=== PATIENT | female | born 1970 | race Caucasian/White ===

== ENCOUNTER → 2017-04-13 20:19 | Outpatient (CLI) | payer OTHER, SELFPAY | PROVIDERS: Family Provider Family Medicine; PCP Family Medicine; Visit Provider Family Medicine | DX: G47.33 Obstructive sleep apnea (adult) (pediatric) (principal) | CPT/HCPCS: 95811 ==

== ENCOUNTER → 2017-06-28 10:54 | Outpatient (CLI) | payer OTHER, SELFPAY ==
[2017-06-28 14:15] LABS: Absolute Lymphocyte Count 1.88 X10^3/ul (0.83-4.51); Absolute Neutrophil Count 5.1 X10^3/uL (2.0-7.7); Basophil# 0.05 X10^3/uL; Basophil% 0.6 % (0-1); Eosinophil# 0.57 X10^3/uL; Eosinophils% 6.9 % (0-5); Hematocrit 40.1 % (37-47); Hemoglobin 13.5 g/dl (12.0-15.0); Lymphocyte # 1.88 X10^3/ul (4.0); Lymphocyte % 22.7 % (19-41); Mean Corp Hgb Conc 33.7 g/gl (32-36); Mean Corpuscular Hgb 30.9 pg (27.0-32.0); Mean Corpuscular Volume 91.8 fL (81-99); Mean Platelet Vol. 10.5 fl (6.2-12.0); Monocyte# 0.65 X10^3/uL; Monocyte% 7.8 % (0-10); Neutrophil # 5.13 X10^3/uL (2.7-7.7); Neutrophil % 61.9 % (47-70); Platelet Count 290 K/mm3 (150-450); RBC Distribution Width CV 13.2 % (11.6-14.6); RBC Distribution Width SD 43.3 fl (35.1-43.9); Red Blood Count 4.37 M/mm3 (4.2-5.4); White Blood Count 8.3 K/mm3 (4.4-11.0)
[2017-06-28 14:16] LABS: POSITIVE COUNT NO; POSITIVE DIFFERENTIAL NO; POSITIVE MORPHOLOGY NO
[2017-06-28 14:21] LABS: Thyroid Stim Hormone (TSH) 1.67 uIU/mL (0.358-3.74)
[2017-07-02 11:29] LABS: HPV APTIMA, High Risk Negative (Negative)
== END ==
PROVIDERS: Family Provider Family Medicine; PCP Family Medicine; Visit Provider Obstetrics & Gynecology
DX: N93.9 Abnormal uterine and vaginal bleeding, unspecified (principal); N39.3 Stress incontinence (female) (male); Z12.4 Encounter for screening for malignant neoplasm of cervix
CPT/HCPCS: 36415; 84443; 85025; 87070; 87086; 87088; 87186; 87205; 88175; G0145

== ENCOUNTER 2017-08-29 06:36 | Day surgery (SDC) | payer OTHER, SELFPAY ==
--- NOTE | 2017-08-29 | SEP_PTH ---
PATIENT: MADHURI MCDERMOTT LOC: [facility] [place] U#:[id number] AGE/SX: 46/F ROOM: RE08/29/[address]: Dr. Manny Sexton MD : 1970 BED: DIS: 08/29/2017 SPEC #: [id number] RECD: 08/29/17 14:55 STATUS: [place] RAINE #: [id number] MARIA LUISA: 08/29/17 00:[address]: Manny Sexton DEPT: SURGICAL PATHOLOGY RECD BY: Dirk Wood ENTERED: 08/29/17 14:55 SP TYPE: SEPTUM OTHR DR: Dr. Clark Uribe MD Tissues: Nasal septum, NOS Procedures: Decalcification bone/plaque Surgery Specimen Level III HEADER OPERATION: Septoplasty, submucous resection inferior turbinates PRE-OP DIAGNOSIS: Nasal congestion, deviated nasal septum, hypertrophy of nasal turbinates TISSUE SUBMITTED: Inferior turbinate tissue, nasal septum MICROSCOPIC DIAGNOSIS Inferior turbinate tissue and nasal septum: Fragments of bone and cartilage and benign respiratory mucosa, clinically deviated nasal septum and hypertrophy of nasal turbinates. TERRELL:artemio 09/01/17 MICROSCOPIC DESCRIPTION Slides are reviewed. GROSS DESCRIPTION Received in fixative is one container labeled with the patient's name and designated nasal septum inferior turbinate tissue. The specimen consists of multiple fragments of cartilage and bone mixed with blood clot that in aggregate measure 5 x 3 x 0.3 cm. The entire specimen is submitted in two cassettes after decalcification. / TERRELL:artemio 08/29/17 TC:5 CPT: 66452, 18533
--- NOTE | 2017-08-29 06:47 | EKG12_ITS ---
Test Reason : PREOP Blood Pressure : / mmHG Vent. Rate : 069 BPM Atrial Rate : 069 BPM P-R Int : 174 ms QRS Dur : 086 ms QT Int : 410 ms P-R-T Axes : 047 038 018 degrees QTc Int : 439 ms Normal sinus rhythm Low voltage QRS Borderline ECG No previous ECGs available Confirmed by VERA DOOLEY, VERN ([id number]), multimedia editor GEORGI CHENG ([id number]) on 09/01/2017 11:18:08 AM Referred By: Manny Sexton Confirmed By:VERN GAMEZ MD
[2017-08-29 07:01] LABS: Internal QC Validated? YES +Cl - CLEAR BKGD; Pregnancy, Urine Negative Negative
[2017-08-29 07:07] VITALS: BP 114/67; PULSE 72; RESP 16; TEMP 37.1; O2SAT 97; BMI 37.0
--- NOTE | 2017-08-29 07:59 | PCM.DC ---
You will use the following diet at home:: Regular Discharge Activity: Return to Normal Activity, - - NO nose blowing Additional Activity Instructions:: Start saline nasal spray on 08/30/17...3 sprays each nostril three times a day. Allergies/Adverse Reactions: Allergies No Known Allergies Allergy (Unverified 06/28/17 09:59) Medications to take at Discharge albuterol sulfate HFA 90 mcg/actuation aerosol inhaler 1 puff INHALATION Q6H 06/28/17 apremilast 30 mg tablet 30 mg PO BID 06/28/17 bupropion HCl SR 150 mg tablet,12 hr sustained-release 150 mg PO BID 06/28/17 fluticasone 250 mcg-salmeterol 50 mcg/dose blistr powdr for inhalation 1 inh INHALATION ONCE 06/28/17 pantoprazole 40 mg tablet,delayed release 40 mg PO QDAY 06/28/17 Primary Care Physician: Clark Uribe MD [Primary Care Provider] -
--- NOTE | 2017-08-29 08:02 | DCINST_ITS ---
You will use the following diet at home:: Regular Discharge Activity: Return to Normal Activity, - - NO nose blowing Additional Activity Instructions:: Start saline nasal spray on 08/30/17...3 sprays each nostril three times a day. Allergies/Adverse Reactions: Allergies No Known Allergies Allergy (Unverified 06/28/17 09:59) Medications to take at Discharge albuterol sulfate HFA 90 mcg/actuation aerosol inhaler 1 puff INHALATION Q6H apremilast 30 mg tablet 30 mg PO BID 06/28/17 bupropion HCl SR 150 mg tablet,12 hr sustained-release 150 mg PO BID 06/28/17 fluticasone 250 mcg-salmeterol 50 mcg/dose blistr powdr for inhalation 1 inh INHALATION ONCE 06/28/17 pantoprazole 40 mg tablet,delayed release 40 mg PO QDAY 06/28/17 Primary Care Physician: Clark Uribe MD [Primary Care Provider] -
[2017-08-29] MEDS: Oxymetazoline 0.05% 1 SPRAY SPRAY.BTL 15 SPRAY (08:23)
[2017-08-29] MEDS: Mupirocin Ointment 22gm Tube 1 APPLIC (08:24)
--- NOTE | 2017-08-29 09:11 | PCM.OPRPT ---
Report of Operation Date of Procedure: 08/29/17 Pre-Operative Diagnosis: nasal airway obstruction. deviated septum. Inferior turbinate hypertrophy Post-Operative Diagnosis: same Surgery/Procedure Performed:: Septoplasty. Submucous resection inferior turbinates Type of Anesthesia:: General Anesthesiologist: Braulio Williamson Specimen's removed: septum,turbinate contents Estimated Blood Loss (mL): minimal Description of Procedure: The patient was taken to the operating room on 08/29/17. She was placed in the supine position on the OR cart. She was given sufficient general anesthesia. The head of bed was then elevated 30 degrees. She was draped steriley. 1% lidocaine with epinephrine ([id number]) was injected into the septum, collumela, anterior aspect of the inferior turbinates, nasal floor. After sufficient vasoconstriction, a hemitransfixtion incision was made on the right with a 15 blade. This was carried down to the septum sharply. I established a plane on the left quadrangular cartilage. The mucoperichondrium was elevated using a freer elevator on the left. Anterior and posterior tunnels were created. The frida cartilage junction was and the mucoperichondrium was elevated off on the right. The deviated portions of the frida septum were taken out using open terell madera forceps. A large spur was removed on the right. The posterior portion of the quadrangular cartilage was removed with D knife. The cartilage was taken off of the maxillary crest. The crest was deviated to the left and this was removed with a hammer and chisel. Hemostasis was achieved with suction cautery, afrin and floseal. Next, an incision was placed at the anterior aspect of the right inferior turbinate with a 15 blade at the mucocutaneous junction. A submucous plane was established using a Sebastien elevator. Submucous resection was carried out using a Shaver. The incision was then closed with 4-0 chromic. Next, an incision was placed at the anterior aspect of the left inferior turbinate with a 15 blade at the mucocutaneous junction. A submucous plane was established using a [place] elevator. Submucous resection was carried out using a Shaver. The incision was then closed with 4-0 chromic. The hemitransfixtion incision was then closed with interrupted 4-0 chromic. Bright nasal splints were applied to each side of the septum and sewn through and through with 3-0 silk. The patient was then awoken and brought to the recovery room in stable condition. Blood loss minimal, replacement none. Sponge, needle and instrument count were correct at the end of the procedure.
[2017-08-29 09:18] VITALS: BP 114/67; BP 140/83; PULSE 81; RESP 18; TEMP 36.2; O2SAT 94
[2017-08-29 09:30] VITALS: BP 114/67; BP 142/92; PULSE 83; RESP 18; O2SAT 100
[2017-08-29 09:45] VITALS: BP 114/67; BP 131/80; PULSE 76; RESP 16; O2SAT 93
[2017-08-29 09:58] VITALS: BP 114/67; BP 134/86; PULSE 77; RESP 18; TEMP 37; O2SAT 95
[2017-08-29 11:09] VITALS: BP 114/67
== END 2017-08-29 11:10 | disposition home or self-care (01) ==
LOC: SDC 06:37 → AC 06:37
PROVIDERS: Anesthesiology; Family Provider Family Medicine; PCP Family Medicine; Visit Provider Otolaryngology
PROC: (CPT 30140; principal; 2017-08-29 07:50)
DX: J34.2 Deviated nasal septum (principal); J34.3 Hypertrophy of nasal turbinates; R09.81 Nasal congestion; G47.30 Sleep apnea, unspecified; E78.00 Pure hypercholesterolemia, unspecified; J45.909 Unspecified asthma, uncomplicated; K21.9 Gastro-esophageal reflux disease without esophagitis; F41.9 Anxiety disorder, unspecified; G43.909 Migraine, unspecified, not intractable, without status migrainosus; F32.9 Major depressive disorder, single episode, unspecified; L40.50 Arthropathic psoriasis, unspecified; Z87.891 Personal history of nicotine dependence; Z79.51 Long term (current) use of inhaled steroids; Z79.891 Long term (current) use of opiate analgesic; Z79.899 Other long term (current) drug therapy
CPT/HCPCS: 30140; 30520; 81025; 88304; 88311; 93005; J7120; J0330; J2405

== ENCOUNTER → 2018-03-28 16:50 | Outpatient (CLI) | payer OTHER, SELFPAY ==
--- NOTE | 2018-03-28 16:53 | CT_ITS ---
STUDY: CT ABDOMEN AND PELVIS WITHOUT CONTRAST REASON FOR EXAM: Female, 47 years old. KIDNEY STONES, PASSED 2 STONES IN 6 MONTHS RADIATION DOSAGE (If Supplied By Facility): CTDIvol = ( 12.29 ) mGy, DLP = ( 629.47 ) mGycm TECHNIQUE: Transaxial images were obtained from the dome of the diaphragm to the symphysis pubis without oral contrast, and without intravenous contrast. Sagittal and coronal images were reconstructed. Individualized dose optimization techniques were used for this CT. COMPARISON: July 10, 2008 FINDINGS: The visualized lung bases are unremarkable. The visualized portions of the heart are within normal limits. There is mild fatty infiltration of the liver with focal fatty sparing in the gallbladder fossa region. The gallbladder is contracted. No biliary ductal dilatation. Normal spleen. Normal pancreas. Normal bilateral adrenal glands. Bilateral punctate nephrolithiasis with small stones in the upper mid and lower poles noted. No hydronephrosis. No evidence of hydroureter. No ureteral stones or bladder stones. The urinary bladder is partially contracted otherwise unremarkable in appearance. Normal visualized stomach. Normal small intestine. Normal colon. The appendix is visualized and appears normal. Normal abdominal aorta. Normal inferior vena cava. Normal retroperitoneum. Normal urinary bladder. Normal abdominal wall. Normal osseous structures. CT/Abdomen/Pelvis without Cont IMPRESSION: Bilateral punctate nephrolithiasis without evidence of ureteral or bladder stone. Mild fatty infiltration of the liver. Electronically Signed: Teresita Valenzuela MD at 15:48 EST , Service support ,
== END ==
PROVIDERS: Family Provider Family Medicine; PCP Family Medicine; Referring Provider Nurse Practitioner Adult Health; Visit Provider Nurse Practitioner Adult Health
DX: N20.0 Calculus of kidney (principal)
CPT/HCPCS: 74176

== ENCOUNTER → 2018-03-29 13:18 | Outpatient (CLI) | payer OTHER, SELFPAY ==
[2017-11-01 09:14] VITALS: BMI 36.3
[2018-04-03 22:07] LABS: Ca Oxalate, Dihydrate 30 % (.); Ca Oxalate, Monohydrate 60 % (.); Calcium Phosphate 10 % (.)
--- OUTSIDE RECORDS SUMMARY | 2018-06-03 09:50 | XMS RPT_ITS ---
:1970 Author Organization OHIP Support Name Relationship Address Phone BALDEMAR HANNAH Unavailable [address] + [place] [address] [facility] NEAL Unavailable [address] + [place] [address] HANNAH GOOD Unavailable [address] + [place] [address] [facility] NE[facility] Unavailable [address] + [place] [address] HANNAH GOOD Unavailable [address] + [place] [address] [facility] NE[facility] Unavailable [address] + [place] [address] HANNAH GOOD Unavailable [address] + [place] [address] [facility] NE[facility] Unavailable [address] +[place] [address] HANNAH GOOD Unavailable [address] + [place] [address] [facility] NEAL Unavailable [address] +[place] [address] HANNAH GOOD Unavailable [address] + [place] [address] [facility] NEAL Unavailable [address] +[place] [address] HANNAH GOOD Unavailable [phone] [place] [address] [facility] NEAL Unavailable [address] +[place] [address] HANNAH GOOD Unavailable [address] + [place] [address] [facility] NEAL Unavailable [address] +[place] [address] HANNAH GOOD Unavailable [address] + [place] [address] [facility] NEAL Unavailable [address] +[place] [address] Care Team Providers Name Role Phone DIANA JACKSON (CENTRAL STERILE TECHNICIAN) Attending Unavailable CLARK JAVED A Referring Unavailable ABDULAZIZ ALVAREZ Admitting Unavailable ABDULAZIZ ALVAREZ Attending Unavailable DIANA JACKSON (CENTRAL STERILE TECHNICIAN) Referring Unavailable DIANA JACKSON (CENTRAL STERILE TECHNICIAN) Attending Unavailable DIANA JACKSON (CENTRAL STERILE TECHNICIAN) Referring Unavailable TEGAN, CLARK A Referring Unavailable PIYUSH SMITH (PA) Attending Unavailable PIYUSH SMITH (PA) Referring Unavailable Amber Goodman Attending Unavailable Amber Goodman Referring Unavailable Tegan, Clark Primary Care Unavailable Yusuf Pichardo Attending Unavailable Yusuf Pichardo Referring Unavailable Tegan, Clark Primary Care Unavailable Amber Goodman Attending Unavailable Tegan, Clark Primary Care Unavailable TeganSukhdeep rossrey Attending Unavailable Tegan, Clark Primary Care Unavailable Keyonna Lainez Attending Unavailable Tegan, Clark Referring Unavailable Tegan, Clark Primary Care Unavailable Keyonna Lainez Attending Unavailable Tegan, Clark Primary Care Unavailable Manny Sexton Attending Unavailable Carlie, Manny Referring Unavailable Tegan, Clark Primary Care Unavailable Zack Prince Attending Unavailable Carlie Manny Referring Unavailable Keyonna Lainez Attending Unavailable Tegan, Clark Referring Unavailable Tegan, Clark Primary Care Unavailable PROBLEMS PROBLEMS DATE TYPE CONDITION / CODE ATTENDING STATUS SOURCE 03/29/2018 Unknown N20.0 - Calculus of Yusuf Pichardo Active [place] [facility] N20.0(ICD-10) Hospital Repository 03/31/2017 Active Encounter for NA Active [place] screening for [facility] Main diabetes mellitus / [place] Z13.1(ICD-10) Repository 03/31/2017 Active Mixed hyperlipidemia NA Active [place] / E78.2(ICD-10) Clinic Main [place] Repository 12/10/2015 Active Obesity, unspecified NA Active [place] / E66.9(ICD-10) Clinic Main [place] Repository 03/15/2018 Active Other specified NA Active [place] abnormal findings of Clinic Main blood chemistry / [place] R79.89(ICD-10) Repository 09/29/2017 Unknown Z79.899 - Other long [place], [place] Active [place] term (current) drug Community therapy / Hospital Z79.899(ICD-10) Repository 06/28/2017 Unknown N93.9 - Abnormal Fatou, Active [place] uterine and vaginal [facility] bleeding, Hospital unspecified / Repository N93.9(ICD-10) 06/28/2017 Unknown Z12.4 - Encounter Fatou, Active [place] for screening for [facility] malignant neoplasm Hospital of cervix / Repository Z12.4(ICD-10) 05/12/2017 Active Functional dyspepsia ALVAREZ, Active [place] / K30(ICD-10) [facility] Repository PROCEDURES PROCEDURES No Procedure Records FoundRESULTS RESULTS CALCULI, URINARY W / Collected: 03/29/2018 Status: F Source: [place] PHOTO 1:35 PM [facility] REPOSITORY TYPE CODE TESTS RESULT OUT OF RANGE REFERENCE UNITS LAB L3650.0200 . Normal COLOR Varma LAB L3650.0300 . mm Normal SIZE Comment Result Comment: Specimen received as whole stones. LAB L3650.0400 . mg Normal WEIGHT 105.0 LAB L3650.0500 . Normal . Comment Result Comment: Percentage (Represents the % composition) LAB L3650.0600 . % CA OXAL DIHYDR 30 Normal LAB L3650.0700 . % CA OXAL 60 Normal [place] LAB L3650.0800 . % CA PHOSPHATE 10 Normal LAB L3650.0900 . MAG MAYITO PHOS Test not Normal performed LAB L3650.1000 . URIC ACID Test not Normal performed LAB L3650.1100 . URIC ACID Test not Normal DIHYD performed LAB L3650.1200 . AMM ACID URATE Test not Normal performed LAB L3650.1300 . NA ACID URATE Test not Normal performed LAB L3650.1400 . CA HYDROG PHOS Test not Normal performed LAB L3650.1500 . CYSTINE Test not Normal performed LAB L3650.1600 . CHOLESTEROL Test not Normal performed LAB L3650.1700 . CA Test not Normal BILIRUBINATE performed LAB L3650.1800 . CA CARBONATE Test not Normal performed LAB L3650.1900 . TRIAMTERENE Test not Normal performed LAB L3650.2000 . NEWBERYITE Test not Normal performed LAB L3650.2100 . DRIED BLOOD Test not Normal performed LAB L3650.2200 . CELL MATERIAL Test not Normal performed LAB L3650.2250 . NIDUS No Nidus Normal visualized LAB L3650.2325 . SHELL Test not Normal performed LAB L3650.2350 . SURFACE Comment: Normal CRYSTAL Result Comment: Calcium oxalate dihydrate LAB L3650.2400 . Normal Test not COMMENT performed LAB L3650.2500 . Normal Test not COMMENT performed LAB L3650.2600 . Normal Comment PHOTO Result Comment: Photograph will follow under separate cover. LAB L3650.2700 . Normal COMMENT Comment Result Comment: Physician questions regarding Calculi Analysis contact [employer] at: [phone]. LAB L3650.2800 . Normal COMMENT Comment Result Comment: Calculi report with photograph will follow via computer, mail or copy room technician delivery. LAB L3650.2900 . Normal Disclaimer Comment Result Comment: This test was developed and its performance characteristics determined by [employer]. It has not been cleared or approved by the Food and Drug Administration. Performed at: [address] [id number] Flux Tube Attendant: Mary Kay Whitfield MD, Phone: [phone] Performed By: #### L3650.0100 #### [facility] (refer to report for specific site) refer to report for address and phone number ABDOMEN/PELVIS WITHOUT Observed: 03/28/2018 Status: F Source: [place] CONT 4:53 PM [facility] REPOSITORY [facility] Services [address] [place] [address] Abdomen/Pelvis without Cont MR#: [id number] Acct: [id number] Name: GOODCHIKA K Rep #: [id number] : 1970 F 47 From: Teresita Valenzuela MD PCP: Clark Javed MD Status: REG CLI Study: Abdomen/Pelvis without Cont Date of Exam: 03/28/18 Exam# [id number] Ordering Dr: Amber Goodman CENTRAL STERILE TECHNICIAN-C STUDY: CT ABDOMEN AND PELVIS WITHOUT CONTRAST REASON FOR EXAM: Female, 47 years old. KIDNEY STONES, PASSED 2 STONES IN 6 MONTHS RADIATION DOSAGE (If Supplied By Facility): CTDIvol = ( 12.29 ) mGy, DLP = ( 629.47 ) mGycm TECHNIQUE: Transaxial images were obtained from the dome of the diaphragm to the symphysis pubis without oral contrast, and without intravenous contrast. Sagittal and coronal images were reconstructed. Individualized dose optimization techniques were used for this CT. COMPARISON: July 10, 2008 FINDINGS: The visualized lung bases are unremarkable. The visualized portions of the heart are within normal limits. There is mild fatty infiltration of the liver with focal fatty sparing in the gallbladder fossa region. The gallbladder is contracted. No biliary ductal dilatation. Normal spleen. Normal pancreas. Normal bilateral adrenal glands. Bilateral punctate nephrolithiasis with small stones in the upper mid and lower poles noted. No hydronephrosis. No evidence of hydroureter. No ureteral stones or bladder stones. The urinary bladder is partially contracted otherwise unremarkable in appearance. Normal visualized stomach. Normal small intestine. Normal colon. The appendix is visualized and appears normal. Normal abdominal aorta. Normal inferior vena cava. Normal retroperitoneum. Normal urinary bladder. Normal abdominal wall. Normal osseous structures. CT/Abdomen/Pelvis without Cont IMPRESSION: Bilateral punctate nephrolithiasis without evidence of ureteral or bladder stone. Mild fatty infiltration of the liver. Electronically Signed: Teresita Valenzuela MD at 15:48 EST , Service support , CC: Clark Javed MD; Amber Goodman NP Certified Nurse Operating Room: Signed PROGRESS Observed: 03/24/2018 Status: COMPLETED Source: [place] 11:08 AM [facility] REPOSITORY HNO ID: [id number] Author: Edith Smith Service: (none) Author Type: Physician Paste Maker Type: Progress Notes Filed: 03/24/2018 12:35 PM Note Text: Chief Complaint Patient presents with: Physical Results HPI Chika Good is a 47 year old female who presents here today for Physical. Patient has been working out every day (5 x/week) Has cut back on carbs and sugars. Adding more veggies and nuts. Last 4 Encounter Wt Readings: Date: Wt: 03/24/2018 90.8 kg (200 lb 3.2 oz) 10/10/2017 93.9 kg (207 lb) 06/14/2017 97.5 kg (215 lb) 05/21/2017 0 kg (0 lb) Past medical history, appointments, medications, allergies reviewed. Previous Medical History PAST MEDICAL HISTORY Diagnosis Date - Abnormal glandular Papanicolaou smear of cervix Abn. Pap smear (cervix) - Acute gastritis without mention of hemorrhage - Allergic rhinitis, seasonal - Anxiety 07/07/2012 - Depression 07/07/2012 - Dysphagia, unspecified(787.20) - Esophageal stenosis - GERD without esophagitis 12/10/2015 - Hyperlipidemia, mixed 11/01/2014 - Migraine, unspecified, with intractable migraine, so stated, without mention of status migrainosus Migraine - Moderate intermittent asthma without complication seasonal - Obesity (BMI 35.0-39.9 without comorbidity) 06/06/2013 - LITO (obstructive sleep apnea) 01/22/2015 Has a CPAP - Other constipation - Unspecified asthma(493.90) seasonal Previous Surgical History PAST SURGICAL HISTORY Procedure Laterality Date - BREAST BIOPSY W/ULTRASOUND GUIDANCE Left 05/03/15 U/S Needle core upper mid left breast - BREAST REDUCTION 09/2016 - CERVIX UTERI CONIZA LP ELCTRO EXCI 1993 LEEP-Cervix - DELIVERY ONLY 11/19 [facility] - COLONOSCOP W/ OR W/O [facility] SPEC 2003 Colonoscopy - COLONOSCOP W/ OR W/O BRS SPEC 08/21/2008 Colonoscopy - COLONOSCOP W/ OR W/O [facility] SPEC 11-3-15 - EGD 1991 REMOVAL OF FOREIGN BODY - EGD W/O [facility] SPECIMEN W/BX 06/12/08 - EGD W/O OR W/BRUSH/WASH 05/16/2017 EGD - ESOPH W/O [facility] SPEC BALLOON DIL 06/12/08 - REMOVAL ADENOIDS,PRIMARY,<12 Y/O Adenoidectomy - REMOVAL OF TONSILS,<12 Y/O Tonsillectomy - SEPTOPLASTY 08/29/2017 Dr. Manny Sxeton-nasal airway obstruction. deviated septum, inferior turbinate hypertrophy Family History FAMILY HISTORY Problem Relation Age of Onset - Asthma Mother - Hypertension Father - Colon Cancer Father Colon polyps - Colon Cancer Maternal Grandfather - Colon Cancer Paternal Grandfather - Blood Disease Sister - Asthma Brother Patient Allergies ALLERGIES No Known Allergies Current Medications Current Outpatient Prescriptions on File Prior to Visit: albuterol HFA (VENTOLIN HFA) 90 mcg/actuation inhaler Inhale 2 Puffs as instructed every 4 hours as needed. Do no substitute with ProAir. fluticasone-salmeterol (ADVAIR DISKUS) 250-50 mcg/dose dsdv Inhale 1 Puff as instructed twice daily. Rinse and gargle mouth after use with water. apremilast (OTEZLA) 30 mg tablet Take 1 tablet by mouth once daily. Per derm L. RHAMNOSUS GG/INULIN (CULTURELLE PROBIOTICS ORAL) Take by mouth. buPROPion SR (ZYBAN SR; WELLBUTRIN SR) 150 mg 12 hr tablet Take 1 tablet by mouth twice daily. pantoprazole DR (PROTONIX) 40 mg tablet take 1 tablet by mouth once daily 1/2 HOUR BEFORE BREAKFAST CPAP Initiate AutoPAP @ 5-15 cm of water with humidification. Mask (per patient preference) optional chin strap (if indicated), filters, tubing / heated tubing, heated humidity and lifetime supplies. Dx. LITO G47.33 327.23 (Patient not taking: Reported on 10/10/2017 ) Cholecalciferol, Vitamin D3, (VITAMIN D) 1,000 unit tab Take 1,000 Units by mouth once daily. No current facility-administered medications on file prior to visit. Social History Social History Marital status: Spouse name: Hannah Years of education: 14 Number of children: 1 Social History Main Topics Smoking status: Former Smoker Packs/day: 0.00 Years: 15.00 Types: Cigarettes Quit date: 07/12/2006 Smokeless tobacco: Never Used Comment: SOCIAL SMOKER IN PAST Alcohol use: Yes Comment: rare,NOT WHILE Drug use: No Sexual activity: Yes Partners with: Male Review of Symptoms REVIEW OF SYSTEMS GENERAL: No weight loss, malaise or fevers HEENT: recently dx of astigmatism Negative for frequent or significant headaches, No changes in hearing, no nose bleeds or other nasal problems NECK: Negative for lumps, goiter, pain and significant neck swelling RESPIRATORY: Negative for cough, hemoptysis, wheezing, COPD, dyspnea or shortness of breath CARDIOVASCULAR: Negative for chest pain, leg swelling, CHF or palpitations GI: No nausea, vomiting, or diarrhea and No worsening heartburn or reflux symptoms : currently seeing urology for freq kidney stones MUSCULOSKELETAL: Negative for joint pain or swelling, back pain or muscle pain SKIN: psoriasis- sees Dr. Caban Negative for change lesions, rash, and itching PSYCH: Negative for sleep disturbance, mood disorder and recent psychosocial stressors HEMATOLOGY/LYMPHOLOGY: Negative for prolonged bleeding, bruising easily or swollen nodes ENDOCRINE: Negative for cold or heat intolerance, polyuria, polydipsia and goiter NEURO: No history of headaches, syncope, paralysis, seizures or tremors EXAM: BP 120/70 Pulse 72 Temp 36.4 ?C (97.6 ?F) (Tympanic) Resp 16 Ht 160 cm (5' 3) Wt 90.8 kg (200 lb 3.2 oz) BMI 35.46 kg/m? General Appearance: Well appearing, alert, in no acute distress, well-hydrated, well nourished.. Skin: Skin color, texture, turgor normal, no suspicious rashes or lesions. Head: Normocephalic, no masses, lesions, tenderness or abnormalities. Ears: Not examined, patient just had eyes dilated at eye doctor's appt.. Nose/Sinuses: Nares normal, septum midline, mucosa normal, no drainage or sinus tenderness. Oropharynx: Lips, mucosa, and tongue normal, teeth and gums normal, oropharynx normal. Neck: Supple, no adenopathy; thyroid symmetric, normal size, no bruits. Lungs: lungs clear to auscultation. No wheezing, rhonchi, rales. Heart: RRR without murmur, gallop, or rubs. No ectopy. Abdomen: Normal abdominal exam, Abdomen soft, non-tender. Bowel sounds normal. No masses, organomegaly. Extremities: No deformities, edema, skin discoloration, clubbing or cyanosis. Good capillary refill. . Musculoskeletal: No joint swelling, deformity, or tenderness. Peripheral Pulses: Normal. Neurologic: Gait normal. Reflexes normal and symmetric. Sensation grossly intact.. Health Maintenance List MAMMOGRAM due on 05/21/2015 ANNUAL PCP TEAM CHRONIC DISEASE VISIT due on 03/31/2018 STEROID INHALER ADHERENCE due on 04/14/2018 COLORECTAL CANCER SCREENING,SEE MODIFIER due on 01/15/2020 PAP EVERY 5 YEARS due on 04/07/2020 HPV EVERY 5 YEARS due on 04/07/2020 DIABETES SCREEN due on 03/15/2021 DTAP,TDAP,TD(2 - Td) due on 03/29/2022 LIPID SCREEN due on 03/15/2023 INFLUENZA Completed Data reviewed Component Latest Ref Rng AND Units 11/01/2014 03/15/2018 Color Yellow Yellow Clarity Clear Cloudy (A) Glucose, Urine Negative mg/dL Negative Bilirubin, Urine Negative Negative Ketones, Urine Negative Negative Specific Arp, Ur 1.005 - 1.030 1.016 Hemoglobin/Blood,Ur Negative 1+ (A) pH, Urine 4.5 - 8.0 6.0 Protein, Urine Negative mg/dL Negative Urobilinogen Normal Normal Nitrites Negative Negative Leukest Negative 1+ (A) Comments SEE COMMENT Urine Chiara Comment SEE COMMENT WBC, Urine 0 - 5 /HPF 0-5 RBC, Urine 0 - 3 /HPF 0-3 Epithelial Cells /HPF SEE COMMENT Yeast 0 /HPF Few (A) Protein, Total 6.3 - 8.0 g/dL 6.5 Albumin 3.9 - 4.9 g/dL 4.2 Calcium 8.5 - 10.2 mg/dL 9.0 Bilirubin, Total 0.2 - 1.3 mg/dL 0.3 Alkaline Phosphatase 34 - 123 U/L 65 AST 13 - 35 U/L 16 Glucose 74 - 99 mg/dL 86 BUN 7 - 21 mg/dL 13 Creatinine 0.58 - 0.96 mg/dL 0.73 Sodium 136 - 144 mmol/L 139 Potassium 3.7 - 5.1 mmol/L 4.0 Chloride 97 - 105 mmol/L 105 CO2 22 - 30 mmol/L 23 Anion Gap 9 - 18 mmol/L 11 ALT 7 - 38 U/L 14 eGFR- >60 eGFR-All Other Races . >60 Triglyceride <150 mg/dL 116 130 Cholesterol, Total <200 mg/dL 218 (H) 231 (H) HDL Cholesterol >39 mg/dL 48 (L) 43 VLDL Cholesterol <30 mg/dL 23 26 LDL Cholesterol <100 mg/dL 147 (H) 162 (H) Fasting Time hrs 12 12 TC:HDL Ratio <5.10 4.54 5.37 (H) LDL:HDL Ratio <2.54 3.06 3.77 (H) Non HDL Cholesterol <130 mg/dL 170 (H) 188 (H) Hemoglobin A1C 4.3 - 5.6 % 4.8 Estimated Average Glucose mg/dL 91 TSH 0.400 - 5.500 uU/mL 4.470 Free T4 0.9 - 1.7 ng/dL 0.9 ASSESSMENT/PLAN: 1. Well adult exam - ICD9: V70.0, ICD10: Z00.00 (primary diagnosis) - Encouraged monthly Breast Self Exam - Follow up for annual exam in one year. 2. Moderate intermittent asthma without complication - ICD9: 493.90, ICD10: J45.20 Stable - Continue current meds - Avoidance of triggers recommended - FLUTICASONE 250 MCG-SALMETEROL 50 MCG/DOSE BLISTR POWDR FOR INHALATION 3. Anxiety - ICD9: 300.00, ICD10: F41.9 Can use hydroxyzine prn 4. Hyperlipidemia, mixed - ICD9: 272.2, ICD10: E78.2 - poor control and - newly diagnosed - Begin treatment with atorvastatin (Lipitor) 10 mg - Discussed the benefits of regular aerobic exercise and weight loss. - Check fasting lipid panel and ALT in 6 weeks. - Encouraged following a low carbohydrate, healthy oil intake diet. - LIPID PANEL BASIC - CONSULT TO [facility] - HEPATIC FUNCTION PNL 5. Screening mammogram, encounter for - ICD9: V76.12, ICD10: Z12.31 - Completed pelvic and breast exam - Encouraged monthly BSE - Follow up for annual exam in one year. - ROM SCREENING 6. Obesity (BMI 35.0-39.9 without comorbidity) - ICD9: 278.00, ICD10: E66.9 Start contrave Recheck in 2 months. PIYUSH SMITH PA-C CNOV Observed: 03/24/2018 Status: COMPLETED Source: [place] 10:40 AM [facility] REPOSITORY Office Visit (FAMPWS) CHIKA GOOD ([id number]) 1970 F T Date Time Provider Department 03/24/18 10:40 AM JOE SMITH) FAMPWS During your visit today, we recorded the following information about you: Temperature Pulse Respiration Blood pressure 97.6 degrees 72/minute 16/minute 120/70 Weight Height 90.8 kg 1.6 m PIYUSH SMITH PA-C 03/24/2018 12:35 PM Signed Chief Complaint Patient presents with: Physical Results HPI Chika Good is a 47 year old female who presents here today for Physical. Patient has been working out every day (5 x/week) Has cut back on carbs and sugars. Adding more veggies and nuts. Last 4 Encounter Wt Readings: Date: Wt: 03/24/2018 90.8 kg (200 lb 3.2 oz) 10/10/2017 93.9 kg (207 lb) 06/14/2017 97.5 kg (215 lb) 05/21/2017 0 kg (0 lb) Past medical history, appointments, medications, allergies reviewed. Previous Medical History PAST MEDICAL HISTORY Diagnosis Date - Abnormal glandular Papanicolaou smear of cervix Abn. Pap smear (cervix) - Acute gastritis without mention of hemorrhage - Allergic rhinitis, seasonal - Anxiety 07/07/2012 - Depression 07/07/2012 - Dysphagia, unspecified(787.20) - Esophageal stenosis - GERD without esophagitis 12/10/2015 - Hyperlipidemia, mixed 11/01/2014 - Migraine, unspecified, with intractable migraine, so stated, without mention of status migrainosus Migraine - Moderate intermittent asthma without complication seasonal - Obesity (BMI 35.0-39.9 without comorbidity) 06/06/2013 - LITO (obstructive sleep apnea) 01/22/2015 Has a CPAP - Other constipation - Unspecified asthma(493.90) seasonal Previous Surgical History PAST SURGICAL HISTORY Procedure Laterality Date - BREAST BIOPSY W/ULTRASOUND GUIDANCE Left 05/03/15 U/S Needle core upper mid left breast - BREAST REDUCTION 09/2016 - CERVIX UTERI CONIZA LP ELCTRO EXCI 1993 LEEP-Cervix - DELIVERY ONLY 11/19 [facility] - COLONOSCOP W/ OR W/O [facility] SPEC 2003 Colonoscopy - COLONOSCOP W/ OR W/O [facility] SPEC 08/21/2008 Colonoscopy - COLONOSCOP W/ OR W/O [facility] SPEC 15 - EGD 1991 REMOVAL OF FOREIGN BODY - EGD W/O [facility] SPECIMEN W/BX 06/12/08 - EGD W/O OR W/BRUSH/WASH 05/16/2017 EGD - ESOPH W/O [facility] SPEC BALLOON DIL 06/12/08 - REMOVAL ADENOIDS,PRIMARY,<12 Y/O Adenoidectomy - REMOVAL OF TONSILS,<12 Y/O Tonsillectomy - SEPTOPLASTY 08/29/2017 Dr. Manny Sexton-nasal airway obstruction. deviated septum, inferior turbinate hypertrophy Family History FAMILY HISTORY Problem Relation Age of Onset - Asthma Mother - Hypertension Father - Colon Cancer Father Colon polyps - Colon Cancer Maternal Grandfather - Colon Cancer Paternal Grandfather - Blood Disease Sister - Asthma Brother Patient Allergies ALLERGIES No Known Allergies Current Medications Current Outpatient Prescriptions on File Prior to Visit: albuterol HFA (VENTOLIN HFA) 90 mcg/actuation inhaler Inhale 2 Puffs as instructed every 4 hours as needed. Do no substitute with ProAir. fluticasone-salmeterol (ADVAIR DISKUS) 250-50 mcg/dose dsdv Inhale 1 Puff as instructed twice daily. Rinse and gargle mouth after use with water. apremilast (OTEZLA) 30 mg tablet Take 1 tablet by mouth once daily. Per derm L. RHAMNOSUS GG/INULIN (CULTURELLE PROBIOTICS ORAL) Take by mouth. buPROPion SR (ZYBAN SR; WELLBUTRIN SR) 150 mg 12 hr tablet Take 1 tablet by mouth twice daily. pantoprazole DR (PROTONIX) 40 mg tablet take 1 tablet by mouth once daily 1/2 HOUR BEFORE BREAKFAST CPAP Initiate AutoPAP @ 5-15 cm of water with humidification. Mask (per patient preference) optional chin strap (if indicated), filters, tubing / heated tubing, heated humidity and lifetime supplies. Dx. LITO G47.33 327.23 (Patient not taking: Reported on 10/10/2017 ) Cholecalciferol, Vitamin D3, (VITAMIN D) 1,000 unit tab Take 1,000 Units by mouth once daily. No current facility-administered medications on file prior to visit. Social History Social History Marital status: Spouse name: Hannah Years of education: 14 Number of children: 1 Social History Main Topics Smoking status: Former Smoker Packs/day: 0.00 Years: 15.00 Types: Cigarettes Quit date: 07/12/2006 Smokeless tobacco: Never Used Comment: SOCIAL SMOKER IN PAST Alcohol use: Yes Comment: rare,NOT WHILE Drug use: No Sexual activity: Yes Partners with: Male Review of Symptoms REVIEW OF SYSTEMS GENERAL: No weight loss, malaise or fevers HEENT: recently dx of astigmatism Negative for frequent or significant headaches, No changes in hearing, no nose bleeds or other nasal problems NECK: Negative for lumps, goiter, pain and significant neck swelling RESPIRATORY: Negative for cough, hemoptysis, wheezing, COPD, dyspnea or shortness of breath CARDIOVASCULAR: Negative for chest pain, leg swelling, CHF or palpitations GI: No nausea, vomiting, or diarrhea and No worsening heartburn or reflux symptoms : currently seeing urology for freq kidney stones MUSCULOSKELETAL: Negative for joint pain or swelling, back pain or muscle pain SKIN: psoriasis- sees Dr. Caban Negative for change lesions, rash, and itching PSYCH: Negative for sleep disturbance, mood disorder and recent psychosocial stressors HEMATOLOGY/LYMPHOLOGY: Negative for prolonged bleeding, bruising easily or swollen nodes ENDOCRINE: Negative for cold or heat intolerance, polyuria, polydipsia and goiter NEURO: No history of headaches, syncope, paralysis, seizures or tremors EXAM: BP 120/70 Pulse 72 Temp 36.4 ?C (97.6 ?F) (Tympanic) Resp 16 Ht 160 cm (5' 3) Wt 90.8 kg (200 lb 3.2 oz) BMI 35.46 kg/m? General Appearance: Well appearing, alert, in no acute distress, well-hydrated, well nourished.. Skin: Skin color, texture, turgor normal, no suspicious rashes or lesions. Head: Normocephalic, no masses, lesions, tenderness or abnormalities. Ears: Not examined, patient just had eyes dilated at eye doctor's appt.. Nose/Sinuses: Nares normal, septum midline, mucosa normal, no drainage or sinus tenderness. Oropharynx: Lips, mucosa, and tongue normal, teeth and gums normal, oropharynx normal. Neck: Supple, no adenopathy; thyroid symmetric, normal size, no bruits. Lungs: lungs clear to auscultation. No wheezing, rhonchi, rales. Heart: RRR without murmur, gallop, or rubs. No ectopy. Abdomen: Normal abdominal exam, Abdomen soft, non-tender. Bowel sounds normal. No masses, organomegaly. Extremities: No deformities, edema, skin discoloration, clubbing or cyanosis. Good capillary refill. . Musculoskeletal: No joint swelling, deformity, or tenderness. Peripheral Pulses: Normal. Neurologic: Gait normal. Reflexes normal and symmetric. Sensation grossly intact.. Health Maintenance List MAMMOGRAM due on 05/21/2015 ANNUAL PCP TEAM CHRONIC DISEASE VISIT due on 03/31/2018 STEROID INHALER ADHERENCE due on 04/14/2018 COLORECTAL CANCER SCREENING,SEE MODIFIER due on 01/15/2020 PAP EVERY 5 YEARS due on 04/07/2020 HPV EVERY 5 YEARS due on 04/07/2020 DIABETES SCREEN due on 03/15/2021 DTAP,TDAP,TD(2 - Td) due on 03/29/2022 LIPID SCREEN due on 03/15/2023 INFLUENZA Completed Data reviewed Component Latest Ref Rng AND Units 11/01/2014 03/15/2018 Color Yellow Yellow Clarity Clear Cloudy (A) Glucose, Urine Negative mg/dL Negative Bilirubin, Urine Negative Negative Ketones, Urine Negative Negative Specific Arp, Ur 1.005 - 1.030 1.016 Hemoglobin/Blood,Ur Negative 1+ (A) pH, Urine 4.5 - 8.0 6.0 Protein, Urine Negative mg/dL Negative Urobilinogen Normal Normal Nitrites Negative Negative Leukest Negative 1+ (A) Comments SEE COMMENT Urine Chiara Comment SEE COMMENT WBC, Urine 0 - 5 /HPF 0-5 RBC, Urine 0 - 3 /HPF 0-3 Epithelial Cells /HPF SEE COMMENT Yeast 0 /HPF Few (A) Protein, Total 6.3 - 8.0 g/dL 6.5 Albumin 3.9 - 4.9 g/dL 4.2 Calcium 8.5 - 10.2 mg/dL 9.0 Bilirubin, Total 0.2 - 1.3 mg/dL 0.3 Alkaline Phosphatase 34 - 123 U/L 65 AST 13 - 35 U/L 16 Glucose 74 - 99 mg/dL 86 BUN 7 - 21 mg/dL 13 Creatinine 0.58 - 0.96 mg/dL 0.73 Sodium 136 - 144 mmol/L 139 Potassium 3.7 - 5.1 mmol/L 4.0 Chloride 97 - 105 mmol/L 105 CO2 22 - 30 mmol/L 23 Anion Gap 9 - 18 mmol/L 11 ALT 7 - 38 U/L 14 eGFR- >60 eGFR-All Other Races . >60 Triglyceride <150 mg/dL 116 130 Cholesterol, Total <200 mg/dL 218 (H) 231 (H) HDL Cholesterol >39 mg/dL 48 (L) 43 VLDL Cholesterol <30 mg/dL 23 26 LDL Cholesterol <100 mg/dL 147 (H) 162 (H) Fasting Time hrs 12 12 TC:HDL Ratio <5.10 4.54 5.37 (H) LDL:HDL Ratio <2.54 3.06 3.77 (H) Non HDL Cholesterol <130 mg/dL 170 (H) 188 (H) Hemoglobin A1C 4.3 - 5.6 % 4.8 Estimated Average Glucose mg/dL 91 TSH 0.400 - 5.500 uU/mL 4.470 Free T4 0.9 - 1.7 ng/dL 0.9 ASSESSMENT/PLAN: 1. Well adult exam - ICD9: V70.0, ICD10: Z00.00 (primary diagnosis) - Encouraged monthly Breast Self Exam - Follow up for annual exam in one year. 2. Moderate intermittent asthma without complication - ICD9: 493.90, ICD10: J45.20 Stable - Continue current meds - Avoidance of triggers recommended - FLUTICASONE 250 MCG-SALMETEROL 50 MCG/DOSE BLISTR POWDR FOR INHALATION 3. Anxiety - ICD9: 300.00, ICD10: F41.9 Can use hydroxyzine prn 4. Hyperlipidemia, mixed - ICD9: 272.2, ICD10: E78.2 - poor control and - newly diagnosed - Begin treatment with atorvastatin (Lipitor) 10 mg - Discussed the benefits of regular aerobic exercise and weight loss. - Check fasting lipid panel and ALT in 6 weeks. - Encouraged following a low carbohydrate, healthy oil intake diet. - LIPID PANEL BASIC - CONSULT TO [facility] - HEPATIC FUNCTION PNL 5. Screening mammogram, encounter for - ICD9: V76.12, ICD10: Z12.31 - Completed pelvic and breast exam - Encouraged monthly BSE - Follow up for annual exam in one year. - ROM SCREENING 6. Obesity (BMI 35.0-39.9 without comorbidity) - ICD9: 278.00, ICD10: E66.9 Start contrave Recheck in 2 months. JUAN DIEGO BLANC PA-C 03/24/2018 11:35 AM Signed Please get repeat labs in 1-2 months Referring Provider: PIYUSH SMITH(JUNA DIEGO) [[id number]] Allergies As of Date: 03/24/2018 (No Known Allergies) Date Reviewed: 03/24/2018 Reviewed by: Nay Castañeda Ma - Fully Assessed Reason for Visit: Physical [83] Results [95] Primary Visit Diagnosis:Well adult exam [Z00.00] Other Visit Diagnoses:Moderate intermittent asthma without complication [J45.20] Anxiety [F41.9] Hyperlipidemia, mixed [E78.2] Screening mammogram, encounter for [Z12.31] Obesity (BMI 35.0-39.9 without comorbidity) [E66.9] Order(s):omega 8-mfr-olt-fish oil 250-500-1,000 mg capTake 1 capsule by mouth once daily.Disp: Rfl: albuterol HFA (VENTOLIN HFA) 90 mcg/actuation inhalerInhale 2 Puffs as instructed every 4 hours as needed. Do no substitute with ProAir.Disp: 1 InhalerRfl: 0 fluticasone-salmeterol (ADVAIR DISKUS) 250-50 mcg/dose dsdvInhale 1 Puff as instructed twice daily. Rinse and gargle mouth after use with water.Disp: 3 InhalerRfl: 1 naltrexone-bupropion (CONTRAVE) 8-90 mg TbERTake 1 po qd x1week. Then 1 po BID x1wk. Then 2 po qam and 1 po qpm x1 week. Then 2 po BIDDisp: 120 tabletRfl: 3 hydrOXYzine HCl (ATARAX) 25 mg tabletTake 1 tablet by mouth every 4 hours as needed.Disp: 30 tabletRfl: 0 atorvastatin (LIPITOR) 10 mg tabletTake 1 tablet by mouth daily at bedtime. For cholesterol.Disp: 30 tabletRfl: 3 LIPID PANEL BASIC [SQLIPB] Order #: [id number] FUTURE CONSULT TO [facility] [[id number]] Order #: [id number]: 1 HEPATIC FUNCTION PNL [SQHFP] Order #: [id number] FUTURE ROM SCREENING [[id number]] Order #: [id number] FUTURE Prescriptions as of 03/24/2018 Sig: ALBUTEROL SULFATE HFA 90 MCG/* Inhale 2 Puffs as instructed * FLUTICASONE 250 MCG-SALMETERO* Inhale 1 Puff as instructed t* APREMILAST 30 MG TABLET Take 1 tablet by mouth once d* CULTURELLE PROBIOTICS ORAL Take by mouth. OMEGA 2-VAA-UOJ-FISH OIL 250 * Take 1 capsule by mouth once * NALTREXONE 8 MG-BUPROPION 90 * Take 1 po qd x1week. Then 1 p* HYDROXYZINE HCL 25 MG TABLET Take 1 tablet by mouth every * ATORVASTATIN 10 MG TABLET Take 1 tablet by mouth daily * CPAP Initiate AutoPAP @ 5-15 cm of* Patient not taking: Reported on 10/10/2017 Medication notes this encounter CPAP >> Nay Castañeda Ma 03/24/2018 10:58 AM >> NAY CASTAÑEDA MA Mar 24, 2018 10:58 AM Not using Problem List As Of Date 03/24/2018 Noted Resolved ADVANCED MATERNAL AGE:MULTIPARA[659.63] [O09.52*INVALID FOR*04/19/2007 AMA PRIMIGRAVID-ANTEPARTUM [O09.519] INVALID FOR*11/21/2007 Family history of malignant neoplasm of gastroi* Moderate intermittent asthma without complicati* More... Allergic rhinitis, seasonal [J30.2] Anxiety [F41.9] INVALID FOR* Depression [F32.9] INVALID FOR* Obesity (BMI 35.0-39.9 without comorbidity) [E6*INVALID FOR* Hyperlipidemia, mixed [E78.2] INVALID FOR* LITO (obstructive sleep apnea) [G47.33] INVALID FOR* More... Abnormal mammogram [R92.8] INVALID FOR* Psoriasis [L40.9] INVALID FOR* GERD without esophagitis [K21.9] INVALID FOR* Upper back pain [M54.9] INVALID FOR* Neck pain [M54.2] INVALID FOR* Headache [R51] INVALID FOR* Large breasts [N62] INVALID FOR* Encounter for screening for diabetes mellitus [*INVALID FOR* Functional dyspepsia [K30] INVALID FOR* More... Gastroesophageal reflux disease [K21.9] INVALID FOR* More... Other instructions from your clinician: Please get repeat labs in 1-2 months Prescriptions ordered this encounter Disp Refills Start End OMEGA 3-SOZ-OKM-FISH OIL 250 MG-500 * 03/24/2018 Class: OTC Route: ORAL Sig: Take 1 capsule by mouth once daily. ALBUTEROL SULFATE HFA 90 MCG/ACTUATI* 1 In* 0 03/24/2018 Route: INHALATION Sig: Inhale 2 Puffs as instructed every 4 hours as needed. Do no substitute with ProAir. FLUTICASONE 250 MCG-SALMETEROL 50 MC* 3 In* 1 03/24/2018 Route: INHALATION Sig: Inhale 1 Puff as instructed twice daily. Rinse and gargle mouth after use with water. NALTREXONE 8 MG-BUPROPION 90 MG TABL* 120 * 3 03/24/2018 Sig: Take 1 po qd x1week. Then 1 po BID x1wk. Then 2 po qam and 1 po qpm x1 week. Then 2 po BID HYDROXYZINE HCL 25 MG TABLET 30 t* 0 03/24/2018 Route: ORAL Sig: Take 1 tablet by mouth every 4 hours as needed. ATORVASTATIN 10 MG TABLET 30 t* 3 03/24/2018 Route: ORAL Sig: Take 1 tablet by mouth daily at bedtime. For cholesterol. Medications Discontinued During This Encounter pantoprazole DR (PROTONIX) 40 mg tab* 90 t* 3 09/24/2016 03/24/2018 Sig: take 1 tablet by mouth once daily 1/2 HOUR BEFORE BREAKFAST Disc: Reason for discontinue is not on file. buPROPion SR (ZYBAN SR; WELLBUTRIN S* 60 t* 5 08/11/2017 03/24/2018 Route: ORAL Sig: Take 1 tablet by mouth twice daily. Disc: Reason for discontinue is not on file. Cholecalciferol, Vitamin D3, (VITAMI* 03/24/2018 Class: Historical Med Route: ORAL Sig: Take 1,000 Units by mouth once daily. Disc: Reason for discontinue is not on file. albuterol HFA (VENTOLIN HFA) 90 mcg/* 1 In* 0 10/21/2017 03/24/2018 Route: INHALATION Sig: Inhale 2 Puffs as instructed every 4 hours as needed. Do no substitute with ProAir. Disc: Reason for discontinue is not on file. fluticasone-salmeterol (ADVAIR DISKU* 3 In* 1 03/31/2017 03/24/2018 Route: INHALATION Sig: Inhale 1 Puff as instructed twice daily. Rinse and gargle mouth after use with water. Disc: Reason for discontinue is not on file. Disposition: Return in about 2 months (around 05/22/2018) for recheck. Follow-up and Disposition History Recorded Encounter Status:Closed by PIYUSH LAM on 03/24/18 URINALYSIS WITH Collected: 03/15/2018 Status: F Source: [facility] 7:44 AM [facility] REPOSITORY TYPE CODE TESTS RESULT OUT OF RANGE REFERENCE UNITS LAB UCOL Yellow Color Yellow LAB [facility] Clear Clarity Abnormal Cloudy Alert LAB UGLUC Negative mg/dL Glucose, Urine Negative LAB UBIL Negative Bilirubin, Urine Negative LAB UKET Negative Ketones, Urine Negative LAB USPG 1.005-1.030 Specific Arp, Ur 1.016 LAB UHGB Negative Abnormal Hemoglobin/Blood, 1+ Alert Ur LAB UPH 4.5-8.0 pH 6.0 LAB UPROT Negative mg/dL Protein, Urine Negative LAB UUROB Normal Urobilinogen Normal LAB UNITR Negative Nitrites Negative LAB ULKEST Negative Leukest Abnormal 1+ Alert LAB UCOM Comments SEE COMMENT Result Comment: N/A LAB UMCOM Urine SEE Chiara Comment COMMENT Result Comment: N/A LAB UWBC 0-5 /HPF WBC 0-5 LAB URBC 0-3 /HPF RBC 0-3 LAB UEPI /HPF Epithelial SEE Cells COMMENT Result Comment: Moderate Squamous Epithelial Cells LAB UYEA 0 /HPF Abnormal Alert Yeast Few Result Comment: Budding Yeast Performed By: #### UAWMIC #### [facility] [address] [place], [place] [address] FREE T4 Collected: 03/15/2018 Status: F Source: [place] 7:40 AM [facility] REPOSITORY TYPE CODE TESTS RESULT OUT OF RANGE REFERENCE UNITS LAB FT4 0.9-1.7 ng/dL Free T4 0.9 Performed By: #### FT4, CMP, LIPB, TSH, HBA1C #### [facility] [address] [place], [place] [address] COMP METABOLIC PANEL Collected: 03/15/2018 Status: F Source: [place] 7:40 AM [facility] REPOSITORY TYPE CODE TESTS RESULT OUT OF REFERENCE UNITS RANGE LAB TP 6.3-8.0 g/dL Protein, Total 6.5 LAB ALB 3.9-4.9 g/dL Albumin 4.2 LAB CA 8.5-10.2 mg/dL Calcium, Total 9.0 LAB TBIL 0.2-1.3 mg/dL Bilirubin, Total 0.3 LAB ALKP 34-123 U/L Alkaline Phosphatase 65 LAB AST 13-35 U/L AST 16 LAB GLU 74-99 mg/dL Glucose 86 Result Comment: The [place] Diabetes Association (ADA) provides guidance for cutoff values for fasting glucose and random glucose. The ADA defines fasting as no caloric intake for at least 8 hours. Fas ting plasma glucose results between 100 to 125 mg/dL indicate increased risk for diabetes (prediabetes). Fasting plasma glucose results greater than or equal to 126 mg/dL meet the criteria for diagnosis of diabetes. In the absence of unequivocal hyperglycemia, results should be confirmed by repeat testing. In a patient with classic symptoms of hyperglycemia or hyperglycemic crisis, random plasma glucose results greater than or equal to 200 mg/dL meet the criteria for diagnosis of diabetes. Reference: Standards of Medical Care in Diabetes 2016, [place] Diabetes Association. Diabetes Care. 2016.39(Suppl 1). LAB BUN 7-21 mg/dL BUN 13 LAB CRET 0.58-0.96 mg/dL Creatinine 0.73 LAB NA 136-144 mmol/L Sodium 139 LAB K 3.7-5.1 mmol/L Potassium 4.0 LAB CL 97-105 mmol/L Chloride 105 LAB CO2 22-30 mmol/L CO2 23 LAB AGAP 9-18 mmol/L Anion Gap 11 LAB ALT 7-38 U/L ALT 14 LAB GFRAA eGFR- Amer. >60 LAB GFRNAA . eGFR-All Other Races >60 Result Comment: eGFR (Estimated GFR) Units of measure: mL/min/1.73 meters squared eGFR is derived from the reexpressed MDRD Study equation using the following parameters: serum creatinine, age, gender and race. The creatinine assay has been calibrated to be traceable to IDMS. An eGFR <60 mL/min/1.73m2 for >3 months is consistent with chronic kidney disease. Refer to KDOQI guidelines for clinical interpretation. In patients with unstable renal function, e.g. those with acute kidney injury, the eGFR may not accurately reflect actual GFR. Performed By: #### FT4, CMP, LIPB, TSH, HBA1C #### [facility] [address] [address] LIPID PANEL, BASIC Collected: 03/15/2018 Status: F Source: [place] 7:40 AM [facility] REPOS[facility] TYPE CODE TESTS RESULT OUT OF REFERENCE UNITS RANGE LAB CHOL <200 mg/dL Cholesterol High 231 Result Comment: <200 mg/dL, Desirable 200-239 mg/dL, Borderline high >239 mg/dL, High LAB TRIGLY <150 mg/dL Triglyceride 130 Result Comment: <150 mg/dL, Normal 150-199 mg/dL, Borderline high 200-499 mg/dL, High >499 mg/dL, Very high LAB HDL >39 mg/dL HDL-Cholesterol 43 Result Comment: 40-59 mg/dL, Acceptable >59 mg/dL, High: Negative risk factor for coronary heart disease <40 mg/dL, Low: Positive risk factor for coronary heart disease LAB LDL <100 mg/dL LDL-Cholesterol High 162 Result Comment: <100 mg/dL, Optimal 100-129 mg/dL, Near optimal/above optimal 130-159 mg/dL, Borderline high 160-189 mg/dL, High >189 mg/dL, Very high Secondary prevention optimal LDL Cholesterol levels are recommended to be < 70 mg/dL LAB NONHDL <130 mg/dL Non HDL High Cholesterol 188 Result Comment: <130 mg/dL, Optimal 130-159 mg/dL, Near optimal/above optimal 160-189 mg/dL, Borderline high 190-219 mg/dL, High >219 mg/dL, Very high Secondary prevention optimal non HDL Cholesterol levels are recommended to be < 100 mg/dL LAB FT hrs Fasting Time 12 LAB VLDL <30 mg/dL VLDL Cholesterol 26 LAB TCHDL <5.10 High TC:HDL Ratio 5.37 LAB LDLHDL <2.54 High LDL:HDL Ratio 3.77 Result Comment: Reference: 1. National Cholesterol Education Program ATP III Guideline At-A-Glance Quick Desk Reference: National Heart, Lung, and Blood [place]. National Institutes of Health. 2001: NIH Publication No. 01-3305. 2. An International Atherosclerosis Society position paper: global recommendations for the management of dyslipidemia: executive summary, Atherosclerosis. 2014: 232(2):410-413. Performed By: #### FT4, CMP, LIPB, TSH, HBA1C #### [facility] [address] [place] [id number] TSH Collected: 03/15/2018 Status: F Source: [place] 7:40 AM [facility] REPOSITORY TYPE CODE TESTS RESULT OUT OF RANGE REFERENCE UNITS LAB TSH 0.400-5.500 uU/mL TSH 4.470 Result Comment: If the patient is , TSH reference range varies by gestational period: First Trimester 0.100-2.500 uU/mL Second Trimester 0.200-3.000 uU/mL Third Trimester 0.300-3.000 uU/mL References: 1. Ortiz L, Melinda M, Kwasi EK, et al. Management of Thyroid Dysfunction during and : An Endocrine Society Clinical Practice Guideline. J Clin Endocrinol Metab, 2012:97:6330-5182. 2. Doug PEREZ. Overview of thyroid disease in . UpToDate. 2016. Accessed on August 29, 2015. Performed By: #### FT4, CMP, LIPB, TSH, HBA1C #### [facility] [address] [place], [place] [address] HEMOGLOBIN A1C Collected: 03/15/2018 Status: F Source: [place] 7:40 AM [facility] REPOSITORY TYPE CODE TESTS RESULT OUT OF REFERENCE UNITS RANGE LAB HGBA1C 4.3-5.6 % Hemoglobin A1c 4.8 Result Comment: [place] Diabetes Association guidelines indicate that patients with HgbA1c in the range 5.7-6.4% are at increased risk for development of diabetes, and intervention by lifestyle modification may be beneficial. HgbA1c greater or equal to 6.5% is considered diagnostic of diabetes. LAB HBA0 mg/dL Est. Average Glucose 91 Result Comment: eAG: (Estimated average glucose) is a calculated value from HgbA1c and is business services sales representative of the average blood glucose level in the last 2-3 month period. Performed By: #### FT4, CMP, LIPB, TSH, HBA1C #### [facility] [address] [place], [place] [address] OFFICE VISIT REPORT Observed: 11/01/2017 Status: F Source: [place] 5:44 PM [facility] REPOSITORY [facility] [place] [address] OFFICE VISIT Date of Service: 11/01/17 MR#: [id number] Acct: [id number] Patient: CHIKA GOOD Rep #: [id number] : 1970 Provider: Keyonna Lainez MD Age/Sex: 47/F [place] [facility] [place] Signed Intake Vital Signs11/01/17 Height 5 ft 3 in 11/01/17 Weight: 205 lb 4 oz 11/01/17 Body Mass Index (BMI) 36.3 11/01/17 Blood Pressure 98/70 Intake Visit Reasons: Weight check/ Adipex refill Chief Complaint: 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 annual Associate 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 Required: No Allergies No Known Allergies Allergy (Verified 11/01/17 09:15) Medications albuterol sulfate HFA 90 mcg/actuation aerosol inhaler 1 puff INHALATION Q6H 06/28/17 [History Confirmed 11/01/17] apremilast 30 mg tablet 30 mg PO BID 06/28/17 [History Confirmed 11/01/17] bupropion HCl SR 150 mg tablet,12 hr sustained-release 150 mg PO BID 06/28/17 [History Confirmed 11/01/17] fluticasone 250 mcg-salmeterol 50 mcg/dose blistr powdr for inhalation 1 inh INHALATION ONCE 06/28/17 [History Confirmed 11/01/17] pantoprazole 40 mg tablet,delayed release 40 mg PO QDAY 06/28/17 [History Confirmed 11/01/17] phentermine 37.5 mg tablet 37.5 mg PO QDAY #30 tab 11/01/17 [Rx Confirmed 11/01/17] Post menopausal: No Patient : No Assessment AND Plan Medications Refilled: 11/01/17 1744 <Electronically signed by Keyonna Lainez MD> Date Keyonna Lainez MD Cosigner Signature: Date (if applicable) CC: PROGRESS Observed: 10/10/2017 Status: COMPLETED Source: [place] 4:49 PM [facility] RE[facility]ITORY O ID: [id number] Author: China Wells Service: (none) Author Type: Nurse Practitioner Type: Progress Notes Filed: 10/10/2017 5:08 PM Note Text: Subjective HPI Pt presents with c/o urinary frequency/urgency and suprapubic pressure x 2 days. Denies fever, chills, back/flank pain. Has been pushing fluids. Review of Systems Constitutional: Negative for chills and fever. Gastrointestinal: Negative for abdominal pain, constipation, diarrhea, nausea and vomiting. Genitourinary: Positive for frequency and urgency. Negative for dysuria, flank pain and hematuria. Musculoskeletal: Negative for back pain and myalgias. Objective Physical Exam Constitutional: She is oriented to person, place, and time and well-developed, well-nourished, and in no distress. No distress. Abdominal: There is no CVA tenderness. Neurological: She is alert and oriented to person, place, and time. Skin: Skin is warm and dry. She is not diaphoretic. BP 108/62 Pulse 82 Temp 36.3 ?C (97.4 ?F) Resp 16 Wt 93.9 kg (207 lb) BMI 36.67 kg/m? .No chief complaint on file. PAST MEDICAL HISTORY Diagnosis Date - Abnormal glandular Papanicolaou smear of cervix Abn. Pap smear (cervix) - Acute gastritis without mention of hemorrhage - Allergic rhinitis, seasonal - Anxiety 07/07/2012 - Depression 07/07/2012 - Dysphagia, unspecified(787.20) - Esophageal stenosis - GERD without esophagitis 12/10/2015 - Hyperlipidemia, mixed 11/01/2014 - Migraine, unspecified, with intractable migraine, so stated, without mention of status migrainosus Migraine - Moderate intermittent asthma without complication seasonal - Obesity (BMI 35.0-39.9 without comorbidity) 06/06/2013 - LITO (obstructive sleep apnea) 01/22/2015 Has a CPAP - Other constipation - Unspecified asthma(493.90) seasonal PAST SURGICAL HISTORY Procedure Laterality Date - BREAST BIOPSY W/ULTRASOUND GUIDANCE Left 05/03/15 U/S Needle core upper mid left breast - BREAST REDUCTION 09/2016 - CERVIX UTERI CONIZA LP ELCTRO EXCI 1994 LEEP-Cervix - DELIVERY ONLY 11/19 WC - COLONOSCOP W/ OR W/O [facility] SPEC 2003 Colonoscopy - COLONOSCOP W/ OR W/O [facility] SPEC 08/21/2008 Colonoscopy - COLONOSCOP W/ OR W/O [facility] SPEC 11-3-15 - EGD 1991 REMOVAL OF FOREIGN BODY - EGD W/O [facility] SPECIMEN W/BX 06/12/08 - EGD W/O OR W/BRUSH/WASH 05/16/2017 EGD - ESOPH W/O [facility] SPEC BALLOON DIL 06/12/08 - REMOVAL ADENOIDS,PRIMARY,<12 Y/O Adenoidectomy - REMOVAL OF TONSILS,<12 Y/O Tonsillectomy - SEPTOPLASTY 08/29/2017 Dr. Manny Sexton-nasal airway obstruction. deviated septum, inferior turbinate hypertrophy ALLERGIES Patient has no known allergies. MEDICATIONS buPROPion SR (ZYBAN SR; WELLBUTRIN SR) 150 mg 12 hr tablet Take 1 tablet by mouth twice daily. fluticasone-salmeterol (ADVAIR DISKUS) 250-50 mcg/dose dsdv Inhale 1 Puff as instructed twice daily. Rinse and gargle mouth after use with water. apremilast (OTEZLA) 30 mg tablet Take 1 tablet by mouth once daily. Per derm pantoprazole DR (PROTONIX) 40 mg tablet take 1 tablet by mouth once daily 1/2 HOUR BEFORE BREAKFAST albuterol HFA (VENTOLIN HFA) 90 mcg/actuation inhaler Inhale 2 Puffs as instructed every 4 hours as needed. Do no substitute with ProAir. Cholecalciferol, Vitamin D3, (VITAMIN D) 1,000 unit tab Take 1,000 Units by mouth once daily. L. RHAMNOSUS GG/INULIN (CULTURELLE PROBIOTICS ORAL) Take by mouth. nitrofurantoin monohydrate and macrocrystal (MACROBID) 100 mg capsule Take 1 capsule by mouth twice daily with meals for 7 days. phenazopyridine (PYRIDIUM) 100 mg tablet Take 1 tablet by mouth three times daily as needed for up to 2 days. CPAP Initiate AutoPAP @ 5-15 cm of water with humidification. Mask (per patient preference) optional chin strap (if indicated), filters, tubing / heated tubing, heated humidity and lifetime supplies. Dx. LITO G47.33 327.23 FAMILY HISTORY Problem Relation Age of Onset - Asthma Mother - Hypertension Father - Colon Cancer Father Colon polyps - Colon Cancer Maternal Grandfather - Colon Cancer Paternal Grandfather - Blood Disease Sister - Asthma Brother Social History Substance Use Topics - Smoking status: Former Smoker Years: 15.00 Types: Cigarettes Quit date: 07/12/2006 - Smokeless tobacco: Never Used Comment: SOCIAL SMOKER IN PAST - Alcohol use Yes Comment: rare,NOT WHILE ASSESSMENT/PLAN: 1. Urinary urgency - ICD9: 788.63, ICD10: R39.15 (primary diagnosis) - UA DIP B/O - trace leukocytes. - URINE CULTURE - NITROFURANTOIN MONOHYDRATE AND MACROCRYSTAL 100 MG ORAL CAP 2. Suprapubic pressure - ICD9: 789.09, ICD10: R10.2 - PHENAZOPYRIDINE 100 MG TABLET The patient is instructed to return or seek emergency treatment if symptoms become worse or with any acute change in condition. The patient verbalizes understanding and is in agreement with plan of care. China Wells CNP Observed: 10/10/2017 Status: F Source: [place] URINE CULTURE 4:35 PM [facility] REPOSITORY Sp. Request/Comment: - Specimen received in preservative Culture Result - <10,000 CFU/ml Lactose positive gram negative bacilli --> ABNORMAL ALERT Insignificant colony count. No further workup. --> ABNORMAL ALERT Performed By: #### URCUL #### [facility] [address] [place] [address] KEKE Observed: 10/10/2017 Status: COMPLETED Source: [place] 4:15 PM [facility] REPOSITORY Office Visit (WSTR) CHIKA GOOD ([id number]) 1970 F CHT Date Time Provider Department 10/10/17 4:15 PM CHINA WELLS DANIELLE During your visit today, we recorded the following information about you: Temperature Pulse Respiration Blood pressure 97.4 degrees 82/minute 16/minute 108/62 Weight 93.9 kg China Wells APRN.CNP 10/10/2017 5:08 PM Signed Subjective HPI Pt presents with c/o urinary frequency/urgency and suprapubic pressure x 2 days. Denies fever, chills, back/flank pain. Has been pushing fluids. Review of Systems Constitutional: Negative for chills and fever. Gastrointestinal: Negative for abdominal pain, constipation, diarrhea, nausea and vomiting. Genitourinary: Positive for frequency and urgency. Negative for dysuria, flank pain and hematuria. Musculoskeletal: Negative for back pain and myalgias. Objective Physical Exam Constitutional: She is oriented to person, place, and time and well-developed, well-nourished, and in no distress. No distress. Abdominal: There is no CVA tenderness. Neurological: She is alert and oriented to person, place, and time. Skin: Skin is warm and dry. She is not diaphoretic. BP 108/62 Pulse 82 Temp 36.3 ?C (97.4 ?F) Resp 16 Wt 93.9 kg (207 lb) BMI 36.67 kg/m? .No chief complaint on file. PAST MEDICAL HISTORY Diagnosis Date - Abnormal glandular Papanicolaou smear of cervix Abn. Pap smear (cervix) - Acute gastritis without mention of hemorrhage - Allergic rhinitis, seasonal - Anxiety 07/07/2012 - Depression 07/07/2012 - Dysphagia, unspecified(787.20) - Esophageal stenosis - GERD without esophagitis 12/10/2015 - Hyperlipidemia, mixed 11/01/2014 - Migraine, unspecified, with intractable migraine, so stated, without mention of status migrainosus Migraine - Moderate intermittent asthma without complication seasonal - Obesity (BMI 35.0-39.9 without comorbidity) 06/06/2013 - LITO (obstructive sleep apnea) 01/22/2015 Has a CPAP - Other constipation - Unspecified asthma(493.90) seasonal PAST SURGICAL HISTORY Procedure Laterality Date - BREAST BIOPSY W/ULTRASOUND GUIDANCE Left 05/03/15 U/S Needle core upper mid left breast - BREAST REDUCTION 09/2016 - CERVIX UTERI CONIZA LP ELCTRO EXCI 1994 LEEP-Cervix - DELIVERY ONLY 11/19 [facility] - COLONOSCOP W/ OR W/O [facility] SPEC 2003 Colonoscopy - COLONOSCOP W/ OR W/O [facility] SPEC 08/21/2008 Colonoscopy - COLONOSCOP W/ OR W/O [facility] SPEC 01-14-15 - EGD 1991 REMOVAL OF FOREIGN BODY - EGD W/O [facility] SPECIMEN W/BX 06/12/08 - EGD W/O OR W/BRUSH/WASH 05/16/2017 EGD - ESOPH W/O [facility] SPEC BALLOON DIL 06/12/08 - REMOVAL ADENOIDS,PRIMARY,<12 Y/O Adenoidectomy - REMOVAL OF TONSILS,<12 Y/O Tonsillectomy - SEPTOPLASTY 08/29/2017 Dr. Manny Sexton-nasal airway obstruction. deviated septum, inferior turbinate hypertrophy ALLERGIES Patient has no known allergies. MEDICATIONS buPROPion SR (ZYBAN SR; WELLBUTRIN SR) 150 mg 12 hr tablet Take 1 tablet by mouth twice daily. fluticasone-salmeterol (ADVAIR DISKUS) 250-50 mcg/dose dsdv Inhale 1 Puff as instructed twice daily. Rinse and gargle mouth after use with water. apremilast (OTEZLA) 30 mg tablet Take 1 tablet by mouth once daily. Per derm pantoprazole DR (PROTONIX) 40 mg tablet take 1 tablet by mouth once daily 1/2 HOUR BEFORE BREAKFAST albuterol HFA (VENTOLIN HFA) 90 mcg/actuation inhaler Inhale 2 Puffs as instructed every 4 hours as needed. Do no substitute with ProAir. Cholecalciferol, Vitamin D3, (VITAMIN D) 1,000 unit tab Take 1,000 Units by mouth once daily. L. RHAMNOSUS GG/INULIN (CULTURELLE PROBIOTICS ORAL) Take by mouth. nitrofurantoin monohydrate and macrocrystal (MACROBID) 100 mg capsule Take 1 capsule by mouth twice daily with meals for 7 days. phenazopyridine (PYRIDIUM) 100 mg tablet Take 1 tablet by mouth three times daily as needed for up to 2 days. CPAP Initiate AutoPAP @ 5-15 cm of water with humidification. Mask (per patient preference) optional chin strap (if indicated), filters, tubing / heated tubing, heated humidity and lifetime supplies. Dx. LITO G47.33 327.23 FAMILY HISTORY Problem Relation Age of Onset - Asthma Mother - Hypertension Father - Colon Cancer Father Colon polyps - Colon Cancer Maternal Grandfather - Colon Cancer Paternal Grandfather - Blood Disease Sister - Asthma Brother Social History Substance Use Topics - Smoking status: Former Smoker Years: 15.00 Types: Cigarettes Quit date: 07/12/2006 - Smokeless tobacco: Never Used Comment: SOCIAL SMOKER IN PAST - Alcohol use Yes Comment: rare,NOT WHILE ASSESSMENT/PLAN: 1. Urinary urgency - ICD9: 788.63, ICD10: R39.15 (primary diagnosis) - UA DIP B/O - trace leukocytes. - URINE CULTURE - NITROFURANTOIN MONOHYDRATE AND MACROCRYSTAL 100 MG ORAL CAP 2. Suprapubic pressure - ICD9: 789.09, ICD10: R10.2 - PHENAZOPYRIDINE 100 MG TABLET The patient is instructed to return or seek emergency treatment if symptoms become worse or with any acute change in condition. The patient verbalizes understanding and is in agreement with plan of care. China Wells CNP Referring Provider: SELF [[id number]] Allergies As of Date: 10/10/2017 (No Known Allergies) Date Reviewed: 10/10/2017 Reviewed by: Nyasia Vázquez LPN - Fully Assessed Primary Visit Diagnosis:Urinary urgency [R39.15] Other Visit Diagnosis:Suprapubic pressure [R10.2] Order(s):UA DIP B/O [1622550] Order #: [id number] URINE CULTURE [SQURCUL] Order #: [id number] nitrofurantoin monohydrate and macrocrystal (MACROBID) 100 mg capsuleTake 1 capsule by mouth twice daily with meals for 7 days.Disp: 14 capsuleRfl: 0 phenazopyridine (PYRIDIUM) 100 mg tabletTake 1 tablet by mouth three times daily as needed for up to 2 days.Disp: 6 tabletRfl: 0 Prescriptions as of 10/10/2017 Sig: BUPROPION HCL SR 150 MG TABLE* Take 1 tablet by mouth twice * FLUTICASONE 250 MCG-SALMETERO* Inhale 1 Puff as instructed t* APREMILAST 30 MG TABLET Take 1 tablet by mouth once d* PANTOPRAZOLE 40 MG TABLET,DEL* take 1 tablet by mouth once d* ALBUTEROL SULFATE HFA 90 MCG/* Inhale 2 Puffs as instructed * CHOLECALCIFEROL (VITAMIN D3) * Take 1,000 Units by mouth onc* CULTURELLE PROBIOTICS ORAL Take by mouth. NITROFURANTOIN MONOHYDRATE AND * Take 1 capsule by mouth twice* PHENAZOPYRIDINE 100 MG TABLET Take 1 tablet by mouth three * CPAP Initiate AutoPAP @ 5-15 cm of* Patient not taking: Reported on 10/10/2017 Problem List As Of Date 10/10/2017 Noted Resolved ADVANCED MATERNAL AGE:MULTIPARA[659.63] [O09.52*INVALID FOR*04/19/2007 AMA PRIMIGRAVID-ANTEPARTUM [O09.519] INVALID FOR*11/21/2007 Family history of malignant neoplasm of gastroi* Priority: F Moderate intermittent asthma without complicati* Priority: A More... Allergic rhinitis, seasonal [J30.2] Priority: B Anxiety [F41.9] INVALID FOR* Priority: A Depression [F32.9] INVALID FOR* Priority: A Obesity (BMI 35.0-39.9 without comorbidity) [E6*INVALID FOR* Priority: B Hyperlipidemia, mixed [E78.2] INVALID FOR* Priority: A LITO (obstructive sleep apnea) [G47.33] INVALID FOR* Priority: B More... Abnormal mammogram [R92.8] INVALID FOR* Priority: C Psoriasis [L40.9] INVALID FOR* Priority: D GERD without esophagitis [K21.9] INVALID FOR* Priority: A Upper back pain [M54.9] INVALID FOR* Neck pain [M54.2] INVALID FOR* Headache [R51] INVALID FOR* Large breasts [N62] INVALID FOR* Encounter for screening for diabetes mellitus [*INVALID FOR* Functional dyspepsia [K30] INVALID FOR* More... Gastroesophageal reflux disease [K21.9] INVALID FOR* More... Prescriptions ordered this encounter Disp Refills Start End NITROFURANTOIN MONOHYDRATE AND MACROCR* 14 c* 0 10/10/2017 10/17/2017 Route: ORAL Sig: Take 1 capsule by mouth twice daily with meals for 7 days. PHENAZOPYRIDINE 100 MG TABLET 6 ta* 0 10/10/2017 10/12/2017 Route: ORAL Sig: Take 1 tablet by mouth three times daily as needed for up to 2 days. Encounter Status:Closed by CHINA WELLS CNP on 10/10/17 12 LEAD ELECTROCARDIOGRAM Observed: 09/01/2017 Status: F Source: [place] 11:18 AM [facility] REPOSITORY [facility] Cardiovascular Services [address] [place] [address] [place] [address] 12 Lead EKG 08/29/17 0716 MR#: [id number] Acct: [id number] Name: CHIKA GOOD Rep #: [id number] : 1970 46 From: Zack Prince MD Attending Dr: Manny Sexton MD Status: [facility] Ordering Dr: Braulio Williamson MD Date: 08/29/17 [place] [facility] [place] F C Admitted: Test Reason : PREOP Blood Pressure : / mmHG Vent. Rate : 069 BPM Atrial Rate : 069 BPM P-R Int : 174 ms QRS Dur : 086 ms QT Int : 410 ms P-R-T Axes : 047 038 018 degrees QTc Int : 439 ms Normal sinus rhythm Low voltage QRS Borderline ECG No previous ECGs available Confirmed by ZACK PRINCE MD ([id number]), newspaper editor managing GEORGI CHENG ([id number]) on 09/01/2017 11:18:08 AM Referred By: Manny Sexton Confirmed By:ZACK PRINCE MD 09/01/17 1118 Date Zack Prince MD CC: Braulio Williamson MD; Clark Javed MD; Manny Sexton MD Signed OPERATIVE REPORT Observed: 08/29/2017 Status: F Source: [place] 9:23 AM [facility] Medical Records Department [address] [place] [id number] Operative Report 08/29/17 0911 MR#: [id number] Acct: [id number] Name: CHIKA GOOD Rep #: [id number] : 1970 46 From: Manny Sexton MD PCP: Clark Javed MD Status: [facility] Location: [place] [address] Report of Operation Date of Procedure: 08/29/17 Pre-Operative Diagnosis: nasal airway obstruction. deviated septum. Inferior turbinate hypertrophy Post-Operative Diagnosis: same Surgery/Procedure Performed:: Septoplasty. Submucous resection inferior turbinates Type of Anesthesia:: General Anesthesiologist: Braulio Williamson Specimen's removed: septum,turbinate contents Estimated Blood Loss (mL): minimal Description of Procedure: The patient was taken to the operating room on 08/29/17. She was placed in the supine position on the OR cart. She was given sufficient general anesthesia. The head of bed was then elevated 30 degrees. She was draped steriley. 1% lidocaine with epinephrine (1:087630) was injected into the septum, collumela, anterior aspect of the inferior turbinates, nasal floor. After sufficient vasoconstriction, a hemitransfixtion incision was made on the right with a 15 blade. This was carried down to the septum sharply. I established a plane on the left quadrangular cartilage. The mucoperichondrium was elevated using a freer elevator on the left. Anterior and posterior tunnels were created. The frida cartilage junction was and the mucoperichondrium was elevated off on the right. The deviated portions of the frida septum were taken out using open terell madera forceps. A large spur was removed on the right. The posterior portion of the quadrangular cartilage was removed with D knife. The cartilage was taken off of the maxillary crest. The crest was deviated to the left and this was removed with a hammer and chisel. Hemostasis was achieved with suction cautery, afrin and floseal. Next, an incision was placed at the anterior aspect of the right inferior turbinate with a 15 blade at the mucocutaneous junction. A submucous plane was established using a Sebastien elevator. Submucous resection was carried out using a Shaver. The incision was then closed with 4-0 chromic. Next, an incision was placed at the anterior aspect of the left inferior turbinate with a 15 blade at the mucocutaneous junction. A submucous plane was established using a Lane elevator. Submucous resection was carried out using a Shaver. The incision was then closed with 4-0 chromic. The hemitransfixtion incision was then closed with interrupted 4-0 chromic. Bright nasal splints were applied to each side of the septum and sewn through and through with 3-0 silk. The patient was then awoken and brought to the recovery room in stable condition. Blood loss minimal, replacement none. Sponge, needle and instrument count were correct at the end of the procedure. 08/29/17 0923 <Electronically signed by Manny Sexton MD> Date Manny Sexton MD CC: Clark Javed MD; Manny Sexton MD Signed DISCHARGE INSTRUCTION Observed: 08/29/2017 Status: F Source: [place] 8:02 AM [facility] REPOSITORY [facility] Medical Records Department [address] [place] [address] Instructions for Home/Discharge Instructions 08/29/17 0759 MR#: [id number] Acct: [id number] Name: CHIKA GOOD Rep #: [id number] : 1970 46 From: Manny Sexton MD PCP: Clark Javed MD [place] [facility] [place] You will use the following diet at home:: Regular Discharge Activity: Return to Normal Activity, - - NO nose blowing Additional Activity Instructions:: Start saline nasal spray on 08/30/17...3 sprays each nostril three times a day. Allergies/Adverse Reactions: Allergies No Known Allergies Allergy (Unverified 06/28/17 09:59) Medications to take at Discharge albuterol sulfate HFA 90 mcg/actuation aerosol inhaler 1 puff INHALATION Q6H 06/28/17 apremilast 30 mg tablet 30 mg PO BID 06/28/17 bupropion HCl SR 150 mg tablet,12 hr sustained-release 150 mg PO BID 06/28/17 fluticasone 250 mcg-salmeterol 50 mcg/dose blistr powdr for inhalation 1 inh INHALATION ONCE 06/28/17 pantoprazole 40 mg tablet,delayed release 40 mg PO QDAY 06/28/17 Primary Care Physician: Clark Javed MD [Primary Care Provider] - 08/29/17 0802 <Electronically signed by Manny Sexton MD> Date Manny Sexton MD CC: Clark Javed MD ,URINE Collected: 08/29/2017 Status: F Source: [place] 6:45 AM [facility] REPOSITORY TYPE CODE TESTS RESULT OUT OF REFERENCE UNITS RANGE LAB L400.8000 Negative Normal HCGUQUAL Negative Result Comment: Very dilute urine specimens, as indicated by a low specific gravity, may not contain business services sales representative levels of hCG. If is still suspected, a first morning urine specimen should be collected 48 hours later and tested. Performed By: #### [id number] #### [facility] [address] [place], [place], [address] SEPTUM Observed: 08/29/2017 Status: F Source: [place] 12:00 AM [facility] REPOSITORY Patient: CHIKA GOOD : 1970 (46/F) Acct Num: [id number] Phys: Carlie DOOLEY,Manny Unit Num: [id number] [place] [facility] [place] Specimen: [id number] Received: 08/29/17 1455 Spec Type: SEPTUM TISSUES TISSUES: Nasal septum, NOS GROSS DESCRIPTION Received in fixative is one container labeled with the patient's name and designated nasal septum inferior turbinate tissue. The specimen consists of multiple fragments of cartilage and bone mixed with blood clot that in aggregate measure 5 x 3 x 0.3 cm. The entire specimen is submitted in two cassettes after decalcification. / SJ:artemio 08/29/17 TC:5 CPT: 68335, 29712 HEADER OPERATION: Septoplasty, submucous resection inferior turbinates PRE-OP DIAGNOSIS: Nasal congestion, deviated nasal septum, hypertrophy of nasal turbinates TISSUE SUBMITTED: Inferior turbinate tissue, nasal septum MICROSCOPIC DESCRIPTION Slides are reviewed. MICROSCOPIC DIAGNOSIS Inferior turbinate tissue and nasal septum: Fragments of bone and cartilage and benign respiratory mucosa, clinically deviated nasal septum and hypertrophy of nasal turbinates. SJ:artemio 09/01/17 Signed Mark Cabral 09/01/17 <signature on file> Performed By: #### PSEP #### [facility] [address] [place], [address] Observed: 08/28/2017 Status: F Source: [place] URINE CULTURE 1:00 PM [facility] REPOSITORY Sp. Request/Comment: - Specimen received in preservative Culture Result - 10,000 - <50,000 CFU/ml Escherichia coli --> ABNORMAL ALERT ORGANISM: Escherichia coli METHOD: Minimum inhibitory concentration(Vitek) Antibiotic Interp CHIARA Status Ampicillin RESISTANT >=32 F Gentamicin SUSCEPTIBLE <=1 F Trimeth sulfameth RESISTANT >=320 F Cefazolin SUSCEPTIBLE 8 F CLSI breakpoints for therapy of uncomplicated UTI's due to E.coli, K.pneumoniae, and P.mirabilis were applied and may be used to predict the activity of oral agents(cefaclor, cefdinir, cefpodoxime, cefp rozil, cefuroxime, cephalexin, loracarbef). Ciprofloxacin SUSCEPTIBLE <=0.25 F Nitrofurantoin SUSCEPTIBLE 32 F Cefepime SUSCEPTIBLE <=1 F Piperacillin/Tazobac RESISTANT >=128 F Ampicillin Sulbact RESISTANT >=32 F Ceftriaxone SUSCEPTIBLE <=1 F Meropenem SUSCEPTIBLE <=0.25 F Ertapenem SUSCEPTIBLE <=0.5 F Performed By: #### URCUL #### [facility] [address] [place], [place] [address] PROGRESS Observed: 08/28/2017 Status: COMPLETED Source: [place] 10:05 AM [facility] [place] REPOSITORY HNO ID: [id number] Author: Enio Lea (Pa) Service: (none) Author Type: Physician Paste Maker Type: Progress Notes Filed: 08/28/2017 10:43 AM Note Text: Subjective HPI Pt presents with urinary urgency and dysuria for 3 days. She was on bactrim for 5 days, the last dose being 4 days ago. She had been seen at [facility] for that out of state. She doesn't know if they cultured her urine. She also has developed a yeast infection from the bactrim. She typically gets a yeast infection from antibiotics. She denies flank or back pain. No hx of kidney stones. She hasn't noticed blood in her urine No fevers or chills. No nv. She is not on her menstrual cycle. Review of Systems Gastrointestinal: Negative. Genitourinary: Positive for dysuria and urgency. Negative for flank pain, frequency and hematuria. Musculoskeletal: Negative. All other systems reviewed and are negative. PAST MEDICAL HISTORY Diagnosis Date - Abnormal glandular Papanicolaou smear of cervix Abn. Pap smear (cervix) - Acute gastritis without mention of hemorrhage - Allergic rhinitis, seasonal - Anxiety 07/07/2012 - Depression 07/07/2012 - Dysphagia, unspecified(787.20) - Esophageal stenosis - GERD without esophagitis 12/10/2015 - Hyperlipidemia, mixed 11/01/2014 - Migraine, unspecified, with intractable migraine, so stated, without mention of status migrainosus Migraine - Moderate intermittent asthma without complication seasonal - Obesity (BMI 35.0-39.9 without comorbidity) 06/06/2013 - LITO (obstructive sleep apnea) 01/22/2015 Has a CPAP - Other constipation - Unspecified asthma(493.90) seasonal Current Outpatient Prescriptions: buPROPion SR (ZYBAN SR; WELLBUTRIN SR) 150 mg 12 hr tablet Take 1 tablet by mouth twice daily. Disp: 60 tablet Rfl: 5 fluticasone-salmeterol (ADVAIR DISKUS) 250-50 mcg/dose dsdv Inhale 1 Puff as instructed twice daily. Rinse and gargle mouth after use with water. Disp: 3 Inhaler Rfl: 1 apremilast (OTEZLA) 30 mg tablet Take 1 tablet by mouth once daily. Per derm Disp: Rfl: pantoprazole DR (PROTONIX) 40 mg tablet take 1 tablet by mouth once daily 1/2 HOUR BEFORE BREAKFAST Disp: 90 tablet Rfl: 3 albuterol HFA (VENTOLIN HFA) 90 mcg/actuation inhaler Inhale 2 Puffs as instructed every 4 hours as needed. Do no substitute with ProAir. Disp: 1 Inhaler Rfl: 5 CPAP Initiate AutoPAP @ 5-15 cm of water with humidification. Mask (per patient preference) optional chin strap (if indicated), filters, tubing / heated tubing, heated humidity and lifetime supplies. Dx. LITO G47.33 327.23 Disp: 1 Device Rfl: 0 Cholecalciferol, Vitamin D3, (VITAMIN D) 1,000 unit tab Take 1,000 Units by mouth once daily. Disp: Rfl: L. RHAMNOSUS GG/INULIN (CULTURELLE PROBIOTICS ORAL) Take by mouth. Disp: Rfl: fluconazole (DIFLUCAN) 150 mg tablet Take 1 tablet by mouth one time only for 1 dose. Disp: 1 tablet Rfl: 0 No current facility-administered medications for this visit. PAST SURGICAL HISTORY Procedure Laterality Date - BREAST BIOPSY W/ULTRASOUND GUIDANCE Left 05/03/15 U/S Needle core upper mid left breast - BREAST REDUCTION 09/2016 - CERVIX UTERI CONIZA LP ELCTRO EXCI 1993 LEEP-Cervix - DELIVERY ONLY 11/19 [facility] - COLONOSCOP W/ OR W/O [facility] SPEC 2003 Colonoscopy - COLONOSCOP W/ OR W/O [facility] SPEC 08/21/2008 Colonoscopy - COLONOSCOP W/ OR W/O [facility] SPEC 11--15 - EGD 1991 REMOVAL OF FOREIGN BODY - EGD W/O [facility] SPECIMEN W/BX 06/12/08 - EGD W/O OR W/BRUSH/WASH 05/16/2017 EGD - ESOPH W/O [facility] SPEC BALLOON DIL 06/12/08 - REMOVAL ADENOIDS,PRIMARY,<12 Y/O Adenoidectomy - REMOVAL OF TONSILS,<12 Y/O Tonsillectomy FAMILY HISTORY Problem Relation Age of Onset - Asthma Mother - Hypertension Father - Colon Cancer Father Colon polyps - Colon Cancer Maternal Grandfather - Colon Cancer Paternal Grandfather - Blood Disease Sister - Asthma Brother Social History Substance Use Topics - Smoking status: Former Smoker Years: 15.00 Types: Cigarettes Quit date: 07/12/2006 - Smokeless tobacco: Never Used Comment: SOCIAL SMOKER IN PAST - Alcohol use Yes Comment: rare,NOT WHILE BP 110/64 Pulse 78 Temp 36.5 ?C (97.7 ?F) (Tympanic) Resp 16 Objective Physical Exam Constitutional: She is oriented to person, place, and time and well-developed, well-nourished, and in no distress. HENT: Head: Normocephalic and atraumatic. Neck: Normal range of motion. Neck supple. Cardiovascular: Normal rate, regular rhythm and normal heart sounds. Pulmonary/Chest: Effort normal and breath sounds normal. Abdominal: Soft. Bowel sounds are normal. She exhibits no distension. There is no tenderness. Neurological: She is alert and oriented to person, place, and time. Skin: Skin is warm and dry. No rash noted. Psychiatric: Affect and judgment normal. Nursing note and vitals reviewed. ASSESSMENT/PLAN: 1. Dysuria - ICD9: 788.1, ICD10: R30.0 acute - UA positive for non hemo mod hematuria, nothing else. Discussed that her dip does not show an infection today. She had her paperwork from previous visit that had only 70 leuk est, and trace blood, but she had taken azo then. I will culture her urine. - She has also develop a vaginal yeast infection, she usually does with antibiotics. Given diflucan. - Discussed that she needs to call her ENT surgeon tomorrow before her surgery to explain her symptoms and if she can continue with the surgery. - She is not having flank pain or abdominal pain to suggest a kidney stone. - She is supposed to also start Augmentin tomorrow after her surgery per her ENT, if urine culture shows bacteria she is on this medication to check resistance. - Send urine for culture - Discussed with patient concerning symptoms to go to the emergency department or follow up here. Pt agreeable with this plan. [place]AN [place] Observed: 08/28/2017 Status: COMPLETED Source: [place] 9:45 AM [facility] REPOSITORY Office Visit (WSTR) CHIKA GOOD ([id number]) 1970 [facility] Date Time Provider Department 08/28/17 9:45 AM ENIO LEA (KISHA) [facility] During your visit today, we recorded the following information about you: Temperature Pulse Respiration Blood pressure 97.7 degrees 78/minute 16/minute 110/64 Enio Lea PA-C 08/28/2017 10:43 AM Signed Subjective HPI Pt presents with urinary urgency and dysuria for 3 days. She was on bactrim for 5 days, the last dose being 4 days ago. She had been seen at a [facility] for that out of state. She doesn't know if they cultured her urine. She also has developed a yeast infection from the bactrim. She typically gets a yeast infection from antibiotics. She denies flank or back pain. No hx of kidney stones. She hasn't noticed blood in her urine No fevers or chills. No nv. She is not on her menstrual cycle. Review of Systems Gastrointestinal: Negative. Genitourinary: Positive for dysuria and urgency. Negative for flank pain, frequency and hematuria. Musculoskeletal: Negative. All other systems reviewed and are negative. PAST MEDICAL HISTORY Diagnosis Date - Abnormal glandular Papanicolaou smear of cervix Abn. Pap smear (cervix) - Acute gastritis without mention of hemorrhage - Allergic rhinitis, seasonal - Anxiety 07/07/2012 - Depression 07/07/2012 - Dysphagia, unspecified(787.20) - Esophageal stenosis - GERD without esophagitis 12/10/2015 - Hyperlipidemia, mixed 11/01/2014 - Migraine, unspecified, with intractable migraine, so stated, without mention of status migrainosus Migraine - Moderate intermittent asthma without complication seasonal - Obesity (BMI 35.0-39.9 without comorbidity) 06/06/2013 - LITO (obstructive sleep apnea) 01/22/2015 Has a CPAP - Other constipation - Unspecified asthma(493.90) seasonal Current Outpatient Prescriptions: buPROPion SR (ZYBAN SR; WELLBUTRIN SR) 150 mg 12 hr tablet Take 1 tablet by mouth twice daily. Disp: 60 tablet Rfl: 5 fluticasone-salmeterol (ADVAIR DISKUS) 250-50 mcg/dose dsdv Inhale 1 Puff as instructed twice daily. Rinse and gargle mouth after use with water. Disp: 3 Inhaler Rfl: 1 apremilast (OTEZLA) 30 mg tablet Take 1 tablet by mouth once daily. Per derm Disp: Rfl: pantoprazole DR (PROTONIX) 40 mg tablet take 1 tablet by mouth once daily 1/2 HOUR BEFORE BREAKFAST Disp: 90 tablet Rfl: 3 albuterol HFA (VENTOLIN HFA) 90 mcg/actuation inhaler Inhale 2 Puffs as instructed every 4 hours as needed. Do no substitute with ProAir. Disp: 1 Inhaler Rfl: 5 CPAP Initiate AutoPAP @ 5-15 cm of water with humidification. Mask (per patient preference) optional chin strap (if indicated), filters, tubing / heated tubing, heated humidity and lifetime supplies. Dx. LITO G47.33 327.23 Disp: 1 Device Rfl: 0 Cholecalciferol, Vitamin D3, (VITAMIN D) 1,000 unit tab Take 1,000 Units by mouth once daily. Disp: Rfl: L. RHAMNOSUS GG/INULIN (CULTURELLE PROBIOTICS ORAL) Take by mouth. Disp: Rfl: fluconazole (DIFLUCAN) 150 mg tablet Take 1 tablet by mouth one time only for 1 dose. Disp: 1 tablet Rfl: 0 No current facility-administered medications for this visit. PAST SURGICAL HISTORY Procedure Laterality Date - BREAST BIOPSY W/ULTRASOUND GUIDANCE Left 05/03/15 U/S Needle core upper mid left breast - BREAST REDUCTION 09/2016 - CERVIX UTERI CONIZA LP ELCTRO EXCI 1993 LEEP-Cervix - DELIVERY ONLY 11/19 WC - COLONOSCOP W/ OR W/O BRS SPEC 2003 Colonoscopy - COLONOSCOP W/ OR W/O BRSH SPEC 08/21/2008 Colonoscopy - COLONOSCOP W/ OR W/O BRS SPEC 11--15 - EGD 1991 REMOVAL OF FOREIGN BODY - EGD W/O BRS SPECIMEN W/BX 06/12/08 - EGD W/O OR W/BRUSH/WASH 05/16/2017 EGD - ESOPH W/O [facility] SPEC BALLOON DIL 06/12/08 - REMOVAL ADENOIDS,PRIMARY,<12 Y/O Adenoidectomy - REMOVAL OF TONSILS,<12 Y/O Tonsillectomy FAMILY HISTORY Problem Relation Age of Onset - Asthma Mother - Hypertension Father - Colon Cancer Father Colon polyps - Colon Cancer Maternal Grandfather - Colon Cancer Paternal Grandfather - Blood Disease Sister - Asthma Brother Social History Substance Use Topics - Smoking status: Former Smoker Years: 15.00 Types: Cigarettes Quit date: 07/12/2006 - Smokeless tobacco: Never Used Comment: SOCIAL SMOKER IN PAST - Alcohol use Yes Comment: rare,NOT WHILE BP 110/64 Pulse 78 Temp 36.5 ?C (97.7 ?F) (Tympanic) Resp 16 Objective Physical Exam Constitutional: She is oriented to person, place, and time and well-developed, well-nourished, and in no distress. HENT: Head: Normocephalic and atraumatic. Neck: Normal range of motion. Neck supple. Cardiovascular: Normal rate, regular rhythm and normal heart sounds. Pulmonary/Chest: Effort normal and breath sounds normal. Abdominal: Soft. Bowel sounds are normal. She exhibits no distension. There is no tenderness. Neurological: She is alert and oriented to person, place, and time. Skin: Skin is warm and dry. No rash noted. Psychiatric: Affect and judgment normal. Nursing note and vitals reviewed. ASSESSMENT/PLAN: 1. Dysuria - ICD9: 788.1, ICD10: R30.0 acute - UA positive for non hemo mod hematuria, nothing else. Discussed that her dip does not show an infection today. She had her paperwork from previous visit that had only 70 leuk est, and trace blood, but she had taken azo then. I will culture her urine. - She has also develop a vaginal yeast infection, she usually does with antibiotics. Given diflucan. - Discussed that she needs to call her ENT surgeon tomorrow before her surgery to explain her symptoms and if she can continue with the surgery. - She is not having flank pain or abdominal pain to suggest a kidney stone. - She is supposed to also start Augmentin tomorrow after her surgery per her ENT, if urine culture shows bacteria she is on this medication to check resistance. - Send urine for culture - Discussed with patient concerning symptoms to go to the emergency department or follow up here. Pt agreeable with this plan. JUAN DIEGO [place] Ma 08/28/2017 12:43 PM Signed Addended by: CONI SANDERS MA on: 08/28/2017 12:43 PM Modules accepted: Orders Enio Lea PA-C 08/28/2017 12:50 PM Signed Addended by: ENIO LEA PA-C on: 08/28/2017 12:50 PM Modules accepted: Orders Referring Provider: SELF [[id number]] Allergies As of Date: 08/28/2017 (No Known Allergies) Date Reviewed: 08/28/2017 Reviewed by: Cnoi Sanders Ma - Fully Assessed Reason for Visit: Urinary Frequency [1086] Cmt: burning with urination started bactrim 08/21, 5 day course-symptoms started last night Reason For Visit History Recorded Primary Visit Diagnosis:Dysuria [R30.0] Order(s):[] fluconazole (DIFLUCAN) 150 mg tabletTake 1 tablet by mouth one time only for 1 dose.Disp: 1 tabletRfl: 0 UA DIP B/O [[id number]] Order #: [id number] URINE CULTURE [SQURCUL] Order #: [id number]. #:[id number] Prescriptions as of 08/28/2017 Sig: BUPROPION HCL SR 150 MG TABLE* Take 1 tablet by mouth twice * FLUTICASONE 250 MCG-SALMETERO* Inhale 1 Puff as instructed t* APREMILAST 30 MG TABLET Take 1 tablet by mouth once d* PANTOPRAZOLE 40 MG TABLET,DEL* take 1 tablet by mouth once d* ALBUTEROL SULFATE HFA 90 MCG/* Inhale 2 Puffs as instructed * CPAP Initiate AutoPAP @ 5-15 cm of* CHOLECALCIFEROL (VITAMIN D3) * Take 1,000 Units by mouth onc* CULTURELLE PROBIOTICS ORAL Take by mouth. FLUCONAZOLE 150 MG TABLET Take 1 tablet by mouth one ti* Problem List As Of Date 08/28/2017 Noted Resolved ADVANCED MATERNAL AGE:MULTIPARA[659.63] [O09.52*INVALID FOR*04/19/2007 AMA PRIMIGRAVID-ANTEPARTUM [O09.519] INVALID FOR*11/21/2007 Family history of malignant neoplasm of gastroi* Priority: F Moderate intermittent asthma without complicati* Priority: A More... Allergic rhinitis, seasonal [J30.2] Priority: B Anxiety [F41.9] INVALID FOR* Priority: A Depression [F32.9] INVALID FOR* Priority: A Obesity (BMI 35.0-39.9 without comorbidity) [E6*INVALID FOR* Priority: B Hyperlipidemia, mixed [E78.2] INVALID FOR* Priority: A LITO (obstructive sleep apnea) [G47.33] INVALID FOR* Priority: B More... Abnormal mammogram [R92.8] INVALID FOR* Priority: C Psoriasis [L40.9] INVALID FOR* Priority: D GERD without esophagitis [K21.9] INVALID FOR* Priority: A Upper back pain [M54.9] INVALID FOR* Neck pain [M54.2] INVALID FOR* Headache [R51] INVALID FOR* Large breasts [N62] INVALID FOR* Encounter for screening for diabetes mellitus [*INVALID FOR* Functional dyspepsia [K30] INVALID FOR* More... Gastroesophageal reflux disease [K21.9] INVALID FOR* More... Prescriptions ordered this encounter Disp Refills Start End FLUCONAZOLE 150 MG TABLET 1 ta* 0 08/28/2017 08/28/2017 Route: ORAL Sig: Take 1 tablet by mouth one time only for 1 dose. Encounter Status:Closed by ENIO LEA PA-C on 08/28/17 PARTY CHIEF OFFICE VISIT Observed: 06/29/2017 Status: F Source: [place] REPORT 3:41 PM [facility] 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: No Is patient in pain?: No Allergies No Known Allergies Allergy (Unverified 06/28/17 09:59) Medications albuterol sulfate HFA 90 mcg/actuation aerosol inhaler 1 puff INHALATION Q6H 06/28/17 [History Confirmed 06/28/17] apremilast 30 mg tablet 30 mg PO BID 06/28/17 [History Confirmed 06/28/17] bupropion HCl SR 150 mg tablet,12 hr sustained-release 150 mg PO BID 06/28/17 [History Confirmed 06/28/17] fluticasone 250 mcg-salmeterol 50 mcg/dose blistr powdr for inhalation 1 inh INHALATION ONCE 06/28/17 [History Confirmed 06/28/17] pantoprazole 40 mg tablet,delayed release 40 mg PO QDAY 06/28/17 [History Confirmed 06/28/17] ciprofloxacin 500 mg tablet 500 mg PO BID 3 Days #6 tab 06/29/17 [Rx] Is last menstrual period known: Yes Last Menstral Period: 06/15/17 Post menopausal: No Patient : No : No PFSH Medical History Abnormal uterine bleeding (Acute) Abnormal Pap smear of cervix (Acute) Anxiety (Acute) Asthma (Acute) Surgical History delivery delivered (Acute) H/O LEEP (Acute) Hx of breast reduction, elective (Acute) Family History Father Colon cancer Grandfather Colon cancer Social History Smoking Status: Never smoker alcohol intake: current details: social substance use type: does not use caffeine: Yes what type of physical activity do you participate in: walking seatbelt use: always do you feel safe at home: Yes additional social history: is Ioana ([employer] at a company in [place]) Patient works at [employer] Pregancy History 1 Elective abortions Hx Para 1 Spontaneous abortions Past Pregnancies Del. 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 she is interested in losing weight, co some urinary discomfort Last PAP: unsure History of abnormal PAP: yes Last mammogram: no History of abnormal mammogram: Colon cancer screening: Other preventative health care screenings: per pcp Female Reproductive History Last Menstral Period: 06/15/17 Cycle Length: 21-35 Bleeding Duration: 10 Control Method: none Frequency of changing protection: every hour to couple of hours associated symptoms: dysmenorrhea Questions: Metorrhagia: No, Sexually active: Yes, Dyspareunia: No, PCB: No Menopausal Symptoms: No hot flashes, No night sweats, Yes weight change, No mood changes, No difficulty concentrating, No sleep problems, No change in libido ROS Const Constitutional: Reports as per HPI and weight gain; denies poor appetite, fatigue, increased appetite, weight loss or night sweats Cardio Card: Denies chest pain Resp Resp: Denies dyspnea or cough GI GI: Reports as per HPI; denies bloating, abdominal pain, constipation, vomiting or nausea : Reports as per HPI, vaginal odor, urinary incontinence (mild occasional stress new in the last few months) and other; denies blood in urine, vaginal itching, vaginal dryness, vaginal discharge, urinary urgency, urinary frequency, pelvic pain, painful urination, difficulty urinating, prolapse symptoms, nipple discharge or hot flashes Skin Skin/Breast: Denies breast pain, breast skin changes, nipple discharge, breast lump or changing lesions Psych Psych: Denies difficulty concentrating or change in sex drive Exam Const General: cooperative, healthy appearing, comfortable, no acute distress, well developed, well groomed HENMT Head: normal to inspection, normocephalic Ears: hearing grossly normal bilaterally, external ears normal Nose: external nose normal Face and sinus: normal facial exam Neck Neck: normal visual inspection, full ROM, no lymphadenopathy Thyroid: thyroid normal Chest Chest palpation AND inspection: normal inspection of the chest Breast inspection: normal inspection of the breasts, normal inspection of the axillae Breast palpation: normal palpation of the breasts, normal palpation of the axillae, no axillary lymphadenopathy Resp Effort AND Inspection: normal respiratory effort GI Inspection: normal to inspection, non-distended Palpation: no guarding, soft, no hepatosplenomegaly General: bladder normal to palpation External Female Exam: normal external appearance, normal appearance of the urethra, no lesions Urethra: normal appearance of the urethra, normal palpation Speculum Exam - Vagina: normal appearance of the vagina, normal vaginal discharge Speculum Exam - Cervix: normal appearance of the cervix, no cervical discharge, no lesions, nontender Bimanual Exam- Vagina AND Uterus: No cervical tenderness, normal bimanual exam, uterine size normal, bladder normal to palpation, uterine mobility normal, uterine consistency normal, uterus non-tender, no cervical motion tenderness Bimanual Exam- Adnexa, other: normal adnexae, no adnexal masses, adnexae non-tender Skin General: no rashes or lesions noted Neuro General: alert, moves all extremities, no focal motor deficits Extrem General: no pedal edema, normal to inspection Psych Appearance: grossly normal Mental Status: mental status grossly normal Affect: normal affect Speech and Movement: speech and movement normal Attitude: cooperative Assessment AND Plan Problems 1. Abnormal uterine bleeding N93.9 cbc tsh us emb 2. Vaginal odor N89.8 3. Encounter for gynecological examination with abnormal finding Z01.411 Plan Cervical cancer screening: pap hpv Breast cancer screening: mamm fu after labs and imaging for AUB. genital culture sent for odor other health maintenance examination reviewed and up to date. Encouraged maintenance of a healthy weight and active lifestyle and handout given. Calcium/vitamin D recommendations provided. Annual exam handout including recommendations for good health guidelines and basic screening information given. Problem list up to date, see problem list details for any additional plan information. Follow up in one year for annual health maintenance exam or sooner if needed. Orders Orders: Coding Level of Care Code Off vis,new,prev 40-64yrs Diagnoses Abnormal uterine bleeding N93.9 Vaginal odor N89.8 Encounter for gynecological examination with abnormal finding Z01.411 Gynecological examination findings: abnormal findings PRESENT 06/29/17 1541 <Electronically signed by Keyonna Lainez MD> Date Keyonna Lainez MD Cosigner Signature: Date (if applicable) CC: CBC W/DIFF, AUTOMATED Collected: 06/28/2017 Status: F Source: [place] 11:19 AM [facility] [place] REPOSITORY TYPE CODE TESTS RESULT OUT OF RANGE REFERENCE UNITS LAB L100.1000 4.4-11.0 K/mm3 Normal WBC 8.3 LAB L100.1200 4.2-5.4 M/mm3 Normal RBC 4.37 LAB L100.1300 12.0-15.0 g/dl Normal HGB 13.5 LAB L100.1400 37-47 % Normal HCT 40.1 LAB L100.1500 81-99 fL Normal MCV 91.8 LAB L100.1600 27.0-32.0 pg Normal MCH 30.9 LAB L100.1700 32-36 g/gl Normal MCHC 33.7 LAB L100.1810 11.6-14.6 % Normal RDW CV 13.2 LAB L100.1820 35.1-43.9 fl Normal RDW SD 43.3 LAB L100.1900 150-450 K/mm3 Normal PLT 290 LAB L100.2000 6.2-12.0 fl Normal MPV 10.5 LAB L100.2100 47-70 % Normal NEUT% 61.9 LAB L100.2200 19-41 % Normal LY% 22.7 LAB L100.2300 0-10 % Normal MONO% 7.8 LAB L100.2400 0-5 % High EO% 6.9 LAB L100.2500 0-1 % Normal BASO% 0.6 LAB L100.2550 0.0-0.9 % Normal IM GRAN % 0.100 Result Comment: IG% - Immature Granulocytes (promyelocytes, myelocytes and metamyelocytes) > 1% indicates that a LEFT SHIFT is Present. LAB L100.2620 2.0-7.7 X10 3/uL Normal Absolute Neut 5.1 LAB L100.2720 0.83-4.51 X10 3/ul Normal Absolute Lymph 1.88 Performed By: #### L100.0100, L501.9520 #### [facility] [address] [place], [place], [address] THYROID STIM HORMONE Collected: 06/28/2017 Status: F Source: [place]HELLE (TSH) 11:19 AM [facility] [place] REPOSITORY TYPE CODE TESTS RESULT OUT OF RANGE REFERENCE UNITS LAB L501.9520 0.358-3.74 uIU/mL Normal TSH 1.67 Performed By: #### L100.0100, L501.9520 #### [facility] [address] [place], [place], [address] Observed: 06/28/2017 Status: F Source: MICHELLE CULTURE, URINE 9:40 AM [facility] [place] REPOSITORY Urine Culture ORGANISM 1: Presumptive E. coli [place] Count 11,000-25,000 Presumptive E. coli: REACTION Amoxacillin/Clavulanic Acid $ 16 I Ampicillin $ >=32 R Ampicillin/Sulbactam $ >=32 R Cefazolin $ 8 S Cefepime $ <=1 S Ceftriaxone $ <=1 S Ciprofloxacin $ <=0.25 S ESBL - Ertapenim $$$ <=0.5 S Gentamicin $ <=1 S Imipenem *NF <=0.25 S Levofloxacin $ <=0.12 S Nitrofurantoin $ 32 S Piperacillin/Tazobactam $$ <=4 S Tobramycin $ <=1 S Trimethoprim/Sulfametho $ >=320 R (NF) indicates non-formulary drug at [facility]. Approval by Infectious Disease Specialist required before non-formulary drugs may be ordered and/or dispensed. Performed By: #### M100.0650 #### [facility] [address] [place], [place], [address] Observed: 06/28/2017 Status: F Source: [place]LE CULTURE, GENITAL 9:40 AM [facility] [place] COMPREHENSIVE REPOSITORY Reason for Exam: AUB Gram Stain Score = 2 Interpretation: 0-3 Normal, 4-6 Intermediate, 7-10 Positive BV Gram Stain 1+ Epithelial cells Rare White Blood Cells 2+ Gram positive rods 3+ Gram negative rods Gent Cult Comp No yeast, Gardnerella, Neisseria or beta-hemolytic Streptococcus isolated. 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 of containers..01 ThinPrep Vial TYPE CODE TESTS RESULT OUT OF RANGE REFERENCE UNITS LAB L7400.0800 . Normal DIAGN Comment Result Comment: NEGATIVE FOR INTRAEPITHELIAL LESION AND MALIGNANCY. FUNGAL ORGANISMS MORPHOLOGICALLY CONSISTENT WITH MARLENY SPECIES ARE PRESENT. LAB L7400.0900 . Normal ADEQ Comment Result Comment: Satisfactory for evaluation. Endocervical and/or squamous metaplastic cells (endocervical component) are present. LAB L7400.1400 . Normal PERFORM Comment Result Comment: Rc Davidson, Budget Report Clerk (ASCP) LAB L7400.1720 . Normal Path prov. Comment ICD9 Result Comment: R87.5 LAB L7400.2575 . Normal TEST METHOD Comment Result Comment: This liquid based ThinPrep(R) pap test was screened with the use of an image guided system. LAB L7400.2600 . Normal . COMM LAB L7400.2700 . Normal PAPSMR Comment Result Comment: The Pap smear is a screening test designed to aid in the detection of premalignant and malignant conditions of the uterine cervix. It is not a diagnostic procedure and should not be used as the sole means of detecting cervical cancer. Both false-positive and false-negative reports do occur. LAB L7400.2760 Negative Normal HPV APTIMA, Negative HR Result Comment: This test detects fourteen high-risk HPV types (16/18/31/33/35/39/45/ 51/52/56/58/59/66/68) without differentiation. Performed at: [facility] [address] [id number] Flux Tube Attendant: Suzette Grover MD, Phone: [phone] Performed at: =[facility] - [facility] [address] [id number] Flux Tube Attendant: Suzette Grover MD, Phone: [phone] Performed By: #### L7400.0377 #### [facility] (refer to report for specific site) refer to report for address and phone number PROGRESS Observed: 06/14/2017 Status: COMPLETED Source: [place] 2:02 PM [facility] REPOSITORY HNO ID: [id number] Author: Diana Jackson Service: (none) Author Type: Nurse Practitioner Type: Progress Notes Filed: 06/14/2017 5:38 PM Note Text: Chika Montesinos Good a 46 year old female who is returning for follow up regarding GERD symptoms, dysphagia and dyspepsia. I saw the patient in consultation on 05/12/17. That note has been reviewed. The patient was seen by Dr. Alvarez for upper endoscopy 05/16/17. The procedure report has been reviewed and findings as follows: Impression: ? ? - Benign-appearing esophageal stenosis. Dilated. ? - Erythematous mucosa in the antrum. Biopsied. ? - Normal examined duodenum. 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 - No morphologic evidence of H. pylori organisms. I have reviewed the procedure and pathology reports, as well as the images, with the patient. Presenting complaint: The patient presents today reporting that she hasn't had any reflux or heartburn symptoms since the procedure. No dysphagia. Traveled to [place]. Lots of good food. Wine intake increased. Only a mild symptoms after having tomatoes, but nothing bad No need for Zantac. REVIEW OF SYSTEMS: GENERAL: No weight loss, malaise or fevers GI: The patient states that her appetite has been good. She does get hungry. There has been no nausea, no vomiting. She denies dysphagia and denies odynophagia. There has not been indigestion or heartburn. There has not been regurgitation. Bowel habits have been regular. There has not been diarrhea. There has not been constipation. The patient denies rectal bleeding. There has not been melena. No abdominal pain. All other reviewed and negative other than HPI. PAST MEDICAL HISTORY Diagnosis Date - Abnormal glandular Papanicolaou smear of cervix Abn. Pap smear (cervix) - Acute gastritis without mention of hemorrhage - Allergic rhinitis, seasonal - Anxiety 07/07/2012 - Depression 07/07/2012 - Dysphagia, unspecified(787.20) - Esophageal stenosis - GERD without esophagitis 12/10/2015 - Hyperlipidemia, mixed 11/01/2014 - Migraine, unspecified, with intractable migraine, so stated, without mention of status migrainosus Migraine - Moderate intermittent asthma without complication seasonal - Obesity (BMI 35.0-39.9 without comorbidity) 06/06/2013 - LITO (obstructive sleep apnea) 01/22/2015 Has a CPAP - Other constipation - Unspecified asthma(493.90) seasonal PAST SURGICAL HISTORY Procedure Laterality Date - BREAST BIOPSY W/ULTRASOUND GUIDANCE Left 05/03/15 U/S Needle core upper mid left breast - BREAST REDUCTION 09/2016 - CERVIX UTERI CONIZA LP ELCTRO EXCI 1994 LEEP-Cervix - DELIVERY ONLY 11/19 [facility] - COLONOSCOP W/ OR W/O [facility] SPEC 2003 Colonoscopy - COLONOSCOP W/ OR W/O [facility] SPEC 08/21/2008 Colonoscopy - COLONOSCOP W/ OR W/O [facility] SPEC 11-3-15 - EGD 1991 REMOVAL OF FOREIGN BODY - EGD W/O [facility] SPECIMEN W/BX 06/12/08 - EGD W/O OR W/BRUSH/WASH 05/16/2017 EGD - ESOPH W/O [facility] SPEC BALLOON DIL 06/12/08 - REMOVAL ADENOIDS,PRIMARY,<12 Y/O Adenoidectomy - REMOVAL OF TONSILS,<12 Y/O Tonsillectomy FAMILY HISTORY Problem Relation Age of Onset - Asthma Mother - Hypertension Father - Colon Cancer Father Colon polyps - Colon Cancer Maternal Grandfather - Colon Cancer Paternal Grandfather - Blood Disease Sister - Asthma Brother Current Outpatient Prescriptions: buPROPion SR (ZYBAN SR; WELLBUTRIN SR) 150 mg 12 hr tablet Take 1 tablet by mouth twice daily. Disp: 60 tablet Rfl: 5 fluticasone-salmeterol (ADVAIR DISKUS) 250-50 mcg/dose dsdv Inhale 1 Puff as instructed twice daily. Rinse and gargle mouth after use with water. Disp: 3 Inhaler Rfl: 1 apremilast (OTEZLA) 30 mg tablet Take 1 tablet by mouth once daily. Per derm Disp: Rfl: pantoprazole DR (PROTONIX) 40 mg tablet take 1 tablet by mouth once daily 1/2 HOUR BEFORE BREAKFAST Disp: 90 tablet Rfl: 3 albuterol HFA (VENTOLIN HFA) 90 mcg/actuation inhaler Inhale 2 Puffs as instructed every 4 hours as needed. Do no substitute with ProAir. Disp: 1 Inhaler Rfl: 5 CPAP Initiate AutoPAP @ 5-15 cm of water with humidification. Mask (per patient preference) optional chin strap (if indicated), filters, tubing / heated tubing, heated humidity and lifetime supplies. Dx. LITO G47.33 327.23 Disp: 1 Device Rfl: 0 Cholecalciferol, Vitamin D3, (VITAMIN D) 1,000 unit tab Take 1,000 Units by mouth once daily. Disp: Rfl: L. RHAMNOSUS GG/INULIN (CULTURELLE PROBIOTICS ORAL) Take by mouth. Disp: Rfl: No current facility-administered medications for this visit. SOCIAL HISTORY: Reviewed. PHYSICAL EXAMINATION: Blood pressure 100/68, pulse 94, height 160 cm (5' 3), weight 97.5 kg (215 lb), last menstrual period 05/25/2017. General Appearance: Well appearing, alert, in no acute distress, well-hydrated, well nourished. Skin: Skin color, texture, turgor normal. Eyes: Anicteric sclera. Heart: RRR without murmur. Abdomen: Abdomen soft, non-tender. Bowel sounds normal. Impression: GERD 2)dyspepsia - improved. Plan: The patent will continue pantoprazole daily. I have asked her to follow up if symptoms return. Patient asks for suggestions regarding weight loss. I recommended Weight Watchers since highly recommends that program. 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 The patient will communicate with me through [facility]. Will send in a 90 day prescription to her mail order pharmacy once we know the details. I have personally interviewed and examined this patient. I have reviewed the information that the MA entered for this encounter. Greater than 30 minutes total time used this visit to review old chart, review new information, update current history and evaluate patient. A majority of the time was spent in discussion and counseling to formulate the plan. Diana Jackson RN APRN.CLIMATE CHANGE ANALYST CNOV Observed: 06/14/2017 Status: COMPLETED Source: [place] 2:00 PM [facility] REPOSITORY [facility] CHIKA GOOD ([id number]) 1970 F [facility] Date Time Provider Department 06/14/17 2:00 PM DIANA JACKSON (CENTRAL STERILE TECHNICIAN) [facility] During your visit today, we recorded the following information about you: Pulse Blood pressure Weight Height 94/minute 100/68 97.5 kg 1.6 m Last Period 05/25/17 Diana Jackson RN APRN.CLIMATE CHANGE ANALYST 06/14/2017 5:38 PM Signed Chika Good a 46 year old female who is returning for follow up regarding GERD symptoms, dysphagia and dyspepsia. I saw the patient in consultation on 05/12/17. That note has been reviewed. The patient was seen by Dr. Alvarez for upper endoscopy 05/16/17. The procedure report has been reviewed and findings as follows: Impression: ? ? - Benign-appearing esophageal stenosis. Dilated. ? - Erythematous mucosa in the antrum. Biopsied. ? - Normal examined duodenum. 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 - No morphologic evidence of H. pylori organisms. I have reviewed the procedure and pathology reports, as well as the images, with the patient. Presenting complaint: The patient presents today reporting that she hasn't had any reflux or heartburn symptoms since the procedure. No dysphagia. Traveled to [place]. Lots of good food. Wine intake increased. Only a mild symptoms after having tomatoes, ANDquot;but nothing badANDquot; No need for Zantac. REVIEW OF SYSTEMS: GENERAL: No weight loss, malaise or fevers GI: The patient states that her appetite has been good. She does get hungry. There has been no nausea, no vomiting. She denies dysphagia and denies odynophagia. There has not been indigestion or heartburn. There has not been regurgitation. Bowel habits have been regular. There has not been diarrhea. There has not been constipation. The patient denies rectal bleeding. There has not been melena. No abdominal pain. All other reviewed and negative other than HPI. PAST MEDICAL HISTORY Diagnosis Date - Abnormal glandular Papanicolaou smear of cervix Abn. Pap smear (cervix) - Acute gastritis without mention of hemorrhage - Allergic rhinitis, seasonal - Anxiety 07/07/2012 - Depression 07/07/2012 - Dysphagia, unspecified(787.20) - Esophageal stenosis - GERD without esophagitis 12/10/2015 - Hyperlipidemia, mixed 11/01/2014 - Migraine, unspecified, with intractable migraine, so stated, without mention of status migrainosus Migraine - Moderate intermittent asthma without complication seasonal - Obesity (BMI 35.0-39.9 without comorbidity) 06/06/2013 - LITO (obstructive sleep apnea) 01/22/2015 Has a CPAP - Other constipation - Unspecified asthma(493.90) seasonal PAST SURGICAL HISTORY Procedure Laterality Date - BREAST BIOPSY W/ULTRASOUND GUIDANCE Left 05/03/15 U/S Needle core upper mid left breast - BREAST REDUCTION 09/2016 - CERVIX UTERI CONIZA LP ELCTRO EXCI 1993 LEEP-Cervix - DELIVERY ONLY 11/19 [facility] - COLONOSCOP W/ OR W/O [facility] SPEC 2003 Colonoscopy - COLONOSCOP W/ OR W/O BRS SPEC 08/21/2008 Colonoscopy - COLONOSCOP W/ OR W/O [facility] SPEC 01-14-15 - EGD 1991 REMOVAL OF FOREIGN BODY - EGD W/O [facility] SPECIMEN W/BX 06/12/08 - EGD W/O OR W/BRUSH/WASH 05/16/2017 EGD - ESOPH W/O [facility] SPEC BALLOON DIL 06/12/08 - REMOVAL ADENOIDS,PRIMARY,ANDlt;13 Y/O Adenoidectomy - REMOVAL OF TONSILS,ANDlt;13 Y/O Tonsillectomy FAMILY HISTORY Problem Relation Age of Onset - Asthma Mother - Hypertension Father - Colon Cancer Father Colon polyps - Colon Cancer Maternal Grandfather - Colon Cancer Paternal Grandfather - Blood Disease Sister - Asthma Brother Current Outpatient Prescriptions: buPROPion SR (ZYBAN SR; WELLBUTRIN SR) 150 mg 12 hr tablet Take 1 tablet by mouth twice daily. Disp: 60 tablet Rfl: 5 fluticasone-salmeterol (ADVAIR DISKUS) 250-50 mcg/dose dsdv Inhale 1 Puff as instructed twice daily. Rinse and gargle mouth after use with water. Disp: 3 Inhaler Rfl: 1 apremilast (OTEZLA) 30 mg tablet Take 1 tablet by mouth once daily. Per derm Disp: Rfl: pantoprazole DR (PROTONIX) 40 mg tablet take 1 tablet by mouth once daily 1/2 HOUR BEFORE BREAKFAST Disp: 90 tablet Rfl: 3 albuterol HFA (VENTOLIN HFA) 90 mcg/actuation inhaler Inhale 2 Puffs as instructed every 4 hours as needed. Do no substitute with ProAir. Disp: 1 Inhaler Rfl: 5 CPAP Initiate AutoPAP @ 5-15 cm of water with humidification. Mask (per patient preference) optional chin strap (if indicated), filters, tubing / heated tubing, heated humidity and lifetime supplies. Dx. LITO G47.33 327.23 Disp: 1 Device Rfl: 0 Cholecalciferol, Vitamin D3, (VITAMIN D) 1,000 unit tab Take 1,000 Units by mouth once daily. Disp: Rfl: L. RHAMNOSUS GG/INULIN (CULTURELLE PROBIOTICS ORAL) Take by mouth. Disp: Rfl: No current facility-administered medications for this visit. SOCIAL HISTORY: Reviewed. PHYSICAL EXAMINATION: Blood pressure 100/68, pulse 94, height 160 cm (5' 3ANDquot;), weight 97.5 kg (215 lb), last menstrual period 05/25/2017. General Appearance: Well appearing, alert, in no acute distress, well-hydrated, well nourished. Skin: Skin color, texture, turgor normal. Eyes: Anicteric sclera. Heart: RRR without murmur. Abdomen: Abdomen soft, non-tender. Bowel sounds normal. Impression: GERD 2)dyspepsia - improved. Plan: The patent will continue pantoprazole daily. I have asked her to follow up if symptoms return. Patient asks for suggestions regarding weight loss. I recommended Weight Watchers since highly recommends that program. 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 The patient will communicate with me through [employer]. Will send in a 90 day prescription to her mail order pharmacy once we know the details. I have personally interviewed and examined this patient. I have reviewed the information that the MA entered for this encounter. Greater than 30 minutes total time used this visit to review old chart, review new information, update current history and evaluate patient. A majority of the time was spent in discussion and counseling to formulate the plan. Diana Jackson RN BOX CLOSING MACHINE OPERATOR.JESICA Jackson RN BOX CLOSING MACHINE OPERATOR.JESICA 06/14/2017 2:31 PM Signed Let me know where to send the prescription for 90 days of omepraozle. Communicate via [employer]. Referring Provider: DIANA JACKSON (CENTRAL STERILE TECHNICIAN) [[id number]] Allergies As of Date: 06/14/2017 (No Known Allergies) Date Reviewed: 06/14/2017 Reviewed by: Dina Richmond MA - Fully Assessed Reason for Visit: Recheck [92] Primary Visit Diagnosis:Esophageal stricture [K22.2] Other Visit Diagnosis:Gastroesophageal reflux disease without esophagitis [K21.9] Prescriptions as of 06/14/2017 Sig: BUPROPION HCL SR 150 MG TABLE* Take 1 tablet by mouth twice * FLUTICASONE 250 MCG-SALMETERO* Inhale 1 Puff as instructed t* APREMILAST 30 MG TABLET Take 1 tablet by mouth once d* PANTOPRAZOLE 40 MG TABLET,DEL* take 1 tablet by mouth once d* ALBUTEROL SULFATE HFA 90 MCG/* Inhale 2 Puffs as instructed * CPAP Initiate AutoPAP @ 5-15 cm of* CHOLECALCIFEROL (VITAMIN D3) * Take 1,000 Units by mouth onc* CULTURELLE PROBIOTICS ORAL Take by mouth. Problem List As Of Date 06/14/2017 Noted Resolved ADVANCED MATERNAL AGE:MULTIPARA[659.63] [O09.52*INVALID FOR*04/19/2007 AMA PRIMIGRAVID-ANTEPARTUM [O09.519] INVALID FOR*11/21/2007 Family history of malignant neoplasm of gastroi* Priority: F Moderate intermittent asthma without complicati* Priority: A More... Allergic rhinitis, seasonal [J30.2] Priority: B Anxiety [F41.9] INVALID FOR* Priority: A Depression [F32.9] INVALID FOR* Priority: A Obesity (BMI 35.0-39.9 without comorbidity) [E6*INVALID FOR* Priority: B Hyperlipidemia, mixed [E78.2] INVALID FOR* Priority: A LITO (obstructive sleep apnea) [G47.33] INVALID FOR* Priority: B More... Abnormal mammogram [R92.8] INVALID FOR* Priority: C Psoriasis [L40.9] INVALID FOR* Priority: D GERD without esophagitis [K21.9] INVALID FOR* Priority: A Upper back pain [M54.9] INVALID FOR* Neck pain [M54.2] INVALID FOR* Headache [R51] INVALID FOR* Large breasts [N62] INVALID FOR* Encounter for screening for diabetes mellitus [*INVALID FOR* Functional dyspepsia [K30] INVALID FOR* More... Gastroesophageal reflux disease [K21.9] INVALID FOR* More... Other instructions from your clinician: Let me know where to send the prescription for 90 days of omepraozle. Communicate via [employer]. Encounter Status:Closed by DIANA JACKSON CNP on 06/14/17 PROGRESS Observed: 05/21/2017 Status: COMPLETED Source: [place] 3:41 PM [facility] REPOSITORY O ID: [id number] Author: Suki Cary (Zackary) JESICA Figueroa Service: (none) Author Type: Nurse Practitioner Type: Progress Notes Filed: 05/21/2017 3:48 PM Note Text: Subjective HPI Patient presents with: Cough: with congestion X 3 day Hx of asthma Denies any otc treatment for symptoms. Using inhaler with minimal relief. Review of Systems Constitutional: Negative for chills, fever and malaise/fatigue. HENT: Positive for congestion and sore throat. Negative for ear pain. Eyes: Negative for discharge and redness. Respiratory: Positive for cough (worse at night), sputum production (yellow) and wheezing. Negative for hemoptysis and shortness of breath. Gastrointestinal: Negative for abdominal pain, diarrhea, nausea and vomiting. Skin: Negative for rash. Neurological: Negative for headaches. PAST MEDICAL HISTORY Diagnosis Date - Abnormal glandular Papanicolaou smear of cervix Abn. Pap smear (cervix) - Acute gastritis without mention of hemorrhage - Allergic rhinitis, seasonal - Anxiety 07/07/2012 - Depression 07/07/2012 - Dysphagia, unspecified(787.20) - Esophageal stenosis - GERD without esophagitis 12/10/2015 - Hyperlipidemia, mixed 11/01/2014 - Migraine, unspecified, with intractable migraine, so stated, without mention of status migrainosus Migraine - Moderate intermittent asthma without complication seasonal - Obesity (BMI 35.0-39.9 without comorbidity) 06/06/2013 - LITO (obstructive sleep apnea) 01/22/2015 Has a CPAP - Other constipation - Unspecified asthma(493.90) seasonal PAST SURGICAL HISTORY Procedure Laterality Date - BREAST BIOPSY W/ULTRASOUND GUIDANCE Left 05/03/15 U/S Needle core upper mid left breast - BREAST REDUCTION 09/2016 - CERVIX UTERI CONIZA LP ELCTRO EXCI 1993 LEEP-Cervix - DELIVERY ONLY 11/19 [facility] - COLONOSCOP W/ OR W/O [facility] SPEC 2003 Colonoscopy - COLONOSCOP W/ OR W/O BRS SPEC 08/21/2008 Colonoscopy - COLONOSCOP W/ OR W/O [facility] SPEC 11-05-26 - EGD 1991 REMOVAL OF FOREIGN BODY - EGD W/O BRS SPECIMEN W/BX 06/12/08 - EGD W/O OR W/BRUSH/WASH 05/16/2017 EGD - ESOPH W/O [facility] SPEC BALLOON DIL 06/12/08 - REMOVAL ADENOIDS,PRIMARY,<12 Y/O Adenoidectomy - REMOVAL OF TONSILS,<12 Y/O Tonsillectomy ALLERGIES Review of patient's allergies indicates no known allergies. MEDICATIONS predniSONE (DELTASONE) 20 mg tablet three tablets po daily for two days, then two tablets po daily for two days, then one tablet daily for two days, then stop buPROPion SR (ZYBAN SR; WELLBUTRIN SR) 150 mg 12 hr tablet Take 1 tablet by mouth twice daily. fluticasone-salmeterol (ADVAIR DISKUS) 250-50 mcg/dose dsdv Inhale 1 Puff as instructed twice daily. Rinse and gargle mouth after use with water. apremilast (OTEZLA) 30 mg tablet Take 1 tablet by mouth once daily. Per derm pantoprazole DR (PROTONIX) 40 mg tablet take 1 tablet by mouth once daily 1/2 HOUR BEFORE BREAKFAST albuterol HFA (VENTOLIN HFA) 90 mcg/actuation inhaler Inhale 2 Puffs as instructed every 4 hours as needed. Do no substitute with ProAir. CPAP Initiate AutoPAP @ 5-15 cm of water with humidification. Mask (per patient preference) optional chin strap (if indicated), filters, tubing / heated tubing, heated humidity and lifetime supplies. Dx. LITO G47.33 327.23 Cholecalciferol, Vitamin D3, (VITAMIN D) 1,000 unit tab Take 1,000 Units by mouth once daily. L. RHAMNOSUS GG/INULIN (CULTURELLE PROBIOTICS ORAL) Take by mouth. FAMILY HISTORY Problem Relation Age of Onset - Asthma Mother - Hypertension Father - Colon Cancer Father Colon polyps - Colon Cancer Maternal Grandfather - Colon Cancer Paternal Grandfather - Blood Disease Sister - Asthma Brother Social History Substance Use Topics - Smoking status: Former Smoker Years: 15.00 Types: Cigarettes Quit date: 07/12/2006 - Smokeless tobacco: Never Used Comment: SOCIAL SMOKER IN PAST - Alcohol use Yes Comment: rare,NOT WHILE Objective Physical Exam Constitutional: She is well-developed, well-nourished, and in no distress. HENT: Head: Normocephalic. Right Ear: Tympanic membrane, external ear and ear canal normal. Left Ear: Tympanic membrane, external ear and ear canal normal. Nose: Rhinorrhea present. Right sinus exhibits no maxillary sinus tenderness and no frontal sinus tenderness. Left sinus exhibits no maxillary sinus tenderness and no frontal sinus tenderness. Mouth/Throat: Posterior oropharyngeal erythema (PND) present. Eyes: Conjunctivae are normal. Neck: Normal range of motion. Neck supple. Cardiovascular: Normal rate, regular rhythm and normal heart sounds. Pulmonary/Chest: Effort normal. No respiratory distress. She has no decreased breath sounds. She has wheezes (fine exp wheeze). She has rhonchi (faint scattered rhonchi, cleared with cough, good air exchange). She has no rales. Abdominal: Soft. She exhibits no distension. There is no tenderness. Lymphadenopathy: She has no cervical adenopathy. Skin: Skin is warm and dry. No rash noted. Nursing note and vitals reviewed. ASSESSMENT/PLAN: 1. Exacerbation of asthma, unspecified asthma severity, unspecified whether persistent - ICD9: 493.92, ICD10: J45.901 - Continue current meds - Exacerbation treatment of Prednisone burst with long taper- see orders - Avoidance of triggers recommended - Follow up in 3-5 days or sooner with PCP if symptoms are not improving or worsening Prescription instructions reviewed with patient as applicable. Patient advised if symptoms do not improve or if symptoms worsen sooner, to contact their primary care physician. Potential red flag symptoms discussed with the patient. Reviewed appropriate action plan to take if red flag symptoms occur. Patient agreeable to treatment plan. Suki Figueroa CNP CNOV Observed: 05/21/2017 Status: COMPLETED Source: [place] 3:15 PM [facility] REPOSITORY Office Visit ([facility]) CHIKA GOOD ([id number]) 1970 F [facility] Date Time Provider Department 05/21/17 3:15 PM SUKI FIGUEROA (CENTRAL STERILE TECHNICIAN) [facility] During your visit today, we recorded the following information about you: Temperature Pulse Respiration Blood pressure 98.8 degrees 97/minute 20/minute 98/66 Suki Figueroa CNP, CNP 05/21/2017 3:48 PM Signed Subjective HPI Patient presents with: Cough: with congestion X 3 day Hx of asthma Denies any otc treatment for symptoms. Using inhaler with minimal relief. Review of Systems Constitutional: Negative for chills, fever and malaise/fatigue. HENT: Positive for congestion and sore throat. Negative for ear pain. Eyes: Negative for discharge and redness. Respiratory: Positive for cough (worse at night), sputum production (yellow) and wheezing. Negative for hemoptysis and shortness of breath. Gastrointestinal: Negative for abdominal pain, diarrhea, nausea and vomiting. Skin: Negative for rash. Neurological: Negative for headaches. PAST MEDICAL HISTORY Diagnosis Date - Abnormal glandular Papanicolaou smear of cervix Abn. Pap smear (cervix) - Acute gastritis without mention of hemorrhage - Allergic rhinitis, seasonal - Anxiety 07/07/2012 - Depression 07/07/2012 - Dysphagia, unspecified(787.20) - Esophageal stenosis - GERD without esophagitis 12/10/2015 - Hyperlipidemia, mixed 11/01/2014 - Migraine, unspecified, with intractable migraine, so stated, without mention of status migrainosus Migraine - Moderate intermittent asthma without complication seasonal - Obesity (BMI 35.0-39.9 without comorbidity) 06/06/2013 - LITO (obstructive sleep apnea) 01/22/2015 Has a CPAP - Other constipation - Unspecified asthma(493.90) seasonal PAST SURGICAL HISTORY Procedure Laterality Date - BREAST BIOPSY W/ULTRASOUND GUIDANCE Left 05/03/15 U/S Needle core upper mid left breast - BREAST REDUCTION 09/2016 - CERVIX UTERI CONIZA LP ELCTRO EXCI 1993 LEEP-Cervix - DELIVERY ONLY 11/19 [facility] - COLONOSCOP W/ OR W/O [facility] SPEC 2003 Colonoscopy - COLONOSCOP W/ OR W/O [facility] SPEC 08/21/2008 Colonoscopy - COLONOSCOP W/ OR W/O [facility] SPEC 15 - EGD 1991 REMOVAL OF FOREIGN BODY - EGD W/O [facility] SPECIMEN W/BX 06/12/08 - EGD W/O OR W/BRUSH/WASH 05/16/2017 EGD - ESOPH W/O [facility] SPEC BALLOON DIL 06/12/08 - REMOVAL ADENOIDS,PRIMARY,ANDlt;13 Y/O Adenoidectomy - REMOVAL OF TONSILS,ANDlt;13 Y/O Tonsillectomy ALLERGIES Review of patient's allergies indicates no known allergies. MEDICATIONS predniSONE (DELTASONE) 20 mg tablet three tablets po daily for two days, then two tablets po daily for two days, then one tablet daily for two days, then stop buPROPion SR (ZYBAN SR; WELLBUTRIN SR) 150 mg 12 hr tablet Take 1 tablet by mouth twice daily. fluticasone-salmeterol (ADVAIR DISKUS) 250-50 mcg/dose dsdv Inhale 1 Puff as instructed twice daily. Rinse and gargle mouth after use with water. apremilast (OTEZLA) 30 mg tablet Take 1 tablet by mouth once daily. Per derm pantoprazole DR (PROTONIX) 40 mg tablet take 1 tablet by mouth once daily 1/2 HOUR BEFORE BREAKFAST albuterol HFA (VENTOLIN HFA) 90 mcg/actuation inhaler Inhale 2 Puffs as instructed every 4 hours as needed. Do no substitute with ProAir. CPAP Initiate AutoPAP @ 5-15 cm of water with humidification. Mask (per patient preference) optional chin strap (if indicated), filters, tubing / heated tubing, heated humidity and lifetime supplies. Dx. LITO G47.33 327.23 Cholecalciferol, Vitamin D3, (VITAMIN D) 1,000 unit tab Take 1,000 Units by mouth once daily. L. RHAMNOSUS GG/INULIN (CULTURELLE PROBIOTICS ORAL) Take by mouth. FAMILY HISTORY Problem Relation Age of Onset - Asthma Mother - Hypertension Father - Colon Cancer Father Colon polyps - Colon Cancer Maternal Grandfather - Colon Cancer Paternal Grandfather - Blood Disease Sister - Asthma Brother Social History Substance Use Topics - Smoking status: Former Smoker Years: 15.00 Types: Cigarettes Quit date: 07/12/2006 - Smokeless tobacco: Never Used Comment: SOCIAL SMOKER IN PAST - Alcohol use Yes Comment: rare,NOT WHILE Objective Physical Exam Constitutional: She is well-developed, well-nourished, and in no distress. HENT: Head: Normocephalic. Right Ear: Tympanic membrane, external ear and ear canal normal. Left Ear: Tympanic membrane, external ear and ear canal normal. Nose: Rhinorrhea present. Right sinus exhibits no maxillary sinus tenderness and no frontal sinus tenderness. Left sinus exhibits no maxillary sinus tenderness and no frontal sinus tenderness. Mouth/Throat: Posterior oropharyngeal erythema (PND) present. Eyes: Conjunctivae are normal. Neck: Normal range of motion. Neck supple. Cardiovascular: Normal rate, regular rhythm and normal heart sounds. Pulmonary/Chest: Effort normal. No respiratory distress. She has no decreased breath sounds. She has wheezes (fine exp wheeze). She has rhonchi (faint scattered rhonchi, cleared with cough, good air exchange). She has no rales. Abdominal: Soft. She exhibits no distension. There is no tenderness. Lymphadenopathy: She has no cervical adenopathy. Skin: Skin is warm and dry. No rash noted. Nursing note and vitals reviewed. ASSESSMENT/PLAN: 1. Exacerbation of asthma, unspecified asthma severity, unspecified whether persistent - ICD9: 493.92, ICD10: J45.901 - Continue current meds - Exacerbation treatment of Prednisone burst with long taper- see orders - Avoidance of triggers recommended - Follow up in 3-5 days or sooner with PCP if symptoms are not improving or worsening Prescription instructions reviewed with patient as applicable. Patient advised if symptoms do not improve or if symptoms worsen sooner, to contact their primary care physician. Potential red flag symptoms discussed with the patient. Reviewed appropriate action plan to take if red flag symptoms occur. Patient agreeable to treatment plan. Suki Figueroa CNP Referring Provider: SELF [[id number]] Allergies As of Date: 05/21/2017 (No Known Allergies) Date Reviewed: 05/21/2017 Reviewed by: Luna Garza LPN - Fully Assessed Reason for Visit: Cough [28] Cmt: with congestion X 3 day Primary Visit Diagnosis:Exacerbation of asthma, unspecified asthma severity, unspecified whether persistent [J45.901] Order(s):predniSONE (DELTASONE) 10 mg tabletTake 4 tabs daily for 3 days, then 2 tabs daily for 3 days, then 1 tab daily for 3 days with food.Disp: 21 tabletRfl: 0 Tpxadlurffhzekv-Pyrkzsits-RO (BROMFED DM) 2-30-10 mg/5 mL syrupTake 10 mL by mouth four times daily as needed for up to 7 days.Disp: 240 mLRfl: 0 Prescriptions as of 05/21/2017 Sig: PREDNISONE 10 MG TABLET Take 4 tabs daily for 3 days,* BROMPHENIRAMINE-PSEUDOEPHEDRI* Take 10 mL by mouth four time* BUPROPION HCL SR 150 MG TABLE* Take 1 tablet by mouth twice * FLUTICASONE 250 MCG-SALMETERO* Inhale 1 Puff as instructed t* APREMILAST 30 MG TABLET Take 1 tablet by mouth once d* PANTOPRAZOLE 40 MG TABLET,DEL* take 1 tablet by mouth once d* ALBUTEROL SULFATE HFA 90 MCG/* Inhale 2 Puffs as instructed * CPAP Initiate AutoPAP @ 5-15 cm of* CHOLECALCIFEROL (VITAMIN D3) * Take 1,000 Units by mouth onc* CULTURELLE PROBIOTICS ORAL Take by mouth. Medication notes this encounter PREDNISONE 20 MG TABLET >> Luna Garza LPN 05/21/2017 3:20 PM >> LUNA GARZA LPN Sat May 21, 2017 3:20 PM Not taking Problem List As Of Date 05/21/2017 Noted Resolved ADVANCED MATERNAL AGE:MULTIPARA[659.63] [O09.52*INVALID FOR*04/19/2007 AMA PRIMIGRAVID-ANTEPARTUM [O09.519] INVALID FOR*11/21/2007 Family history of malignant neoplasm of gastroi* Priority: F Moderate intermittent asthma without complicati* Priority: A More... Allergic rhinitis, seasonal [J30.2] Priority: B Anxiety [F41.9] INVALID FOR* Priority: A Depression [F32.9] INVALID FOR* Priority: A Obesity (BMI 35.0-39.9 without comorbidity) [E6*INVALID FOR* Priority: B Hyperlipidemia, mixed [E78.2] INVALID FOR* Priority: A LITO (obstructive sleep apnea) [G47.33] INVALID FOR* Priority: B More... Abnormal mammogram [R92.8] INVALID FOR* Priority: C Psoriasis [L40.9] INVALID FOR* Priority: D GERD without esophagitis [K21.9] INVALID FOR* Priority: A Upper back pain [M54.9] INVALID FOR* Neck pain [M54.2] INVALID FOR* Headache [R51] INVALID FOR* Large breasts [N62] INVALID FOR* Encounter for screening for diabetes mellitus [*INVALID FOR* Functional dyspepsia [K30] INVALID FOR* More... Gastroesophageal reflux disease [K21.9] INVALID FOR* More... Prescriptions ordered this encounter Disp Refills Start End PREDNISONE 10 MG TABLET 21 t* 0 05/21/2017 05/30/2017 Sig: Take 4 tabs daily for 3 days, then 2 tabs daily for 3 days, then 1 tab daily for 3 days with food. [id number] 2* 240 * 0 05/21/2017 05/28/2017 Route: ORAL Sig: Take 10 mL by mouth four times daily as needed for up to 7 days. Medications Discontinued During This Encounter predniSONE (DELTASONE) 20 mg tablet 12 t* 0 05/01/2017 05/21/2017 Sig: three tablets po daily for two days, then two tablets po daily for two days, then one tablet daily for two days, then stop Disc: Reason for discontinue is not on file. Disposition: Return if symptoms worsen or fail to improve. Follow-up and Disposition History Recorded Encounter Status:Closed by SUKI FIGUEROA on 05/21/17 NURSING PROG Observed: 05/16/2017 Status: COMPLETED Source: [place] 5:00 PM [facility] REPOSITORY HNO ID: [id number] Author: Caprice Samuel RN Service: (none) Author Type: Registered Nurse Type: Nursing Progress Note Filed: 05/16/2017 5:06 PM Note Text: Patient did not experience a fall prior to discharge. Patient did not experience a burn prior to discharge. Caprice Samuel RN PT ED Observed: 05/16/2017 Status: COMPLETED Source: [place] 4:57 PM [facility] REPOSITORY HNO ID: [id number] Author: Caprice Samuel RN Service: (none) Author Type: Registered Nurse Type: Patient Education Filed: 05/16/2017 5:04 PM Note Text: POST OP LEARNING RESPONSE INSTRUCTION PROVIDED TO: Patient and family member METHOD OF INSTRUCTION: Individual instruction Written instruction - handouts Verbal instruction PATIENT / FAMILY RESPONSE: Information received as demonstrated by interest and questions FOLLOW-UP PLAN: Follow up phone call. Contact information given. Followup appointment (given) SUPPLEMENTAL MATERIAL: Procedure discharge instructions REFERRAL (RECOMMENDATION): None Electronically Signed By: Caprice Samuel RN In Department: AMBULATORY SURGERY NURSING PROG Observed: 05/16/2017 Status: COMPLETED Source: [place] 4:15 PM [facility] REPOSITORY HNO ID: [id number] Author: Caprice Samuel RN Service: (none) Author Type: Registered Nurse Type: Nursing Progress Note Filed: 05/16/2017 5:07 PM Note Text: Arrived in phase II via cart. Left lateral position. Sedated, but responds to verbal stimuli. Color normal; skin warm and dry. Respirations wnl and unlabored. Abdomen soft and with + bowel sounds in quads X 4. Family at bedside. Patient resting comfortably. Dr. Alvarez at bedside to review procedure and recommendations. Caprice Samuel RN NURSING PROG Observed: 05/16/2017 Status: COMPLETED Source: [place] 4:12 PM [facility] REPOSITORY HNO ID: [id number] Author: Neelam Demarco RN Service: (none) Author Type: Registered Nurse Type: Nursing Progress Note Filed: 05/16/2017 4:12 PM Note Text: Patient did not experience a fall within the Intraoperative area. Patient did not experience a burn within the Intraoperative area. Neelam Demarco RN HISTORY PHYSICAL Observed: 05/16/2017 Status: COMPLETED Source: [place] 3:54 PM [facility] REPOSITORY HNO ID: [id number] Author: Abdulaziz Alvarez Service: Gastroenterology Author Type: Physician Type: HANDP Filed: 05/16/2017 3:54 PM Note Text: UPDATED HISTORY AND PHYSICAL EXAMINATION SERVICE DATE: 05/16/2017 SERVICE TIME: 3:54 PM PHYSICAL EXAM MUST BE COMPLETED ON ADMISSION The History and Physical (completed in the past 30 days) has been reviewed and the patient has been examined. The contents accurately reflect the patient's condition with the following additions or revisions since the HANDP was completed. Examination indicates no changes. This HANDP can be found in the Electronic Medical Record dated 05/12/17. SIGNATURE: Abdulaziz Alvarez MD PATIENT NAME: Chika Good DATE: May 16, 2017 TIME: 3:54 PM PAGER: NURSING PROG Observed: 05/16/2017 Status: COMPLETED Source: [place] 3:44 PM [facility] REPOSITORY HNO ID: [id number] Author: Paige AndersonRnValentina Luna RN Service: (none) Author Type: Registered Nurse Type: Nursing Progress Note Filed: 05/16/2017 4:17 PM Note Text: [facility] PRE-OP NURSING HAND OFF NOTE SBAR Hand off given to Teresa Miguel RN. Hand off was communicated verbally and at the patient's bedside and all questions were answered. FALLS/IGNACIO Patient did not experience a fall within the Preoperative area. Patient did not experience a burn within the Preoperative area. Paige Luna RN NURSING PROG Observed: 05/16/2017 Status: COMPLETED Source: [place] 3:20 PM [facility] REPOSITORY HNO ID: [id number] Author: Aranza AndersonRn) KWAME Block Service: Nursing Author Type: Registered Nurse Type: Nursing Progress Note Filed: 05/16/2017 3:20 PM Note Text: [facility] PRE-OP NURSING HAND OFF NOTE SBAR Hand off given to Paige Luna RN. Hand off was communicated verbally and at the patient's bedside and all questions were answered. Aranza Block RN PT ED Observed: 05/16/2017 Status: COMPLETED Source: [place] 3:15 PM [facility] REPOSITORY HNO ID: [id number] Author: Aranza Jaquez (Rn) KWAME Block Service: Nursing Author Type: Registered Nurse Type: Patient Education Filed: 05/16/2017 3:15 PM Note Text: PRE OP LEARNING ASSESSMENT PROCEDURE/SURGERY: GI PROCEDURES: EGD READINESS TO LEARN COGNITIVE ABILITY: Alert and oriented MOTIVATION TO LEARN: Eager FAMILY SUPPORT: High - Very involved in pt care PATIENT LEARNS BEST BY: Multiple Methods FACTORS AFFECTING LEARNING: None PHYSICAL LIMITATIONS AFFECTING LEARNING: None Electronically Signed By: Aranza Block RN In Department: AMBULATORY SURGERY SURGICAL PATHOLOGY Observed: 05/16/2017 Status: F Source: [place] 12:00 AM [facility] REPOSITORY Specimen originated from [facility] Specimen #: [id number] Submitting Physician: ABDULAZIZ ALVAREZ MD FINAL DIAGNOSIS Gastric antrum, biopsy - Gastric body-type mucosa with mild chronic inactive gastritis and focal foveolar hyperplasia. - No morphologic evidence of H. pylori organisms. MARTHA/anthony 05/19/2017 Teresa Suggs M.D. (Electronic Signature) SPECIMEN SUBMITTED A: ANTRUM, BIOPSY CLINICAL DATA K30, K21.9 GROSS DESCRIPTION A. Received in formalin are two pieces of varma, soft tissue aggregating to 0.7 x 0.2 x 0.2 cm. Totally submitted in one cassette. Gross examination performed at [facility], [address] [place] [address] 05/18/2017 1:36:32 AM Date of Report: 05/19/2017 Date of Procedure: 05/16/2017 Date of Receipt: 05/17/2017 Submitted by: ABDULAZIZ ALVAREZ MD Location: 010 Diagnostic interpretation performed at [facility], [address] [place] [address], [place] [address]. HISTORY PHYSICAL Observed: 05/12/2017 Status: COMPLETED Source: [place] 4:12 PM [facility] REPOSITORY HNO ID: [id number] Author: Diana (Zackary) Manuel Service: (none) Author Type: Nurse Practitioner Type: HANDP Filed: 05/12/2017 4:52 PM Note Text: Chika Montesinos Good a 46 year old female who is a consultation requested by Dr. Javed for an opinion regarding dysphagia and GERD. My final recommendations will be communicated back to the requesting physician by way of shared Medical record. The patient has been seen previously. The patient was seen by Dr. Javed on 03/31/17, leading to this consultation. That note has been reviewed and part as follows: Doing ok with the protonix but gets breakthrough of symptoms 2-3 days a week. Has again started to notice some dysphagia of solids. The patient was seen by Dr. Pearl for upper endoscopy 06/13/08. The procedure report has been reviewed and findings as follows: Summary: While there is no evidence of esophagits, there is a benign appearing stricture at the level of the GE junction. After the EGD was completed, the instrument was repositioned and dilatation was carried out using the 18 mm balloon. There is a small hiatal hernia. There is also a diffuse mild gastrits - no biopsies were required. Bxs for HP were done. Normal duodenum. Presenting complaint: The patient presents today reporting terrible regurgitation and water brash. She is taking pantoprazole in the morning. She states if it gets bad an night, I'll take Zantac. She will cut the Zantac in half. She also admits that she doesn't have to be laying down to have reflux. Usually has dinner about 5:30-6:00. Doesn't usually eat a snack, but does drink tea or wine in the evening. She heads to bed about 10:30-11:30, sleeping with the head of the bed flat. We discussed the need to elevate the head of the bed and other lifestyle modifications. The patient also says sometimes when I lay down, I feel a pressure in my throat. The patient reports that food never goes down smoothly. She tells me that she drinks a lot of water with her meals, to move the food bolus down. The patient denies change in bowel habits, rectal bleeding or abdominal pain. Having a bowel movement regularly. REVIEW OF SYSTEMS: GENERAL: No weight loss, malaise or fevers HEENT:Reports frequent headaches for which she takes Ibuprofen (maybe 4 tablets, 4 times a week). Also reports vision changes. NECK: Positive for a sensation of pressure in her throat when supine. RESPIRATORY: Asthma. CARDIOVASCULAR: Negative for chest pain, leg swelling, hypertension, CHF or palpitations GI: The patient states that her appetite has been adequate. She does get hungry. There has been no nausea, no vomiting. She admits to dysphagia and denies odynophagia. There has been indigestion with heartburn. There has been regurgitation. Bowel habits have been regular. There has not been new or worsening diarrhea. There has not been constipation. The patient denies rectal bleeding. There has not been melena. No abdominal pain. PSYCH: Positive for anxiety: taking Wellbutrin with good effect. HEMATOLOGY/LYMPHOLOGY Negative for prolonged bleeding, bruising easily or swollen nodes ENDOCRINE: Negative for thyroid or diabetes. NEURO: Migraine headaches All other reviewed and negative other than HPI. PAST MEDICAL HISTORY Diagnosis Date - Abnormal glandular Papanicolaou smear of cervix Abn. Pap smear (cervix) - Acute gastritis without mention of hemorrhage - Allergic rhinitis, seasonal - Anxiety 07/07/2012 - Depression 07/07/2012 - Dysphagia, unspecified(787.20) - Esophageal stenosis - GERD without esophagitis 12/10/2015 - Hyperlipidemia, mixed 11/01/2014 - Migraine, unspecified, with intractable migraine, so stated, without mention of status migrainosus Migraine - Moderate intermittent asthma without complication seasonal - Obesity (BMI 35.0-39.9 without comorbidity) 06/06/2013 - LITO (obstructive sleep apnea) 01/22/2015 Has a CPAP - Other constipation - Unspecified asthma(493.90) seasonal PAST SURGICAL HISTORY Procedure Laterality Date - BREAST BIOPSY W/ULTRASOUND GUIDANCE Left 05/03/15 U/S Needle core upper mid left breast - BREAST REDUCTION 09/2016 - CERVIX UTERI CONIZA LP ELCTRO EXCI 1993 LEEP-Cervix - DELIVERY ONLY 11/19 [facility] - COLONOSCOP W/ OR W/O [facility] SPEC 2003 Colonoscopy - COLONOSCOP W/ OR W/O [facility] SPEC 08/21/2008 Colonoscopy - COLONOSCOP W/ OR W/O [facility] SPEC 11-3-15 - EGD 1991 REMOVAL OF FOREIGN BODY - EGD W/O [facility] SPECIMEN W/BX 06/12/08 - ESOPH W/O [facility] SPEC BALLOON DIL 06/12/08 - REMOVAL ADENOIDS,PRIMARY,<12 Y/O Adenoidectomy - REMOVAL OF TONSILS,<12 Y/O Tonsillectomy FAMILY HISTORY Problem Relation Age of Onset - Asthma Mother - Hypertension Father - Colon Cancer Father Colon polyps - Colon Cancer Maternal Grandfather - Colon Cancer Paternal Grandfather - Blood Disease Sister - Asthma Brother Current Outpatient Prescriptions: predniSONE (DELTASONE) 20 mg tablet three tablets po daily for two days, then two tablets po daily for two days, then one tablet daily for two days, then stop Disp: 12 tablet Rfl: 0 buPROPion SR (ZYBAN SR; WELLBUTRIN SR) 150 mg 12 hr tablet Take 1 tablet by mouth twice daily. Disp: 60 tablet Rfl: 5 fluticasone-salmeterol (ADVAIR DISKUS) 250-50 mcg/dose dsdv Inhale 1 Puff as instructed twice daily. Rinse and gargle mouth after use with water. Disp: 3 Inhaler Rfl: 1 apremilast (OTEZLA) 30 mg tablet Take 1 tablet by mouth once daily. Per derm Disp: Rfl: pantoprazole DR (PROTONIX) 40 mg tablet take 1 tablet by mouth once daily 1/2 HOUR BEFORE BREAKFAST Disp: 90 tablet Rfl: 3 albuterol HFA (VENTOLIN HFA) 90 mcg/actuation inhaler Inhale 2 Puffs as instructed every 4 hours as needed. Do no substitute with ProAir. Disp: 1 Inhaler Rfl: 5 CPAP Initiate AutoPAP @ 5-15 cm of water with humidification. Mask (per patient preference) optional chin strap (if indicated), filters, tubing / heated tubing, heated humidity and lifetime supplies. Dx. LITO G47.33 327.23 Disp: 1 Device Rfl: 0 Cholecalciferol, Vitamin D3, (VITAMIN D) 1,000 unit tab Take 1,000 Units by mouth once daily. Disp: Rfl: L. RHAMNOSUS GG/INULIN (CULTURELLE PROBIOTICS ORAL) Take by mouth. Disp: Rfl: No current facility-administered medications for this visit. SOCIAL HISTORY: Patient is . She quit smoking in 2006 and reports her alcohol use as occasionally. PHYSICAL EXAMINATION: Blood pressure 110/75, pulse 86, height 160 cm (5' 3), weight 97.5 kg (215 lb), last menstrual period 04/29/2017. General Appearance: Well appearing, alert, in no acute distress, well-hydrated, well nourished. Skin: Skin color, texture, turgor normal, no suspicious rashes or lesions. Eyes: Anicteric sclera. . Oropharynx: Lips, mucosa, and tongue normal, teeth and gums normal, oropharynx normal. Neck: Supple, no adenopathy; thyroid symmetric, normal size. Lungs: Lungs clear to auscultation. No wheezing, rhonchi, rales. Heart: RRR without murmur. Abdomen: Abdomen soft, non-tender. Bowel sounds normal. No masses, organomegaly. Extremities: No deformities, edema. Impression: GERD 2)dyspepsia Plan: The patient is scheduled for upper endoscopy. Preparation for the procedure and the procedure itself have been explained in detail. The risks, benefits, anticipated outcomes and possible complications were mentioned. I also explained the procedure in understandable terms and the patient was given printed material concerning the planned procedure. The patient had the opportunity to ask questions concerning the planned procedure. The patient freely consents to the planned procedure. The patient is encouraged to avoid drinking wine in the evening. Also recommended elevating the head of the bed 6 inches and weight loss. The patient is asked to call with any questions or concerns, or if there is a change in health status between now and the scheduled procedure. I have personally interviewed and examined this patient. I have read the information that the MA documented in this encounter. This visit was at least 30 minutes in length with a majority of the time spent in review of the past records with the patient, discussion and counseling. Diana Jackson RN CLIMATE CHANGE ANALYST CNOV Observed: 05/12/2017 Status: COMPLETED Source: [place] 4:00 PM [facility] REPOSITORY Office Visit ([facility]) CHIKA GOOD ([id number]) 1970 F [facility] Date Time Provider Department 05/12/17 4:00 PM DIANA JACKSON (CENTRAL STERILE TECHNICIAN) [facility] During your visit today, we recorded the following information about you: Pulse Blood pressure Weight Height 86/minute 110/75 97.5 kg 1.6 m Last Period 04/29/17 Diana Jackson RN CLIMATE CHANGE ANALYST 05/12/2017 4:52 PM Signed Chika Good a 46 year old female who is a consultation requested by Dr. Javed for an opinion regarding dysphagia and GERD. My final recommendations will be communicated back to the requesting physician by way of shared Medical record. The patient has been seen previously. The patient was seen by Dr. Javed on 03/31/17, leading to this consultation. That note has been reviewed and part as follows: Doing ok with the protonix but gets breakthrough of symptoms 2-3 days a week. Has again started to notice some dysphagia of solids. The patient was seen by Dr. Pearl for upper endoscopy 06/13/08. The procedure report has been reviewed and findings as follows: Summary: While there is no evidence of esophagits, there is a benign appearing stricture at the level of the GE junction. After the EGD was completed, the instrument was repositioned and dilatation was carried out using the 18 mm balloon. There is a small hiatal hernia. There is also a diffuse mild gastrits - no biopsies were required. Bxs for HP were done. Normal duodenum. Presenting complaint: The patient presents today reporting terrible regurgitation and water brash. She is taking pantoprazole in the morning. She states ANDquot;if it gets bad an night, I'll take ZantacANDquot;. She will cut the Zantac in half. She also admits that she doesn't have to be laying down to have reflux. Usually has dinner about 5:30-6:00. Doesn't usually eat a snack, but does drink tea or wine in the evening. She heads to bed about 10:30- 11:30, sleeping with the head of the bed flat. We discussed the need to elevate the head of the bed and other lifestyle modifications. The patient also says ANDquot;sometimes when I lay down, I feel a pressure in my throatANDquot;. The patient reports that food never goes down smoothly. She tells me that she drinks a lot of water with her meals, to move the food bolus down. The patient denies change in bowel habits, rectal bleeding or abdominal pain. Having a bowel movement regularly. REVIEW OF SYSTEMS: GENERAL: No weight loss, malaise or fevers HEENT:Reports frequent headaches for which she takes Ibuprofen (maybe 4 tablets, 4 times a week). Also reports vision changes. NECK: Positive for a sensation of pressure in her throat when supine. RESPIRATORY: Asthma. CARDIOVASCULAR: Negative for chest pain, leg swelling, hypertension, CHF or palpitations GI: The patient states that her appetite has been adequate. She does get hungry. There has been no nausea, no vomiting. She admits to dysphagia and denies odynophagia. There has been indigestion with heartburn. There has been regurgitation. Bowel habits have been regular. There has not been new or worsening diarrhea. There has not been constipation. The patient denies rectal bleeding. There has not been melena. No abdominal pain. PSYCH: Positive for anxiety: taking Wellbutrin with good effect. HEMATOLOGY/LYMPHOLOGY Negative for prolonged bleeding, bruising easily or swollen nodes ENDOCRINE: Negative for thyroid or diabetes. NEURO: Migraine headaches All other reviewed and negative other than HPI. PAST MEDICAL HISTORY Diagnosis Date - Abnormal glandular Papanicolaou smear of cervix Abn. Pap smear (cervix) - Acute gastritis without mention of hemorrhage - Allergic rhinitis, seasonal - Anxiety 07/07/2012 - Depression 07/07/2012 - Dysphagia, unspecified(787.20) - Esophageal stenosis - GERD without esophagitis 12/10/2015 - Hyperlipidemia, mixed 11/01/2014 - Migraine, unspecified, with intractable migraine, so stated, without mention of status migrainosus Migraine - Moderate intermittent asthma without complication seasonal - Obesity (BMI 35.0-39.9 without comorbidity) 06/06/2013 - LITO (obstructive sleep apnea) 01/22/2015 Has a CPAP - Other constipation - Unspecified asthma(493.90) seasonal PAST SURGICAL HISTORY Procedure Laterality Date - BREAST BIOPSY W/ULTRASOUND GUIDANCE Left 05/03/15 U/S Needle core upper mid left breast - BREAST REDUCTION 09/2016 - CERVIX UTERI CONIZA LP ELCTRO EXCI 1993 LEEP-Cervix - DELIVERY ONLY 11/19 [facility] - COLONOSCOP W/ OR W/O [facility] SPEC 2003 Colonoscopy - COLONOSCOP W/ OR W/O [facility] SPEC 08/21/2008 Colonoscopy - COLONOSCOP W/ OR W/O [facility] SPEC 15 - EGD 1991 REMOVAL OF FOREIGN BODY - EGD W/O [facility] SPECIMEN W/BX 06/12/08 - ESOPH W/O [facility] SPEC BALLOON DIL 06/12/08 - REMOVAL ADENOIDS,PRIMARY,ANDlt;12 Y/O Adenoidectomy - REMOVAL OF TONSILS,ANDlt;12 Y/O Tonsillectomy FAMILY HISTORY Problem Relation Age of Onset - Asthma Mother - Hypertension Father - Colon Cancer Father Colon polyps - Colon Cancer Maternal Grandfather - Colon Cancer Paternal Grandfather - Blood Disease Sister - Asthma Brother Current Outpatient Prescriptions: predniSONE (DELTASONE) 20 mg tablet three tablets po daily for two days, then two tablets po daily for two days, then one tablet daily for two days, then stop Disp: 12 tablet Rfl: 0 buPROPion SR (ZYBAN SR; WELLBUTRIN SR) 150 mg 12 hr tablet Take 1 tablet by mouth twice daily. Disp: 60 tablet Rfl: 5 fluticasone-salmeterol (ADVAIR DISKUS) 250-50 mcg/dose dsdv Inhale 1 Puff as instructed twice daily. Rinse and gargle mouth after use with water. Disp: 3 Inhaler Rfl: 1 apremilast (OTEZLA) 30 mg tablet Take 1 tablet by mouth once daily. Per derm Disp: Rfl: pantoprazole DR (PROTONIX) 40 mg tablet take 1 tablet by mouth once daily 1/2 HOUR BEFORE BREAKFAST Disp: 90 tablet Rfl: 3 albuterol HFA (VENTOLIN HFA) 90 mcg/actuation inhaler Inhale 2 Puffs as instructed every 4 hours as needed. Do no substitute with ProAir. Disp: 1 Inhaler Rfl: 5 CPAP Initiate AutoPAP @ 5-15 cm of water with humidification. Mask (per patient preference) optional chin strap (if indicated), filters, tubing / heated tubing, heated humidity and lifetime supplies. Dx. LITO G47.33 327.23 Disp: 1 Device Rfl: 0 Cholecalciferol, Vitamin D3, (VITAMIN D) 1,000 unit tab Take 1,000 Units by mouth once daily. Disp: Rfl: L. RHAMNOSUS GG/INULIN (CULTURELLE PROBIOTICS ORAL) Take by mouth. Disp: Rfl: No current facility-administered medications for this visit. SOCIAL HISTORY: Patient is . She quit smoking in 2006 and reports her alcohol use as occasionally. PHYSICAL EXAMINATION: Blood pressure 110/75, pulse 86, height 160 cm (5' 3ANDquot;), weight 97.5 kg (215 lb), last menstrual period 04/29/2017. General Appearance: Well appearing, alert, in no acute distress, well-hydrated, well nourished. Skin: Skin color, texture, turgor normal, no suspicious rashes or lesions. Eyes: Anicteric sclera. . Oropharynx: Lips, mucosa, and tongue normal, teeth and gums normal, oropharynx normal. Neck: Supple, no adenopathy; thyroid symmetric, normal size. Lungs: Lungs clear to auscultation. No wheezing, rhonchi, rales. Heart: RRR without murmur. Abdomen: Abdomen soft, non-tender. Bowel sounds normal. No masses, organomegaly. Extremities: No deformities, edema. Impression: GERD 2)dyspepsia Plan: The patient is scheduled for upper endoscopy. Preparation for the procedure and the procedure itself have been explained in detail. The risks, benefits, anticipated outcomes and possible complications were mentioned. I also explained the procedure in understandable terms and the patient was given printed material concerning the planned procedure. The patient had the opportunity to ask questions concerning the planned procedure. The patient freely consents to the planned procedure. The patient is encouraged to avoid drinking wine in the evening. Also recommended elevating the head of the bed 6 inches and weight loss. The patient is asked to call with any questions or concerns, or if there is a change in health status between now and the scheduled procedure. I have personally interviewed and examined this patient. I have read the information that the MA documented in this encounter. This visit was at least 30 minutes in length with a majority of the time spent in review of the past records with the patient, discussion and counseling. Diana Jackson RN CLIMATE CHANGE ANALYST Diana Jackson RN CLIMATE CHANGE ANALYST 05/12/2017 4:46 PM Addendum Elevate the head of the bed 6 inches or get a wedge. Move up the wine to dinner or cut it out. Continue pantoprazole. Weight loss. Please follow the instructions for upper endoscopy. Your procedure will be with Dr. Alvarez on May 16. Referring Provider: CLARK JAVED [[id number]] Allergies As of Date: 05/12/2017 (No Known Allergies) Date Reviewed: 05/12/2017 Reviewed by: Dina Richmond MA - Fully Assessed Reason for Visit: consult EGD [Other] Primary Visit Diagnosis:Gastroesophageal reflux disease, esophagitis presence not specified [K21.9] Other Visit Diagnosis:Functional dyspepsia [K30] Order(s):EGD [5957590] Order #: [id number] FUTURE Prescriptions as of 05/12/2017 Sig: PREDNISONE 20 MG TABLET three tablets po daily for tw* BUPROPION HCL SR 150 MG TABLE* Take 1 tablet by mouth twice * FLUTICASONE 250 MCG-SALMETERO* Inhale 1 Puff as instructed t* APREMILAST 30 MG TABLET Take 1 tablet by mouth once d* PANTOPRAZOLE 40 MG TABLET,DEL* take 1 tablet by mouth once d* ALBUTEROL SULFATE HFA 90 MCG/* Inhale 2 Puffs as instructed * CPAP Initiate AutoPAP @ 5-15 cm of* CHOLECALCIFEROL (VITAMIN D3) * Take 1,000 Units by mouth onc* CULTURELLE PROBIOTICS ORAL Take by mouth. Problem List As Of Date 05/12/2017 Noted Resolved ADVANCED MATERNAL AGE:MULTIPARA[659.63] [O09.52*INVALID FOR*04/19/2007 AMA PRIMIGRAVID-ANTEPARTUM [O09.519] INVALID FOR*11/21/2007 Family history of malignant neoplasm of gastroi* Priority: F Moderate intermittent asthma without complicati* Priority: A More... Allergic rhinitis, seasonal [J30.2] Priority: B Anxiety [F41.9] INVALID FOR* Priority: A Depression [F32.9] INVALID FOR* Priority: A Obesity (BMI 35.0-39.9 without comorbidity) [E6*INVALID FOR* Priority: B Hyperlipidemia, mixed [E78.2] INVALID FOR* Priority: A LITO (obstructive sleep apnea) [G47.33] INVALID FOR* Priority: B More... Abnormal mammogram [R92.8] INVALID FOR* Priority: C Psoriasis [L40.9] INVALID FOR* Priority: D GERD without esophagitis [K21.9] INVALID FOR* Priority: A Upper back pain [M54.9] INVALID FOR* Neck pain [M54.2] INVALID FOR* Headache [R51] INVALID FOR* Large breasts [N62] INVALID FOR* Encounter for screening for diabetes mellitus [*INVALID FOR* Functional dyspepsia [K30] INVALID FOR* More... Gastroesophageal reflux disease [K21.9] INVALID FOR* More... Other instructions from your clinician: Elevate the head of the bed 6 inches or get a wedge. Move up the wine to dinner or cut it out. Continue pantoprazole. Weight loss. Please follow the instructions for upper endoscopy. Your procedure will be with Dr. Alvarez on May 16. Follow-up and Disposition History Recorded Encounter Status:Closed by DIANA JACKSON CNP on 05/12/17 HOSP Observed: 05/12/2017 Status: COMPLETED Source: [place] 12:00 AM [facility] REPOSITORY Patient:Chika Good MRN: <[id number]> Height:5' 3(1.6 m) Weight:215 lb (97.523 kg) Outpatient Medications as of 05/16/17: predniSONE (DELTASONE) 20 mg tablet buPROPion SR (ZYBAN SR; WELLBUTRIN SR) 150 mg 12 hr tablet fluticasone-salmeterol (ADVAIR DISKUS) 250-50 mcg/dose dsdv apremilast (OTEZLA) [address] (PROTONIX) 40 mg tablet albuterol HFA (VENTOLIN HFA) 90 mcg/actuation inhaler CPAP Cholecalciferol, Vitamin D3, (VITAMIN D) 1,000 unit tab L. RHAMNOSUS GG/INULIN (CULTURELLE PROBIOTICS ORAL) Admission/Clinic Administered Medications as of 05/16/17: lactated ringers infusion Problem List: Family history of malignant neoplasm of gastrointestinal tract [Z80.0] Moderate intermittent asthma without complication [J45.20] Allergic rhinitis, seasonal [J30.2] Anxiety [F41.9] Depression [F32.9] Obesity (BMI 35.0-39.9 without comorbidity) [E66.9] Hyperlipidemia, mixed [E78.2] LITO (obstructive sleep apnea) [G47.33] Abnormal mammogram [R92.8] Psoriasis [L40.9] GERD without esophagitis [K21.9] Upper back pain [M54.9] Neck pain [M54.2] Headache [R51] Large breasts [N62] Encounter for screening for diabetes mellitus [Z13.1] Functional dyspepsia [K30] Gastroesophageal reflux disease [K21.9] Allergies: No Known Allergies Date Verified:05/16/17 Lab Values No results within the last 30 days for the following basenames: K,HCT Progress Notes ([facility]): Dina Richmond MA 05/12/2017 4:51 PM Signed AMBULATORY PATIENT EDUCATION NOTE READINESS TO LEARN Cogntitive ability: Alert and oriented Motivation to learn: Interested Family support: Unable to assess - family not present Instruction provided to: Patient Patient learns best by: Individual instruction, written instruction (hand-outs), and verbal instruction. Factors affecting learning: None Physical limitations affecting learning: None LEARNING RESPONSE Diagnosis: Gastroesophageal reflux disease esophagitis presence not specified Education topic/teaching points: Upper Endoscopy METHOD OF INSTRUCTION:Teachback:Individual instruction, written instruction (hand-outs), and verbal instruction. Patient/family response: Verbalizes understanding of pre-procedure instructions. Follow-up plan: Complete - No need for follow-up Supplemental material: None Patient instructed to check insurance benefits and precertification.Patient instructed to bring in advanced directives if applicable. Referral Entered: No Does patient have a Pacemaker or Defibrillator? No Electronically Signed By: Dina Richmond MA In department: Gastroenterology Progress Notes ([facility]): Clark Fair CNP 05/01/2017 1:57 PM Signed This is an Express Care eVisit note for Chika Good eVisit/Questionnaire reviewed The chief complaint for the visit - Patient presents with: Cough Recommendations/Treatment plan - Rx as below plus self care. See My Chart Message to patient. Recommendation for follow up - PRN The following approved medication requests have been transmitted electronically. Signed Prescriptions Disp Refills predniSONE (DELTASONE) 20 mg tablet 12 tablet 0 Sig: three tablets po daily for two days, then two tablets po daily for two days, then one tablet daily for two days, then stop Clark Fair CNP PROGRESS Observed: 05/01/2017 Status: COMPLETED Source: [place] 1:56 PM [facility] REPOSITORY HNO ID: [id number] Author: Clark Fair Service: (none) Author Type: Nurse Practitioner Type: Progress Notes Filed: 05/01/2017 1:57 PM Note Text: This is an Express Care eVisit note for Chika Good eVisit/Questionnaire reviewed The chief complaint for the visit - Patient presents with: Cough Recommendations/Treatment plan - Rx as below plus self care. See My Chart Message to patient. Recommendation for follow up - PRN The following approved medication requests have been transmitted electronically. Signed Prescriptions Disp Refills predniSONE (DELTASONE) 20 mg tablet 12 tablet 0 Sig: three tablets po daily for two days, then two tablets po daily for two days, then one tablet daily for two days, then stop Clark Fair CNP ALLERGIES ALLERGIES DATE TYPE / CODE NAME / CODE REACTION SEVERITY SOURCE 11/01/2017 Drug No Known Unknown [facility] Allergy/416 Allergies/B80054 Hospital 579570(SNOM 0388(RXNORM) Repository ED CT) Drug NO KNOWN [facility] Class/42613 ALLERGIES [facility] 1003(SNOMED Repository CT) ENCOUNTERS ENCOUNTERS ADMIT/DISCHARGE ACCOUNT ADMITTING ENCOUNTER LOCATION SOURCE NUMBER CLASS 04/01/2018 [id number] [facility] ing:LAB.FUTUR Repository E 03/29/2018 [id number] [facility] ing:LAB Repository 03/28/2018 [id number] [facility] ing:CT Repository 03/24/2018/03/27/19 [id number] Ambulatory [address] Repository 03/15/2018/03/15/19 [id number] Ambulatory [address] Repository 11/01/2017/11/02/19 [id number] Ambulatory BMSBuilding:B Michelle [address] [facility] Repository 10/10/2017/10/13/19 [id number] Ambulatory [address] [place] Repository 08/29/2017/08/30/19 [id number] Ambulatory [address] ing:SDC Repository 08/29/2017 [id number] Ambulatory BMSBuilding:W [facility] Repository 08/28/2017/08/31/19 [id number] Ambulatory [address] Repository 06/28/2017 [id number] Ambulatory [facility] ing:POLAB3 Repository 06/28/2017/06/29/19 [id number] Ambulatory BMSBuilding:B Michelle [address] [facility] Repository 06/14/2017/06/16/19 [id number] Ambulatory [address] Repository 05/21/2017/05/24/19 [id number] Ambulatory [address] Repository 05/16/2017/05/17/19 [id number] ALV[place]Z, Ambulatory [address] Repository 05/12/2017/05/18/19 [id number] Ambulatory [address] Repository 04/13/2017 [id number] Ambulatory [facility] ing: Repository PAYERS PAYERS ENCOUNTER GUARANTOR PAYER SUBSCRIBER SOURCE 04/01/2018 HANNAH GOOD Primary [address]ANNAH [id number] Insurance:[place] [facility]: [id number] [facility] [address]Uwa: (085) [id number] Repository [phone] () Date:[id number] [address]VQ: 04/01/2018 Secondary NOT GIVENUNK Michelle Insurance:SELF PAY [facility] Number: Effective Repository Date:2018-04-01 03/29/2018 HANNAH GOOD Primary [address]ANNAH [id number] Insurance:SUMMA IIDOB: [place], [place] CAREPolicy Number: [id number] Hospital [address]Yfd: (800) [id number] Repository [phone] () Date:9897-27-31LG [address] [place] [address]QW: 03/29/2018 Secondary NOT GIVENUNK [place] Insurance:SELF PAY [facility]: Effective Repository Date:2018-03-29 03/28/2018 HANNAH GOOD Primary HANNAH GOOD [id number] Insurance:[place]OB: [place] CARE[place] Number: [id number] Hospital [address]Myd: 330 [id number] Repository 31 () Date:1171-82-18JL [address] [address]GM: 03/28/2018 Secondary NOT GIVENUNK [place] Insurance:SELF PAY [facility] Number: Effective Repository Date:2018-03-23 11/01/2017 HANNAH GOOD Primary HANNAH GOOD [place] [id number] Insurance:[place]OB: [place] CARE[place] Number: [id number] Hospital [address]30[address]Uuy: 330 [id number] Repository 31 () Date:6655-18-29JJ [address], [place] [address]RS: 11/01/2017 Secondary NOT GIVENUNK [place] Insurance:SELF PAY [facility] Number: Effective Repository Date:2017-11-01 08/29/2017 HANNAH GOOD Primary HANNAH GOOD [id number] Insurance:[place]OB: [place] CARE[place] Number: [id number] Hospital [address]Suw: 330 [id number] Repository 88 () Date:8292-50-37[address] [address]NA: 08/29/2017 Secondary NOT GIVENUNK [place] Insurance:SELF PAY [facility] Number: Effective Repository Date:2017-07-06 08/29/2017 HANNAH GOOD Primary HANNAH GOOD [id number] Insurance:[place]OB: [place] CARE[place] Number: [id number] Hospital [address]Bhe: (330) [id number] Repository () Date:7165-33-06DT [address] [address]SO: 08/29/2017 Secondary NOT GIVENUNK [place] Insurance:SELF PAY [facility] Number: Effective Repository Date:2017-08-29 06/28/2017 HANNAH GOOD Primary HANNAH GOOD [id number] Insurance:[place] CARE[place] Number: [id number] Hospital 164[address]Qqy: (330) [id number] Repository () Date:6649-37-41[address] [address]BH: 06/28/2017 Secondary NOT GIVENUNK [place] Insurance:SELF PAY [facility] Number: Effective Repository Date:2017-06-28 06/28/2017 HANNAH GOOD Primary HANNAH GOOD [id number] Insurance:SUMMA IIDOB: [place] CAREPolicy Number: [id number] Hospital [address]Pff: (330) [id number] Repository () Date:3628-28-23HA [address] [address]MY: 06/28/2017 Secondary NOT GIVENUNK [place] Insurance:SELF PAY [facility] Number: Effective Repository Date:2017-06-28 04/13/2017 Hannah Good Primary Hannah [id number] Insurance:SUMMA IIDOB: [facility] [place] CAREPolicy Number: [id number] Hospital [address]Peh: (330) [id number] Repository () Date:0954-70-41[address] [address]SD: 04/13/2017 Secondary NOT GIVENUNK Michelle Insurance:SELF PAY [facility] Number: Effective Repository Date:2017-03-31
== END ==
PROVIDERS: Family Provider Family Medicine; PCP Family Medicine; Referring Provider Urology; Visit Provider Urology
DX: N20.0 Calculus of kidney (principal)
CPT/HCPCS: 82360

== ENCOUNTER → 2018-06-07 09:33 | Outpatient (CLI) | payer OTHER, SELFPAY ==
[2018-06-07 12:45] LABS: Absolute Lymphocyte Count 1.69 X10^3/ul (0.83-4.51); Basophil# 0.05 X10^3/uL; Basophil% 0.8 % (0-1); Eosinophil# 0.31 X10^3/uL; Eosinophils% 4.7 % (0-5); Hematocrit 42.8 % (37-47); Lymphocyte # 1.69 X10^3/ul (4.0); Lymphocyte % 25.4 % (19-41); Mean Corp Hgb Conc 32.7 g/gl (32-36); Mean Corpuscular Volume 94.7 fL (81-99); Mean Platelet Vol. 10.7 fl (6.2-12.0); Monocyte# 0.57 X10^3/uL; Monocyte% 8.6 % (0-10); Neutrophil # 4.03 X10^3/uL (2.7-7.7); Neutrophil % 60.3 % (47-70); Platelet Count 296 K/mm3 (150-450); RBC Distribution Width CV 13.1 % (11.6-14.6); Red Blood Count 4.52 M/mm3 (4.2-5.4); White Blood Count 6.7 K/mm3 (4.4-11.0)
[2018-06-07 12:47] LABS: POSITIVE COUNT NO; POSITIVE DIFFERENTIAL NO; POSITIVE MORPHOLOGY NO
[2018-06-07 13:15] LABS: PTHIN 75.1 pg/mL (18.4-80.1)
[2018-06-07 13:41] LABS: ALB/GLOB Ratio 1.2 RATIO (0.9-2.4); AST(SGOT) 9 U/L (15-37); Alanine Aminotransfer ALT/SGPT 21 U/L (13-56); Alkaline Phosphatase 84 U/L (45-117); Anion Gap 8 (5-15); BUN 11 mg/dL (7-18); BUN/Creat Ratio 12.3 RATIO (10-20); Calcium,Total 8.4 mg/dL (8.5-10.1); Chloride 107 mmol/L (98-107); EST Glomerular Filtration Rate 72 mL/min (>60); Est Glom Filt Rate - Afr Amer 87 mL/min (>60); Globulin 3.2 g/dL (2.2-4.2); Glucose 88 mg/dL (74-106); Protein, Total 7.2 g/dL (6.4-8.2); Sodium Level 140 mmol/L (136-145); Uric Acid 4.6 mg/dL (2.6-6.0)
[2018-06-07 13:52] LABS: HIV - WCH Non-Reactive (Nonreactive)
[2018-06-08 15:08] LABS: HEPATITIS B SURFACE AG Negative (Negative); Hep C Antibodies <0.1 s/co ratio (0.0-0.9)
[2018-06-10 03:06] LABS: HEPATITIS B SURFACE AG Negative (Negative); Hepatitis A AB, Total Negative (Negative); Hepatitis A IgM Antibody Negative (Negative); Hepatitis B Core AB IgM Negative (Negative); Hepatitis B Core Ab Total Negative (Negative); Hepatitis Be Ag Negative (Negative); Hepatitis C Ab <0.1 s/co ratio (0.0-0.9); QNTFERON TB Mitogen Value > 10.00 IU/mL (.); QNTFERON TB Nil Value 0.02 IU/mL (.); QNTFERON TB1+ Ag Value 0.04 IU/mL (.); QNTFERON TB2+ Ag Value 0.04 IU/mL (.)
[2018-06-12 13:04] LABS: Hep B Surface Antibodies Non Reactive (.); Hepatitis Be Ab Negative (Negative); QNTIFERON TB Positive Criteria Negative (Negative)
== END ==
PROVIDERS: Nurse Practitioner Family; Family Provider Family Medicine; PCP Family Medicine; Referring Provider Nurse Practitioner Adult Health; Visit Provider Nurse Practitioner Adult Health
DX: N20.0 Calculus of kidney (principal); L40.0 Psoriasis vulgaris
CPT/HCPCS: 36415; 80053; 83970; 84550; 85025; 86480; 86703; 86704; 86705; 86706; 86707; 86708; 86709; 86803; 87340; 87350

== ENCOUNTER 2020-11-23 17:31 | Emergency (ER) | payer OTHER, SELFPAY ==
[2020-11-23 17:32] VITALS: BP 130/79; PULSE 77; RESP 16; TEMP 36.6; O2SAT 97; BMI 37.5
[2020-11-23 18:29] LABS: Absolute Lymphocyte Count 3.58 X10^3/uL (0.83-4.51); Absolute Neutrophil Count 6.9 X10^3/uL (2.0-7.7); Basophil# 0.07 X10^3/uL; Basophil% 0.6 % (0-1); Eosinophil# 0.38 X10^3/uL; Eosinophils% 3.2 % (0-5); Hemoglobin 13.9 g/dL (12.0-15.0); Lymphocyte # 3.58 X10^3/ul (0.83-4.51); Lymphocyte % 30.6 % (19-41); Mean Corp Hgb Conc 33.1 g/dL (32-36); Mean Corpuscular Hgb 30.5 pg (27.0-32.0); Mean Corpuscular Volume 92.3 fL (81-99); Mean Platelet Vol. 9.9 fl (6.2-12.0); Monocyte# 0.77 X10^3/uL; Monocyte% 6.6 % (0-10); NRBC Flagged by Analyzer 0 % (0-5); Neutrophil # 6.87 X10^3/uL (2.7-7.7); Neutrophil % 58.7 % (47-70); Platelet Count 357 K/mm3 (150-450); RBC Distribution Width CV 12.9 % (11.6-14.6); RBC Distribution Width SD 43.8 fl (35.1-43.9); Red Blood Count 4.55 M/mm3 (4.2-5.4); White Blood Count 11.7 K/mm3 (4.4-11.0)
[2020-11-23 18:35] LABS: Bacteria 0 SEEN /hpf (None Seen); Mucous, Urine 0 SEEN /hpf (<or=2+); Red Blood Cells-Urine 0 SEEN /hpf (0-5); Squamous Epithelial Cells - UA 0 SEEN /hpf (5-10); White Blood Cells 0 SEEN /hpf (0-5)
[2020-11-23 18:43] LABS: Anion Gap 8 (5-15); BUN 12 mg/dL (7-18); BUN/Creat Ratio 16.3 RATIO (10-20); Calcium,Total 9.1 mg/dL (8.5-10.1); Chloride 103 mmol/L (98-107); Creatinine, Serum 0.74 mg/dL (0.55-1.02); EST Glomerular Filtration Rate 89 mL/min (>60); Est Glom Filt Rate - Afr Amer 108 mL/min (>60); Estimated Creatinine Clearance 76.07 ml/min; Glucose 85 mg/dL (74-106); Potassium 3.9 mmol/L (3.5-5.1); Sodium Level 139 mmol/L (136-145)
--- NOTE | 2020-11-23 18:46 | CT_ITS ---
INDICATION: left flank pain EXAMINATION: CT Abdomen And Pelvis W/O Contrast Injection TECHNIQUE: Helically acquired images were obtained of the abdomen and pelvis without the use of IV contrast. A radiation dose optimization technique was used for this scan. Oral contrast: None. COMPARISON: None FINDINGS: Evaluation of the solid organs and vascular structures is limited without intravenous contrast. Visualized lung bases: Unremarkable Liver: Unremarkable Gallbladder: Unremarkable Spleen: Unremarkable Pancreas: Unremarkable Adrenal Glands: Unremarkable Kidneys: Obstructing 4 mm calculus seen in the left ureterovesical junction with associated mild left hydroureteronephrosis. Other scattered nonobstructing calculi bilaterally. Vasculature: Unremarkable GI Tract: Unremarkable Lymphadenopathy: None Peritoneum: No ascites. Bladder: Unremarkable Reproductive organs: Unremarkable Bones/Soft tissues: No suspicious osseous or soft tissue lesions CT/Abdomen/Pelvis without Cont IMPRESSION: Obstructing 4 mm calculus seen in the left ureterovesical junction with associated mild left hydroureteronephrosis. Other scattered nonobstructing calculi bilaterally. Electronically Signed: Jv Robin MD at 19:30 EDT Tel , Service support ,
--- NOTE | 2020-11-23 18:47 | ED.VIS.FEGU ---
HPI HPI - Female History of Present Illness Chief Complaint: Flank Pain Informant: patient Narrative Narrative: Patient complains of recurrent dysuria and mostly sense of intense urgency to urinate. She has evidently seen her physician. She was treated with 2 courses of antibiotics over the last month and a half. She does not recall what those were. She just saw a urologist 2 days ago. She is placed on nitrofurantoin and is not getting better. She has never had fevers or chills. No nausea vomiting. She gets pain over the bladder that is almost like spasm. She states she has an intense urgency. No vaginal discharge or bleeding. Over the last day is the first time that she is actually gotten some left flank pain. She does have a history of kidney stones in the past. She never needed any procedures. She states her kidney stones were passed but were relatively asymptomatic before. [facility] Medical History Abnormal Pap smear of cervix Abnormal uterine bleeding Anxiety Asthma Dermatitis Hyperlipemia Psoriasis Home Medications albuterol sulfate 90 mcg/actuation aerosol inhaler 1 puff INHALATION Q6H 06/28/17 [History Last Taken Unknown] fluticasone 250 mcg-salmeterol 50 mcg/dose blistr powdr for inhalation 1 inh INHALATION DAILY 06/28/17 [History Last Taken Unknown] apremilast 30 mg tablet 30 mg PO ONCE tab 01/24/20 [History Last Taken Unknown] atorvastatin 10 mg tablet 10 mg PO DAILY 01/24/20 [History Last Taken Unknown] dupilumab 300 mg/2 mL subcutaneous pen injector 300 mg SC .COMPLEX 01/24/20 [History Last Taken Unknown] naproxen 500 mg tablet 500 mg PO BID-TID PRN #60 tab 01/24/20 [Rx Last Taken Unknown] ondansetron 4 mg PO Q8H PRN #10 tab 11/23/20 [Rx Last Taken Unknown] oxycodone-acetaminophen [Percocet] 1 tab PO Q6H PRN 3 Days #12 tab 11/23/20 [Rx Last Taken Unknown] pantoprazole 40 mg PO DAILY 11/23/20 [History Last Taken Unknown] tamsulosin [Flomax] 0.4 mg PO DAILY #7 cap 11/23/20 [Rx Last Taken Unknown] Allergy/AdvReac Type Severity Reaction Status Date / Time No Known Allergies Allergy Verified 11/23/20 17:34 Family History Father Colon cancer Grandfather Colon cancer Surgical History delivery delivered H/O LEEP Hx of breast reduction, elective Social History Smoking Status: Never smoker alcohol intake: current details: social substance use type: does not use caffeine: Yes what type of physical activity do you participate in: walking seatbelt use: always do you feel safe at home: Yes additional social history: 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 ROS ED Constitutional Constitutional ED: Denies chills or fever(s) ENT ENT ED: Denies rhinorrhea or sore throat Cardiovascular Cardiovascular: Denies chest pain Respiratory/Chest Respiratory/Chest: Denies dyspnea or stridor Gastrointestinal Gastrointestinal: Reports abdominal pain; Denies diarrhea, nausea or vomiting Genitourinary Genitourinary ED: Reports dysuria and urinary frequency; Denies hematuria Musculoskeletal Musculoskeletal: Denies arthralgias or myalgias Integumentary Denies rash Neurologic Neurologic: Denies headache(s) or paresthesias Endocrine Endocrinology: Denies polydipsia or polyuria Hematologic/Lymphatic Hematologic/Lymphatic: Denies easy bleeding or easy bruising Allergic/Immunologic Allergic/Immunologic ED: Denies urticaria EXAM Physical Exam Const Vital Signs: 11/23/20 17:32 11/23/20 18:49 Temperature 97.9 F 98.0 F Temperature Source Temporal Temporal Pulse Rate 77 57 L Respiratory Rate 16 17 Blood Pressure 130/79 H 122/83 H Blood Pressure Mean 96 96 Pulse Ox 97 Oxygen Delivery Method Room Air Room Air Positive well nourished, well developed and obese General Appearance ED: well developed and NAD Nutritional Appearance: obese HEENT Reports moist mucous membranes Eyes General Eye ED: Negative for pale conjunctiva Resp normal respiratory effort and clear to auscultation bilaterally Cardio regular rate and regular rhythm GI normal to inspection, nondistended, normoactive bowel sounds and soft to palpation GI Narrative: Patient does have some very mild suprapubic tenderness. It is very subtle toward the left side to. She does also have some mild left CVA tenderness. Negative for no CVA tenderness Back/Spine General Back: CVA tenderness Neuro oriented x3 Sensorium / Orientation: alert Psych mental status grossly normal Skin no rashes or lesions noted MDM MDM MDM Narrative Medical decision making narrative: Patient's white count is 11.7 which is a minimal nonspecific elevation. is negative. Urine shows some nitrites but it is clear yellow and has 0 white cells. Electrolytes are unremarkable. Kidney function is normal. Her CT scan does show a 4 mm left UVJ stone. Patient been having symptoms for a month and a half. However, the pain just started in the last day. I told her she can finish her nitrofurantoin. I will write for meds for pain and nausea if that develops. She will follow up again with her urologist whom she just saw on Tuesday. If she develops fevers chills worsening pain vomiting or other concerns she should return. Lab Data Attestation: I reviewed the patient's lab results. Labs: Laboratory Results - last 24 hr 11/23/20 11/23/20 11/23/20 18:13 18:20 18:20 WBC 11.7 H RBC 4.55 Hgb 13.9 Hct 42.0 MCV 92.3 MCH 30.5 MCHC 33.1 RDW Std Deviation 43.8 RDW Coeff of John 12.9 Plt Count 357 MPV 9.9 Immature Gran % (Auto) 0.300 Neut % (Auto) 58.7 Lymph % (Auto) 30.6 Kaufman % (Auto) 6.6 Eos % (Auto) 3.2 Baso % (Auto) 0.6 Absolute Neuts (auto) 6.9 Absolute Lymphs (auto) 3.58 Nucleated RBC % 0 Sodium Potassium Chloride Carbon Dioxide Anion Gap BUN Creatinine Estim Creat Clear Calc Est GFR (MDRD) Af Amer Est GFR (MDRD) Non-Af BUN/Creatinine Ratio Glucose Calcium Serum , Qual NEGATIVE Urine Color Yellow Urine Clarity Clear Urine pH 6.5 Ur Specific Collins 1.010 Urine Protein Negative Urine Glucose (UA) Normal Urine Ketones Negative Urine Occult Blood 10 H Urine Nitrite Positive H Urine Bilirubin 1 H Urine Urobilinogen 1 H Ur Leukocyte Esterase Negative Urine RBC 0 SEEN Urine WBC 0 SEEN Ur Squamous Epith Cells 0 SEEN Urine Bacteria 0 SEEN Urine Mucus 0 SEEN 11/23/20 18:20 WBC RBC Hgb Hct MCV MCH MCHC RDW Std Deviation RDW Coeff of John Plt Count MPV Immature Gran % (Auto) Neut % (Auto) Lymph % (Auto) Kaufman % (Auto) Eos % (Auto) Baso % (Auto) Absolute Neuts (auto) Absolute Lymphs (auto) Nucleated RBC % Sodium 139 Potassium 3.9 Chloride 103 Carbon Dioxide 28.0 Anion Gap 8 BUN 12 Creatinine 0.74 Estim Creat Clear Calc 76.07 Est GFR (MDRD) Af Amer 108 Est GFR (MDRD) Non-Af 89 BUN/Creatinine Ratio 16.3 Glucose 85 Calcium 9.1 Serum , Qual Urine Color Urine Clarity Urine pH Ur Specific Collins Urine Protein Urine Glucose (UA) Urine Ketones Urine Occult Blood Urine Nitrite Urine Bilirubin Urine Urobilinogen Ur Leukocyte Esterase Urine RBC Urine WBC Ur Squamous Epith Cells Urine Bacteria Urine Mucus Radiography Diagnostic Testing: Radiology Impression Abdomen/Pelvis CT 11/23/20 18:46 IMPRESSION: Obstructing 4 mm calculus seen in the left ureterovesical junction with associated mild left hydroureteronephrosis. Other scattered nonobstructing calculi bilaterally. Electronically Signed: Jv Robin MD at 19:30 EDT Tel , Service support , Discharge Plan Triage Chief Complaint: Flank Pain ED Provider: Abdifatah Koroma Dx/Rx/DC Orders Clinical Impression: Kidney stone on left side Instructions: ED Kidney Stone w/ Colic Prescriptions: New oxycodone-acetaminophen [Percocet] 5-325 mg tablet 1 tab PO Q6H PRN (Reason: pain) 3 Days Qty: 12 RF: 0 ondansetron 4 mg tablet,disintegrating 4 mg PO Q8H PRN (Reason: nausea and vomiting) Qty: 10 RF: 0 tamsulosin [Flomax] 0.4 mg capsule 0.4 mg PO DAILY Qty: 7 RF: 0 No Action fluticasone propion-salmeterol [Advair Diskus] 250-50 mcg/dose blister with device 1 inh INHALATION DAILY RF: 0 albuterol sulfate [ProAir HFA] 90 mcg/actuation HFA aerosol inhaler 1 puff INHALATION Q6H RF: 0 Otezla 30 mg tablet 30 mg PO ONCE RF: 0 Dupixent Pen 300 mg/2 mL pen injector 300 mg SC .COMPLEX RF: 0 atorvastatin [Lipitor] 10 mg tablet 10 mg PO DAILY RF: 0 naproxen 500 mg tablet 500 mg PO BID-TID PRN (Reason: pain) Qty: 60 RF: 12 pantoprazole 40 mg tablet,delayed release (DR/EC) 40 mg PO DAILY RF: 0 Primary Care Provider: Clark Uribe Referrals: Clark Uribe MD [Primary Care Provider] - As Needed Activity Restrictions/Additional Instructions: Follow-up with your urologist on Tuesday. Disposition Disposition: Home, Self Care
[2020-11-23 18:49] VITALS: BP 122/83; PULSE 57; RESP 17; TEMP 36.7
[2020-11-23 18:54] LABS: Internal QC Validated? YES +Cl - CLEAR BKGD; Pregnancy, Serum, hCG Quali. NEGATIVE Negative
[2020-11-23 18:59] LABS: Color, Urine Yellow (Yellow); Glucose, Dipstick Normal (Normal); Ketone-Dipstick Negative (Negative); Leukocyte Esterase-Dipstick Negative /ul (Negative); Nitrite-Dipstick Positive (Negative); Occult Blood-Urine 10 /ul (Negative); Protein-Dipstick Negative (Negative); Urine Clarity Clear (Clear); Urine Urobilinogen 1 mg/dl (Normal); Urine pH 6.5 (5.0 - 8.0)
[2020-11-23 19:10] LABS: Urine Bilirubin Dipstick 1 mg/dL (Negative)
[2020-11-23 21:01] VITALS: BP 124/75; PULSE 67; RESP 16; O2SAT 100
== END 2020-11-23 21:01 | disposition home or self-care (01) ==
PROVIDERS: Emergency Provider Emergency Medicine; PCP Family Medicine
DX: N20.0 Calculus of kidney (principal); E66.9 Obesity, unspecified; E78.5 Hyperlipidemia, unspecified; J45.909 Unspecified asthma, uncomplicated; Z87.442 Personal history of urinary calculi; Z79.51 Long term (current) use of inhaled steroids; Z79.899 Other long term (current) drug therapy
CPT/HCPCS: 74176; 80048; 81001; 84703; 85025; 87086; 99283; J7030; A4216

== ENCOUNTER → 2021-11-26 | Outpatient (CLI) | payer OTHER, SELFPAY | END | disposition home or self-care (01) | LOC: LABSPEC 15:05 | PROVIDERS: PCP Family Medicine; Referring Provider Obstetrics & Gynecology; Visit Provider Obstetrics & Gynecology | DX: N95.1 Menopausal and female climacteric states (principal) | CPT/HCPCS: 87070; 87205 ==

== ENCOUNTER 2021-12-29 08:27 | Day surgery (SDC) | payer OTHER, SELFPAY ==
[2021-12-25 16:04] LABS: Absolute Lymphocyte Count 1.65 X10^3/uL (0.83-4.51); Absolute Neutrophil Count 3.4 X10^3/uL (2.0-7.7); Basophil# 0.05 X10^3/uL; Basophil% 0.9 % (0-1); Eosinophil# 0.09 X10^3/uL; Eosinophils% 1.5 % (0-5); Hematocrit 39.7 % (37-47); Hemoglobin 13.2 g/dL (12.0-15.0); Lymphocyte # 1.65 X10^3/ul (0.83-4.51); Lymphocyte % 28.1 % (19-41); Mean Corp Hgb Conc 33.2 g/dL (32-36); Mean Corpuscular Hgb 30.4 pg (27.0-32.0); Mean Corpuscular Volume 91.5 fL (81-99); Mean Platelet Vol. 9.9 fl (6.2-12.0); Monocyte# 0.72 X10^3/uL; Monocyte% 12.2 % (0-10); NRBC Flagged by Analyzer 0 % (0-5); Neutrophil # 3.35 X10^3/uL (2.7-7.7); Platelet Count 286 K/mm3 (150-450); RBC Distribution Width CV 13.8 % (11.6-14.6); RBC Distribution Width SD 46.4 fl (35.1-43.9); Red Blood Count 4.34 M/mm3 (4.2-5.4); White Blood Count 5.9 K/mm3 (4.4-11.0)
[2021-12-29] VITALS (7 sets, daily range): BP systolic 106–120; BP diastolic 70–82; PULSE 70–81; RESP 16–17; TEMP 36.2–37.3; O2SAT 91–98; BMI 38.1
--- NOTE | 2021-12-29 | EMB_PTH ---
PATIENT: MADHURI MCDERMOTT LOC: [facility] U#:[id number] AGE/SX: 51/F ROOM: RE12/29/[address]: Dr. Keyonna Lainez MD : 1970 BED: DIS: 12/29/2021 SPEC #: [id number] RECD: 12/29/21 13:12 STATUS: [place] REPrince #: [id number] MARIA LUISA: 12/29/21 00:[address]: Keyonna Lainez DEPT: SURGICAL PATHOLOGY RECD BY: Dirk Wood ENTERED: 12/29/21 13:12 SP TYPE: ENDOM BX/C CLAY DR: Dr. Clark Uribe MD Tissues: Endometrium, NOS Procedures: Surgery Specimen Level IV HEADER OPERATION: Hysteroscopy, dilation and curettage PRE-OP DIAGNOSIS: Endocervical polyp TISSUE SUBMITTED: Endometrial curettings MICROSCOPIC DIAGNOSIS Endometrium, curettings: Proliferative endometrium with minimal disorder. Chronic endometritis. Rare fragments of benign superficial endocervix. AM:artemio 12/30/2021 MICROSCOPIC DESCRIPTION Slides are reviewed. GROSS DESCRIPTION Received in fixative is one container labeled with the patient's name and designated endometrial curettings. The specimen consists of multiple irregular fragments of red-varma soft tissue that in aggregate measure 2.2 x 2 x 0.2 cm. The specimen is totally submitted in one cassette. / AM:artemio 12/29/2021 TC:3 CPT: 97798
[2021-12-29 08:53] LABS: Internal QC Validated? YES +Cl - CLEAR BKGD; Pregnancy, Urine Negative Negative
[2021-12-29] MEDS: Lactated Ringers 1,000 ML 15 ML IV (09:05)
--- NOTE | 2021-12-29 09:31 | PCM.HP.BLA ---
History and Physical [facility] [address] [place] [address] OFFICE VISIT Date of Service:? 11/26/21 MR#: [id number] Acct: [id number] Name:MADHURI SHARMA Rep #: [id number] : 1970 ? ? Provider: Dr. Keyonna Lainez MD Age/Sex:? 51/F ? ? Location: [facility] [place] Status: Signed Intake Vital Signs ? 11/26/2210:01 11/26/2210:04 Height 5 ft 3 in 5 ft 3 in Weight: 214 lb ? BMI 37.9 ? BP 116/75 ? Intake Visit Reasons:?u/s cyst and polyp on left ovary Chief Complaint: u/s follow up Business Travel Consultant Required: No Is patient in pain?: No Allergies No Known Allergies Allergy (Verified 01/26/21 10:30) Medications albuterol sulfate 90 mcg/actuation aerosol inhaler (ProAir HFA) 1 puff inhalation Q6H 06/28/17 [History Confirmed 11/26/21] fluticasone 250 mcg-salmeterol 50 mcg/dose blistr powdr for inhalation (Advair Diskus) 1 inh inhalation DAILY 06/28/17 [History Confirmed 11/26/21] apremilast 30 mg tablet (Otezla) 30 mg PO ONCE 01/24/20 [History Confirmed 11/26/21] atorvastatin 10 mg tablet (Lipitor) 10 mg PO DAILY 01/24/20 [History Confirmed 11/26/21] dupilumab 300 mg/2 mL subcutaneous pen injector (Dupixent) 300 mg subcut .COMPLEX 01/24/20 [History Confirmed 11/26/21] Is last menstrual period known: No Post menopausal: No Patient : No : No PFSH Medical History? Abnormal Pap smear of cervix Abnormal uterine bleeding Anxiety Asthma Dermatitis Hyperlipemia Psoriasis Surgical History? delivery delivered H/O LEEP Hx of breast reduction, elective Family History?(Updated 01/26/21 @ 10:31 by Breanna Luna) Father Colon cancerGrandfather Colon cancer ?? ? paternal ?? ?Brother Colon cancerMother Breast cancer,? Onset Age: 71Uncle Colon cancerGrandfather Colon cancer ?? ? maternal Social History? Smoking Status:? Never smoker alcohol intake:? current details:? social substance use type:? does not use caffeine:? Yes what type of physical activity do you participate in:? walking seatbelt use:? always do you feel safe at home:? Yes additional social history:? 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 she had her last period in october.? she has heavy menses and pms, change tampons every 2 hours.? she is having concentration changes, vaginal dryness loss of libido.? she is having significant perimenopausal symptoms.? she has clear vaginal discharge with ovulation.? Ultrasound showed endocervical polyp. History ? ? ? 1 ? Elective abortions ? Hx Para ? ? ? 1 ? Spontaneous abortions ? Hx # Term Pregnancies ? Ectopic pregnancies ? Hx # Pregnancies ? Multiple births ? # of living children ? Past Pregnancies Del. Date Name GA/Weeks Outcome Route Bth Weight Infant Gen Labor Lgth Anesthesia Del Locatn Provider FOB Unknown 2007 Courtney 41 live - full term ? [place] ? ROS Const Constitutional: Denies fatigue, fever(s), headache(s), increased appetite, poor appetite, weight gain or weight loss Cardio Card: Denies chest pain Resp Resp: Denies cough or dyspnea GI GI: Reports as per HPI; Denies abdominal pain, constipation, nausea or vomiting : Reports as per HPI; Denies difficulty voiding, dysuria, nipple discharge, urinary frequency, urinary incontinence, urinary hesitancy, urinary urgency, vaginal discharge, vaginal dryness, vaginal odor or vaginal pruritus Skin Skin/Breast: Denies change in hair, breast mass, breast pain, breast skin changes or nipple discharge Exam Const General: cooperative, healthy appearing, comfortable, no acute distress and well developed Nutritional Appearance: average body habitus Orientation: alert HENMT Head: normal to inspection and normocephalic Neck Neck: normal visual inspection and trachea midline Thyroid: thyroid normal Resp Effort & Inspection: normal respiratory effort GI Inspection: normal to inspection and non-distended Palpation: soft and no hepatosplenomegaly General: bladder normal to palpation External Female Exam: normal external appearance and normal appearance of the urethra Urethra: normal appearance of the urethra, normal palpation and no discharge Speculum Exam - Vagina: normal appearance of the vagina and normal vaginal discharge Speculum Exam - Cervix: normal appearance of the cervix and nontender Bimanual Exam- Vagina & Uterus: normal bimanual exam, uterine size normal, bladder normal to palpation, uterine shape normal, No tender, uterine mobility normal, consistency normal, normal palpation and non-tender Bimanual Exam- Adnexa, other: normal adnexae, adnexae mobile, no masses and normal Pelvic Support: normal Skin General: no rashes or lesions noted Coding Level of Care Code Off vis,est,level 4 Diagnoses Endocervical polyp? N84.1 Hyperlipidemia? E78.5 Climacteric? N95.1 Assessment and Plan Assessment and Plan (1) Endocervical polyp: ?Status:?Acute ?Comment: 9 mm endocervical, plan d and c hysteroscopy possible symphion (2) Hyperlipidemia: ?Status:?Acute (3) Climacteric: ?Status:?Acute ? ? ? Orders: Orders Culture, Genital Comprehensive 11/26/21 N95.1 - Menopausal and female climacteric states ? Plan After discussing the patient's diagnosis and treatment plan options, patient wishes to proceed with surgical management.? I have discussed with the patient the risks, benefits, and alternatives of the procedure which include but are not limited to risks of anesthesia, bleeding, infection, possible damage to bowel, bladder, or surrounding vasculature which could lead to additional surgery to evaluate any complications.? Patient agrees to procedure and wishes to proceed.? ACOG/uptodate references given for additional information regarding procedure.? UPDATE- I have seen the patient and performed any clinically relevant updates to the history and physical exam. Keyonna Lainez MD
--- NOTE | 2021-12-29 09:31 | PCM.OPRPT ---
Problems Associated Problem List Diagnoses (1) Endocervical polyp: Report of Operation Date of Procedure: 12/29/21 Pre-Operative Diagnosis: see problem list Post-Operative Diagnosis: same Surgery/Procedure Performed:: D&C hysteroscopy Description of Surgical Findings:: narrow cavity, unable to fully visualize ostia, sounded to 7 cm, maintained pressure throughout, 100 deficit total Surgeon: Keyonna Lainez product support manager: None Type of Anesthesia: Local MAC Special Medications: none Specimen's removed: EMC Drains: none Estimated Blood Loss (mL): 50 Fluids Replaced: crystalloid Description of Procedure: Patient was prepped and draped in a normal sterile fashion under MAC anesthesia. A weighted speculum was placed in the vagina and the anterior lip of the cervix was grasped with a single-tooth tenaculum. A paracervical block was placed with 1% lidocaine. Cervix was progressively dilated to allow passage of a 5 mm hysteroscope. The lining was fully visualized and noted to have narrow cavity no polyps seen, fluffy appearance to lining . Uterine sounded to 7 cm. sharp curretage performed. All instruments were removed from the vagina and excellent hemostasis was noted. Patient was awoken and taken to recovery in stable condition. Grafts/Implants Used: none Complications none Admit VTE Documentation VTE Present on Admission: No VTE Mechan Device Prophylaxis: SCD's Multi Select Codes Urinary/Genital Urinary/Genital CPT Codes: 89322 Hysteroscopy, diagnostic
--- NOTE | 2021-12-29 09:32 | DCINST_ITS ---
Discharge Instructions Procedure D&C Diet Discharge Diet: No restrictions Activity Discharge Activity: Return to Normal Activity, May Shower and May Take a Tub Bath (after 1 week) May resume sexual activity in: 1-2 weeks Weight Bearing Status: Weight bearing as tolerated Lifting Restrictions: none Dressing / Incision Call your doctor if you observe: Fever of 101 or Higher, Using more than 1 pad per hour, Shortness of breath and Uncontrolled pain Follow Up Care Please Follow Up With: Keyonna Lainez MD When: Call [phone] to schedule appointment. Test Results: Test results from this visit will be discussed in further detail at your follow- up appointment, if applicable. Discharge Plan Admission Attending Provider: Keyonna Lainez Primary Care Provider: Clark Uribe Discharge Orders/Prescriptions Prescriptions: No Action fluticasone propion-salmeterol [Advair Diskus] 250-50 mcg/dose blister with device 1 inh INHALATION DAILY albuterol sulfate [ProAir HFA] 90 mcg/actuation HFA aerosol inhaler 1 puff INHALATION Q6H Otezla 30 mg tablet 30 mg PO ONCE Dupixent Pen 300 mg/2 mL pen injector 300 mg SC .COMPLEX Rx Instructions: 300 mg subcut once every 15 days; atorvastatin [Lipitor] 10 mg tablet 10 mg PO DAILY Referrals / Follow Up: Clark Uribe MD [Primary Care Provider] - Disposition Disposition (needs filled in before D/C Order can be placed): Home, Self Care
== END 2021-12-29 11:24 | disposition home or self-care (01) ==
LOC: SDC 08:28 → AC 08:29
PROVIDERS: PCP Family Medicine; Referring Provider Obstetrics & Gynecology; Visit Provider Obstetrics & Gynecology
PROC: 0UB98ZZ Excision of Uterus, Via Natural or Artificial Opening Endoscopic (ICD-10-PCS; CPT 58558; principal; 2021-12-29 09:20)
DX: N71.1 Chronic inflammatory disease of uterus (principal); E78.5 Hyperlipidemia, unspecified; G47.30 Sleep apnea, unspecified; Z79.899 Other long term (current) drug therapy
CPT/HCPCS: 58558; 36415; 81025; 85025; 86850; 86900; 86901; 88305; J7120; J2405

== ENCOUNTER → 2022-01-26 | Outpatient (CLI) | payer OTHER, SELFPAY ==
[2022-01-26 12:13] LABS: Absolute Lymphocyte Count 2.27 X10^3/uL (0.83-4.51); Absolute Neutrophil Count 5.2 X10^3/uL (2.0-7.7); Basophil# 0.04 X10^3/uL; Basophil% 0.5 % (0-1); Eosinophil# 0.34 X10^3/uL; Lymphocyte # 2.27 X10^3/ul (0.83-4.51); Lymphocyte % 26.6 % (19-41); Mean Corp Hgb Conc 33.3 g/dL (32-36); Mean Corpuscular Hgb 29.9 pg (27.0-32.0); Mean Corpuscular Volume 89.6 fL (81-99); Mean Platelet Vol. 10.6 fl (6.2-12.0); Monocyte# 0.62 X10^3/uL; Monocyte% 7.3 % (0-10); NRBC Flagged by Analyzer 0 % (0-5); Neutrophil # 5.23 X10^3/uL (2.7-7.7); Neutrophil % 61.4 % (47-70); Platelet Count 294 K/mm3 (150-450); RBC Distribution Width CV 13.6 % (11.6-14.6); RBC Distribution Width SD 43.9 fl (35.1-43.9); Red Blood Count 4.69 M/mm3 (4.2-5.4); White Blood Count 8.5 K/mm3 (4.4-11.0)
[2022-01-26 12:41] LABS: AST(SGOT) 12 U/L (15-37); Alanine Aminotransfer ALT/SGPT 26 U/L (13-56); Albumin, Serum 3.8 g/dL (3.2-5.0); Alkaline Phosphatase 73 U/L (45-117); Anion Gap 10 (5-15); BUN 8 mg/dL (7-18); Bilirubin, Direct 0.07 mg/dL (0.00-0.30); Calcium,Total 8.9 mg/dL (8.5-10.1); Chloride 105 mmol/L (98-107); Cholesterol 258 mg/dL (200); Creatinine, Serum 0.73 mg/dL (0.55-1.02); EST Glomerular Filtration Rate 90 mL/min (>60); Est Glom Filt Rate - Afr Amer 108 mL/min (>60); Globulin 3.6 g/dL (2.2-4.2); Glucose 84 mg/dL (74-106); High Density Lipoprotein 44 mg/dL; Potassium 4.1 mmol/L (3.5-5.1); Protein, Total 7.4 g/dL (6.4-8.2); Sodium Level 137 mmol/L (136-145); Triglycerides 189 mg/dL; Very Low Density Lipoprotein 38 mg/dL (5-40)
[2022-01-28 20:08] LABS: QNTFERON TB Mitogen Value > 10.00 IU/mL (.); QNTFERON TB Nil Value 0.03 IU/mL (.); QNTFERON TB1+ Ag Value 0.02 IU/mL (.); QNTFERON TB2+ Ag Value 0.03 IU/mL (.)
[2022-01-28 21:01] LABS: QNTIFERON TB Positive Criteria Negative (Negative)
== END | disposition home or self-care (01) ==
LOC: MTLAB 09:32
PROVIDERS: PCP Family Medicine; Referring Provider Dermatology; Visit Provider Dermatology
DX: L40.0 Psoriasis vulgaris (principal); L40.59 Other psoriatic arthropathy; L20.89 Other atopic dermatitis; Z79.899 Other long term (current) drug therapy
CPT/HCPCS: 36415; 80048; 80061; 80076; 85025; 86480

== ENCOUNTER → 2022-05-10 | Outpatient (CLI) | payer OTHER, SELFPAY ==
[2022-05-14 13:32] LABS: HPV APTIMA, High Risk Negative (Negative)
== END | disposition home or self-care (01) ==
LOC: LABSPEC 11:55
PROVIDERS: PCP Family Medicine; Referring Provider Obstetrics & Gynecology; Visit Provider Obstetrics & Gynecology
DX: Z12.4 Encounter for screening for malignant neoplasm of cervix (principal)
CPT/HCPCS: 87624; 88175; G0145

== ENCOUNTER 2022-05-31 10:05 | Outpatient (RCR) | payer OTHER, SELFPAY | END 2022-06-11 23:59 | LOC: NS 10:05 | PROVIDERS: PCP Family Medicine; Visit Provider Obstetrics & Gynecology | DX: Z71.3 Dietary counseling and surveillance (principal); E66.9 Obesity, unspecified; E78.5 Hyperlipidemia, unspecified; Z68.38 Body mass index [BMI] 38.0-38.9, adult | CPT/HCPCS: 97802 ==

== ENCOUNTER 2022-06-28 15:03 | Outpatient (RCR) | payer OTHER, SELFPAY | END 2022-07-11 23:59 | LOC: NS 15:03 | PROVIDERS: PCP Family Medicine; Referring Provider Obstetrics & Gynecology; Visit Provider Obstetrics & Gynecology | DX: Z71.3 Dietary counseling and surveillance (principal); E66.9 Obesity, unspecified; E78.5 Hyperlipidemia, unspecified; Z68.38 Body mass index [BMI] 38.0-38.9, adult | CPT/HCPCS: 97803 ==

== ENCOUNTER → 2022-07-12 | Outpatient (CLI) | payer OTHER, SELFPAY | END | disposition home or self-care (01) | LOC: LABSPEC 16:57 | PROVIDERS: PCP Family Medicine; Referring Provider Obstetrics & Gynecology; Visit Provider Obstetrics & Gynecology | DX: N89.8 Other specified noninflammatory disorders of vagina (principal) | CPT/HCPCS: 87070; 87205 ==

== ENCOUNTER 2022-09-06 09:00 | Outpatient (RCR) | payer OTHER, SELFPAY | END 2022-09-10 23:59 | LOC: NS 09:00 | PROVIDERS: PCP Family Medicine; Referring Provider Obstetrics & Gynecology; Visit Provider Obstetrics & Gynecology | DX: Z71.3 Dietary counseling and surveillance (principal); E66.9 Obesity, unspecified; E78.5 Hyperlipidemia, unspecified; Z68.38 Body mass index [BMI] 38.0-38.9, adult | CPT/HCPCS: 97803 ==

== ENCOUNTER → 2023-01-12 | Outpatient (CLI) | payer OTHER, SELFPAY ==
--- NOTE | 2023-01-12 09:19 | BI_ITS ---
MAMMOGRAPHY - BILATERAL SCREENING REASON FOR EXAM: Female, 52 years old. Routine annual screening examination. PERTINENT HISTORY: Mother with breast cancer. Bilateral breast reduction surgery. TECHNIQUE: Digital bilateral breast cherri (3D mammographic acquisition) in the CC and MLO projections. 2-D mediolateral oblique (MLO) and craniocaudad (CC) views of both breasts were obtained. CAD: Full Field Digital Mammography with Computer Added Detection was performed. COMPARISON: Comparison is made with prior study dated November 23, 2011 and outside examination dated July 03, 2019. FINDINGS: Breast Composition: The breasts are heterogeneously dense, which may obscure small masses. There are no dominant masses or suspicious calcifications. No other significant abnormalities are identified. There has been no significant change since the prior study. BI/SCRN MAMM (CAD)W/CHERRI BILAT IMPRESSION: Stable bilateral screening mammogram. Yearly follow-up mammogram recommended. (A) ASSESSMENT CATEGORY: BIRADS Category 2: Benign. A letter regarding these results will be sent to the patient by the facility within 30 days. Approximately 10% of breast cancers are not detected by mammography. A normal mammogram should not delay biopsy of a clinically suspicious abnormality. [id number] Electronically Signed: Garett Maharaj MD at 11:13 EDT ,
== END | disposition home or self-care (01) ==
LOC: OPBI 09:18
PROVIDERS: PCP Family Medicine; Referring Provider Obstetrics & Gynecology; Visit Provider Obstetrics & Gynecology
DX: Z12.31 Encounter for screening mammogram for malignant neoplasm of breast (principal)
CPT/HCPCS: 77063; 77067

== ENCOUNTER → 2023-03-09 | Outpatient (CLI) | payer OTHER, SELFPAY | END | disposition home or self-care (01) | LOC: LABSPEC 15:58 | PROVIDERS: PCP Family Medicine; Referring Provider Nurse Practitioner Women's Health; Visit Provider Nurse Practitioner Women's Health | DX: N89.8 Other specified noninflammatory disorders of vagina (principal) | CPT/HCPCS: 87070; 87205 ==

== ENCOUNTER 2023-10-13 00:02 | Emergency (ER) | payer BC, SELFPAY ==
[2023-10-13 00:03] VITALS: BP 126/76; PULSE 87; RESP 16; TEMP 36.4; O2SAT 95; BMI 36.3
--- NOTE | 2023-10-13 00:10 | CT_ITS ---
EXAM: CT ABDOMEN AND PELVIS WITHOUT INTRAVENOUS CONTRAST CLINICAL INDICATION: LEFT FLANK TECHNIQUE: Helically acquired images were obtained of the abdomen and pelvis without intravenous contrast. This CT exam was performed using one or more of the following dose reduction techniques: automated exposure control, adjustment of the mA and/or kV according to patient size, and/or use of iterative reconstruction technique. RADIATION DOSE: Total DLP: 660.21 mGy-cm. COMPARISON: Abdomen pelvis CT of 11/23/2020. FINDINGS: LOWER THORAX: Chronic linear scarring noted within the left lower lobe laterally, unchanged. No acute basilar pulmonary infiltrates or pleural effusions. No coronary artery calcification is visualized. No significant pericardial effusion. Small hiatal hernia again noted. ABDOMEN: LIVER: Fatty infiltration of the liver. The right hepatic lobe lobe is mildly elongated measuring approximately 17.4 cm in cephalocaudal dimension. Focal fatty sparing noted adjacent to the gallbladder. GALLBLADDER AND BILE DUCTS: Contracted gallbladder. No gallstones, pericholecystic stranding or biliary ductal dilatation. PANCREAS: Unremarkable. No focal cystic mass. SPLEEN: Unremarkable. Normal size without focal cystic or solid mass. ADRENALS: Unremarkable. No nodules. KIDNEYS AND URETERS: Minimal left hydronephrosis and mild left hydroureter are present secondary to a 4 x 3 mm ovoid stone which lies within the distal ureter at the UVJ. The kidneys are normal in size. Numerous small calcifications are noted within both intrarenal collecting systems, measuring up to 6 mm in diameter on the right and up to 5 mm in diameter on the left. STOMACH AND BOWEL: Unremarkable. No stomach or bowel distention. No focal inflammatory change. PELVIS: APPENDIX: No evidence of acute appendicitis. BLADDER: Urinary bladder is nearly empty. REPRODUCTIVE: Unremarkable as visualized. No adnexal mass. ABDOMEN and PELVIS: INTRAPERITONEAL SPACE: Unremarkable. No ascites or other fluid collection. No free air. BONES/JOINTS: Lower lumbar facet arthritis. Degenerative spurring about the T9/T10 disc space. No acute osseous abnormality. No suspicious lytic or blastic abnormality. SOFT TISSUES: Unremarkable. No discrete abdominal or pelvic wall hernia. VASCULATURE: Unremarkable. Abdominal aorta is non-dilated. LYMPH NODES: Small nonspecific lymph nodes are seen within the jejunal mesentery. No adenopathy. CT/Abdomen/Pelvis without Cont IMPRESSION: Minimal left hydronephrosis due to a 4 x 3 mm stone which lies within the distal ureter at the UVJ. Nonobstructing ureteral calculi noted bilaterally. Electronically Signed: Jeremy Mccurdy MD at 1:29 EDT ,
--- NOTE | 2023-10-13 00:11 | EDS_ITS ---
HPI History of Present Illness Chief Complaint: Flank Pain Detail of Chief Complaint: Left flank pain Informant: patient Narrative Narrative: Patient presents with lower abdomen left flank pain that started yesterday evening. Similar symptoms in the past related to kidney stone. She complains of urinary frequency and urgency. She is currently on her menstrual period and does not know if she has had hematuria. She denies fevers or chills or sweats. Currently rates her pain a 7 out of 10. No significant nausea or vomiting. [facility] Medical History (Updated 10/13/23 @ 01:[address] Yumiko Muller, DO) Hx of renal calculi Wears glasses Rheumatoid arthritis High cholesterol Migraine headache History of hiatal hernia Heartburn Non-smoker Sleep apnea Endocervical polyp Hyperlipemia Psoriasis Dermatitis Abnormal uterine bleeding Abnormal Pap smear of cervix Anxiety Asthma Home Medications ?Medication ?Instructions ?Recorded ?Last Taken ?Type albuterol sulfate 90 mcg/actuation 1 puff inhalation Q6H 06/28/17 12/29/21 History aerosol inhaler (ProAir HFA) fluticasone 250 mcg-salmeterol 50 1 inh inhalation DAILY 06/28/17 Unknown History mcg/dose blistr powdr for inhalation (Advair Diskus) atorvastatin 10 mg tablet (Lipitor) 10 mg PO DAILY 01/24/20 Unknown History dupilumab 300 mg/2 mL subcutaneous 300 mg subcut .COMPLEX 01/24/20 Unknown History pen injector (Dupixent) etonogestrel 0.12 mg-ethinyl 1 vag ring vaginal ONCE 3 weeks #1 05/10/22 Unknown Rx estradiol 0.015 mg/24 hr vaginal ea ring (NuvaRing) psyllium husk 0.4 gram capsule 0.4 g PO DAILY PRN constipation 03/09/23 Unknown History (Daily Fiber) hydrocodone-acetaminophen 5-325mg 1 tab PO Q4H PRN PRN Pain 2 days 10/13/23 Unknown Rx 5mg-325mg #10 TABLETS naproxen 500 mg tablet (Naprosyn) 500 mg PO BID PRN pain #20 tabs 10/13/23 Unknown Rx Allergy/AdvReac Type Severity Reaction Status Date / Time No Known Allergies Allergy Verified 10/13/23 00:05 Family History Father Colon cancer Grandfather Colon cancer paternal Brother Colon cancer Mother Breast cancer, Onset Age: 71 Uncle Colon cancer Grandfather Colon cancer maternal Surgical History Hx of dilation and curettage Hx of tonsillectomy Hx of breast reduction, elective H/O LEEP delivery delivered Social History Smoking Status: Never smoker alcohol intake: current details: social substance use type: does not use caffeine: Yes what type of physical activity do you participate in: walking seatbelt use: always do you feel safe at home: Yes additional social history: 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[place]) Patient works at [employer] ROS ROS ED Review of Systems ROS Unobtainable: other Constitutional Constitutional ED: Reports lethargy; Denies chills, fever(s), sweats or weight loss Eyes Eyes: Denies blurry vision, change in vision or diplopia ENT ENT ED: Denies rhinorrhea or sore throat Cardiovascular Cardiovascular: Denies chest pain, orthopnea or racing heartbeat Respiratory/Chest Respiratory/Chest: Denies cough, dyspnea, dyspnea on exertion, orthopnea or sputum Gastrointestinal Gastrointestinal: Reports abdominal pain; Denies diarrhea, nausea or vomiting Genitourinary Genitourinary ED: Denies dysuria, hematuria or urinary frequency Musculoskeletal Musculoskeletal: Reports back pain; Denies arthralgias, myalgias or neck pain Integumentary Denies abscess, Abrasions or rash Neurologic Neurologic: Denies headache(s) or weakness Psychiatric Psychiatric: Denies anxiety, depression or suicidal thoughts Endocrine Endocrinology: Denies polydipsia, polyphagia or polyuria Hematologic/Lymphatic Hematologic/Lymphatic: Denies easy bleeding, easy bruising or lymphadenopathy Allergic/Immunologic Allergic/Immunologic ED: Denies mouth swelling, tongue swelling or urticaria EXAM Physical Exam Const Vital Signs: 10/13/23 00:03 Temperature 97.6 F L Temperature Source Temporal Pulse Rate 87 Respiratory Rate 16 Blood Pressure 126/76 H Blood Pressure Mean 92 Pulse Ox 95 Oxygen Delivery Method Room Air Positive well nourished and well developed General Appearance ED: well developed and NAD HEENT Reports TM's clear and moist mucous membranes normocephalic and atraumatic; Negative for trauma or tenderness Tympanic Membrane ED: Yes TM's clear Eyes PERRL and EOMs intact bilaterally General Eye ED: Negative for pale conjunctiva or scleral icterus Neck no lymphadenopathy, supple and no JVD General: Negative for tenderness Chest Wall inspection of chest normal and palpation of chest normal Chest: Negative for tenderness Resp normal respiratory effort and clear to auscultation bilaterally Effort and Inspection: Negative for respiratory distress or pain with movement Auscultation: Negative for rhonchi, wheezes or diminished lung sounds Cardio regular rate, regular rhythm, S1 normal heart sound, S2 normal heart sound and no murmurs Peripheral Pulses: pulses 2+ throughout GI normal to inspection, nondistended, normoactive bowel sounds, soft to palpation, non-distended and no masses GI Narrative: Tenderness palpation over suprapubic region with some mild guarding. There is no rebound, rigidity, or peritoneal signs. Mild CVA tenderness on the left. Back/Spine no CVA tenderness and no thoracic nor lumbar tenderness Extremity normal to inspection General Extremety ED: Negative for edema General Extremity: Negative for edema Neuro oriented x3, CN's II-XII intact bilaterally, no sensory deficits noted and gait normal Sensorium / Orientation: awake, alert, oriented to person, oriented to place and oriented to time Motor Exam: strength 5/5 throughout and strength abnormal Psych mental status grossly normal Skin no rashes or lesions noted and no wounds MDM MDM MDM Narrative Medical decision making narrative: Patient presents with left flank pain and lower abdomen pain similar to what she has had in the past when she had kidney stones. In the differential would be UTI versus kidney stone versus diverticulitis or other acute intra-abdominal process. IV line established. Patient was medicated with Toradol as she is driving. She had good pain relief with that. CBC with differential white count 9.5 with hemoglobin 13.9 and platelet count of 320. Chemistries unremarkable. Urinalysis without signs of infection. hCG was negative. CT flank shows 4 x 3 mm stone at the left UVJ with mild hydro-. This point discussed results with patient. She will be discharged home with prescription for Naprosyn and [place]. She is given urine strainers. She will be given referral to urology for follow- up. Patient advised to return if worsening pain, fever, vomiting, or condition worsening way. Lab Data Attestation: I reviewed the patient's lab results. Labs: Laboratory Results - last 24 hr 10/13/23 10/13/23 00:28 00:36 WBC 9.5 RBC 4.66 Hgb 13.9 Hct 40.8 MCV 87.6 MCH 29.8 MCHC 34.1 RDW Std Deviation 43.1 RDW Coeff of John 13.3 Plt Count 320 MPV 9.9 Immature Gran % (Auto) 0.300 Neut % (Auto) 54.5 Lymph % (Auto) 36.5 [place] % (Auto) 5.6 Eos % (Auto) 2.5 Baso % (Auto) 0.6 Absolute Neuts (auto) 5.2 Absolute Lymphs (auto) 3.48 Nucleated RBC % 0 Sodium 137 Potassium 3.5 Chloride 106 Carbon Dioxide 27.0 Anion Gap 4 L BUN 14 Creatinine 0.81 Estim Creat Clear Calc 88.03 Est GFR (MDRD) Af Amer 95 Est GFR (MDRD) Non-Af 79 BUN/Creatinine Ratio 17.2 Glucose 106 Calcium 9.1 Serum , Qual NEGATIVE Urine Color Yellow Urine Clarity Clear Urine pH 6.0 Ur Specific [place] 1.015 Urine Protein Negative Urine Glucose (UA) Normal Urine Ketones Negative Urine Occult Blood 50 H Urine Nitrite Negative Urine Bilirubin Negative Urine Urobilinogen Normal Ur Leukocyte Esterase 25 H Urine RBC 0-5 SEEN Urine WBC 0-5 SEEN Ur Squamous Epith Cells 0-5 SEEN Urine Bacteria 0 SEEN Urine Mucus 0 SEEN Discharge Plan Triage Chief Complaint: Flank Pain ED Provider: Yumiko Muller Dx/Rx/DC Orders Clinical Impression: Urolithiasis Instructions: ED Kidney Stone with Pain Prescriptions: New hydrocodone-acetaminophen 5-325 mg tablet 1 tab PO Q4H PRN PRN (Reason: Pain) 2 Days Qty: 10 0RF naproxen [Naprosyn] 500 mg tablet 500 mg PO BID PRN (Reason: pain) Qty: 20 0RF No Action fluticasone propion-salmeterol [Advair Diskus] 250-50 mcg/dose blister with device 1 inh INHALATION DAILY albuterol sulfate [ProAir HFA] 90 mcg/actuation HFA aerosol inhaler 1 puff INHALATION Q6H Dupixent Pen 300 mg/2 mL pen injector 300 mg SC .COMPLEX Rx Instructions: 300 mg subcut once every 15 days; atorvastatin [Lipitor] 10 mg tablet 10 mg PO DAILY etonogestrel-ethinyl estradiol [NuvaRing] 0.12-0.015 mg/24 hr ring 1 vag ring vaginal ONCE 21 Days Qty: 1 12RF psyllium husk [Daily Fiber] 0.4 gram capsule 0.4 g PO DAILY PRN (Reason: constipation) Primary Care Provider: Clark Uribe Referrals: Clark Uribe MD [Primary Care Provider] - Yusuf Pichardo MD [Med Staff - Active Staff] - 3-5 Days Print Language: [place] Disposition Disposition: Home, Self Care
[2023-10-13] MEDS: Ketorolac 15 MG/ML Vial IV (00:28)
[2023-10-13 00:40] LABS: Bacteria 0 SEEN /hpf (None Seen); Mucous, Urine 0 SEEN /hpf (<or=2+)
[2023-10-13 00:42] LABS: Absolute Lymphocyte Count 3.48 X10^3/uL (0.83-4.51); Absolute Neutrophil Count 5.2 X10^3/uL (2.0-7.7); Basophil# 0.06 X10^3/uL; Basophil% 0.6 % (0-1); Eosinophil# 0.24 X10^3/uL; Eosinophils% 2.5 % (0-5); Hematocrit 40.8 % (37-47); Hemoglobin 13.9 g/dL (12.0-15.0); Lymphocyte # 3.48 X10^3/ul (0.83-4.51); Lymphocyte % 36.5 % (19-41); Mean Corp Hgb Conc 34.1 g/dL (32-36); Mean Corpuscular Hgb 29.8 pg (27.0-32.0); Mean Corpuscular Volume 87.6 fL (81-99); Mean Platelet Vol. 9.9 fl (6.2-12.0); Monocyte# 0.53 X10^3/uL; Monocyte% 5.6 % (0-10); NRBC Flagged by Analyzer 0 % (0-5); Neutrophil % 54.5 % (47-70); Platelet Count 320 K/mm3 (150-450); RBC Distribution Width CV 13.3 % (11.6-14.6); RBC Distribution Width SD 43.1 fl (35.1-43.9); Red Blood Count 4.66 M/mm3 (4.2-5.4); White Blood Count 9.5 K/mm3 (4.4-11.0)
[2023-10-13] MEDS: 0.9% Normal Saline (1000mL) 1,000 ML 150 ML IV (00:42)
[2023-10-13 00:43] LABS: Color, Urine Yellow (Yellow); Glucose, Dipstick Normal (Normal); Ketone-Dipstick Negative (Negative); Leukocyte Esterase-Dipstick 25 /ul (Negative); Nitrite-Dipstick Negative (Negative); Occult Blood-Urine 50 /ul (Negative); Protein-Dipstick Negative (Negative); Specific Gravity, Urine 1.015 (1.002-1.030); Urine Bilirubin Dipstick Negative (Negative); Urine Clarity Clear (Clear); Urine Urobilinogen Normal (Normal)
[2023-10-13 01:04] LABS: Red Blood Cells-Urine 0-5 SEEN /hpf (0-5); Squamous Epithelial Cells - UA 0-5 SEEN /hpf (5-10); White Blood Cells 0-5 SEEN /hpf (0-5)
[2023-10-13 01:05] LABS: Internal QC Validated? YES +Cl - CLEAR BKGD; Pregnancy, Serum, hCG Quali. NEGATIVE Negative; Record Kit Lot#, Serum Preg. 772476
[2023-10-13 01:09] LABS: Anion Gap 4 (5-15); BUN 14 mg/dL (7-18); BUN/Creat Ratio 17.2 RATIO (10-20); Calcium,Total 9.1 mg/dL (8.5-10.1); Chloride 106 mmol/L (98-107); Creatinine, Serum 0.81 mg/dL (0.55-1.02); EST Glomerular Filtration Rate 79 mL/min (>60); Est Glom Filt Rate - Afr Amer 95 mL/min (>60); Estimated Creatinine Clearance 88.03 ml/min; Glucose 106 mg/dL (74-106); Potassium 3.5 mmol/L (3.5-5.1); Sodium Level 137 mmol/L (136-145)
[2023-10-13 01:56] VITALS: BP 105/61; PULSE 76; RESP 16; TEMP 37; O2SAT 97
== END 2023-10-13 01:57 | disposition home or self-care (01) ==
PROVIDERS: Emergency Provider Emergency Medicine; PCP Family Medicine; Visit Provider Emergency Medicine
DX: N13.2 Hydronephrosis with renal and ureteral calculous obstruction (principal); E78.00 Pure hypercholesterolemia, unspecified; G47.30 Sleep apnea, unspecified; Z79.899 Other long term (current) drug therapy
CPT/HCPCS: 74176; 80048; 81001; 84703; 85025; 96361; 96374; 96376; 99282; J7030; A4216

== ENCOUNTER → 2023-10-18 | Outpatient (CLI) | payer BC, SELFPAY ==
--- NOTE | 2023-10-18 13:44 | RAD_ITS ---
HISTORY: RIGHT KIDNEY STONE. TECHNIQUE: XR Abdomen 1 View. COMPARISON: CT 10/13/2023. FINDINGS: BOWEL GAS PATTERN: No dilated bowel loops identified. FREE AIR: Not assessed on supine view. CALCIFICATIONS: Bilateral 3 mm renal calculi. Small bilateral pelvic phleboliths observed. 3 mm left pelvic calcification. BONES: Unremarkable. SOFT TISSUES: Lung bases clear. RAD/Abdomen Single View IMPRESSION: Bilateral nephrolithiasis. Possible 3 mm left UVJ calculus. Electronically Signed: Kavita Willis MD at 8:50 EDT ,
== END | disposition home or self-care (01) ==
LOC: MTRAD 13:42
PROVIDERS: PCP Family Medicine; Referring Provider Urology; Visit Provider Urology
DX: N20.0 Calculus of kidney (principal)
CPT/HCPCS: 74018

== ENCOUNTER 2023-11-17 06:05 | Day surgery (SDC) | payer BC, SELFPAY ==
[2023-11-17] VITALS (10 sets, daily range): BP systolic 94–109; BP diastolic 59–84; PULSE 70–85; RESP 16–18; TEMP 36–36.3; O2SAT 92–97; BMI 35.5
[2023-11-17] MEDS: Lactated Ringers 1,000 ML 15 ML IV (06:30)
[2023-11-17 06:34] LABS: Internal QC Validated? YES +Cl - CLEAR BKGD; Pregnancy, Urine Negative Negative
--- NOTE | 2023-11-17 07:01 | PCM.PRE.AN2 ---
ASA Classification* ASA Classification ASA Classification: 3 Assessment & Plan Anesthesia* Anesthesia Assessment Anesthesia Assessment: Discussed sedation and/or anesthesia options, risks, benefits, and alternatives with patient/parents/legal guardian/POA. Questions invited. The patient/parents/legal guardian/POA seems to understand and agrees to proceed with anesthesia plan. Reviewed the physical assessment, medical history, allergy history and patient home medications list prior to surgery/procedure/anesthetic and documented any changes. Performed airway and anesthesia risk assessments. Anesthesia Type Anesthesia Type: General (see written pre anesthesia record for full assessment) Anesthesia Focused Assessment* Temperature: 97.1 F Pulse Rate: 73 Blood Pressure: 106/72 Respiratory Rate: 18 Pulse Ox: 97 Airway Assessment Mouth opens: >3 cm Mallampati Score: II Focused Labs Anesthesia Preop lab: CBC WBC 9.5 K/mm3 (4.4-11.0) 10/13/23 00:28 RBC 4.66 M/mm3 (4.2-5.4) 10/13/23 00:28 Hgb 13.9 g/dL (12.0-15.0) 10/13/23 00:28 Hct 40.8 % (37-47) 10/13/23 00:28 Plt Count 320 K/mm3 (150-450) 10/13/23 00:28 CHEMISTRY Potassium 3.5 mmol/L (3.5-5.1) 10/13/23 00:28 Sodium 137 mmol/L (136-145) 10/13/23 00:28 BUN 14 mg/dL (7-18) 10/13/23 00:28 Creatinine 0.81 mg/dL (0.55-1.02) 10/13/23 00:28 Glucose 106 mg/dL (74-106) 10/13/23 00:28 TSH 1.67 uIU/mL (0.358-3.74) 06/28/17 11:19 COAG Urine Test Negative Negative 11/17/23 06:25 Pre-Assessment Diagnosis/Proposed Procedure Planned Operative Procedure(s): LEFT ESWL Anesthesia History Anesthesia History - laboratory director: Anesthesia History - laboratory director Hx Hospitalization No 11/10/23 15:16 Any Problems With Anesthesia No 11/10/23 15:16 Cholinesterase deficiency No 11/10/23 15:16 You/Your Family Experience No 11/10/23 15:16 fever (hyperthermia) with Relationship Recent Exposure to Contagious No 11/17/23 06:39 Disease Does patient have nerve No 11/10/23 15:16 stimulator Patient instructed to have device shut off --Does patient have Pacemaker No 11/17/23 06:39 or ICD? When Was Last Pacemaker Check QUESTION #4 FULL TEXT: You/Your Family Experience fever (hyperthermia) with Anesthesia Last Oral Intake Last Oral intake: Last Oral Intake NPO since 21:30 11/17/23 06:39 Meds taken in AM with sips of No 11/17/23 06:39 water? Meds patient instructed to take am of surgery PONV PONV - laboratory director: PONV - laboratory director Female Yes 11/10/23 15:16 HX of Motion Sickness Yes 11/10/23 15:16 HX of N/V After Surgery No 11/10/23 15:16 Non-Smoker Yes 11/10/23 15:16 Duration of Surgery greater Yes 11/10/23 15:16 than 60 minutes Number of Risk Factors 4 11/10/23 15:16 PONV Score Severe Risk 11/10/23 15:16 Height & Weight Height & Weight: Anesthesia: Height & Weight Height 5 ft 3 in 11/17/23 06:39 Weight: 91 kg 11/17/23 06:39 Body Mass Index (BMI) 35.5 11/17/23 06:39 Respiratory Assessment Respiratory Assessment - laboratory director: Respiratory Tract Infection Hx - laboratory director Hx Respiratory Tract Infection No 11/10/23 15:16 STOP Sleep Apnea STOP Sleep Apnea - laboratory director: STOP Sleep Apnea - laboratory director Hx Hypertension No 11/10/23 15:16 Hx Sleep Apnea Yes 11/10/23 15:16 CPAP Yes: NONCOMPLIANT 11/10/23 15:16 BIPAP No 11/10/23 15:16 Do you snore loudly (louder than talking or can be heard Do you often feel tired/ fatigued/ sleepy during daytime? Has anyone observed you stop breathing during sleep? STOP Results Positive 11/10/23 15:16 QUESTION #5 FULL TEXT : Do you snore loudly (louder than talking or can be heard through closed doors)? 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 Specify any problems Hx of Preganancy in last 3 No 11/10/23 15:16 Months Nurse Filling Out Transfusion DSCHRIBER 11/10/23 15:16 & Questions: Date: 11/10/23 11/10/23 15:16 Time: 15:17 11/10/23 15:16 Patient unable to answer at this time (ie. confused, unrespo /Reproduction History /Reproductive History - laboratory director: /Reproductive Hx- laboratory director Hx Now No 11/10/23 15:16 Gestational Age (in weeks): EDC: Hx Hx Para Hx Section SAB No 11/10/23 15:16 Active Medications Active Medications: Current Medications Generic Name Dose Route Start Last Admin Trade Name Freq PRN Reason Stop Dose Admin Cefazolin Sodium 2 gm/ Sodium 110 mls @ 150 mls/hr 11/17/23 07:30 Chloride IV 11/17/23 08:13 PREOP ONE Lactated Ringer's 1,000 mls @ 15 mls/hr 11/17/23 06:30 11/17/23 06:30 IV 15 mls/hr .Q48H SHANNON Administration PFSH Medical History Diabetes Psoriatic arthritis Restless legs Injury of head and neck Asthma CPAP (continuous positive airway pressure) dependence History of deviated nasal septum Wears glasses High cholesterol Migraine headache History of hiatal hernia Non-smoker Endocervical polyp Psoriasis Abnormal uterine bleeding Abnormal Pap smear of cervix Anxiety Asthma Home Medications ?Medication ?Instructions ?Recorded ?Last Taken ?Type albuterol sulfate 90 mcg/actuation 1 puff inhalation Q6H PRN 06/28/17 12/29/21 History aerosol inhaler (ProAir HFA) shortness of breath or wheezing fluticasone 250 mcg-salmeterol 50 1 inh inhalation DAILY 06/28/17 11/14/23 History mcg/dose blistr powdr for inhalation (Advair Diskus) atorvastatin 10 mg tablet (Lipitor) 10 mg PO DAILY 01/24/20 11/16/23 History dupilumab 300 mg/2 mL subcutaneous 300 mg subcut .COMPLEX 01/24/20 11/02/23 History pen injector (Dupixent) psyllium husk 0.4 gram capsule 0.4 g PO DAILY PRN constipation 03/09/23 11/16/23 History (Daily Fiber) naproxen 500 mg tablet (Naprosyn) 500 mg PO BID PRN pain #20 tabs 10/13/23 Unknown Rx estradiol 0.0375 mg/24 hr 1 patch transdermal .EVERY 3 DAYS 11/10/23 11/16/23 History semiweekly transdermal patch (Adelina) metformin 500 mg tablet,extended 1,000 mg PO QPM 11/10/23 11/16/23 History release 24 hr omeprazole 40 mg capsule,delayed 40 mg PO QHS 11/10/23 11/16/23 History release progesterone micronized 100 mg 100 mg PO QHS 11/10/23 11/16/23 History capsule tirzepatide (weight loss) 10 10 mg subcut QWEEK 11/10/23 10/27/23 History mg/0.5 mL subcutaneous pen injector (Zepbound) Allergy/AdvReac Type Severity Reaction Status Date / Time No Known Allergies Allergy Verified 11/17/23 06:30 Family History Father Colon cancer Grandfather Colon cancer paternal Brother Colon cancer Mother Breast cancer, Onset Age: 71 Uncle Colon cancer Grandfather Colon cancer maternal Surgical History Hx of esophagogastroduodenoscopy Hx of colonoscopy History of Hx of dilation and curettage Hx of tonsillectomy Hx of breast reduction, elective H/O LEEP Social History Smoking Status: Never smoker alcohol intake: current details: social substance use type: does not use caffeine: Yes what type of physical activity do you participate in: walking seatbelt use: always do you feel safe at home: Yes additional social history: 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
--- NOTE | 2023-11-17 07:40 | PCM.OPRPT ---
Report of Operation Date of Procedure: 11/17/23 Pre-Operative Diagnosis: Bilateral kidney stones Post-Operative Diagnosis: Same Surgery/Procedure Performed:: Left renal extracorporal shockwave lithotripsy Surgeon: Jyotsna Mcwilliams Type of Anesthesia: General Specimen's removed: None Description of Procedure: The patient is a 53-year-old female found to have bilateral kidney stones who presents for surgical intervention today on the left side. Informed consent was obtained. She was taken to the operating room and placed on the lithotripsy table. Anesthesia monitored the head, neck, airway, IV access and vital signs throughout the case. Once anesthesia was appropriately administered she was aligned with the lithotripter and her stones were easily visualized in the lower pole. 3000 shockwaves were applied to the stones which appeared to be fragmented at the conclusion of the case. She was awakened and taken to the recovery room in good condition. There were no complications during this procedure. Grafts/Implants Used: None Complications None Admit VTE Documentation VTE Present on Admission: Yes VTE Mechan Device Prophylaxis: SCD's VTE Pharm Prophylaxis ordered?: No Reason prophylaxis not ordered:: Treatment Not Indicated
[2023-11-17] MEDS: Cefazolin 2 GM in 0.9% Normal Saline (100mL Bag) 100 ML IV (07:45)
--- NOTE | 2023-11-17 07:45 | DCINST_ITS ---
Discharge Instructions Diet Discharge Diet: No restrictions Activity Discharge Activity: Return to Normal Activity Dressing / Incision Call your doctor if you observe: Fever of 101 or Higher, Inability to urinate and Inability to have a bowel movement Follow Up Care Please Follow Up With: Jyotsna Mcwilliams MD When: As scheduled for the next procedure. Test Results: Test results from this visit will be discussed in further detail at your follow- up appointment, if applicable. Discharge Plan Admission Attending Provider: Jyotsna Mcwilliams Primary Care Provider: Clark Uribe Instructions Print Language: Jamaican Discharge Orders/Prescriptions Prescriptions: New oxycodone-acetaminophen [Percocet] 5-325 mg tablet 1 tab PO Q8H PRN (Reason: pain) 3 Days Qty: 10 0RF cephalexin 500 mg capsule 500 mg PO Q12 3 Days Qty: 6 0RF Continued fluticasone propion-salmeterol [Advair Diskus] 250-50 mcg/dose blister with device 1 inh INHALATION DAILY albuterol sulfate [ProAir HFA] 90 mcg/actuation HFA aerosol inhaler 1 puff INHALATION Q6H PRN (Reason: shortness of breath or wheezing) Dupixent Pen 300 mg/2 mL pen injector 300 mg SC .COMPLEX Rx Instructions: 300 mg subcut once every 15 days; atorvastatin [Lipitor] 10 mg tablet 10 mg PO DAILY psyllium husk [Daily Fiber] 0.4 gram capsule 0.4 g PO DAILY PRN (Reason: constipation) estradiol [Adelina] 0.0375 mg/24 hr patch semiweekly 1 patch transdermal .EVERY 3 DAYS progesterone micronized 100 mg capsule 100 mg PO QHS omeprazole 40 mg capsule,delayed release(DR/EC) 40 mg PO QHS metformin 500 mg tablet extended release 24 hr 1,000 mg PO QPM Zepbound 10 mg/0.5 mL pen injector 10 mg subcut QWEEK naproxen [Naprosyn] 500 mg tablet 500 mg PO BID PRN (Reason: pain) Qty: 20 0RF Referrals / Follow Up: Clark Uribe MD [Primary Care Provider] - Disposition Disposition (needs filled in before D/C Order can be placed): Home, Self Care
--- NOTE | 2023-11-17 08:48 | PCM.POST.ANE ---
Anesthesia: Postop Eval I Current Vital Signs Temperature: 97.3 F Pulse Rate: 84 Blood Pressure: 109/61 Respiratory Rate: 16 Pulse Ox: 94 Oxygen Delivery Method: Room Air Assessment Airway patent: Yes Spontaneous unlabored respirations: Yes Mental status: Awake and Calm nausea: No Vomiting: No Anesthesia Complication: No Fluid Hydration Crystalloid volume administer (ml): 600 Total IV fluid infused: 600 Progress Note Anesthesia document: Postop Eval 1 completed: Yes
--- NOTE | 2023-11-17 09:10 | POSTOPAN2_ITS ---
Anesthesia Postop Eval I Sum Postop Eval Completion status Anesthesia document: Postop Eval 1 completed: Yes Anesthesia Postop Eval I Summary Anesthesia Postop Eval I Summary: Anesthesia Postop Eval I: Assessment Summary Airway patent Yes 11/17/23 08:49 CLOSING MACHINE OPERATOR.RAMESHOBReema Spontaneous unlabored Yes 11/17/23 08:49 CLOSING MACHINE OPERATOR.DAMION respirations Mental status Awake,Calm 11/17/23 08:49 CLOSING MACHINE OPERATOR.DAMION nausea No 11/17/23 08:49 CLOSING MACHINE OPERATOR.DAMION Vomiting No 11/17/23 08:49 CLOSING MACHINE OPERATOR.DAMION Anesthesia Postop Eval I: Fluid Summary Crystalloid volume administer 600 11/17/23 08:49 CLOSING MACHINE OPERATOR.NIEVESY (ml) Colloids volume administered ( ml) Blood Product volume administered (ml) Total IV fluid infused 600 11/17/23 08:49 CLOSING MACHINE OPERATOR.DAMION Anesthesia Postop Eval I: Summary Notes Anesthesia Complication No 11/17/23 08:49 CLOSING MACHINE OPERATORROSSANA Anesthesia Complication Comment: Post-operative progress note Anesthesia: Postop Eval II Evaluation Mental status: Awake Pain Level: 0 nausea: No Vomiting: No
--- NOTE | 2023-11-17 09:10 | PCM.POSTANE2 ---
Anesthesia Postop Eval I Sum Postop Eval Completion status Anesthesia document: Postop Eval 1 completed: Yes Anesthesia Postop Eval I Summary Anesthesia Postop Eval I Summary: Anesthesia Postop Eval I: Assessment Summary Airway patent Yes 11/17/23 08:49 RUCHING MACHINE OPERATOR.RAMESHOBReema Spontaneous unlabored Yes 11/17/23 08:49 RUCHING MACHINE OPERATOR.DAMION respirations Mental status Awake,Calm 11/17/23 08:49 RUCHING MACHINE OPERATOR.DAMION nausea No 11/17/23 08:49 RUCHING MACHINE OPERATOR.DAMION Vomiting No 11/17/23 08:49 RUCHING MACHINE OPERATOR.DAMION Anesthesia Postop Eval I: Fluid Summary Crystalloid volume administer 600 11/17/23 08:49 RUCHING MACHINE OPERATOR.NIEVESY (ml) Colloids volume administered ( ml) Blood Product volume administered (ml) Total IV fluid infused 600 11/17/23 08:49 RUCHING MACHINE OPERATOR.DAMION Anesthesia Postop Eval I: Summary Notes Anesthesia Complication No 11/17/23 08:49 RUCHING MACHINE OPERATORROSSANA Anesthesia Complication Comment: Post-operative progress note Anesthesia: Postop Eval II Evaluation Mental status: Awake Pain Level: 0 nausea: No Vomiting: No
[2023-11-17] MEDS: oxyCODONE 5 MG Tablet PO (09:37)
== END 2023-11-17 10:53 | disposition home or self-care (01) ==
LOC: SDC 06:06 → AC 06:10
PROVIDERS: Anesthesiology; PCP Family Medicine; Referring Provider Urology; Visit Provider Urology
PROC: (CPT 50590; principal; 2023-11-17 07:20)
DX: N20.0 Calculus of kidney (principal); E11.9 Type 2 diabetes mellitus without complications; E78.00 Pure hypercholesterolemia, unspecified; J45.909 Unspecified asthma, uncomplicated; F41.9 Anxiety disorder, unspecified; N95.2 Postmenopausal atrophic vaginitis; N39.41 Urge incontinence; Z79.51 Long term (current) use of inhaled steroids; Z79.899 Other long term (current) drug therapy; Z79.84 Long term (current) use of oral hypoglycemic drugs
CPT/HCPCS: 50590; 00873; 81025; J7120; J2405

== ENCOUNTER 2023-12-01 10:06 | Day surgery (SDC) | payer BC, SELFPAY ==
[2023-12-01] VITALS (10 sets, daily range): BP systolic 90–112; BP diastolic 44–74; PULSE 75–84; RESP 16–18; TEMP 36.2–36.6; O2SAT 92–98; BMI 35.1
[2023-12-01 10:31] LABS: Internal QC Validated? YES +Cl - CLEAR BKGD; Pregnancy, Urine Negative Negative
--- NOTE | 2023-12-01 10:47 | DCINST_ITS ---
Discharge Instructions Diet Discharge Diet: No restrictions Activity Discharge Activity: Return to Normal Activity May resume sexual activity in: No Restrictions Dressing / Incision Call your doctor if you observe: Fever of 101 or Higher, Inability to urinate and Inability to have a bowel movement Follow Up Care Please Follow Up With: Jyotsna Mcwilliams MD When: In the office with a KUB in 2 to 3 weeks Test Results: Test results from this visit will be discussed in further detail at your follow- up appointment, if applicable. Discharge Plan Admission Attending Provider: Jyotsna Mcwilliams Primary Care Provider: Clark Uribe Instructions Print Language: Bulgarian Discharge Orders/Prescriptions Prescriptions: New oxycodone-acetaminophen [Percocet] 5-325 mg tablet 1 tab PO Q8H PRN (Reason: pain) 3 Days Qty: 10 0RF cephalexin 500 mg capsule 500 mg PO Q12 3 Days Qty: 6 0RF ondansetron 4 mg tablet,disintegrating 4 mg PO Q8H PRN (Reason: nausea and vomiting) Qty: 10 0RF Continued fluticasone propion-salmeterol [Advair Diskus] 250-50 mcg/dose blister with device 1 inh INHALATION DAILY albuterol sulfate [ProAir HFA] 90 mcg/actuation HFA aerosol inhaler 1 puff INHALATION Q6H PRN (Reason: shortness of breath or wheezing) Dupixent Pen 300 mg/2 mL pen injector 300 mg SC .COMPLEX Rx Instructions: 300 mg subcut once every 15 days; atorvastatin [Lipitor] 10 mg tablet 10 mg PO DAILY psyllium husk [Daily Fiber] 0.4 gram capsule 0.4 g PO DAILY PRN (Reason: constipation) estradiol [Adelina] 0.0375 mg/24 hr patch semiweekly 1 patch transdermal .EVERY 3 DAYS progesterone micronized 100 mg capsule 100 mg PO QHS omeprazole 40 mg capsule,delayed release(DR/EC) 40 mg PO QHS metformin 500 mg tablet extended release 24 hr 1,000 mg PO QPM Zepbound 10 mg/0.5 mL pen injector 10 mg subcut STEELE cephalexin 500 mg capsule 500 mg PO Q12 3 Days Qty: 6 0RF naproxen [Naprosyn] 500 mg tablet 500 mg PO BID PRN (Reason: pain) Qty: 20 0RF Referrals / Follow Up: Clark Uribe MD [Primary Care Provider] - Disposition Disposition (needs filled in before D/C Order can be placed): Home, Self Care
--- NOTE | 2023-12-01 10:52 | OP.PCM_ITS ---
Report of Operation Date of Procedure: 12/01/23 Pre-Operative Diagnosis: Right renal stones Post-Operative Diagnosis: Same Surgery/Procedure Performed:: Right renal extracorporal shockwave lithotripsy Surgeon: Jyotsna Mcwilliams Type of Anesthesia: General Specimen's removed: None Drains: None Description of Procedure: The patient is a 53-year-old female with bilateral renal stones who now presents for definitive intervention for the right side. Informed consent was obtained. The patient was taken to the operating room and placed on the operating room table. Anesthesia monitored the head, neck, airway, IV access and vital signs throughout the case. Once anesthesia was appropriately administered, she was aligned with the lithotripter and her stones were visualized. 3000 shocks were applied to the stones that appeared to be well fragmented at the conclusion of the case. She was then awakened and taken to the recovery room in good con dition. There were no complications during this procedure. Grafts/Implants Used: None Complications None Admit VTE Documentation VTE Present on Admission: Yes VTE Mechan Device Prophylaxis: SCD's VTE Pharm Prophylaxis ordered?: No Reason prophylaxis not ordered:: Treatment Not Indicated
--- NOTE | 2023-12-01 10:59 | PRE.ANES_ITS ---
ASA Classification* ASA Classification ASA Classification: 2 Assessment & Plan Anesthesia* Anesthesia Assessment Anesthesia Assessment: Discussed sedation and/or anesthesia options, risks, benefits, and alternatives with patient/parents/legal guardian/POA. Questions invited. The patient/parents/legal guardian/POA seems to understand and agrees to proceed with anesthesia plan. Reviewed the physical assessment, medical history, allergy history and patient home medications list prior to surgery/procedure/anesthetic and documented any changes. Performed airway and anesthesia risk assessments. Anesthesia Type Anesthesia Type: General (see written pre anesthesia record for full assessment) Anesthesia Focused Assessment* Temperature: 97.4 F Pulse Rate: 77 Blood Pressure: 103/74 Respiratory Rate: 16 Pulse Ox: 97 Airway Assessment Mouth opens: >3 cm Mallampati Score: II Focused Labs Anesthesia Preop lab: CBC WBC 9.5 K/mm3 (4.4-11.0) 10/13/23 00:28 RBC 4.66 M/mm3 (4.2-5.4) 10/13/23 00:28 Hgb 13.9 g/dL (12.0-15.0) 10/13/23 00:28 Hct 40.8 % (37-47) 10/13/23 00:28 Plt Count 320 K/mm3 (150-450) 10/13/23 00:28 CHEMISTRY Potassium 3.5 mmol/L (3.5-5.1) 10/13/23 00:28 Sodium 137 mmol/L (136-145) 10/13/23 00:28 BUN 14 mg/dL (7-18) 10/13/23 00:28 Creatinine 0.81 mg/dL (0.55-1.02) 10/13/23 00:28 Glucose 106 mg/dL (74-106) 10/13/23 00:28 TSH 1.67 uIU/mL (0.358-3.74) 06/28/17 11:19 COAG Urine Test Negative Negative 12/01/23 10:15 Pre-Assessment Diagnosis/Proposed Procedure Planned Operative Procedure(s): RIGHT ESWL Anesthesia History 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 When Was Last Pacemaker Check QUESTION #4 FULL TEXT: You/Your Family Experience fever (hyperthermia) with Anesthesia Last Oral Intake Last Oral intake: Last Oral Intake NPO since 00:00 12/01/23 10:34 Meds taken in AM with sips of No 12/01/23 10:34 water? Meds patient instructed to take am of surgery PONV PONV - cafeteria food server: PONV - cafeteria food server Female Yes 11/24/23 14:21 HX of Motion Sickness No 11/24/23 14:21 HX of N/V After Surgery No 11/24/23 14:21 Non-Smoker Yes 11/24/23 14:21 Duration of Surgery greater No 11/24/23 14:21 than 60 minutes Number of Risk Factors 2 11/24/23 14:21 PONV Score Moderate Risk 11/24/23 14:21 Height & Weight Height & Weight: Anesthesia: Height & Weight Height 5 ft 3 in 12/01/23 10:34 Weight: 90 kg 12/01/23 10:34 Body Mass Index (BMI) 35.1 12/01/23 10:34 Respiratory Assessment Respiratory Assessment - cafeteria food server: Respiratory Tract Infection Hx - cafeteria food server Hx Respiratory Tract Infection No 11/24/23 14:21 STOP Sleep Apnea STOP Sleep Apnea - cafeteria food server: STOP Sleep Apnea - cafeteria food server Hx Hypertension No 11/24/23 14:21 Hx Sleep Apnea Yes 11/24/23 14:21 CPAP Yes: NONCOMPLIANT 11/24/23 14:21 BIPAP No 11/24/23 14:21 Do you snore loudly (louder than talking or can be heard Do you often feel tired/ fatigued/ sleepy during daytime? Has anyone observed you stop breathing during sleep? STOP Results Positive 11/24/23 14:21 QUESTION #5 FULL TEXT : Do you snore loudly (louder than talking or can be heard through closed doors)? 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 Specify any problems Hx of Preganancy in last 3 N/A 11/24/23 14:21 Months Nurse Filling Out Transfusion NBUCHER 11/24/23 14:21 & Questions: Date: 11/24/23 11/24/23 14:21 Time: 14:22 11/24/23 14:21 Patient unable to answer at this time (ie. confused, unrespo /Reproduction History /Reproductive History - cafeteria food server: /Reproductive Hx- cafeteria food server Hx Now Gestational Age (in weeks): EDC: Hx Hx Para Hx Section SAB No 11/24/23 14:21 Active Medications Active Medications: Current Medications Generic Name Dose Route Start Last Admin Trade Name Freq PRN Reason Stop Dose Admin Cefazolin Sodium 2 gm/ Sodium 110 mls @ 150 mls/hr 12/01/23 12:45 Chloride IV 12/01/23 13:28 PREOP ONE Lactated Ringer's 1,000 mls @ 15 mls/hr 12/01/23 10:30 IV .Q48H SHANNON PFSH Medical History Kidney stones Diabetes Psoriatic arthritis Restless legs Injury of head and neck Asthma CPAP (continuous positive airway pressure) dependence History of deviated nasal septum Wears glasses High cholesterol Migraine headache History of hiatal hernia Non-smoker Endocervical polyp Psoriasis Abnormal uterine bleeding Abnormal Pap smear of cervix Anxiety Asthma Home Medications ?Medication ?Instructions ?Recorded ?Last Taken ?Type albuterol sulfate 90 mcg/actuation 1 puff inhalation Q6H PRN 06/28/17 12/29/21 History aerosol inhaler (ProAir HFA) shortness of breath or wheezing fluticasone 250 mcg-salmeterol 50 1 inh inhalation DAILY 06/28/17 11/14/23 History mcg/dose blistr powdr for inhalation (Advair Diskus) atorvastatin 10 mg tablet (Lipitor) 10 mg PO DAILY 01/24/20 11/16/23 History dupilumab 300 mg/2 mL subcutaneous 300 mg subcut .COMPLEX 01/24/20 11/02/23 History pen injector (Dupixent) psyllium husk 0.4 gram capsule 0.4 g PO DAILY PRN constipation 03/09/23 11/16/23 History (Daily Fiber) naproxen 500 mg tablet (Naprosyn) 500 mg PO BID PRN pain #20 tabs 10/13/23 Unknown Rx estradiol 0.0375 mg/24 hr 1 patch transdermal .EVERY 3 DAYS 11/10/23 11/16/23 History semiweekly transdermal patch (Adelina) metformin 500 mg tablet,extended 1,000 mg PO QPM 11/10/23 11/16/23 History release 24 hr omeprazole 40 mg capsule,delayed 40 mg PO QHS 11/10/23 11/16/23 History release progesterone micronized 100 mg 100 mg PO QHS 11/10/23 11/16/23 History capsule tirzepatide (weight loss) 10 10 mg subcut STEELE 11/10/23 10/27/23 History mg/0.5 mL subcutaneous pen injector (Zepbound) cephalexin 500 mg capsule 500 mg PO Q12 post-operative 3 11/17/23 Unknown Rx days #6 CAPSULES cephalexin 500 mg capsule 500 mg PO Q12 post-operative 3 12/01/23 Unknown Rx days #6 CAPSULES ondansetron 4 mg disintegrating 4 mg PO Q8H PRN nausea and 12/01/23 Unknown Rx tablet vomiting #10 tabs oxycodone-acetaminophen 5 mg-325 1 tab PO Q8H PRN pain 3 days #10 12/01/23 Unknown Rx mg tablet (Percocet) tabs Allergy/AdvReac Type Severity Reaction Status Date / Time No Known Allergies Allergy Verified 12/01/23 10:29 Family History Father Colon cancer Grandfather Colon cancer paternal Brother Colon cancer Mother Breast cancer, Onset Age: 71 Uncle Colon cancer Grandfather Colon cancer maternal Surgical History Hx of esophagogastroduodenoscopy Hx of colonoscopy History of Hx of dilation and curettage Hx of tonsillectomy Hx of breast reduction, elective H/O LEEP Social History Smoking Status: Never smoker alcohol intake: current details: social substance use type: does not use caffeine: Yes what type of physical activity do you participate in: walking seatbelt use: always do you feel safe at home: Yes additional social history: 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
[2023-12-01 11:05] LABS: Bedside Glucose 90 mg/dL (74-106)
[2023-12-01] MEDS: Cefazolin 2 GM in 0.9% Normal Saline (100mL Bag) 100 ML IV (11:23)
--- NOTE | 2023-12-01 12:21 | PCM.POST.ANE ---
Anesthesia: Postop Eval I Current Vital Signs Temperature: 97.1 F Pulse Rate: 84 Blood Pressure: 112/66 Respiratory Rate: 18 Pulse Ox: 93 Oxygen Delivery Method: Room Air Assessment Airway patent: Yes Spontaneous unlabored respirations: Yes Mental status: Awake and Calm nausea: No Vomiting: No Anesthesia Complication: No Fluid Hydration Crystalloid volume administer (ml): 500 Total IV fluid infused: 500 Progress Note Anesthesia document: Postop Eval 1 completed: Yes
--- NOTE | 2023-12-01 13:15 | POSTOPAN2_ITS ---
Anesthesia Postop Eval I Sum Postop Eval Completion status Anesthesia document: Postop Eval 1 completed: Yes Anesthesia Postop Eval I Summary Anesthesia Postop Eval I Summary: Anesthesia Postop Eval I: Assessment Summary Airway patent Yes 12/01/23 12:22 WEIGHT [email or web address] Spontaneous unlabored Yes 12/01/23 12:22 WEIGHT [email or web address] respirations Mental status Awake,Calm 12/01/23 12:22 WEIGHT [email or web address] nausea No 12/01/23 12:22 WEIGHT CALLER.SCHR Vomiting No 12/01/23 12:22 WEIGHT [email or web address].SCHR Anesthesia Postop Eval I: Fluid Summary Crystalloid volume administer 500 12/01/23 12:22 WEIGHT CALLER.SCHR (ml) Colloids volume administered ( ml) Blood Product volume administered (ml) Total IV fluid infused 500 12/01/23 12:22 WEIGHT [email or web address].SCHR Anesthesia Postop Eval I: Summary Notes Anesthesia Complication No 12/01/23 12:22 WEIGHT [email or web address].SCHR Anesthesia Complication Comment: Post-operative progress note Anesthesia: Postop Eval II Evaluation Mental status: Awake Pain Level: 0 nausea: No Vomiting: No
--- NOTE | 2023-12-01 13:15 | PCM.POSTANE2 ---
Anesthesia Postop Eval I Sum Postop Eval Completion status Anesthesia document: Postop Eval 1 completed: Yes Anesthesia Postop Eval I Summary Anesthesia Postop Eval I Summary: Anesthesia Postop Eval I: Assessment Summary Airway patent Yes 12/01/23 12:22 CUT OFF SAW TENDER METAL.[email or web address] Spontaneous unlabored Yes 12/01/23 12:22 CUT OFF SAW TENDER METAL.SCHR respirations Mental status Awake,Calm 12/01/23 12:22 CUT OFF SAW TENDER METAL.SCHR nausea No 12/01/23 12:22 CUT OFF SAW TENDER METAL.SCHR Vomiting No 12/01/23 12:22 CUT OFF SAW TENDER METAL.SCHR Anesthesia Postop Eval I: Fluid Summary Crystalloid volume administer 500 12/01/23 12:22 CUT OFF SAW TENDER METAL.SCHR (ml) Colloids volume administered ( ml) Blood Product volume administered (ml) Total IV fluid infused 500 12/01/23 12:22 CUT OFF SAW TENDER METAL.SCHR Anesthesia Postop Eval I: Summary Notes Anesthesia Complication No 12/01/23 12:22 CUT OFF SAW TENDER METAL.SCHR Anesthesia Complication Comment: Post-operative progress note Anesthesia: Postop Eval II Evaluation Mental status: Awake Pain Level: 0 nausea: No Vomiting: No
== END 2023-12-01 13:36 | disposition home or self-care (01) ==
LOC: SDC 10:13 → AC 10:14
PROVIDERS: Anesthesiology; PCP Family Medicine; Referring Provider Urology; Visit Provider Urology
PROC: (CPT 50590; principal; 2023-12-01 11:15)
DX: N20.0 Calculus of kidney (principal); L40.50 Arthropathic psoriasis, unspecified; E11.9 Type 2 diabetes mellitus without complications; N39.41 Urge incontinence; N95.1 Menopausal and female climacteric states; R12 Heartburn; E66.8 Other obesity; E78.00 Pure hypercholesterolemia, unspecified; K44.9 Diaphragmatic hernia without obstruction or gangrene; G47.30 Sleep apnea, unspecified; G43.909 Migraine, unspecified, not intractable, without status migrainosus; J45.909 Unspecified asthma, uncomplicated; Z68.34 Body mass index [BMI] 34.0-34.9, adult; Z79.84 Long term (current) use of oral hypoglycemic drugs; Z87.442 Personal history of urinary calculi; Z79.899 Other long term (current) drug therapy
CPT/HCPCS: 81025; 82962; J7120; J2405

== ENCOUNTER 2024-10-17 19:43 | Emergency (ER) | payer BC, SELFPAY ==
[2024-10-17 19:44] VITALS: BP 127/96; PULSE 100; RESP 18; TEMP 37.1; O2SAT 100; BMI 29.7
--- NOTE | 2024-10-17 20:00 | CT_ITS ---
PROCEDURE: ABDOMEN/PELVIS WITHOUT CONT 10/17/2024 REASON FOR EXAM: KIDNEY STONE TECHNIQUE: ABDOMEN/PELVIS WITHOUT CONT Noncontrast technique limits evaluation of the abdominal and pelvic viscera. Coronal and Sagittal reconstruction series were provided. One or more dose reduction techniques were used (e.g., Automated exposure control, adjustment of the mA and/or kV according to patient size, use of iterative reconstruction technique). RADIATION DOSE SUMMARY: CTDlvol: 8 mGy DLP: 402 mGycm COMPARISON: 10/13/2023 FINDINGS: Clear lung bases. Normal heart size. Liver cyst. Normal gallbladder, pancreas, spleen, adrenal glands. Extensive bilateral nephrolithiasis, renal stones measure up to 6 mm. No hydronephrosis or ureteral stone. Normal bladder. Normal uterus and ovaries. No retroperitoneal or pelvic adenopathy. No free air. Small hiatal hernia. Nonobstructed bowel. Multiple distal small-bowel loops are borderline prominent and there is distal small bowel hypomotility in the terminal ileum. No signs of appendicitis. No acute large bowel findings. Lumbar spine degeneration. No acute abdominal wall findings. CT/Abdomen/Pelvis without Cont IMPRESSION: Extensive bilateral nephrolithiasis. No hydronephrosis or ureteral stone. Mildly abnormal distal small bowel, correlate for enteritis such as secondary t o infection. Reading Location: [place] [id number]
--- NOTE | 2024-10-17 20:01 | EDS_ITS ---
HPI History of Present Illness Chief Complaint: Complaint Detail of Chief Complaint: Flank pain approximately 1 week ago. Now lower abdominal pain abruptly wor Informant: patient Onset/Context/Timing Onset: Today and Weeks Context: Sudden Onset (Sudden lower abdominal pain 3 hours ago) Timing: Continuous Quality: Colicky Location: Left suprapubic Current Severity: Severe Maximum Severity: Severe Worsened by: Nothing Relieved by: Nothing Associated Symptoms Associated Symptoms: Nausea, dysuria, frequency, urgency and hematuria Narrative Narrative: Patient is a 54-year-old woman. Her drove her to the hospital. She had lithotripsy for right renal stones. Review of Dr. Mcwilliams's operative note indicates she had bilateral renal stones. She had 3000 shocks applied and the stones appeared to fragment well at the conclusion of the case. The lithotripsy was performed December 01, 2023. Patient states she has history of numerous stones. Patient states about 1 to 1.5 weeks ago she developed flank pain. Pain resolved after 24 hours. She has had dysuria, frequency and hematuria. 3 hours prior to presentation the pain became intense and is colicky and there is no alleviating or precipitating or aggravating factors. She does report subjective fever with chills. She is postmenopausal. She is on hormonal therapy. There is no history of direct or indirect trauma. She has not noted any skin lesions. She does have type 2 diabetes on metformin. She also has hypercholesterolemia. Prior similar symptoms: Yes Recent Illness/Hospitalization: No [facility] Medical History (Updated 10/17/24 @ 21:[address] Sadi Lawrence MD) GERD (gastroesophageal reflux disease) Sleep apnea Kidney stones Diabetes Psoriatic arthritis Restless legs Injury of head and neck Asthma CPAP (continuous positive airway pressure) dependence History of deviated nasal septum Wears glasses High cholesterol Migraine headache History of hiatal hernia Non-smoker Endocervical polyp Psoriasis Abnormal uterine bleeding Abnormal Pap smear of cervix Anxiety Asthma Home Medications ?Medication ?Instructions ?Recorded ?Last Taken ?Type albuterol sulfate 90 mcg/actuation 1 puff inhalation Q 6H PRN 06/28/17 12/29/21 History aerosol inhaler (ProAir HFA) shortness of breath or wh eezing fluticasone 250 mcg-salmeterol 50 1 inh inhalation KARLENE LY 06/28/1711/13/ H istory mcg/dose blistr powdr for inhalation (Advair Diskus) dupilumab 300 mg/2 mL subcutaneous 300 mg subcut .COMP ALEXANDRE 01/24/20 10/06/24 History pen injector (Dupixent) psyllium husk 0.4 gram capsule 0.4 g PO DAILY PRN cons tipation 03/09/23 11/16/23 History (Daily Fiber) naproxen 500 mg tablet (Naprosyn) 500 mg PO BID PRN pa in #20 tabs 10/13/23 Unknown Rx estradiol 0.0375 mg/24 hr 1 patch transdermal .EVERY 3 DAYS 11/10/23 11/16/23 History semiweekly transdermal patch (Adelina) omeprazole 40 mg capsule,delayed 40 mg PO QHS 11/10/23 11/16/23 History release progesterone micronized 100 mg 100 mg PO QHS 11/10/23 11/16/23 History capsule tirzepatide (weight loss) 10 10 mg subcut STEELE 11/10/23 10/27/23 History mg/0.5 mL subcutaneous pen injector (Zepbound) ondansetron 4 mg disintegrating 4 mg PO Q8H PRN nausea and 12/01/23 Unknown Rx tablet vomiting #10 tabs hydrocodone-acetaminophen 5-325mg 1 tab PO Q6H PRN PRN Pain 3 days 10/17/24 Unknown Rx 5mg-325mg #10 TABLETS naproxen 500 mg tablet 500 mg PO BID #14 tabs 10/17 Unknown Rx Allergy/AdvReac Type Severity Reaction Status Date / Time No Known Allergies Allergy Verified 10/17/24 19:47 Family History Father Colon cancer Grandfather Colon cancer paternal Brother Colon cancer Mother Breast cancer, Onset Age: 71 Uncle Colon cancer Grandfather Colon cancer maternal Surgical History Hx of esophagogastroduodenoscopy Hx of colonoscopy History of Hx of dilation and curettage Hx of tonsillectomy Hx of breast reduction, elective H/O LEEP Social History Smoking Status: Never smoker alcohol intake: current details: social substance use type: does not use caffeine: Yes what type of physical activity do you participate in: walking seatbelt use: always do you feel safe at home: Yes additional social history: 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 Musculoskeletal Musculoskeletal: Denies arthralgias, back pain or myalgias Integumentary Denies rash Hematologic/Lymphatic Hematologic/Lymphatic: Reports systems reviewed and no addt'l complaints, except as documented EXAM Physical Exam Const Vital Signs: 10/17/24 19:44 Temperature 98.7 F Temperature Source Temporal Pulse Rate 100 Respiratory Rate 18 Blood Pressure 127/96 H Blood Pressure Mean 106 Pulse Ox 100 Positive well nourished and well developed Constitutional Narrative: Patient is in obvious discomfort. She is rocking on the chair. General Appearance ED: well developed; Negative for pallor HEENT Reports moist mucous membranes HEENT Narrative: Head is atraumatic normocephalic. Ears normal. Eyes PERRL and EOMs intact bilaterally Neck supple and no JVD Resp normal respiratory effort and clear to auscultation bilaterally Cardio regular rate, regular rhythm, S1 normal heart sound, S2 normal heart sound and no murmurs GI normal to inspection, nondistended, normoactive bowel sounds, non-distended and no masses; Negative for non-tender or hepatosplenomegaly Auscultation: hypoactive bowel sounds Palpation: soft and tender suprapubic Back/Spine no CVA tenderness Extremity normal to inspection General Extremety ED: Negative for edema or tenderness General Extremity: Negative for edema Neuro oriented x3 and CN's II-XII intact bilaterally Sensorium / Orientation: alert Motor Exam: strength 5/5 throughout Psych mental status grossly normal Skin no rashes or lesions noted, no wounds and skin turgor normal General Skin Exam: elasticity normal; Negative for jaundice or pallor MDM MDM MDM Narrative Medical decision making narrative: Patient's history and physical is suggestive of obstructing ureteral stone. Because she complains of subjective fever with chills we will obtain CBC to assess white count differential UA to evaluate for infection and BMP to assess glucose CO2 anion gap since she is diabetic as well as renal function. She was medicated with Zofran for the nausea, ketorolac and morphine for her pain. She received 0.1 mg/kg of morphine IV push. History & Record Review Additional record(s) reviewed:: Prior outpatient record (Operative note authored by Dr. Mcwilliams November 2023), Prior ED visit and Prior labs Lab Data Lab results narrative: CBC is normal. Basic metabolic panel is normal. Urinalysis is positive for protein and leukoesterase. She has 5-10 WBCs with no bacteria. Labs: Laboratory Results - last 24 hr 10/17/24 20:18 WBC 9.9 RBC 4.14 L Hgb 13.1 Hct 37.6 MCV 90.8 MCH 31.6 MCHC 34.8 RDW Std Deviation 42.9 RDW Coeff of John 12.9 Plt Count 290 MPV 10.2 Immature Gran % (Auto) 0.200 Neut % (Auto) 57.1 Lymph % (Auto) 33.4 [place] % (Auto) 6.1 Eos % (Auto) 2.5 Baso % (Auto) 0.7 Absolute Neuts (auto) 5.7 Absolute Lymphs (auto) 3.32 Nucleated RBC % 0 Sodium 137 Potassium 4.1 Chloride 102 Carbon Dioxide 23.3 Anion Gap 12 BUN 12 Creatinine 0.84 Estim Creat Clear Calc 75.71 Est GFR (MDRD) Non-Af 83 BUN/Creatinine Ratio 13.7 Glucose 95 Calcium 9.4 Urine Color Yellow Urine Clarity Clear Urine pH 6.5 Ur Specific [place] 1.010 Urine Protein 30 H Urine Glucose (UA) Normal Urine Ketones Negative Urine Occult Blood 50 H Urine Nitrite Negative Urine Bilirubin Negative Urine Urobilinogen Normal Ur Leukocyte Esterase 100 H Urine RBC 0-5 SEEN Urine WBC 5-10 SEEN Ur Squamous Epith Cells 0-5 SEEN Urine Bacteria 0 SEEN Urine Mucus 0 SEEN Radiography Diagnostic Testing: Clinical Impression(s) from Imaging Studies Abdomen/Pelvis CT 10/17/24 20:00 IMPRESSION: Extensive bilateral nephrolithiasis. No hydronephrosis or ureteral stone. Mildly abnormal distal small bowel, correlate for enteritis such as secondary to infection. Reading Location: [place] [id number] Patient has no GI symptoms i.e. diarrhea. Treatment and Re-Evaluation :: Patient was informed of her laboratory results, urinalysis and CT results. She is no longer writhing in pain. She feels quite comfortable. Plan is to discharge to home with prescription for Naprosyn and [place]. She was instructed to follow-up with Dr. Mcwilliams. Discharge Plan Triage Chief Complaint: Complaint ED Provider: Sadi Lawrence Dx/Rx/DC Orders Clinical Impression: Bilateral kidney stones, Renal colic Instructions: ED Kidney Stone with Pain Prescriptions: New hydrocodone-acetaminophen 5-325 mg tablet 1 tab PO Q6H PRN PRN (Reason: Pain) 3 Days Qty: 10 0RF naproxen 500 mg tablet 500 mg PO BID Qty: 14 0RF No Action fluticasone propion-salmeterol [Advair Diskus] 250-50 mcg/dose blister with device 1 inh INHALATION DAILY albuterol sulfate [ProAir HFA] 90 mcg/actuation HFA aerosol inhaler 1 puff INHALATION Q6H PRN (Reason: shortness of breath or wheezing) Dupixent Pen 300 mg/2 mL pen injector 300 mg SC .COMPLEX Rx Instructions: 300 mg subcut once every 15 days; psyllium husk [Daily Fiber] 0.4 gram capsule 0.4 g PO DAILY PRN (Reason: constipation) estradiol [Adelina] 0.0375 mg/24 hr patch semiweekly 1 patch transdermal .EVERY 3 DAYS progesterone micronized 100 mg capsule 100 mg PO QHS omeprazole 40 mg capsule,delayed release(DR/EC) 40 mg PO QHS Zepbound 10 mg/0.5 mL pen injector 10 mg subcut STEELE naproxen [Naprosyn] 500 mg tablet 500 mg PO BID PRN (Reason: pain) Qty: 20 0RF ondansetron 4 mg tablet,disintegrating 4 mg PO Q8H PRN (Reason: nausea and vomiting) Qty: 10 0RF Primary Care Provider: Clark Uribe Referrals: Jyotsna Mcwilliams MD [Med Staff - Active Staff] - 3-5 Days Clark Uribe MD [Primary Care Provider] - Print Language: Thai Disposition Disposition: Home, Self Care
[2024-10-17] MEDS: 0.9% Normal Saline (1000mL) 1,000 ML 250 ML IV (20:19)
--- OUTSIDE RECORDS SUMMARY | 2024-10-17 20:33 | XMS RPT_ITS | CCD ---
Author Organization [facility] Care Team Providers Care Schedule Manager Name Role Phone Clark Javed MD Primary Care Provider [phone] Dr. Clark Javed Primary Care Provider Dr. Clark Javed Referring Provider [phone] Dr. Keyonna Lainez Attending Provider [phone] Dr. Keyonna Lainez Referring Provider [phone] Dr. Keyonna Lainez Other Provider [phone] Dr. Clark Javed Primary Care Provider Dr. Clark Javed Referring Provider [phone] Dr. Keyonna Lainez Attending Provider [phone] Dr. Keyonna Lainez Referring Provider 1(330 [phone] Dr. Keyonna Lainez Other Provider [phone] Clark Javed MD Primary Care Provider [phone] Dr. Clark Javed Primary Care Provider Dr. Clark Javed Referring Provider [phone] Dr. Keyonna Lainez Attending Provider [phone] CHICHI Canales NP Attending Provider [phone] Dr. Clark Javed Primary Care Provider Dr. Clark Javed Referring Provider [phone] Dr. Keyonna Lainez Attending Provider [phone] Parker SUPERVISING FLOORPERSON, CALLIE-Sy Khan Attending Provider [phone] Dr. Clark Javed Primary Care Provider Dr. Clark Javed Referring Provider [phone] Dr. Keyonna Lainez Attending Provider [phone] Dr. Clark Javed Primary Care Provider Dr. Clark Javed Referring Provider Dr. Keyonna Lainez Attending Provider Tegan DOOLEY, Clark Dyson Primary Care Provider Tegan DOOLEY, Clark Dyson Primary Care Provider Jyotsna Mcwilliams Attending Unavailable Tegan, Clark Primary Care Unavailable Wyneski, Jyotsna Referring Unavailable Wyneski, Jyotsna Attending Unavailable Tegan, Clark Primary Care Unavailable WyneskiJyotsna Referring Unavailable Parker SUPERVISING FLOORPERSON, Erin Attending Unavailable Tegan, Clark Referring Unavailable Tegan, Clark Primary Care Unavailable JamisonnesJyotsna grant Attending Unavailable Jamisonneski, Jyotsna Referring Unavailable Tegan, Clark Primary Care Unavailable Keyonna Lainez Attending Unavailable Tegan, Clark Primary Care Unavailable Keyonna Lainez Referring Unavailable Parker SUPERVISING FLOORPERSON, Erin Attending Unavailable Parker SUPERVISING FLOORPERSON, Erin Referring Unavailable Tegan, Clark Primary Care Unavailable Tegan, Clark Primary Care Unavailable Yumiko Muller Attending Unavailable Jyotsna Mcwilliams Attending Unavailable Jamisonneski, Jyotsna Referring Unavailable Tegan, Clark Primary Care Unavailable Knoble 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.REPAIRER SHOE STICKS, Latrice Unavailable Abbey Smith PA-C Unavailable CLARK JAVED A Primary Care Unavailable NAYA PEPE Attending Unavailable NAYA PEPE Admitting Unavailable Clark Javed MD Primary Care Provider [phone] Knoble 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.REPAIRER SHOE STICKS, Latrice Unavailable Luis ADAMSON Abbey Unavailable Knoble 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.REPAIRER SHOE STICKS, Latrice Unavailable Luis ADAMSON Abbey Unavailable CLARK JAVED A Primary Care Unavailable TEGAN, CLARK A Primary Care Unavailable KAILYN GILL Attending Unavail able TEGAN, CLARK A Primary Care Unavailable TEGAN, CLARK A Attending Unavailable TEGAN, CLARK A Primary Care Unavailable HANNAH BOLAÑOS Referring Unavailable TEGAN, CLARK A Attending Unavailable TEGAN, CLARK A Primary Care Unavailable TEGAN, CLARK A Primary Care Unavailable TEGAN, CLARK A Primary Care Unavailable TEGAN, CLARK A Primary Care Unavailable TEGAN, CLARK A Referring Unavailable TEGAN, CLARK A Primary Care Unavailable NAYA PEPE Attending Unavailable TEGAN, CLARK A Primary Care Unavailable ANAY BARCLAY Attending NAYA Ayon Attending Unavailable TEGAN, CLARK A Primary Care Unavailable TEGAN, CLARK A Primary Care Unavailable TEGAN, CLARK A Primary Care Unavailable NAYA PEPE Attending Unavailable LATRICE ETIENNE Referring Unavailable HANNAH BOLAÑOS Attending Unavailable TEGAN, CLARK A Primary Care Unavailable TEGAN, CLARK A Primary Care Unavailable HANNAH BOLAÑOS Attending Unavailable HANNAH BOLAÑOS Admitting Unavailable TEGAN, CLARK A Primary Care Unavailable KAILYN GILL Attending Unavail able TEGAN, CLARK A Primary Care Unavailable NAYA PEPE Attending Unavailable TEGAN, CLARK A Primary Care Unavailable NAYA PEPE Attending Unavailable SELF Referring Unavailable KAILYN GILL Attending Unavail able TEGAN, CLARK A Primary Care Unavailable HANNAH BOLAÑOS Referring Unavailable TGEAN, CLARK A Primary Care Unavailable ANAY BARCLAY Attending Jeimy sherman TEGAN, CLARK A Primary Care Unavailable KAILYN GILL Referring Unavail able TEGAN, CLARK A Primary Care Unavailable KAILYN GILL Attending Unavail able TEGAN, CLARK A Primary Care Unavailable LATRICE ETIENNE Attending Unavailable TEGAN, CLARK A Primary Care Unavailable LATRICE ETIENNE Referring Unavailable Medications Current Medications Medication Drug Class(es) Dates Sig (Normalized) Sig (Original) acetaminophen 325 mg / oxyCODONE hydrochloride 5 mg oral tablet (9 sources) Opioid Agonist Start: 02-21-2024 End: 02-28-2024 take 1 tablet by mouth four times daily as needed for pain oxyCODONE-acetamin ophen (PERCOCET) 5-325 mg tablet Indications: Grade II hemorrhoids Take 1 tablet by mouth four times a day as needed for pain for up to 7 days. FOR PAIN. 20 tablet 02/21/2024 02/28/2024 Active Start: 11-23-2020 End: 11-26-2021 take 1 tablet by mouth every six hours Oxycodone-Acetaminophen (Percocet) 5-325 mg tablet Discontinued 1 TABLET PO EVERY 6 HOURS 12 November 23, 2020 November 26, 2021 10:03am [id number] 200 actuat albuterol 0.09 mg/actuat metered dose inhaler (20 sources) beta2-Adrenergic Agonist Start: 03-31-2023 take 2 puff(s) by inhalation every four hours as needed albuterol HFA (VENTOLIN HFA) 90 mcg/actuation inhaler Inhale 2 Puffs as instructed every 4 hours as needed. 24 g 1 03/31/2023 Active Start: 11-09-2022 take 2 puff(s) by in halation every four hours as needed albuterol HFA (VENTOLIN HFA) 90 mcg/actuation inhaler Inhale 2 Puffs as instructed every 4 hours as needed. 24 g 1 11/09/2022 Active Start: 11-01-2022 take 2 puff(s) by in halation every four hours as needed albuterol HFA (VENTOLIN HFA) 90 mcg/actuation inhaler Inhale 2 Puffs as instructed every 4 hours as needed. Do no substitute with ProAir. 24 g 1 11/01/2022 Active Start: 03-03-2021 End: 04-20-2022 take 2 puff(s) by inhalation every four hours as needed albuterol HFA (VENTOLIN HFA) 90 mcg/actuation inhaler Inhale 2 Puffs as instructed every 4 hours as needed. Do no substitute with ProAir. 24 g 1 04/20/2022 Active Start: 06-28-2017 take 1 puff(s) by in halation every six hours Albuterol Sulfate (Proair Hfa) 90 mcg/actuation HFA aerosol inhaler Active 1 PUFF INHALATION EVERY 6 HOURS June 27, 2017 11:00pm Comment on above: Inhale 2 Puffs as in structed every 4 hours as needed. Do no substitute with ProAir. Inhale 2 Puffs as in structed every 4 hours as needed. amitriptyline hydrochloride 10 mg oral tablet (1 source) Tricyclic Antidepressant Start: 2020 End: 2021 take 1 tablet by mouth once daily at bedtime amitriptyline (ELAVIL) 10 mg tablet Take 1 tablet by mouth daily at bedtime. 30 tablet 2 03/03/2021 09/01/2021 Discontinued Comment on above: Take 1 tablet by ceci th daily at bedtime. atorvastatin 20 mg oral tablet (20 sources) HMG-CoA Reductase Inhibitor Start: 2023 take 1 tablet by mouth once daily at bedtime for hyperlipidemia atorvastatin (LIPITOR) 20 mg tablet Take 1 tablet by mouth daily at bedtime. For cholesterol. 90 tablet 1 03/31/2023 Active Start: 11-01-2022 take 1 tablet by ceci th once daily at bedtime for hyperlipidemia atorvastatin (LIPITOR) 20 mg tablet Take 1 tablet by mouth daily at bedtime. For cholesterol. 90 tablet 1 11/01/2022 Active Start: 05-04-2022 take 1 tablet by ceci th once daily at bedtime for hyperlipidemia atorvastatin (LIPITOR) 20 mg tablet Take 1 tablet by mouth daily at bedtime. For cholesterol. 90 tablet 1 05/04/2022 Active Start: 01-24-2020 End: 05-04-2022 take 1 tablet by mouth once daily Atorvastatin (Lipito r) 10 mg tablet Active 10 MG PO DAILY January 24, 2020 12:00am Comment on above: Take 1 tablet by ceci th daily at bedtime. For cholesterol. azithromycin 500 mg oral tablet (1 source) Macrolide Antimicrobial Start: 09-28-19 End: 09-28-19 take 2 tablets by mouth once azithromycin (ZITHROMAX) 500 mg tablet Indications: Traveler's diarrhea Take 2 tablets by mouth one time only for 1 dose. 2 tablet 0 09/27/2022 09/27/2022 Active Comment on above: Take 2 tablets by mo uth one time only for 1 dose. cefadroxil 500 mg oral capsule (4 sources) Cephalosporin Antibacterial Start: 10-28-19 End: 11-07-19 take 1 capsule by mouth twice daily cefADROxil (DURICEF) 500 mg capsule Take 1 capsule by mouth twice daily for 10 days. 20 capsule 0 10/27/2021 11/06/2021 Active Comment on above: Take 1 capsule by mo uth twice daily for 10 days. CHOLECALCIFEROL, VITAMIN D3, ORAL (20 sources) CHOLECALCIFEROL, VITAMIN D3, ORAL Take by mouth as directed. Combined with omega 3 Active CHOLECALCIFEROL, VITAMIN D3, ORAL Take by mouth as directed. Combined with omega 3 0 Active CHOLECALCIFEROL, VITAMIN D3, ORAL Take by mouth as directed. 0 Active Comment on above: Take by mouth as dir ected. Take by mouth as dir ected. Combined with omega 3 dibucaine 0.01 mg/mg rectal ointment (1 source) Standardized Chemical Allergen Start: 02-21-2024 End: 03-12-2024 dibucaine (NUPERCAINAL) 1 % oint by RECTAL route as needed for up to 20 days. 57 g 2 02/21/2024 03/12/2024 Active 2 ml dupilumab 150 mg/ml auto-injector (20 sources) Interleukin-4 Receptor alpha Antagonist Start: 01-24-2020 Dupilumab (Dupixent Pen) 300 mg/2 mL pen injector Active 300 MG SC .COMPLEX January 24, 2020 12:00am 300 mg subcut once every 15 days; Start: 12-28-2019 End: 05-26-2024 inject 300 mg by subcutaneous injection every other week DUPIXENT SYRINGE 300 mg/2 mL injection Inject 300 mg subcutaneously every 2 weeks. 12/28/2019 05/26/2024 Discontinued 84 hr estradiol 0.47225 mg/h r transdermal system (20 sources) Estrogen Start: 04-05-2023 ADELINA 0.0375 m g/24 hr 04/05/2023 Active Start: 04-05-2023 estradiol (EST RACE) 0.01 % (0.1 mg/gram) vaginal cream 04/05/2023 Active 21 day ethinyl estradiol 0.196511 mg/hr / etonogestrel 0.005 mg/hr vaginal system (6 sources) Progestin, Estrogen Start: 05-10-2022 Etonogestrel-Ethinyl Estradiol (Nuvaring) 0.12-0.015 mg/24 hr ring Active 1 VAG RING VAGINAL ONCE 1 May 10, 2022 12:00am fluconazole 150 mg oral tablet (9 sources) Azole Antifungal Start: 07-15-2022 Fluconazole ( Diflucan) 150 mg tablet Active 150 MG PO Q3D July 14, 2022 11:00pm take one now and another tab in 72 hours Start: 01-01-2022 End: 01-15-2022 take 1 tablet by mouth once Fluconazole (Diflucan) 150 mg tablet Discontinued 150 MG PO ONCE 1 December 31, 2021 11:00pm January 15, 2022 2:54pm fluticasone / salmeterol (20 sources) Corticosteroid, beta2-Adrenergic Agonist Start: 03-31-2023 take 1 puff(s) by mouth twice daily fluticasone-salmeterol (ADVAIR DISKUS) 250-50 mcg/dose inhaler Inhale 1 Puff as instructed two times a day. Rinse and gargle mouth after use with water. 3 Each 1 03/31/2023 Active Start: 11-01-2022 take 1 puff(s) by mo ut twice daily fluticasone-salmeterol (ADVAIR DISKUS) 250-50 mcg/dose inhaler Inhale 1 Puff as instructed twice daily. Rinse and gargle mouth after use with water. 3 Each 1 11/01/2022 Active Start: 05-03-2022 take 1 puff(s) by mo ut twice daily fluticasone-salmeterol (ADVAIR DISKUS) 250-50 mcg/dose inhaler Inhale 1 Puff as instructed twice daily. Rinse and gargle mouth after use with water. 3 Each 1 05/03/2022 Active Start: 09-23-2021 take 1 puff(s) by mo ut twice daily fluticasone-salmeterol (ADVAIR DISKUS) 250-50 mcg/dose inhaler Inhale 1 Puff as instructed twice daily. Rinse and gargle mouth after use with water. 3 Each 1 09/23/2021 Active Start: 03-03-2021 End: 09-23-2021 take 1 puff(s) by mouth twice daily fluticasone-salmeterol (ADVAIR DISKUS) 250-50 mcg/dose inhaler Inhale 1 Puff as instructed twice daily. Rinse and gargle mouth after use with water. 3 Each 1 03/03/2021 09/23/2021 Discontinued Start: 03-03-2021 take 1 puff(s) by mo ut twice daily fluticasone-salmeterol (ADVAIR DISKUS) 250-50 mcg/dose inhaler Inhale 1 Puff as instructed twice daily. Rinse and gargle mouth after use with water. 3 Each 1 03/03/2021 Active Start: 06-28-2017 Fluticasone Pr opion-Salmeterol (Advair Diskus) 250-50 mcg/dose blister with device Active 1 INH INHALATION DAILY June 27, 2017 11:00pm Start: 06-28-2017 Fluticasone Pr opion-Salmeterol (Advair Diskus) 250-50 mcg/dose blister with device Active 1 INH INHALATION DAILY June 28, 2017 12:00am Comment on above: Inhale 1 Puff as ins tructed twice daily. Rinse and gargle mouth after use with water. Inhale 1 Puff as ins tructed two times a day. Rinse and gargle mouth after use with water. norethindrone 0.35 mg oral tablet (20 sources) Start: 4 take 1 tablet by mouth once daily Norethindrone, Contraceptive, 0.35 mg tablet Take 1 tablet by mouth once daily. 05/30/2023 Active Comment on above: Take 1 tablet [address] [facility] once daily. omeprazole 40 mg delayed release oral capsule (20 sources) Proton Pump Inhibitor Start: 4 End: 4 take 1 capsule by mouth once daily omeprazole (PRILOSEC) 40 mg capsule Take 1 capsule by mouth once daily. 90 capsule 1 01/03/2024 Active Start: 11-01-2022 End: 05-13-2023 take 1 capsule by mouth once daily omeprazole (PRILOSEC) 40 mg capsule Take 1 capsule by mouth once daily. 90 capsule 1 11/01/2022 05/13/2023 Discontinued Start: 05-03-2022 take 1 capsule by [facility] daily omeprazole (PRILOSEC) 40 mg capsule Take 1 capsule by mouth once daily. 90 capsule 1 05/03/2022 Active Comment on above: Take 1 capsule by [facility] once daily. 72 hr scopolamine 0.0139 mg/hr transdermal system (4 sources) Anticholinergic Start: 07-16-2024 scopolamine (TRANSDERM-SCOP) patch 1.5 mg/72 hr (delivers 1 mg over 3 days) Indications: Motion sickness, initial encounter Apply 1 patch as directed as directed. BEHIND THE EAR AT LEAST 4 HOURS PRIOR TO EXPOSURE AND EVERY 3 DAYS NEEDED. 1 patch 07/16/2024 Active sodium picosulfate-magnesium oxide-citric acid (CLENPIQ) 10 mg-3.5 gram- 12 gram/175 mL oral solution (3 sources) Start: 06-12-2024 End: 06-14-2024 sodium picosulfate-magnesium oxide-citric acid (CLENPIQ) 10 mg-3.5 gram- 12 gram/175 mL oral solution Indications: Anorectal fistula Take 175 mL by mouth as directed for 2 doses. 350 mL 06/12/2024 06/14/2024 Active Start: 05-21-2024 End: 05-23-2024 sodium picosulfate-magnesium oxide-citric acid (CLENPIQ) 10 mg-3.5 gram- 12 gram/175 mL oral solution Indications: Anorectal fistula Take 175 mL by mouth as directed for 2 doses. 350 mL 05/21/2024 05/23/2024 Start: 05-21-2024 End: 05-23-2024 sodium picosulfate-magnesium oxide-citric acid (CLENPIQ) 10 mg-3.5 gram- 12 gram/175 mL oral solution Indications: Anorectal fistula Take 175 mL by mouth as directed for 2 doses. 350 mL 05/21/2024 05/23/2024 Active tirzepatide, weight loss (ZEPBOUND) 12.5 mg/0.5 mL pen injector (13 sources) Start: 01-24-2024 End: 01-31-2024 tirzepatide, weight loss (ZEPBOUND) 12.5 mg/0.5 mL pen injector Indications: Class 2 severe obesity with serious comorbidity and body mass index (BMI) of 35.0 to 35.9 in adult, unspecified obesity type (HCC) Inject 12.5 mg subcutaneously one time a week. Patient should start on January 24, 2024. 6 mL 01/24/2024 01/31/2024 Discontinued Start: 01-24-2024 End: 04-23-2024 tirzepatide, weight loss (ZE PBOUND) 12.5 mg/0.5 mL pen injector Indications: Class 2 severe obesity with serious comorbidity and body mass index (BMI) of 35.0 to 35.9 in adult, unspecified obesity type (HCC) Inject 12.5 mg subcutaneously one time a week. Patient should start on January 24, 2024. 6 mL 01/24/2024 04/23/2024 Active Start: 12-02-2023 End: 01-03-2024 tirzepatide, weight loss (ZE PBOUND) 12.5 mg/0.5 mL pen injector Indications: Class 2 severe obesity with serious comorbidity and body mass index (BMI) of 35.0 to 35.9 in adult, unspecified obesity type (HCC) Inject 12.5 mg subcutaneously one time a week for 28 days. Patient should start on December 02, 2023. 2 mL 12/02/2023 01/03/2024 Discontinued Start: 12-02-2023 End: 12-30-2023 tirzepatide, weight loss (ZE PBOUND) 12.5 mg/0.5 mL pen injector Indications: Class 2 severe obesity with serious comorbidity and body mass index (BMI) of 35.0 to 35.9 in adult, unspecified obesity type (HCC) Inject 12.5 mg subcutaneously one time a week for 28 days. Patient should start on December 02, 2023. 2 mL 12/02/2023 12/30/2023 Active tirzepatide, weight loss (ZEPBOUND) 15 mg/0.5 mL pen injector (11 sources) Start: 07-10-2024 End: 01-06-2025 tirzepatide, weight loss (ZEPBOUND) 15 mg/0.5 mL pen injector Indications: LITO (obstructive sleep apnea) , Class 2 severe obesity with serious comorbidity and body mass index (BMI) of 35.0 to 35.9 in adult, unspecified obesity type (HCC) Inject 15 mg subcutaneously one time a week. 2 mL 5 07/10/2024 01/06/2025 Active Start: 03-23-2024 End: 04-09-2024 tirzepatide, weight loss (ZE PBOUND) 15 mg/0.5 mL pen injector Indications: Class 2 severe obesity with serious comorbidity and body mass index (BMI) of 35.0 to 35.9 in adult, unspecified obesity type (HCC) , LITO (obstructive sleep apnea) Inject 15 mg subcutaneously one time a week. 6 mL 1 03/23/2024 04/09/2024 Discontinued Start: 03-23-2024 End: 09-19-2024 tirzepatide, weight loss (ZE PBOUND) 15 mg/0.5 mL pen injector Indications: Class 2 severe obesity with serious comorbidity and body mass index (BMI) of 35.0 to 35.9 in adult, unspecified obesity type (HCC) , LITO (obstructive sleep apnea) Inject 15 mg subcutaneously one time a week. 6 mL 1 03/23/2024 09/19/2024 Active Start: 01-31-2024 End: 03-23-2024 tirzepatide, weight loss (ZE PBOUND) 15 mg/0.5 mL pen injector Indications: Class 2 severe obesity with serious comorbidity and body mass index (BMI) of 35.0 to 35.9 in adult, unspecified obesity type (HCC) Inject 15 mg subcutaneously one time a week. 6 mL 1 01/31/2024 03/23/2024 Discontinued Start: 01-31-2024 End: 07-29-2024 tirzepatide, weight loss (ZE PBOUND) 15 mg/0.5 mL pen injector Indications: Class 2 severe obesity with serious comorbidity and body mass index (BMI) of 35.0 to 35.9 in adult, unspecified obesity type (HCC) Inject 15 mg subcutaneously one time a week. 6 mL 1 01/31/2024 07/29/2024 Active Completed/Discontinued Medications Medication Drug Class(es) Dates Sig (Normalized) Sig (Original) apremilast 30 mg oral tablet (20 sources) Start: 06-28-2017 End: 01-24-2020 take 1 tablet by mouth twice daily Apremilast (Otezla) 30 mg tablet Discontinued 30 MG PO TWICE A DAY June 27, 2017 11:00pm January 24, 2020 8:55am Start: 03-31-2017 End: 09-27-2022 take 1 tablet by mouth once Apremilast (Otezla) 30 mg tablet Active 30 MG PO ONCE January 24, 2020 8:54am Comment on above: Take 1 tablet by ceci once daily. Per derm Biotin (9 sources) BIOTIN ORAL Take by mouth as directed. 0 Active Comment on above: Take by mouth as dir ected. 12 hr buPROPion hydrochloride 150 mg extended release oral tablet (8 sources) Aminoketone Start: End: take 1 tablet by mouth twice daily Bupropion Hcl (Wellbutrin Sr) 150 mg tablet extended release 12 hr Discontinued 150 MG PO TWICE A DAY June 27, 2017 11:00pm January 24, 2020 8:55am ciprofloxacin 500 mg oral tablet (8 sources) Quinolone Antimicrobial Start: End: take 1 tablet by mouth twice daily Ciprofloxacin Hcl (Cipro) 500 mg tablet Discontinued 500 MG PO TWICE A DAY 6 3 June 28, 2017 11:00pm July 01, 2017 11:08pm doxycycline monohydrate 100 mg oral capsule (7 sources) Tetracycline-class Drug Start: End: take 100 mg by mouth twice daily Doxycycline Monohydrate Discontinued 100 MG PO TWICE A DAY 28 December 30, 2021 11:00pm January 13, 2022 11:13pm hydrocortisone acetate 25 mg rectal suppository (4 sources) Corticosteroid Start: End: hydrocortisone (HEMORRHOIDAL HC) 25 mg suppository Indications: Hemorrhoids, unspecified hemorrhoid type 1 Suppository by RECTAL route two times a day. 12 Suppository 0 04/18/2023 05/30/2023 Discontinued Comment on above: 1 Suppository by REC MARCIN route two times a day. 24 hr metFORMIN hydrochloride 500 mg extended release oral tablet (20 sources) Biguanide Start: End: take 2 tablets by mouth once daily at dinner metFORMIN ER (GLUCOPHAGE XR) 500 mg 24 hr tablet Take 2 tablets by mouth daily with dinner. 180 tablet 1 02/24/2024 05/26/2024 Discontinued Comment on above: Take 2 tablets by mo uth daily with dinner. naproxen 500 mg oral tablet (8 sources) Nonsteroidal Anti-inflammatory Drug Start: End: take 500 mg by mouth at mealtime Naproxen Discontinued 500 MG PO 2 to 3 times per day 60 January 24, 2020 12:00am January 26, 2021 10:30am administer with food or milk omega 9-szq-tmt-fish oil 250-500-1,000 mg cap (13 sources) Start: 019 take 250-500 capsules by mouth once daily omega 4-emq-gbh-fish oil 250-500-1,000 mg cap Take 1 capsule by mouth once daily. 0 03/24/2018 Active Comment on above: Take 1 capsule by mo [facility] once daily. ondansetron 4 mg oral tablet (20 sources) Serotonin-3 Receptor Antagonist Start: 024 End: 025 take 1 tablet by mouth every eight hours as needed for nausea ondansetron (ZOFRAN) 4 mg tablet Indications: Drug-induced nausea and vomiting Take 1 tablet by mouth every 8 hours as needed for nausea/vomiting for up to 30 doses. 30 tablet 1 10/20/2023 05/26/2024 Discontinued Start: 11-23-2020 End: 01-26-2021 take 4 mg by mouth every eight hours Ondansetron Discontinued 4 MG PO Q8H November 22, 2020 11:00pm January 26, 2021 10:30am OTC PRODUCT (20 sources) End: 09-05-2023 OTC PRODUCT once daily. Tume kelsey 09/05/2023 Discontinued End: 09-05-2023 OTC PRODUCT once daily. Tume kelsey 0 09/05/2023 Discontinued OTC PRODUCT once daily. Tumeric 0 Active Comment on above: once daily. Tumeric pantoprazole 40 mg delayed release oral tablet (20 sources) Proton Pump Inhibitor Start: End: 2 take 40 mg by mouth once daily Pantoprazole Discontinued 40 MG PO DAILY November 22, 2020 11:00pm November 26, 2021 10:03am Start: 06-28-2017 End: 01-24-2020 take 1 tablet by mouth once daily Pantoprazole (Protonix) 40 mg tablet,delayed release (DR/EC) Discontinued 40 MG PO daily June 27, 2017 11:00pm January 24, 2020 8:54am Comment on above: [facility] phenazopyridine hydrochloride 200 mg oral tablet (9 sources) Start: 2020 take 1 tablet by mouth every eight hours as needed phenazopyridine (PYRIDIUM, GERIDIUM) 200 mg tablet Take 1 tablet by mouth three times daily as needed. 20 tablet 2 11/21/2020 Active Comment on above: Take [address] tablet [address] [facility] three times daily as needed. phentermine hydrochloride 37.5 mg oral capsule (20 sources) Sympathomimetic Amine Anorectic Start: 2021 End: 2022 take 1 capsule by mouth once daily 30 minutes after breakfast Phentermine (Adipex-P) 37.5 mg capsule Discontinued 37.5 MG PO DAILY February 25, 2022 4:46pm May 10, 2022 9:55am must administer 30 minutes before or 1-2 hours after breakfast bmi 36 Start: 09-29-2017 End: 01-24-2020 take 1 tablet by mouth once daily Phentermine (Adipex-P) 37.5 mg tablet Discontinued 37.5 MG PO daily November 01, 2017 4:43pm January 24, 2020 8:54am tamsulosin hydrochloride 0.4 mg oral capsule (9 sources) alpha-Adrenergic Rishi Start: 11-23-2020 End: 09-01-2021 take 1 capsule by mouth once daily Tamsulosin (Flomax) 0.4 mg capsule Discontinued 0.4 MG PO DAILY November 22, 2020 11:00pm January 26, 2021 10:30am Comment on above: Take 1 capsule by [facility] daily at bedtime. tirzepatide, weight loss (ZEPBOUND) 10 mg/0.5 mL pen injector (20 sources) Start: 04-09-2024 End: 07-10-2024 tirzepatide, weight loss (ZEPBOUND) 10 mg/0.5 mL pen injector Indications: LITO (obstructive sleep apnea) , Class 2 severe obesity with serious comorbidity and body mass index (BMI) of 35.0 to 35.9 in adult, unspecified obesity type (HCC) Inject 10 mg subcutaneously one time a week. 2 mL 2 04/09/2024 07/10/2024 Discontinued Start: 04-09-2024 End: 07-08-2024 tirzepatide, weight loss (ZE PBOUND) 10 mg/0.5 mL pen injector Indications: LITO (obstructive sleep apnea) , Class 2 severe obesity with serious comorbidity and body mass index (BMI) of 35.0 to 35.9 in adult, unspecified obesity type (HCC) Inject 10 mg subcutaneously one time a week. 2 mL 2 04/09/2024 07/08/2024 Active Start: 11-04-2023 End: 01-03-2024 tirzepatide, weight loss (ZE PBOUND) 10 mg/0.5 mL pen injector Indications: Class 2 severe obesity with serious comorbidity and body mass index (BMI) of 35.0 to 35.9 in adult, unspecified obesity type (HCC) Inject 10 mg subcutaneously one time a week. 2 mL 11/04/2023 01/03/2024 Discontinued Start: 11-04-2023 tirzepatide, w eight loss (ZEPBOUND) 10 mg/0.5 mL pen injector Indications: Class 2 severe obesity with serious comorbidity and body mass index (BMI) of 35.0 to 35.9 in adult, unspecified obesity type (HCC) Inject 10 mg subcutaneously one time a week. 2 mL 11/04/2023 Active Start: 11-04-2023 End: 12-04-2023 tirzepatide, weight loss (ZE PBOUND) 10 mg/0.5 mL pen injector Indications: Class 2 severe obesity with serious comorbidity and body mass index (BMI) of 35.0 to 35.9 in adult, unspecified obesity type (HCC) Inject 10 mg subcutaneously one time a week. 2 mL 11/04/2023 12/04/2023 Active Start: 09-26-2023 End: 11-04-2023 tirzepatide, weight loss (ZE PBOUND) 10 mg/0.5 mL pen injector Indications: Class 2 severe obesity with serious comorbidity and body mass index (BMI) of 35.0 to 35.9 in adult, unspecified obesity type (HCC) Inject 10 mg subcutaneously one time a week. Patient should start on September 26, 2023. 2 mL 09/26/2023 11/04/2023 Discontinued Start: 09-26-2023 End: 10-26-2023 tirzepatide, weight loss (ZE PBOUND) 10 mg/0.5 mL pen injector Indications: Class 2 severe obesity with serious comorbidity and body mass index (BMI) of 35.0 to 35.9 in adult, unspecified obesity type (HCC) Inject 10 mg subcutaneously one time a week. Patient should start on September 26, 2023. 2 mL 0 09/26/2023 10/26/2023 Active tirzepatide, weight loss (ZEPBOUND) 2.5 mg/0.5 mL pen injector (10 sources) Start: 05-30-2023 End: 08-29-2023 tirzepatide, weight loss (ZEPBOUND) 2.5 mg/0.5 mL pen injector Indications: Class 2 severe obesity with serious comorbidity and body mass index (BMI) of 35.0 to 35.9 in adult, unspecified obesity type (HCC) Inject 2.5 mg subcutaneously one time a week. 2 mL 05/30/2023 08/29/2023 Discontinued Start: 05-30-2023 End: 08-29-2023 tirzepatide, weight loss (ZE PBOUND) 2.5 mg/0.5 mL pen injector Indications: Class 2 severe obesity with serious comorbidity and body mass index (BMI) of 35.0 to 35.9 in adult, unspecified obesity type (HCC) Inject 2.5 mg subcutaneously one time a week. 2 mL 0 05/30/2023 08/29/2023 Discontinued Start: 05-30-2023 tirzepatide, w eight loss (ZEPBOUND) 2.5 mg/0.5 mL pen injector Indications: Class 2 severe obesity with serious comorbidity and body mass index (BMI) of 35.0 to 35.9 in adult, unspecified obesity type (HCC) Inject 2.5 mg subcutaneously one time a week. 2 mL 0 05/30/2023 Active Start: 05-30-2023 End: 06-29-2023 tirzepatide, weight loss (ZE PBOUND) 2.5 mg/0.5 mL pen injector Indications: Class 2 severe obesity with serious comorbidity and body mass index (BMI) of 35.0 to 35.9 in adult, unspecified obesity type (HCC) Inject 2.5 mg subcutaneously one time a week. 2 mL 0 05/30/2023 06/29/2023 Active Comment on above: Inject 2.5 mg subcut aneously one time a week. tirzepatide, weight loss (ZEPBOUND) 5 mg/0.5 mL pen injector (10 sources) Start: 06-27-2023 End: 08-29-2023 tirzepatide, weight loss (ZEPBOUND) 5 mg/0.5 mL pen injector Indications: Class 2 severe obesity with serious comorbidity and body mass index (BMI) of 35.0 to 35.9 in adult, unspecified obesity type (HCC) Inject 5 mg subcutaneously one time a week. Patient should start on June 27, 2023. 2 mL 06/27/2023 08/29/2023 Discontinued Start: 06-27-2023 End: 08-29-2023 tirzepatide, weight loss (ZE PBOUND) 5 mg/0.5 mL pen injector Indications: Class 2 severe obesity with serious comorbidity and body mass index (BMI) of 35.0 to 35.9 in adult, unspecified obesity type (HCC) Inject 5 mg subcutaneously one time a week. Patient should start on June 27, 2023. 2 mL 0 06/27/2023 08/29/2023 Discontinued Start: 06-27-2023 tirzepatide, w eight loss (ZEPBOUND) 5 mg/0.5 mL pen injector Indications: Class 2 severe obesity with serious comorbidity and body mass index (BMI) of 35.0 to 35.9 in adult, unspecified obesity type (HCC) Inject 5 mg subcutaneously one time a week. Patient should start on June 27, 2023. 2 mL 0 06/27/2023 Active Start: 06-27-2023 End: 07-27-2023 tirzepatide, weight loss (ZE PBOUND) 5 mg/0.5 mL pen injector Indications: Class 2 severe obesity with serious comorbidity and body mass index (BMI) of 35.0 to 35.9 in adult, unspecified obesity type (HCC) Inject 5 mg subcutaneously one time a week. Patient should start on June 27, 2023. 2 mL 0 06/27/2023 07/27/2023 Active Comment on above: Inject 5 mg subcutan eously one time a week. Patient should start on June 27, 2023. tirzepatide, weight loss (ZEPBOUND) 7.5 mg/0.5 mL pen injector (11 sources) Start: 08-29-2023 End: 10-20-2023 tirzepatide, weight loss (ZEPBOUND) 7.5 mg/0.5 mL pen injector Indications: Class 2 severe obesity with serious comorbidity and body mass index (BMI) of 35.0 to 35.9 in adult, unspecified obesity type (HCC) Inject 7.5 mg subcutaneously one time a week. 2 mL 0 08/29/2023 10/20/2023 Discontinued Start: 08-29-2023 tirzepatide, w eight loss (ZEPBOUND) 7.5 mg/0.5 mL pen injector Indications: Class 2 severe obesity with serious comorbidity and body mass index (BMI) of 35.0 to 35.9 in adult, unspecified obesity type (HCC) Inject 7.5 mg subcutaneously one time a week. 2 mL 0 08/29/2023 Active Start: 08-29-2023 End: 09-28-2023 tirzepatide, weight loss (ZE PBOUND) 7.5 mg/0.5 mL pen injector Indications: Class 2 severe obesity with serious comorbidity and body mass index (BMI) of 35.0 to 35.9 in adult, unspecified obesity type (HCC) Inject 7.5 mg subcutaneously one time a week. 2 mL 0 08/29/2023 09/28/2023 Active Start: 08-03-2023 End: 08-29-2023 tirzepatide, weight loss (ZE PBOUND) 7.5 mg/0.5 mL pen injector Indications: Class 2 severe obesity with serious comorbidity and body mass index (BMI) of 35.0 to 35.9 in adult, unspecified obesity type (HCC) Inject 7.5 mg subcutaneously one time a week. Patient should start on August 03, 2023. 2 mL 0 08/03/2023 08/29/2023 Discontinued Start: 08-03-2023 End: 09-02-2023 tirzepatide, weight loss (ZE PBOUND) 7.5 mg/0.5 mL pen injector Indications: Class 2 severe obesity with serious comorbidity and body mass index (BMI) of 35.0 to 35.9 in adult, unspecified obesity type (HCC) Inject 7.5 mg subcutaneously one time a week. Patient should start on August 03, 2023. 2 mL 0 08/03/2023 09/02/2023 Active Problems Active Problems Problem Classification Problem Date Documented Da te Episodic/Chronic Abdominal pain (4 sources) Lower abdominal pain; Translations: [Lower abdominal pain, unspecified] Onset: 4 Episodic Anxiety disorders (20 sources) Anxiety; Translations: [Anxiety disorder, unspecified] Onset: 3 12-10-2015 Chronic Asthma (20 sources) Uncomplicated moderate persistent asthma; Translations: [Moderate persistent asthma, uncomplicated] Onset: 3 11-01-2022 Chronic Calculus of urinary tract (10 sources) Kidney stone; Translations: [Calculus of kidney] Onset: 4 12-01-2020 Episodic Diseases of white blood cells (1 source) Leukocytosis; Translations: [Elevated white blood cell count, unspecified] Chronic Disorders of lipid metabolism (20 sources) Mixed hyperlipidemia; Translations: [Mixed hyperlipidemia] Onset: 5 Chronic Esophageal disorders (20 sources) Gastroesophageal reflux disease without esophagitis; Translations: [Gastro-esophageal reflux disease without esophagitis] Onset: 6 02-04-2020 Chronic Fluid and electrolyte disorders (1 source) Hypokalemia; Translations: [Hypokalemia] Episodic Genitourinary symptoms and ill-defined conditions (1 source) Abnormal urine odor; Translations: [Unspecified abnormal findings in urine] Episodic Headache; including migraine (20 sources) Intractable chronic tension headache; Translations: [Chronic tension-type headache, intractable] Onset: 7 03-03-2021 Chronic Immunity disorders (10 sources) Immunosuppression; Translations: [Immunodeficiency, unspecified] 05-10-2022 Chronic Inflammatory diseases of female pelvic organs (7 sources) Chronic endometritis; Translations: [Chronic inflammatory disease of uterus] 05-10-2022 Chronic Intestinal infection (1 source) Traveler's diarrhea; Translations: [Infectious gastroenteritis and colitis, unspecified] 09-27-2022 Episodic Menopausal disorders (16 sources) Menopausal syndrome; Translations: [Menopausal and female climacteric states] Chronic Menstrual disorders (14 sources) Dysmenorrhea; Translations: [Dysmenorrhea, unspecified] 01-24-2020 Chronic Mood disorders (20 sources) Depressive disorder; Translations: [Depression] Onset: 3 12-10-2015 Chronic Mood disorders (1 source) Mood disorders; Translations: [Depression, unspecified depression type] Onset: 6 Nausea and vomiting (1 source) Drug-induced nausea and vomiting; Translations: [Nausea with vomiting, unspecified] 10-20-2023 Episodic Nutritional deficiencies (20 sources) Vitamin D deficiency; Translations: [Vitamin D deficiency, unspecified] Onset: 4 05-30-2023 Chronic Other aftercare (1 source) Encounter for follow-up examination after completed treatment for conditions other than malignant neoplasm; Translations: [Follow-up examination, following surgery, unspecified] Episodic Other endocrine disorders (6 sources) Hyperinsulinism; Translations: [Other hypoglycemia] 07-12-2023 Chronic Other endocrine disorders (1 source) Other hypoglycemia; Translations: [Hyperinsulinemia] Onset: Chronic Other female genital disorders (2 sources) Pain in female genitalia on intercourse; Translations: [Unspecified dyspareunia] Chronic Other female genital disorders (8 sources) Abnormal uterine bleeding; Translations: [Abnormal uterine and vaginal bleeding, unspecified] 01-24-2020 Chronic Other female genital disorders (8 sources) Endocervical polyp; Translations: [Polyp of cervix uteri] 12-31-2021 Episodic Other female genital disorders (2 sources) Polyp of cervix uteri; Translations: [Mucous polyp of cervix] Episodic Other female genital disorders (3 sources) Vaginal odor; Translations: [Other specified noninflammatory disorders of vagina] 07-12-2022 Episodic Other gastrointestinal disorders (1 source) Diarrhea; Translations: [Diarrhea, unspecified] 07-10-2024 Episodic Other inflammatory condition of skin (20 sources) Psoriasis; Translations: [Psoriasis, unspecified] Onset: 6 12-10-2015 Chronic Other inflammatory condition of skin (1 source) Pruritus ani; Translations: [Pruritus ani] 05-09-2024 Episodic Other injuries and conditions due to external causes (1 source) Motion sickness; Translations: [Motion sickness, initial encounter] 07-16-2024 Episodic Other injuries and conditions due to external causes (1 source) Motion sickness, initial encounter; Translations: [Motion sickness, initial encounter] Onset: 5 Episodic Other lower respiratory disease (2 sources) Dyspnea; Translations: [Shortness of breath] 06-14-2023 Episodic Other nervous system disorders (1 source) Disturbance of attention; Translations: [Attention and concentration deficit] Chronic Other nutritional; endocrine; and metabolic disorders (20 sources) Body mass index 30+ - obesity; Translations: [Obesity, unspecified] Onset: 4 02-04-2020 Chronic Other nutritional; endocrine; and metabolic disorders (7 sources) Obesity; Translations: [Other obesity] 05-10-2022 Chronic Other nutritional; endocrine; and metabolic disorders (10 sources) Other obesity; Translations: [Obesity, unspecified] 03-24-2022 Chronic Other nutritional; endocrine; and metabolic disorders (12 sources) Severe obesity; Translations: [Morbid (severe) obesity due to excess calories] 04-18-2023 Chronic Other nutritional; endocrine; and metabolic disorders (5 sources) Insulin resistance; Translations: [Insulin resistance] 08-29-2023 Chronic Other nutritional; endocrine; and metabolic disorders (1 source) Obesity, unspecified; Translations: [Obesity (BMI 35.0-39.9 without comorbidity)] Onset: 0 Chronic Other nutritional; endocrine; and metabolic disorders (1 source) Morbid (severe) obesity due to excess calories; Translations: [Class 2 severe obesity with serious comorbidity and body mass index (BMI) of 35.0 to 35.9 in adult, unspecified obesity type (HCC)] Onset: 4 Chronic Other nutritional; endocrine; and metabolic disorders (1 source) Body mass index (BMI) 35.0-35.9, adult; Translations: [Class 2 severe obesity with serious comorbidity and body mass index (BMI) of 35.0 to 35.9 in adult, unspecified obesity type (HCC)] Onset: 4 Chronic Other nutritional; endocrine; and metabolic disorders (3 sources) Weight gain; Translations: [Abnormal weight gain] 04-18-2023 Episodic Other skin disorders (1 source) Fistula; Translations: [Other specified disorders of the skin and subcutaneous tissue] 05-09-2024 Episodic Other upper respiratory disease (20 sources) Seasonal allergic rhinitis; Translations: [Other seasonal allergic rhinitis] 12-10-2015 Chronic Residual codes; unclassified (20 sources) Obstructive sleep apnea syndrome; Translations: [Obstructive sleep apnea (adult) (pediatric)] Onset: 5 02-04-2020 Chronic Residual codes; unclassified (1 source) Obstructive sleep apnea (adult) (pediatric); Translations: [LITO (obstructive sleep apnea)] Onset: 4 Chronic Residual codes; unclassified (1 source) Memory impairment; Translations: [Other amnesia] Episodic Residual codes; unclassified (20 sources) Family history of malignant neoplasm of gastrointestinal tract; Translations: [Family history of malignant neoplasm of digestive organs] 12-10-2015 Episodic Residual codes; unclassified (1 source) Peripheral edema; Translations: [Localized edema] 06-14-2023 Episodic Residual codes; unclassified (1 source) Other specified health status; Translations: [Other specified conditions influencing health status] 09-06-2023 Episodic Residual codes; unclassified (1 source) Family history of cancer of colon; Translations: [Family history of malignant neoplasm of digestive organs] 05-26-2024 Episodic Residual codes; unclassified (1 source) Decreased libido; Translations: [Decreased libido] Onset: 5 Episodic Unclassified (13 sources) Intermittent asthma; Translations: [Moderate intermittent asthma without complication] 03-09-2021 Unclassified (17 sources) Body mass index 40+ - severely obese; Translations: [Body mass index (BMI) greater than 40] 01-15-2022 Unclassified (1 source) Insulin resistance; Translations: [Insulin resistance] Onset: 4 Unclassified (1 source) Class 2 severe obesity with serious comorbidity and body mass index (BMI) of 35.0 to 35.9 in adult, unspecified obesity type (HCC); Translations: [Class 2 severe obesity with serious comorbidity and body mass index (BMI) of 35.0 to 35.9 in adult, unspecified obesity type (HCC)] Onset: 4 Past or Other Problems Problem Classification Problem Date Documented Date Episodic/Chronic Allergic reactions (20 sources) Spongiotic dermatitis; Translations: [Other specified dermatitis] Onset: 01-21-2020 01-21-2020 Episodic Anal and rectal conditions (5 sources) Anorectal fistula; 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] Onset: 05-21-2024 05-21-2024 Episodic Hemorrhoids (11 sources) Hemorrhoids; Translations: [Unspecified hemorrhoids] Onset: 01-25-2024 04-18-2023 Episodic Immunizations and screening for infectious disease (6 sources) Raised antinuclear antibody; Translations: [Other specified abnormal immunological findings in serum] Onset: 01-03-2024 Episodic Nonmalignant breast conditions (20 sources) Large breast; Translations: [Hypertrophy of breast] Onset: 03-17-2016 03-17-2016 Episodic Other aftercare (20 sources) Patient encounter status; Translations: [Other snf (current) drug therapy] Onset: 11-01-2022 11-01-2022 Episodic Other complications of (20 sources) Multigravida of advanced maternal age; Translations: [Supervision of elderly multigravida, unspecified trimester] Onset: 04-19-2007 Resolved: 04-19-2007 04-19-2007 Episodic Other complications of (20 sources) Elderly primigravida; Translations: [Supervision of elderly primigravida, unspecified trimester] Onset: 04-19-2007 Resolved: 11-21-2007 11-21-2007 Episodic Other disorders of stomach and duodenum (13 sources) Nonulcer dyspepsia; Translations: [Functional dyspepsia] Onset: 05-12-2017 05-12-2017 Episodic Other female genital disorders (3 sources) Other specified noninflammatory disorders of vagina; Translations: [Other specified symptoms associated with female genital organs] Onset: 03-15-2023 07-12-2022 Episodic Other screening for suspected conditions (not mental disorders or infectious disease) (20 sources) Mammography abnormal; Translations: [Other abnormal and inconclusive findings on diagnostic imaging of breast] Onset: 05-03-2015 12-10-2015 Episodic Residual codes; unclassified (1 source) Other specified postprocedural states; Translations: [Post-operative state] Onset: 07-05-2024 Episodic Residual codes; unclassified (1 source) Family history of malignant neoplasm of digestive organs; Translations: [Family history of colon cancer] Onset: 07-05-2024 Episodic Spondylosis; intervertebral disc disorders; other back problems (20 sources) Backache; Translations: [Dorsalgia, unspecified] Onset: 03-17-2016 03-17-2016 Episodic Results Test Name Value Interpretation Reference Range Facility [facility] 10-05-2024 Sex hormone binding globulin [Moles/Vol] 32 nmol/L Normal 17-125 [facility] Comment on above: Order Comment: Speci men Type: BLOOD SPECIMENOrdering Facility: External Submitter Address: , , Performed By: #### 1 [id number] ####[facility] LABCLIA [id number] [facility] [place] [id number] [place] TESTOSTERONE, FREE AND TOTAL , BY EQUILIBRIUM ULTRAFILTRATION MASS SPECTROMETRYon 10-05-2024 Testosterone [Mass/Vol] 10.6 ng/dL Normal [facility] Comment on above: Order Comment: Speci men Type: BLOOD SPECIMENOrdering Facility: External Submitter Address: , , Result Comment: Fema le: Premenopausal 10.0 - 55.0 Postmenopausal 7.0 - 40.0 Performed By: #### T FTEST ####[facility] LABCLIA [id number] [place] [address] Testosterone Free [Mass/Vol] 0.27 ng/dL Normal 0.10-0.85 [facility] Comment on above: Order Comment: Speci men Type: BLOOD SPECIMENOrdering Facility: External Submitter Address: , , Performed By: #### T FTEST ####[facility] LABCLIA [id number] [place] [address] Testosterone Free/Testosterone.t otal [Mass fraction] 2.50 % Normal 0.50-2.80 [facility] Comment on above: Order Comment: Speci men Type: BLOOD SPECIMENOrdering Facility: External Submitter Address: , , Performed By: #### T FTEST ####[facility] LABCLIA [id number] [place] [address] CNNURSEon 09-17-2024 CNNURSE Nurse Visit (FAMPWS) CHIKA GOOD ([id number]) 1970 F Date Time Provider Department 09/17/24 8:15 AM [facility] NURSE MELECIO During your visit today, we recorded the following information about you: JOHANNA RESENDIZ 09/17/2024 8:27 AM Signed Patient presents for Shingrix and Hepatitis B vaccines. Denies any problems at this time. Tolerated injections well. Johanna Resendiz LPN Allergies As of Date: 09/17/2024 (No Known Allergies) Date Reviewed: 07/16/2024 Reviewed by: Rafia Lundberg MA - Fully Assessed Reason for Visit: Imm/Inj [58] Primary Visit Diagnosis:Encounter for immunization [Z23] Prescriptions as of 09/17/2024 - scopolamine (TRANSDERM-SCOP) patch 1.5 mg/72 hr (delivers 1 mg over 3 days) Apply 1 patch as directed as directed. BEHIND THE EAR AT LEAST 4 HOURS PRIOR TO EXPOSURE AND EVERY 3 DAYS NEEDED. - tirzepatide, weight loss (ZEPBOUND) 15 mg/0.5 mL pen injector Inject 15 mg subcutaneously one time a week. - omeprazole (PRILOSEC) 40 mg capsule Take 1 capsule by mouth once daily. - Norethindrone, Contraceptive, 0.35 mg tablet Take 1 tablet by mouth once daily. - ADELINA 0.0375 mg/24 hr - estradiol (ESTRACE) 0.01 % (0.1 mg/gram) vaginal cream - atorvastatin (LIPITOR) 20 mg tablet Take 1 tablet by mouth daily at bedtime. For cholesterol. - fluticasone-salmeterol (ADVAIR DISKUS) 250-50 mcg/dose inhaler Inhale 1 Puff as instructed two times a day. Rinse and gargle mouth after use with water. - albuterol HFA (VENTOLIN HFA) 90 mcg/actuation inhaler Inhale 2 Puffs as instructed every 4 hours as needed. - CHOLECALCIFEROL, VITAMIN D3, ORAL Take by mouth as directed. Combined with omega 3 Meds Comments as of 12/01/2007: All medications reviewed today/October 10, 2007 [facility] All medications reviewed today/December 01, 2007 Sharon Poe Rn Problem List As Of Date 09/17/2024 Noted Resolved ADVANCED MATERNAL AGE:MULTIPARA[659.63] [O09.52*04/19/2007 04/19/2007 AMA PRIMIGRAVID-ANTEPARTUM [O09.519] 04/19/2007 11/21/2007 Family history of malignant neoplasm of gastroi* Moderate persistent asthma without complication* Allergic rhinitis, seasonal [J30.2] Anxiety [F41.9] 07/07/2012 Depression [F32.A] 07/07/2012 Obesity (BMI 35.0-39.9 without comorbidity) [E6*06/06/2013 Hyperlipidemia, mixed [E78.2] 11/01/2014 LITO (obstructive sleep apnea) [G47.33] 01/22/2015 Abnormal mammogram [R92.8] 05/03/2015 Psoriasis [L40.9] 12/10/2015 GERD without esophagitis [K21.9] 12/10/2015 Upper back pain [M54.9] 03/17/2016 Neck pain [M54.2] 03/17/2016 Chronic tension-type headache, intractable [G44*03/17/2016 Large breasts [N62] 03/17/2016 Encounter for screening for diabetes mellitus [*03/31/2017 Well adult exam [Z00.00] 01/21/2020 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] 01/21/2020 Encounter for routine gynecological examination*01/21/2020 Medication management [Z79.899] 11/01/2022 Vitamin D deficiency [E55.9] 08/29/2023 Encounter for screening mammogram for breast ca*01/03/2024 Encounter Status:Closed by JOHANNA RESENDIZ on 09/17/24 [facility] 08-03-2024 [facility] Nurse Visit (FAMPWS) CHIKA GOOD ([id number]) 1970 F Date Time Provider Department 08/03/24 3:45 PM [facility] NURSE FAMPWS During your visit today, we recorded the following information about you: JOHANNA RESENDIZ 08/03/2024 4:01 PM Signed Patient presents for MMR and Hepatitis B vaccines. Denies any problems at this time. Tolerated injections well. Johanna Resendiz LPN Allergies As of Date: 08/03/2024 (No Known Allergies) Date Reviewed: 07/16/2024 Reviewed by: Rafia Lundberg MA - Fully Assessed Reason for Visit: Imm/Inj [58] Primary Visit Diagnosis:Encounter for immunization [Z23] Prescriptions as of 08/03/2024 - scopolamine (TRANSDERM-SCOP) patch 1.5 mg/72 hr (delivers 1 mg over 3 days) Apply 1 patch as directed as directed. BEHIND THE EAR AT LEAST 4 HOURS PRIOR TO EXPOSURE AND EVERY 3 DAYS NEEDED. - tirzepatide, weight loss (ZEPBOUND) 15 mg/0.5 mL pen injector Inject 15 mg subcutaneously one time a week. - omeprazole (PRILOSEC) 40 mg capsule Take 1 capsule by mouth once daily. - Norethindrone, Contraceptive, 0.35 mg tablet Take 1 tablet by mouth once daily. - ADELINA 0.0375 mg/24 hr - estradiol (ESTRACE) 0.01 % (0.1 mg/gram) vaginal cream - atorvastatin (LIPITOR) 20 mg tablet Take 1 tablet by mouth daily at bedtime. For cholesterol. - fluticasone-salmeterol (ADVAIR DISKUS) 250-50 mcg/dose inhaler Inhale 1 Puff as instructed two times a day. Rinse and gargle mouth after use with water. - albuterol HFA (VENTOLIN HFA) 90 mcg/actuation inhaler Inhale 2 Puffs as instructed every 4 hours as needed. - CHOLECALCIFEROL, VITAMIN D3, ORAL Take by mouth as directed. Combined with omega 3 Meds Comments as of 12/01/2007: All medications reviewed today/October 10, 2007 [facility] All medications reviewed today/December 01, 2007 Sharon Poe Rn Problem List As Of Date 08/03/2024 Noted Resolved ADVANCED MATERNAL AGE:MULTIPARA[659.63] [O09.52*04/19/2007 04/19/2007 AMA PRIMIGRAVID-ANTEPARTUM [O09.519] 04/19/2007 11/21/2007 Family history of malignant neoplasm of gastroi* Moderate persistent asthma without complication* Allergic rhinitis, seasonal [J30.2] Anxiety [F41.9] 07/07/2012 Depression [F32.A] 07/07/2012 Obesity (BMI 35.0-39.9 without comorbidity) [E6*06/06/2013 Hyperlipidemia, mixed [E78.2] 11/01/2014 LITO (obstructive sleep apnea) [G47.33] 01/22/2015 Abnormal mammogram [R92.8] 05/03/2015 Psoriasis [L40.9] 12/10/2015 GERD without esophagitis [K21.9] 12/10/2015 Upper back pain [M54.9] 03/17/2016 Neck pain [M54.2] 03/17/2016 Chronic tension-type headache, intractable [G44*03/17/2016 Large breasts [N62] 03/17/2016 Encounter for screening for diabetes mellitus [*03/31/2017 Well adult exam [Z00.00] 01/21/2020 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] 01/21/2020 Encounter for routine gynecological examination*01/21/2020 Medication management [Z79.899] 11/01/2022 Vitamin D deficiency [E55.9] 08/29/2023 Encounter for screening mammogram for breast ca*01/03/2024 Encounter Status:Closed by JOHANNA RESENDIZ on 08/03/24 [facility] ([id number]) 1970 F Date Time Provider Department 07/19/24 [facility] During your visit today, we recorded the following information about you: JOHANNA RESENDIZ 07/19/2024 10:03 AM Signed Patient scheduled for nurse visit 08/03/24 to receive MMR and Hepatitis B vaccines. Please place order at this time. Johanna Resendiz LPN Allergies As of Date: 07/19/2024 (No Known Allergies) Date Reviewed: 07/16/2024 Reviewed by: Rafia Lundberg MA - Fully Assessed Reason for Visit: Orders [681] Primary Visit Diagnosis:Need for vaccination [Z23] Order(s):HEP B VACCINE, 3-DOSE, AGE 20+ YR (ENGERIX-B, RECOMBIVAX HB) [[id number]] Order #: [id number] HEP B VACCINE, 3-DOSE, AGE 20+ YR (ENGERIX-B, RECOMBIVAX HB) [[id number]] Order #: [id number] FUTURE HEP B VACCINE, 3-DOSE, AGE 20+ YR (ENGERIX-B, RECOMBIVAX HB) [[id number]] Order #: [id number] FUTURE MMR VACCINE (M-M-R II, PRIORIX) [[id number]] Order #: [id number] Prescriptions as of 07/19/2024 - scopolamine (TRANSDERM-SCOP) patch 1.5 mg/72 hr (delivers 1 mg over 3 days) Apply 1 patch as directed as directed. BEHIND THE EAR AT LEAST 4 HOURS PRIOR TO EXPOSURE AND EVERY 3 DAYS NEEDED. - tirzepatide, weight loss (ZEPBOUND) 15 mg/0.5 mL pen injector Inject 15 mg subcutaneously one time a week. - omeprazole (PRILOSEC) 40 mg capsule Take 1 capsule by mouth once daily. - Norethindrone, Contraceptive, 0.35 mg tablet Take 1 tablet by mouth once daily. - ADELINA 0.0375 mg/24 hr - estradiol (ESTRACE) 0.01 % (0.1 mg/gram) vaginal cream - atorvastatin (LIPITOR) 20 mg tablet Take 1 tablet by mouth daily at bedtime. For cholesterol. - fluticasone-salmeterol (ADVAIR DISKUS) 250-50 mcg/dose inhaler Inhale 1 Puff as instructed two times a day. Rinse and gargle mouth after use with water. - albuterol HFA (VENTOLIN HFA) 90 mcg/actuation inhaler Inhale 2 Puffs as instructed every 4 hours as needed. - CHOLECALCIFEROL, VITAMIN D3, ORAL Take by mouth as directed. Combined with omega 3 Meds Comments as of 12/01/2007: All medications reviewed today/October 10, 2007 [facility] All medications reviewed today/December 01, 2007 Sharon Poe Rn Problem List As Of Date 07/19/2024 Noted Resolved ADVANCED MATERNAL AGE:MULTIPARA[659.63] [O09.52*04/19/2007 04/19/2007 AMA PRIMIGRAVID-ANTEPARTUM [O09.519] 04/19/2007 11/21/2007 Family history of malignant neoplasm of gastroi* Moderate persistent asthma without complication* Allergic rhinitis, seasonal [J30.2] Anxiety [F41.9] 07/07/2012 Depression [F32.A] 07/07/2012 Obesity (BMI 35.0-39.9 without comorbidity) [E6*06/06/2013 Hyperlipidemia, mixed [E78.2] 11/01/2014 LITO (obstructive sleep apnea) [G47.33] 01/22/2015 Abnormal mammogram [R92.8] 05/03/2015 Psoriasis [L40.9] 12/10/2015 GERD without esophagitis [K21.9] 12/10/2015 Upper back pain [M54.9] 03/17/2016 Neck pain [M54.2] 03/17/2016 Chronic tension-type headache, intractable [G44*03/17/2016 Large breasts [N62] 03/17/2016 Encounter for screening for diabetes mellitus [*03/31/2017 Well adult exam [Z00.00] 01/21/2020 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] 01/21/2020 Encounter for routine gynecological examination*01/21/2020 Medication management [Z79.899] 11/01/2022 Vitamin D deficiency [E55.9] 08/29/2023 Encounter for screening mammogram for breast ca*01/03/2024 Encounter Status:Closed by CLARK JAVED on 07/19/24 [facility] Radhika 07-16-2024 CNOV Office Visit (FAMPWS ) CHIKA GOOD ([id number]) 1970 F Date Time Provider Department 07/16/24 8:20 AM LATRICE ETIENNE During your visit today, we recorded the following information about you: Pulse Blood pressure Weight 73/minute 96/64 77 kg Latrice Etienne APRN.[employer] 07/16/2024 9:02 AM Signed Chief Complaint Patient presents with: Follow Up HPI Chika Montesinos Baldemar is a 53 year old female who presents here today for Above Complaints. Patient presents to discuss immunizations. Patient is unsure whether she got all her immunizations and would like titers drawn. Past medical history, appointments, medications, allergies reviewed. Previous Medical History PAST MEDICAL HISTORY Diagnosis Date Abnormal glandular Papanicolaou smear of cervix Abn. Pap smear (cervix) Acute gastritis without mention of hemorrhage Allergic rhinitis, seasonal Anxiety 07/07/2012 Chronic tension-type headache, intractable 03/17/2016 Depression 07/07/2012 Encounter for routine gynecological examination 01/21/[address] 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 Vitamin D deficiency 08/29/2023 Well adult exam 01/21/2020 Last done 10/26/21 Previous Surgical History PAST SURGICAL HISTORY Procedure Laterality Date ADENOIDECTOMY PRIMARY Adenoidectomy BREAST REDUCTION 09/2016 BX BREAST W/DEVICE 1ST LESION ULTRASOUND GUID Left 05/03/2015 U/S Needle core upper mid left breast DELIVERY ONLY 11/2007 [facility] COLONOSCOPY FLX DX W/COLLJ SPEC WHEN PFRMD 2003 Colonoscopy COLONOSCOPY FLX DX W/COLLJ SPEC WHEN PFRMD 08/21/2008 Colonoscopy COLONOSCOPY FLX DX W/COLLJ SPEC WHEN PFRMD 01/14/2015 COLONOSCOPY FLX DX W/COLLJ SPEC WHEN PFRMD 02/04/2020 Colonoscopy- repeat 5 year CONIZATION CERVIX W/WO DANDC RPR ELTRD EXC 1993 LEEP-Cervix DANDC, DIAG AND/OR THERAPEUTIC 12/2021 EGD 1991 REMOVAL OF FOREIGN BODY EGD TRANSORAL BIOPSY SINGLE/MULTIPLE 06/12/2008 ESOPHAGOGASTRODUODENOSCOPY TRANSORAL DIAGNOSTIC 05/16/2017 EGD ESOPHAGOGASTRODUODENOSCOPY TRANSORAL DIAGNOSTIC 02/04/2020 EGD- repeat in 1 year ESOPHAGOSCOPY FLEX BALLOON DILAT <30 MM DIAM 06/12/2008 PAST SURGICAL HISTORY OF 02/21/2024 EUA, external hemorrhoidectomy SEPTOPLASTY 08/29/2017 Dr. Manny Sexton-nasal airway obstruction. deviated septum, inferior turbinate hypertrophy TONSILLECTOMY PRIMARY/SECONDARY Tonsillectomy Family History FAMILY HISTORY Problem Relation Age of Onset Asthma Mother Hypertension Father Colon Cancer Father Colon polyps Colon Cancer Maternal Grandfather Colon Cancer Paternal Grandfather Patient Allergies ALLERGIES No Known Allergies Current Medications Current Outpatient Medications on File Prior to Visit Medication Sig tirzepatide, weight loss (ZEPBOUND) 15 mg/0.5 mL pen injector Inject 15 mg subcutaneously one time a week. omeprazole (PRILOSEC) 40 mg capsule Take 1 capsule by mouth once daily. Norethindrone, Contraceptive, 0.35 mg tablet Take 1 tablet by mouth once daily. ADELINA 0.0375 mg/24 hr estradiol (ESTRACE) 0.01 % (0.1 mg/gram) vaginal cream atorvastatin (LIPITOR) 20 mg tablet Take 1 tablet by mouth daily at bedtime. For cholesterol. fluticasone-salmeterol (ADVAIR DISKUS) 250-50 mcg/dose inhaler Inhale 1 Puff as instructed two times a day. Rinse and gargle mouth after use with water. albuterol HFA (VENTOLIN HFA) 90 mcg/actuation inhaler Inhale 2 Puffs as instructed every 4 hours as needed. CHOLECALCIFEROL, VITAMIN D3, ORAL Take by mouth as directed. Combined with omega 3 No current facility-administered medications on file prior to visit. Social History Social History Tobacco Use Smoking status: Former Current packs/day: 0.00 Types: Cigarettes Start date: 07/13/1991 Quit date: 07/12/2006 Years since quittin.0 Smokeless tobacco: Never Tobacco comments: SOCIAL SMOKER IN PAST Vaping Use Vaping status: Never Used Substance Use Topics Alcohol use: Yes Comment: rare,NOT WHILE Drug use: No Review of Symptoms REVIEW OF SYSTEMS SEE HPI EXAM: BP 96/64 Pulse 73 Wt 77 kg (169 lb 12.1 oz) LMP 06/11/2024 (Approximate) BMI 30.07 kg/m? General Appearance: Well appearing, alert, in no acute distress, well-hydrated, well nourished. Health Maintenance List Shingrix Vaccine(1 of 2) Never done Covid-19 Vaccine() due on 11/13/2023 Mammogram Screening due on 01/15/2025 Annual PCP Team Chronic Disease Visit due on 07/16/2025 Cervical Cancer Screening due on 05/10/2027 Diabetes Screening due on (more content not included)... Normal [facility] HBV surface Ab Ql (S)on HBV surface Ab Qn (S) <8.00 Normal [facility] Comment on above: Order Comment: Speci men Type: BLOOD SPECIMENOrdering Facility: [facility] Address: [address] [place] [address] Result Comment: <8 m IU/mL: No serological evidence of immunity to Hepatitis B Virus. >/= 8 to <12 mIU/mL: No serological evidence of immunity to Hepatitis B Virus. >/= 12 mIU/mL: Consistent with serological evidence of immunity to Hepatitis B Virus. Performed By: #### 2 2322-2 ####[facility]CL[facility] [id number] [place] [address] [place] HBV surface Ab Ser Qlon HBV surface Ab Ql (S) Negative Normal [facility] Comment on above: Order Comment: Speci men Type: BLOOD SPECIMENOrdering Facility: [facility] Address: [address] [place] [address] Result Comment: No s erological evidence of immunity to Hepatitis B Virus. Performed By: #### 2 2322-2 ####[facility] [id number] [place] [address] [place] MUMPS IGG ABon 07-16-2024 MuV IgG Ql (S) Positive Normal Positive [facility] Comment on above: Order Comment: Speci men Type: BLOOD SPECIMENOrdering Facility: [facility] Address: [address] [place] [address] Result Comment: The result suggests recent or past exposure to Mumps virus or Mumps vaccination. The current test does not detect neutralizing antibodies. Positive result may also be seen due to presence of passively-transferred antibodies. Please correlate with patient's history. Performed By: #### R UBIGG, MUMPSG, 7962-4 ####[facility] [id number] [address], [place] [address] [place] MeV IgG Qn (S)on 07-16-2024 MEASLES IGG AB, QUAL Negative Abnormal Positive [facility] Comment on above: Order Comment: Cassi osorio Type: BLOOD SPECIMENOrdering Facility: [facility] Address: [address] [place] [address] Result Comment: The result suggests no history of Measles vaccination or exposure to Measles virus, however, the current test does not detect neutralizing antibodies and some individuals with past history of Measles vaccination may test negative using this test. Please correlate with past history of vaccination if applicable. Performed By: #### R UBIGG, MUMPSG, 7962-4 ####[facility] [id number] [address] RUBELLA IGG ANTIBODYon 07-16 RUBELLA IGG AB, QUAL Positive Normal Positive [facility] Comment on above: Order Comment: Cassi jo Type: BLOOD SPECIMENOrdering Facility: [facility] Address: [address] [place] [address] Result Comment: The result suggests recent or past exposure to Rubella virus or history of Rubella vaccination. Positive result may also be seen due to presence of passively-transferred antibodies. Please correlate with patient's history. Performed By: #### R UBIGG, MUMPSG, 7962-4 ####[facility] [id number] [address] [place] CNOVon 07-10-2024 CNOV Office Visit (OBGYWM ) CHIKA GOOD ([id number]) 1970 F Date Time Provider Department 07/10/24 2:00 PM KAILYN GILL During your visit today, we recorded the following information about you: Pulse Blood pressure Weight 81/minute 120/60 76.2 kg Kailyn Gill MD 07/10/2024 4:35 PM Signed Some documentation from previous visit of 04/09/24 was copied and pasted, documentation has been reviewed and edited as necessary for today's visit. Patient Summary: Chika is a 53 year old Female who presents for follow-up evaluation of obesity/weight management to treat and prevent related co-morbidities. In our previous visits we have discussed lifestyle intervention including a nutrition recommendations and physical activity optimization. Her last office visit was 3 months ago. Assessment/plan from last visit: -Change zepbound to 10mg dosing due to severe food aversion - ZEPBOUND and LITO indication reviewed - stop metformin- last insulin level was 8 - Labs reviewed with patient - continue vit D supplement - continue with Whole foods, Low carb, High protein -Continue prilosec for GERD -Continue Lipitor for Hypercholesteremia - Reviewed previous labs- CMP, LIPIDS and INSULIN ordered. -has follow up with PCP for routine care - discussed Journaling how she is feeling so she remembers and helps continue healthy habits. -Continue with routine exercise Interval History PT specifies the following items as new or significant updates since the last appointment: - Has lost 66 lbs since starting weight management program. - Currently on 15 mg of Mounjaro, previously on 10 mg but increased dosage due to availability issues at the pharmacy. - Initially experienced food aversions on 15 mg but reports no current issues. - Reports daily diarrhea, 1-2 times per day, a chronic issue for her. - Taking psyllium husk and aiming for 25 grams of fiber per day, usually achieving around 20 grams. - Drinking approximately 80 ounces of water daily. - Colonoscopy performed recently, no concerns about diarrhea from her reproductive healthcare assistant. - Reports significant improvement in overall well-being, stating, I feel great every day. - Engages in regular physical activity, walking 4 miles daily and strength training 3 days a week. - Not tracking food intake but follows a consistent dietary routine. - Breakfast: Two hard-boiled eggs and yogurt with harley seeds and 5 mg of creatine. - Lunch: Leftovers, often rotisserie chicken mixed with chickpeas, cucumber, quinoa, lemon juice, and olive oil. - Afternoon snack: Protein shake. - Dinner: Prepared by her partner, usually filet or Raine chicken with a small portion of rice and cabbage. - Incorporates vegetables into every meal. - Reports no cravings for sugar and consumes small portion sizes. - Hair loss has ceased, which she attributes to the stabilization of her weight. Weight loss since last vist: 7 lb Total weight lost: 66 lb - Last Wt 07/10/24 168 lb 04/05/24 175 lb 01/03/24 192 lb 10/20/23 198 lb 08/30/23 215 lb 07/12/23 224 lb STARTING WEIGHT 05/30/23 234 lb (106.1 kg) 5% weight loss = 218 lbs, 10% weight loss = 206 lbs GOAL weight: 150LBS Anti-obesity medications: Tirzepatide (Zepbound). Benefit:decreased food noise , decreased appetite, Adverse effects: none Anti-obesity medications: Metformin. -stopped Benefit:elevated insulin (86) Adverse effects: none Weight promoting medications: Inhaled corticosteroid Previous Diet (initial appointment): Wakes up: 5:30am- black coffee - drinks until lunch time Breakfast- 9am- Della cottage cheese pineapple and harley seeds, pea protein powder Lunch- seed 70cal nhi killer- Rotisserie chicken, garlic coffee Edamame, grapes (10) Dinner- Bonza chickpea pasta, chicken pasta, pepper, with veggies or schezwan chicken with white rice. Red cabbage with rice vinegar Snacks- sometimes chips, beef stick, cheese, Diet/Nutrition overview: Fluids: water (80-120oz) , black coffee 6cups Quality of diet: 24hr recall suggests in between diet. Characterization of diet:Structured. Sleeve Setter Safety Stitch of impaired eating habits:excessive hunger, emotion, and stress Eating Disorder no Preferred foods: Cravings: salty Nutrition Now: same B- 2 hard boiled eggs and yogurt with creatine and harley seeds L- Left overs- Rotissere chicken, chick peas, quinoa, lemon juice S- Shake ( owyn 32g) , nuts D- meat- Filet, chicken dish, small rice, cabbage and vegetable (broccoli), Dietary changes: Eating 3 meals a day, including breakfast Increasing water intake Controlling portions Identify hunger and satiety cues Increasing protein Reducing carbohydrates Current Barriers: inadequate sleep duration/QUALITY Exercise: walking 4 miles per day 6-7 days week- walking and steps, weigh (more content not included)... Normal [facility] CNOVon 07-05-2024 CNOV Office Visit (MARIAM ) CHIKA GOOD ([id number]) 1970 F Date Time Provider Department 07/05/24 1:00 PM ANAY BARCLAY During your visit today, we recorded the following information about you: Anay Barclay APRN.[facility] 07/08/2024 11:42 AM Addendum COLORECTAL SURGERY Post-Op Visit July 05, 2024 Chika Good returns for a post-operative visit after undergoing a colonoscopy and fistulotomy performed by Dr. Bolaños on June 21, 2024. Patient reports a significantly improved recovery experience compared to her previous hemorrhoidectomy performed on February 21, 2024. She attributes this to the numbing and nerve-blocking agents used during the recent procedure, which provided effective pain relief for the first few days post-operatively. As these agents wore off, she experienced minimal discomfort. She expresses high satisfaction with Dr. Bolaños's care, noting his excellent bedside manner and compassionate approach. Since the surgery, patient reports no pain and has not required any pain medications. She denies any drainage from the surgical site and notes only mild itching in the rectal area, which is less than before the procedure and is managed with barrier cream. She has resumed normal activities, including walking and lifting weights, and reports feeling great with good energy levels. She denies nausea, vomiting, fever, or chills. Patient takes a psyllium husk fiber supplement to bulk up her stool, as she tends to experience diarrhea after eating. She reports having 3-4 bowel movements per day, which she feels is too many. She describes a sensation of incomplete evacuation and occasional false alarms, which she attributes to spasming. She recalls an episode four days ago where she had a sudden urge to defecate in public and experienced a small accident despite clenching. Patient has a significant family history of colorectal cancer on both sides of her family. Her father was diagnosed with colon cancer at age 53 and had half of his colon removed; he is still alive. Her paternal uncle was diagnosed with colon cancer in his late 60s and at age 67. Her paternal grandfather also had colon cancer and in his 80s. On her mother's side, her maternal grandfather of colon cancer at age 65, and three of his siblings also of colon cancer. Patient has one daughter, aged 16, who has not had any GI issues. Past Diagnostic Results: - Colonoscopy (June 21, 2024): One 8mm transverse polyp removed by cold snare; pathology showed precancerous changes. Fistula unroofed and curetted using cautery. - Hemorrhoidectomy (February 21, 2024): Performed by Dr. Newsome. Current pain medications: None Current bowel related medications: Psyllium husk Bowel movement frequency: 1-3/day Current Outpatient Medications Medication Sig Dispense Refill tirzepatide, weight loss (ZEPBOUND) 10 mg/0.5 mL pen injector Inject 10 mg subcutaneously one time a week. 2 mL 2 omeprazole (PRILOSEC) 40 mg capsule Take 1 capsule by mouth once daily. 90 capsule 1 Norethindrone, Contraceptive, 0.35 mg tablet Take 1 tablet by mouth once daily. ADELINA 0.0375 mg/24 hr estradiol (ESTRACE) 0.01 % (0.1 mg/gram) vaginal cream atorvastatin (LIPITOR) 20 mg tablet Take 1 tablet by mouth daily at bedtime. For cholesterol. 90 tablet 1 fluticasone-salmeterol (ADVAIR DISKUS) 250-50 mcg/dose inhaler Inhale 1 Puff as instructed two times a day. Rinse and gargle mouth after use with water. 3 Each 1 albuterol HFA (VENTOLIN HFA) 90 mcg/actuation inhaler Inhale 2 Puffs as instructed every 4 hours as needed. 24 g 1 CHOLECALCIFEROL, VITAMIN D3, ORAL Take by mouth as directed. Combined with omega 3 No current facility-administered medications for this visit. ALLERGIES No Known Allergies LMP 06/11/2024 (Approximate) Sensitive Exam: yes, Participation of a fellow, resident, medical student, or advanced practice provider student in performing the sensitive examination was discussed with the patient or authorized contact center representative. The patient or authorized contact center representative has agreed to proceed with the sensitive examination. Physical Exam: General: Awake, alert, well-appearing, no acute distress Abdominal: Soft, non-tender Abdominal examination: soft, non-distended, and non-tender without masses or hernias. Wound is well healed. Anorectal: Perianal skin is intact. No erythema, induration or excoriation. No fissure or external hemorrhoids. Hemorrhoidectomy scar visible anteriorly. Financial Systems Analyst present: Yes Patient Entered Questionnaires PROMIS Global Health Physical Health Summary Physical health: Everyday physical activity, ability: Fatigue: Pain level: General health: Social activities/roles, ability: Physical Health T-Score Physical Health Percentile No data (more content not included)... Normal [facility] ANES POSTPROC EVALon 025 ANES POSTPROC EVAL HNO ID: [id number] Author: Celeste HERNÁNDEZ MD Service: ? Author Type: Anesthesiologist Type: Anesthesia Postprocedure Evaluation Filed: 06/21/2024 12:08 Note Text: POST ANESTHESIA EVALUATION NOTE : 1970 Procedure Summary Date: 06/21/24 Room / Location: [address] [facility] Anesthesia Start: 913 Anesthesia Stop: 1046 Procedures: EXAM UNDER ANESTHESIA RECTAL (Anus) FISTULOTOMY ANAL SUBCUTANEOUS (Anus) PLACEMENT OF SETON (Anus) COLONOSCOPY WITH BIOPSY (Abdomen) Diagnosis: Anorectal fistula (Anorectal fistula [K60.50]) Surgeons: Hannah Bolaños MD Responsible Provider: Celeste Hernández MD Anesthesia Type: general ASA Status: 3 Anesthesia Type: general Airway Type: LMA Last Vitals Vitals Value Taken Time BP 113/65 06/21/24 1115 Temp 36.1 ?C (97 ?F) 06/21/24 1047 Pulse 68 06/21/24 1122 Resp 16 06/21/24 1047 SpO2 97 % 06/21/24 1122 Vitals shown include unfiled device data. Post Anesthesia Patient Status Patient Evaluation: bedside. Neurological Status: aware and responsive. Pulmonary Status: breathing comfortably on supplemental oxygen Airway Control: returned to baseline unsupported. Cardiovascular Status: stable. Pain Management: clinically adequate Postoperative Hydration: acceptable. Intraoperative Events: no significant anesthesia events Post Operative Nausea/Vomiting Status: no significant post operative nausea or vomiting Recommendation: continue current plan of care. Anesthesia Observations No Documentation SIGNATURE: Celeste Hernández MD PATIENT NAME: Chika Good DATE: June 21, 2024 TIME: 12:07 PM CSN: [id number] Normal [facility] ANES PRE-OPon 06-21-2024 ANES PRE-OP HNO ID: [id number] Author: Celeste HERNÁNDEZ MD Service: ? Author Type: Anesthesiologist Type: Anesthesia Preprocedure Evaluation Filed: 06/21/2024 09:22 Note Text: ANESTHESIOLOGY DAY OF SURGERY NOTE : 1970 Procedure Information Anesthesia Start Date/Time: 06/21/24 0914 Procedures: EXAM UNDER ANESTHESIA RECTAL (Anus) FISTULOTOMY ANAL SUBCUTANEOUS (Anus) PLACEMENT OF SETON (Anus) COLONOSCOPY WITH BIOPSY (Abdomen) Location: MAIN OR / [facility] Surgeons: Hannah Bolaños MD Estimated body mass index is 30.11 kg/m? as calculated from the following: Height as of 06/12/24: 160 cm (5' 3). Weight as of 06/12/24: 77.1 kg (170 lb). Most recent hematocrit and potassium results: HCT 42.6 05/21/2024 K 4.5 05/21/2024 Relevant Problems ANESTHESIA (+) LITO (obstructive sleep apnea) GI (+) GERD without esophagitis NEURO-PSYCH (+) Chronic tension-type headache, intractable PULMONARY (+) Moderate persistent asthma without complication (HCC) (+) LITO (obstructive sleep apnea) I - PHYSICAL EVALUATION AIRWAY Patient intubated: No. Tracheostomy tube not present Mallampati: III. TM distance: >3 FB. Neck ROM: full ROM without neurological symptoms. Mouth opening: adequate. Short neck: no. Thick neck: no II - ANESTHESIA PLAN ASA Score: 3 Anesthetic Plan: general Airway type: LMA NPO Status: adequate Beta Rishi Monitoring Plan Monitoring plan: standard ASA. Post Procedure Analgesic Plan Postoperative analgesic plan: multimodal analgesia. Informed Consent Anesthetic risks, benefits, alternatives, personnel and consent discussed: yes. Patient / Responsible Constitution Party agrees to proceed: yes Patient / Surrogate agrees to blood products: Yes Significant changes in the patient condition since the History and Physical, not otherwise documented in primary service progress note: no. Potential Anesthesia issues that may suggest increased risk of complications or contraindication to planned procedure: none. Vitals Value Taken Time BP 105/69 06/21/24725 Pulse 81 06/21/24725 Resp 18 06/21/24725 Temp 36.6 ?C (97.9 ?F) 06/21/24725 SpO2 96 % 06/21/24725 Facility-Administered Medications as of 06/21/2024 Medication Dose Route Frequency water for irrigation irrigation X (OR/PROCEDURE) PRN Outpatient Medications as of 06/21/2024 Medication Sig omeprazole (PRILOSEC) 40 mg capsule Take 1 capsule by mouth once daily. Norethindrone, Contraceptive, 0.35 mg tablet Take 1 tablet by mouth once daily. atorvastatin (LIPITOR) 20 mg tablet Take 1 tablet by mouth daily at bedtime. For cholesterol. tirzepatide, weight loss (ZEPBOUND) 10 mg/0.5 mL pen injector Inject 10 mg subcutaneously one time a week. ADELINA 0.0375 mg/24 hr estradiol (ESTRACE) 0.01 % (0.1 mg/gram) vaginal cream fluticasone-salmeterol (ADVAIR DISKUS) 250-50 mcg/dose inhaler Inhale 1 Puff as instructed two times a day. Rinse and gargle mouth after use with water. albuterol HFA (VENTOLIN HFA) 90 mcg/actuation inhaler Inhale 2 Puffs as instructed every 4 hours as needed. CHOLECALCIFEROL, VITAMIN D3, ORAL Take by mouth as directed. Combined with omega 3 I have interviewed and examined the patient. I have reviewed the medical record and/or the pre-anesthesia evaluation, pertinent labs, and test results. This contains updated information obtained within 48 hours of Surgery/Procedure. SIGNATURE: Celeste Hernández MD PATIENT NAME: Chika Good DATE: June 21, 2024 TIME: 9:22 AM CSN: [id number] Normal [facility] BRIEF OP NOTon 06-21-2024 BRIEF OP NOT HNO ID: [id number] Author: LESLI CROWDER MD Service: Colorectal Author Type: Resident Type: Brief Op Note Filed: 06/21/2024 10:39 Note Text: BRIEF OPERATIVE NOTE - COLORECTAL SURGERY Log ID: [id number] Surgery/Procedure Date: 06/21/2024 Incision/Procedure Start Time: 9:30 AM Incision Close/Procedure End Time: 10:33 AM Surgeon(s) and Filing And Polishing Supervisor(s): Surgeons and Role: * Hannah Bolaños MD - Primary * Lesli Crowder MD - Resident - Assisting * Naren Davis MD No Additional Staff Procedures and Anesthesia: Procedure(s) and Anesthesia Type: * EXAM UNDER ANESTHESIA RECTAL - Choice - Anesthesia Consult * FISTULOTOMY ANAL SUBCUTANEOUS - Choice - Anesthesia Consult * PLACEMENT OF SETON - Choice - Anesthesia Consult * COLONOSCOPY WITH BIOPSY - Choice - Anesthesia Consult Stoma Type: N/A Findings: Normal appearing terminal ileum, normal appearing colonic mucosa, one polyp. Anterior superficial anorectal fistula, superficial fistulotomy Estimated Blood Loss: Minimal Specimens: Cold cut biopsy terminal ileum, polypectomy colonic polyp Diagnosis Code(s): Pre-Op Diagnosis Codes: * Anorectal fistula [K60.50] Postop Diagnosis: Same as preoperative Drains: None Complications: None Patient was accompanied to the next level of care by a licensed practitioner from the surgical team pending completion of this brief op note (or operative note) SIGNATURE: Lesli Crowder MD PATIENT NAME: Chika Good DATE: June 21, 2024 TIME: 10:34 AM [facility] Colonoscopyon 06-21-2024 Colonoscopy OR Gastrointestinal Endoscopy Patient Name: Chika Good Procedure Date: 06/21/2024 8:44 AM Date of : 1970 Admit Type: Outpatient Age: 53 Gender: Female 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 Refer to note in patient chart for documentation of history and physical. Last Colonoscopy: 5 years ago. Referring Physician: Medicines: Monitored Anesthesia Care Complications: No immediate complications. Requesting Provider: Procedure: Pre-Anesthesia Assessment: - Prior to the procedure, a History and Physical was performed, and patient medications and allergies were reviewed. The patient's tolerance of previous anesthesia was also reviewed. The risks and benefits of the procedure and the sedation options and risks were discussed with the patient. All questions were answered, and informed consent was obtained. Prior Anticoagulants: The patient has taken no anticoagulant or antiplatelet agents. ASA Grade Assessment: II - A patient with mild systemic disease. After reviewing the risks and benefits, the patient was deemed in satisfactory condition to undergo the procedure. After I obtained informed consent, the scope was passed under direct vision. Throughout the procedure, the patient's blood pressure, pulse, and oxygen saturations were monitored continuously. The Colonoscope was introduced through the anus and advanced to the cecum, identified by appendiceal orifice and ileocecal valve. The colonoscopy was performed without difficulty. The patient tolerated the procedure well. The quality of the bowel preparation was good. The terminal ileum, ileocecal valve, appendiceal orifice, and rectum were photographed. Moderate Sedation: The administration of moderate sedation was initiated at 09:30. An independent trained observer was present and continuously monitored the patient. Findings: The perianal and digital rectal examinations were normal. An 8 mm polyp was found in the distal transverse colon. The polyp was sessile. The polyp was removed with a cold snare. Resection and retrieval were complete. Verification of patient identification for the specimen was done. Estimated blood loss was minimal. Verification of patient identification for the specimen was done. The terminal ileum appeared normal. This was biopsied with a cold forceps for histology. Verification of patient identification for the specimen was done. Estimated blood loss was minimal. Impression: - One 8 mm polyp in the distal transverse colon, removed with a cold snare. Resected and retrieved. - The examined portion of the ileum was normal. Biopsied. Recommendation: - Discharge patient to home. - Resume previous diet. - Await pathology results. - Repeat colonoscopy in 5 years for surveillance. - Patient has a contact number available for emergencies. The signs and symptoms of potential delayed complications were discussed with the patient. Return to normal activities tomorrow. Written discharge instructions were provided to the patient. - Continue present medications. Attending Participation: I personally performed the entire procedure without the assistance of a fellow, resident or surgical scheduler. MD Hannah Acosta MD 06/21/2024 10:22:16 AM This report has been signed electronically by Hannah Bolaños MD Number of Addenda: 0 Note Initiated On: 06/21/2024 8:44 AM Estimated Blood Loss: Estimated blood loss: none. Procedure Start: Procedure End: Normal [facility] HISTORY PHYSICALon HISTORY PHYSICAL HNO ID: [id number] Author: LESLI CROWDER MD Service: Colorectal Author Type: Resident Type: H&P Filed: 06/21/2024 08:32 Note Text: Attestation signed by Hannah Bolaños MD at 06/21/2024 9:50 PM Hannah Bolaños MD UPDATED HISTORY AND PHYSICAL EXAMINATION SERVICE DATE: 06/21/2024 SERVICE TIME: 8:25 AM PHYSICAL EXAM MUST BE COMPLETED ON ADMISSION The History and Physical (completed in the past 30 days) has been reviewed and the patient has been examined. The contents accurately reflect the patient's condition with the following additions or revisions since the HANDP was completed. Examination indicates: General Appearance: Well appearing, alert, in no acute distress, well-hydrated, well nourished. Lungs: Lungs clear to auscultation. No wheezing, rhonchi, rales. Unlabored on room air Heart: Normal S1 and S2 auscultated, no murmurs or added heart sounds. This HANDP can be found in the Electronic Medical Record dated 05/21/[address] Bolaños. SIGNATURE: Lesli Crowder MD PATIENT NAME: Chika Good DATE: June 21, 2024 TIME: 8:25 AM PAGER: [phone] [facility] OPERATIVE NOon 06-21-2024 OPERATIVE NO HNO ID: [id number] Author: HANNAH BOLAÑOS MD Service: Colorectal Author Type: Physician Type: Operative Report Filed: 07/04/2024 20:44 Note Text: [facility] - Operative Report [address] [place] [address] [place] CHIKA GOOD : 1970 AGE: 53. SEX: F PATIENT TYPE: A HOSP SVC: CRS LOCATION: [place] [address] ATTENDING PHYSICIAN: Hannah Bolaños M.D. CSN NUMBER: [id number] DATE OF SURGERY/PROCEDURE: 06/21/2024 INCISION/PROCEDURE START TIME: 09:30 a.m. INCISION CLOSE/PROCEDURE END TIME: 10:33 a.m. PREOPERATIVE DIAGNOSIS: Anal fistula. POSTOPERATIVE DIAGNOSIS: Anal fistula. SURGEON: Hannah Bolaños M.D. GASOLINE SERVICE ATTENDANT: Dr. Naren Davis. SURGERY/PROCEDURE: Examination under anesthesia, colonoscopy with snare polypectomy and superficial anal fistulotomy. ANESTHESIA: General. INDICATIONS: This is a 53-year-old female with a history of a hemorrhoidectomy that was performed in February of 2024. 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 On examination in clinic, this appeared to be a superficial fistula and I discussed with the patient performing exam under anesthesia with fistulotomy versus seton placement. She was also due for colonoscopy and we discussed performing a colonoscopy at the same time. We discussed risks, benefits, and alternatives in detail including risks of bleeding, infection, and sphincter injury. She understood all this well and desired to proceed. OPERATIVE FINDINGS: On colonoscopy, the quality of the preparation was good. An 8 mm polyp was found in the distal transverse colon and this was a sessile polyp and this polyp was removed with a cold snare. The mucosa of the terminal ileum and colon appeared normal with no evidence of any inflammatory bowel disease. On anorectal examination under anesthesia, there was external opening just a few mm from the anal verge that was easily communicating with an internal opening somewhat distal to the dentate line. This appeared to be a superficial fistula and was not involving any muscle. A simple fistulotomy was performed. DESCRIPTION OF PROCEDURE: The patient was brought to the operating room and a surgical huddle was held. Preoperative antibiotics were not indicated. General anesthesia was induced by Anesthesia team and the patient was placed in the lithotomy position. Digital rectal examination was performed and the pediatric colonoscope was advanced to the terminal ileum and then fully withdrawn. The mucosa was carefully inspected. In the transverse colon, an 8 mm polyp was seen and was removed with a cold snare. The polyp was suctioned up and sent as specimen. The remaining colon and rectum were normal including on retroflexion where scar near the anus was identified from previous hemorrhoidectomy. The scope was then withdrawn and the patient was placed in the lithotomy position and the perineum was prepped and draped. We easily identified an anterior punctate opening just outside the anal verge and we were able to easily cannulate this fistula with a probe and then on assessing the fistula, there appeared to be no muscle involved. The electrocautery was used to unroof the fistula and the base of the epithelialized tract was curetted. We then used Exparel for local anesthesia. Hemostasis was assured. Dressing was placed. The patient was then woken up from anesthesia and taken to the recovery room in stable condition. Hannah Paris, performed the entire procedure with the assistance of Dr. Naren Davis with no qualified resident available to assist. WOUND CLASSIFICATION: Class 3. EBL: Minimal. DRAINS: None. COMPLICATIONS: None. SPECIMENS: Terminal ileal biopsy and transverse colon polyp. Hannah Bolaños M.D. CHRISTY:[id number] /[id number] Normal [facility] Pathology biopsy report Ozzy (Tiss)on 06-21-2024 AP DISCLAIMER Normal [facility] Comment on above: Order Comment: Speci men Type: TISSUE SPECIMENOrdering Facility: [facility] Address: [address] [place] [address] Result Comment: Elena combs Developed Test (LDT) Disclaimer: Performance characteristics of immunohistochemical, immunofluorescent, and chromogenic in-situ hybridization tests have been determined by the performing laboratory within [facility] Pathology and Laboratory Medicine Department ([facility], [facility], [facility], [facility], [facility], [facility], or [facility]) in a manner consistent with CLIA requirements. One or more of these tests may not have been cleared or approved by the FDA. [facility] is regulated under CLIA as qualified to perform high-complexity testing. These tests are used for clinical purposes. These should not be regarded as investigational or for research. Positive and negative controls stain appropriately. Performed By: #### 6 6121-5 ####[facility] [id number] [place] [address] [place] CASE REPORT Normal [facility] Comment on above: Order Comment: Speci men Type: TISSUE SPECIMENOrdering Facility: [facility] Address: [address] [place] [address] Result Comment: Surg [facility] Pathology Report Case: [id number] Authorizing Provider: Hannah Bolaños MD Collected: 06/21/2024 09:45 AM Ordering Location: Admitting Received: 06/21/2024 02:05 PM Pathologist: Peggy Boyd MD Specimens: A) - Small Bowel, Terminal Ileum, Biopsy, terminal ilieum B) - Colon, Transverse, Polyp, distal transverse colon polyp Performed By: #### 6 6121-5 ####[facility] [id number] [place] [address] [place] CLINICAL HISTORY [facility] Comment on above: Order Comment: Speci men Type: TISSUE SPECIMENOrdering Facility: [facility] Address: [address] [place] [address] Result Comment: Pre- op diagnosis: Anorectal fistula [K60.50] Performed By: #### 6 6121-5 ####[facility] [id number] [address] STATES OF [facility] FINAL DIAGNOSIS Normal [facility] Comment on above: Order Comment: Speci men Type: TISSUE SPECIMENOrdering Facility: [facility] Address: [address] [place] [address] Result Comment: A. T erminal ileum, biopsy: - Small intestinal mucosa with no significant pathologic change. B. Colon, distal transverse polyp, biopsy: - Fragments of tubular adenoma. at 1118 EDT Performed By: #### 6 6121-5 ####[facility] [id number] [address] [place] FINAL PERFORMING LAB Normal [facility] Comment on above: Order Comment: Speci men Type: TISSUE SPECIMENOrdering Facility: [facility] Address: [address] [place] [address] Result Comment: Diag nostic interpretation performed at: [facility], [address] [place] [address] CLIA# [id number] Rn Perioperative: Steven Thapa MD Performed By: #### 6 6121-5 ####[facility] [id number] [address] [place] GROSS DESCRIPTION Normal [facility] Comment on above: Order Comment: Speci men Type: TISSUE SPECIMENOrdering Facility: [facility] Address: [address] [place] [address] Result Comment: A. S mall Bowel, Terminal Ileum, Biopsy Received in formalin are multiple pieces of varma, soft tissue aggregating to 0.9 x 0.2 x 0.1 cm. Totally submitted in one cassette. B. Colon, Transverse, Polyp Received in formalin is a varma-red polypoid segment of tissue measuring 0.5 x 0.4 x 0.4 cm. No stalk is present. The line of resection is noted. The specimen is bisected. Also received in the same container are two segments of varma, soft tissue aggregating to 1.1 x 0.3 x 0.2 cm. Totally submitted in one cassette. [facility] June 21, 2024 2:45 PM Gross examination performed at [facility], [facility] [place] [place] [address] Performed By: #### 6 6121-5 ####[facility]CLIA [id number] [facility] [address] CNOVon 06-12-2024 CNOV Office Visit (MARIAM ) CHIKA GOOD ([id number]) 1970 F Date Time Provider Department 06/12/24 10:00 AM ANAY BARCLAY During your visit today, we recorded the following information about you: Weight Height Last Period 77.1 kg 1.6 m 06/12/24 Anay Barclay APRN.[employer]PA[employer]ER [employer] 06/12/2024 12:04 PM Signed COLORECTAL SURGERY Follow-up June 08, 2024 Chief complaint:pre procedure visit for fistulotomy and colonoscopy HPI: Chika Good is a 53-year-old female presenting for a pre procedure visit for possible fistulotomy and colonoscopy by Dr. Bolaños. She has a history of an external hemorrhoidectomy performed by Dr. Newsome on February 21, 2024, followed by significant postoperative pain. Patient reported ongoing discomfort and small amounts of pus from an external sinus area. She was evaluated again by Dr. Pepe on May 11, at which time an exam under anesthesia and fistulotomy were recommended. On 05/21/[address] Bolaños for a second opinion. At that time she was complaining of recurrent anal itching and rectal pain with some leakage and apparent sinus vs/fistula adjacent to hemorrhoidectomy scar. It was recommended to proceed with a EUA with fistulotomy versus seton placement depending on the degree of muscle involvement and perform a colonoscopy at the same time. Today, she notes that her drainage has ceased, and she is currently pain-free, leading her to question whether the fistula could heal spontaneously and if the scheduled surgery could be canceled. Patient reports that her symptoms began approximately two years ago, initially presenting as itching and a small lump on the rectum. She monitored the lump for several months, during which it increased in size. Her primary care physician prescribed a steroid suppository, which alleviated the itching but did not reduce the size of the lump. She was subsequently referred to Dr. Newsome, who diagnosed her with a hemorrhoid and performed banding. Banding was unsuccessful and on 02/20/2025 she had a hemorrhoidectomy. Patient denies experiencing shortness of breath, chest pain, or abdominal pain. She is currently taking an albuterol inhaler, Lipitor, vitamin D, Advair Diskus, Prilosec, and terzepatide. She also uses a progesterone patch and pill, as well as a vaginal estradiol cream. She has no known allergies. Physical Exam: Sensitive Exam: yes, Participation of a fellow, resident, medical student, or advanced practice provider student in performing the sensitive examination was discussed with the patient or authorized contact center representative. The patient or authorized contact center representative has agreed to proceed with the sensitive examination. LMP 04/28/2024 (Exact Date) General - awake, alert, no acute distress Abdominal - soft non-tender Anorectal: Perianal skin is intact. Small external sinus opening is noted, superficial fistula tract is present. No erythema, swelling, tenderness, induration, or excoriation. No external hemorrhoids. Digital Rectal Exam: deferred Financial Systems Analyst present: Yes, Lady PUENTE and Dr. Bolaños Medical Decision Making: Assessment/Plan 1. Pre-op exam (Z01.818) Anorectal fistula (K60.50) Anal fistula (K60.30) Patient presents for pre-operative evaluation. Examination reveals a superficial anal fistula with a small opening, no signs of infection or inflammation. Fistula tract is still present and extends deeper than initially visible, but does not appear to involve any muscle tissue. - Proceed with EUA and fistulotomy scheduled for 06/21. - Discussed procedure details, including potential for abscess formation if left untreated. - Will perform fistulotomy to divide the fistula tract, expected to heal quickly post-procedure. - Patient's will accompany her on the day of the procedure; will provide post-operative instructions to him. 2. Encounter for screening colonoscopy (Z12.11) Patient is due for a screening colonoscopy. - Perform colonoscopy concurrently with EUA and fistulotomy on 06/21. - Patient to use Clenpiq; will send instructions via [employer]. - Will inquire about a coupon for Clenpiq and notify patient if available. Follow-up: - Your procedure is scheduled for , June 21. Please ensure your accompanies you, as you will not be able to drive or remember details after the procedure. - Dr. Bolaños will speak with your after the procedure to review the results and next steps. -Your CLENPIQ prep was called into your pharmacy. I attached a coupon to your AVS. - If you have any questions or concerns before the procedure, please reach out through [employer]. Thank you for coming in today. I look forward to seeing you on the . Data Reviewed: Tests AND Documents Reviewed/ordered: Review of prior notes from 05/21/2024 I have discussed Chika (more content not included)... Normal [facility] CBC W Auto Differential pane l (Bld)on 05-21-2024 Basophils (Bld) [#/Vol] 0.07 10*3/uL [facility] Basophils/100 WBC (Bld) 0.7 % [facility] Differential cell count method Nom (Bld) Auto [facility] Eosinophils (Bld) [#/Vol] 0.14 10*3/uL [facility] Eosinophils/100 WBC (Bld) 1.4 % [facility] Erythrocyte distribution width (RBC) [Ratio] 13.2 % 11.5 - 15.0 % [facility] Hematocrit (Bld) [Volume fraction] 42.6 % 36.0 - 46.0 % [facility] Hemoglobin (Bld) [Mass/Vol] 14 g/dL 11.5 - 15.5 g/dL [facility] Immature granulocytes (Bld) [#/Vol] 0.03 10*3/uL [facility] Immature granulocytes/100 WBC (Bld) 0.3 % [facility] Lymphocytes (Bld) [#/Vol] 2.37 10*3/uL [facility] Lymphocytes/100 WBC (Bld) 23.6 % [facility] MCH (RBC) [Entitic mass] 30.4 pg 26.0 - 34.0 pg [facility] MCHC (RBC) [Mass/Vol] 32.9 g/dL 30.5 - 36.0 g/dL [facility] MCV (RBC) [Entitic vol] 92.6 fL 80.0 - 100.0 fL [facility] Monocytes (Bld) [#/Vol] 0.72 10*3/uL [facility] Monocytes/100 WBC (Bld) 7.2 % [facility] Neutrophils (Bld) [#/Vol] 6.72 10*3/uL [facility] Neutrophils/100 WBC (Bld) 66.8 % [facility] Nucleated RBC (Bld) [#/Vol] NINF [facility] Nucleated RBC/100 WBC (Bld) [Ratio] 0 % /100 WBC [facility] Platelet mean volume (Bld) [Entitic vol] 10.2 fL 9.0 - 12.7 fL [facility] Platelets (Bld) [#/Vol] 343 10*3/uL [facility] RBC (Bld) [#/Vol] 4.6 10*6/uL 3.90 - 5.20 m/uL [facility] WBC (Bld) [#/Vol] 10.05 10*3/uL [facility] Basophils (Bld) [#/Vol] 0.07 10*3/uL Normal <0.11 [facility] Comment on above: Order Comment: Speci men Type: BLOOD SPECIMENOrdering Facility: [facility] Address: [address] [place] [address] Performed By: #### 5 7021-8 ####[facility] LABCLIA [id number] [place] [address] [place] Basophils/100 WBC (Bld) 0.7 % Normal [facility] Comment on above: Order Comment: Speci men Type: BLOOD SPECIMENOrdering Facility: [facility] Address: [address] [place] [address] Performed By: #### 5 7021-8 ####[facility] LABCLIA [id number] [place] [address] [place] Differential cell count method Nom (Bld) Auto Normal [facility] Comment on above: Order Comment: Speci men Type: BLOOD SPECIMENOrdering Facility: [facility] Address: [address] [place] [address] Performed By: #### 5 7021-8 ####[facility] LABCLIA [id number] [place] [address] [place] Eosinophils (Bld) [#/Vol] 0.14 10*3/uL Normal <0.46 [facility] Comment on above: Order Comment: Speci men Type: BLOOD SPECIMENOrdering Facility: [facility] Address: [address] [place] [address] Performed By: #### 5 7021-8 ####[facility] LABCLIA [id number] [place] [address] [place] Eosinophils/100 WBC (Bld) 1.4 % Normal [facility] Comment on above: Order Comment: Speci men Type: BLOOD SPECIMENOrdering Facility: [facility] Address: [address] [place] [address] Performed By: #### 5 7021-8 ####[facility] LABCL[facility] [id number] [place] [address] [place] Erythrocyte distribution width (RBC) [Ratio] 13.2 % Normal 11.5-15.0 [facility] Comment on above: Order Comment: Speci men Type: BLOOD SPECIMENOrdering Facility: [facility] Address: [address] [place] [address] Performed By: #### 5 7021-8 ####[facility] LABCLIA [id number] [place] [address] [place] Hematocrit (Bld) [Volume fraction] 42.6 % Normal 36.0-46.0 [facility] Comment on above: Order Comment: Speci men Type: BLOOD SPECIMENOrdering Facility: [facility] Address: [address] [place] [address] Performed By: #### 5 7021-8 ####[facility]CLIA [id number] [place] [address] [place] Hemoglobin (Bld) [Mass/Vol] 14.0 g/dL Normal 11.5-15.5 [facility] Comment on above: Order Comment: Speci men Type: BLOOD SPECIMENOrdering Facility: [facility] Address: [address] [place] [address] Performed By: #### 5 7021-8 ####[facility]CLIA [id number] [place] [address] [place] Immature granulocytes (Bld) [#/Vol] 0.03 10*3/uL Normal <0.10 [facility] Comment on above: Order Comment: Speci men Type: BLOOD SPECIMENOrdering Facility: [facility] Address: [address] [place] [address] Performed By: #### 5 7021-8 ####[facility]CLIA [id number] [place] [address] [place] Immature granulocytes/100 WBC (Bld) 0.3 % Normal [facility] Comment on above: Order Comment: Speci men Type: BLOOD SPECIMENOrdering Facility: [facility] Address: [address] [place] [address] Performed By: #### 5 7021-8 ####[facility] LABCLIA [id number] [place] [address] [place] Lymphocytes (Bld) [#/Vol] 2.37 10*3/uL Normal 1.00-4.00 [facility] Comment on above: Order Comment: Speci men Type: BLOOD SPECIMENOrdering Facility: [facility] Address: [address] [place] [address] Performed By: #### 5 7021-8 ####[facility] LABIA [id number] [place] [address] [place] Lymphocytes/100 WBC (Bld) 23.6 % Normal [facility] Comment on above: Order Comment: Speci men Type: BLOOD SPECIMENOrdering Facility: [facility] Address: [address] [place] [address] Performed By: #### 5 7021-8 ####[facility] LABIA [id number] [place] [address] [place] MCH (RBC) [Entitic mass] 30.4 pg Normal 26.0-34.0 [facility] Comment on above: Order Comment: Speci men Type: BLOOD SPECIMENOrdering Facility: [facility] Address: [address] [place] [address] Performed By: #### 5 7021-8 ####[facility] LABIA [id number] [place] [address] [place] MCHC (RBC) [Mass/Vol] 32.9 g/dL Normal 30.5-36.0 [facility] Comment on above: Order Comment: Speci men Type: BLOOD SPECIMENOrdering Facility: [facility] Address: [address] [place] [address] Performed By: #### 5 7021-8 ####[facility] LABIA [id number] [place] [address] [place] MCV (RBC) [Entitic vol] 92.6 fL Normal 80.0-100.0 [facility] Comment on above: Order Comment: Speci men Type: BLOOD SPECIMENOrdering Facility: [facility] Address: [address] [place] [address] Performed By: #### 5 7021-8 ####[facility] LABIA [id number] [place] [address] [place] Monocytes (Bld) [#/Vol] 0.72 10*3/uL Normal <0.87 [facility] Comment on above: Order Comment: Speci men Type: BLOOD SPECIMENOrdering Facility: [facility] Address: [address] [place] [address] Performed By: #### 5 7021-8 ####[facility] LABCLIA [id number] [facility] [address], [place] [address] [place] Monocytes/100 WBC (Bld) 7.2 % Normal [facility] Comment on above: Order Comment: Speci men Type: BLOOD SPECIMENOrdering Facility: [facility] Address: [address] [place] [address] Performed By: #### 5 7021-8 ####[facility] LABCLIA [id number] [place] [address] [place] Neutrophils (Bld) [#/Vol] 6.72 10*3/uL Normal 1.45-7.50 [facility] Comment on above: Order Comment: Speci men Type: BLOOD SPECIMENOrdering Facility: [facility] Address: [address] [place] [address] Performed By: #### 5 7021-8 ####[facility] LABCLIA [id number] [facility] [address], [facility] [place] Neutrophils/100 WBC (Bld) 66.8 % Normal [facility] Comment on above: Order Comment: Speci men Type: BLOOD SPECIMENOrdering Facility: [facility] Address: [address] [place] [address] Performed By: #### 5 7021-8 ####[facility] LABCLIA [id number] [place] [id number] [place] Nucleated RBC (Bld) [#/Vol] 10*3/uL Normal <0.01 [facility] Comment on above: Order Comment: Speci men Type: BLOOD SPECIMENOrdering Facility: [facility] Address: [address] [place] [address] Performed By: #### 5 7021-8 ####[facility] LABCLIA [id number] [place] [address] [place] Nucleated RBC/100 WBC (Bld) [Ratio] 0.0 /100 WBC Normal [facility] Comment on above: Order Comment: Speci men Type: BLOOD SPECIMENOrdering Facility: [facility] Address: [address] [place] [address] Performed By: #### 5 7021-8 ####[facility] LABCLIA [id number] [place] [address] [place] Platelet mean volume (Bld) [Entitic vol] 10.2 fL Normal 9.0-12.7 [facility] Comment on above: Order Comment: Speci men Type: BLOOD SPECIMENOrdering Facility: [facility] Address: [address] [place] [address] Performed By: #### 5 7021-8 ####[facility] LABCLIA [id number] [place] [address] [place] Platelets (Bld) [#/Vol] 343 10*3/uL Normal 150-400 [facility] Comment on above: Order Comment: Speci men Type: BLOOD SPECIMENOrdering Facility: [facility] Address: [address] [place] [address] Performed By: #### 5 7021-8 ####[facility] LABCLIA [id number] [place] [address] [place] RBC (Bld) [#/Vol] 4.60 10*6/uL Normal 3.90-5.20 [facility] Comment on above: Order Comment: Speci men Type: BLOOD SPECIMENOrdering Facility: [facility] Address: [address] [place] [address] Performed By: #### 5 7021-8 ####[facility] LABCLIA [id number] [place] [id number] [place] WBC (Bld) [#/Vol] 10.05 10*3/uL Normal 3.70-11.00 [facility] Comment on above: Order Comment: Speci men Type: BLOOD SPECIMENOrdering Facility: [facility] Address: [address] [place] [address] Performed By: #### 5 7021-8 ####[facility] LABCLIA [id number] [place] [id number] [facility] CNOVon 05-21-2024 CNOV Office Visit (MARIAM ) CHIKA GOOD ([id number]) 1970 F Date Time Provider Department 05/21/24 8:30 AM HANNAH BOLAÑOS During your visit today, we recorded the following information about you: Temperature Pulse Blood pressure Weight 97.2 degrees 84/minute 111/68 78 kg Height 1.6 m Hannah Bolaños MD 05/26/2024 8:02 PM Signed [facility] New Patient Visit May 21, 2024 Chief Complaint: Hemorrhoids History of Present Illness: Chika Good is a 53 year old female referred by SELF for second opinion of rectal pain and drainage. Ms. Good is S/p EUA, external hemorrhoidectomy by Dr. Pepe on 02/21/24. The patient noted significant pain following the procedure. The patient currently notes continued discomfort and occasionally a small drop of pus from an external sinus. Was seen in follow up 05/11 with concern for sinus at site of hemorrhoidectomy. Recommend an exam under anesthesia and fistulotomy. Referred here for 2nd opinion. She has been following with Dr. Pepe. She first noticed the onset of anal itching 2 years ago. She then noticed a tiny bump on her rectum when she was in the shower. She monitored it for a while, then noticed an increase in size 6 months later. She consulted her PCP where she was prescribed a steroid suppository that stopped the itching, but the itching resurfaced when she stopped the suppositories. She then saw Dr. Pepe for hemorrhoids that were causing pain/itching but no bleeding. She reports they banded it twice. She said 1-2 days after the banding, it fell off but the hemorrhoids were still present. Was recommended excision due to the unsuccessful response to the banding as she was still having itching. Had severe pain following hemorrhoidectomy that slowly subsided. A few weeks after hemorrhoidectomy, she noticed the itching again and now has recently been having pain again. Other symptoms she reported include a severe stinging sensation and difficulty with BMs due to pain. She consulted dermatology and her PCP again who noticed the sinus tract. Dr. Pepe examined her and said she may have a fistula and she would need a possible fistulotomy which prompted her to want a second opinion here. 2 episodes of partial fecal incontinence. One last week in the middle of the day with liquid stool. She has brownish-yellow leakage of pus from the tract. She has loose, but not liquid stool. Has frequent bowel movements 3-5 times daily. She takes a fiber supplement which seems to help. Colon cancer prevalent on paternal side. Dad dx. at 52. [facility] Examination under anesthesia and single quadrant Hemorrhoidectomy, 02/21/24- Dr. Pepe DESCRIPTION OF PROCEDURE: Sign-in was performed verifying patient site, procedure, position, critical nursing information, VTE, and antibiotic prophylaxis. The patient received 900 mg of clindamycin and sequential compression devices placed. Following induction of general/LMA anesthesia, the patient was positioned in modified lithotomy. The perianal area was prepped and draped in usual fashion. Time-out was performed verifying patient, site, procedure, position. By digital exam revealed the anterior external hemorrhoidal complex otherwise normal sized mixed hemorrhoidal complex of the right posterior left lateral position. Anoscopy demonstrated no internal anal abnormalities. At this point, the planned right anterior hemorrhoid was grasped for planned resection margins with hemostats in the lateral anoderm. Small Bella was used to grab the body of the hemorrhoid and a 2nd hemostat placed on the apex. A scalpel was used to cut the anoderm and the hemorrhoidal complex was dissected off the underlying perianal skin. External sphincter was identified and the hemorrhoid complex was dissected off the external sphincter using back of a scalpel. Then, used electrocautery to divide the anoderm up to the apex of the planned resection. The hemorrhoid was amputated and sent for pathology. 2-0 chromic thmyme-xj-mjzoh sutures placed over the apex with a running locking transition to a simple suture was used to close the mucosal defect. There was good hemostasis at this point. Exparel was injected around the incision and perianally, total of 9 mL. Dibucaine-impregnated Gelfoam was placed in the anal canal. The area was cleaned up. A dressing applied with mesh pants, carla-pad, and held in place with elastic pants. The patient was then taken out of lithotomy, extubated, and brought to recovery room in a stable condition. FINAL DIAGNOSIS A. Hemorrhoids, hemorrhoidectomy: - Skin with dilated/congested blood vessels, hemorrhage and reactive changes. Imaging/Endoscopy Reviewed 02/04/20 Colonoscopy- Dr. Pepe Findings: The perianal and digital rectal examinations were normal. A 6 mm polyp was found in the rectu (more content not included)... Normal [facility] Comprehensive metabolic 2000 panelon 05-21-2024 Albumin [Mass/Vol] 4.5 g/dL 3.9 - 4.9 g/dL [facility] ALP [Catalytic activity/Vol] 81 U/L 34 - 123 U/L [facility] ALT [Catalytic activity/Vol] 11 U/L 7 - 38 U/L [facility] Anion gap [Moles/Vol] 13 mmol/L 8 - 15 mmol/L [facility] AST [Catalytic activity/Vol] 11 U/L Low 13 - 35 U/L [facility] Bilirubin [Mass/Vol] 0.4 mg/dL 0.2 - 1.3 mg/dL [facility] Calcium [Mass/Vol] 9.8 mg/dL 8.5 - 10. 2 mg/dL [facility] Chloride [Moles/Vol] 103 mmol/L 98 - 107 mmol/L [facility] CO2 [Moles/Vol] 24 mmol/L 22 - 30 mmol/L [facility] Creatinine [Mass/Vol] 0.77 mg/dL 0.58 - 0.96 mg/dL [facility] GFR/1.73 sq M.predicted among non-blacks MDRD (S/P/Bld) [Vol rate/Area] 93 mL/min/{1.73_m2} - PINF [facility] Comment on above: Estimated Glomerular Filtration Rate (eGFR) is calculated using the 2020 CKD-EPI creatinine equation. This equation utilizes serum creatinine, sex, and age as parameters. The creatinine assay has traceable calibration to isotope dilution-mass spectrometry. Refer to KDIGO guidelines for clinical interpretation. In patients with unstable renal function, e.g. those with acute kidney injury, the eGFR may not accurately reflect actual GFR. Glucose [Mass/Vol] 95 mg/dL 74 - 99 mg/dL [facility] Comment on above: The [place] Diab[place] Association (ADA) provides guidance for cutoff values for fasting glucose and random glucose. The ADA defines fasting as no caloric intake for at least 8 hours. Fasting plasma glucose results between 100 to 125 [...] Standards of Medical Care in Diabetes 2016, [place] [employer] Association. Diabetes Care. 2016.39(Suppl 1). Interpretation and review of laboratory results Abnormal [facility] Potassium [Moles/Vol] 4.5 mmol/L 3.7 - 5.1 mmol/L [facility] Protein [Mass/Vol] 7.3 g/dL 6.3 - 8.0 g/dL [facility] Sodium [Moles/Vol] 140 mmol/L 136 - 144 mmol/L [facility] Urea nitrogen [Mass/Vol] 11 mg/dL 7 - 21 mg/dL [facility] Albumin [Mass/Vol] 4.5 g/dL Normal 3.9-4.9 [facility] Comment on above: Order Comment: Speci men Type: BLOOD SPECIMENOrdering Facility: [facility] Address: [facility] [place] [id number] Performed By: #### 2 4323-8 ####[facility] LABCLIA [id number] [facility] [id number] [address] [place] ALP [Catalytic activity/Vol] 81 U/L Normal 34-123 [facility] Comment on above: Order Comment: Speci men Type: BLOOD SPECIMENOrdering Facility: [facility] Address: [address] [place] [address] Performed By: #### 2 4323-8 ####[facility] LABCLIA [id number] [facility] [address], [facility] [place] ALT [Catalytic activity/Vol] 11 U/L Normal 7-38 [facility] Comment on above: Order Comment: Speci men Type: BLOOD SPECIMENOrdering Facility: [facility] Address: [address] [place] [address] Performed By: #### 2 4323-8 ####[facility] LABCLIA [id number] [address], [place] [address] [place] Anion gap [Moles/Vol] 13 mmol/L Normal 8-15 [facility] Comment on above: Order Comment: Speci men Type: BLOOD SPECIMENOrdering Facility: [facility] Address: [address] [place] [address] Performed By: #### 2 4323-8 ####[facility] LABCLIA [id number] [place] [id number] [place] AST [Catalytic activity/Vol] 11 U/L Low 13-35 [facility] Comment on above: Order Comment: Speci men Type: BLOOD SPECIMENOrdering Facility: [facility] Address: [address] [place] [address] Performed By: #### 2 4323-8 ####[facility] LABCLIA [id number] [address], [facility] [place] Bilirubin [Mass/Vol] 0.4 mg/dL Normal 0.2-1.3 [facility] Comment on above: Order Comment: Speci men Type: BLOOD SPECIMENOrdering Facility: [facility] Address: [address] [place], [place] [id number] Performed By: #### 2 4323-8 ####[facility] LABCLIA [id number] [address] [address] [place] Calcium [Mass/Vol] 9.8 mg/dL Normal 8.5-10.2 [facility] Comment on above: Order Comment: Speci men Type: BLOOD SPECIMENOrdering Facility: [facility] Address: [address] [place], [place] [address] Performed By: #### 2 4323-8 ####[facility] LABCLIA [id number] [address] [place] [address] [place] Chloride [Moles/Vol] 103 mmol/L Normal 98-107 [facility] Comment on above: Order Comment: Speci men Type: BLOOD SPECIMENOrdering Facility: [facility] Address: [address] [place], [place] [address] Performed By: #### 2 4323-8 ####[facility] LABCLIA [id number] [place] [id number] [place] CO2 [Moles/Vol] 24 mmol/L Normal 22-30 [facility] Comment on above: Order Comment: Speci men Type: BLOOD SPECIMENOrdering Facility: [facility] Address: [address] [place], [place] [address] Performed By: #### 2 4323-8 ####[facility] LABCLIA [id number] [address] [place] [address] [place] Creatinine [Mass/Vol] 0.77 mg/dL Normal 0.58-0.96 [facility] Comment on above: Order Comment: Speci men Type: BLOOD SPECIMENOrdering Facility: [facility] Address: [address] [place], [place] [address] Performed By: #### 2 4323-8 ####[facility] LABCLIA [id number] [place] [address] [place] Creatinine and Glomerular filtration rate.predicted panel (S/P/Bld) 93 mL/min/1.73m??? Normal >=60 [facility] Comment on above: Order Comment: Cassi osorio Type: BLOOD SPECIMENOrdering Facility: [facility] Address: [address] [place] [address] Result Comment: Tammy mated Glomerular Filtration Rate (eGFR) is calculated using the 2020 CKD-EPI creatinine equation. This equation utilizes serum creatinine, sex, and age as parameters. The creatinine assay has traceable calibration to isotope dilution-mass spectrometry. Refer to KDIGO guidelines for clinical interpretation. In patients with unstable renal function, e.g. those with acute kidney injury, the eGFR may not accurately reflect actual GFR. Performed By: #### 2 4323-8 ####[facility] LABIA [id number] [place] [address] [place] Glucose [Mass/Vol] 95 mg/dL Normal 74-99 [facility] Comment on above: Order Comment: Cassi osorio Type: BLOOD SPECIMENOrdering Facility: [facility] Address: [address] [place] [address] Result Comment: The [place] Diabetes Association (ADA) provides guidance for cutoff values for fasting glucose and random glucose. The ADA defines fasting as no caloric intake for at least 8 hours. Fasting plasma glucose results between 100 to 125 [...] Standards of Medical Care in Diabetes 2016, [place] [employer]. Diabetes Care. 2016.39(Suppl 1). Performed By: #### 2 4323-8 ####[facility] LABIA [id number] [place] [id number] [place] Potassium [Moles/Vol] 4.5 mmol/L Normal 3.7-5.1 [facility] Comment on above: Order Comment: Speci men Type: BLOOD SPECIMENOrdering Facility: [facility] Address: [address] [place] [address] Performed By: #### 2 4323-8 ####[facility] LABCLIA [id number] [facility] [address] [place] [address] [place] Protein [Mass/Vol] 7.3 g/dL Normal 6.3-8.0 [facility] Comment on above: Order Comment: Speci men Type: BLOOD SPECIMENOrdering Facility: [facility] Address: [address] [place] [address] Performed By: #### 2 4323-8 ####[facility] LABCLIA [id number] [address] [place] [address] [place] Sodium [Moles/Vol] 140 mmol/L Normal 136-144 [facility] Comment on above: Order Comment: Speci men Type: BLOOD SPECIMENOrdering Facility: [facility] Address: [address] [place] [address] Performed By: #### 2 4323-8 ####[facility] LABCLIA [id number] [address] [place] [address] [place] Urea nitrogen [Mass/Vol] 11 mg/dL Normal 7-21 [facility] Comment on above: Order Comment: Speci men Type: BLOOD SPECIMENOrdering Facility: [facility] [facility] Address: [address] [place] [address] Performed By: #### 2 [id number] ####[facility] [id number] [address] [place] [address] [place] HISTORY PHYSICALon HISTORY PHYSICAL HNO ID: [id number] Author: HANNAH BOLAÑOS MD Service: ? Author Type: Physician Type: H&P Filed: 05/26/2024 20:02 Note Text: COLORECTAL SURGERY New Patient Visit May 21, 2024 Chief Complaint: Hemorrhoids History of Present Illness: Chika Good is a 53 year old female referred by SELF for second opinion of rectal pain and drainage. Ms. Good is S/p EUA, external hemorrhoidectomy by Dr. Pepe on 02/21/24. The patient noted significant pain following the procedure. The patient currently notes continued discomfort and occasionally a small drop of pus from an external sinus. Was seen in follow up 05/11 with concern for sinus at site of hemorrhoidectomy. Recommend an exam under anesthesia and fistulotomy. Referred here for 2nd opinion. She has been following with Dr. Pepe. She first noticed the onset of anal itching 2 years ago. She then noticed a tiny bump on her rectum when she was in the shower. She monitored it for a while, then noticed an increase in size 6 months later. She consulted her PCP where she was prescribed a steroid suppository that stopped the itching, but the itching resurfaced when she stopped the suppositories. She then saw Dr. Pepe for hemorrhoids that were causing pain/itching but no bleeding. She reports they banded it twice. She said 1-2 days after the banding, it fell off but the hemorrhoids were still present. Was recommended excision due to the unsuccessful response to the banding as she was still having itching. Had severe pain following hemorrhoidectomy that slowly subsided. A few weeks after hemorrhoidectomy, she noticed the itching again and now has recently been having pain again. Other symptoms she reported include a severe stinging sensation and difficulty with BMs due to pain. She consulted dermatology and her PCP again who noticed the sinus tract. Dr. Pepe examined her and said she may have a fistula and she would need a possible fistulotomy which prompted her to want a second opinion here. 2 episodes of partial fecal incontinence. One last week in the middle of the day with liquid stool. She has brownish-yellow leakage of pus from the tract. She has loose, but not liquid stool. Has frequent bowel movements 3-5 times daily. She takes a fiber supplement which seems to help. Colon cancer prevalent on paternal side. Dad dx. at 52. [facility] Examination under anesthesia and single quadrant Hemorrhoidectomy, 02/21/24- Dr. Pepe DESCRIPTION OF PROCEDURE: Sign-in was performed verifying patient site, procedure, position, critical nursing information, VTE, and antibiotic prophylaxis. The patient received 900 mg of clindamycin and sequential compression devices placed. Following induction of general/LMA anesthesia, the patient was positioned in modified lithotomy. The perianal area was prepped and draped in usual fashion. Time-out was performed verifying patient, site, procedure, position. By digital exam revealed the anterior external hemorrhoidal complex otherwise normal sized mixed hemorrhoidal complex of the right posterior left lateral position. Anoscopy demonstrated no internal anal abnormalities. At this point, the planned right anterior hemorrhoid was grasped for planned resection margins with hemostats in the lateral anoderm. Small Bella was used to grab the body of the hemorrhoid and a 2nd hemostat placed on the apex. A scalpel was used to cut the anoderm and the hemorrhoidal complex was dissected off the underlying perianal skin. External sphincter was identified and the hemorrhoid complex was dissected off the external sphincter using back of a scalpel. Then, used electrocautery to divide the anoderm up to the apex of the planned resection. The hemorrhoid was amputated and sent for pathology. 2-0 chromic [id number] sutures placed over the apex with a running locking transition to a simple suture was used to close the mucosal defect. There was good hemostasis at this point. Exparel was injected around the incision and perianally, total of 9 mL. Dibucaine-impregnated Gelfoam was placed in the anal canal. The area was cleaned up. A dressing applied with mesh pants, carla-pad, and held in place with elastic pants. The patient was then taken out of lithotomy, extubated, and brought to recovery room in a stable condition. FINAL DIAGNOSIS A. Hemorrhoids, hemorrhoidectomy: - Skin with dilated/congested blood vessels, hemorrhage and reactive changes. Imaging/Endoscopy Reviewed 02/04/20 Colonoscopy- Dr. Pepe Findings: The perianal and digital rectal examinations were normal. A 6 mm polyp was found in the rectum. The polyp was sessile. The polyp was removed with a cold biopsy forceps. Resection and retrieval were complete. The exam was otherwise without abnormality on direct and retroflexion views. FINAL DIAGNOSIS 5. Rectum, polypectomy (E): Hyperplastic polyp. 02/04/20 EGD- Dr. Pepe Findings: (more content not included)... [facility] CHIKA GOOD ([id number]) 1970 F Date Time Provider Department 05/11/24 3:00 PM NAYA PEPE GENSWS During your visit today, we recorded the following information about you: Pulse Respiration Blood pressure Last Period 86/minute 20/minute 126/78 04/28/24 Naya Pepe MD 05/13/2024 10:05 AM Signed FOLLOW UP VISIT - POST OP NAME: Chika Good CLINIC NO.: [id number] DATE OF SERVICE: 05/11/2024 : 1970 REFERRING PHYSICIAN: Clark Javed MD Chika is a patient I am following for a complaint of symptomatic hemorrhoids and now complaint of drainage. The patient initially presented with the complaints on October 20, 2023. At that time I noted: The patient is a 53 year old female with a complaint of symptomatic hemorrhoids. The patient notes issues with itchiness on her external hemorrhoids. She notes a small nodule on the right posterior aspect just inside the anal verge. She has tried suppositories which she felt worked for a little while but not recently. She noted issues with hemorrhoids approximately 10 years ago and now for the past 4 to 6 months has noted issues with itching and some discomfort. Rectal exam findings demonstrated: Rectal exam: Significant hemorrhoid, grade 1 located in the right anterior aspect, otherwise no additional abnormalities or masses. Digital rectal exam -small nodule in the anal canal without significant tenderness consistent with a small thrombosed hemorrhoid. Failure of relaxation of the internal sphincter preventing adequate digital rectal exam. Given that this was a relatively small external complex we attempted to attempts at anoscopy and banding to see if this would at least allow the external complex to shrink up enough that she was no longer symptomatic. She noted no improvement in her symptoms and both digital rectal exam and anoscopy was quite uncomfortable. I performed an examination under anesthesia and excision of her right anterior symptomatic external hemorrhoid on February 21, 2024. This was felt to be a relatively small complex without additional concerning findings. Pathology returned as: FINAL DIAGNOSIS A. Hemorrhoids, hemorrhoidectomy: - Skin with dilated/congested blood vessels, hemorrhage and reactive changes The patient noted significant pain following the procedure. The patient currently notes continued discomfort and occasionally a small drop of pus from an external sinus. She was seen by her primary care provider who took a photograph of her perianal area. VITALS: Blood pressure 126/78, pulse 86, resp. rate 20, last menstrual period 04/28/2024, SpO2 98%. SENSITIVE EXAMINATION CONSENT: The sensitive examination was discussed with the Patient or Patient's Authorized Apparel Patternmaker. As applicable, any other physician, advance practice provider, medical student, or other health professional student that will be observing or involved in the sensitive examination for educational or training purposes was discussed with the Patient or Authorized Apparel Patternmaker. The Patient or Authorized Apparel Patternmaker has agreed to proceed with the sensitive examination. (Sensitive examination includes inspection and/or palpation of the breasts, pelvis, prostate and anorectal regions) On examination, the site of the hemorrhoid excision has a small external sinus with a small drip of pus with no signs of abscess or deeper infection. Consent was obtained and endoscopy was performed. This demonstrated a small dot of granulation tissue at the internal anal excision margin. Patient noted discomfort with both digital exam and anoscope insertion Assessment IMPRESSION: Status post excision of grade 1 external hemorrhoid now superficial fistula/sinus PLAN: I discussed with the patient at this point I would recommend an exam under anesthesia and fistulotomy. I discussed with her this is was a relatively small mostly external hemorrhoidectomy. Given her anal pain and issues with preoperative discomfort on exam and anoscopic and the degree of discomfort she had from a relatively small external hemorrhoid, I discussed with her that I expected while not as severe as a hemorrhoidectomy which she would have discomfort following the procedure. She asked if there were any other options for treatment of this issue I discussed with her I would contact one of my colleagues in colorectal surgery and asked them to evaluate her and see if there were additional or different treatment options they could offer Diagnoses: (K64.1) Grade II hemorrhoids (primary encounter diagnosis) (K64.9) Hemorrhoids, unspecified hemorrhoid type Return to Clinic: The patient is instructed to follow-up with me as needed. Naya Pepe MD UNIVERSAL PROTOCOL / SAFETY CHECKLIST Procedure to be Per (more content not included)... Normal [facility] CNOVon 05-09-2024 CNOV Office Visit (FAMPWS ) CHIKA GOOD ([id number]) 1970 F Date Time Provider Department 05/09/24 8:00 AM CLARK JAVEDDANIELLE During your visit today, we recorded the following information about you: Pulse Respiration Blood pressure 86/minute 18/minute 98/60 Clark Javed MD 05/09/2024 4:54 PM Addendum Chief Complaint Patient presents with: Follow Up HPI Chika Montesinos Good is a 53 year old female who presents here today for rectal itching Patient was dx with grade [address] Pepe for excision anal hemorrhoid 02/2024 it was banded twice before this and failed. Patient followed up Dr. Pepe's recommendations with dibucaine and sitz baths. Patient is still having intense itching. Itching is always after a BM. Sometimes randomly and on occasion at night. She did go see a humanities instructor and eval was unremarkable. Past medical history, appointments, medications, allergies reviewed. Previous Medical History PAST MEDICAL HISTORY Diagnosis Date Abnormal glandular Papanicolaou smear of cervix Abn. Pap smear (cervix) Acute gastritis without mention of hemorrhage Allergic rhinitis, seasonal Anxiety 07/07/2012 Chronic tension-type headache, intractable 03/17/2016 Depression 07/07/2012 Encounter for routine gynecological examination 01/21/[address] 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 Vitamin D deficiency 08/29/2023 Well adult exam 01/21/2020 Last done 10/26/21 Previous Surgical History PAST SURGICAL HISTORY Procedure Laterality Date ADENOIDECTOMY PRIMARY Adenoidectomy BREAST REDUCTION 09/2016 BX BREAST W/DEVICE 1ST LESION ULTRASOUND GUID Left 05/03/2015 U/S Needle core upper mid left breast DELIVERY ONLY 11/2007 [facility] COLONOSCOPY FLX DX W/COLLJ SPEC WHEN PFRMD 2003 Colonoscopy COLONOSCOPY FLX DX W/COLLJ SPEC WHEN PFRMD 08/21/2008 Colonoscopy COLONOSCOPY FLX DX W/COLLJ SPEC WHEN PFRMD 01/14/2015 COLONOSCOPY FLX DX W/COLLJ SPEC WHEN PFRMD 02/04/2020 Colonoscopy- repeat 5 year CONIZATION CERVIX W/WO DANDC RPR ELTRD EXC 1994 LEEP-Cervix DANDC, DIAG AND/OR THERAPEUTIC 12/2021 EGD 1992 REMOVAL OF FOREIGN BODY EGD TRANSORAL BIOPSY SINGLE/MULTIPLE 06/12/2008 ESOPHAGOGASTRODUODENOSCOPY TRANSORAL DIAGNOSTIC 05/16/2017 EGD ESOPHAGOGASTRODUODENOSCOPY TRANSORAL DIAGNOSTIC 02/04/2020 EGD- repeat in 1 year ESOPHAGOSCOPY FLEX BALLOON DILAT <30 MM DIAM 06/12/2008 SEPTOPLASTY 08/29/2017 Dr. Manny Sexton-nasal airway obstruction. deviated septum, inferior turbinate hypertrophy TONSILLECTOMY PRIMARY/SECONDARY Tonsillectomy Family History FAMILY HISTORY Problem Relation Age of Onset Asthma Mother Hypertension Father Colon Cancer Father Colon polyps Colon Cancer Maternal Grandfather Colon Cancer Paternal Grandfather Patient Allergies ALLERGIES No Known Allergies Current Medications Current Outpatient Medications on File Prior to Visit Medication Sig tirzepatide, weight loss (ZEPBOUND) 10 mg/0.5 mL pen injector Inject 10 mg subcutaneously one time a week. metFORMIN ER (GLUCOPHAGE XR) 500 mg 24 hr tablet Take 2 tablets by mouth daily with dinner. omeprazole (PRILOSEC) 40 mg capsule Take 1 capsule by mouth once daily. ondansetron (ZOFRAN) 4 mg tablet Take 1 tablet by mouth every 8 hours as needed for nausea/vomiting for up to 30 doses. Norethindrone, Contraceptive, 0.35 mg tablet Take 1 tablet by mouth once daily. ADELINA 0.0375 mg/24 hr estradiol (ESTRACE) 0.01 % (0.1 mg/gram) vaginal cream atorvastatin (LIPITOR) 20 mg tablet Take 1 tablet by mouth daily at bedtime. For cholesterol. fluticasone-salmeterol (ADVAIR DISKUS) 250-50 mcg/dose inhaler Inhale 1 Puff as instructed two times a day. Rinse and gargle mouth after use with water. albuterol HFA (VENTOLIN HFA) 90 mcg/actuation inhaler Inhale 2 Puffs as instructed every 4 hours as needed. CHOLECALCIFEROL, VITAMIN D3, ORAL Take by mouth as directed. Combined with omega 3 DUPIXENT SYRINGE 300 mg/2 mL injection Inject 300 mg subcutaneously every 2 weeks. (Patient not taking: Reported on 04/09/2024) No current facility-administered medications on file prior to visit. Social History Social History Tobacco Use Smoking status: Former Current packs/day: 0.00 Types: Cigarettes Start date: 07/13/1991 Quit date: 07/12/2006 Years since quittin.8 Smokeless tobacco: Never Tobacco comments: SOCIAL SMOKER IN PAST Vaping Use Vaping status: Never Used Substance Use Topics Alcohol use: Yes Comment: rare,NOT WHILE Drug use: No (more content not included)... Normal [facility] CNOVon 04-09-2024 CNOV Office Visit (OBGYWM ) CHIKA GOOD ([id number]) 1970 F Date Time Provider Department 04/09/24 8:50 AM KAILYN GILL OBGYWCeleste During your visit today, we recorded the following information about you: Pulse Blood pressure Weight Last Period 92/minute 124/74 79.4 kg 03/25/24 Kailyn Gill MD 04/09/2024 12:23 PM Signed Some documentation from previous visit of 01/03/24 was copied and pasted, documentation has been reviewed and edited as necessary for today's visit. Patient Summary: Chika is a 53 year old Female who presents for follow-up evaluation of obesity/weight management to treat and prevent related co-morbidities. In our previous visits we have discussed lifestyle intervention including a nutrition recommendations and physical activity optimization. Her last office visit was 3 months ago. Assessment/plan from last visit: - discussed doing two protein shakes and adding more whole foods with lunch and then regular dinner to add more protein to day - reviewed MINIMUM protein 90g/day - continue vit D supplement - continue with Whole foods, Low carb, High protein -Continue prilosec for GERD -Continue Lipitor for Hypercholesteremia - Reviewed previous labs- CMP, LIPIDS and INSULIN ordered. - Continue METFORMIN and ZEPBOUND- pt reports insurance will no longer cover in March. Reviewed options- maria guadalupe direct vs changing to oral medications. Checking into savings card. -has follow up with PCP for routine care - discussed Journaling how she is feeling so she remembers and helps continue healthy habits. Interval History PT specifies the following items as new or significant updates since the last appointment: - having complete aversion to food with last injection has not been this bad before. No vomiting. Not able to tolerate much but water. - no constipation or diarrhea - exercising every day - feels great, not winded going up steps. Going to [place] this summer and wants to be in shape for steps [facility]. - not snoring as much per Weight loss since last vist: 17 lb Total weight lost: 59 lb - Last Wt 04/05/24 175 lb 01/03/24 192 lb 10/20/23 198 lb 08/30/23 215 lb 07/12/23 224 lb STARTING WEIGHT 05/30/23 234 lb (106.1 kg) 5% weight loss = 218 lbs, 10% weight loss = 206 lbs Anti-obesity medications: Tirzepatide (Zepbound). Benefit:decreased food noise , decreased appetite, Adverse effects: none Anti-obesity medications: Metformin. Benefit:elevated insulin (86) Adverse effects: none Weight promoting medications: Inhaled corticosteroid Previous Diet (initial appointment): Wakes up: 5:30am- black coffee - drinks until lunch time Breakfast- 9am- Della cottage cheese pineapple and harley seeds, pea protein powder Lunch- seed 70cal nhi killer- Rotisserie chicken, garlic coffee Edamame, grapes (10) Dinner- Bonza chickpea pasta, chicken pasta, pepper, with veggies or schezwan chicken with white rice. Red cabbage with rice vinegar Snacks- sometimes chips, beef stick, cheese, Diet/Nutrition overview: Fluids: water (80-120oz) , black coffee 6cups Quality of diet: 24hr recall suggests in between diet. Characterization of diet:Structured. Sleeve Setter Safety Stitch of impaired eating habits:excessive hunger, emotion, and stress Eating Disorder no Preferred foods: Cravings: salty Nutrition Now: same B- Oikos triple zero - sometimes eggs with cottage cheese or protein shake L- cheese, or beef stick. salad, rotissere chicken, primal kitchen avocado dressing or protein Shake ( owyn 32g) , nuts D- meat and vegetable (broccoli), Dietary changes: Eating 3 meals a day, including breakfast Increasing water intake Controlling portions Identify hunger and satiety cues Increasing protein Reducing carbohydrates Current Barriers: inadequate sleep duration/QUALITY Exercise: 6-7 days week- walking and steps, weight training. , feeling stronger. Stress: stable Sleep: stable but up multiple times 8 hours. LITO YES ; CPAP yes - NOT USING (01/02) Estimated Creatinine Clearance: 98.9 mL/min (based on SCr of 0.69 mg/dL). PAST MEDICAL HISTORY Diagnosis Date Abnormal glandular Papanicolaou smear of cervix Abn. Pap smear (cervix) Acute gastritis without mention of hemorrhage Allergic rhinitis, seasonal Anxiety 07/07/2012 Chronic tension-type headache, intractable 03/17/2016 Depression 07/07/2012 Encounter for routine gynecological examination 01/21/[address] 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 Normal [facility] Hiro 03-23-2024 [facility] Telephone (OBGYWM) CHIKA GOOD ([id number]) 1970 F Date Time Provider Department 03/23/24 KAILYN GILL OBGYWM During your visit today, we recorded the following information about you: Raphael Vital MA 03/23/2024 10:00 AM Signed Received PA request for patients Zepbound. Submitted and will await response from patients plan. AMNA King Deidre, MD 03/23/2024 10:26 AM Signed Raphael, let's also add her LITO to diagnosis for Zepbound. Please add her sleep study results if needed. In procedure notes form 2018- medication orders placed. Raphael Vital MA 03/23/2024 10:33 AM Signed I added LITO as a secondary diagnosis. I just received a notification from Cover My Meds that it was approved. AMNA King Deidre, MD 03/23/2024 10:52 AM Signed Great, thank you Allergies As of Date: 03/23/2024 (No Known Allergies) Date Reviewed: 02/21/2024 Reviewed by: lAice Moeller, KWAME - Fully Assessed Reason for Visit: Insurance Authorization [[id number]] Primary Visit Diagnosis:LITO (obstructive sleep apnea) [G47.33] Other Visit Diagnosis:Class 2 severe obesity with serious comorbidity and body mass index (BMI) of 35.0 to 35.9 in adult, unspecified obesity type (HCC) [E66.812, E66.01, Z68.35] Order(s):tirzepatide, weight loss (ZEPBOUND) 15 mg/0.5 mL pen injectorInject 15 mg subcutaneously one time a week.Disp: 6 mLRfl: 1 Prescriptions as of 03/23/2024 - tirzepatide, weight loss (ZEPBOUND) 15 mg/0.5 mL pen injector Inject 15 mg subcutaneously one time a week. - metFORMIN ER (GLUCOPHAGE XR) 500 mg 24 hr tablet Take 2 tablets by mouth daily with dinner. - omeprazole (PRILOSEC) 40 mg capsule Take 1 capsule by mouth once daily. - ondansetron (ZOFRAN) 4 mg tablet Take 1 tablet by mouth every 8 hours as needed for nausea/vomiting for up to 30 doses. - Norethindrone, Contraceptive, 0.35 mg tablet Take 1 tablet by mouth once daily. - ADELINA 0.0375 mg/24 hr - estradiol (ESTRACE) 0.01 % (0.1 mg/gram) vaginal cream - atorvastatin (LIPITOR) 20 mg tablet Take 1 tablet by mouth daily at bedtime. For cholesterol. - fluticasone-salmeterol (ADVAIR DISKUS) 250-50 mcg/dose inhaler Inhale 1 Puff as instructed two times a day. Rinse and gargle mouth after use with water. - albuterol HFA (VENTOLIN HFA) 90 mcg/actuation inhaler Inhale 2 Puffs as instructed every 4 hours as needed. - CHOLECALCIFEROL, VITAMIN D3, ORAL Take by mouth as directed. Combined with omega 3 - DUPIXENT SYRINGE 300 mg/2 mL injection Inject 300 mg subcutaneously every 2 weeks. Meds Comments as of 12/01/2007: All medications reviewed today/October 10, 2007 [facility] All medications reviewed today/December 01, 2007 Sharon Poe Rn Problem List As Of Date 03/23/2024 Noted Resolved ADVANCED MATERNAL AGE:MULTIPARA[659.63] [O09.52*04/19/2007 04/19/2007 AMA PRIMIGRAVID-ANTEPARTUM [O09.519] 04/19/2007 11/21/2007 Family history of malignant neoplasm of gastroi* Moderate persistent asthma without complication* Allergic rhinitis, seasonal [J30.2] Anxiety [F41.9] 07/07/2012 Depression [F32.A] 07/07/2012 Obesity (BMI 35.0-39.9 without comorbidity) [E6*06/06/2013 Hyperlipidemia, mixed [E78.2] 11/01/2014 LITO (obstructive sleep apnea) [G47.33] 01/22/2015 Abnormal mammogram [R92.8] 05/03/2015 Psoriasis [L40.9] 12/10/2015 GERD without esophagitis [K21.9] 12/10/2015 Upper back pain [M54.9] 03/17/2016 Neck pain [M54.2] 03/17/2016 Chronic tension-type headache, intractable [G44*03/17/2016 Large breasts [N62] 03/17/2016 Encounter for screening for diabetes mellitus [*03/31/2017 Well adult exam [Z00.00] 01/21/2020 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] 01/21/2020 Encounter for routine gynecological examination*01/21/2020 Medication management [Z79.899] 11/01/2022 Vitamin D deficiency [E55.9] 08/29/2023 Encounter for screening mammogram for breast ca*01/03/2024 Prescriptions ordered this encounter Disp Refills Start End TIRZEPATIDE (WEIGHT LOSS) 15 MG/0.5 * 6 mL 1 03/23/2024 09/19/2024 Route: SUBCUTANEOUS Sig: Inject 15 mg subcutaneously one time a week. Medications Discontinued During This Encounter Prescriptions - tirzepatide, weight loss (ZEPBOUND) 15 mg/0.5 mL pen injector (Discontinued) Inject 15 mg subcutaneously one time a week. Encounter Status:Closed by RAPHAEL VITAL on 03/23/24 [facility] ANES POSTPROC EVALon 024 ANES POSTPROC EVAL HNO ID: [id number] Author: HAKEEM LOWERY MD Service: Anesthesiology Author Type: Anesthesiologist Type: Anesthesia Postprocedure Evaluation Filed: 02/21/2024 16:02 Note Text: POST ANESTHESIA EVALUATION NOTE : 1970 Procedure Summary Date: 02/21/24 Room / Location: [facility] OR03 / [facility] OR Anesthesia Start: 1341 Anesthesia Stop: 1429 Procedure: HEMORRHOIDECTOMY EXTERNAL AND INTERNAL SINGLE COLUMN/GROUP W/ FISSURECTOMY (Anus) Diagnosis: Grade II hemorrhoids (Grade II hemorrhoids [K64.1]) Surgeons: Naya Pepe MD Responsible Provider: Hakeem Lowery MD Anesthesia Type: general ASA Status: 2 Anesthesia Type: general Airway Type: LMA Last Vitals Vitals Value Taken Time BP 113/55 02/21/24 1516 Temp 36.1 ?C (97 ?F) 02/21/24 1425 Pulse 64 02/21/24 1521 Resp 13 02/21/24 1521 SpO2 95 % 02/21/24 1521 Vitals shown include unfiled device data. Post Anesthesia Patient Status Patient Evaluation: PACU. PACU/ICU Patient Condition: stable. Anticipated Disposition: phase 2 then home. Neurological Status: aware and responsive. Pulmonary Status: breathing comfortably on room air Airway Control: returned to baseline unsupported. Cardiovascular Status: stable. Pain Management: clinically adequate - multimodal analgesia pain management approach Postoperative Hydration: acceptable. Intraoperative Events: no significant anesthesia events Recommendation: continue current plan of care. Anesthesia Observations No Documentation SIGNATURE: Hakeem Lowery MD PATIENT NAME: Chika Good DATE: February 21, 2024 TIME: 4:02 PM CSN: [id number] [facility] ANES PRE-OPon 02-21-2024 ANES PRE-OP HNO ID: [id number] Author: HAKEEM LOWERY MD Service: Anesthesiology Author Type: Anesthesiologist Type: Anesthesia Preprocedure Evaluation Filed: 02/21/2024 12:55 Note Text: ANESTHESIOLOGY DAY OF SURGERY NOTE : 1970 Procedure Information Date/Time: 02/21/24 1310 Procedure: HEMORRHOIDECTOMY EXTERNAL AND INTERNAL SINGLE COLUMN/GROUP W/ FISSURECTOMY (Anus) Location: [facility] OR / [facility] OR Surgeons: Naya Pepe MD Estimated body mass index is 33.48 kg/m? as calculated from the following: Height as of this encounter: 160 cm (5' 3). Weight as of this encounter: 85.7 kg (189 lb). Most recent hematocrit and potassium results: HCT 40.5 06/14/2023 K 4.4 02/01/2024 Relevant Problems ANESTHESIA (+) LITO (obstructive sleep apnea) GI (+) GERD without esophagitis NEURO-PSYCH (+) Chronic tension-type headache, intractable PULMONARY (+) Moderate persistent asthma without complication (+) LITO (obstructive sleep apnea) I - PHYSICAL EVALUATION AIRWAY Patient intubated: No. Mallampati: II. TM distance: >3 FB. Neck ROM: full ROM without neurological symptoms. Mouth opening: adequate. Short neck: no. Thick neck: no DENTAL Dental findings: poor dentition. Additional exam findings: no II - ANESTHESIA PLAN ASA Score: 2 Anesthetic Plan: general Airway type: LMA NPO Status: adequate Beta Rishi Monitoring Plan Monitoring plan: Standard ASA. Post Procedure Analgesic Plan Postoperative analgesic plan: parenteral or oral opioids and multimodal analgesia. Informed Consent Anesthetic risks, benefits, alternatives, personnel and consent discussed: yes. Patient / Surrogate agrees to blood products: yes DNR status not reviewed with patient and/or family prior to surgery. Significant changes in the patient condition since the History and Physical, not otherwise documented in primary service progress note: no. Potential Anesthesia issues that may suggest increased risk of complications or contraindication to planned procedure: none. Vitals Value Taken Time BP 106/72 02/21/24 1230 Pulse 73 02/21/24 1230 Resp 18 02/21/24 1230 Temp 36.9 ?C (98.4 ?F) 02/21/24 1230 SpO2 96 % 02/21/24 1230 Facility-Administered Medications as of 02/21/2024 Medication Dose Route Frequency - lidocaine (PF) 10 mg/mL (1 %) 1-2 mg injection (XYLOCAINE) 0.1-0.2 mL INTRADERMAL PRN - NaCl 0.9% iv flush bag 20 mL INTRAVENOUS PRN - clindamycin iv piggyback 900 mg in D5W 50 mL (CLEOCIN) 900 mg INTRAVENOUS Pre-Op Once - acetaminophen 1,000 mg tab(s) (TYLENOL) 1,000 mg ORAL As Directed - promethazine 12.5 mg tab(s) (PHENERGAN) 12.5 mg ORAL ONCE - lactated ringers iv infusion 5-30 mL/hr INTRAVENOUS CONTINUOUS Outpatient Medications as of 02/21/2024 Medication Sig - omeprazole (PRILOSEC) 40 mg capsule Take 1 capsule by mouth once daily. - Norethindrone, Contraceptive, 0.35 mg tablet Take 1 tablet by mouth once daily. - ADELINA 0.0375 mg/24 hr - fluticasone-salmeterol (ADVAIR DISKUS) 250-50 mcg/dose inhaler Inhale 1 Puff as instructed two times a day. Rinse and gargle mouth after use with water. - DUPIXENT SYRINGE 300 mg/2 mL injection Inject 300 mg subcutaneously every 2 weeks. - ondansetron (ZOFRAN) 4 mg tablet Take 1 tablet by mouth every 8 hours as needed for nausea/vomiting for up to 30 doses. - metFORMIN ER (GLUCOPHAGE XR) 500 mg 24 hr tablet Take 2 tablets by mouth daily with dinner. - estradiol (ESTRACE) 0.01 % (0.1 mg/gram) vaginal cream - atorvastatin (LIPITOR) 20 mg tablet Take 1 tablet by mouth daily at bedtime. For cholesterol. - albuterol HFA (VENTOLIN HFA) 90 mcg/actuation inhaler Inhale 2 Puffs as instructed every 4 hours as needed. - CHOLECALCIFEROL, VITAMIN D3, ORAL Take by mouth as directed. Combined with omega 3 I have interviewed and examined the patient. I have reviewed the medical record and/or the pre-anesthesia evaluation, pertinent labs, and test results. This contains updated information obtained within 48 hours of Surgery/Procedure. SIGNATURE: Hakeem Lowery MD PATIENT NAME: Chika Good DATE: February 21, 2024 TIME: 12:54 PM CSN: [id number] [facility] BRIEF OP NOTon 02-21-2024 BRIEF OP NOT HNO ID: [id number] Author: NAYA PEPE MD Service: General Surgery Author Type: Physician Type: Brief Op Note Filed: 02/21/2024 14:33 Note Text: BRIEF OPERATIVE NOTATION FOR SURGICAL PROCEDURE. Chika Good 1970 [id number] female LOG ID: [id number] Surgery/Procedure Date: 02/21/2024 Incision/Procedure Start Time: 2:02 PM Incision Close/Procedure End Time: 2:15 PM Surgeon(s)/Proceduralist(s) and Filing And Polishing Supervisor(s): Surgeons and Role: * Naya Pepe MD - Primary Physician Filing And Polishing Supervisor: Marietta Bowen PA-C REFERRING PHYSICIAN: Outpatient DEPT: [facility] PROVIDER: Kathrin POS: [id number] ANESTHESIA: General ASA CLASS: 2 - mild DIAGNOSIS: right anterior symptomatic external hemorrhoid PROCEDURE: Examination Under Anesthesia, Hemorrhoidectomy - 55413-475 IVF: 400 EBL: 50 Specimens: right anterior hemorrhoidal complex ADDITIONAL DIAGNOSES: FINDINGS: COMPLICATIONS: None PMHx - PAST MEDICAL HISTORY Diagnosis Date Abnormal glandular Papanicolaou smear of cervix Abn. Pap smear (cervix) Acute gastritis without mention of hemorrhage Allergic rhinitis, seasonal Anxiety 07/07/2012 Chronic tension-type headache, intractable 03/17/2016 Depression 07/07/2012 Encounter for routine gynecological examination 01/21/[address] 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 - [id number] Naya Pepe MD [facility] HISTORY PHYSICALon HISTORY PHYSICAL HNO ID: [id number] Author: NAYA PEPE MD Service: General Surgery Author Type: Physician Type: H&P Filed: 02/21/2024 12:50 Note Text: HISTORY AND PHYSICAL Chika Good 1970 REFERRING PHYSICIAN: Latrice Etienne APRN.* CHIEF COMPLAINT: Hemorrhoids HPI: The patient is a 53 year old female with a complaint of symptomatic hemorrhoids. The patient notes issues with itchiness on her external hemorrhoids. She notes a small nodule on the right posterior aspect just inside the anal verge. She has tried suppositories which she felt worked for a little while but not recently. She noted issues with hemorrhoids approximately 10 years ago and now for the past 4 to 6 months has noted issues with itching and some discomfort. She has a family history of colon cancer. I performed upper and lower endoscopy on February 03, 2022. The patient was found of a 6 mm Polyp which returned as a hyperplastic polyp. I recommended follow-up colonoscopy in 5 years given her family history. Upper endoscopy demonstrated gastritis and mild distal esophagitis. The patient is being seen by me at the request of Latrice Etienne APRN.* my opinion and advice regarding symptomatic hemorrhoids. Has had hemorrhoidal banding twice with no improvement in the symptoms of her external symptomatic hemorrhoid PAST MEDICAL HISTORY PAST MEDICAL HISTORY Diagnosis Date Abnormal glandular Papanicolaou smear of cervix Abn. Pap smear (cervix) Acute gastritis without mention of hemorrhage Allergic rhinitis, seasonal Anxiety 07/07/2012 Chronic tension-type headache, intractable 03/17/2016 Depression 07/07/2012 Encounter for routine gynecological examination 01/21/[address] 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 Vitamin D deficiency 08/29/2023 Well adult exam 01/21/2020 Last done 10/26/21 PAST SURGICAL HISTORY PAST SURGICAL HISTORY Procedure Laterality Date ADENOIDECTOMY PRIMARY Adenoidectomy BREAST REDUCTION 09/2016 BX BREAST W/DEVICE 1ST LESION ULTRASOUND GUID Left 05/03/2015 U/S Needle core upper mid left breast DELIVERY ONLY 11/2007 [facility] COLONOSCOPY FLX DX W/COLLJ SPEC WHEN PFRMD 2003 Colonoscopy COLONOSCOPY FLX DX W/COLLJ SPEC WHEN PFRMD 08/21/2008 Colonoscopy COLONOSCOPY FLX DX W/COLLJ SPEC WHEN PFRMD 01/14/2015 COLONOSCOPY FLX DX W/COLLJ SPEC WHEN PFRMD 02/04/2020 Colonoscopy- repeat 5 year CONIZATION CERVIX W/WO DANDC RPR ELTRD EXC 1994 LEEP-Cervix DANDC, DIAG AND/OR THERAPEUTIC 12/2021 EGD 1992 REMOVAL OF FOREIGN BODY EGD TRANSORAL BIOPSY SINGLE/MULTIPLE 06/12/2008 ESOPHAGOGASTRODUODENOSCOPY TRANSORAL DIAGNOSTIC 05/16/2017 EGD ESOPHAGOGASTRODUODENOSCOPY TRANSORAL DIAGNOSTIC 02/04/2020 EGD- repeat in 1 year ESOPHAGOSCOPY FLEX BALLOON DILAT <30 MM DIAM 06/12/2008 SEPTOPLASTY 08/29/2017 Dr. Manny Sexton-nasal airway obstruction. deviated septum, inferior turbinate hypertrophy TONSILLECTOMY PRIMARY/SECONDARY Tonsillectomy CURRENT MEDICATIONS Current Outpatient Medications Medication Sig tirzepatide, weight loss (ZEPBOUND) 12.5 mg/0.5 mL pen injector Inject 12.5 mg subcutaneously one time a week. Patient should start on January 24, 2024. omeprazole (PRILOSEC) 40 mg capsule Take 1 capsule by mouth once daily. ondansetron (ZOFRAN) 4 mg tablet Take 1 tablet by mouth every 8 hours as needed for nausea/vomiting for up to 30 doses. metFORMIN ER (GLUCOPHAGE XR) 500 mg 24 hr tablet Take 2 tablets by mouth daily with dinner. Norethindrone, Contraceptive, 0.35 mg tablet Take 1 tablet by mouth once daily. ADELINA 0.0375 mg/24 hr estradiol (ESTRACE) 0.01 % (0.1 mg/gram) vaginal cream atorvastatin (LIPITOR) 20 mg tablet Take 1 tablet by mouth daily at bedtime. For cholesterol. fluticasone-salmeterol (ADVAIR DISKUS) 250-50 mcg/dose inhaler Inhale 1 Puff as instructed two times a day. Rinse and gargle mouth after use with water. albuterol HFA (VENTOLIN HFA) 90 mcg/actuation inhaler Inhale 2 Puffs as instructed every 4 hours as needed. CHOLECALCIFEROL, VITAMIN D3, ORAL Take by mouth as directed. Combined with omega 3 DUPIXENT SYRINGE 300 mg/2 mL injection Inject 300 mg subcutaneously every 2 weeks. No current facility-administered medications for this visit. ALLERGIES: Patient has no known allergies. PERSONAL HISTORY: SOCIAL HISTORY Social History Tobacco Use Smoking status: Former Current packs/day: 0.00 Types: Cigarettes Start date: 07/13/1991 Quit date: 07/12/2006 Years since quittin.5 Smokeless tobacco: Never Tobacco comments: SOCIAL SMOKER IN PAST Vaping Use Vaping status: Never Used Substance Use Topi (more content not included)... [facility] OPERATIVE NOon 02-21-2024 OPERATIVE NO HNO ID: [id number] Author: NAYA PEPE MD Service: General Surgery Author Type: Physician Type: Operative Report Filed: 02/26/2024 06:33 Note Text: [facility] - Operative Report CHIKA GOOD : 1970 AGE: 53. SEX: F PATIENT TYPE: A HOSP SVC: [facility] LOCATION: [facility] ATTENDING PHYSICIAN: Naya Pepe M.D. CSN NUMBER: [id number] DATE OF SURGERY/PROCEDURE: 02/21/2024 INCISION/PROCEDURE START TIME: 2:02 p.m. INCISION CLOSE/PROCEDURE END TIME: 2:15 p.m. PREOPERATIVE DIAGNOSIS: Right anterior symptomatic external hemorrhoid. POSTOPERATIVE DIAGNOSIS: Right anterior symptomatic external hemorrhoid. Normal anoscopy. SURGEON: Naya Pepe M.D. GASOLINE SERVICE ATTENDANT: Marietta Bowen PA-C. SURGERY/PROCEDURE: Examination under anesthesia and single quadrant hemorrhoidectomy. ANESTHESIA: General endotracheal. LOGIN ID: [id number]. ANESTHESIOLOGIST: Dr. Hakeem Lowery. ASA: 2. INTRAVENOUS FLUIDS: 400 mL. ESTIMATED BLOOD LOSS: 50 mL. URINE OUTPUT: No catheter. FINDINGS: As above. SPECIMENS: Right anterior mixed hemorrhoid complex. DRAINS: None. COMPLICATIONS: None. DISPOSITION: Patient was taken to PACU in stable condition. DESCRIPTION OF PROCEDURE: Sign-in was performed verifying patient site, procedure, position, critical nursing information, VTE, and antibiotic prophylaxis. The patient received 900 mg of clindamycin and sequential compression devices placed. Following induction of general/LMA anesthesia, the patient was positioned in modified lithotomy. The perianal area was prepped and draped in usual fashion. Time-out was performed verifying patient, site, procedure, position. By digital exam revealed the anterior external hemorrhoidal complex otherwise normal sized mixed hemorrhoidal complex of the right posterior left lateral position. Anoscopy demonstrated no internal anal abnormalities. At this point, the planned right anterior hemorrhoid was grasped for planned resection margins with hemostats in the lateral anoderm. Small Bella was used to grab the body of the hemorrhoid and a 2nd hemostat placed on the apex. A scalpel was used to cut the anoderm and the hemorrhoidal complex was dissected off the underlying perianal skin. External sphincter wasidentified and the hemorrhoid complex was dissected off the external sphincter using back of a scalpel. Then, used electrocautery to divide the anoderm up to the apex of the planned resection. The hemorrhoid was amputated and sent for pathology. 2-0 chromic [id number] sutures placed over the apex with a running locking transition to a simple suture was used to close the mucosal defect. There was good hemostasis at this point. Exparel was injected around the incision and perianally, total of 9 mL. Dibucaine-impregnated Gelfoam was placed in the anal canal. The area was cleaned up. A dressing applied with mesh pants, carla-pad, and held in place with elastic pants. The patient was then taken out of lithotomy, extubated, and brought to recovery room in a stable condition. Marietta Bowen, assisted in prepping and position the patient this ends operative dictation for Chika Pepe M.D. [id number] /[id number] [facility] SURGICAL PATHOLOGYon 024 CASE REPORT [facility] Comment on above: Order Comment: Speci men Type: TISSUE SPECIMEN Ordering Facility: [facility] Address: [address] [place] [address] Result Comment: Surg ica Pathology Report Case: [id number] Authorizing Provider: Naya Pepe MD Collected: 02/21/2024 02:14 PM Ordering Location: [facility] Surgery Received: 02/21/2024 03:10 PM Pathologist: Roel Murry MD, PhD Specimen: Hemorrhoid, Resection Performed By: #### S #### [facility] CLIA [id number] [address] [place] [address] [place] CLINICAL HISTORY [facility] Comment on above: Order Comment: Speci men Type: TISSUE SPECIMEN Ordering Facility: [facility] Address: [address] [place] [address] Result Comment: Pre- op diagnosis: Grade II hemorrhoids [K64.1] Performed By: #### S #### [facility] CLIA [id number] [address] [place] [address] [place] FINAL DIAGNOSIS [facility] Comment on above: Order Comment: Speci men Type: TISSUE SPECIMEN Ordering Facility: [facility] Address: [address] [place] [address] Result Comment: A. H emorrhoids, hemorrhoidectomy: - Skin with dilated/congested blood vessels, hemorrhage and reactive changes. Performed By: #### S #### [facility] CLIA [id number] [address] [place] [address] [place] FINAL PERFORMING LAB [facility] Comment on above: Order Comment: Speci jo Type: TISSUE SPECIMEN Ordering Facility: [facility] Address: [address] [place] [address] Result Comment: Diag nostic interpretation performed at [facility], [address] [place] [address] CLIA# [id number] Rn Perioperative: Steven Thapa M.D. Performed By: #### S #### [facility] CLIA [id number] [address] [place] [address] [place] GROSS DESCRIPTION [facility] Comment on above: Order Comment: Cassi osorio Type: TISSUE SPECIMEN Ordering Facility: [facility] Address: [address] [place] [address] Result Comment: Concepción fierro, Resection Received in formalin labeled hemorrhoid resection is a single piece of pink-varma smooth and glistening tissue measuring 2.5 x 1.8 x 0.5 cm. The specimen is serially sectioned to reveal a pink-varma diffusely hemorrhagic cut surface. The specimen is representatively submitted in cassette A1. MBB/NADEEM February 22, 2024 9:34 AM [place] [address] Performed By: #### S #### [facility] CLIA [id number] [address] [place] [address] [place] Hiro 02-02-2024 [facility] Telephone ([facility]) CHIKA GOOD ([id number]) 1970 F Date Time Provider Department 02/02/24 CLARK JAVED [facility] During your visit today, we recorded the following information about you: Clark Javed MD 02/02/2024 9:23 AM Signed Let patient know her A1c screen for diabetes was good. I looked at her lipid panel that was done by OB and the Trigs and LDL were good. Her good Chol (HDL) was low and this can be increased through exercise. Luma Lim RN 02/02/2024 9:25 AM Signed Pt called and is notified of providers results and instructions. Pt voices understanding. Luma Lim RN Allergies As of Date: 02/02/2024 (No Known Allergies) Date Reviewed: 01/25/2024 Reviewed by: Rosalba Ames LPN - Fully Assessed Reason for Visit: Results [95] Prescriptions as of 02/02/2024 - tirzepatide, weight loss (ZEPBOUND) 15 mg/0.5 mL pen injector Inject 15 mg subcutaneously one time a week. - omeprazole (PRILOSEC) 40 mg capsule Take 1 capsule by mouth once daily. - ondansetron (ZOFRAN) 4 mg tablet Take 1 tablet by mouth every 8 hours as needed for nausea/vomiting for up to 30 doses. - metFORMIN ER (GLUCOPHAGE XR) 500 mg 24 hr tablet Take 2 tablets by mouth daily with dinner. - Norethindrone, Contraceptive, 0.35 mg tablet Take 1 tablet by mouth once daily. - ADELINA 0.0375 mg/24 hr - estradiol (ESTRACE) 0.01 % (0.1 mg/gram) vaginal cream - atorvastatin (LIPITOR) 20 mg tablet Take 1 tablet by mouth daily at bedtime. For cholesterol. - fluticasone-salmeterol (ADVAIR DISKUS) 250-50 mcg/dose inhaler Inhale 1 Puff as instructed two times a day. Rinse and gargle mouth after use with water. - albuterol HFA (VENTOLIN HFA) 90 mcg/actuation inhaler Inhale 2 Puffs as instructed every 4 hours as needed. - CHOLECALCIFEROL, VITAMIN D3, ORAL Take by mouth as directed. Combined with omega 3 - DUPIXENT SYRINGE 300 mg/2 mL injection Inject 300 mg subcutaneously every 2 weeks. Meds Comments as of 12/01/2007: All medications reviewed today/October 10, 2007 [facility] All medications reviewed December 01, 2007 Sharon Poe Rn Problem List As Of Date 02/02/2024 Noted Resolved ADVANCED MATERNAL AGE:MULTIPARA[659.63] [O09.52*04/19/2007 04/19/2007 AMA PRIMIGRAVID-ANTEPARTUM [O09.519] 04/19/2007 11/21/2007 Family history of malignant neoplasm of gastroi* Moderate persistent asthma without complication* Allergic rhinitis, seasonal [J30.2] Anxiety [F41.9] 07/07/2012 Depression [F32.A] 07/07/2012 Obesity (BMI 35.0-39.9 without comorbidity) [E6*06/06/2013 Hyperlipidemia, mixed [E78.2] 11/01/2014 LITO (obstructive sleep apnea) [G47.33] 01/22/2015 Abnormal mammogram [R92.8] 05/03/2015 Psoriasis [L40.9] 12/10/2015 GERD without esophagitis [K21.9] 12/10/2015 Upper back pain [M54.9] 03/17/2016 Neck pain [M54.2] 03/17/2016 Chronic tension-type headache, intractable [G44*03/17/2016 Large breasts [N62] 03/17/2016 Encounter for screening for diabetes mellitus [*03/31/2017 Well adult exam [Z00.00] 01/21/2020 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] 01/21/2020 Encounter for routine gynecological examination*01/21/2020 Medication management [Z79.899] 11/01/2022 Vitamin D deficiency [E55.9] 08/29/2023 Encounter for screening mammogram for breast ca*01/03/2024 Encounter Status:Closed by LUMA LIM on 02/02/24 Normal [facility] Comprehensive metabolic 2000 panelon 02-01-2024 Albumin [Mass/Vol] 4.3 g/dL Normal 3.9-4.9 [facility] Comment on above: Order Comment: Speci men Type: BLOOD SPECIMENOrdering Facility: [facility] Address: [address] [place] [address] [place] [address] Performed By: #### 2 4323-8, 67938-9 ####[facility] [id number] [place] [id number] [place] ALP [Catalytic activity/Vol] 78 U/L Normal 34-123 [facility] Comment on above: Order Comment: Speci men Type: BLOOD SPECIMENOrdering Facility: [facility] Address: [address] [place] [address] Performed By: #### 2 4323-8, 99585-7 ####[facility] [id number] [place] [address] [place] ALT [Catalytic activity/Vol] 19 U/L Normal 7-38 [facility] Comment on above: Order Comment: Speci men Type: BLOOD SPECIMENOrdering Facility: [facility] Address: [address] [place] [address] Performed By: #### 2 4323-8, 69923-0 ####[facility] [id number] [place] [address] [place] Anion gap [Moles/Vol] 12 mmol/L Normal 8-15 [facility] Comment on above: Order Comment: Speci men Type: BLOOD SPECIMENOrdering Facility: [facility] Address: [address] [place] [address] Performed By: #### 2 4323-8, 22021-3 ####[facility] [id number] [place] [address] [place] AST [Catalytic activity/Vol] 15 U/L Normal 13-35 [facility] Comment on above: Order Comment: Speci men Type: BLOOD SPECIMENOrdering Facility: [facility] Address: [address] [place] [address] Performed By: #### 2 4323-8, 73898-9 ####[facility] [id number] [place] [address] [place] Bilirubin [Mass/Vol] 0.4 mg/dL Normal 0.2-1.3 [facility] Comment on above: Order Comment: Speci men Type: BLOOD SPECIMENOrdering Facility: [facility] Address: [address] [place] [address] Performed By: #### 2 4323-8, 45321-1 ####[facility] [id number] [place] [address] [place] Calcium [Mass/Vol] 9.2 mg/dL Normal 8.5-10.2 [facility] Comment on above: Order Comment: Speci men Type: BLOOD SPECIMENOrdering Facility: [facility] Address: [address] [place] [address] Performed By: #### 2 4323-8, 01764-6 ####[facility] [id number] [place] [address] [place] Chloride [Moles/Vol] 103 mmol/L Normal 98-107 [facility] Comment on above: Order Comment: Speci men Type: BLOOD SPECIMENOrdering Facility: [facility] Address: [address] [place] [address] Performed By: #### 2 4323-8, 97315-5 ####[facility] LABCLIA [id number] [place] [address] [place] CO2 [Moles/Vol] 24 mmol/L Normal 22-30 [facility] Comment on above: Order Comment: Speci men Type: BLOOD SPECIMENOrdering Facility: [facility] Address: [address] [place] [address] Performed By: #### 2 4323-8, 12885-1 ####[facility] LABCLIA [id number] [place] [address] [place] Creatinine [Mass/Vol] 0.69 mg/dL Normal 0.58-0.96 [facility] Comment on above: Order Comment: Speci men Type: BLOOD SPECIMENOrdering Facility: [facility] Address: [address] [place] [address] Performed By: #### 2 4323-8, 15850-5 ####[facility] LABIA [id number] [place] [address] [place] Creatinine and Glomerular filtration rate.predicted panel (S/P/Bld) 105 mL/min/1.73m??? Normal >=60 [facility] Comment on above: Order Comment: Cassi osorio Type: BLOOD SPECIMENOrdering Facility: [facility] Address: [address] [place] [address] Result Comment: Tammy mated Glomerular Filtration Rate (eGFR) is calculated using the 2020 CKD-EPI creatinine equation. This equation utilizes serum creatinine, sex, and age as parameters. The creatinine assay has traceable calibration to isotope dilution-mass spectrometry. Refer to KDIGO guidelines for clinical interpretation. In patients with unstable renal function, e.g. those with acute kidney injury, the eGFR may not accurately reflect actual GFR. Performed By: #### 2 4323-8, 09851-8 ####[facility] LABIA [id number] [place] [address] [place] Glucose [Mass/Vol] 84 mg/dL Normal 74-99 [facility] Comment on above: Order Comment: Cassi osorio Type: BLOOD SPECIMENOrdering Facility: [facility] Address: [address] [place] [address] Result Comment: The [place] Diabetes Association (ADA) provides guidance for cutoff values for fasting glucose and random glucose. The ADA defines fasting as no caloric intake for at least 8 hours. Fasting plasma glucose results between 100 to 125 [...] Standards of Medical Care in Diabetes 2016, [place] Diabetes Association. Diabetes Care. 2016.39(Suppl 1). Performed By: #### 2 4323-8, ####[facility] LABCLIA [id number] [address] [address] [place] Potassium [Moles/Vol] 4.4 mmol/L Normal 3.7-5.1 [facility] Comment on above: Order Comment: Speci men Type: BLOOD SPECIMENOrdering Facility: [facility] Address: [address] [place] [address] Performed By: #### 2 432-8, ####[facility] LABCLIA [id number] [place] [id number] [place] Protein [Mass/Vol] 6.9 g/dL Normal 6.3-8.0 [facility] Comment on above: Order Comment: Speci men Type: BLOOD SPECIMENOrdering Facility: [facility] Address: [address] [place] [address] Performed By: #### 2 4328, ####[facility] LABIA [id number] [place] [id number] [place] Sodium [Moles/Vol] 139 mmol/L Normal 136-144 [facility] Comment on above: Order Comment: Speci men Type: BLOOD SPECIMENOrdering Facility: [facility] Address: [address] [place] [address] Performed By: #### 2 4328, ####[facility] LABCLIA [id number] [place] [id number] [place] Urea nitrogen [Mass/Vol] 13 mg/dL Normal 7-21 [facility] Comment on above: Order Comment: Speci men Type: BLOOD SPECIMENOrdering Facility: [facility] Address: [address] [place] [address] Performed By: #### 2 4323-8, 56066-5 ####[facility] LABCLIA [id number] [address] [address] [place] HbA1c (Bld)on 02-01-2024 Average glucose Estimated from glycated hemoglobin (Bld) [Mass/Vol] 91 mg/dL Normal [facility] Comment on above: Order Comment: Speci men Type: BLOOD SPECIMENOrdering Facility: [facility] Address: [address] [place] [address] Result Comment: eAG: (Estimated average glucose) is a calculated value from HgbA1c and is contact center representative of the average blood glucose level in the last 2-3 month period. Performed By: #### 5 5454-3 ####[facility] LABCLIA [id number] [place] [address] [place] HbA1c (Bld) [Mass fraction] 4.8 % Normal 4.3-5.6 [facility] Comment on above: Order Comment: Cassi osorio Type: BLOOD SPECIMENOrdering Facility: [facility] Address: [address] [place] [address] Result Comment: [place] Diabetes Association guidelines indicate that patients with HgbA1c in the range 5.7-6.4% are at increased risk for development of diabetes, and intervention by lifestyle modification may be beneficial. HgbA1c greater or equal to 6.5% is considered diagnostic of diabetes. Performed By: #### 5 5454-3 ####[facility] LABCLIA [id number] [place] [address] [place] Insulin SerPl-aCncon 024 Insulin Qn 8.0 u[IU]/mL Normal 3.0-25.0 [facility] Comment on above: Order Comment: Miladisi men Type: BLOOD SPECIMENOrdering Facility: [facility] Address: [address] [place] [address] Performed By: #### 2 0448-7 ####[facility] LABIA [id number] [place] [address] [place] Lipid 1996 panelon 4 Cholesterol [Mass/Vol] 162 mg/dL Normal <200 [facility] Comment on above: Order Comment: Speci men Type: BLOOD SPECIMENOrdering Facility: [facility] Address: [address] [place] [address] Result Comment: <200 mg/dL, Desirable 200-239 mg/dL, Borderline high >239 mg/dL, High Performed By: #### 2 4323-8, 79304-7 ####[facility] LABCLIA [id number] [place] Cholesterol in HDL [Mass/Vol] 42 mg/dL Normal >39 [facility] Comment on above: Order Comment: Speci men Type: BLOOD SPECIMENOrdering Facility: [facility] Address: [address] [place] [address] Result Comment: 40-5 9 mg/dL, Acceptable >59 mg/dL, High: Negative risk factor for coronary heart disease <40 mg/dL, Low: Positive risk factor for coronary heart disease Performed By: #### 2 4323-8, 68728-4 ####[facility] LABCLIA [id number] [address] [place] Cholesterol in LDL [Mass/Vol] 104 mg/dL High <100 [facility] Comment on above: Order Comment: Speci men Type: BLOOD SPECIMENOrdering Facility: [facility] Address: [address] [place] [address] Result Comment: <100 mg/dL, Optimal 100-129 mg/dL, Near optimal/above optimal 130-159 mg/dL, Borderline high 160-189 mg/dL, High >189 mg/dL, Very high Secondary prevention optimal LDL Cholesterol levels are recommended to be < 70 mg/dL Performed By: #### 2 4323-8, 02215-4 ####[facility] LABCLIA [id number] [address] [place] Cholesterol in LDL/Cholesterol in HDL [Mass ratio] 2.48 {ratio} Normal <2.54 [facility] Comment on above: Order Comment: Speci men Type: BLOOD SPECIMENOrdering Facility: [facility] Address: [address] [place] [address] Result Comment: Refe rence: 1. National Cholesterol Education Program ATP III Guideline At-A-Glance Quick Desk Reference: National Heart, Lung, and Blood [place]. National Institutes of Health. 2001: NIH Publication No. 01-3305. 2. An International Atherosclerosis Society position paper: global recommendations for the management of dyslipidemia: executive summary, Atherosclerosis. 2014: 232(2):410-413. Performed By: #### 2 4323-8, 73501-0 ####[facility] LABCLIA [id number] [place] [address] [place] Cholesterol in VLDL [Mass/Vol] 16 mg/dL Normal <30 [facility] Comment on above: Order Comment: Speci men Type: BLOOD SPECIMENOrdering Facility: [facility] Address: [address] [place] [address] Performed By: #### 2 4323-8, 54923-4 ####[facility] LABCLIA [id number] [place] [address] [place] Cholesterol non HDL [Mass/Vol] 120 mg/dL Normal <130 [facility] Comment on above: Order Comment: Miladisi men Type: BLOOD SPECIMENOrdering Facility: [facility] Address: [address] [place] [address] Result Comment: <130 mg/dL, Optimal 130-159 mg/dL, Near optimal/above optimal 160-189 mg/dL, Borderline high 190-219 mg/dL, High >219 mg/dL, Very high Secondary prevention optimal non HDL Cholesterol levels are recommended to be <100 mg/dL Performed By: #### 2 4323-8, 82498-1 ####[facility] LABCLIA [id number] [place] [address] [place] Cholesterol.total/C holesterol in HDL [Mass ratio] 3.86 {ratio} Normal <5.10 [facility] Comment on above: Order Comment: Speci men Type: BLOOD SPECIMENOrdering Facility: [facility] Address: [address] [place] [address] Performed By: #### 2 4323-8, 64828-1 ####[facility] LABCLIA [id number] [place] [address] [place] FASTING TIME 12 hrs Normal [facility] Comment on above: Order Comment: Speci men Type: BLOOD SPECIMENOrdering Facility: [facility] Address: [address] [place] [address] Performed By: #### 2 4323-8, 48040-5 ####[facility] LABCLIA [id number] [place] [address] [place] Triglyceride [Mass/Vol] 80 mg/dL Normal <150 [facility] Comment on above: Order Comment: Speci men Type: BLOOD SPECIMENOrdering Facility: [facility] Address: [address] [place] [address] Result Comment: <150 mg/dL, Normal 150-199 mg/dL, Borderline high 200-499 mg/dL, High >499 mg/dL, Very high Performed By: #### 2 4323-8, 47321-8 ####[facility] LABCLIA [id number] [address] [place] Hiro 01-27-2024 GL[facility] Telephone (SAM[place]ON) CHIKA GOOD ([id number]) 1970 F Date Time Provider Department 01/27/24 ASIYA DUPONT During your visit today, we recorded the following information about you: Asiya Dupont RN 01/27/2024 9:18 AM Signed Called and spoke to patient regarding her Zepbound. Patient was already instructed to stop the medication 7 days prior to surgery. She is going to get the lab work done prior to surgery that was ordered by her PCP. Patient was informed a P[facility] visit is not needed. HANDP 01/25/2024 Dr Pepe. Asiya SLAUGHTERN RN Resource nurse for the P[facility] Schedulers Allergies As of Date: 01/27/2024 (No Known Allergies) Date Reviewed: 01/25/2024 Reviewed by: Rosalba Ames LPN - Fully Assessed Reason for Visit: Medication Problem [65] Prescriptions as of 01/27/2024 - tirzepatide, weight loss (ZEPBOUND) 12.5 mg/0.5 mL pen injector Inject 12.5 mg subcutaneously one time a week. Patient should start on January 24, 2024. - omeprazole (PRILOSEC) 40 mg capsule Take 1 capsule by mouth once daily. - ondansetron (ZOFRAN) 4 mg tablet Take 1 tablet by mouth every 8 hours as needed for nausea/vomiting for up to 30 doses. - metFORMIN ER (GLUCOPHAGE XR) 500 mg 24 hr tablet Take 2 tablets by mouth daily with dinner. - Norethindrone, Contraceptive, 0.35 mg tablet Take 1 tablet by mouth once daily. - ADELINA 0.0375 mg/24 hr - estradiol (ESTRACE) 0.01 % (0.1 mg/gram) vaginal cream - atorvastatin (LIPITOR) 20 mg tablet Take 1 tablet by mouth daily at bedtime. For cholesterol. - fluticasone-salmeterol (ADVAIR DISKUS) 250-50 mcg/dose inhaler Inhale 1 Puff as instructed two times a day. Rinse and gargle mouth after use with water. - albuterol HFA (VENTOLIN HFA) 90 mcg/actuation inhaler Inhale 2 Puffs as instructed every 4 hours as needed. - CHOLECALCIFEROL, VITAMIN D3, ORAL Take by mouth as directed. Combined with omega 3 - DUPIXENT SYRINGE 300 mg/2 mL injection Inject 300 mg subcutaneously every 2 weeks. Meds Comments as of 12/01/2007: All medications reviewed today/October 10, 2007 [facility] All medications reviewed today/December 01, 2007 Sharon Poe Rn Problem List As Of Date 01/27/2024 Noted Resolved ADVANCED MATERNAL AGE:MULTIPARA[659.63] [O09.52*04/19/2007 04/19/2007 AMA PRIMIGRAVID-ANTEPARTUM [O09.519] 04/19/2007 11/21/2007 Family history of malignant neoplasm of gastroi* Moderate persistent asthma without complication* Allergic rhinitis, seasonal [J30.2] Anxiety [F41.9] 07/07/2012 Depression [F32.A] 07/07/2012 Obesity (BMI 35.0-39.9 without comorbidity) [E6*06/06/2013 Hyperlipidemia, mixed [E78.2] 11/01/2014 LITO (obstructive sleep apnea) [G47.33] 01/22/2015 Abnormal mammogram [R92.8] 05/03/2015 Psoriasis [L40.9] 12/10/2015 GERD without esophagitis [K21.9] 12/10/2015 Upper back pain [M54.9] 03/17/2016 Neck pain [M54.2] 03/17/2016 Chronic tension-type headache, intractable [G44*03/17/2016 Large breasts [N62] 03/17/2016 Encounter for screening for diabetes mellitus [*03/31/2017 Well adult exam [Z00.00] 01/21/2020 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] 01/21/2020 Encounter for routine gynecological examination*01/21/2020 Medication management [Z79.899] 11/01/2022 Vitamin D deficiency [E55.9] 08/29/2023 Encounter for screening mammogram for breast ca*01/03/2024 Encounter Status:Closed by ASIYA DUPONT on 01/27/24 [facility] Telephone (OBGYWM) CHIKA GOOD ([id number]) 1970 F Date Time Provider Department 01/27/24 KAILYN GILL OBGYWCeleste During your visit today, we recorded the following information about you: Raphael Vital MA 01/27/2024 11:16 AM Signed Received PA request for patients increased dose of Zepbound. Submitted and will wait for further response from insurance. AMNA King Deidre, MD 01/27/2024 4:20 PM Signed Raphael Melendez MA 02/02/2024 10:39 AM Signed Closing encounter. See Mychart messages from 01/28. New dose approved. Raphael Vital MA Allergies As of Date: 01/27/2024 (No Known Allergies) Date Reviewed: 01/25/2024 Reviewed by: Rosalba Ames LPN - Fully Assessed Reason for Visit: Insurance Authorization [[id number]] Prescriptions as of 02/02/2024 - tirzepatide, weight loss (ZEPBOUND) 15 mg/0.5 mL pen injector Inject 15 mg subcutaneously one time a week. - omeprazole (PRILOSEC) 40 mg capsule Take 1 capsule by mouth once daily. - ondansetron (ZOFRAN) 4 mg tablet Take 1 tablet by mouth every 8 hours as needed for nausea/vomiting for up to 30 doses. - metFORMIN ER (GLUCOPHAGE XR) 500 mg 24 hr tablet Take 2 tablets by mouth daily with dinner. - Norethindrone, Contraceptive, 0.35 mg tablet Take 1 tablet by mouth once daily. - ADELINA 0.0375 mg/24 hr - estradiol (ESTRACE) 0.01 % (0.1 mg/gram) vaginal cream - atorvastatin (LIPITOR) 20 mg tablet Take 1 tablet by mouth daily at bedtime. For cholesterol. - fluticasone-salmeterol (ADVAIR DISKUS) 250-50 mcg/dose inhaler Inhale 1 Puff as instructed two times a day. Rinse and gargle mouth after use with water. - albuterol HFA (VENTOLIN HFA) 90 mcg/actuation inhaler Inhale 2 Puffs as instructed every 4 hours as needed. - CHOLECALCIFEROL, VITAMIN D3, ORAL Take by mouth as directed. Combined with omega 3 - DUPIXENT SYRINGE 300 mg/2 mL injection Inject 300 mg subcutaneously every 2 weeks. Meds Comments as of 12/01/2007: All medications reviewed today/October 10, 2007 [facility] All medications reviewed today/December 01, 2007 Sharon Poe Rn Problem List As Of Date 01/27/2024 Noted Resolved ADVANCED MATERNAL AGE:MULTIPARA[659.63] [O09.52*04/19/2007 04/19/2007 AMA PRIMIGRAVID-ANTEPARTUM [O09.519] 04/19/2007 11/21/2007 Family history of malignant neoplasm of gastroi* Moderate persistent asthma without complication* Allergic rhinitis, seasonal [J30.2] Anxiety [F41.9] 07/07/2012 Depression [F32.A] 07/07/2012 Obesity (BMI 35.0-39.9 without comorbidity) [E6*06/06/2013 Hyperlipidemia, mixed [E78.2] 11/01/2014 LITO (obstructive sleep apnea) [G47.33] 01/22/2015 Abnormal mammogram [R92.8] 05/03/2015 Psoriasis [L40.9] 12/10/2015 GERD without esophagitis [K21.9] 12/10/2015 Upper back pain [M54.9] 03/17/2016 Neck pain [M54.2] 03/17/2016 Chronic tension-type headache, intractable [G44*03/17/2016 Large breasts [N62] 03/17/2016 Encounter for screening for diabetes mellitus [*03/31/2017 Well adult exam [Z00.00] 01/21/2020 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7 kg 1.6 m Naya Pepe MD 01/25/2024 3:06 PM Signed HISTORY AND PHYSICAL Chika Good 1970 REFERRING PHYSICIAN: Latrice Etienne APRN.* CHIEF COMPLAINT: Hemorrhoids HPI: The patient is a 53 year old female with a complaint of symptomatic hemorrhoids. The patient notes issues with itchiness on her external hemorrhoids. She notes a small nodule on the right posterior aspect just inside the anal verge. She has tried suppositories which she felt worked for a little while but not recently. She noted issues with hemorrhoids approximately 10 years ago and now for the past 4 to 6 months has noted issues with itching and some discomfort. She has a family history of colon cancer. I performed upper and lower endoscopy on February 03, 2022. The patient was found of a 6 mm Polyp which returned as a hyperplastic polyp. I recommended follow-up colonoscopy in 5 years given her family history. Upper endoscopy demonstrated gastritis and mild distal esophagitis. The patient is being seen by me at the request of Latrice Etienne APRN.* my opinion and advice regarding symptomatic hemorrhoids. Has had hemorrhoidal banding twice with no improvement in the symptoms of her external symptomatic hemorrhoid PAST MEDICAL HISTORY Diagnosis Date Abnormal glandular Papanicolaou smear of cervix Abn. Pap smear (cervix) Acute gastritis without mention of hemorrhage Allergic rhinitis, seasonal Anxiety 07/07/2012 Chronic tension-type headache, intractable 03/17/2016 Depression 07/07/2012 Encounter for routine gynecological examination 01/21/[address] 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 Vitamin D deficiency 08/29/2023 Well adult exam 01/21/2020 Last done 10/26/21 PAST SURGICAL HISTORY Procedure Laterality Date ADENOIDECTOMY PRIMARY Adenoidectomy BREAST REDUCTION 09/2016 BX BREAST W/DEVICE 1ST LESION ULTRASOUND GUID Left 05/03/2015 U/S Needle core upper mid left breast DELIVERY ONLY 11/2007 [facility] COLONOSCOPY FLX DX W/COLLJ SPEC WHEN PFRMD 2003 Colonoscopy COLONOSCOPY FLX DX W/COLLJ SPEC WHEN PFRMD 08/21/2008 Colonoscopy COLONOSCOPY FLX DX W/COLLJ SPEC WHEN PFRMD 01/14/2015 COLONOSCOPY FLX DX W/COLLJ SPEC WHEN PFRMD 02/04/2020 Colonoscopy- repeat 5 year CONIZATION CERVIX W/WO DANDC RPR ELTRD EXC 1994 LEEP-Cervix DANDC, DIAG AND/OR THERAPEUTIC 12/2021 EGD 1992 REMOVAL OF FOREIGN BODY EGD TRANSORAL BIOPSY SINGLE/MULTIPLE 06/12/2008 ESOPHAGOGASTRODUODENOSCOPY TRANSORAL DIAGNOSTIC 05/16/2017 EGD ESOPHAGOGASTRODUODENOSCOPY TRANSORAL DIAGNOSTIC 02/04/2020 EGD- repeat in 1 year ESOPHAGOSCOPY FLEX BALLOON DILAT <30 MM DIAM 06/12/2008 SEPTOPLASTY 08/29/2017 Dr. Manny Sexton-nasal airway obstruction. deviated septum, inferior turbinate hypertrophy TONSILLECTOMY PRIMARY/SECONDARY Tonsillectomy Current Outpatient Medications Medication Sig tirzepatide, weight loss (ZEPBOUND) 12.5 mg/0.5 mL pen injector Inject 12.5 mg subcutaneously one time a week. Patient should start on January 24, 2024. omeprazole (PRILOSEC) 40 mg capsule Take 1 capsule by mouth once daily. ondansetron (ZOFRAN) 4 mg tablet Take 1 tablet by mouth every 8 hours as needed for nausea/vomiting for up to 30 doses. metFORMIN ER (GLUCOPHAGE XR) 500 mg 24 hr tablet Take 2 tablets by mouth daily with dinner. Norethindrone, Contraceptive, 0.35 mg tablet Take 1 tablet by mouth once daily. ADELINA 0.0375 mg/24 hr estradiol (ESTRACE) 0.01 % (0.1 mg/gram) vaginal cream atorvastatin (LIPITOR) 20 mg tablet Take 1 tablet by mouth daily at bedtime. For cholesterol. fluticasone-salmeterol (ADVAIR DISKUS) 250-50 mcg/dose inhaler Inhale 1 Puff as instructed two times a day. Rinse and gargle mouth after use with water. albuterol HFA (VENTOLIN HFA) 90 mcg/actuation inhaler Inhale 2 Puffs as instructed every 4 hours as needed. CHOLECALCIFEROL, VITAMIN D3, ORAL Take by mouth as directed. Combined with omega 3 DUPIXENT SYRINGE 300 mg/2 mL injection Inject 300 mg subcutaneously every 2 weeks. No current facility-administered medications for this visit. ALLERGIES: Patient has no known allergies. PERSONAL HISTORY: Social History Tobacco Use Smoking status: Former Current pack (more content not included)... Normal [facility] 01-25-2024 [facility] Telephone ([place]) CHIKA GOOD ([id number]) 1970 F Date Time Provider Department 01/25/24 NAYA PEPE [facility] During your visit today, we recorded the following information about you: Michael Cheng 01/25/2024 12:05 PM Signed 02-21-2024 hemorrhoidectomy Tam Allergies As of Date: 01/25/2024 (No Known Allergies) Date Reviewed: 01/25/2024 Reviewed by: Rosalba Ames LPN - Fully Assessed Reason for Visit: Patient Update [1234] hemorrhoidectomy [Other] Prescriptions as of 06/12/2024 - sodium picosulfate-magnesium oxide-citric acid (CLENPIQ) 10 mg-3.5 gram- 12 gram/175 mL oral solution Take 175 mL by mouth as directed for 2 doses. - tirzepatide, weight loss (ZEPBOUND) 10 mg/0.5 mL pen injector Inject 10 mg subcutaneously one time a week. - omeprazole (PRILOSEC) 40 mg capsule Take 1 capsule by mouth once daily. - Norethindrone, Contraceptive, 0.35 mg tablet Take 1 tablet by mouth once daily. - ADELINA 0.0375 mg/24 hr - estradiol (ESTRACE) 0.01 % (0.1 mg/gram) vaginal cream - atorvastatin (LIPITOR) 20 mg tablet Take 1 tablet by mouth daily at bedtime. For cholesterol. - fluticasone-salmeterol (ADVAIR DISKUS) 250-50 mcg/dose inhaler Inhale 1 Puff as instructed two times a day. Rinse and gargle mouth after use with water. - albuterol HFA (VENTOLIN HFA) 90 mcg/actuation inhaler Inhale 2 Puffs as instructed every 4 hours as needed. - CHOLECALCIFEROL, VITAMIN D3, ORAL Take by mouth as directed. Combined with omega 3 Meds Comments as of 12/01/2007: All medications reviewed today/October 10, 2007 [facility] All medications reviewed today/December 01, 2007 Sharon Poe Rn Problem List As Of Date 01/25/2024 Noted Resolved ADVANCED MATERNAL AGE:MULTIPARA[659.63] [O09.52*04/19/2007 04/19/2007 AMA PRIMIGRAVID-ANTEPARTUM [O09.519] 04/19/2007 11/21/2007 Family history of malignant neoplasm of gastroi* Moderate persistent asthma without complication* Allergic rhinitis, seasonal [J30.2] Anxiety [F41.9] 07/07/2012 Depression [F32.A] 07/07/2012 Obesity (BMI 35.0-39.9 without comorbidity) [E6*06/06/2013 Hyperlipidemia, mixed [E78.2] 11/01/2014 LITO (obstructive sleep apnea) [G47.33] 01/22/2015 Abnormal mammogram [R92.8] 05/03/2015 Psoriasis [L40.9] 12/10/2015 GERD without esophagitis [K21.9] 12/10/2015 Upper back pain [M54.9] 03/17/2016 Neck pain [M54.2] 03/17/2016 Chronic tension-type headache, intractable [G44*03/17/2016 Large breasts [N62] 03/17/2016 Encounter for screening for diabetes mellitus [*03/31/2017 Well adult exam [Z00.00] 01/21/2020 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] 01/21/2020 Encounter for routine gynecological examination*01/21/2020 Medication management [Z79.899] 11/01/2022 Vitamin D deficiency [E55.9] 08/29/2023 Encounter for screening mammogram for breast ca*01/03/2024 Encounter Status:Closed by MICHAEL CHENG on 06/12/24 Normal [facility] Hiro 01-17-2024 [facility] Telephone (VIVEKWS) BALDEMARCHIKA ([id number]) 1970 F Date Time Provider Department 01/17/24 ABBEY SMITH During your visit today, we recorded the following information about you: Rylie Hardy LPN 01/17/2024 1:34 PM Signed ----- Message from Abbey Smith PA-C sent at 01/17/2024 12:18 PM EST ----- Normal mammogram. Repeat in 1 year. Rylie Hardy LPN 01/17/2024 1:36 PM Signed Patient notified of results and provider's instructions. Patient verbalizes understanding. Rylie Hardy LPN Allergies As of Date: 01/17/2024 (No Known Allergies) Date Reviewed: 01/03/2024 Reviewed by: Clark Javed MD - Fully Assessed Reason for Visit: Results [95] Prescriptions as of 01/17/2024 - tirzepatide, weight loss (ZEPBOUND) 12.5 mg/0.5 mL pen injector Inject 12.5 mg subcutaneously one time a week. Patient should start on January 24, 2024. - omeprazole (PRILOSEC) 40 mg capsule Take 1 capsule by mouth once daily. - ondansetron (ZOFRAN) 4 mg tablet Take 1 tablet by mouth every 8 hours as needed for nausea/vomiting for up to 30 doses. - metFORMIN ER (GLUCOPHAGE XR) 500 mg 24 hr tablet Take 2 tablets by mouth daily with dinner. - Norethindrone, Contraceptive, 0.35 mg tablet Take 1 tablet by mouth once daily. - ADELINA 0.0375 mg/24 hr - estradiol (ESTRACE) 0.01 % (0.1 mg/gram) vaginal cream - atorvastatin (LIPITOR) 20 mg tablet Take 1 tablet by mouth daily at bedtime. For cholesterol. - fluticasone-salmeterol (ADVAIR DISKUS) 250-50 mcg/dose inhaler Inhale 1 Puff as instructed two times a day. Rinse and gargle mouth after use with water. - albuterol HFA (VENTOLIN HFA) 90 mcg/actuation inhaler Inhale 2 Puffs as instructed every 4 hours as needed. - CHOLECALCIFEROL, VITAMIN D3, ORAL Take by mouth as directed. Combined with omega 3 - DUPIXENT SYRINGE 300 mg/2 mL injection Inject 300 mg subcutaneously every 2 weeks. Meds Comments as of 12/01/2007: All medications reviewed today/October 10, 2007 [employer] [facility] All medications reviewed today/December 01, 2007 Sharon Poe Rn Problem List As Of Date 01/17/2024 Noted Resolved ADVANCED MATERNAL AGE:MULTIPARA[659.63] [O09.52*04/19/2007 04/19/2007 AMA PRIMIGRAVID-ANTEPARTUM [O09.519] 04/19/2007 11/21/2007 Family history of malignant neoplasm of gastroi* Moderate persistent asthma without complication* Allergic rhinitis, seasonal [J30.2] Anxiety [F41.9] 07/07/2012 Depression [F32.A] 07/07/2012 Obesity (BMI 35.0-39.9 without comorbidity) [E6*06/06/2013 Hyperlipidemia, mixed [E78.2] 11/01/2014 LITO (obstructive sleep apnea) [G47.33] 01/22/2015 Abnormal mammogram [R92.8] 05/03/2015 Psoriasis [L40.9] 12/10/2015 GERD without esophagitis [K21.9] 12/10/2015 Upper back pain [M54.9] 03/17/2016 Neck pain [M54.2] 03/17/2016 Chronic tension-type headache, intractable [G44*03/17/2016 Large breasts [N62] 03/17/2016 Encounter for screening for diabetes mellitus [*03/31/2017 Well adult exam [Z00.00] 01/21/2020 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 SCREENING / PROCEDURE REASON: Encounter for screening mammogram for breast cancer * * * * Physician Interpretation * * * * RESULT: [place] [address] HISTORY: Patient is 53 years old and is seen for screening and is asymptomatic in both breasts. Patient states no personal history of breast cancer. Patient states no personal history of other cancers. COMPARISON STUDIES: The present examination has been compared to prior imaging studies dated 10/06/2018 (mammogram), 10/10/2018 (mammogram) and 07/03/2019 (mammogram). MAMMOGRAM TECHNIQUE: The study was acquired using full field digital technology and interpreted from soft copy. Digital Breast Tomosynthesis (DBT) images were obtained and used to assist in the interpretation of this examination. Computer-aided detection was utilized by the radiologist in the interpretation of this examination. MAMMOGRAM FINDINGS: The breasts are heterogeneously dense, which may obscure small masses. No suspicious masses, calcifications or other abnormalities are seen in either breast. There are no significant changes from the prior study. IMPRESSION: There is no mammographic evidence of malignancy in either breast. Routine screening mammogram is recommended. Annual mammogram will be due in 1 year. BI-RADS Category 1: Negative RISK: Based on the Tyrer-Cuzick (TC) risk assessment model, this patient has a 29.8% lifetime risk of developing breast cancer, meaning they are at high risk for developing breast cancer. However, this is only an estimate based on available history provided on the patient's questionnaire. Because patients with a lifetime risk of 20% or greater may benefit from additional supplemental screening, we encourage a full breast clinical evaluation and comprehensive breast cancer risk assessment to guide further decision making. For more information regarding the management of high-risk patients, the following is a link to the [facility] care path [email or web address]. Additionally, a referral to the [facility] is also appropriate. Interpreting Radiologist: Lazara King M.D. Electronically signed on: 01/17/2024 Telemetry Rn: [email or web address] Transcribe Date/Time: Jan 16 2024 2:06P Dictated by: LAZARA KING MD This examination was interpreted and the report reviewed and electronically signed by: LAZARA KING MD on Jan 17 2024 11:21AM EST [id number] Normal [facility] CNOVon 01-03-2024 CNOV Office Visit (FAMPWS ) CHIKA GOOD ([id number]) 1970 F Date Time Provider Department 01/03/24 1:00 PM CLARK JAVED FAMPWS During your visit today, we recorded the following information about you: Pulse Respiration Blood pressure Weight 80/minute 16/minute 108/78 87.5 kg Height Last Period 1.6 m 12/18/23 Clark Javed MD 01/03/2024 3:26 PM Signed Chief Complaint Patient presents with: Physical HPI Chikadawn Good is a 53 year old female who presents here today for Physical. Patient with hx of hyperlipidemia, LITO, Asthma, GERD, allergies, depression, anxiety, obesity and those as below. Patient has been doing well. No new issues or concerns. Past medical history, appointments, medications, allergies reviewed. Previous Medical History PAST MEDICAL HISTORY Diagnosis Date Abnormal glandular Papanicolaou smear of cervix Abn. Pap smear (cervix) Acute gastritis without mention of hemorrhage Allergic rhinitis, seasonal Anxiety 07/07/2012 Chronic tension-type headache, intractable 03/17/2016 Depression 07/07/2012 Encounter for routine gynecological examination 01/21/[address] 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 Well adult exam 01/21/2020 Last done 10/26/21 Previous Surgical History PAST SURGICAL HISTORY Procedure Laterality Date ADENOIDECTOMY PRIMARY Adenoidectomy BREAST REDUCTION 09/2016 BX BREAST W/DEVICE 1ST LESION ULTRASOUND GUID Left 05/03/2015 U/S Needle core upper mid left breast DELIVERY ONLY 11/2007 [facility] COLONOSCOPY FLX DX W/COLLJ SPEC WHEN PFRMD 2003 Colonoscopy COLONOSCOPY FLX DX W/COLLJ SPEC WHEN PFRMD 08/21/2008 Colonoscopy COLONOSCOPY FLX DX W/COLLJ SPEC WHEN PFRMD 01/14/2015 COLONOSCOPY FLX DX W/COLLJ SPEC WHEN PFRMD 02/04/2020 Colonoscopy- repeat 5 year CONIZATION CERVIX W/WO DANDC RPR ELTRD EXC 1994 LEEP-Cervix DANDC, DIAG AND/OR THERAPEUTIC 12/2021 EGD 1992 REMOVAL OF FOREIGN BODY EGD TRANSORAL BIOPSY SINGLE/MULTIPLE 06/12/2008 ESOPHAGOGASTRODUODENOSCOPY TRANSORAL DIAGNOSTIC 05/16/2017 EGD ESOPHAGOGASTRODUODENOSCOPY TRANSORAL DIAGNOSTIC 02/04/2020 EGD- repeat in 1 year ESOPHAGOSCOPY FLEX BALLOON DILAT <30 MM DIAM 06/12/2008 SEPTOPLASTY 08/29/2017 Dr. Manny Sexton-nasal airway obstruction. deviated septum, inferior turbinate hypertrophy TONSILLECTOMY PRIMARY/SECONDARY Tonsillectomy Family History FAMILY HISTORY Problem Relation Age of Onset Asthma Mother Hypertension Father Colon Cancer Father Colon polyps Colon Cancer Maternal Grandfather Colon Cancer Paternal Grandfather Blood Disease Sister Asthma Brother Patient Allergies ALLERGIES No Known Allergies Current Medications Current Outpatient Medications on File Prior to Visit Medication Sig omeprazole (PRILOSEC) 40 mg capsule Take 1 capsule by mouth once daily. ondansetron (ZOFRAN) 4 mg tablet Take 1 tablet by mouth every 8 hours as needed for nausea/vomiting for up to 30 doses. metFORMIN ER (GLUCOPHAGE XR) 500 mg 24 hr tablet Take 2 tablets by mouth daily with dinner. Norethindrone, Contraceptive, 0.35 mg tablet Take 1 tablet by mouth once daily. ADELINA 0.0375 mg/24 hr estradiol (ESTRACE) 0.01 % (0.1 mg/gram) vaginal cream atorvastatin (LIPITOR) 20 mg tablet Take 1 tablet by mouth daily at bedtime. For cholesterol. fluticasone-salmeterol (ADVAIR DISKUS) 250-50 mcg/dose inhaler Inhale 1 Puff as instructed two times a day. Rinse and gargle mouth after use with water. albuterol HFA (VENTOLIN HFA) 90 mcg/actuation inhaler Inhale 2 Puffs as instructed every 4 hours as needed. CHOLECALCIFEROL, VITAMIN D3, ORAL Take by mouth as directed. Combined with omega 3 DUPIXENT SYRINGE 300 mg/2 mL injection Inject 300 mg subcutaneously every 2 weeks. No current facility-administered medications on file prior to visit. Social History Social History Tobacco Use Smoking status: Former Current packs/day: 0.00 Types: Cigarettes Start date: 07/13/1991 Quit date: 07/12/2006 Years since quittin.4 Smokeless tobacco: Never Tobacco comments: SOCIAL SMOKER IN PAST Vaping Use Vaping status: Never Used Substance Use Topics Alcohol use: Yes Comment: rare,NOT WHILE Drug use: No Review of Symptoms REVIEW OF SYSTEMS GENERAL: No unintentional weight loss, malaise or fevers HEENT: Negative for frequent or significant headaches, No changes in hearing or vision, no nose bleeds or other nasal problems NECK: Negative for lumps, goiter, pain and significant neck swelling RESPIRATORY: Negative for cough, hemoptysis, wheezing, COPD, dyspnea or shortness of breath (more content not included)... Normal [facility] CNOV Office Visit (OBGYWM ) CHIKA GOOD ([id number]) 1970 F Date Time Provider Department 01/03/24 9:50 AM KAILYN GILL During your visit today, we recorded the following information about you: Pulse Blood pressure Weight Last Period 86/minute 112/66 87.1 kg 12/18/23 Kailyn Gill MD 01/03/2024 10:44 AM Signed Some documentation from previous visit of 10/20/23 was copied and pasted, documentation has been reviewed and edited as necessary for today's visit. Patient Summary: Chika is a 53 year old Female who presents for follow-up evaluation of obesity/weight management to treat and prevent related co-morbidities. In our previous visits we have discussed lifestyle intervention including a nutrition recommendations and physical activity optimization. Her last office visit was 11 weeks ago. Assessment/plan from last visit: - discussed doing two protein shakes and adding more whole foods with lunch and then regular dinner to add more protein to day - reviewed MINIMUM protein 90g/day - continue vit D supplement - continue with Whole foods, Low carb, High protein -Continue prilosec for GERD -Continue Lipitor for Hypercholesteremia Zepbound 10mg ordered - will stay at this dose for now until symptoms improve. - sleep medicine follow up completed - cpap mask - Will recheck labs next visit- insulin and CMP - resistance training reviewed, - add more protein for breakfast reviewed, continue tracking food. Interval History PT specifies the following items as new or significant updates since the last appointment: - some nausea at times but no vomiting -walking 3 x week- just got weighted vest. Feeling stronger, not winded when doing daily activities or going up stairs - very happy with how she is feeling, hasn't felt this good in years - not using CPAP- said snoring is significantly less -did not have meds for 5 weeks due to shortage and then had surgery for stones -happy that she is creating new lifestyle and habits Weight loss since last vist: 6 lb Total weight lost: 42 lb - Last Wt 01/03/24 192 lb 10/20/23 198 lb 08/30/23 215 lb 07/12/23 224 lb STARTING WEIGHT 05/30/23 234 lb (106.1 kg) 5% weight loss = 218 lbs, 10% weight loss = 206 lbs Anti-obesity medications: Tirzepatide (Zepbound). Benefit:decreased food noise , decreased appetite, Adverse effects: none Anti-obesity medications: Metformin. Benefit:elevated insulin (86) Adverse effects: none Weight promoting medications: Inhaled corticosteroid Previous Diet (initial appointment): Wakes up: 5:30am- black coffee - drinks until lunch time Breakfast- 9am- Della cottage cheese pineapple and harley seeds, pea protein powder Lunch- seed 70cal nhi killer- Rotisserie chicken, garlic coffee Edamame, grapes (10) Dinner- Bonza chickpea pasta, chicken pasta, pepper, with veggies or schezwan chicken with white rice. Red cabbage with rice vinegar Snacks- sometimes chips, beef stick, cheese, Diet/Nutrition overview: Fluids: water (80-120oz) , black coffee 6cups Quality of diet: 24hr recall suggests in between diet. Characterization of diet:Structured. Sleeve Setter Safety Stitch of impaired eating habits:excessive hunger, emotion, and stress Eating Disorder no Preferred foods: Cravings: salty Nutrition Now: about the same B- Oikos triple zero - sometimes eggs with cottage cheese or protein shake L- cheese, or beef stick. salad, rotissere chicken, primal kitchen avocado dressing or protein Shake ( owyn 32g) , nuts D- meat and vegetable (broccoli), Dietary changes: Eating 3 meals a day, including breakfast Increasing water intake Controlling portions Identify hunger and satiety cues Increasing protein Reducing carbohydrates Current Barriers: inadequate sleep duration/QUALITY Exercise: 3-4 days per week, spin, core and more, weights, Stress: stable Sleep: stable but up multiple times 8 hours. LITO YES ; CPAP yes - NOT USING (01/02) CrCl cannot be calculated (Patient's most recent lab result is older than the maximum 180 days allowed.). PAST MEDICAL HISTORY Diagnosis Date Abnormal glandular Papanicolaou smear of cervix Abn. Pap smear (cervix) Acute gastritis without mention of hemorrhage Allergic rhinitis, seasonal Anxiety 07/07/2012 Chronic tension-type headache, intractable 03/17/2016 Depression 07/07/2012 Encounter for routine gynecological examination 01/21/[address] 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 sekou Lantigua adult exam 01/21/2020 Last done 10/26/21 Current Outpatient Medications Medication Sig Dispense Refill (more content not included)... Normal [facility] CNOVon 12-28-2023 CNOV Office Visit (GENSWS ) CHIKA GOOD ([id number]) 1970 F Date Time Provider Department 12/28/23 3:30 PM NAYA PEPE GENSWS During your visit today, we recorded the following information about you: Ofelia Allen RN 12/29/2023 6:49 AM Signed UNIVERSAL PROTOCOL / SAFETY CHECKLIST Procedure to be Performed: Anoscopy and hemorrhoidal banding Sign In: A Moment of CARE was completed. Personnel directly involved with the procedure wore the appropriate PPE (Personal Protective Equipment). Special equipment: anoscopy and hemorrhoidal banding equipment. Patient/Surrogate Stated/Verified: PATIENT VERIFIED(optional for EMERGENT procedures): Patient name, Date of , Relevant allergies, and The intended procedure Time Out Communication: Intended patient and procedure match the source documents. Consent documented and matches the intended procedure. No relevant labs, photos, and/or imaging studies were applicable for review. No correct side/site applicable for marking and visibility. No medications required for procedure. No fire risk assessment and interventions applicable. Implant(s) inserted: Correct implant(s) confirmed including size and side., Expiration date(s) reviewed., and hemorrhoid bands. Sign Out: SIGN OUT (optional for EMERGENT procedures): No specimen collected. No instruments, equipment or retained foreign bodies applicable. Post-procedure follow-up management communicated and Plan of Care Visit completed when applicable. KWAME Evans Rhonda, RN 12/28/2023 4:23 PM Signed The following instructions are important for you related to your office visit today with the [facility] Surgeons. Instructions After HEMORRHOIDAL BANDING If you note worsening anal pain, fever or significant anal redness or swellingcontact the office immediately. Minor bleeding from the anus is common. If there is continued bleeding, you should contact our office immediately. The banded hemorrhoidal complex will slough off in 4-5 days on average. Bleeding or some tissue with a black rubber band may be seen in the toilet bowl. You may require multiple bandings to correct your internal hemorrhoidal symptoms. Please make an appointment to return to our office in 4-6 weeks for possible repeat banding if your symptoms have not resolved. If you note any additional difficulties, questions, or concerns, you should contact our office immediately @ [phone] and ask to be transferred to the General Surgery department. Naya Pepe MD 12/29/2023 6:49 AM Signed FOLLOW UP VISIT - HEMORRHOID BANDING NAME: Chika Good [facility] NO.: [id number] DATE OF SERVICE: 11/25/2023 : 1970 REFERRING PHYSICIAN: Clark Javed MD Chika is a patient I am following for symptomatic internal hemorrhoids. The patient returns for hemorrhoidal banding. They have not take aspirin or other blood thinners for over 7 days. VITALS: Last menstrual period 08/23/2023. There is no height or weight on file to calculate BMI. On examination, the patient has a mixed external interal hemorrhoidal in the right anterior position. PROCEDURE: HEMORRHOIDAL BANDING The risks, benefits and anticipated outcomes of the procedure, the risks and benefits of the alternatives to the procedure, and the roles and tasks of the personnel to be involved, were discussed with the patient, and the patient consents to the procedure and agrees to proceed. After consent was obtained and the site, person, and procedure verified, the patient was positioned. A digital rectal exam was performed demonstrating internal hemorrhoids without other abnormalities. An anoscope was introduced demonstrating symptomatic internal hemorrhoid. The hemorrhoidal complex in the right anterior component was grasped with an forceps without causing discomfort to the patient. A single band was deployed over the complex. The patient remained asymptomatic. The anoscope was removed. The patient tolerated the procedure well. Assessment IMPRESSION: Status post interal hemorrhoidal banding PLAN: If the patient notes any problems or pain, they should contact me immediately. The patient was informed that- A small amount of bleeding is common when the hemorrhoid sloughs at 3-5 days. Do not that aspirin for the next week. If you have significant bleeding or other problems, contact our office. While her symptoms are more related to the external hemorrhoidal component which seems to be more irritated clinically this does not seem to Shunk much to me. I discussed with her that we can continue to try banding to see if this caused the external puncturing or if this is not successful would consider single quadrant hemorrhoidectomy. Diagnoses: (K64.9) Hemorrhoids, unspecified hemorrhoid type (primary encounte (more content not included)... Normal [facility] Bedside Glucoseon 12-01-2023 FINGERSTICK GLU 90 mg/dL Normal 74-106 [facility] Comment on above: Result Comment: SOBIA CHOW OF PATIENT CARE PER NURSING PROTOCOL Performed By: #### L 501.080 #### [facility] [address] [place], [address] Discharge Instructionon 11-12 Discharge Instruction [facility] Medical Records Department [address] [place] [address] Instructions for Home/Discharge Instructions 12/01/23 1047 MR#: [id number] Acct: [id number] Name: CHIKA GOOD Rep #: [id number] : 1970 53 From: Jyotsna Mcwilliams MD PCP: Dr. Clark Javed MD [place] [facility] [place] Diet Discharge Diet: No restrictions Activity Discharge Activity: Return to Normal Activity May resume sexual activity in: No Restrictions Dressing / Incision Call your doctor if you observe: Fever of 101 or Higher, Inability to urinate and Inability to have a bowel movement Follow Up Care Please Follow Up With: Jyotsna Mcwilliams MD When: In the office with a KUB in 2 to 3 weeks Test Results: Test results from this visit will be discussed in further detail at your follow-up appointment, if applicable. Discharge Plan Admission Attending Provider: Jyotsna Mcwilliams Primary Care Provider: Clark Javed Instructions Print Language: Kosovan Discharge Orders/Prescriptions Prescriptions: New oxycodone-acetaminophen [Percocet] 5-325 mg tablet 1 tab PO Q8H PRN (Reason: pain) 3 Days Qty: 10 0RF cephalexin 500 mg capsule 500 mg PO Q12 3 Days Qty: 6 0RF ondansetron 4 mg tablet,disintegrating 4 mg PO Q8H PRN (Reason: nausea and vomiting) Qty: 10 0RF Continued fluticasone propion-salmeterol [Advair Diskus] 250-50 mcg/dose blister with device 1 inh INHALATION DAILY albuterol sulfate [ProAir HFA] 90 mcg/actuation HFA aerosol inhaler 1 puff INHALATION Q6H PRN (Reason: shortness of breath or wheezing) Dupixent Pen 300 mg/2 mL pen injector 300 mg SC .COMPLEX Rx Instructions: 300 mg subcut once every 15 days; atorvastatin [Lipitor] 10 mg tablet 10 mg PO DAILY psyllium husk [Daily Fiber] 0.4 gram capsule 0.4 g PO DAILY PRN (Reason: constipation) estradiol [Adelina] 0.0375 mg/24 hr patch semiweekly 1 patch transdermal .EVERY 3 DAYS progesterone micronized 100 mg capsule 100 mg PO QHS omeprazole 40 mg capsule,delayed release(DR/EC) 40 mg PO QHS metformin 500 mg tablet extended release 24 hr 1,000 mg PO QPM Zepbound 10 mg/0.5 mL pen injector 10 mg subcut STEELE cephalexin 500 mg capsule 500 mg PO Q12 3 Days Qty: 6 0RF naproxen [Naprosyn] 500 mg tablet 500 mg PO BID PRN (Reason: pain) Qty: 20 0RF Referrals / Follow Up: Clark Javed MD [Primary Care Provider] - Disposition Disposition (needs filled in before D/C Order can be placed): Home, Self Care 12/01/23 1052 Jyotsna Mcwilliams MD CC: Dr. Clark Javed MD Signed [facility] MR/POSTOP.[facility] 12-01-2023 MR/POSTOP.[facility] Medical Records Department [address] [place] [address] Anesthesia Postop Eval I 12/01/23 1221 MR#: [id number] Acct: [id number] Name: CHIKA GOOD Rep #: [id number] : 1970 53 From: Shelbie Hernandez [employer] [facility] UTILITY WORKER PCP: Dr. Clark Javed MD Status:REG SDC Y Race: C Location: [place] [address] Anesthesia: Postop Eval I Current Vital Signs Temperature: 97.1 F Pulse Rate: 84 Blood Pressure: 112/66 Respiratory Rate: 18 Pulse Ox: 93 Oxygen Delivery Method: Room Air Assessment Airway patent: Yes Spontaneous unlabored respirations: Yes Mental status: Awake and Calm nausea: No Vomiting: No Anesthesia Complication: No Fluid Hydration Crystalloid volume administer (ml): 500 Total IV fluid infused: 500 Progress Note Anesthesia document: Postop Eval 1 completed: Yes 12/01/23 1222 Date ____ Shelbie Hernandez FOOD SERVICE UTILITY WORKER Cosigner Signature: Date ____ CC: Signed Normal [facility] MR/[id number] 12-01-2023 [facility] Medical Records Department [address] [place] [address] Anesthesia Postop Eval II 12/01/23 1315 MR#: [id number] Acct: [id number] Name: CHIKA GOOD Rep #: [id number] : 1970 53 From: Leighton Mora MD PCP: Dr. Clark Javed MD Status:REG ARC Y Race: C Location: [place] [address] Anesthesia Postop Eval I Sum Postop Eval Completion status Anesthesia document: Postop Eval 1 completed: Yes Anesthesia Postop Eval I Summary Anesthesia Postop Eval I Summary: Anesthesia Postop Eval I: Assessment Summary Airway patent Yes 12/01/23 12:22 FOOD SERVICE UTILITY WORKER.SCHR Spontaneous unlabored Yes 12/01/23 12:22 FOOD SERVICE UTILITY WORKER.SCHR respirations Mental status Awake,Calm 12/01/23 12:22 FOOD SERVICE UTILITY WORKER.SCHR nausea No 12/01/23 12:22 FOOD SERVICE UTILITY WORKER.SCHR Vomiting No 12/01/23 12:22 FOOD SERVICE UTILITY WORKER.SCHR Anesthesia Postop Eval I: Fluid Summary Crystalloid volume administer 500 12/01/23 12:22 FOOD SERVICE UTILITY WORKER.SCHR (ml) Colloids volume administered ( ml) Blood Product volume administered (ml) Total IV fluid infused 500 12/01/23 12:22 FOOD SERVICE UTILITY WORKER.SCHR Anesthesia Postop Eval I: Summary Notes Anesthesia Complication No 12/01/23 12:22 FOOD SERVICE UTILITY WORKER.SCHR Anesthesia Complication Comment: Post-operative progress note Anesthesia: Postop Eval II Evaluation Mental status: Awake Pain Level: 0 nausea: No Vomiting: No 12/01/23 1315 Date ____ Leighton Mora MD Cosigner Signature: Date ____ CC: Signed Normal [facility] Operative Reporton 4 Operative Report [facility] Medical Records Department [address] [place] [address] Operative Report 12/01/23 1052 MR#: [id number] Acct: [id number] Name: CHIKA GOOD Rep #: [id number] : 1970 53 From: Jyotsna Mcwilliams MD PCP: Dr. Clark Javed MD Status:[facility] Location: [place] [address] Report of Operation Date of Procedure: 12/01/23 Pre-Operative Diagnosis: Right renal stones Post-Operative Diagnosis: Same Surgery/Procedure Performed:: Right renal extracorporal shockwave lithotripsy Surgeon: Jyotsna Mcwilliams Type of Anesthesia: General Specimen's removed: None Drains: None Description of Procedure: The patient is a 53-year-old female with bilateral renal stones who now presents for definitive intervention for the right side. Informed consent was obtained. The patient was taken to the operating room and placed on the operating room table. Anesthesia monitored the head, neck, airway, IV access and vital signs throughout the case. Once anesthesia was appropriately administered, she was aligned with the lithotripter and her stones were visualized. 3000 shocks were applied to the stones that appeared to be well fragmented at the conclusion of the case. She was then awakened and taken to the recovery room in good condition. There were no complications during this procedure. Grafts/Implants Used: None Complications None Admit VTE Documentation VTE Present on Admission: Yes VTE Mechan Device Prophylaxis: SCD's VTE Pharm Prophylaxis ordered?: No Reason prophylaxis not ordered:: Treatment Not Indicated 12/01/23 1225 Cosigner Signature (if applicable): CC: Dr. Jyotsna Mcwilliams MD; Dr. Clark Javed MD Signed Normal [facility] ,Urineon 12-01-2023 Beta HCG ( test) Ql (U) Negative Normal [facility] Comment on above: Result Comment: Very dilute urine specimens, as indicated by a low specific gravity, may not contain contact center representative levels of hCG. If is still suspected, a first morning urine specimen should be collected 48 hours later and tested. Performed By: #### L 400.7600 #### [facility] Laboratory [facility] [place], [address] CNOVon 11-25-2023 CNOV Office Visit (GENSWS ) CHIKA GOOD ([id number]) 1970 F Date Time Provider Department 11/25/23 3:30 PM NAYA PEPE GENSWS During your visit today, we recorded the following information about you: Temperature Pulse Blood pressure Weight 96.9 degrees 101/minute 118/74 90.5 kg Height 1.6 m Tete Covington, KWAME 11/25/2023 4:20 PM Signed The following instructions are important for you related to your office visit today with the [facility] General Surgeons. Instructions After HEMORRHODIAL BANDING If you note worsening anal pain, fever or significant anal redness or swellingcontact the office immediately. Minor bleeding from the anus is common. If there is continued bleeding, you should contact our office immediately. The banded hemorrhoidal complex will slough off in 4-5 days on average. Bleeding or some tissue with a white rubber band may be seen in the toilet bowl. You may require multiple bandings to correct your internal hemorrhoidal symptoms. If you note any additional difficulties, questions, or concerns, you should contact our office immediately @ [phone] and ask to be transferred to the General Surgery department. Tete Covington RN 11/25/2023 4:20 PM Signed UNIVERSAL PROTOCOL / SAFETY CHECKLIST Procedure to be Performed: Anoscopy and hemorrhoidal banding Sign In: A Moment of CARE was completed. Personnel directly involved with the procedure wore the appropriate PPE (Personal Protective Equipment). No special equipment needed. Patient/Surrogate Stated/Verified: PATIENT VERIFIED(optional for EMERGENT procedures): Patient name, Date of , Relevant allergies, and The intended procedure Time Out Communication: Intended patient and procedure match the source documents. Consent documented and matches the intended procedure. No relevant labs, photos, and/or imaging studies were applicable for review. No correct side/site applicable for marking and visibility. No medications required for procedure. No fire risk assessment and interventions applicable. No implant(s) inserted. Sign Out: SIGN OUT (optional for EMERGENT procedures): No specimen collected. All instruments, equipment, possible retained foreign bodies accounted for. Post-procedure follow-up management communicated and Plan of Care Visit completed when applicable. KWAME New Richard T, MD 11/28/2023 9:08 AM Signed FOLLOW UP VISIT - HEMORRHOID BANDING NAME: Chika Good [facility] NO.: [id number] DATE OF SERVICE: 11/25/2023 : 1970 REFERRING PHYSICIAN: Clark Javed MD Chika is a patient I am following for symptomatic internal hemorrhoids. The patient returns for hemorrhoidal banding. They have not take aspirin or other blood thinners for over 7 days. VITALS: Blood pressure 118/74, pulse 101, temperature 36.1 ?C (96.9 ?F), height 160 cm (5' 3), weight 90.5 kg (199 lb 9.6 oz), last menstrual period 08/23/2023, SpO2 97%. Body mass index is 35.36 kg/m?. On examination, the patient has a mixed external interal hemorrhoidal. PROCEDURE: HEMORRHOIDAL BANDING The risks, benefits and anticipated outcomes of the procedure, the risks and benefits of the alternatives to the procedure, and the roles and tasks of the personnel to be involved, were discussed with the patient, and the patient consents to the procedure and agrees to proceed. After consent was obtained and the site, person, and procedure verified, the patient was positioned. A digital rectal exam was performed demonstrating internal hemorrhoids without other abnormalities. An anoscope was introduced demonstrating symptomatic internal hemorrhoid. The hemorrhoidal complex was grasped with an forceps without causing discomfort to the patient. A single band was deployed over the complex. The patient remained asymptomatic. The anoscope was removed. The patient tolerated the procedure well. Assessment IMPRESSION: Status post interal hemorrhoidal banding PLAN: If the patient notes any problems or pain, they should contact me immediately. The patient was informed that- A small amount of bleeding is common when the hemorrhoid sloughs at 3-5 days. Do not that aspirin for the next week. If you have significant bleeding or other problems, contact our office. Diagnoses: (K64.9) Hemorrhoids, unspecified hemorrhoid type (primary encounter diagnosis) Return to Clinic: The patient is instructed to follow-up with me in 2-3 weeks for additional banding if necessary. Naya Pepe MD Allergies As of Date: 11/25/2023 (No Known Allergies) Date Reviewed: 11/25/2023 Reviewed by: Tete Covington RN - Fully Assessed Reason for Visit: Follow Up [171] Cmt: hemorrhoids Primary Visit Diagnosis:Hemorrhoids, unspecified hemorrhoid type [K64.9] Prescriptions as (more content not included)... Normal [facility] Discharge Instructionon Discharge Instruction [facility] Medical Records Department [address] [place] [address] Instructions for Home/Discharge Instructions 11/17/23 0745 MR#: [id number] Acct: [id number] Name: BALDEMARCHIKA WADE Rep #: [id number] : 1970 53 From: Jyotsna Mcwilliams MD PCP: Dr. Clark Javed MD Status:REG [facility] Instructions Diet Discharge Diet: No restrictions Activity Discharge Activity: Return to Normal Activity Dressing / Incision Call your doctor if you observe: Fever of 101 or Higher, Inability to urinate and Inability to have a bowel movement Follow Up Care Please Follow Up With: Jyotsna Mcwilliams MD When: As scheduled for the next procedure. Test Results: Test results from this visit will be discussed in further detail at your follow-up appointment, if applicable. Discharge Plan Admission Attending Provider: Jyotsna Mcwilliams Primary Care Provider: Clark Javed Instructions Print Language: Kosovan Discharge Orders/Prescriptions Prescriptions: New oxycodone-acetaminophen [Percocet] 5-325 mg tablet 1 tab PO Q8H PRN (Reason: pain) 3 Days Qty: 10 0RF cephalexin 500 mg capsule 500 mg PO Q12 3 Days Qty: 6 0RF Continued fluticasone propion-salmeterol [Advair Diskus] 250-50 mcg/dose blister with device 1 inh INHALATION DAILY albuterol sulfate [ProAir HFA] 90 mcg/actuation HFA aerosol inhaler 1 puff INHALATION Q6H PRN (Reason: shortness of breath or wheezing) Dupixent Pen 300 mg/2 mL pen injector 300 mg SC .COMPLEX Rx Instructions: 300 mg subcut once every 15 days; atorvastatin [Lipitor] 10 mg tablet 10 mg PO DAILY psyllium husk [Daily Fiber] 0.4 gram capsule 0.4 g PO DAILY PRN (Reason: constipation) estradiol [Adelina] 0.0375 mg/24 hr patch semiweekly 1 patch transdermal .EVERY 3 DAYS progesterone micronized 100 mg capsule 100 mg PO QHS omeprazole 40 mg capsule,delayed release(DR/EC) 40 mg PO QHS metformin 500 mg tablet extended release 24 hr 1,000 mg PO QPM Zepbound 10 mg/0.5 mL pen injector 10 mg subcut QWEEK naproxen [Naprosyn] 500 mg tablet 500 mg PO BID PRN (Reason: pain) Qty: 20 0RF Referrals / Follow Up: Clark Javed MD [Primary Care Provider] - Disposition Disposition (needs filled in before D/C Order can be placed): Home, Self Care 11/17/2348 Jyotsna Mcwilliams MD CC: Dr. Clark Javed MD Signed [facility] MR/POSTOP.ANEon 11-17-2023 MR/POSTOP.[facility] Medical Records Department [address] [place] [address] Anesthesia Postop Eval I 11/17/23 0848 MR#: [id number] Acct: [id number] Name: GOODCHIKA WADE Rep #: [id number] : 1970 53 From: Lin Hernández CRNA PCP: Dr. Clark Javed MD Status:REG SDC Y Race: C Location: [place] [address] Anesthesia: Postop Eval I Current Vital Signs Temperature: 97.3 F Pulse Rate: 84 Blood Pressure: 109/61 Respiratory Rate: 16 Pulse Ox: 94 Oxygen Delivery Method: Room Air Assessment Airway patent: Yes Spontaneous unlabored respirations: Yes Mental status: Awake and Calm nausea: No Vomiting: No Anesthesia Complication: No Fluid Hydration Crystalloid volume administer (ml): 600 Total IV fluid infused: 600 Progress Note Anesthesia document: Postop Eval 1 completed: Yes 11/17/23 0849 Date ____ Lin Hernández FOOD SERVICE UTILITY WORKER Cosigner Signature: Date ____ CC: Signed [facility] MR/[id number] 11-17-2023 MR/POSTOPAN2 [facility] Medical Records Department [address] [place] [address] Anesthesia Postop Eval II 11/17/23 0910 MR#: [id number] Acct: [id number] Name: GOODCHIKA Rep #: [id number] : 1970 53 From: Leighton Mora MD PCP: Dr. Clark Javed MD Status:REG SDC Y Race: C Location: [address] Anesthesia Postop Eval I Sum Postop Eval Completion status Anesthesia document: Postop Eval 1 completed: Yes Anesthesia Postop Eval I Summary Anesthesia Postop Eval I Summary: Anesthesia Postop Eval I: Assessment Summary Airway patent Yes 11/17/23 08:49 FOOD SERVICE UTILITY WORKER.SKOBY Spontaneous unlabored Yes 11/17/23 08:49 FOOD SERVICE UTILITY WORKER.SKOBY respirations Mental status Awake,Calm 11/17/23 08:49 FOOD SERVICE UTILITY WORKER.SKOBY nausea No 11/17/23 08:49 FOOD SERVICE UTILITY WORKER.SKOBY Vomiting No 11/17/23 08:49 FOOD SERVICE UTILITY WORKER.SKOBY Anesthesia Postop Eval I: Fluid Summary Crystalloid volume administer 600 11/17/23 08:49 FOOD SERVICE UTILITY WORKER.SKOBY (ml) Colloids volume administered ( ml) Blood Product volume administered (ml) Total IV fluid infused 600 11/17/23 08:49 FOOD SERVICE UTILITY WORKER.RAMESHOBReema Anesthesia Postop Eval I: Summary Notes Anesthesia Complication No 11/17/23 08:49 FOOD SERVICE UTILITY WORKER.SKOBReema Anesthesia Complication Comment: Post-operative progress note Anesthesia: Postop Eval II Evaluation Mental status: Awake Pain Level: 0 nausea: No Vomiting: No 11/17/23 0910 Date ____ Leighton Mora MD Cosigner Signature: Date ____ CC: Signed Normal [facility] Operative Reporton 4 Operative Report [facility] Medical Records Department [address] [place] [address] Operative Report 11/17/23 0740 MR#: [id number] Acct: [id number] Name: CHIKA GOOD Rep #: [id number] : 1970 53 From: Jyotsna Mcwilliams MD PCP: Dr. Clark Javed MD Status:REG ARC Location: [place] [address] Report of Operation Date of Procedure: 11/17/23 Pre-Operative Diagnosis: Bilateral kidney stones Post-Operative Diagnosis: Same Surgery/Procedure Performed:: Left renal extracorporal shockwave lithotripsy Surgeon: Jyotsna Mcwilliams Type of Anesthesia: General Specimen's removed: None Description of Procedure: The patient is a 53-year-old female found to have bilateral kidney stones who presents for surgical intervention today on the left side. Informed consent was obtained. She was taken to the operating room and placed on the lithotripsy table. Anesthesia monitored the head, neck, airway, IV access and vital signs throughout the case. Once anesthesia was appropriately administered she was aligned with the lithotripter and her stones were easily visualized in the lower pole. 3000 shockwaves were applied to the stones which appeared to be fragmented at the conclusion of the case. She was awakened and taken to the recovery room in good condition. There were no complications during this procedure. Grafts/Implants Used: None Complications None Admit VTE Documentation VTE Present on Admission: Yes VTE Mechan Device Prophylaxis: SCD's VTE Pharm Prophylaxis ordered?: No Reason prophylaxis not ordered:: Treatment Not Indicated 11/17/23 0837 Cosigner Signature (if applicable): CC: Dr. Jyotsna Mcwilliams MD; Dr. Clark Javed MD Signed [facility] ,Urineon 11-17-2023 Beta HCG ( test) Ql (U) Negative [facility] Comment on above: Result Comment: Very dilute urine specimens, as indicated by a low specific gravity, may not contain contact center representative levels of hCG. If is still suspected, a first morning urine specimen should be collected 48 hours later and tested. Performed By: #### L 400.7600 #### [facility] [address] [place], [address] Beta HCG ( test) Ql (U) Normal [facility] Comment on above: Result Comment: Tye nobles via OM: Duplicate Order Performed By: #### L 400.7600 #### [facility] [address] [place], [address] INTERNAL QC OK? Normal [facility] Comment on above: Result Comment: Tye nobles via OM: Duplicate Order Performed By: #### L 400.7600 #### [facility] [address] [place], [address] RECORD KIT LOT# Normal [facility] Comment on above: Result Comment: Cansy ellbarrett via OM: Duplicate Order Performed By: #### L 400.7600 #### [facility] [address] [place], [address] CNPNon 11-04-2023 CNPN Telephone (OBGYWM) CHIKA GOOD ([id number]) 1970 F Date Time Provider Department 11/04/23 KAILYN GILL OBGYWM During your visit today, we recorded the following information about you: Teresa Villa RN 11/04/2023 1:08 PM Signed Patient last seen 10/20/23. States the pharmacy has not yet received new RX for Zepbound. Patient would like it sent to [facility] pharmacy if possible. KWAME Gonzalez Deidre, MD 11/04/2023 2:42 PM Signed Resent to meier (10mg) also sent the next dose anticipating she does well at this dose for another month- if not then we will reorder the 10mg. Eliu Singh RN 11/04/2023 2:45 PM Signed Pt notified and voiced understanding. Eliu Singh RN Allergies As of Date: 11/04/2023 (No Known Allergies) Date Reviewed: 10/20/2023 Reviewed by: Franca Clark LPN - Fully Assessed Reason for Visit: Medication Problem [65] Visit Diagnosis:Class 2 severe obesity with serious comorbidity and body mass index (BMI) of 35.0 to 35.9 in adult, unspecified obesity type (HCC) [E66.01, Z68.35] Order(s):tirzepatide, weight loss (ZEPBOUND) 10 mg/0.5 mL pen injectorInject 10 mg subcutaneously one time a week.Disp: 2 mLRfl: 0 [START ON 12/02/2023] tirzepatide, weight loss (ZEPBOUND) 12.5 mg/0.5 mL pen injectorInject 12.5 mg subcutaneously one time a week for 28 days. Patient should start on December 02, 2023.Disp: 2 mLRfl: 0 Prescriptions as of 11/04/2023 - tirzepatide, weight loss (ZEPBOUND) 10 mg/0.5 mL pen injector Inject 10 mg subcutaneously one time a week. - tirzepatide, weight loss (ZEPBOUND) 12.5 mg/0.5 mL pen injector Inject 12.5 mg subcutaneously one time a week for 28 days. Patient should start on December 02, 2023. - ondansetron (ZOFRAN) 4 mg tablet Take 1 tablet by mouth every 8 hours as needed for nausea/vomiting for up to 30 doses. - metFORMIN ER (GLUCOPHAGE XR) 500 mg 24 hr tablet Take 2 tablets by mouth daily with dinner. - Norethindrone, Contraceptive, 0.35 mg tablet Take 1 tablet by mouth once daily. - omeprazole (PRILOSEC) 40 mg capsule Take 1 capsule by mouth once daily. - ADELINA 0.0375 mg/24 hr - estradiol (ESTRACE) 0.01 % (0.1 mg/gram) vaginal cream - atorvastatin (LIPITOR) 20 mg tablet Take 1 tablet by mouth daily at bedtime. For cholesterol. - fluticasone-salmeterol (ADVAIR DISKUS) 250-50 mcg/dose inhaler Inhale 1 Puff as instructed two times a day. Rinse and gargle mouth after use with water. - albuterol HFA (VENTOLIN HFA) 90 mcg/actuation inhaler Inhale 2 Puffs as instructed every 4 hours as needed. - CHOLECALCIFEROL, VITAMIN D3, ORAL Take by mouth as directed. Combined with omega 3 - DUPIXENT SYRINGE 300 mg/2 mL injection Inject 300 mg subcutaneously every 2 weeks. Meds Comments as of 12/01/2007: All medications reviewed today/October 10, 2007 [facility] All medications reviewed today/December 01, 2007 Sharon Poe Rn Problem List As Of Date 11/04/2023 Noted Resolved ADVANCED MATERNAL AGE:MULTIPARA[659.63] [O09.52*04/19/2007 04/19/2007 AMA PRIMIGRAVID-ANTEPARTUM [O09.519] 04/19/2007 11/21/2007 Family history of malignant neoplasm of gastroi* Moderate persistent asthma without complication* Allergic rhinitis, seasonal [J30.2] Anxiety [F41.9] 07/07/2012 Depression [F32.A] 07/07/2012 Obesity (BMI 35.0-39.9 without comorbidity) [E6*06/06/2013 Hyperlipidemia, mixed [E78.2] 11/01/2014 LITO (obstructive sleep apnea) [G47.33] 01/22/2015 Abnormal mammogram [R92.8] 05/03/2015 Psoriasis [L40.9] 12/10/2015 GERD without esophagitis [K21.9] 12/10/2015 Upper back pain [M54.9] 03/17/2016 Neck pain [M54.2] 03/17/2016 Chronic tension-type headache, intractable [G44*03/17/2016 Large breasts [N62] 03/17/2016 Encounter for screening for diabetes mellitus [*03/31/2017 Well adult exam [Z00.00] 01/21/2020 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 TIRZEPATIDE (WEIGHT LOSS) 12.5 MG/0.* 2 mL 0 12/02/2023 12/30/2023 Route: SUBCUTANEOUS Sig: Inject 12.5 mg subcutaneously one time a week for 28 days. Patient should start on December 02, 2023. Medications Discontinued During This Encounter Prescriptions - tirzepatide, weight loss (ZEPBOUND) 10 mg/0.5 mL pen injector (Discontinued) Inject 10 mg subcutaneously one time a week. Patient should start on September 26, 2023. Encounter Status:Closed by ELIU SINGH on 11/04/23 [facility] Hior 10-28-2023 [facility] Telephone (SLEWST) CHIKA GOOD ([id number]) 1970 F Date Time Provider Department 10/28/23 LIBBY GOODMAN During your visit today, we recorded the following information about you: Shira George LPN 10/28/2023 3:42 PM Signed TC to pt with no answer. Left VM to return call. Melany see if pt would like to schedule appt to come in with her PAP machine and mask. If agreeable please transfer to neuro. Shira George LPN Allergies As of Date: 10/28/2023 (No Known Allergies) Date Reviewed: 10/20/2023 Reviewed by: Franca Clark LPN - Fully Assessed Reason for Visit: Orders [681] Prescriptions as of 10/31/2023 - ondansetron (ZOFRAN) 4 mg tablet Take 1 tablet by mouth every 8 hours as needed for nausea/vomiting for up to 30 doses. - tirzepatide, weight loss (ZEPBOUND) 10 mg/0.5 mL pen injector Inject 10 mg subcutaneously one time a week. Patient should start on September 26, 2023. - metFORMIN ER (GLUCOPHAGE XR) 500 mg 24 hr tablet Take 2 tablets by mouth daily with dinner. - Norethindrone, Contraceptive, 0.35 mg tablet Take 1 tablet by mouth once daily. - omeprazole (PRILOSEC) 40 mg capsule Take 1 capsule by mouth once daily. - ADELINA 0.0375 mg/24 hr - estradiol (ESTRACE) 0.01 % (0.1 mg/gram) vaginal cream - atorvastatin (LIPITOR) 20 mg tablet Take 1 tablet by mouth daily at bedtime. For cholesterol. - fluticasone-salmeterol (ADVAIR DISKUS) 250-50 mcg/dose inhaler Inhale 1 Puff as instructed two times a day. Rinse and gargle mouth after use with water. - albuterol HFA (VENTOLIN HFA) 90 mcg/actuation inhaler Inhale 2 Puffs as instructed every 4 hours as needed. - CHOLECALCIFEROL, VITAMIN D3, ORAL Take by mouth as directed. Combined with omega 3 - DUPIXENT SYRINGE 300 mg/2 mL injection Inject 300 mg subcutaneously every 2 weeks. Meds Comments as of 12/01/2007: All medications reviewed today/October 10, 2007 [facility] All medications reviewed today/December 01, 2007 Sharon Poe Rn Problem List As Of Date 10/28/2023 Noted Resolved ADVANCED MATERNAL AGE:MULTIPARA[659.63] [O09.52*04/19/2007 04/19/2007 AMA PRIMIGRAVID-ANTEPARTUM [O09.519] 04/19/2007 11/21/2007 Family history of malignant neoplasm of gastroi* Moderate persistent asthma without complication* Allergic rhinitis, seasonal [J30.2] Anxiety [F41.9] 07/07/2012 Depression [F32.A] 07/07/2012 Obesity (BMI 35.0-39.9 without comorbidity) [E6*06/06/2013 Hyperlipidemia, mixed [E78.2] 11/01/2014 LITO (obstructive sleep apnea) [G47.33] 01/22/2015 Abnormal mammogram [R92.8] 05/03/2015 Psoriasis [L40.9] 12/10/2015 GERD without esophagitis [K21.9] 12/10/2015 Upper back pain [M54.9] 03/17/2016 Neck pain [M54.2] 03/17/2016 Chronic tension-type headache, intractable [G44*03/17/2016 Large breasts [N62] 03/17/2016 Encounter for screening for diabetes mellitus [*03/31/2017 Well adult exam [Z00.00] 01/21/2020 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 Protein >= Carbs for each meal (if you are going to eat 50g carbs for lunch you should eat 50g protein or more). If you do not eat your carbs for lunch you do not get to save them for dinner- you use them or lose them. Balance your Protein between meals. Unless told otherwise your Minimum protein each day is 30grams per meal but don?t be afraid to eat more. Focus on WHOLE FOODS if you can as your Gut Microbiome will benefit and you will feel more satisfied - the only caviot to this is protein shakes if needed. Water intake should be a minimum of 64oz per day- but more is better (to an extent) unless you have a medical condition that requires you to keep it to a minimum. Nothing is off limits- this is not about restricting yourself- this about learning what your body can have and still respond well to and learning how to balance food and still feel good. Track your food, weigh your food, measure your portion sizes as most people underestimate their food by approximately 40%. You should be tracking your Carbohydrates and Protein daily. It?s ok if you had a bad day- write it down and move on! Weigh yourself daily or at least 5 times per week, it will help to keep you accountable. If you are hungry- think about your stress level, your sleep (did you get 7.5-9hrs?) and your protein consumption- if you did not meet your goals then those could be contributing to your hunger. During weight loss phase it is ok to use two protein shakes per day and eating one meal along with it - studies have shown you will lose more weight and keep it off. Take a multivitamin daily Sit less Move more- Exercise including resistance training is very important for your health and if you are not getting routine exercise right now there will come a point when it will become an important piece of this process. VEGAN PROTEIN LIST SOY Tempeh: 17g protein 8g carbohydrate in 1/2 cup, Shelled Edamame: 9g Protein, 8g carbohydrate in 1/2cup Tofu: 9g protein,2 g carbohydrate per 3oz Soy Milk: 7g Protein, 15g carbohydrate in 1 cup Nutritional Yeast 8g Protein, 5g Carbohydrate in 2TBSP (16g) Seitan 30g Protein, 6.8g Carbohydrate in 1/2 cup Whole Grains Quinoa: 8g protein in 1cup Wild rice 6.5g protein in 1 cup Legumes Lentils 12g protein, 23g carbohydrate in 1/2 cup cooked Chickpea 6g protein, 17g carbohydrate in 1/2 cup cooked Black Beans 7g protein, 19g carbohydrate in 1/2 cup cooked Green Split peas 8g protein, 22g carbohydrate in 1/2 cup cooked Garcia Mendiola 8g protein, 20g carbohydrate in 1/2 cup cooked Seeds Pumpkin 8g protein, 3 carbohydrate in 1/4cup Hemp 9g protein, 3 carbohydrate in 3 Tablespoons Tahini 10g protein, 3 carbohydrate in 2 Tablespoons Harley 5g protein, 10g carbohydrate in 2 tablespoons Nuts Almonds 6g protein, 6g carbohydrate in 1/4cup Walnuts 4g protein, 4g carbohydrate in 1/4cup Cashew 4g protein, 9g carbohydrate in 1/4cup Peanuts 8g protein, 5g carbohydrate in 1/4cup Peanut butter 7g protein, 6g carbohydrate in 2 TBSP Potatoes Russet potato- 1 medium (173g) 4.5g protein, 37g carbohydrate Red Potato- 1 large (299g) 6.9g protein, 59g carbohydrate Sweet Potato - 1 medium (114g) 2.3g protein, 24g carbohydrate Sprouted grain bread Nestor bread- per slice 5g protein, 15g carbohydrate Vegetables Artichoke- 4.2g protein, 13g carbohydrate in 1 medium (128g) Green Peas- 8g protein, 21g carbohydrates in 1 cup Brussel Sprouts - 3g protein, 8g carbohydrate in 1 cup [place]- 4.3g protein, 19g carbohydrate in 1/2cup Spinach- 1g protein, 1g carbohydrate in 1 cup 3g carb8g carb 20g protein, 4 carbohydrate per scoop QUICK VEGAN PROTEIN PRODUCTS/SNACKS: NOT high in protein- BUT LOW CARB SUBSTITUTE FOR NOODLES Tips for eating away from home: YouVoz.ioube video: https://www.[employer].com/watch?v =Q3dEZZfYTcW Meals away from home make it harder to control ingredients, calories, and portions. This can be particularly challenging for people with Type 2 diabetes (and for those of us trying to avoid getting this condition). The following tips can help you enjoy eating out without abandoning your efforts to eat well. Ask how the food is prepared. Before you order, ask about ingredients and how the menu selections are prepared. Try to choose dishes made with whole grains, healthy oils, vegetables, and lean proteins. Meat that has been broiled, poached, baked, or grilled is a more health-conscious option than fried foods or dishes prepared with heavy sauc (more content not included)... Normal [facility] Office Visit (GNSWAD ) CHIKA GOOD ([id number]) 1970 F Date Time Provider Department 10/20/23 8:15 AM NAYA PEPE During your visit today, we recorded the following information about you: Pulse Blood pressure Weight Height 77/minute 105/71 91.5 kg 1.6 m Thais Fletcher LPN 10/20/2023 7:24 PM Signed REVIEW OF SYSTEMS: General: The patient denies fatigue, denies weight loss, denies weight gain, denies feeling hot, and denies feelings of cold. Eyes: The patient denies glaucoma, NOTES eye injury/surgery, wears glasses or contacts. Ear/Nose/Throat: The patient NOTES allergies, denies hayfever, denies ear infections, and denies bloody noses. Cardiovascular: The patient denies chest pain, denies heart disease, denies high blood pressure, NOTES high cholesterol, and denies poor circulation. Respiratory: The patient denies tuberculosis, denies pneumonia, denies frequent cough, denies shortness of breath, and denies coughing up blood. Gastrointestinal: The patient denies difficulty swallowing, NOTES acid reflux, denies ulcers, denies jaundice/hepatitis, denies gallbladder problems, denies vomiting, denies black or tarry stools, NOTES hemorrhoids, denies bleeding from rectum, denies diverticulitis, NOTES constipation, NOTES diarrhea, denies loss of stool control, and denies hernias. Kidney/Bladder: The patient denies kidney stones, denies urine infections, and denies bloody urine. Skin: The patient denies a history of skin cancer, denies bleeding/changing moles, and denies a history of skin rash. Neurologic: The patient denies a history of epilepsy/convulsions, NOTES headaches, denies head/spinal injuries, and denies stroke/TIA. Psychiatric: The patient denies psychiatric medications, denies depression, and denies voices. Endocrine: The patient denies thyroid disorders, denies diabetes, and denies hormonal problems. Hematologic: The patient denies a history of bruising, denies bleeding, and denies anemia. Infections: The patient denies a history of measles and mumps, denies rheumatic fever, and denies sexually transmitted diseases. Musculoskeletal: The patient denies back pain/injury, denies back problems, denies sciatica, denies knee/foot trouble, NOTES arthritis, or denies gout. Naya Pepe MD 10/20/2023 7:24 PM Signed HISTORY AND PHYSICAL Chika Good 1970 REFERRING PHYSICIAN: Latrice Etienne APRN.* CHIEF COMPLAINT: Hemorrhoids HPI: The patient is a 53 year old female with a complaint of symptomatic hemorrhoids. The patient notes issues with itchiness on her external hemorrhoids. She notes a small nodule on the right posterior aspect just inside the anal verge. She has tried suppositories which she felt worked for a little while but not recently. She noted issues with hemorrhoids approximately 10 years ago and now for the past 4 to 6 months has noted issues with itching and some discomfort. She has a family history of colon cancer. I performed upper and lower endoscopy on February 03, 2022. The patient was found of a 6 mm Polyp which returned as a hyperplastic polyp. I recommended follow-up colonoscopy in 5 years given her family history. Upper endoscopy demonstrated gastritis and mild distal esophagitis. The patient is being seen by me today at the request of Latrice Etienne APRN.* my opinion and advice regarding symptomatic hemorrhoids. PAST MEDICAL HISTORY No date: Abnormal glandular Papanicolaou smear of cervix Comment: Abn. Pap smear (cervix) No date: Acute gastritis without mention of hemorrhage No date: Allergic rhinitis, seasonal 07/07/2012: Anxiety 03/17/2016: Chronic tension-type headache, intractable 07/07/2012: Depression 01/21/2020: Encounter for routine gynecological examination Comment: Sees Dr. Lainez No date: Esophageal stenosis 12/10/2015: GERD without esophagitis 11/01/2014: Hyperlipidemia, mixed No date: Kidney stone 06/06/2013: Obesity (BMI 35.0-39.9 without comorbidity) 01/22/2015: LITO (obstructive sleep apnea) Comment: Has a CPAP No date: Other constipation No date: Spongiotic dermatitis Comment: Dr. sapp 01/21/2020: Well adult exam Comment: Last done 10/26/21 PAST SURGICAL HISTORY No date: ADENOIDECTOMY PRIMARY Comment: Adenoidectomy 09/2016: BREAST REDUCTION 05/03/2015: BX BREAST W/DEVICE 1ST LESION ULTRASOUND GUID; Left Comment: U/S Needle core upper mid left breast 11/2007: DELIVERY ONLY Comment: [facility] 2003: COLONOSCOPY FLX DX W/COLLJ SPEC WHEN PFRMD Comment: Colonoscopy 08/21/2008: COLONOSCOPY FLX DX W/COLLJ SPEC WHEN PFRMD Comment: Colonoscopy 01/14/2015: COLONOSCOPY FLX DX W/COLLJ SPEC WHEN PFRMD 02/04/2020: COLONOSCOPY FLX DX W/COLLJ SPEC WHEN PFRMD Comment: Colonoscopy- repeat 5 year 1994: CONIZATION CERVIX W/WO DANDC RPR ELTRD EXC Comment: LEEP-Cervix (more content not included)... Normal [facility] Abdomen Single Viewon 2023 Abdomen Single View [facility] Services [address] [place] [address] Abdomen Single View MR#: [id number] Acct: [id number] Name: CHIKA GOOD Rep #: [id number] : 1970 F 53 From: Kavita alcala MD PCP: Dr. Clark Javed MD Status: REG CLI Study: Abdomen Single View Date of Exam: 10/18/23 Exam# [id number] Ordering Dr: Jyotsna Mcwilliams MD [id number] HISTORY: RIGHT KIDNEY STONE. TECHNIQUE: XR Abdomen 1 View. COMPARISON: CT 10/13/2023. FINDINGS: BOWEL GAS PATTERN: No dilated bowel loops identified. FREE AIR: Not assessed on supine view. CALCIFICATIONS: Bilateral 3 mm renal calculi. Small bilateral pelvic phleboliths observed. 3 mm left pelvic calcification. BONES: Unremarkable. SOFT TISSUES: Lung bases clear. RAD/Abdomen Single View IMPRESSION: Bilateral nephrolithiasis. Possible 3 mm left UVJ calculus. Electronically Signed: Kavita Willis MD at 8:50 EDT , CC: Dr. Jyotsna Mcwilliams MD; Dr. Clark Javed MD Telemetry Rn: Signed Normal [facility] Abdomen/Pelvis without Conto n 10-13-2023 Abdomen/Pelvis without Cont [facility] Imaging Services [address] [place] [id number] Abdomen/Pelvis without Cont MR#: [id number] Acct: [id number] Name: CHIKA GOOD Rep #: [id number] : 1970 F 53 From: Jeremy leone MD PCP: Dr. Clark Javed MD Status: DEP ER Study: Abdomen/Pelvis without Cont Date of Exam: 04/06 Exam# [id number] Ordering Dr: Yumiko Muller DO [id number] EXAM: CT ABDOMEN AND PELVIS WITHOUT INTRAVENOUS CONTRAST CLINICAL INDICATION: LEFT FLANK TECHNIQUE: Helically acquired images were obtained of the abdomen and pelvis without intravenous contrast. This CT exam was performed using one or more of the following dose reduction techniques: automated exposure control, adjustment of the mA and/or kV according to patient size, and/or use of iterative reconstruction technique. RADIATION DOSE: Total DLP: 660.21 mGy-cm. COMPARISON: Abdomen pelvis CT of 11/23/2020. FINDINGS: LOWER THORAX: Chronic linear scarring noted within the left lower lobe laterally, unchanged. No acute basilar pulmonary infiltrates or pleural effusions. No coronary artery calcification is visualized. No significant pericardial effusion. Small hiatal hernia again noted. ABDOMEN: LIVER: Fatty infiltration of the liver. The right hepatic lobe lobe is mildly elongated measuring approximately 17.4 cm in cephalocaudal dimension. Focal fatty sparing noted adjacent to the gallbladder. GALLBLADDER AND BILE DUCTS: Contracted gallbladder. No gallstones, pericholecystic stranding or biliary ductal dilatation. PANCREAS: Unremarkable. No focal cystic mass. SPLEEN: Unremarkable. Normal size without focal cystic or solid mass. ADRENALS: Unremarkable. No nodules. KIDNEYS AND URETERS: Minimal left hydronephrosis and mild left hydroureter are present secondary to a 4 x 3 mm ovoid stone which lies within the distal ureter at the UVJ. The kidneys are normal in size. Numerous small calcifications are noted within both intrarenal collecting systems, measuring up to 6 mm in diameter on the right and up to 5 mm in diameter on the left. STOMACH AND BOWEL: Unremarkable. No stomach or bowel distention. No focal inflammatory change. PELVIS: APPENDIX: No evidence of acute appendicitis. BLADDER: Urinary bladder is nearly empty. REPRODUCTIVE: Unremarkable as visualized. No adnexal mass. ABDOMEN and PELVIS: INTRAPERITONEAL SPACE: Unremarkable. No ascites or other fluid collection. No free air. BONES/JOINTS: Lower lumbar facet arthritis. Degenerative spurring about the T9/T10 disc space. No acute osseous abnormality. No suspicious lytic or blastic abnormality. SOFT TISSUES: Unremarkable. No discrete abdominal or pelvic wall hernia. VASCULATURE: Unremarkable. Abdominal aorta is non-dilated. LYMPH NODES: Small nonspecific lymph nodes are seen within the jejunal mesentery. No adenopathy. CT/Abdomen/Pelvis without Cont IMPRESSION: Minimal left hydronephrosis due to a 4 x 3 mm stone which lies within the distal ureter at the UVJ. Nonobstructing ureteral calculi noted bilaterally. Electronically Signed: Jeremy Mccurdy MD at 1:29 EDT , CC: Dr. Clark Javed MD; Dr. Yumiko Muller DO Telemetry Rn: Signed Normal [facility] Basic Metabolic Profile (BMP )on 10-13-2023 BUN/CRE 17.2 RATIO Normal 10-20 [facility] Comment on above: Performed By: #### L 100.0100, L700.6800, L500.2500 ####[facility] [address] [place], [address] CA,Total 9.1 mg/dL Normal 8.5-10.1 [facility] Comment on above: Performed By: #### L 100.0100, L700.6800, L500.2500 ####[facility] [address] [place], [address] Chloride [Moles/Vol] 106 mmol/L Normal 98-107 [facility] Comment on above: Performed By: #### L 100.0100, L700.6800, L500.2500 ####[facility] [address] [place], [address] CO2 [Moles/Vol] 27.0 mmol/L Normal 21.0-32.0 [facility] Comment on above: Performed By: #### L 100.0100, L700.6800, L500.2500 ####[facility] [address] [place], [address] Creatinine [Mass/Vol] 0.81 mg/dL Normal 0.55-1.02 [facility] Comment on above: Result Comment: The validity of the calculated GFR GFRAA in patients over 70 years has not been determined. Clinical correlation is essential. Performed By: #### L 100.0100, L700.6800, L500.2500 ####[facility] [address] [place], [address] ECRCL 88.03 ml/min Normal [facility] Comment on above: Performed By: #### L 100.0100, L700.6800, L500.2500 ####[facility] [address] [place], [address] EST GFR - AA 95 mL/min Normal >60 [facility] Comment on above: Result Comment: Afri can Anguillan GFR Calc Performed By: #### L 100.0100, L700.6800, L500.2500 ####[facility] [address] [place], [address] GAP 4 Low 5-15 [facility] Comment on above: Performed By: #### L 100.0100, L700.6800, L500.2500 ####[facility] [address] [place], [address] GFR/1.73 sq M.predicted among non-blacks MDRD (S/P/Bld) [Vol rate/Area] 79 mL/min/{1.73_m2} Normal >60 [facility] Comment on above: Result Comment: Non- GFR Calc Performed By: #### L 100.0100, L700.6800, L500.2500 ####[facility] [address] [place], [address] Glucose [Mass/Vol] 106 mg/dL Normal 74-106 [facility] Comment on above: Result Comment: Fast ing Glucose result from 100 to 125 mg/dL suggests IMPAIRED HOMEOSTASIS per A.D.A. criteria. Performed By: #### L 100.0100, L700.6800, L500.2500 ####[facility] [address] [place], [address] Potassium [Moles/Vol] 3.5 mmol/L Normal 3.5-5.1 [facility] Comment on above: Performed By: #### L 100.0100, L700.6800, L500.2500 ####[facility] [address] [place], [address] Sodium [Moles/Vol] 137 mmol/L Normal 136-145 [facility] Comment on above: Performed By: #### L 100.0100, L700.6800, L500.2500 ####[facility] [address] [place], [address] Urea nitrogen [Mass/Vol] 14 mg/dL Normal 7-18 [facility] Comment on above: Performed By: #### L 100.0100, L700.6800, L500.2500 ####[facility] [address] [place], [address] CBC W/Diff, Automatedon 08-0 -2023 Absolute Lymph 3.48 X10 3/uL Normal 0.83-4.51 [facility] Comment on above: Performed By: #### L 100.0100, L700.6800, L500.2500 ####[facility] [address] [place], [address] Absolute Neut 5.2 X10 3/uL Normal 2.0-7.7 [facility] Comment on above: Performed By: #### L 100.0100, L700.6800, L500.2500 ####[facility] [address] [place], [address] Basophils/100 WBC (Bld) 0.6 % Normal 0-1 [facility] Comment on above: Performed By: #### L 100.0100, L700.6800, L500.2500 ####[facility] [address] [place], [address] Eosinophils/100 WBC (Bld) 2.5 % Normal 0-5 [facility] Comment on above: Performed By: #### L 100.0100, L700.6800, L500.2500 ####[facility] [address] [place], [address] Erythrocyte distribution width (RBC) [Ratio] 13.3 % Normal 11.6-14.6 [facility] Comment on above: Performed By: #### L 100.0100, L700.6800, L500.2500 ####[facility] [address] [place], [address] Hematocrit (Bld) [Volume fraction] 40.8 % Normal 37-47 [facility] Comment on above: Performed By: #### L 100.0100, L700.6800, L500.2500 ####[facility] [address] [place], [address] Hemoglobin (Bld) [Mass/Vol] 13.9 g/dL Normal 12.0-15.0 [facility] Comment on above: Performed By: #### L 100.0100, L700.6800, L500.2500 ####[facility] [address] [place], [address] IG% 0.300 Normal 0.0-0.9 [facility] Comment on above: Result Comment: IG% - Immature Granulocytes (promyelocytes, myelocytes and metamyelocytes) > 1% indicates that a LEFT SHIFT is Present. Performed By: #### L 100.0100, L700.6800, L500.2500 ####[facility] [address] [place], [address] Lymphocytes/100 WBC (Bld) 36.5 % Normal 19-41 [facility] Comment on above: Performed By: #### L 100.0100, L700.6800, L500.2500 ####[facility] [address] [place], [address] MCH (RBC) [Entitic mass] 29.8 pg Normal 27.0-32.0 [facility] Comment on above: Performed By: #### L 100.0100, L700.6800, L500.2500 ####[facility] [address] [place], [address] MCHC (RBC) [Mass/Vol] 34.1 g/dL Normal 32-36 [facility] Comment on above: Performed By: #### L 100.0100, L700.6800, L500.2500 ####[facility] [address] [place], [address] MCV (RBC) [Entitic vol] 87.6 fL Normal 81-99 [facility] Comment on above: Performed By: #### L 100.0100, L700.6800, L500.2500 ####[facility] [address] [place], [address] Monocytes/100 WBC (Bld) 5.6 % Normal 0-10 [facility] Comment on above: Performed By: #### L 100.0100, L700.6800, L500.2500 ####[facility] [address] [place], [address] Neutrophils/100 WBC (Bld) 54.5 % Normal 47-70 [facility] Comment on above: Performed By: #### L 100.0100, L700.6800, L500.2500 ####[facility] [address] [place], [address] Nucleated RBC (Bld) [#/Vol] 0 10*3/uL Normal 0-5 [facility] Comment on above: Performed By: #### L 100.0100, L700.6800, L500.2500 ####[facility] [address] [place], [address] Platelet mean volume (Bld) [Entitic vol] 9.9 fL Normal 6.2-12.0 [facility] Comment on above: Performed By: #### L 100.0100, L700.6800, L500.2500 ####[facility] [address] [place], [address] Platelets (Bld) [#/Vol] 320 10*3/uL Normal 150-450 [facility] Comment on above: Performed By: #### L 100.0100, L700.6800, L500.2500 ####[facility] [address] [place], [address] RBC (Bld) [#/Vol] 4.66 10*6/uL Normal 4.2-5.4 [facility] Comment on above: Performed By: #### L 100.0100, L700.6800, L500.2500 ####[facility] [address] [place], [address] RDW SD 43.1 fl Normal 35.1-43.9 [facility] Comment on above: Performed By: #### L 100.0100, L700.6800, L500.2500 ####[facility] [address] [place], [address] WBC (Bld) [#/Vol] 9.5 10*3/uL Normal 4.4-11.0 [facility] Comment on above: Performed By: #### L 100.0100, L700.6800, L500.2500 ####[facility] [address] [place], [address] Emergency Department Summary on 10-13-2023 Emergency Department Summary [facility] Medical Records Department [address] [place] [address] Emergency Department Summary 10/13/23 MR#: [id number] Acct: [id number] Name: CHIKA GOOD Rep #: [id number] : 1970 53 From: Yumiko Muller DO PCP: Dr. Clark Javed MD Status:DEP ER Location: ED HPI History of Present Illness Chief Complaint: Flank Pain Detail of Chief Complaint: Left flank pain Informant: patient Narrative Narrative: Patient presents with lower abdomen left flank pain that started yesterday evening. Similar symptoms in the past related to kidney stone. She complains of urinary frequency and urgency. She is currently on her menstrual period and does not know if she has had hematuria. She denies fevers or chills or sweats. Currently rates her pain a 7 out of 10. No significant nausea or vomiting. [facility] Medical History (Updated 10/13/23 @ 01:[address] Yumiko Muller DO) Hx of renal calculi Wears glasses Rheumatoid arthritis High cholesterol Migraine headache History of hiatal hernia Heartburn Non-smoker Sleep apnea Endocervical polyp Hyperlipemia Psoriasis Dermatitis Abnormal uterine bleeding Abnormal Pap smear of cervix Anxiety Asthma Home Medications ???Medication ???Instructions ???Recorded ???Last Taken ???Type albuterol sulfate 90 mcg/actuation 1 puff inhalation Q6H 06/28/17 12/29/21 History aerosol inhaler (ProAir HFA) fluticasone 250 mcg-salmeterol 50 1 inh inhalation DAILY 06/28/17 Unknown History mcg/dose blistr powdr for inhalation (Advair Diskus) atorvastatin 10 mg tablet (Lipitor) 10 mg PO DAILY 01/24/20 Unknown History dupilumab 300 mg/2 mL subcutaneous 300 mg subcut .COMPLEX 01/24/20 Unknown History pen injector (Dupixent) etonogestrel 0.12 mg-ethinyl 1 vag ring vaginal ONCE 3 weeks #1 05/10/22 Unknown Rx estradiol 0.015 mg/24 hr vaginal ea ring (NuvaRing) psyllium husk 0.4 gram capsule 0.4 g PO DAILY PRN constipation 03/09/23 Unknown History (Daily Fiber) hydrocodone-acetaminophen 5-325mg 1 tab PO Q4H PRN PRN Pain 2 days 10/13/23 Unknown Rx 5mg-325mg #10 TABLETS naproxen 500 mg tablet (Naprosyn) 500 mg PO BID PRN pain #20 tabs 10/13/23 Unknown Rx Allergy/AdvReac Type Severity Reaction Status Date / Time No Known Allergies Allergy Verified 10/13/23 00:05 Family History Father Colon cancer Grandfather Colon cancer paternal Brother Colon cancer Mother Breast cancer, Onset Age: 71 Uncle Colon cancer Grandfather Colon cancer maternal Surgical History Hx of dilation and curettage Hx of tonsillectomy Hx of breast reduction, elective H/O LEEP delivery delivered Social History Smoking Status: Never smoker alcohol intake: current details: social substance use type: does not use caffeine: Yes what type of physical activity do you participate in: walking seatbelt use: always do you feel safe at home: Yes additional social history: 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[place]) Patient 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 at [employer] ROS ROS ED Review of Systems ROS Unobtainable: other Constitutional Constitutional ED: Reports lethargy; Denies chills, fever(s), sweats or weight loss Eyes Eyes: Denies blurry vision, change in vision or diplopia ENT ENT ED: Denies rhinorrhea or sore throat Cardiovascular Cardiovascular: Denies chest pain, orthopnea or racing heartbeat Respiratory/Chest Respiratory/Chest: Denies cough, dyspnea, dyspnea on exertion, orthopnea or sputum Gastrointestinal Gastrointestinal: Reports abdominal pain; Denies diarrhea, nausea or vomiting Genitourinary Genitourinary ED: Denies dysuria, hematuria or urinary frequency Musculoskeletal Musculoskeletal: Reports back pain; Denies arthralgias, myalgias or neck pain Integumentary Denies abscess, Abrasions or rash Neurologic Neurologic: Denies headache(s) or weakness Psychiatric Psychiatric: Denies anxiety, depression or suicidal thoughts Endocrine Endocrinology: Denies polydipsia, polyphagia or polyuria Hematologic/Lymphatic Hematologic/Lymphatic: Denies easy bleeding, easy bruising or lymphadenopathy Allergic/Immunologic Allergic/Immunologic ED: Denies mouth swelling, tongue swelling or urticaria EXAM Physical Exam Const Vital Signs: 10/13/23 00:03 Temperature 97.6 F L Temperature Source Temporal Pulse Rate 87 Respiratory Rate 16 Blood Pressure 126/76 H Blood Pressure Mean 92 Pulse Ox 95 Oxygen Delivery Method Room Air Positive well nourished and well developed General Appearance ED: well developed and NAD HEENT Reports TM's clear and moist mucous membranes normocephalic and atrau (more content not included)... Normal [facility] ,Serum,hCG Quali.on 10-13-2023 HCG, SERUM QUAL Negative Normal [facility] Comment on above: Performed By: #### L 100.0100, L700.6800, L500.2500 ####[facility] [address] [place], [address] Urinalysis, Completeon 10-12 EPI,SQUAMOUS 0-5 SEEN Normal 5-10 [facility] Comment on above: Order Comment: CLEAN CATCH Performed By: #### L 400.0001 #### [facility] [address] [place], [address] RBC 0-5 SEEN Normal 0-5 [facility] Comment on above: Order Comment: CLEAN CATCH Performed By: #### L 400.0001 #### [facility] [address] [place], [address] WBC 0-5 SEEN Normal 0-5 [facility] Comment on above: Order Comment: CLEAN CATCH Performed By: #### L 400.0001 #### [facility] [address] [place], [address] BACTERIA 0 SEEN Normal None Seen [facility] Comment on above: Order Comment: CLEAN CATCH Performed By: #### L 400.0001 #### [facility] [address] [place], [address] Mucus Ql (Urine sed) 0 SEEN Normal [facility] Comment on above: Order Comment: CLEAN CATCH Performed By: #### L 400.0001 #### [facility] [address] [place], [address] CBC W Auto Differential pane l (Bld)on 06-14-2023 Basophils (Bld) [#/Vol] 0.08 10*3/uL <0.11 k/uL [facility] Basophils/100 WBC (Bld) 0.7 % [facility] Differential cell count method Nom (Bld) Auto [facility] Eosinophils (Bld) [#/Vol] 0.31 10*3/uL <0.46 k/uL [facility] Eosinophils/100 WBC (Bld) 2.9 % [facility] Erythrocyte distribution width (RBC) [Ratio] 13.5 % 11.5 - 15.0 % [facility] Hematocrit (Bld) [Volume fraction] 40.5 % 36.0 - 46.0 % [facility] Hemoglobin (Bld) [Mass/Vol] 13.1 g/dL 11.5 - 15.5 g/dL [facility] Immature granulocytes (Bld) [#/Vol] 0.03 10*3/uL <0.10 k/uL [facility] Immature granulocytes/100 WBC (Bld) 0.3 % [facility] Lymphocytes (Bld) [#/Vol] 2.89 10*3/uL 1.00 - 4.00 k/uL [facility] Lymphocytes/100 WBC (Bld) 26.6 % [facility] MCH (RBC) [Entitic mass] 29.4 pg 26.0 - 34.0 pg [facility] MCHC (RBC) [Mass/Vol] 32.3 g/dL 30.5 - 36.0 g/dL [facility] MCV (RBC) [Entitic vol] 90.8 fL 80.0 - 100.0 fL [facility] Monocytes (Bld) [#/Vol] 0.63 10*3/uL <0.87 k/uL [facility] Monocytes/100 WBC (Bld) 5.8 % [facility] Neutrophils (Bld) [#/Vol] 6.92 10*3/uL 1.45 - 7.50 k/uL [facility] Neutrophils/100 WBC (Bld) 63.7 % [facility] Nucleated RBC (Bld) [#/Vol] <0.01 k/uL [facility] Nucleated RBC/100 WBC (Bld) [Ratio] 0.0 /100 WBC [facility] Platelet mean volume (Bld) [Entitic vol] 10.6 fL 9.0 - 12.7 fL [facility] Platelets (Bld) [#/Vol] 324 10*3/uL 150 - 400 k/uL [facility] RBC (Bld) [#/Vol] 4.46 10*6/uL 3.90 - 5.20 m/uL [facility] WBC (Bld) [#/Vol] 10.86 10*3/uL 3.70 - 11.00 k/uL [facility] Comprehensive metabolic 2000 panelon 06-14-2023 Albumin [Mass/Vol] 4.3 g/dL 3.9 - 4.9 g/dL [facility] ALP [Catalytic activity/Vol] 87 U/L 34 - 123 U/L [facility] ALT [Catalytic activity/Vol] 26 U/L 7 - 38 U/L [facility] Anion gap [Moles/Vol] 11 mmol/L 9 - 18 mmol/L [facility] AST [Catalytic activity/Vol] 16 U/L 13 - 35 U/L [facility] Bilirubin [Mass/Vol] 0.3 mg/dL 0.2 - 1.3 mg/dL [facility] Calcium [Mass/Vol] 9.4 mg/dL 8.5 - 10. 2 mg/dL [facility] Chloride [Moles/Vol] 106 mmol/L High 97 - 105 mmol/L [facility] CO2 [Moles/Vol] 24 mmol/L 22 - 30 mmol/L [facility] Creatinine [Mass/Vol] 0.70 mg/dL 0.58 - 0.96 mg/dL [facility] Estimated Glomerular Filtration Rate 105 mL/min/1.73m >=60 mL/min/1.7 3m [facility] Glucose [Mass/Vol] 101 mg/dL High 74 - 99 mg/dL [facility] Potassium [Moles/Vol] 4.1 mmol/L 3.7 - 5.1 mmol/L [facility] Protein [Mass/Vol] 6.7 g/dL 6.3 - 8.0 g/dL [facility] Sodium [Moles/Vol] 141 mmol/L 136 - 144 mmol/L [facility] Urea nitrogen [Mass/Vol] 12 mg/dL 7 - 21 mg/dL [facility] NT PRO BNPon 06-14-2023 Natriuretic peptide.B prohormone N-Terminal [Mass/Vol] <125 pg/mL [facility] XR Chest PA and Lateralon IMPRESSION: No acute radiographic abnormality. Telemetry Rn: DAMARIS Transcribe Date/Time: Jun 14 2023 3:32P Dictated by : TIFFANIE BA MD This examination was interpreted and the report reviewed and electronically signed by: TIFFANIE BA MD on Jun 14 2023 3:33PM [facility] DIVISION OF RADIOLOGY * * *Final Report* * * DATE OF EXAM: Jun 14 2023 10:20AM WOX [id number] - XR CHEST 2V FRONTAL/LAT / PROCEDURE REASON: SOB (shortness of breath) * * * * Physician Interpretation * * * * EXAMINATION: CHEST RADIOGRAPH (2 VIEW FRONTAL & LATERAL) CLINICAL HISTORY: SOB (shortness of breath) MQ: XC2_6 EXAM DATE/TIME: 06/14/2023 10:20 AM COMPARISON: Chest x-ray dated July 07, 2012 RESULT: Lines, tubes, and devices: None. Lungs and pleura: No consolidation. No lung mass. No pleural effusion. No pneumothorax. Cardiomediastinal silhouette: Normal cardiomediastinal silhouette. Bones and soft tissues: Mild degenerative changes. DIVISION OF RADIOLOGY Provider, [facility] - 06/14/2023 * * *Final Report* * * DATE OF EXAM: Jun 14 2023 10:20AM WOX [id number] - XR CHEST 2V FRONTAL/LAT / PROCEDURE REASON: SOB (shortness of breath) * * * * Physician Interpretation * * * * EXAMINATION: CHEST RADIOGRAPH (2 VIEW FRONTAL & LATERAL) CLINICAL HISTORY: SOB (shortness of breath) MQ: XC2_6 EXAM DATE/TIME: 06/14/2023 10:20 AM COMPARISON: Chest x-ray dated July 07, 2012 RESULT: Lines, tubes, and devices: None. Lungs and pleura: No consolidation. No lung mass. No pleural effusion. No pneumothorax. Cardiomediastinal silhouette: Normal cardiomediastinal silhouette. Bones and soft tissues: Mild degenerative changes. IMPRESSION IMPRESSION: No acute radiographic abnormality. Telemetry Rn: PSCB Transcribe Date/Time: Jun 14 2023 3:32P Dictated by : TIFFANIE BA MD This examination was interpreted and the report reviewed and electronically signed by: TIFFANIE BA MD on Jun 14 2023 3:33PM EST [facility] Radiology Study observation (narrative) [facility] XR Chest PA and LateralOrder ed By: [facility] Provider on 06-14-2023 [facility] Genital Culture Comprehensiv kranthi 03-11-2023 VAC Reason for Exam: vag inosis vaginosis Normal vaginal nixon isolated. No yeast, Gardnerella, Neisseria or beta-hemolytic Streptococcus isolated. Normal [facility] Comment on above: Performed By: #### M 100.1999, M100.3200 ####[facility] [id number] [place], [place], [address] Gram Stainon 03-10-2023 GS Reason for Exam: vag inosis vaginosis Gram Stain 1+ White Blood Cells 4+ Gram positive rods No Gram negative diplococci Normal [facility] Comment on above: Performed By: #### M 100.1999, M100.3200 ####[facility] [id number] [place], [address] [facility] Visit Reporton 03-09-2023 [facility] Visit Report [facility] [address] [place] [address] OFFICE VISIT Date of Service: 03/09/23 MR#: [id number] Acct: [id number] Name: CHIKA GOOD Rep #: [id number] : 1970 Provider: CHICHI colmenares Age/Sex: 52/F [place] [facility] [place]: [place] Intake Vital Signs 09/06/22 09:30 03/09/23 09:03 03/09/23 14:49 Height 5 ft 3 in 5 ft 3 in 5 ft 3 in Weight: 229 lb BMI 40.5 BP 136/88 H Blood Pressure Location Lt brachial Position Sitting Intake Visit Reasons: bv? Legislative Analyst Required: No Accompanied by: Self Feel stressed/tense/nervous/anxious/ difficulty sleeping: to some extent Allergies No Known Allergies Allergy (Verified 03/09/23 14:48) Medications albuterol sulfate 90 mcg/actuation aerosol inhaler (ProAir HFA) 1 puff inhalation Q6H 06/28/17 [History Confirmed 03/09/23] fluticasone 250 mcg-salmeterol 50 mcg/dose blistr powdr for inhalation (Advair Diskus) 1 inh inhalation DAILY 06/28/17 [History Confirmed 03/09/23] apremilast 30 mg tablet (Otezla) 30 mg PO ONCE 01/24/20 [History Confirmed 03/09/23] atorvastatin 10 mg tablet (Lipitor) 10 mg PO DAILY 01/24/20 [History Confirmed 03/09/23] dupilumab 300 mg/2 mL subcutaneous pen injector (Dupixent) 300 mg subcut .COMPLEX 01/24/20 [History Confirmed 03/09/23] etonogestrel 0.12 mg-ethinyl estradiol 0.015 mg/24 hr vaginal ring (NuvaRing) 1 vag ring vaginal ONCE 3 weeks #1 ea 05/10/22 [Rx Confirmed 03/09/23] cholecalciferol (vitamin D3) 125 mcg (5,000 unit) capsule 125 mcg PO DAILY 03/09/23 [History Confirmed 03/09/23] psyllium husk 0.4 gram capsule (Daily Fiber) 0.4 g PO DAILY 03/09/23 [History Confirmed 03/09/23] turmeric 400 mg capsule 400 mg PO DAILY 03/09/23 [History Confirmed 03/09/23] PFSH Medical History Abnormal Pap smear of cervix Abnormal uterine bleeding Anxiety Asthma Dermatitis Endocervical polyp Heartburn High cholesterol History of hiatal hernia Hyperlipemia Migraine headache Non-smoker Psoriasis Rheumatoid arthritis Sleep apnea Wears glasses Surgical History delivery delivered H/O LEEP Hx of breast reduction, elective Hx of dilation and curettage Hx of tonsillectomy Family History Father Colon cancer Grandfather Colon cancer paternal Brother Colon cancer Mother Breast cancer, Onset Age: 71 Uncle Colon cancer Grandfather Colon cancer maternal Social History Smoking Status: Never smoker alcohol intake: current details: social substance use type: does not use caffeine: Yes what type of physical activity do you participate in: walking seatbelt use: always do you feel safe at home: Yes additional social history: 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 Details: CHIKA GOOD is a 52 year old who presents for vaginal odor with some burning 3-4 weeks. States feels very dry. Denies STD concerns. Tried OTC monistat without benefit. History 1 Elective abortions Hx Para 1 Spontaneous abortions Hx # Term Pregnancies Ectopic pregnancies Hx # Pregnancies Multiple births # of living children Past Pregnancies Del. Date Name GA/Weeks Outcome Route Bth Weight Gen Labor Lgth Anesthesia Del [facility] Provider FOB Unknown 2007 Courtney 41 live - full term Cliff FLORA Const Constitutional: Reports system reviewed and no additional complaints, except as documented Eyes Eyes: Reports system reviewed and no additional complaints, except as documented GI GI: Denies abdominal pain or change in bowel habits : Reports as per HPI Exam Const General: cooperative and no acute distress Orientation: oriented x3 General: bladder normal to palpation External Female Exam: normal external appearance and normal appearance of the urethra Urethra: normal appearance of the urethra Speculum Exam - Vagina: normal appearance of the vagina, normal vaginal discharge (no odor noted. Nuvaring in place), no lesions and nontender Speculum Exam - Cervix: normal appearance of the cervix and other (smooth, nonfriable) Bimanual Exam- Vagina Uterus: normal bimanual exam, uterine size normal, bladder normal to palpation, uterine shape normal, uterine mobility normal and non-tender Bimanual Exam- Adnexa, other: normal adnexae, no masses and non-tender Coding Level of Care Code Off vis,est,level 3 Diagnoses Vaginal odor N89.8 Assessment and Plan Assessment and Plan (1) Vaginal odor: Status: Acute Comment: culture sent Medications: (more content not included)... [facility] SCRN MAMM (CAD)W/CHERRI BILATo n 01-12-2023 SCRN MAMM (CAD)W/CHERRI BILAT [facility] Imaging Services [address] [place] [address] SCRN MAMM (CAD)W/CHERRI BILAT MR#: [id number] Acct: [id number] Name: CHIKA GOOD Rep #: [id number] : 1970 F 52 From: Garett phillips MD PCP: Dr. Clark Javed MD Status: [facility] Study: SCRN MAMM (CAD)W/CHERRI BILAT Date of Exam: 04/05 Exam# [id number] Ordering Dr: Keyonna Lainez [id number] MAMMOGRAPHY - BILATERAL SCREENING REASON FOR EXAM: Female, 52 years old. Routine annual screening examination. PERTINENT HISTORY: Mother with breast cancer. Bilateral breast reduction surgery. TECHNIQUE: Digital bilateral breast cherri (3D mammographic acquisition) in the CC and MLO projections. 2-D mediolateral oblique (MLO) and craniocaudad (CC) views of both breasts were obtained. CAD: Full Field Digital Mammography with Computer Added Detection was performed. COMPARISON: Comparison is made with prior study dated November 23, 2011 and outside examination dated July 03, 2019. ____ FINDINGS: Breast Composition: The breasts are heterogeneously dense, which may obscure small masses. There are no dominant masses or suspicious calcifications. No other significant abnormalities are identified. There has been no significant change since the prior study. ____ BI/SCRN MAMM (CAD)W/CHERRI BILAT IMPRESSION: Stable bilateral screening mammogram. Yearly follow-up mammogram recommended. (A) ____ ASSESSMENT CATEGORY: BIRADS Category 2: Benign. A letter regarding these results will be sent to the patient by the facility within 30 days. Approximately 10% of breast cancers are not detected by mammography. A normal mammogram should not delay biopsy of a clinically suspicious abnormality. [id number] Electronically Signed: Garett Maharaj MD at 11:13 EDT , CC: Dr. Clark Javed MD; Dr. Keyonna Lainez MD Telemetry Rn: Signed Normal [facility] Gram stain for investigation of transfusion reactionOrdered By: Dr. Lainez on 07-13-2022 Microscopic observation Gram stain Nom (Unsp spec) [facility] Gram stain for investigation of transfusion reactionOrdered By: Keyonna Lainez on 07-12-2022 Microscopic observation Gram stain Nom (Unsp spec) [facility] Thin prep Papanicolaou smear with manual screeningOrdered By: Keyonna Lainez on 07-12-2022 Genital Culture Presumptive C albicans [facility] Cervical or vagninal specime n microscopic examination by cytology stain (reported asOrdered By: Dr. Lainez on 05-10-2022 Cytology report Cyto stain Doc (Cvx/Vag) Comment . [facility] Comment on above: The Pap smear is a s creening test designed to aid in thedetection of premalignant and malignant conditions of theuterine cervix. It is not a diagnostic procedure andshould not be used as the sole means of detecting cervicalcancer. Both false-positive and false-negative reports dooccur. Detection in cervical specim en of any of human papilloma virus (HPV) 16, 18, 31, 33,Ordered By: Dr. Lainez on 05-10-2022 HPV 16+18+31+33+35+39+4 5+51+52+56+58+59+66 +68 DNA Probe+sig amp Ql (Cvx) Negative Negative [facility] Comment on above: This nucleic acid am plification test detects fourteen high- risk HPV types (16,18,31,33,35,39,45,51,52,56,58,59,66,68)without differentiation. Laboratory - CytologyOrdered By: Dr. Lainez on 05-10-2022 Trade Recruiter Cyto stain Nom (Cvx/Vag) [ID] Comment . [facility] Comment on above: China chapman, Rn Cardiac (ASCP) Laboratory - Miscellaneous t estsOrdered By: Dr. Lainez on 05-10-2022 Service comment (Unsp spec) [Interp] Comment . [facility] Comment on above: This liquid based Th inPrep(R) pap test was screened withthe use of an image guided system. Service comment (Unsp spec) [Interp] . . [facility] Liquid-based cerv Pap + CT/G C by DIANE w reflex to high-risk HPV for ASCUSOrdered By: Dr. Lainez on 05-10-2022 Cytology report Cyto stain.thin prep Doc (Cvx/Vag) Comment . [facility] Comment on above: Criteria not met, HP V Genotype not performed.Performed at: [facility] [id number] Director: Suzette Grover MD, Phone: [phone] at: =[facility] - [facility] [id number] Director: Suzette Grover MD, Phone: [phone] No Panel InformationOrdered By: Dr. Lainez on 05-10-2022 Pathology report final diagnosis Narrative Comment . [facility] Comment on above: NEGATIVE FOR INTRAEP ITHELIAL LESION OR MALIGNANCY. Absolute lymphocyte countOrd ered By: Dr. Wallis on 01-26-2022 Lymphocytes Auto (Unsp spec) [#/Vol] 2.27 10*3/uL 0.83-4.51 [facility] Basophil percentageOrdered B y: Dr. Wallis on 01-26-2022 Basophils/100 WBC (Bld) 0.5 % 0-1 [facility] Bilirubin [Mass/Vol] 0.30 mg/dL 0.20-1.00 [facility] Comment on above: For patients on eltr ombopag therapy, use of Dimension [place] TBIL is not recommended. Chloride [Moles/Vol] 105 mmol/L 98-107 [facility] Cholesterol [Mass/Vol] 258 mg/dL <200 [facility] Comment on above: <200 mg/dL Desirable 200-240 mg/dL Borderline >240 mg/dL High Risk Eosinophils/100 WBC (Bld) 4.0 % 0-5 [facility] Glucose [Mass/Vol] 84 mg/dL 74-106 [facility] Neutrophils (Bld) [#/Vol] 5.2 10*3/uL 2.0-7.7 [facility] Neutrophils/100 WBC (Bld) 61.4 % 47-70 [facility] Potassium [Moles/Vol] 4.1 mmol/L 3.5-5.1 [facility] Protein [Mass/Vol] 7.4 g/dL 6.4-8.2 [facility] Sodium [Moles/Vol] 137 mmol/L 136-145 [facility] Triglyceride [Mass/Vol] 189 mg/dL <199 [facility] Comment on above: The drugs N-Acetylcy steine and Metamizole may falsely depress this assay.Serum Triglycerides Reference Interval Normal <150 mg/dL Borderline high 150 - 199 mg/dL High 200 - 499 mg/dL Very High > or = 500 mg/dL WBC (Bld) [#/Vol] 8.5 10*3/uL 4.4-11.0 [facility] Blood erythrocytes count (nu mber/volume)Ordered By: Dr. Wallis on 01-26-2022 RBC (Bld) [#/Vol] 4.69 10*6/uL 4.2-5.4 [facility] Blood hemoglobin measurement (mass/volume)Ordered By: Dr. Wallis on 01-26-2022 Hemoglobin (Bld) [Mass/Vol] 14.0 g/dL 12.0-15.0 [facility] Blood lymphocytes/100 leukoc ytesOrdered By: Dr. Wallis on 01-26-2022 Lymphocytes/100 WBC (Bld) 26.6 % 19-41 [facility] Blood monocytes/100 leukocyt esOrdered By: Dr. Wallis on 01-26-2022 Monocytes/100 WBC (Bld) 7.3 % 0-10 [facility] Blood platelet mean volumeOr dered By: Dr. Wallis on 01-26-2022 Platelet mean volume (Bld) [Entitic vol] 10.6 fL 6.2-12.0 [facility] Determination of erythrocyte mean corpuscular volume (MCV)Ordered By: Dr. Wallis on 01-26-2022 MCV (RBC) [Entitic vol] 89.6 fL 81-99 [facility] Direct bilirubinOrdered By: Dr. Wallis on 01-26-2022 Bilirubin.direct [Mass/Vol] 0.07 mg/dL 0.00-0.30 [facility] Hematocrit Auto (Bld) [Volum e fraction]Ordered By: Dr. Wallis on 01-26-2022 Hematocrit (Bld) [Volume fraction] 42.0 % 37-47 [facility] Laboratory - Chemistry and C hemistry - challengeOrdered By: Dr. Wallis on 01-26-2022 ALP [Catalytic activity/Vol] 73 U/L 45-117 [facility] ALT [Catalytic activity/Vol] 26 U/L 13-56 [facility] CO2 [Moles/Vol] 22.0 mmol/L 21.0-32.0 [facility] Globulin (S) [Mass/Vol] 3.6 g/dL 2.2-4.2 [facility] Urea nitrogen/Creatinine [Mass ratio] 11.0 mg/mg 10-20 [facility] Laboratory - Hematology and Cell countsOrdered By: Dr. Wallis on 01-26-2022 Erythrocyte distribution width (RBC) [Entitic vol] 43.9 fL 35.1-43.9 [facility] Erythrocyte distribution width (RBC) [Ratio] 13.6 % 11.6-14.6 [facility] Immature granulocytes/100 WBC (Bld) 0.200 % 0.0-0.9 [facility] Comment on above: IG% - Immature Granu locytes (promyelocytes, myelocytes and metamyelocytes) > 1% indicates that a LEFT SHIFT is Present. MCH (RBC) [Entitic mass] 29.9 pg 27.0-32.0 [facility] Nucleated RBC/100 WBC (Bld) [Ratio] 0 % 0-5 [facility] MCHC Auto (RBC) [Mass/Vol]Or dered By: Dr. Wallis on 01-26-2022 MCHC (RBC) [Mass/Vol] 33.3 g/dL 32-36 [facility] No Panel InformationOrdered By: Dr. Wallis on 01-26-2022 Estimated GFR (MDRD) Amer 108 mL/min >60 [facility] Comment on above: GFR Calc Estimated GFR (MDRD) Non-Af Amer 90 mL/min >60 [facility] Comment on above: Non- GFR Calc Platelets bldOrdered By: Dr. Wallis on 01-26-2022 Platelets (Bld) [#/Vol] 294 10*3/uL 150-450 [facility] Qualitative QuantiFERON-TB g old in tube testOrdered By: Dr. Wallis on 01-26-2022 M. tuberculosis tuberculin stim IFN-g Ql (Bld) 0.02 IU/mL . [facility] Serum or plasma albumin naa urement (mass/volume)Ordered By: Dr. Wallis on 01-26-2022 Albumin [Mass/Vol] 3.8 g/dL 3.2-5.0 [facility] Serum or plasma calcium naa urement (mass/volume)Ordered By: Dr. Wallis on 01-26-2022 Calcium [Mass/Vol] 8.9 mg/dL 8.5-10.1 [facility] Serum or plasma cholesterol in HDL measurement (mass/volume)Ordered By: Dr. Wallis on 01-26-2022 Cholesterol in HDL [Mass/Vol] 44 mg/dL >40 [facility] Comment on above: The drugs N-Acetylcy steine and Metamizole may falsely depress this assay. Reference Range HDL <40 mg/dL Low HDL Cholesterol HDL >or= 60 mg/dL High HDL Cholesterol Serum or plasma cholesterol in VLDL measurement (mass/volume)Ordered By: Dr. Wallis on 01-26-2022 Cholesterol in VLDL [Mass/Vol] 38 mg/dL 5-40 [facility] Serum or plasma creatinine m easurement (mass/volume)Ordered By: Dr. Wallis on 01-26-2022 Creatinine [Mass/Vol] 0.73 mg/dL 0.55-1.02 [facility] Comment on above: The validity of the calculated GFR & GFRAA in patients over 70 years has not been determined. Clinical correlation is essential. Serum or plasma low density lipoprotein (LDL) cholesterol measurement (mass/volume)Ordered By: Dr. Wallis on 01-26-2022 Cholesterol in LDL [Mass/Vol] 176 mg/dL 0-130 [facility] Serum or plasma urea nitroge n measurement (mass/volume)Ordered By: Dr. Wallis on 01-26-2022 Urea nitrogen [Mass/Vol] 8 mg/dL 7-18 [facility] Thin prep Papanicolaou smear with manual screeningOrdered By: Dr. Wallis on 01-26-2022 Thin prep Papanicolaou smear with manual screening 12 U/L 15-37 [facility] Thin prep Papanicolaou smear with manual screening 10 5-15 [facility] Thin prep Papanicolaou smear with manual screening Comment . [facility] Comment on above: QuantiFERON-TB Gold Plus is a qualitative indirect test forM tuberculosis infection (including disease) and isintended for use in conjunction with risk assessment,radiography, and other medical and diagnostic evaluations.The QuantiFERON-TB Gold Plus result is determined bysubtracting the Nil value from either TB antigen (Ag)value. The Mitogen tube serves as a control for the test. Thin prep Papanicolaou smear with manual screening 0.03 IU/mL . [facility] Thin prep Papanicolaou smear with manual screening > 10.00 IU/mL . [facility] Thin prep Papanicolaou smear with manual screening Negative Negative [facility] Comment on above: No response to M tub erculosis antigens detected.Infection with M tuberculosis is unlikely, but high riskindividuals should be considered for additional testing(ATS/IDSA/CDC Clinical Practice Guidelines, 2017). Thereference range is an Antigen minus Nil result of <0.35IU/mL.The specimen received for QuantiFERON testing was incubatedby the ordering institution. Specific procedures outlinedin our Directory of Services and in the package insert forthe QuantiFERON Gold (In Tube) test must be followed toenable for proper stimulation of cells for the productionof interferon gamma. Chemiluminescence immunoassaymethodologyPerformed at: [facility] [address] [id number] Director: Sebastián Bullard PhD, Phone: [phone] Laboratory - Chemistry and C hemistry - challengeon 12-29-2021 HCG ( test) Ql (U) Negative [facility] Work Phone: [phone] Comment on above: Very dilute urine sp ecimens, as indicated by a low specificgravity, may not contain contact center representative levels of hCG. If is still suspected, a first morning urinespecimen should be collected 48 hours later and tested. Absolute lymphocyte counton 12-25-2021 Lymphocytes Auto (Unsp spec) [#/Vol] 1.65 10*3/uL 0.83-4.51 [facility] Work Phone: Basophil percentageon 2021 Basophils/100 WBC (Bld) 0.9 % 0-1 [facility] Work Phone: Eosinophils/100 WBC (Bld) 1.5 % 0-5 [facility] Work Phone: Neutrophils (Bld) [#/Vol] 3.4 10*3/uL 2.0-7.7 [facility] Work Phone: Neutrophils/100 WBC (Bld) 57.0 % 47-70 [facility] Work Phone: WBC (Bld) [#/Vol] 5.9 10*3/uL 4.4-11.0 [facility] Work Phone: Blood erythrocytes count (nu mber/volume)on 12-25-2021 RBC (Bld) [#/Vol] 4.34 10*6/uL 4.2-5.4 [facility] Work Phone: Blood hemoglobin measurement (mass/volume)on 12-25-2021 Hemoglobin (Bld) [Mass/Vol] 13.2 g/dL 12.0-15.0 [facility] Work Phone: Blood lymphocytes/100 leukoc yteson 12-25-2021 Lymphocytes/100 WBC (Bld) 28.1 % 19-41 [facility] Work Phone: Blood monocytes/100 leukocyt eson 12-25-2021 Monocytes/100 WBC (Bld) 12.2 % 0-10 [facility] Work Phone: [phone] Blood platelet mean volumeon 12-25-2021 Platelet mean volume (Bld) [Entitic vol] 9.9 fL 6.2-12.0 [facility] Work Phone: Determination of erythrocyte mean corpuscular volume (MCV)on 12-25-2021 MCV (RBC) [Entitic vol] 91.5 fL 81-99 [facility] Work Phone: [phone] Hematocrit Auto (Bld) [Volum e fraction]on 12-25-2021 Hematocrit (Bld) [Volume fraction] 39.7 % 37-47 [facility] Work Phone: [phone] Laboratory - Hematology and Cell countson 12-25-2021 Erythrocyte distribution width (RBC) [Entitic vol] 46.4 fL 35.1-43.9 [facility] Work Phone: [phone] Erythrocyte distribution width (RBC) [Ratio] 13.8 % 11.6-14.6 [facility] Work Phone: [phone] Immature granulocytes/100 WBC (Bld) 0.300 % 0.0-0.9 [facility] Work Phone: [phone] Comment on above: IG% - Immature Granu locytes (promyelocytes, myelocytes and metamyelocytes) > 1% indicates that a LEFT SHIFT is Present. MCH (RBC) [Entitic mass] 30.4 pg 27.0-32.0 [facility] Work Phone: [phone] Nucleated RBC/100 WBC (Bld) [Ratio] 0 % 0-5 [facility] Work Phone: [phone] MCHC Auto (RBC) [Mass/Vol]on 12-25-2021 MCHC (RBC) [Mass/Vol] 33.2 g/dL 32-36 [facility] Work Phone: [phone] Platelets bldon 12-25-2021 Platelets (Bld) [#/Vol] 286 10*3/uL 150-450 [facility] Work Phone: [phone] Gram stain for investigation of transfusion reaction Microscopic observation Gram stain Nom (Unsp spec) [facility] Work Phone: Thin prep Papanicolaou smear with manual screening Genital Culture Negative [facility] Work Phone: Vital Signs Date Time Vital Sign Value Performing Clinician Facility 07-16-2024 08:22-0400 Body mass index (BMI) [Ratio] 30.07 kg/m2 Latrice Etienne 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.[employer] Work Phone: [facility] 07-16-2024 08:22-0400 Body weight 77 kg Latrice Etienne 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.[employer] Work Phone: [facility] 07-16-2024 08:22-0400 Diastolic blood pressure 64 mm[Hg] Latrice Etienne 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.[employer] Work Phone: [facility] 07-16-2024 08:22-0400 Heart rate 73 /min Latrice Etienne 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.[employer] Work Phone: [facility] 07-16-2024 08:22-0400 Systolic blood pressure 96 mm[Hg] Latrice Etienne 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.[employer] Work Phone: [facility] 07-10-2024 14:05-0400 Body mass index (BMI) [Ratio] 29.76 kg/m2 Kailyn Givens MD Work Phone: [facility] 07-10-2024 14:05-0400 Body weight 76.2 kg Kailyn Givens MD Work Phone: [facility] 07-10-2024 14:05-0400 Diastolic blood pressure 60 mm[Hg] Kailyn Givens MD Work Phone: [facility] 07-10-2024 14:05-0400 Heart rate 81 /min Kailyn Givens MD Work Phone: [facility] 07-10-2024 14:05-0400 SaO2% (BldA) [Mass fraction] 97 % Kailyn Givens MD Work Phone: [facility] 07-10-2024 14:05-0400 Systolic blood pressure 120 mm[Hg] Kailyn Givens MD Work Phone: [facility] 06-12-2024 09:55-0400 Body height 160 cm Anay Bisler-Diogo 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.[employer] Work Phone: [facility] 06-12-2024 09:55-0400 Body mass index (BMI) [Ratio] 30.11 kg/m2 Anay Bisler-Diogo 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.[employer] Work Phone: [facility] 06-12-2024 09:55-0400 Body weight 77.11 kg Anay Bisler-Diogo 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.[employer] Work Phone: [facility] 05-21-2024 08:23-0400 Body height 160 cm Hannah Bolaños MD Work Phone: [facility] 05-21-2024 08:23-0400 Body mass index (BMI) [Ratio] 30.47 kg/m2 Hannah Bolaños MD Work Phone: [facility] 05-21-2024 08:23-0400 Body temperature 97.2 [degF] Hannah Bolaños MD Work Phone: [facility] 05-21-2024 08:23-0400 Body weight 78.02 kg Hannah Bolaños MD Work Phone: [facility] 05-21-2024 08:23-0400 Diastolic blood pressure 68 mm[Hg] Hannah Bolaños MD Work Phone: [facility] 05-21-2024 08:23-0400 Heart rate 84 /min Hannah Bolaños MD Work Phone: [facility] 05-21-2024 08:23-0400 SaO2% (BldA) [Mass fraction] 97 % Hannah Bolaños MD Work Phone: [facility] 05-21-2024 08:23-0400 Systolic blood pressure 111 mm[Hg] Hannah Bolaños MD Work Phone: [facility] 05-11-2024 15:15-0500 Diastolic blood pressure 78 mm[Hg] Naya Pepe MD Work Phone: [facility] 05-11-2024 15:15-0500 Heart rate 86 /min Naya Pepe MD Work Phone: [facility] 05-11-2024 15:15-0500 Respiratory rate 20 /min Naya Pepe MD Work Phone: [facility] 05-11-2024 15:15-0500 SaO2% (BldA) [Mass fraction] 98 % Naya Pepe MD Work Phone: [facility] 05-11-2024 15:15-0500 Systolic blood pressure 126 mm[Hg] Naya Pepe MD Work Phone: [facility] 05-09-2024 08:07-0500 Diastolic blood pressure 60 mm[Hg] Clark Javed MD Work Phone: [facility] 05-09-2024 08:07-0500 Heart rate 86 /min Clark Javed MD Work Phone: [facility] 05-09-2024 08:07-0500 Respiratory rate 18 /min Clark Javed MD Work Phone: [facility] 05-09-2024 08:07-0500 Systolic blood pressure 98 mm[Hg] Clark Javed MD Work Phone: [facility] 04-09-2024 08:43-0500 Body mass index (BMI) [Ratio] 31 kg/m2 Kailyn Givens MD Work Phone: [facility] 04-09-2024 08:43-0500 Body weight 79.38 kg Kailyn Givens MD Work Phone: [facility] 04-09-2024 08:43-0500 Diastolic blood pressure 74 mm[Hg] Kailyn Givens MD Work Phone: [facility] 04-09-2024 08:43-0500 Heart rate 92 /min Kailyn Givens MD Work Phone: [facility] 04-09-2024 08:43-0500 SaO2% (BldA) [Mass fraction] 98 % Kailyn Givens MD Work Phone: [facility] 04-09-2024 08:43-0500 Systolic blood pressure 124 mm[Hg] Kailyn Givens MD Work Phone: [facility] 01-25-2024 10:35-0500 Body height 160 cm Naya Pepe MD Work Phone: [facility] 01-25-2024 10:35-0500 Body mass index (BMI) [Ratio] 33.48 kg/m2 Naya Pepe MD Work Phone: [facility] 01-25-2024 10:35-0500 Body temperature 97.7 [degF] Naya Pepe MD Work Phone: [facility] 01-25-2024 10:35-0500 Body weight 85.73 kg Naya Pepe MD Work Phone: [facility] 01-25-2024 10:35-0500 Diastolic blood pressure 66 mm[Hg] Naya Pepe MD Work Phone: [facility] 01-25-2024 10:35-0500 Heart rate 86 /min Naya Pepe MD Work Phone: [facility] 01-25-2024 10:35-0500 Respiratory rate 12 /min Naya Pepe MD Work Phone: [facility] 01-25-2024 10:35-0500 SaO2% (BldA) [Mass fraction] 98 % Naya Pepe MD Work Phone: [facility] 01-25-2024 10:35-0500 Systolic blood pressure 110 mm[Hg] Naya Pepe MD Work Phone: [facility] 01-03-2024 13:07-0400 Body height 160 cm Clark Javed MD Work Phone: [facility] 01-03-2024 13:07-0400 Body mass index (BMI) [Ratio] 34.19 kg/m2 Clark Javed MD Work Phone: [facility] 01-03-2024 13:07-0400 Body weight 87.54 kg Clark Javed MD Work Phone: [facility] 01-03-2024 13:07-0400 Diastolic blood pressure 78 mm[Hg] Clark Javed MD Work Phone: [facility] 01-03-2024 13:07-0400 Heart rate 80 /min Clark Javed MD Work Phone: [facility] 01-03-2024 13:07-0400 Respiratory rate 16 /min Clark Javed MD Work Phone: [facility] 01-03-2024 13:07-0400 Systolic blood pressure 108 mm[Hg] Clark Javed MD Work Phone: [facility] 01-03-2024 09:39-0400 Body mass index (BMI) [Ratio] 34.01 kg/m2 Kailyn Givens MD Work Phone: [facility] 01-03-2024 09:39-0400 Body weight 87.09 kg Kailyn Givens MD Work Phone: [facility] 01-03-2024 09:39-0400 Diastolic blood pressure 66 mm[Hg] Kailyn Givens MD Work Phone: [facility] 01-03-2024 09:39-0400 Heart rate 86 /min Kailyn Givens MD Work Phone: [facility] 01-03-2024 09:39-0400 SaO2% (BldA) [Mass fraction] 98 % Kailyn Givens MD Work Phone: [facility] 01-03-2024 09:39-0400 Systolic blood pressure 112 mm[Hg] Kailyn Givens MD Work Phone: [facility] 11-25-2023 15:42-0400 Body height 160 cm Naya Pepe MD Work Phone: [facility] 11-25-2023 15:42-0400 Body mass index (BMI) [Ratio] 35.36 kg/m2 Naya Pepe MD Work Phone: [facility] 11-25-2023 15:42-0400 Body temperature 96.91 [degF] Naya Pepe MD Work Phone: [facility] 11-25-2023 15:42-0400 Body weight 90.54 kg Naya Pepe MD Work Phone: [facility] 11-25-2023 15:42-0400 Diastolic blood pressure 74 mm[Hg] Naya Pepe MD Work Phone: [facility] 11-25-2023 15:42-0400 Heart rate 101 /min Naya Pepe MD Work Phone: [facility] 11-25-2023 15:42-0400 SaO2% (BldA) [Mass fraction] 97 % Naya Pepe MD Work Phone: [facility] 11-25-2023 15:42-0400 Systolic blood pressure 118 mm[Hg] Naya Pepe MD Work Phone: [facility] 10-20-2023 11:51-0400 Body mass index (BMI) [Ratio] 35.07 kg/m2 Kailyn Givens MD Work Phone: [facility] 10-20-2023 11:51-0400 Body weight 89.81 kg Kailyn Givens MD Work Phone: [facility] 10-20-2023 11:51-0400 Diastolic blood pressure 64 mm[Hg] Kailyn Givens MD Work Phone: [facility] 10-20-2023 11:51-0400 Systolic blood pressure 110 mm[Hg] Kailyn Givens MD Work Phone: [facility] 10-20-2023 08:23-0400 Body height 160 cm Naya Pepe MD Work Phone: [facility] 10-20-2023 08:23-0400 Body mass index (BMI) [Ratio] 35.73 kg/m2 Naya Pepe MD Work Phone: [facility] 10-20-2023 08:23-0400 Body weight 91.5 kg Naya Pepe MD Work Phone: [facility] 10-20-2023 08:23-0400 Diastolic blood pressure 71 mm[Hg] Naya Pepe MD Work Phone: [facility] 10-20-2023 08:23-0400 Heart rate 77 /min Naya Pepe MD Work Phone: [facility] 10-20-2023 08:23-0400 SaO2% (BldA) [Mass fraction] 98 % Naya Pepe MD Work Phone: [facility] 10-20-2023 08:23-0400 Systolic blood pressure 105 mm[Hg] Naya Pepe MD Work Phone: [facility] 08-29-2023 16:25-0400 Body mass index (BMI) [Ratio] 32.69 kg/m2 Kailyn Givens MD Work Phone: [facility] 08-29-2023 16:25-0400 Body weight 97.52 kg Kailyn Givens MD Work Phone: [facility] 08-29-2023 16:25-0400 Diastolic blood pressure 78 mm[Hg] Kailyn Givens MD Work Phone: [facility] 08-29-2023 16:25-0400 Heart rate 73 /min Kailyn Givens MD Work Phone: [facility] 08-29-2023 16:25-0400 SaO2% (BldA) [Mass fraction] 97 % Kailyn Givens MD Work Phone: [facility] 08-29-2023 16:25-0400 Systolic blood pressure 118 mm[Hg] Kailyn Givens MD Work Phone: [facility] 07-12-2023 08:16-0400 Body mass index (BMI) [Ratio] 34.06 kg/m2 Kailyn Givens MD Work Phone: [facility] 07-12-2023 08:16-0400 Body weight 101.61 kg Kailyn Givens MD Work Phone: [facility] 07-12-2023 08:16-0400 Diastolic blood pressure 68 mm[Hg] Kailyn Givens MD Work Phone: [facility] 07-12-2023 08:16-0400 Heart rate 80 /min Kailyn Givens MD Work Phone: [facility] 07-12-2023 08:16-0400 SaO2% (BldA) [Mass fraction] 96 % Kailyn Givens MD Work Phone: [facility] 07-12-2023 08:16-0400 Systolic blood pressure 110 mm[Hg] Kailyn Givens MD Work Phone: [facility] 06-14-2023 09:43-0400 Diastolic blood pressure 72 mm[Hg] Latrice Etienne APRN.[employer] Work Phone: [facility] 06-14-2023 09:43-0400 Heart rate 82 /min Latrice Etienne APRN.[employer] Work Phone: [facility] 06-14-2023 09:43-0400 Respiratory rate 16 /min Latrice Etienne 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.[employer] Work Phone: [facility] 06-14-2023 09:43-0400 Systolic blood pressure 116 mm[Hg] Latrice Etienne APRN.[employer] Work Phone: [facility] 05-30-2023 15:14-0400 Body height 172.7 cm Kailyn Givens MD Work Phone: [facility] 05-30-2023 15:14-0400 Body weight 106.14 kg Kailyn Givens MD Work Phone: [facility] 05-30-2023 15:14-0400 Diastolic blood pressure 68 mm[Hg] Kailyn Givens MD Work Phone: [facility] 05-30-2023 15:14-0400 Heart rate 84 /min Kailyn Givens MD Work Phone: [facility] 05-30-2023 15:14-0400 SaO2% (BldA) [Mass fraction] 96 % Kailyn Givens MD Work Phone: [facility] 05-30-2023 15:14-0400 Systolic blood pressure 110 mm[Hg] Kailyn Givens MD Work Phone: [facility] 04-18-2023 09:24-0500 Body weight 103.87 kg Latrice Etienne 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.[employer] Work Phone: [facility] 04-18-2023 09:24-0500 Diastolic blood pressure 72 mm[Hg] Latrice Etienne APRN.[employer] Work Phone: [facility] 04-18-2023 09:24-0500 Heart rate 84 /min Latrice Etienne APRN.[employer] Work Phone: [facility] 04-18-2023 09:24-0500 Respiratory rate 14 /min Latrice Etienne APRN.[employer] Work Phone: [facility] 04-18-2023 09:24-0500 Systolic blood pressure 104 mm[Hg] Latrice Etienne 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.[employer] Work Phone: [facility] 09-27-2022 09:50-0400 Body temperature 97.2 [degF] Manny Kendrick MD Work Phone: [facility] 09-27-2022 09:50-0400 Body weight 97.98 kg Manny Kendrick MD Work Phone: [facility] 09-27-2022 09:50-0400 Diastolic blood pressure 68 mm[Hg] Manny Kendrick MD Work Phone: [facility] 09-27-2022 09:50-0400 Heart rate 86 /min Manny Kendrick MD Work Phone: [facility] 09-27-2022 09:50-0400 Respiratory rate 16 /min Manny Kendrick MD Work Phone: [facility] 09-27-2022 09:50-0400 SaO2% (BldA) [Mass fraction] 97 % Manny Kendrick MD Work Phone: [facility] 09-27-2022 09:50-0400 Systolic blood pressure 102 mm[Hg] Manny Kendrick MD Work Phone: [facility] 09-06-2022 09:30-0400 Body height 160.[address] Clark Javed Work Phone: [facility] 09-06-2022 09:30-0400 Body weight 98.[address] Clark Javed Work Phone: 3(216)825-119674 [place] [address] 07-12-2022 10:14-0400 Body height 160.[address] Clark Javed Work Phone: 9(930)865-351674 [place] [address] 07-12-2022 10:13-0400 Diastolic blood pressure 74 mm[Hg] Dr. Clark Javed Work Phone: [facility] 07-12-2022 10:13-0400 Systolic blood pressure 121 mm[Hg] Dr. Clark Javed Work Phone: 4(470)222-636074 [place] [address] 06-28-2022 14:42-0400 Body height 160.[address] Clark Javed Work Phone: 2(731)147-434731 [place] [address] 06-28-2022 14:42-0400 Body weight 97.[address] Clark Javed Work Phone: 1(537)411-387231 [place] [address] 05-31-2022 12:33-0400 Body height 160.[address] Clark Javed Work Phone: 5(650)512-577931 [place] [address] 05-31-2022 12:33-0400 Body weight 97.[address] Clark Javed Work Phone: 8(789)986-860231 [place] [address] 05-10-2022 10:01-0500 Body height 160.[address] Clark Javed Work Phone: 6(973)451-210431 [place] [address] 05-10-2022 09:51-0500 Body mass index (BMI) [Ratio] 37.9 kg/m2 Dr. Clark Javed Work Phone: 4(899)626-376531 [place] [address] 05-10-2022 09:51-0500 Body weight 97.[address] Clark Javed Work Phone: 9(938)846-699331 [place] [address] 03-24-2022 09:01-0500 Body mass index (BMI) [Ratio] 37.2 kg/m2 Dr. Clark Javed Work Phone: 8(778)531-444531 [place] [address] 03-24-2022 09:01-0500 Body weight 95.[address] Clark Javed Work Phone: 7(294)854-105931 [place] [address] 03-24-2022 09:01-0500 Diastolic blood pressure 78 mm[Hg] Dr. Clark Javed Work Phone: 1(030)281-971831 [place] [address] 03-24-2022 09:01-0500 Systolic blood pressure 116 mm[Hg] Dr. Clark Javed Work Phone: 7(467)375-377631 [place] [address] 02-23-2022 11:22-0500 Body mass index (BMI) [Ratio] 36.5 kg/m2 Dr. Clark Javed Work Phone: 9(984)471-989031 [place] [address] 02-23-2022 11:22-0500 Body weight 93.[address] Clark Javed Work Phone: 8(047)405-387531 [place] [address] 02-23-2022 11:22-0500 Diastolic blood pressure 78 mm[Hg] Dr. Clark Javed Work Phone: [facility] 02-23-2022 11:22-0500 Systolic blood pressure 113 mm[Hg] Dr. Clark Javed Work Phone: [facility] 01-15-2022 11:55-0400 Body height 160.[address] Clark Javed Work Phone: [facility] Work Phone: 01-15-2022 11:55-0400 Diastolic blood pressure 67 mm[Hg] Dr. Clark Javed Work Phone: [facility] Work Phone: 01-15-2022 11:55-0400 Systolic blood pressure 109 mm[Hg] Dr. Clark Javed Work Phone: [facility] Work Phone: 12-29-2021 11:22-0400 Body temperature 99.2 [degF] Dr. Clark Javed Work Phone: [facility] Work Phone: 12-29-2021 11:22-0400 Diastolic blood pressure 70 mm[Hg] Dr. Clark Javed Work Phone: [facility] Work Phone: 12-29-2021 11:22-0400 Heart rate 74 /min Dr. Clark Javed Work Phone: [facility] Work Phone: 12-29-2021 11:22-0400 Respiratory rate 16 /min Dr. Clark Javed Work Phone: [facility] Work Phone: 12-29-2021 11:22-0400 SaO2% (BldA) [Mass fraction] 91 % Dr. Clark Javed Work Phone: [facility] Work Phone: 12-29-2021 11:22-0400 Systolic blood pressure 106 mm[Hg] Dr. Clark Javed Work Phone: [facility] Work Phone: 12-29-2021 09:00-0400 Body height 160.[address] Clark Javed Work Phone: [facility] Work Phone: 12-29-2021 09:00-0400 Body mass index (BMI) [Ratio] 38.1 kg/m2 Dr. Clark Javed Work Phone: [facility] Work Phone: 12-29-2021 09:00-0400 Body weight 97.[address] Clark Javed Work Phone: [facility] Work Phone: 11-26-2021 11:01-0400 Body mass index (BMI) [Ratio] 37.9 kg/m2 Dr. Clark Javed Work Phone: [facility] Work Phone: 11-26-2021 11:01-0400 Body weight 97.[address] Clark Javed Work Phone: [facility] Work Phone: 11-26-2021 11:01-0400 Diastolic blood pressure 75 mm[Hg] Dr. Clark Javed Work Phone: [facility] Work Phone: 11-26-2021 11:01-0400 Systolic blood pressure 116 mm[Hg] Dr. Clark Javed Work Phone: [facility] [facility] Work Phone: 10-26-2021 13:37-0400 Body height 159 cm Abbey Smith PA-C Work Phone: [facility] 10-26-2021 13:37-0400 Body temperature 98.01 [degF] Abbey Smith PA-C Work Phone: [facility] 10-26-2021 13:37-0400 Body weight 96.16 kg Abbey Smith PA-C Work Phone: [facility] 10-26-2021 13:37-0400 Diastolic blood pressure 86 mm[Hg] Abbey Smith PA-C Work Phone: [facility] 10-26-2021 13:37-0400 Heart rate 110 /min Abbey Smith PA-C Work Phone: [facility] 10-26-2021 13:37-0400 Respiratory rate 16 /min Abbey Smith PA-C Work Phone: [facility] 10-26-2021 13:37-0400 Systolic blood pressure 106 mm[Hg] Abbey Smith PA-C Work Phone: [facility] 09-01-2021 07:09-0400 Body height 160 cm Abbey Smith PA-C Work Phone: [facility] 09-01-2021 07:09-0400 Body temperature 97.9 [degF] Abbey Smith PA-C Work Phone: [facility] 09-01-2021 07:09-0400 Body weight 95.25 kg Abbey Smith PA-C Work Phone: [facility] 09-01-2021 07:09-0400 Diastolic blood pressure 76 mm[Hg] Abbey Smith PA-C Work Phone: [facility] 09-01-2021 07:09-0400 Heart rate 72 /min Abbey Smith PA-C Work Phone: [facility] 09-01-2021 07:09-0400 Respiratory rate 18 /min Abbey Smith PA-C Work Phone: [facility] 09-01-2021 07:09-0400 Systolic blood pressure 100 mm[Hg] Abbey Smith PA-C Work Phone: [facility] Encounters Encounter Date Encounter Type Care Provider Facility Start: 10-05-2024 End: 10-05-2024 [facility] Facility:[facility] Start: 09-17-2024 End: 09-17-2024 Nursing evaluation of patient and report Mi Nurse [facility] Phone[facility] Comment on above: Encounter for immuni zation (Primary Dx) Start: 09-17-2024 End: 09-17-2024 [facility] Facility:[facility] Start: 08-03-2024 End: 08-03-2024 [facility] Facility:[facility] Start: 07-19-2024 End: 07-19-2024 Telephone encounter Clark Javed MD Work Phone: [facility] [place] Comment on above: Orders Start: 07-17-2024 End: 07-17-2024 Follow-up encounter Latrice Etienne APRN.CNP Work Phone: [facility] [place] Start: 07-16-2024 End: 07-16-2024 [facility] Facility:[facility] Start: 07-16-2024 Encounter for antibo dy response examination LATRICE ETIENNE [facility] Start: 07-16-2024 End: 07-16-2024 Patient encounter procedure Latrice Etienne APRN.CNP Work Phone: [facility] [place] Comment on above: Immunity status test ing (Primary Dx); Encounter for immunization; Motion sickness, initial encounter Start: 07-16-2024 End: 07-16-2024 Patient encounter status Latrice Etienne APRN.CNP Work Phone: [facility] Work Phone: Start: 07-10-2024 End: 07-10-2024 ambulatory KAILYN GIVENS Facility:[facility] Start: 07-10-2024 End: 07-10-2024 Patient encounter procedure Kailyn Givens MD Work Phone: OB/Gynecology Comment on above: LITO (obstructive sle ep apnea) (Primary Dx); Hyperinsulinemia; Insulin resistance; Vitamin D deficiency; Gastroesophageal reflux disease without esophagitis; Hypercholesteremia; Class 2 severe obesity with serious comorbidity and body mass index (BMI) of 35.0 to 35.9 in adult, unspecified obesity type (HCC); Diarrhea, unspecified type Start: 07-05-2024 End: 07-06-2024 ambulatory HANNAH BOLAÑOS Facility:[facility] Start: 06-25-2024 End: 08-25-2024 Follow-up encounter Hannah Bolaños MD Work Phone: Colorectal Surgery Start: 06-21-2024 End: 06-21-2024 ambulatory CLARK JAVED Facility:[facility] Start: 06-12-2024 End: 06-12-2024 ambulatory CLARK JAVED Facility:[facility] Start: 06-12-2024 End: 06-12-2024 Patient encounter procedure Anay Barclay 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.REPAIRER SHOE STICKS Work Phone: Colorectal Surgery Comment on above: Pre-op exam (Primary Dx); Anorectal fistula; Anal fistula; Encounter for screening colonoscopy Start: 06-12-2024 End: 06-12-2024 Preprocedural examination done Anay Barclay 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.REPAIRER SHOE STICKS Work Phone: [facility] Work Phone: Start: 06-11-2024 End: 06-11-2024 ambulatory CLARK JAVED Facility:[facility] Start: 05-21-2024 End: 05-21-2024 Admission to same day surgery center Hannah Bolaños MD Work Phone: Colorectal Surgery Comment on above: Patient Education Start: 05-21-2024 End: 05-21-2024 Patient encounter procedure Hannah Bolaños MD Work Phone: Colorectal Surgery Comment on above: Anorectal fistula (P rimary Dx); Family history of colon cancer Start: 05-21-2024 End: 05-21-2024 ambulatory Hannah Bolaños MD Work Phone: Colorectal Surgery Start: 05-19-2024 End: 05-19-2024 Chart abstracting Regis Fonseca RN Colorectal Surgery Start: 05-11-2024 End: 05-11-2024 ambulatory NAYA PEPE Facility:[facility] Start: 05-11-2024 End: 05-11-2024 Patient encounter procedure Naya Pepe MD Work Phone: General Surgery Comment on above: Grade II hemorrhoids (Primary Dx); Hemorrhoids, unspecified hemorrhoid type Start: 05-09-2024 End: 05-09-2024 ambulatory CLARK JAVED Facility:[facility] Start: 05-09-2024 End: 05-09-2024 Patient encounter procedure Clark Javed MD Work Phone: [facility] Comment on above: Rectal itching (Prim evelyn Dx); Fistula Start: 05-08-2024 End: 05-08-2024 ambulatory Lakisha Cruz MA [facility] [place] Start: 05-08-2024 End: 05-08-2024 E-mail encounter from caregiver Lakisha Rajat [facility] Start: 04-09-2024 End: 04-09-2024 ambulatory CLARK JAVED Facility:[facility] Start: 04-09-2024 End: 04-09-2024 Patient encounter procedure Kailyn Givens MD Work Phone: OB/Gynecology Comment on above: Hyperinsulinemia (Pr imary Dx); Insulin resistance; LITO (obstructive sleep apnea); Vitamin D deficiency; Gastroesophageal reflux disease without esophagitis; Hypercholesteremia; Class 2 severe obesity with serious comorbidity and body mass index (BMI) of 35.0 to 35.9 in adult, unspecified obesity type (HCC) Start: 03-23-2024 End: 03-23-2024 Telephone encounter Kailyn Givens MD Work Phone: OB/Gynecology Comment on above: Insurance Authorizat ion Start: 03-22-2024 End: 03-30-2024 Admission to same day surgery center Naya Pepe MD Work Phone: General Surgery Comment on above: Discomfort one month post op Start: 03-22-2024 End: 03-30-2024 ambulatory Naya Pepe MD Work Phone: General Surgery Start: 02-24-2024 End: 02-24-2024 Refill Kailyn Givens MD Work Phone: OB/Gynecology Comment on above: Refill Request Start: 02-21-2024 End: 02-21-2024 ambulatory CLARK JAVDE Facility:[facility] Start: 02-02-2024 End: 02-02-2024 Telephone encounter Clark Javed MD Work Phone: [facility] Comment on above: Results Start: 02-01-2024 End: 02-01-2024 ambulatory CLARK JAVED Facility:[facility] Start: 01-29-2024 End: 01-31-2024 [facility] Get Medical Advice Kailyn Givens MD Work Phone: OB/Gynecology Comment on above: Zepbound refill Start: 01-27-2024 End: 02-02-2024 Telephone encounter Asiya Dupont RN Pre Anesthesia Comment on above: Medication Problem Insurance Authorizat ion Start: 01-25-2024 End: 06-12-2024 Telephone encounter Naya Pepe MD Work Phone: General Surgery Comment on above: Patient Update; hemo rrhoidectomy Start: 01-25-2024 End: 01-25-2024 ambulatory CLARK JAVED Facility:[facility] Start: 01-25-2024 End: 01-25-2024 Patient encounter procedure Naya Pepe MD Work Phone: General Surgery Comment on above: Grade II hemorrhoids (Primary Dx) Start: 01-17-2024 End: 01-17-2024 Telephone encounter Abbey Smith PA-C Work Phone: [facility] [place] Comment on above: Results Start: 01-16-2024 End: 01-16-2024 ambulatory CLARK JAVED Facility:[facility] Start: 01-16-2024 End: 01-16-2024 Subsequent hospital visit by physician Screen Mammo [facility] Comment on above: Encounter for screen ing mammogram for breast cancer [Z12.31] Start: 01-03-2024 Encounter for genera l adult medical examination without abnormal findings CLARK JAVED [facility] Start: 01-03-2024 End: 01-03-2024 Patient encounter status Clark Javed MD Work Phone: [facility] Start: 01-03-2024 End: 01-03-2024 ambulatory CLARK JAVED Facility:[facility] Start: 01-03-2024 End: 01-03-2024 ambulatory CLARK JAVED Facility:[facility] Start: 01-03-2024 End: 01-03-2024 Patient encounter procedure Kailyn Givens MD Work Phone: OB/Gynecology Comment on above: Hyperinsulinemia (Pr imary Dx); Insulin resistance; LITO (obstructive sleep apnea); Vitamin D deficiency; Gastroesophageal reflux disease without esophagitis; Hypercholesteremia; Class 2 severe obesity with serious comorbidity and body mass index (BMI) of 35.0 to 35.9 in adult, unspecified obesity type (HCC) Well adult exam (Tiffanie sukumar Dx); Hyperlipidemia, mixed; GERD without esophagitis; Moderate persistent asthma without complication; Chronic tension-type headache, intractable; Depression, unspecified depression type; Anxiety; Obesity (BMI 35.0-39.9 without comorbidity); LITO (obstructive sleep apnea); Encounter for screening mammogram for breast cancer; Encounter for screening for diabetes mellitus; Encounter for immunization Start: 12-28-2023 End: 12-28-2023 ambulatory CLARK JAVED Facility:[facility] Start: 12-28-2023 End: 12-28-2023 Patient encounter procedure Naya Pepe MD Work Phone: General Surgery Comment on above: Hemorrhoids, unspeci fied hemorrhoid type (Primary Dx) Start: 12-14-2023 ambulatory [facility] Facility: [facility] Start: 12-01-2023 End: 12-01-2023 ambulatory [facility] Facility:[facility] Start: 11-25-2023 End: 11-25-2023 ambulatory CLARK JAVED Facility:[facility] Start: 11-25-2023 End: 11-25-2023 Patient encounter procedure Naya Pepe MD Work Phone: General Surgery Comment on above: Hemorrhoids, unspeci fied hemorrhoid type (Primary Dx) Start: 11-17-2023 End: 11-17-2023 Chart abstracting Clark Javed MD Work Phone: [facility] Comment on above: Outside Procedure (Lab/) Start: 11-17-2023 End: 11-17-2023 ambulatory [facility] Facility:[facility] Start: 11-11-2023 End: 11-11-2023 Refill Abbey Smith PA-C Work Phone: [facility] Comment on above: Refill Request Start: 11-04-2023 End: 11-04-2023 Telephone encounter Kailyn Givens MD Work Phone: OB/Gynecology Comment on above: Medication Problem Start: 10-28-2023 End: 10-31-2023 Telephone encounter Libby Goodman APRN.CNP Work Phone: Neurology Comment on above: Orders Start: 10-24-2023 Chart abstracting Lakisha Cruz MA [facility] Comment on above: Results (X-ray /) Start: 10-20-2023 End: 10-20-2023 ambulatory CLARK JAVED Facility:[facility] Start: 10-20-2023 End: 10-20-2023 Patient encounter procedure Kailyn Givens MD Work Phone: OB/Gynecology Comment on above: Hyperinsulinemia (Pr imary Dx); Insulin resistance; LITO (obstructive sleep apnea); Vitamin D deficiency; Gastroesophageal reflux disease without esophagitis; Hypercholesteremia; Class 2 severe obesity with serious comorbidity and body mass index (BMI) of 35.0 to 35.9 in adult, unspecified obesity type (HCC); Drug-induced nausea and vomiting Start: 10-20-2023 End: 10-20-2023 ambulatory CLARK JAVED Facility:[facility] Start: 10-20-2023 End: 10-20-2023 Patient encounter procedure Naya Pepe MD Work Phone: General Surgery Comment on above: Hemorrhoids, unspeci fied hemorrhoid type Start: 10-18-2023 End: 10-18-2023 ambulatory Jyotsna Mcwilliams Facility:[facility] Start: 10-13-2023 Chart abstracting Clark butterfield MD Work Phone: [facility] Comment on above: ER Discharge Summary Start: 10-13-2023 End: 10-13-2023 Emergency department patient visit Clark Javed Facility:[facility] Start: 09-28-2023 ambulatory Latrice lamb 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.REPAIRER SHOE STICKS Work Phone: [facility] Start: 09-28-2023 Patient encounter procedure Latrice Etienne 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.REPAIRER SHOE STICKS Work Phone: [facility] Comment on above: Referral Start: 09-09-2023 Telephone encounter Libby fleming APRN.REPAIRER SHOE STICKS Work Phone: Neurology Comment on above: Patient Question Start: 09-06-2023 End: 09-06-2023 ambulatory Libby Goodman APRN.REPAIRER SHOE STICKS Work Phone: Neurology Comment on above: Obstructive sleep ap melonie (Primary Dx); Intolerance of continuous positive airway pressure (CPAP) ventilation Start: 09-06-2023 End: 09-06-2023 Telemedicine consultation with patient Libby Goodman MIRACLE.REPAIRER SHOE STICKS Work Phone: Neurology Start: 08-29-2023 End: 08-29-2023 Patient encounter procedure Kailyn Givens MD Work Phone: OB/Gynecology Comment on above: Hyperinsulinemia (Pr imary Dx); Insulin resistance; LITO (obstructive sleep apnea); Vitamin D deficiency; Gastroesophageal reflux disease without esophagitis; Hypercholesteremia; Class 2 severe obesity with serious comorbidity and body mass index (BMI) of 35.0 to 35.9 in adult, unspecified obesity type (HCC) Start: 08-12-2023 Refill Kailyn Givens MD Work Phone: OB/Gynecology Comment on above: Refill Request Start: 07-12-2023 End: 07-12-2023 Patient encounter procedure Kailyn Givens MD Work Phone: OB/Gynecology Comment on above: Hyperinsulinemia (Pr imary Dx); LITO (obstructive sleep apnea); Vitamin D deficiency; Gastroesophageal reflux disease without esophagitis; Hypercholesteremia; Weight gain; Class 2 severe obesity with serious comorbidity and body mass index (BMI) of 35.0 to 35.9 in adult, unspecified obesity type (HCC) Start: 06-30-2023 Telephone encounter Latrice antoine APRN.REPAIRER SHOE STICKS Work Phone: [facility] [place] Comment on above: Results Start: 06-16-2023 Telephone encounter Latrice antoine APRN.REPAIRER SHOE STICKS Work Phone: [facility] [place] Comment on above: Results Start: 06-14-2023 Telephone encounter Latrice antoine APRN.REPAIRER SHOE STICKS Work Phone: [facility] [place] Comment on above: Results Start: 06-14-2023 End: 06-14-2023 Subsequent hospital visit by physician Xr [facility] [place] Work Phone: Radiology Comment on above: SOB (shortness of br eath) [R06.02] Start: 06-14-2023 End: 06-14-2023 Patient encounter procedure Latrice Etienne APRN.REPAIRER SHOE STICKS Work Phone: [facility] Comment on above: SOB (shortness of br eath) (Primary Dx); Peripheral edema Start: 05-30-2023 End: 05-30-2023 Patient encounter procedure Kailyn Givens MD Work Phone: OB/Gynecology Comment on above: LITO (obstructive sle ep apnea) (Primary Dx); Vitamin D deficiency; Gastroesophageal reflux disease without esophagitis; Hypercholesteremia; Weight gain; Class 2 severe obesity with serious comorbidity and body mass index (BMI) of 35.0 to 35.9 in adult, unspecified obesity type (HCC); Screening for diabetes mellitus; Screening for metabolic disorder Start: 05-13-2023 Refill Clark ross MD Work Phone: [facility] Comment on above: Refill Request Start: 04-20-2023 ambulatory Latrice lamb APRN.REPAIRER SHOE STICKS Work Phone: [facility] Comment on above: Lab Work Results Start: 04-18-2023 End: 04-18-2023 Patient encounter procedure Latrice Etienne APRN.CNP Work Phone: [facility] Comment on above: Hemorrhoids, unspeci fied hemorrhoid type (Primary Dx); Hyperlipidemia, mixed; GERD without esophagitis; Moderate persistent asthma without complication; LITO (obstructive sleep apnea); Weight gain; Class 3 severe obesity with body mass index (BMI) of 40.0 to 44.9 in adult, unspecified obesity type, unspecified whether serious comorbidity present (HCC) Start: 03-09-2023 End: 03-09-2023 ambulatory Erin Oxbow SUPERVISING FLOORPERSON [place] Start: 03-09-2023 End: 03-09-2023 ambulatory [facility] SUPERVISING FLOORPERSON Facility:[facility] Start: 01-12-2023 Chart abstracting Clark butterfield MD Work Phone: [facility] Comment on above: Outside mammogram Start: 01-12-2023 End: 01-12-2023 ambulatory [facility] Work Phone: Start: 01-12-2023 End: 01-12-2023 Patient encounter procedure [facility] Work Phone: Start: 01-12-2023 End: 01-12-2023 ambulatory Keyonna Fatou Facility:[facility] Start: 11-03-2022 ambulatory Clark ross MD Work Phone: Internal Medicine [facility] Start: 11-01-2022 Patient encounter status Ibrahima Javed MD Work Phone: [facility] Work Phone: Start: 09-27-2022 End: 09-27-2022 Patient encounter procedure Manny Kendrick MD Work Phone: [facility] Comment on above: Traveler's diarrhea (Primary Dx) Start: 09-06-2022 End: 09-10-[address] Clark Javed Work Phone: [facility] Work Phone: Start: 09-06-2022 End: 09-10-[address] [facility] Work [facility] Start: 07-12-2022 End: 07-12-[address] Clark Javed Work Phone: [facility] Work Phone: Start: 07-12-2022 End: 07-12-[address] Clark Javed Work Phone: [facility]-Laboratory, Specimen Start: 07-12-2022 End: 07-12-[address] Clark Javed Work Phone: [facility] Start: 06-28-2022 End: 07-11-[address] Clark Javed Work Phone: [facility] Work Phone: Start: 06-28-2022 End: 07-11-[address] [facility] Start: 05-31-2022 End: 06-11-[address] Clark Javed Work Phone: [facility] Work Phone: Start: 05-31-2022 End: 06-11-[address] [facility] Start: 05-17-2022 Chart abstracting Clark butterfield MD Work Phone: [facility] [place] Comment on above: Results, Lab; Reinforced Steel Placing Supervisor Ex am (PAP/HPV /) Start: 05-10-2022 End: 05-10-[address] Clark Javed Work Phone: [facility] Work Phone: Start: 05-10-2022 End: 05-10-[address] Clark Javed Work Phone: [facility]-Laboratory, Specimen Start: 05-10-2022 End: 05-10-[address] Clark Javed Work Phone: [facility] Start: 05-06-2022 Telephone encounter Abbey Judy parekh PA-C Work Phone: [facility] Comment on above: Results (Labs) Start: 05-04-2022 Telephone encounter Abbey Judy parekh PA-C Work Phone: [facility] Comment on above: Results Start: 04-20-2022 Refill Clark ross MD Work Phone: [facility] Comment on above: Refill Request Start: 03-24-2022 End: 03-24-[address] Clark Javed Work Phone: [facility] Start: 02-23-2022 End: 02-23-[address] Clark Javed Work Phone: [facility] Start: 01-26-2022 End: 01-26-[address] Clark Javed Work Phone: [facility] Work Phone: Start: 01-26-2022 End: 01-26-[address] Clark Javed Work Phone: [facility] Start: 01-15-2022 End: 01-15-[address] Clark Javed Work Phone: [facility] Start: 12-29-2021 Non-patient / Non-visit Dr. Saravanan Javed Work Phone: [facility] Start: 12-29-2021 End: 12-29-2021 Admission to same day surgery center Dr. Clark Javed Work Phone: [facility] Start: 12-29-2021 End: 12-29-[address] Clark Javed Work Phone: [facility] Work Phone: Start: 12-02-2021 ambulatory Clark ross MD Work Phone: Internal Medicine [facility] [place] Start: 11-26-2021 End: 11-26-[address] Clark Javed Work Phone: [facility]-Laboratory, Specimen Start: 11-26-2021 End: 11-26-[address] Clark Javed Work Phone: [facility] Start: 10-30-2021 Telephone encounter Abbey parekh PA-C Work Phone: [facility] Comment on above: Results Start: 10-29-2021 Telephone encounter Abbey parekh PA-C Work Phone: [facility] Comment on above: Results Start: 10-29-2021 End: 10-29-2021 Subsequent hospital visit by physician [facility] Work Phone: Radiology Comment on above: Lower abdominal pain [R10.30] Start: 10-27-2021 Telephone encounter Abbey BEARD-Sy Work Phone: [facility] Comment on above: Results Start: 10-26-2021 End: 10-26-2021 Patient encounter procedure Abbey Smith PA-C Work Phone: [facility] Comment on above: Well adult exam (Tiffanie sukumar Dx); Hyperlipidemia, mixed; LITO (obstructive sleep apnea); GERD without esophagitis; Abnormal urine odor; Lower abdominal pain; Dyspareunia in female; Chronic tension-type headache, intractable; Depression, unspecified depression type; Anxiety; Obesity (BMI 35.0-39.9 without comorbidity) Start: 10-26-2021 End: 10-26-2021 Patient encounter status Abbey Smith PA-C Work Phone: [facility] [place] Start: 09-23-2021 Refill Abbey Marquez on PA-C Work Phone: [facility] [place] Comment on above: Refill Request Start: 09-01-2021 End: 09-01-2021 Patient encounter procedure Abbey Luis PA-C Work Phone: [facility] [place] Comment on above: Memory changes (Prim evelyn Dx); Attention and concentration deficit; Hyperlipidemia, mixed Start: 01-21-2020 Patient encounter status Sridhar keller Luis PA-C Work Phone: [facility] Work Phone: Procedures Date Procedure Procedure Detail Performing Clinician Start: 06-21-2024 Colonoscopy Kailyn Givens MD Work Phone: Start: 02-01-2024 Lipid 1996 panel - S nik or Plasma Clark Javed MD Work Phone: Start: 06-14-2023 Radiologic exam ches t 2 views Latrice Etienne 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.REPAIRER SHOE STICKS Work Phone: Start: 04-18-2023 Lipid 1996 panel - S nik or Plasma Latrice Etienne 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.REPAIRER SHOE STICKS Work Phone: Start: 01-12-2023 Screening mammography Start: 11-01-2022 Lipid 1996 panel - S nik or Plasma Clark Javed MD Work Phone: Start: 07-12-2022 Cytopathology proced ure, preparation of smear, genital source Dr. Clark Javed Work Phone: Start: 07-12-2022 Investigation of transfusion reaction Dr. Clark Javed Work Phone: Start: 12-29-2021 Hysteroscopy,D&C Sym [place] (Not Applicable) Dr. Clark Javed Work Phone: Start: 02-04-2020 Colonoscopy Abbey parekh PA-C Work Phone: Start: 10-06-2018 Mammography Abbey parekh PA-C Work Phone: Cytopathology proced ure, preparation of smear, genital source Dr. Clark Javed Work Phone: Investigation of transfusion reaction Dr. Clark Javed Work Phone: Investigation of transfusion reaction Dr. Clark Javed Work Phone: Plan of Treatment Date Care Activity Detail Author Start: 11-01-2032 Urine microalbumin profile [facility] Start: 06-21-2029 Screening for malignant neoplasm of colon [facility] Start: 01-31-2029 Lipid panel Lipid Screening [facility] Start: 04-18-2028 Lipid panel Lipid Screening [facility] Start: 11-02-2027 Lipid 1996 panel - Serum or Plasma Lipid Screening [facility] Start: 11-02-2027 Lipid panel Lipid Screening [facility] Start: 11-02-2027 LIPID SCREEN LIPID SCREEN [facility] Start: 05-22-2027 Diabetes Screening Diabetes Screening [facility] Start: 05-10-2027 HPV TESTING HPV TESTING [facility] Start: 05-10-2027 PAP TESTING PAP TESTING [facility] Start: 05-10-2027 Screening for malignant neoplasm of cervix [facility] Start: 05-03-2027 LIPID SCREEN LIPID SCREEN [facility] Start: 01-31-2027 Diabetes Screening Diabetes Screening [facility] Start: 10-26-2026 LIPID SCREEN LIPID SCREEN [facility] Start: 06-13-2026 Diabetes Screening Diabetes Screening [facility] Start: 04-18-2026 Diabetes Screening Diabetes Screening [facility] Start: 03-03-2026 LIPID SCREEN LIPID SCREEN [facility] Start: 11-01-2025 DIABETES SCREEN DIABETES SCREEN [facility] Start: 11-01-2025 Diabetes Screening Diabetes Screening [facility] Start: 07-16-2025 Annual PCP Team Chronic Disease Visit Annual PCP Team Chronic Disease Visit [facility] Start: 05-09-2025 Annual PCP Team Chronic Disease Visit Annual PCP Team Chronic Disease Visit [facility] Start: 05-03-2025 DIABETES SCREEN DIABETES SCREEN [facility] Start: 02-04-2025 End: 02-04-2025 Nursing evaluation of patient and report 02/04/2025 8:15 AM EST Nurse Visit Family Medicine Michelle Velzi [place] [id number] Nurse De Jose Alfredo [place] [id number] Hep B #3 Family Medicine Michelle Comment on above: Hep B #3 Start: 02-03-2025 Colonoscopy COLONOSCOPY [facility] Start: 02-03-2025 COLORECTAL CANCER SCREENING COLORECTAL CANCER SCREENING [facility] Start: 02-03-2025 Screening for malignant neoplasm of colon [facility] Start: 01-15-2025 Hepb vaccine adult 3 dose schedule for im use HEP B VACCINE, 3-DOSE, AGE 20+ YR (ENGERIX-B, RECOMBIVAX HB) Immunization/Injection Routine Need for vaccination Expected: 01/15/2025 (Approximate) [facility] Comment on above: Expected: 01/15/2025 (Approximate) Start: 01-15-2025 Screening for malignant neoplasm of breast Mammogram Screening [facility] Start: 01-07-2025 End: 01-07-2025 Patient encounter procedure Family Medicine Michelle Comment on above: Physical Start: 01-02-2025 Annual PCP Team Chronic Disease Visit Annual PCP Team Chronic Disease Visit [facility] Start: 12-03-2024 End: 12-03-2024 Patient encounter procedure 12/03/2024 8:50 AM EDT Office Visit OB/Gynecology [address] [place] [address] Kailyn Gill MD [address] [place] [address] weight management follow up OB/Gynecology Comment on above: weight management follow up Start: 11-12-2024 Influenza [facility] Start: 10-31-2024 End: 10-31-2024 Patient encounter procedure 10/31/2024 2:30 PM EDT Office Visit OB/Gynecology [address] [place] [address] Kailyn Gill MD [address] [place] [address] yearly OB/Gynecology Comment on above: yearly Start: 10-26-2024 DIABETES SCREEN DIABETES SCREEN [facility] Start: 09-17-2024 End: 09-17-2024 Nursing evaluation of patient and report [facility] Medicine Michelle Comment on above: 2nd shingles shot 2nd shingles shot/He p B #2 Start: 09-14-2024 Hzv zoster vacc recombinant adjuvanted im njx ZOSTER VACCINE, RECOMBINANT (SHINGRIX) Immunization/Injection Routine Encounter for immunization Expected: 09/14/2024 [facility] Comment on above: Expected: 09/14/2024 Start: 09-10-2024 Shingrix Vaccine (2 of 2) Shingrix Vaccine (2 of 2) [facility] Start: 08-22-2024 End: 08-22-2024 Patient encounter procedure 08/22/2024 8:20 AM EDT Office Visit OB/Gynecology [address] [id number] Kailyn Gill MD [address] [place] [id number] yearly OB/Gynecology Comment on above: yearly Start: 08-19-2024 Hepb vaccine adult 3 dose schedule for im use HEP B VACCINE, 3-DOSE, AGE 20+ YR (ENGERIX-B, RECOMBIVAX HB) Immunization/Injection Routine Need for vaccination Expected: 08/19/2024 (Approximate) [facility] Comment on above: Expected: 08/19/2024 (Approximate) Start: 08-03-2024 End: 08-03-2024 Nursing evaluation of patient and report 08/03/2024 3:45 PM EDT Nurse Visit Family Royce Martinez [address] [place] [address] Nurse, De [address] [place] [address] MMR booster and HEP B [facility] [place] Comment on above: MMR booster and HEP B Start: 07-16-2024 End: 10-15-2024 Hepatitis B virus surface Ab [Presence] in Serum [facility] Comment on above: Expected: 07/16/2024, Expires: Start: 07-16-2024 End: 10-15-2024 Measles virus IgG Ab [Units/volume] in Serum [facility] Work Phone: Comment on above: Expected: 07/16/2024, Expires: Start: 07-16-2024 End: 10-15-2024 MUMPS IGG AB [facility] Comment on above: Expected: 07/16/2024, Expires: Start: 07-16-2024 End: 10-15-2024 RUBELLA IGG ANTIBODY [facility] Comment on above: Expected: 07/16/2024, Expires: Start: 07-16-2024 End: 07-16-2024 Patient encounter procedure 07/16/2024 8:20 AM EDT Office Visit [facility] [address] [place] [address] Latrice Etienne APRN.[employer] [address] [place] [address] Vaccine Inquiry (Shingles, Measles) [facility] Comment on above: Vaccine Inquiry (Shingles, Measles) Start: 07-12-2024 End: 07-12-2024 Patient encounter procedure 07/12/2024 2:30 PM EDT Office Visit OB/Gynecology [address] [place] [address] Kailyn Gill MD [address] [place] [address] yearly OB/Gynecology Comment on above: yearly Start: 07-10-2024 End: 07-10-2024 Patient encounter procedure 07/10/2024 2:00 PM EDT Office Visit OB/Gynecology [address] [place] [address] Kailyn Gill MD [address] [place] [address] weight management follow up OB/Gynecology Comment on above: weight management follow up Start: 07-05-2024 End: 07-05-2024 Patient encounter procedure 07/05/2024 1:00 PM EDT Office Visit Colorectal Surgery [address] [address] Anay Barclay APRN.[employer] [address] [place] [address] hemorrhoids Colorectal Surgery Comment on above: hemorrhoids Start: 06-21-2024 End: 06-21-2024 Admission to same day surgery center 06/21/2024 9:19 AM EDT - 06/21/2024 12:19 PM EDT Surgery Admitting [address] [place] [address] Hannah Bolaños MD [address] [place] [address] EXAM UNDER ANESTHESIA RECTAL Admitting Comment on above: EXAM UNDER ANESTHESIA RECTAL Start: 06-21-2024 End: 06-21-2024 Anrct xm surg req anes general spi/edrl dx EXAM UNDER ANESTHESIA RECTAL Anorectal fistula 06/21/2024 9:19 AM EDT [facility] Start: 06-21-2024 End: 06-21-2024 Colonoscopy w/biopsy single/multiple COLONOSCOPY WITH BIOPSY Anorectal fistula 06/21/2024 9:19 AM EDT [facility] Start: 06-21-2024 End: 06-21-2024 Placement seton PLACEMENT OF SETON Anorectal fistula 06/21/2024 9:19 AM EDT [facility] Start: 06-21-2024 Subsequent hospital visit by physician 06/21/2024 9:19 AM EDT Hospital Encounter Admitting [address] [place] [address] Hannah Bolaños MD [address] [place] [address] Anorectal fistula [K60.50] Admitting Comment on above: Anorectal fistula [K60.50] Start: 06-21-2024 End: 06-21-2024 Surg tx anal fistula subq FISTULOTOMY ANAL SUBCUTANEOUS Anorectal fistula 06/21/2024 9:19 AM EDT [facility] Start: 06-13-2024 Annual PCP Team Chronic Disease Visit Annual PCP Team Chronic Disease Visit [facility] Start: 06-11-2024 End: 06-11-2024 Patient encounter procedure 06/11/2024 10:45 AM EDT Office [place] [id number] PRE OP [facility] Comment on above: PRE OP Start: 05-21-2024 End: 05-21-2024 Patient encounter procedure 05/21/2024 8:30 AM EDT Office Visit Colorectal Surgery [address] [address] Hannah Bolaños MD [address] [place] [address] Grade II hemorrhoids Colorectal Surgery Comment on above: Grade II hemorrhoids Start: 05-11-2024 End: 05-11-2024 Patient encounter procedure 05/11/2024 3:00 PM EST Office Visit General Surgery [address] [place] [address] Naya Pepe MD [address] [place], [place] [id number] F/U rectal itching, appt. per RG & Dr. Javed recommendation [facility] General Surgery Comment on above: F/U rectal itching, appt. per RG & Dr. Leesa hendrickson recommendation [facility] Start: 05-09-2024 End: 05-09-2024 Patient encounter procedure 05/09/2024 8:00 AM EST Office Visit Family Medicine Michelle [address] [place] [address] Clark Javed MD [address] [facility], [place] [phone] Rectal Itching [facility] [place] Comment on above: Rectal Itching Start: 04-18-2024 Annual PCP Team Chronic Disease Visit Annual PCP Team Chronic Disease Visit [facility] Start: 04-09-2024 End: 04-09-2024 Patient encounter procedure 04/09/2024 8:50 AM EST Office Visit OB/Gynecology [address] [place] [address] Kailyn Gill MD [address] [place] [address] weight management f/u OB/Gynecology Comment on above: weight management f/u Start: 03-03-2024 DIABETES SCREEN DIABETES SCREEN [facility] Start: 02-21-2024 End: 02-21-2024 Admission to same day surgery center [facility] Surgery Comment on above: HEMORRHOIDECTOMY EXTERNAL AND INTERNAL S ZAY COLUMN/GROUP Start: 02-21-2024 End: 02-21-2024 Hemorrhoid ntrnl & xtrnl 1 column w/fissurecto HEMORRHOIDECTOMY EXTERNAL AND INTERNAL SINGLE COLUMN/GROUP W/ FISSURECTOMY Grade II hemorrhoids 02/21/2024 9:45 AM EST ME OR Start: 02-21-2024 Subsequent hospital visit by physician [facility] Surgery Comment on above: Grade II hemorrhoids [K64.1] Start: 01-25-2024 End: 01-25-2024 Patient encounter procedure 01/25/2024 10:30 AM EST Office Visit General Surgery [address] [place] [address] Naya Pepe MD [address] [address] DISCUSS HEMORROID SURGERY General Surgery Comment on above: DISCUSS HEMORROID SURGERY Start: 01-16-2024 End: 01-16-2024 Patient encounter procedure 01/16/2024 2:10 PM EST Appointment Mammogram [address] [place] [address] Encounter for screening mammogram for breast cancer [Z12.31] Mammogram Comment on above: Encounter for screening mammogram for br east cancer [Z12.31] Start: 01-13-2024 Mammography Mammogram Screening [facility] Start: 01-13-2024 Screening for malignant neoplasm of breast Mammogram Screening [facility] Start: 01-03-2024 End: 04-03-2024 Comprehensive metabolic 2000 panel - Serum or Plasma COMPREHENSIVE METABOLIC PANEL Lab Routine Hyperinsulinemia Insulin resistance LITO (obstructive sleep apnea) Hypercholesteremia Class 2 severe obesity with serious comorbidity and body mass index (BMI) of 35.0 to 35.9 in adult, unspecified obesity type (HCC) Expected: 01/03/2024, Expires: 04/03/2024 [facility] Work Phone: Comment on above: Expected: 01/03/2024, Expires: Start: 01-03-2024 End: 04-03-2024 Hemoglobin A1c in Blood HEMOGLOBIN A1C Lab Routine Well adult exam Encounter for screening for diabetes mellitus Expected: 01/03/2024, Expires: 04/03/2024 [facility] Comment on above: Expected: 01/03/2024, Expires: Start: 01-03-2024 End: 04-03-2024 Insulin [Units/volume] in Serum or Plasma INSULIN ASSAY BLOOD Lab Routine Insulin resistance Class 2 severe obesity with serious comorbidity and body mass index (BMI) of 35.0 to 35.9 in adult, unspecified obesity type (HCC) Expected: 01/03/2024, Expires: 04/03/2024 [facility] Comment on above: Expected: 01/03/2024, Expires: Start: 01-03-2024 End: 04-03-2024 Lipid 1996 panel - Serum or Plasma LIPID PANEL BASIC Lab Routine Insulin resistance Hypercholesteremia Class 2 severe obesity with serious comorbidity and body mass index (BMI) of 35.0 to 35.9 in adult, unspecified obesity type (HCC) Expected: 01/03/2024, Expires: 04/03/2024 [facility] Comment on above: Expected: 01/03/2024, Expires: Start: 01-03-2024 End: 01-03-2024 Patient encounter procedure Family Medicine Michelle Comment on above: physical/ 6 month weight mgmt f/u Start: 11-25-2023 End: 11-25-2023 Patient encounter procedure 11/25/2023 3:30 PM EDT Office Visit General Surgery [address] [place] [address] Naya Pepe MD [address] [address] 1 month f/u hemorrhoids ra General Surgery Comment on above: 1 month f/u hemorrhoids ra Start: 11-23-2023 End: 11-23-2023 Patient encounter procedure 11/23/2023 9:45 AM EDT Office Visit General Surgery [address] [place] [address] Naya Pepe MD [address] [address] 1 month follow up General Surgery Comment on above: 1 month follow up Start: 11-13-2023 Covid-19 Vaccine ( season) Covid-19 Vaccine () [facility] Start: 11-13-2023 Influenza vaccination [facility] Start: 11-02-2023 ANNUAL PCP TEAM CHRONIC DISEASE VISIT ANNUAL PCP TEAM CHRONIC DISEASE VISIT [facility] Start: 10-20-2023 End: 10-20-2023 Patient encounter procedure 10/20/2023 11:40 AM EDT Office Visit OB/Gynecology [address] [place] [address] Kailyn Gill MD [address] [place] [address] weight management follow up OB/Gynecology Comment on above: weight management follow up Start: 10-20-2023 End: 10-20-2023 Patient encounter procedure 10/20/2023 8:15 AM EDT Office Visit General Surgery [address] [place] [address] [place] [address] Naya Pepe MD [address] [address] Hemorrhoids, unspecified hemorrhoid type [K64.9] General Surgery Comment on above: Hemorrhoids, unspecified hemorrhoid type [K64.9] Start: 10-17-2023 End: 10-17-2023 Patient encounter procedure 10/17/2023 2:00 PM EDT Office Visit Family Medicine Michelle [address] [place] [address] Clark Javed MD [address] [place] [address] physical/ 6 month Family Medicine [place] Comment on above: physical/ 6 month Start: 09-06-2023 End: 09-06-2023 ambulatory 09/06/2023 1:00 PM EDT [facility] Neurology [address] [place] [address] Libby Goodman APRN.[employer] [address] [place] [address] sleep evaluation Neurology Comment on above: sleep evaluation Start: 08-29-2023 End: 08-29-2023 Patient encounter procedure 08/29/2023 4:20 PM EDT Office Visit OB/Gynecology [address] [place] [address] Kailyn Gill MD [address] [place] [address] weight management follow up OB/Gynecology Comment on above: weight management follow up Start: 05-30-2023 End: 08-29-2023 Insulin [Units/volume] in Serum or Plasma INSULIN ASSAY BLOOD Lab Routine Screening for diabetes mellitus Expected: 05/30/2023, Expires: 08/29/2023 [facility] Work Phone: Comment on above: Expected: 05/30/2023, Expires: Start: 05-03-2023 ANNUAL PCP TEAM CHRONIC DISEASE VISIT ANNUAL PCP TEAM CHRONIC DISEASE VISIT [facility] Start: 05-03-2023 SHINGRIX VACCINE (1 of 2) SHINGRIX VACCINE (1 of 2) [facility] Comment on above: Postponed from 09/20/1990 (Declined at t his time) Postponed from 09/20 (Declined at this time) Start: 11-12-2022 Covid-19 Vaccine ( season) Covid-19 Vaccine () [facility] Start: 11-12-2022 Influenza vaccination [facility] Start: 10-26-2022 ANNUAL PCP TEAM CHRONIC DISEASE VISIT ANNUAL PCP TEAM CHRONIC DISEASE VISIT [facility] Start: 09-01-2022 ANNUAL PCP TEAM CHRONIC DISEASE VISIT ANNUAL PCP TEAM CHRONIC DISEASE VISIT [facility] Start: 07-12-2022 Source specific culture [facility] Start: 07-04-2022 End: 09-03-2022 Nuclear Ab [Presence] in Serum by Immunoassay ISABELLE BLOOD Lab Routine Elevated antinuclear antibody (ISABELLE) level Expected: 07/04/2022, Expires: 09/03/2022 [facility] Work Phone: Comment on above: Expected: 07/04/2022, Expires: Start: 03-29-2022 Urine microalbumin profile DTAP,TDAP,TD (2 - Td or Tdap) [facility] Start: 12-29-2021 Anes hysteroscopy&/hysterosalp ingography w/bx ANESTH HYSTEROSCOPE/GRAPH [facility] Work Phone: Start: 12-29-2021 Hysteroscopy bx endometrium&/polypc w/wo d&c HYSTEROSCOPY BIOPSY [facility] Work Phone: Start: 12-29-2021 Ambulation without limitation [facility] Work Phone: Start: 12-29-2021 Medication education [facility] Work Phone: Start: 12-29-2021 Patient discharge [facility] Work Phone: Start: 12-29-2021 Procedure discontinued [facility] Work Phone: Start: 12-29-2021 Taking patient vital signs [facility] Work Phone: Start: 12-29-[address] [facility] Work Phone: Start: 12-29-2021 [facility] Work Phone: Start: 12-29-2021 Medical regimen orders management [facility] Work Phone: Start: 11-12-2021 Influenza vaccination INFLUENZA (#1) [facility] Start: 11-03-2021 End: 01-03-2022 CBC W Auto Differential panel - Blood CBC + DIFF Lab Routine Leukocytosis, unspecified type Expected: 11/03/2021, Expires: 01/03/2022 [facility] Work Phone: Comment on above: Expected: 11/03/2021, Expires: 2 Start: 11-03-2021 End: 01-03-2022 POTASSIUM BLD POTASSIUM BLD Lab Routine Hypokalemia Expected: 11/03/2021, Expires: 01/03/2022 [facility] Work Phone: Comment on above: Expected: 11/03/2021, Expires: 2 Start: 10-27-2021 End: 12-27-2021 Bacteria identified in Urine by Culture [facility] Work Phone: Comment on above: Expected: 10/27/2021, Expires: 2 Start: 10-26-2021 End: 12-26-2021 Urinalysis complete panel - Urine [facility] Work Phone: Comment on above: Expected: 10/26/2021, Expires: 2 Start: 10-13-2021 COVID-19 VACCINE (5 - Booster for Pfizer series) COVID-19 VACCINE (5 - Booster for Pfizer series) [facility] Start: 09-20-2021 Shingrix Vaccine (1 of 2) Shingrix Vaccine (1 of 2) [facility] Start: 09-01-2021 End: 11-01-2021 CBC W Auto Differential panel - Blood CBC + DIFF Lab Routine Memory changes Attention and concentration deficit Expected: 09/01/2021, Expires: 11/01/2021 [facility] Work Phone: Comment on above: Expected: 09/01/2021, Expires: 2 Start: 09-01-2021 End: 11-01-2021 Cobalamin (Vitamin B12) [Mass/volume] in Serum or Plasma VITAMIN B12 BLOOD Lab Routine Memory changes Attention and concentration deficit Expected: 09/01/2021, Expires: 11/01/2021 [facility] Work Phone: Comment on above: Expected: 09/01/2021, Expires: 2 Start: 09-01-2021 End: 11-01-2021 Comprehensive metabolic 2000 panel - Serum or Plasma COMP METABOLIC PANEL Lab Routine Memory changes Attention and concentration deficit Hyperlipidemia, mixed Expected: 09/01/2021, Expires: 11/01/2021 [facility] Work Phone: Comment on above: Expected: 09/01/2021, Expires: 2 Start: 09-01-2021 End: 11-01-2021 LIPID PANEL, NONFASTING LIPID PANEL, NONFASTING Lab Routine Hyperlipidemia, mixed Expected: 09/01/2021, Expires: 11/01/2021 [facility] Work Phone: Comment on above: Expected: 09/01/2021, Expires: 2 Start: 09-01-2021 End: 11-01-2021 Thyrotropin [Units/volume] in Serum or Plasma TSH BLD Lab Routine Memory changes Attention and concentration deficit Expected: 09/01/2021, Expires: 11/01/2021 [facility] Work Phone: Comment on above: Expected: 09/01/2021, Expires: 2 Start: 08-08-2021 COVID-19 VACCINE (5 - Booster for Pfizer series) COVID-19 VACCINE (5 - Booster for Pfizer series) [facility] Start: 04-07-2020 HPV TESTING HPV TESTING [facility] Start: 04-07-2020 PAP TESTING PAP TESTING [facility] Start: 10-07-2019 Mammography MAMMOGRAM [facility] Start: 09-20-2016 COLOGUARD (FIT-DNA) COLOGUARD (FIT-DNA) [facility] Start: 09-20-[address] COLONOGRAPHY [facility] Start: 09-20-2016 FECAL OCCULT BLOOD FECAL OCCULT BLOOD [facility] Start: 09-20-2016 Screening for malignant neoplasm of colon [facility] Start: 09-20-2016 SIGMOIDOSCOPY SIGMOIDOSCOPY [facility] Start: 09-19-2013 PNEUMOCOCCAL (2 - PCV) PNEUMOCOCCAL (2 - PCV) [facility] Start: 09-20-1990 SHINGRIX VACCINE (1 of 2) SHINGRIX VACCINE (1 of 2) [facility] Start: 09-20-1989 SPIROMETRY SPIROMETRY [facility] Start: 1971 HEPATITIS B (1 of 3 - 3-dose series) HEPATITIS B (1 of 3 - 3-dose series) [facility] Cytopathology proced ure, preparation of smear, genital source Genital Culture [facility] ECG COMPLETE ECG COMPLETE ECG Routine SOB (shortness of breath) Ordered: 06/14/2023 [facility] Work Phone: Comment on above: Ordered: 06/14/2023 End: 06-13-2024 Echocardiography ECHO Cardiology STAT SOB (shortness of breath) Peripheral edema 1 Occurrences starting 06/14/2023 until 06/13/2024 [facility] Work Phone: Comment on above: 1 Occurrences starting 06/14/2023 until 06/13/2024 ENTERIC BACTERIAL PA GAVI BY PCR ENTERIC BACTERIAL PANEL BY PCR Lab Routine Traveler's diarrhea 09/27/2022 10:57 AM EDT [facility] Work Phone: Estradiol (E2) [Mass/volume] in Serum or Plasma [facility] Follicle stimulating hormone measurement [facility] Hepb vaccine adult 3 dose schedule for im use HEP B VACCINE, 3-DOSE, AGE 20+ YR (ENGERIX-B, RECOMBIVAX HB) Immunization/Injection Routine Need for vaccination Ordered: 07/19/2024 [facility] Work Phone: Comment on above: Ordered: 07/19/2024 Liquid based cervica l cytology screening [facility] End: 12-03-2023 ROM SCREENING ROM SCREENING Radiology Routine Encounter for screening mammogram for breast cancer 1 Occurrences starting 11/03/2022 until 12/03/2023 [facility] Work Phone: Comment on above: 1 Occurrences starting 11/03/2022 until 12/03/2023 Measles mumps rubell a virus vaccine live subq MMR VACCINE (M-M-R II, PRIORIX) Immunization/Injection Routine Ordered: 07/19/2024 [facility] Comment on above: Ordered: 07/19/2024 MG Breast - bilatera l Screening [facility] End: 02-01-2025 MG Breast Screening ROM SCREENING Radiology Routine Encounter for screening mammogram for breast cancer 1 Occurrences starting 01/03/2024 until 02/01/2025 [facility] Work Phone: Comment on above: 1 Occurrences starting 01/03/2024 until 02/01/2025 MG Breast Screening ROM SCREENIN G Radiology Routine Encounter for screening mammogram for breast cancer 01/16/2024 2:21 PM EST [facility] Work Phone: Ova and parasites identified in Unspecified specimen by Light microscopy OVA + PARA MICROSCOPIC Microbiology Routine Traveler's diarrhea 09/27/2022 10:57 AM EDT [facility] Work Phone: Patient referral [facility] Work Phone: REFER FOR ADMIT INTERVIEW REFER FOR ADMIT INTERVIEW Procedures Routine Anorectal fistula Ordered: 05/21/2024 [facility] Work Phone: Comment on above: Ordered: 05/21/2024 End: 01-01-2023 Screening mammography bi 2-view breast inc cad ROM SCREENING Radiology Routine Encounter for screening mammogram for breast cancer 1 Occurrences starting 12/02/2021 until 01/01/2023 [facility] Work Phone: Comment on above: 1 Occurrences starting 12/02/2021 until 01/01/2023 End: 11-25-2022 Us pelvic nonobstetric real-time image complete US FEMALE PELVIS TRANSABD COMPLETE Radiology Routine Lower abdominal pain Dyspareunia in female 1 Occurrences starting 10/26/2021 until 11/25/2022 [facility] Work Phone: Comment on above: 1 Occurrences starting 10/26/2021 until 11/25/2022 End: 11-25-2022 Us transvaginal US FEMALE PELVIS TRANSVAG Radiology Routine Lower abdominal pain Dyspareunia in female 1 Occurrences starting 10/26/2021 until 11/25/2022 [facility] Work Phone: Comment on above: 1 Occurrences starting 10/26/2021 until 11/25/2022 End: 10-29-2021 Us transvaginal [facility] Work Phone: Comment on above: 1 Occurrences starting 10/29/2021 until 10/29/2021 [facility] Immunizations Immunization Date Immunization Notes Care Provider Hansa [facility] 09-17-2024 hepatitis B vaccine, adult dosage Mi Nurse Work Phone: [facility] 09-17-2024 zoster vaccine recombinant Mi Nurse Work Phone: [facility] 08-03-2024 hepatitis B vaccine, adult dosage Mi Nurse Work Phone: [facility] 08-03-2024 measles, mumps and rubella virus vaccine Mi Nurse Work Phone: [facility] 07-16-2024 zoster vaccine recombinant Latrice Etienne APRN.[employer] Work Phone: [facility] 01-03-2024 influenza, seasonal, injectable Kailyn Givens MD Work Phone: [facility] 01-03-2024 influenza virus vacc ine, unspecified formulation Mi Nurse Work Phone: [facility] 11-01-2022 pneumococcal (PCV20) vaccine, 20 valent (PREVNAR 20) Clark Javed MD Work Phone: [facility] 11-01-2022 tetanus toxoid, redu nancie diphtheria toxoid, and acellular pertussis vaccine, adsorbed Clark Javed MD Work Phone: [facility] 02-23-2022 influenza, injectabl e, quadrivalent, preservative free [facility] 02-23-2022 influenza, seasonal, injectable Dr. Clark Javed Work Phone: [facility] 02-23-2022 influenza virus vacc ine, unspecified formulation Clark Javed MD Work Phone: [facility] 03-03-2021 influenza, injectabl e, quadrivalent, contains preservative Abbey Smith PA-C Work Phone: [facility] 01-21-2020 influenza, injectabl e, quadrivalent, contains preservative Abbey Smith PA-C Work Phone: [facility] 09-19-2012 pneumococcal polysaccharide vaccine, 23 valent Abbey Smith PA-C Work Phone: [facility] 03-29-2012 tetanus toxoid, redu nancie diphtheria toxoid, and acellular pertussis vaccine, adsorbed Abbey Smith PA-C Work Phone: [facility] Work Phone: Payers Date Payer Category Payer Self-pay [id number] 2022 Unknown [id number] 2022 Blue Cross Blue [facility] BLUE [employer] P[employer] [id number] 2022 Unknown [id number] 2020 Unknown [facility] PRE [employer] INSURED [id number] 2020-Present [phone] [address] [place] [address] PPO [id number] 2020 Unknown [id number] Unknown [facility] [id number] Unknown [id number] Unknown [id number] Unknown [id number] Unknown [id number] Unknown [id number] Unknown [id number] Unknown [id number] Unknown [id number] Social History Date Type Detail Facility Start: 05-16-2017 End: 01-03-2024 Tobacco smoking status NHIS Ex-smoker [facility] Start: 07-13-1991 End: 07-12-2006 History of tobacco use Current smoker [facility] Start: 07-13-1991 End: 07-12-2006 History of tobacco use Cigarette Smoker [facility] Start: 09-01-2021 End: 07-10-2024 Alcohol intake Current drinker of alcohol (finding) [facility] Start: 03-23-2007 History SDOH Alcohol Comment rare,NOT WHILE [facility] Start: 03-23-2007 End: 05-03-2022 Tobacco Comment SOCIAL SMOKER IN PAST [facility] Start: 1970 Sex Assigned At Not on file C [facility] Start: 08-22-2021 End: 08-15-2022 Exposure to SARS-CoV-2 (event) Not sure [facility] Start: 05-16-2017 End: 01-03-2024 Tobacco use and exposure Smokeless tobacco non-user [facility] Start: 12-23-2021 End: 07-12-2022 Tobacco smoking status NHIS Unknown if ever smoked [facility] Start: 1970 Sex Assigned At Female W [facility] Start: 05-02-2022 History SDOH Alcohol Frequency 3 [facility] Start: 05-02-2022 History SDOH Alcohol Std Drinks 1 [facility] Start: 05-02-2022 History SDOH Social Connections Phone 2 [facility] Start: 05-02-2022 History SDOH Stress 4 [facility] Start: 05-02-2022 End: 11-01-2022 History of Social function [facility] Start: 05-02-2022 End: 11-01-2022 Social connection and isolation panel [facility] Do you belong to any clubs or organizations such as muslim groups, unions, fraternal or athletic groups, or school groups? No [facility] Are you now , , , , never or living with a partner? [facility] How often to you hav e a drink containing alcohol? 2-4 times a month [facility] How many standard dr inks containing alcohol do you have on a typical day? 1 or 2 [facility] How often do you hav e 6 or more drinks on 1 occasion? Never [facility] How hard is it for y ou to pay for the very basics like food, housing, medical care, and heating Patient refused [facility] Do you feel stress - tense, restless, nervous, or anxious, or unable to sleep at night because your mind is troubled all the time - these days [OSQ] Rather much [facility] (I/We) worried zach er (my/our) food would run out before (I/we) got money to buy more. DK or Refused [facility] How hard is it for y ou to pay for the very basics like food, housing, medical care, and heating Not very hard [facility] Do you feel stress - tense, restless, nervous, or anxious, or unable to sleep at night because your mind is troubled all the time - these days [OSQ] To some extent [facility] (I/We) worried zach er (my/our) food would run out before (I/we) got money to buy more. Never true [facility] Start: 06-11-2024 Gender identity Identifies as female gender (finding) [facility] Medical Equipment Procedure Code Equipment Code Equipment Origin al Text Equipment Identifier Dates SEALANT,FLOSEAL HEMOSTATIC 5ML FDA Start: 08-29-2017 SEALANT,FLOSEAL HEMOSTATIC 5ML FDA Start: 08-29-2017 SEALANT,FLOSEAL HEMOSTATIC 5ML FDA Start: 08-29-2017 SEALANT,FLOSEAL HEMOSTATIC 5ML FDA Start: 08-29-2017 SEALANT,FLOSEAL HEMOSTATIC 5ML FDA Start: 08-29-2017 SEALANT,FLOSEAL HEMOSTATIC 5ML FDA Start: 08-29-2017 SEALANT,FLOSEAL HEMOSTATIC 5ML FDA Start: 08-29-2017 SEALANT,FLOSEAL HEMOSTATIC 5ML FDA Start: 08-29-2017 Goals Date Patient Goal Desired Activity /State Functional Status Date Assessment Result Facility 06-03-2014 Are you deaf, or do you have serious difficulty hearing No 06/03/2014 10:33 AM Shantell Vidales MA No [facility] 06-03-2014 Are you blind, or do you have serious difficulty seeing, even when wearing glasses No 06/03/2014 10:33 AM Shantell Vidlaes MA No [facility] 06-03-2014 Do you have serious difficulty walking or climbing stairs No 06/03/2014 10:33 AM Shantell Vidales MA [facility] 06-03-2014 Do you have difficul ty dressing or bathing No 06/03/2014 10:33 AM Shantell Vidales MA [facility] 06-03-2014 Because of a physica l, mental, or emotional condition, do you have difficulty doing errands alone such as visiting a physician's office or shopping No 06/03/2014 10:33 AM Shantell Vidales MA [facility] Mental Status Date Assessment Result Facility 12-29-2021 Cognitive function Voice/Name [facility] Work Phone: 06-03-2014 Because of a physica l, mental, or emotional condition, do you have serious difficulty concentrating, remembering, or making decisions No 06/03/2014 10:33 AM EDT Shantell Foote MA No [facility] Clinical Notes 04-19-2007 to 09-17-2024 JOHANNA RESENDIZ - 09/17/2024 8:25 AM EDTTelephone Encounter - JOHANNA RESENDIZ - 07/19/2024 10:02 AM EDTTelephone Encounter - JOHANNA RESENDIZ - 07/19/2024 10:02 AM EDTPatient Instructions Note Date & Type Note Facility 09-17-2024 Note HNO ID: [id number] Author: ?, ?, ? Service: ? Author Type: LICENSED NURSE Type: Progress Notes Filed: 09/17/2024 08:27 Note Text: Patient presents for Shingrix and Hepatitis B vaccines. Denies any problems at this time. Tolerated injections well. Johanna Resendiz LPN [facility] 09-17-2024 History of Present illness Narrative Patient presents for Shingrix and Hepatitis B vaccines. Denies any problems at this time. Tolerated injections well. Johanna Resendiz LPN documented in this encounter [facility] 08-03-2024 Note HNO ID: [id number] Author: ?, ?, ? Service: ? Author Type: LICENSED NURSE Type: Progress Notes Filed: 08/03/2024 16:01 Note Text: Patient presents for MMR and Hepatitis B vaccines. Denies any problems at this time. Tolerated injections well. Johanna Resendiz LPN [facility] 07-19-2024 Telephone encounter Note Patient scheduled for nurse visit 08/03/24 to receive MMR and Hepatitis B vaccines. Please place order at this time. Johanna Resendiz LPN [facility] 07-19-2024 Miscellaneous Notes Patient scheduled for nurse visit 08/03/24 to receive MMR and Hepatitis B vaccines. Please place order at this time. Johanna Resendiz LPN documented in this encounter [facility] 07-17-2024 Telephone encounter Note Pt notified and scheduled Rafia Lundberg MA [facility] 07-17-2024 Miscellaneous Notes Pt notified and scheduled Rafia Lundberg MA Please let patient know her labs show no immunity to hepatitis B or measles. Recommend making an appointment to get MMR booster and starting Hepatitis B series. documented in this encounter [facility] 07-17-2024 Telephone encounter Note Please let patient know her labs show no immunity to hepatitis B or measles. Recommend making an appointment to get MMR booster and starting Hepatitis B series. [facility] 07-16-2024 Note HNO ID: [id number] Author: LATRICE ETIENNE APRN.CNP Service: ? Author Type: Nurse Practitioner Type: Progress Notes Filed: 07/16/2024 09:02 Note Text: Chief Complaint Patient presents with: Follow Up HPI Chika Good is a 53 year old female who presents here today for Above Complaints. Patient presents to discuss immunizations. Patient is unsure whether she got all her immunizations and would like titers drawn. Past medical history, appointments, medications, allergies reviewed. Previous Medical History PAST MEDICAL HISTORY Diagnosis Date Abnormal glandular Papanicolaou smear of cervix Abn. Pap smear (cervix) Acute gastritis without mention of hemorrhage Allergic rhinitis, seasonal Anxiety 07/07/2012 Chronic tension-type headache, intractable 03/17/2016 Depression 07/07/2012 Encounter for routine gynecological examination 01/21/[address] 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 Vitamin D deficiency 08/29/2023 Well adult exam 01/21/2020 Last done 10/26/21 Previous Surgical History PAST SURGICAL HISTORY Procedure Laterality Date ADENOIDECTOMY PRIMARY Adenoidectomy BREAST REDUCTION 09/2016 BX BREAST W/DEVICE 1ST LESION ULTRASOUND GUID Left 05/03/2015 U/S Needle core upper mid left breast DELIVERY ONLY 11/2007 [facility] COLONOSCOPY FLX DX W/COLLJ SPEC WHEN PFRMD 2003 Colonoscopy COLONOSCOPY FLX DX W/COLLJ SPEC WHEN PFRMD 08/21/2008 Colonoscopy COLONOSCOPY FLX DX W/COLLJ SPEC WHEN PFRMD 01/14/2015 COLONOSCOPY FLX DX W/COLLJ SPEC WHEN PFRMD 02/04/2020 Colonoscopy- repeat 5 year CONIZATION CERVIX W/WO DANDC RPR ELTRD EXC 1994 LEEP-Cervix DANDC, DIAG AND/OR THERAPEUTIC 12/2021 EGD 1992 REMOVAL OF FOREIGN BODY EGD TRANSORAL BIOPSY SINGLE/MULTIPLE 06/12/2008 ESOPHAGOGASTRODUODENOSCOPY TRANSORAL DIAGNOSTIC 05/16/2017 EGD ESOPHAGOGASTRODUODENOSCOPY TRANSORAL DIAGNOSTIC 02/04/2020 EGD- repeat in 1 year ESOPHAGOSCOPY FLEX BALLOON DILAT <30 MM DIAM 06/12/2008 PAST SURGICAL HISTORY OF 02/21/2024 EUA, external hemorrhoidectomy SEPTOPLASTY 08/29/2017 Dr. Manny Sexton-nasal airway obstruction. deviated septum, inferior turbinate hypertrophy TONSILLECTOMY PRIMARY/SECONDARY Tonsillectomy Family History FAMILY HISTORY Problem Relation Age of Onset Asthma Mother Hypertension Father Colon Cancer Father Colon polyps Colon Cancer Maternal Grandfather Colon Cancer Paternal Grandfather Patient Allergies ALLERGIES No Known Allergies Current Medications Current Outpatient Medications on File Prior to Visit Medication Sig tirzepatide, weight loss (ZEPBOUND) 15 mg/0.5 mL pen injector Inject 15 mg subcutaneously one time a week. omeprazole (PRILOSEC) 40 mg capsule Take 1 capsule by mouth once daily. Norethindrone, Contraceptive, 0.35 mg tablet Take 1 tablet by mouth once daily. ADELINA 0.0375 mg/24 hr estradiol (ESTRACE) 0.01 % (0.1 mg/gram) vaginal cream atorvastatin (LIPITOR) 20 mg tablet Take 1 tablet by mouth daily at bedtime. For cholesterol. fluticasone-salmeterol (ADVAIR DISKUS) 250-50 mcg/dose inhaler Inhale 1 Puff as instructed two times a day. Rinse and gargle mouth after use with water. albuterol HFA (VENTOLIN HFA) 90 mcg/actuation inhaler Inhale 2 Puffs as instructed every 4 hours as needed. CHOLECALCIFEROL, VITAMIN D3, ORAL Take by mouth as directed. Combined with omega 3 No current facility-administered medications on file prior to visit. Social History Social History Tobacco Use Smoking status: Former Current packs/day: 0.00 Types: Cigarettes Start date: 07/13/1991 Quit date: 07/12/2006 Years since quittin.0 Smokeless tobacco: Never Tobacco comments: SOCIAL SMOKER IN PAST Vaping Use Vaping status: Never Used Substance Use Topics Alcohol use: Yes Comment: rare,NOT WHILE Drug use: No Review of Symptoms REVIEW OF SYSTEMS SEE HPI EXAM: BP 96/64 Pulse 73 Wt 77 kg (169 lb 12.1 oz) LMP 06/11/2024 (Approximate) BMI 30.07 kg/m? General Appearance: Well appearing, alert, in no acute distress, well-hydrated, well nourished. Health Maintenance List Shingrix Vaccine(1 of 2) Never done Covid-19 Vaccine() due on 11/13/2023 Mammogram Screening due on 01/15/2025 Annual PCP Team Chronic Disease Visit due on 07/16/2025 Cervical Cancer Screening due on 05/10/2027 Diabetes Screening due on 05/22/2027 Lipid Screening due on 01/31/2029 Colorectal Cancer Screening due on 06/21/2029 DTaP,Tdap,Td Vaccine(3 - Td or Tdap) due on 11/01/2032 Influenza Vaccine Completed Hepatitis C Screening Completed Pneumococcal Vaccine: 50+ Complet (more content not included)... [facility] 07-16-2024 History of Present illness Narrative Chief Complaint Patient presents with: Follow Up HPI Chika Good is a 53 year old female who presents here today for Above Complaints. Patient presents to discuss immunizations. Patient is unsure whether she got all her immunizations and would like titers drawn. Past medical history, appointments, medications, allergies reviewed. Previous Medical History PAST MEDICAL HISTORY Diagnosis Date Abnormal glandular Papanicolaou smear of cervix Abn. Pap smear (cervix) Acute gastritis without mention of hemorrhage Allergic rhinitis, seasonal Anxiety 07/07/2012 Chronic tension-type headache, intractable 03/17/2016 Depression 07/07/2012 Encounter for routine gynecological examination 01/21/[address] 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 Vitamin D deficiency 08/29/2023 Well adult exam 01/21/2020 Last done 10/26/21 Previous Surgical History PAST SURGICAL HISTORY Procedure Laterality Date ADENOIDECTOMY PRIMARY <AGE 13 Adenoidectomy BREAST REDUCTION 09/2016 BX BREAST W/DEVICE 1ST LESION ULTRASOUND GUID Left 05/03/2015 U/S Needle core upper mid left breast DELIVERY ONLY 11/2007 [facility] COLONOSCOPY FLX DX W/COLLJ SPEC WHEN PFRMD 2003 Colonoscopy COLONOSCOPY FLX DX W/COLLJ SPEC WHEN PFRMD 08/21/2008 Colonoscopy COLONOSCOPY FLX DX W/COLLJ SPEC WHEN PFRMD 01/14/2015 COLONOSCOPY FLX DX W/COLLJ SPEC WHEN PFRMD 02/04/2020 Colonoscopy- repeat 5 year CONIZATION CERVIX W/WO D&C RPR ELTRD EXC 1994 LEEP-Cervix D&C, DIAG AND/OR THERAPEUTIC 12/2021 EGD 1991 REMOVAL OF FOREIGN BODY EGD TRANSORAL BIOPSY SINGLE/MULTIPLE 06/12/2008 ESOPHAGOGASTRODUODENOSCOPY TRANSORAL DIAGNOSTIC 05/16/2017 EGD ESOPHAGOGASTRODUODENOSCOPY TRANSORAL DIAGNOSTIC 02/04/2020 EGD- repeat in 1 year ESOPHAGOSCOPY FLEX BALLOON DILAT <30 MM DIAM 06/12/2008 PAST SURGICAL HISTORY OF 02/21/2024 EUA, external hemorrhoidectomy SEPTOPLASTY 08/29/2017 Dr. Manny Carlie-nasal airway obstruction. deviated septum, inferior turbinate hypertrophy TONSILLECTOMY PRIMARY/SECONDARY <AGE 13 Tonsillectomy Family History FAMILY HISTORY Problem Relation Age of Onset Asthma Mother Hypertension Father Colon Cancer Father Colon polyps Colon Cancer Maternal Grandfather Colon Cancer Paternal Grandfather Patient Allergies ALLERGIES No Known Allergies Current Medications Current Outpatient Medications on File Prior to Visit Medication Sig tirzepatide, weight loss (ZEPBOUND) 15 mg/0.5 mL pen injector Inject 15 mg subcutaneously one time a week. omeprazole (PRILOSEC) 40 mg capsule Take 1 capsule by mouth once daily. Norethindrone, Contraceptive, 0.35 mg tablet Take 1 tablet by mouth once daily. ADELINA 0.0375 mg/24 hr estradiol (ESTRACE) 0.01 % (0.1 mg/gram) vaginal cream atorvastatin (LIPITOR) 20 mg tablet Take 1 tablet by mouth daily at bedtime. For cholesterol. fluticasone-salmeterol (ADVAIR DISKUS) 250-50 mcg/dose inhaler Inhale 1 Puff as instructed two times a day. Rinse and gargle mouth after use with water. albuterol HFA (VENTOLIN HFA) 90 mcg/actuation inhaler Inhale 2 Puffs as instructed every 4 hours as needed. CHOLECALCIFEROL, VITAMIN D3, ORAL Take by mouth as directed. Combined with omega 3 No current facility-administered medications on file prior to visit. Social History Social History Tobacco Use Smoking status: Former Current packs/day: 0.00 Types: Cigarettes Start date: 07/13/1991 Quit date: 07/12/2006 Years since quittin.0 Smokeless tobacco: Never Tobacco comments: SOCIAL SMOKER IN PAST Vaping Use Vaping status: Never Used Substance Use Topics Alcohol use: Yes Comment: rare,NOT WHILE Drug use: No Review of Symptoms REVIEW OF SYSTEMS SEE HPI EXAM: BP 96/64 Pulse 73 Wt 77 kg (169 lb 12.1 oz) LMP 06/11/2024 (Approximate) BMI 30.07 kg/m General Appearance: Well appearing, alert, in no acute distress, well-hydrated, well nourished. Health Maintenance List Shingrix Vaccine(1 of 2) Never done Covid-19 Vaccine() due on 11/13/2023 Mammogram Screening due on 01/15/2025 Annual PCP Team Chronic Disease Visit due on 07/16/2025 Cervical Cancer Screening due on 05/10/2027 Diabetes Screening due on 05/22/2027 Lipid Screening due on 01/31/2029 Colorectal Cancer Screening due on 06/21/2029 DTaP,Tdap,Td Vaccine(3 - Td or Tdap) due on 11/01/2032 Influenza Vaccine Completed Hepatitis C Screening Completed Pneumococcal Vaccine: 50+ Completed Hepatitis B Vaccine Discontinued HIV Screening Discontinued ASSESSMENT/PLAN: 1. Immunity status testing - ICD9: V72.61, ICD10: Z01.84 (primary diagnosis) - MEASLES IGG ANTIBODY - MUMPS IGG AB - RUBELLA IGG ANTIBODY - HEPATITIS B SURFACE ANTIBODY 2. Encounter for immunization - ICD9: V03.89, ICD10: Z23 - ZOSTER VACCINE, RECOMBINANT (SHINGRIX) - ZOSTER VACCINE, RECOMBINANT (SHINGRIX) 3. Motion sickness, initial encounter - ICD9: 994.6, ICD10: T75.3XXA - SCOPOLAMINE 1 MG OVER 3 DAYS TRANSDERMAL PATCH Latrice Etienne APRN.[employer] documented in this encounter [facility] 07-10-2024 Instructions Kailyn Gill MD - 07/10/2024 4:35 PM EDT Your GLP-1 medication is now set at the 15 dose using your pen injector. Continue using it as prescribed, receiving a 1-month supply at a time. Keep following your exercise routine: walk 4 miles daily and strength train three times a week. If your weighted vest feels too heavy, consider switching to a flight follower option to maintain a comfortable pace. Increase your dietary fiber to around 25 grams per day by including more fresh vegetables, grains, or other fiber?rich foods to help manage your daily loose stools. Continue to stay well-hydrated. Aim to increase your fluid intake beyond your current amount and consider adding a sugar-free sports drink (or electrolyte pack) once a day, especially on days when you experience diarrhea. Attend your follow-up exam--including a Pap exam and assessment of the labial spot--scheduled for December 03 at 8:50 AM. Tips for eating away from home: Youtube video: https://[email or web address].ioube.com/watch?v=V9oFJW oNYoA Meals away from home make it harder to control ingredients, calories, and portions. This can be particularly challenging for people with Type 2 diabetes (and for those of us trying to avoid getting this condition). The following tips can help you enjoy eating out without abandoning your efforts to eat well. Ask how the food is prepared. Before you order, ask about ingredients and how the menu selections are prepared. Try to choose dishes made with whole grains, healthy oils, vegetables, and lean proteins. Meat that has been broiled, poached, baked, or grilled is a more health-conscious option than fried foods or dishes prepared with heavy sauces. Look for less. Your eyes are the perfect instrument for sizing up portion sizes. Use your estimating techniques to size up the food on your plate. 1 thumb tip = 1 teaspoon of peanut butter, butter, or sugar 1 finger = 1 oz. of cheese 1 fist = 1 cup cereal, pasta, or vegetables 1 handful = 1 oz. of nuts or pretzels 1 palm = 3 oz. of meat, fish, or poultry Plan on eating half your meal and take the rest home to enjoy for lunch or dinner the next day. Order an extra side of veggies. Non-starchy vegetables, such as green beans, broccoli, asparagus, or summer squash, will help you fill up with low-calorie choices. Think ahead. Learn important nutrition information ahead of time. Most fast-food chains provide calories, sodium, and fat content for their menu items. Check out www.C2[employer] Link for a listing of over 50,000 foods, including many restaurant items. You can also visit company-specific websites Dining Out Tips Dining out is tricky. You have less control over ingredients & portions so even when you think you re ordering healthy, it s likely way more calories & less nutrition than a similar meal you d make at home. Research shows people who do best losing weight & keeping it off don t dine out much only 2.5 times out of 21 meals in a week. So, when you do dine out, make sure to use these PRO TIPS to keep your body happy DINE OUT LIKE A PRO 1. RUIN Your Appetite. About 1.5 hrs before you go out, eat something to cut hunger so you don t get to the restaurant & dive head first into the breadbasket. Try a produce + protein snack such as an apple + almonds or celery + sunflower seed butter. 2. Know BEFORE You Go. Do a few minutes of research before you re swept up in a whirlwind of socializing & drinking. This could be as simple as perusing the online menu on your phone on the ride to the restaurant. 3. Order a [employer] BUNDLE. Pair a healthy superfood with a less-healthy craving. It s the only way to honor both your inner health nut and wild child. At a [facility] joint and really want the pulled pork? Get it - but instead of plopping it on a refined grain bun, ask to put it alongside a salad. 4. Limit FLAVORS. Research shows variety stimulates appetite, meaning tasting little bits of many different foods will trigger you to over eat. So if you find yourself facing a tableful of small plates or buffet-style eating, commit to your absolute favorites rather than sampling every option. 5. Entree + ONE. It s often not just the meal that racks up CRAP calories, it s also the add-on apps + drinks + desserts. Focus on your main and skip these extras, or at least just pick your favorite ONE. Smart: Pick an appetizer salad! When [employer] researchers gave women a 100-calorie appetizer of either a salad or garlic bread, those who had the tiny salad ended up eating 21% less of their main course. What the Food Groups Do For You [employer] are always stressing the importance of a balanced diet, and for good reason. Each food group--and each food within a given group--offers a different nutrient package. This doesn t mean that you have to cover each group in every meal. But over the course of a day, you should have something from each group. And over the longer term--say, a week or a month--you should strive to eat a variety of foods from within each group, particularly vegetables and fruits.Here s a quick overview of what each group has to offer--and how much we should all be consuming. Vegetables and fruits. Fruit and vegetable intake is associated with reduced risk of a number of chronic diseases, including cardiovascular disease, type 2 diabetes, certain kinds of cancer, and dementia. Some of these benefits come from the nutrients and fiber in produce. These include not only the obvious vitamins and minerals, but also phytochemicals ranging from the anti-carcinogenic isothiocyanates in cruciferous vegetables like broccoli and cauliflower to antioxidants like vitamin C and hesperetin in citrus fruits. Fiber, too, is associated with a host of benefits, including bowel health, increased insulin sensitivity, and slower digestion that makes you feel king longer. Increasing your intake of fruits and vegetables may also improve your overall diet simply by displacing less healthy foods. The USDA now recommends daily consumption of 2 to 3 cups (roughly four to six half-cup servings) of vegetables and another 1 to 2 cups of fruit (three to four half-cup servings; see Table 1, page 9).Whole grains. Carbohydrates are primarily an energy source to fuel your body. But whole grains--such as quinoa, barley, and brown rice--do even more for you. Whole grains come packaged with their natural fiber, vitamins, minerals, and phytochemicals, so they deliver additional health benefits. Perhaps that s why research shows that people who eat whole grains tend to live longer and have a lower risk of chronic diseases, especially cardiovascular disease. By contrast, refined grains (such as white flour) have been stripped of their fiber-rich bran (the outer coating of the kernel) as well as the vitamin- and mineral-packed germ (see Figure 2, at left). For people up to age 50, the recommended intake is 38 grams for men and 25 grams for women (unless they are or , in which case the recommendation goes up to 28 grams and 29 grams, respectively). The recommendation is lower for people over age 50: 30 grams for men, and 21 grams for women. Dairy. Our first food as infants is milk, and dairy is associated with improved bone health, especially in children and adolescents. While adults don t need to consume dairy products, dairy foods offer protein and an array of vitamins and minerals, including calcium. Some dairy foods (English yogurt, cottage cheese, other cheeses) are better sources of protein than others (milk, regular yogurt), but keep in mind that many types of cheese are high in sodium and saturated fat. If you can t consume dairy or prefer not to, make sure you meet your calcium needs through other foods or supplements. Protein. You need protein in order to maintain your muscles, bones, skin, and every other organ and tissue in your body. Protein also helps you stay satisfied and manage hunger. Not only is protein important in your overall diet, but emerging research suggests that you should have some at all three meals, especially if you are older. However, keep in mind that while it s important to get enough protein, more is not necessarily better!Protein foods are a diverse group, including both animal sources (fish and seafood, meats, poultry, eggs, and dairy) and plant sources (soy products, pulses--that is, beans, lentils, chickpeas, and dry peas--and nuts and seeds). As with any food, quality counts: some protein-rich foods have more health benefits than others. [place] and other oily fish provide heart-healthy omega-3 fatty acids. Pulses and whole or minimally processed soy foods like tofu, tempeh, and edamame offer phytochemicals and fiber. On the other hand, fatty or processed meats come with excess saturated fat and other components that don t support optimal health. Fats and oils. Fat is an essential element of the diet. It s a major source of energy. In addition, the body requires fat to make cell membranes, provide a protective coating for nerves, maintain healthy skin and hair, and perform other vital functions.After some decades of thinking that we needed to limit fat to be healthy, scientists now know that it s not how much fat we eat (within reason), but the quality of the fat. For example, it s crystal clear that we need to avoid artificial trans fats--the hydrogenated vegetable oils that were once used in a variety of processed foods to help keep them from spoiling. Fortunately, those are largely gone from the food supply now, as the result of an FDA ruling in August 2017 banning them from foods sold in [place] grocery stores and restaurants. As for saturated fats--the kind found in animal products like meat and cheese--while limited amounts (less than 10% of daily calories) are fine for most people, they may contribute to a number of health problems, including increased LDL (bad) cholesterol and chronic inflammation, especially when eaten in excess.Most of the fat we eat should be unsaturated. This includes polyunsaturated fats from fatty fish like salmon, walnuts, sunflower seeds, flaxseeds, and some vegetable oils, as well as monounsaturated fats from nuts, peanuts, avocados, olive oil, and canola oil. Unsaturated fats have a number of benefits for health, especially cardiovascular health. A shorthand way of thinking of the different types of fats is this: if they are solid at room temperature, like the marbling in meats, they may lead to stiffer arteries (and therefore high blood pressure) as your body deposits them in arterial linings. If they are liquid at room temperature, like the olive oil you drizzle on your salad, they will help keep arteries more flexible. documented in this encounter [facility] 07-10-2024 History of Present illness Narrative Images from the original note were not included. Some documentation from previous visit of 04/09/24 was copied and pasted, documentation has been reviewed and edited as necessary for today's visit. Patient Summary: Chika is a 53 year old Female who presents for follow-up evaluation of obesity/weight management to treat and prevent related co-morbidities. In our previous visits we have discussed lifestyle intervention including a nutrition recommendations and physical activity optimization. Her last office visit was 3 months ago. Assessment/plan from last visit: -Change zepbound to 10mg dosing due to severe food aversion - ZEPBOUND and LITO indication reviewed - stop metformin- last insulin level was 8 - Labs reviewed with patient - continue vit D supplement - continue with Whole foods, Low carb, High protein -Continue prilosec for GERD -Continue Lipitor for Hypercholesteremia - Reviewed previous labs- CMP, LIPIDS and INSULIN ordered. -has follow up with PCP for routine care - discussed Journaling how she is feeling so she remembers and helps continue healthy habits. -Continue with routine exercise Interval History PT specifies the following items as new or significant updates since the last appointment: - Has lost 66 lbs since starting weight management program. - Currently on 15 mg of Mounjaro, previously on 10 mg but increased dosage due to availability issues at the pharmacy. - Initially experienced food aversions on 15 mg but reports no current issues. - Reports daily diarrhea, 1-2 times per day, a chronic issue for her. - Taking psyllium husk and aiming for 25 grams of fiber per day, usually achieving around 20 grams. - Drinking approximately 80 ounces of water daily. - Colonoscopy performed recently, no concerns about diarrhea from her reproductive healthcare assistant. - Reports significant improvement in overall well-being, stating, I feel great every day. - Engages in regular physical activity, walking 4 miles daily and strength training 3 days a week. - Not tracking food intake but follows a consistent dietary routine. - Breakfast: Two hard-boiled eggs and yogurt with harley seeds and 5 mg of creatine. - Lunch: Leftovers, often rotisserie chicken mixed with chickpeas, cucumber, quinoa, lemon juice, and olive oil. - Afternoon snack: Protein shake. - Dinner: Prepared by her partner, usually filet or Szechuan chicken with a small portion of rice and cabbage. - Incorporates vegetables into every meal. - Reports no cravings for sugar and consumes small portion sizes. - Hair loss has ceased, which she attributes to the stabilization of her weight. Weight loss since last vist: 7 lb Total weight lost: 66 lb - Last Wt 07/10/24 168 lb 04/05/24 175 lb 01/03/24 192 lb 10/20/23 198 lb 08/30/23 215 lb 07/12/23 224 lb STARTING WEIGHT 05/30/23 234 lb (106.1 kg) 5% weight loss = 218 lbs, 10% weight loss = 206 lbs GOAL weight: 150LBS Anti-obesity medications: Tirzepatide (Zepbound). Benefit:decreased food noise , decreased appetite, Adverse effects: none Anti-obesity medications: Metformin. -stopped Benefit:elevated insulin (86) Adverse effects: none Weight promoting medications: Inhaled corticosteroid Previous Diet (initial appointment): Wakes up: 5:30am- black coffee - drinks until lunch time Breakfast- 9am- Della cottage cheese pineapple and harley seeds, pea protein powder Lunch- seed 70cal nhi killer- Rotisserie chicken, garlic coffee Edamame, grapes (10) Dinner- Bonza chickpea pasta, chicken pasta, pepper, with veggies or schezwan chicken with white rice. Red cabbage with rice vinegar Snacks- sometimes chips, beef stick, cheese, Diet/Nutrition overview: Fluids: water (80-120oz) , black coffee 6cups Quality of diet: 24hr recall suggests in between diet. Characterization of diet:Structured. Sleeve Setter Safety Stitch of impaired eating habits:excessive hunger, emotion, and stress Eating Disorder no Preferred foods: Cravings: salty Nutrition Now: same B- 2 hard boiled eggs and yogurt with creatine and harley seeds L- Left overs- Rotissere chicken, chick peas, quinoa, lemon juice S- Shake ( owyn 32g) , nuts D- meat- Filet, chicken dish, small rice, cabbage and vegetable (broccoli), Dietary changes: Eating 3 meals a day, including breakfast Increasing water intake Controlling portions Identify hunger and satiety cues Increasing protein Reducing carbohydrates Current Barriers: inadequate sleep duration/QUALITY Exercise: walking 4 miles per day 6-7 days week- walking and steps, weight training. , feeling stronger. Stress: stable Sleep: stable but up multiple times 8 hours. LITO YES ; CPAP yes - NOT USING (01/02) Estimated Creatinine Clearance: 83.5 mL/min (based on SCr of 0.77 mg/dL). PAST MEDICAL HISTORY Diagnosis Date Abnormal glandular Papanicolaou smear of cervix Abn. Pap smear (cervix) Acute gastritis without mention of hemorrhage Allergic rhinitis, seasonal Anxiety 07/07/2012 Chronic tension-type headache, intractable 03/17/2016 Depression 07/07/2012 Encounter for routine gynecological examination 01/21/[address] 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 Vitamin D deficiency 08/29/2023 Well adult exam 01/21/2020 Last done 10/26/21 Current Outpatient Medications Medication Sig Dispense Refill tirzepatide, weight loss (ZEPBOUND) 10 mg/0.5 mL pen injector Inject 10 mg subcutaneously one time a week. 2 mL 2 omeprazole (PRILOSEC) 40 mg capsule Take 1 capsule by mouth once daily. 90 capsule 1 Norethindrone, Contraceptive, 0.35 mg tablet Take 1 tablet by mouth once daily. ADELINA 0.0375 mg/24 hr estradiol (ESTRACE) 0.01 % (0.1 mg/gram) vaginal cream atorvastatin (LIPITOR) 20 mg tablet Take 1 tablet by mouth daily at bedtime. For cholesterol. 90 tablet 1 fluticasone-salmeterol (ADVAIR DISKUS) 250-50 mcg/dose inhaler Inhale 1 Puff as instructed two times a day. Rinse and gargle mouth after use with water. 3 Each 1 albuterol HFA (VENTOLIN HFA) 90 mcg/actuation inhaler Inhale 2 Puffs as instructed every 4 hours as needed. 24 g 1 CHOLECALCIFEROL, VITAMIN D3, ORAL Take by mouth as directed. Combined with omega 3 No current facility-administered medications for this visit. 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 Latest Ref Rng & Units 05/21/2024 CMP Sodium 136 - 144 mmol/L 140 Potassium 3.7 - 5.1 mmol/L 4.5 Chloride 98 - 107 mmol/L 103 CO2 22 - 30 mmol/L 24 Glucose 74 - 99 mg/dL 95 BUN 7 - 21 mg/dL 11 Creatinine 0.58 - 0.96 mg/dL 0.77 EGFR >=60 mL/min/1.73m 93 Protein, Total 6.3 - 8.0 g/dL 7.3 Albumin 3.9 - 4.9 g/dL 4.5 Calcium 8.5 - 10.2 mg/dL 9.8 Bilirubin, Total 0.2 - 1.3 mg/dL 0.4 AST 13 - 35 U/L 11 ALT 7 - 38 U/L 11 Alkaline Phosphatase 34 - 123 U/L 81 Cholesterol, Total (mg/dL) Date Value 02/01/2024 162 07/31/2018 177 Total Cholesterol, Nonfasting (mg/dL) Date Value 03/03/2021 195 HDL Cholesterol (mg/dL) Date Value 02/01/2024 42 07/31/2018 43 HDL Cholesterol, Nonfasting (mg/dL) Date Value 03/03/2021 40 LDL Cholesterol, Calculated (mg/dL) Date Value 02/01/2024 104 07/31/2018 110 LDL Cholesterol Calculated, Nonfasting (mg/dL) Date Value 11/01/2022 115 03/03/2021 130 Triglyceride (mg/dL) Date Value 02/01/2024 80 07/31/2018 122 Triglycerides, Nonfasting (mg/dL) Date Value 03/03/2021 125 Latest Ref Rng & Units 05/21/2024 CBC WBC 3.70 - 11.00 k/uL 10.05 RBC 3.90 - 5.20 m/uL 4.60 Hemoglobin 11.5 - 15.5 g/dL 14.0 Hematocrit 36.0 - 46.0 % 42.6 MCV 80.0 - 100.0 fL 92.6 MCH 26.0 - 34.0 pg 30.4 MCHC 30.5 - 36.0 g/dL 32.9 RDW-CV 11.5 - 15.0 % 13.2 Platelet Count 150 - 400 k/uL 343 MPV 9.0 - 12.7 fL 10.2 Baso% % 0.7 Abs Neut (ANC) 1.45 - 7.50 k/uL 6.72 Abs Lymph 1.00 - 4.00 k/uL 2.37 Abs Meigs <0.87 k/uL 0.72 Abs Eosin <0.46 k/uL 0.14 Abs Baso <0.11 k/uL 0.07 NRBC /100 WBC 0.0 Vitamin D 25 Hydroxy Date Value Ref Range Status 04/18/2023 34.2 31.0 - 80.0 ng/mL Final Comment: Classification of 25 OH Vitamin D status: Deficiency/Insufficiency: < or = 30 ng/ml. Sufficiency/Optimal Levels: 31-80 ng/mL Toxicity: > 100 ng/mL. Test performed by chemiluminescent immunoassay. 01/21/2020 24.8 (L) 31.0 - 80.0 ng/mL Final Comment: Classification of 25 OH Vitamin D status: Insufficiency/Moderate Deficiency: < or = 30 ng/mL Sufficiency/Optimal Levels: 31 to 80 ng/mL Toxicity: > 100 ng/mL Test performed by chemiluminescent immunoassay. TSH Date Value 04/18/2023 1.460 mIU/L 05/03/2022 2.040 mIU/L 06/12/2020 2.680 uU/mL 04/14/2020 2.130 uU/mL ) Hemoglobin A1C (%) Date Value 02/01/2024 4.8 04/18/2023 5.4 11/01/2022 5.2 03/03/2021 5.1 01/21/2020 5.2 03/15/2018 4.8 Insulin Date Value Ref Range Status 02/01/2024 8.0 3.0 - 25.0 mU/L Final Assessment/Plan: Chika Good is a 52 year old yo with Class II obesity who presented today for follow up for supervised weight loss to treat and prevent related co-morbidities. 1. LITO (obstructive sleep apnea) (G47.33) - continue zepbound 2. Hyperinsulinemia (E16.1) 3. Insulin resistance (E88.819) - Recent labs show insulin level at 8, indicating significant improvement. - Continue current management with GLP-1 receptor agonist. 4. Vitamin D deficiency (E55.9) -continue vit D supplement 5. Gastroesophageal reflux disease without esophagitis (K21.9) - Continue Prilosec as needed 6. Hypercholesteremia (E78.00) - Recent lipid panel shows marked improvement. - Continue current dietary and exercise regimen. 7. Class 2 severe obesity with serious comorbidity and body mass index (BMI) of 35.0 to 35.9 in adult, unspecified obesity type (HCC) (E66.812) - Weight loss of 66 lbs achieved; BMI now within a healthier range. - Tolerating semaglutide 15 mg without adverse effects; continue current dosage. - Engaging in regular physical activity, including walking 4 miles daily and strength training 3 times a week. - Follow-up scheduled for December 03 at 0850 to monitor progress. -labs reviewed from PCP may 2024 8. Diarrhea, unspecified type (R19.7) - Chronic issue, occurring almost daily, 1-2 times per day. - Increasing dietary fiber intake to >25 grams per day. - Ensuring adequate hydration with at least 80 oz of fluids daily; recommended adding sugar-free sports drinks or Liquid IV hydration packs to maintain electrolyte balance. - An overall goal of 150-200 minutes per week of exercise has been effective in weight loss and maintenance. Prescription instructions reviewed with patient as applicable. Potential red flag symptoms discussed with the patient. Reviewed appropriate action plan to take if red flag symptoms occur. Patient agreeable to treatment plan. Follow up in November as scheduled, annual before that time. I spent a total of 33 minutes on the date of the service which included preparing to see the patient, [id number] patient care, completing clinical documentation, obtaining and/or reviewing separately obtained history, performing a medically appropriate examination, counseling and educating the patient/family/caregiver, and ordering medications, tests, or procedures. Kailyn Puckett MD, FACOG, DABLEAH documented in this encounter [facility] 07-10-2024 Note HNO ID: [id number] Author: KAILYN GILL MD Service: ? Author Type: Physician Type: Progress Notes Filed: 07/10/2024 16:35 Note Text: Some documentation from previous visit of 04/09/24 was copied and pasted, documentation has been reviewed and edited as necessary for today's visit. Patient Summary: Chika is a 53 year old Female who presents for follow-up evaluation of obesity/weight management to treat and prevent related co-morbidities. In our previous visits we have discussed lifestyle intervention including a nutrition recommendations and physical activity optimization. Her last office visit was 3 months ago. Assessment/plan from last visit: -Change zepbound to 10mg dosing due to severe food aversion - ZEPBOUND and LITO indication reviewed - stop metformin- last insulin level was 8 - Labs reviewed with patient - continue vit D supplement - continue with Whole foods, Low carb, High protein -Continue prilosec for GERD -Continue Lipitor for Hypercholesteremia - Reviewed previous labs- CMP, LIPIDS and INSULIN ordered. -has follow up with PCP for routine care - discussed Journaling how she is feeling so she remembers and helps continue healthy habits. -Continue with routine exercise Interval History PT specifies the following items as new or significant updates since the last appointment: - Has lost 66 lbs since starting weight management program. - Currently on 15 mg of Mounjaro, previously on 10 mg but increased dosage due to availability issues at the pharmacy. - Initially experienced food aversions on 15 mg but reports no current issues. - Reports daily diarrhea, 1-2 times per day, a chronic issue for her. - Taking psyllium husk and aiming for 25 grams of fiber per day, usually achieving around 20 grams. - Drinking approximately 80 ounces of water daily. - Colonoscopy performed recently, no concerns about diarrhea from her reproductive healthcare assistant. - Reports significant improvement in overall well-being, stating, I feel great every day. - Engages in regular physical activity, walking 4 miles daily and strength training 3 days a week. - Not tracking food intake but follows a consistent dietary routine. - Breakfast: Two hard-boiled eggs and yogurt with harley seeds and 5 mg of creatine. - Lunch: Leftovers, often rotisserie chicken mixed with chickpeas, cucumber, quinoa, lemon juice, and olive oil. - Afternoon snack: Protein shake. - Dinner: Prepared by her partner, usually filet or Szechuan chicken with a small portion of rice and cabbage. - Incorporates vegetables into every meal. - Reports no cravings for sugar and consumes small portion sizes. - Hair loss has ceased, which she attributes to the stabilization of her weight. Weight loss since last vist: 7 lb Total weight lost: 66 lb - Last Wt 07/10/24 168 lb 04/05/24 175 lb 01/03/24 192 lb 10/20/23 198 lb 08/30/23 215 lb 07/12/23 224 lb STARTING WEIGHT 05/30/23 234 lb (106.1 kg) 5% weight loss = 218 lbs, 10% weight loss = 206 lbs GOAL weight: 150LBS Anti-obesity medications: Tirzepatide (Zepbound). Benefit:decreased food noise , decreased appetite, Adverse effects: none Anti-obesity medications: Metformin. -stopped Benefit:elevated insulin (86) Adverse effects: none Weight promoting medications: Inhaled corticosteroid Previous Diet (initial appointment): Wakes up: 5:30am- black coffee - drinks until lunch time Breakfast- 9am- Della cottage cheese pineapple and harley seeds, pea protein powder Lunch- seed 70cal nhi killer- Rotisserie chicken, garlic coffee Edamame, grapes (10) Dinner- Bonza chickpea pasta, chicken pasta, pepper, with veggies or schezwan chicken with white rice. Red cabbage with rice vinegar Snacks- sometimes chips, beef stick, cheese, Diet/Nutrition overview: Fluids: water (80-120oz) , black coffee 6cups Quality of diet: 24hr recall suggests in between diet. Characterization of diet:Structured. Sleeve Setter Safety Stitch of impaired eating habits:excessive hunger, emotion, and stress Eating Disorder no Preferred foods: Cravings: salty Nutrition Now: same B- 2 hard boiled eggs and yogurt with creatine and harley seeds L- Left overs- Rotissere chicken, chick peas, quinoa, lemon juice S- Shake ( owyn 32g) , nuts D- meat- Filet, chicken dish, small rice, cabbage and vegetable (broccoli), Dietary changes: Eating 3 meals a day, including breakfast Increasing water intake Controlling portions Identify hunger and satiety cues Increasing protein Reducing carbohydrates Current Barriers: inadequate sleep duration/QUALITY Exercise: walking 4 miles per day 6-7 days week- walking and steps, weight training. , feeling stronger. Stress: stable Sleep: stable but up multiple times 8 hours. LITO YES ; CPAP yes - NOT USING (01/02) Estimated Creatinine Clearance: 83.5 mL/min (based on SCr of 0.77 mg/dL). PAST MEDICAL HISTORY Diagnosis Date Abnorma (more content not included)... [facility] 07-05-2024 Note HNO ID: [id number] Author: ANAY BARCLAY APRN.REPAIRER SHOE STICKS Service: ? Author Type: Nurse Practitioner Type: Progress Notes Filed: 07/08/2024 11:42 Note Text: COLORECTAL SURGERY Post-Op Visit July 05, 2024 Chika Good returns for a post-operative visit after undergoing a colonoscopy and fistulotomy performed by Dr. Bolaños on June 21, 2024. Patient reports a significantly improved recovery experience compared to her previous hemorrhoidectomy performed on February 21, 2024. She attributes this to the numbing and nerve-blocking agents used during the recent procedure, which provided effective pain relief for the first few days post-operatively. As these agents wore off, she experienced minimal discomfort. She expresses high satisfaction with Dr. Bolaños's care, noting his excellent bedside manner and compassionate approach. Since the surgery, patient reports no pain and has not required any pain medications. She denies any drainage from the surgical site and notes only mild itching in the rectal area, which is less than before the procedure and is managed with barrier cream. She has resumed normal activities, including walking and lifting weights, and reports feeling great with good energy levels. She denies nausea, vomiting, fever, or chills. Patient takes a psyllium husk fiber supplement to bulk up her stool, as she tends to experience diarrhea after eating. She reports having 3-4 bowel movements per day, which she feels is too many. She describes a sensation of incomplete evacuation and occasional false alarms, which she attributes to spasming. She recalls an episode four days ago where she had a sudden urge to defecate in public and experienced a small accident despite clenching. Patient has a significant family history of colorectal cancer on both sides of her family. Her father was diagnosed with colon cancer at age 53 and had half of his colon removed; he is still alive. Her paternal uncle was diagnosed with colon cancer in his late 60s and at age 67. Her paternal grandfather also had colon cancer and in his 80s. On her mother's side, her maternal grandfather of colon cancer at age 65, and three of his siblings also of colon cancer. Patient has one daughter, aged 16, who has not had any GI issues. Past Diagnostic Results: - Colonoscopy (June 21, 2024): One 8mm transverse polyp removed by cold snare; pathology showed precancerous changes. Fistula unroofed and curetted using cautery. - Hemorrhoidectomy (February 21, 2024): Performed by Dr. Newsome. Current pain medications: None Current bowel related medications: Psyllium husk Bowel movement frequency: 1-3/day Current Outpatient Medications Medication Sig Dispense Refill tirzepatide, weight loss (ZEPBOUND) 10 mg/0.5 mL pen injector Inject 10 mg subcutaneously one time a week. 2 mL 2 omeprazole (PRILOSEC) 40 mg capsule Take 1 capsule by mouth once daily. 90 capsule 1 Norethindrone, Contraceptive, 0.35 mg tablet Take 1 tablet by mouth once daily. ADELINA 0.0375 mg/24 hr estradiol (ESTRACE) 0.01 % (0.1 mg/gram) vaginal cream atorvastatin (LIPITOR) 20 mg tablet Take 1 tablet by mouth daily at bedtime. For cholesterol. 90 tablet 1 fluticasone-salmeterol (ADVAIR DISKUS) 250-50 mcg/dose inhaler Inhale 1 Puff as instructed two times a day. Rinse and gargle mouth after use with water. 3 Each 1 albuterol HFA (VENTOLIN HFA) 90 mcg/actuation inhaler Inhale 2 Puffs as instructed every 4 hours as needed. 24 g 1 CHOLECALCIFEROL, VITAMIN D3, ORAL Take by mouth as directed. Combined with omega 3 No current facility-administered medications for this visit. ALLERGIES No Known Allergies LMP 06/11/2024 (Approximate) Sensitive Exam: yes, Participation of a fellow, resident, medical student, or advanced practice provider student in performing the sensitive examination was discussed with the patient or authorized contact center representative. The patient or authorized contact center representative has agreed to proceed with the sensitive examination. Physical Exam: General: Awake, alert, well-appearing, no acute distress Abdominal: Soft, non-tender Abdominal examination: soft, non-distended, and non-tender without masses or hernias. Wound is well healed. Anorectal: Perianal skin is intact. No erythema, induration or excoriation. No fissure or external hemorrhoids. Hemorrhoidectomy scar visible anteriorly. Financial Systems Analyst present: Yes Patient Entered Questionnaires PROMIS Global Health Physical Health Summary Physical health: Everyday physical activity, ability: Fatigue: Pain level: General health: Social activities/roles, ability: Physical Health T-Score Physical Health Percentile No data recorded PROMIS Global Health Mental Health Summary Quality of life: Mental health (mood,thinking): Social satisfaction: Emotional problems (anxious,depressed): Mental Health T-Score Mental Hea (more content not included)... [facility] 06-21-2024 Note HNO ID: [id number] Author: LAAMR RICE APRN.CRNA Service: ? Author Type: Nurse Telegraph Plant Maintainer Type: Anesthesia Procedure Notes Filed: 06/21/2024 09:42 Note Text: ANESTHESIOLOGY PROCEDURE NOTE Airway General Information Procedure Start Time/Medication Administration: 06/21/2024 9:25 AM Procedure End Time: 06/21/2024 9:26 AM Patient location during procedure: OR Timeout Performed Pre-procedure: timeout performed Consent Obtained: Yes Patient identity confirmed: arm band, care service team leader and patient Staffing FOOD SERVICE UTILITY WORKER: Lamar Rice APRN.FOOD SERVICE UTILITY WORKER Performed by: FOOD SERVICE UTILITY WORKER Indications and Patient Condition Indications for airway management: anesthesia Preoxygenated: yes anesthesia circuit Patient position: sniffing Method: asleep Cricoid Pressure: No Difficult Mask: No Final Airway Details Final airway type: supraglottic airway Number of attempts at approach: 1 Final Supraglottic Airway: i-gel Size 4 Seal Adequate: yes Failed airway: no Airway not difficult SIGNATURE: Lamar Rice APRN.FOOD SERVICE UTILITY WORKER PATIENT NAME: Chkia Good DATE: June 21, 2024 TIME: 9:40 AM CSN: [id number] [facility] 06-12-2024 Instructions Anay Barclay APRN.REPAIRER SHOE STICKS - 06/12/2024 11:07 AM EDT Images from the original note were not included. We discussed your rectal pain and drainage: - You have a superficial anal fistula that has not healed on its own. While it is not currently infected and appears less inflamed than before, the fistula is still present and extends deeper than initially thought. - We will proceed with an exam under anesthesia (EUA), fistulotomy, and colonoscopy on , the . These procedures will address the fistula and complete your scheduled colonoscopy. - The fistulotomy will involve opening the fistula tract, which will leave a wound that should heal quickly. The procedure does not appear to involve any muscle, which reduces the risk of complications. We discussed preparation for your colonoscopy: - You will use the CLENPIQ prep for bowel preparation. I will send the instructions to your MyChart for reference. - Brenda attached a coupon to reduce the cost. I will call the prescription back into your pharmacy. We reviewed your medications: - Continue taking your current medications, including Lipitor, Vitamin D, vaginal estradiol cream, Advair Diskus, Prilosec, and terzepatide. - You do not need to bring your albuterol inhaler on the day of the procedure. -You have stopped you Zepbound and will not start again until after your procedure. Follow-up: - Your procedure is scheduled for , the . Please ensure your accompanies you, as you will not be able to drive or remember details after the procedure. -Dr. Bolaños will speak with your after the procedure to review the results and next steps. - If you have any questions or concerns before the procedure, please reach out through [facility]. Thank you for coming in today. I look forward to seeing you on the . documented in this encounter [facility] 06-12-2024 History of Present illness Narrative COLORECTAL SURGERY Follow-up June 08, 2024 Chief complaint:pre procedure visit for fistulotomy and colonoscopy HPI: Chika Good is a 53-year-old female presenting for a pre procedure visit for possible fistulotomy and colonoscopy by Dr. Bolaños. She has a history of an external hemorrhoidectomy performed by Dr. Newsome on February 21, 2024, followed by significant postoperative pain. Patient reported ongoing discomfort and small amounts of pus from an external sinus area. She was evaluated again by Dr. Pepe on May 11, at which time an exam under anesthesia and fistulotomy were recommended. On 05/21/[address] Bolaños for a second opinion. At that time she was complaining of recurrent anal itching and rectal pain with some leakage and apparent sinus vs/fistula adjacent to hemorrhoidectomy scar. It was recommended to proceed with a EUA with fistulotomy versus seton placement depending on the degree of muscle involvement and perform a colonoscopy at the same time. Today, she notes that her drainage has ceased, and she is currently pain-free, leading her to question whether the fistula could heal spontaneously and if the scheduled surgery could be canceled. Patient reports that her symptoms began approximately two years ago, initially presenting as itching and a small lump on the rectum. She monitored the lump for several months, during which it increased in size. Her primary care physician prescribed a steroid suppository, which alleviated the itching but did not reduce the size of the lump. She was subsequently referred to Dr. Newsome, who diagnosed her with a hemorrhoid and performed banding. Banding was unsuccessful and on 02/20/2025 she had a hemorrhoidectomy. Patient denies experiencing shortness of breath, chest pain, or abdominal pain. She is currently taking an albuterol inhaler, Lipitor, vitamin D, Advair Diskus, Prilosec, and terzepatide. She also uses a progesterone patch and pill, as well as a vaginal estradiol cream. She has no known allergies. Physical Exam: Sensitive Exam: yes, Participation of a fellow, resident, medical student, or advanced practice provider student in performing the sensitive examination was discussed with the patient or authorized contact center representative. The patient or authorized contact center representative has agreed to proceed with the sensitive examination. LMP 04/28/2024 (Exact Date) General - awake, alert, no acute distress Abdominal - soft non-tender Anorectal: Perianal skin is intact. Small external sinus opening is noted, superficial fistula tract is present. No erythema, swelling, tenderness, induration, or excoriation. No external hemorrhoids. Digital Rectal Exam: deferred Financial Systems Analyst present: Yes, Lady PUENTE and Dr. Bolaños Medical Decision Making: Assessment/Plan 1. Pre-op exam (Z01.818) Anorectal fistula (K60.50) Anal fistula (K60.30) Patient presents for pre-operative evaluation. Examination reveals a superficial anal fistula with a small opening, no signs of infection or inflammation. Fistula tract is still present and extends deeper than initially visible, but does not appear to involve any muscle tissue. - Proceed with EUA and fistulotomy scheduled for 06/21. - Discussed procedure details, including potential for abscess formation if left untreated. - Will perform fistulotomy to divide the fistula tract, expected to heal quickly post-procedure. - Patient's will accompany her on the day of the procedure; will provide post-operative instructions to him. 2. Encounter for screening colonoscopy (Z12.11) Patient is due for a screening colonoscopy. - Perform colonoscopy concurrently with EUA and fistulotomy on 06/21. - Patient to use Clenpiq; will send instructions via [employer]. - Will inquire about a coupon for Clenpiq and notify patient if available. Follow-up: - Your procedure is scheduled for June 21. Please ensure your accompanies you, as you will not be able to drive or remember details after the procedure. - Dr. Bolaños will speak with your after the procedure to review the results and next steps. -Your CLENPIQ prep was called into your pharmacy. I attached a coupon to your AVS. - If you have any questions or concerns before the procedure, please reach out through [employer]. Thank you for coming in today. I look forward to seeing you on the . Data Reviewed: Tests & Documents Reviewed/ordered: Review of prior notes from 05/21/2024 I have discussed Chika Good's treatment plan and/or results with Dr. Bolaños . Anay Barclay APRN.JESICA Risk of morbidity, mortality and/or complications of treatment plan: low documented in this encounter [facility] 06-12-2024 Note HNO ID: [id number] Author: ANAY BARCLAY APRN.JESICA Service: ? Author Type: Nurse Practitioner Type: Progress Notes Filed: 06/12/2024 12:04 Note Text: COLORECTAL SURGERY Follow-up June 08, 2024 Chief complaint:pre procedure visit for fistulotomy and colonoscopy HPI: Chika Good is a 53-year-old female presenting for a pre procedure visit for possible fistulotomy and colonoscopy by Dr. Bolaños. She has a history of an external hemorrhoidectomy performed by Dr. Newsome on February 21, 2024, followed by significant postoperative pain. Patient reported ongoing discomfort and small amounts of pus from an external sinus area. She was evaluated again by Dr. Pepe on May 11, at which time an exam under anesthesia and fistulotomy were recommended. On 05/21/[address] Bolaños for a second opinion. At that time she was complaining of recurrent anal itching and rectal pain with some leakage and apparent sinus vs/fistula adjacent to hemorrhoidectomy scar. It was recommended to proceed with a EUA with fistulotomy versus seton placement depending on the degree of muscle involvement and perform a colonoscopy at the same time. Today, she notes that her drainage has ceased, and she is currently pain-free, leading her to question whether the fistula could heal spontaneously and if the scheduled surgery could be canceled. Patient reports that her symptoms began approximately two years ago, initially presenting as itching and a small lump on the rectum. She monitored the lump for several months, during which it increased in size. Her primary care physician prescribed a steroid suppository, which alleviated the itching but did not reduce the size of the lump. She was subsequently referred to Dr. Newsome, who diagnosed her with a hemorrhoid and performed banding. Banding was unsuccessful and on 02/20/2025 she had a hemorrhoidectomy. Patient denies experiencing shortness of breath, chest pain, or abdominal pain. She is currently taking an albuterol inhaler, Lipitor, vitamin D, Advair Diskus, Prilosec, and terzepatide. She also uses a progesterone patch and pill, as well as a vaginal estradiol cream. She has no known allergies. Physical Exam: Sensitive Exam: yes, Participation of a fellow, resident, medical student, or advanced practice provider student in performing the sensitive examination was discussed with the patient or authorized contact center representative. The patient or authorized contact center representative has agreed to proceed with the sensitive examination. LMP 04/28/2024 (Exact Date) General - awake, alert, no acute distress Abdominal - soft non-tender Anorectal: Perianal skin is intact. Small external sinus opening is noted, superficial fistula tract is present. No erythema, swelling, tenderness, induration, or excoriation. No external hemorrhoids. Digital Rectal Exam: deferred Financial Systems Analyst present: Yes, Lady PUENTE and Dr. Bolaños Medical Decision Making: Assessment/Plan 1. Pre-op exam (Z01.818) Anorectal fistula (K60.50) Anal fistula (K60.30) Patient presents for pre-operative evaluation. Examination reveals a superficial anal fistula with a small opening, no signs of infection or inflammation. Fistula tract is still present and extends deeper than initially visible, but does not appear to involve any muscle tissue. - Proceed with EUA and fistulotomy scheduled for 06/21. - Discussed procedure details, including potential for abscess formation if left untreated. - Will perform fistulotomy to divide the fistula tract, expected to heal quickly post-procedure. - Patient's will accompany her on the day of the procedure; will provide post-operative instructions to him. 2. Encounter for screening colonoscopy (Z12.11) Patient is due for a screening colonoscopy. - Perform colonoscopy concurrently with EUA and fistulotomy on 06/21. - Patient to use Clenpiq; will send instructions via [employer]. - Will inquire about a coupon for Clenpiq and notify patient if available. Follow-up: - Your procedure is scheduled for , June 21. Please ensure your accompanies you, as you will not be able to drive or remember details after the procedure. - Dr. Bolaños will speak with your after the procedure to review the results and next steps. -Your CLENPIQ prep was called into your pharmacy. I attached a coupon to your AVS. - If you have any questions or concerns before the procedure, please reach out through [employer]. Thank you for coming in today. I look forward to seeing you on the . Data Reviewed: Tests AND Documents Reviewed/ordered: Review of prior notes from 05/21/2024 I have discussed Chika Good's treatment plan and/or results with Dr. Bolaños . Anay Barclay, MIRACLE.REPAIRER SHOE STICKS Risk of morbidity, mortality and/or complications of treatment plan: low [facility] 05-21-2024 Note HNO ID: [id number] Author: REGIS FONSECA RN Service: ? Author Type: Registered Nurse Type: Progress Notes Filed: 05/21/2024 09:58 Note Text: ---- Summary: Zaire Cruz ---- COLON AND RECTAL SURGERY Nursing Education Visit Chika Good 1970 Surgeon: Hannah Bolaños Reason for Education: [x] Prep for Surgery [x] Wound care [x] Activity [x] Bowel habits and medications [x] Additional questions about surgery [x] Nutrition / Diet [] Stoma care / function [x] Other Present for Education: Patient Surgery: Exam under anesthesia, possible fistulotomy, possible seton placement. Colonoscopy with possible biopsy/polypectomy Patient's overall appearance: GENERAL APPEARANCE: healthy, alert, no distress, cooperative, smiling The following details surrounding surgery were discussed: Preoperative prep: Mechanical Length of hospital stay: OP Anticipated diet at time of discharge from the hospital: Regular Anticipated activity restrictions at time of discharge from the hospital: Continue all normal activities and exercise. Specific questions and topics discussed with the patient: Bowel pre- Clenpiq or Miralax- instructions verbalized and handouts provided Outpatient procedure Transportation DOS contact information provided Map provided Follow up post- procedure discussed Recovery Carla-care, hygiene Drainage Bowel habits Pain control Office contact information provided Prior to surgery, the following consults have been requested: ZAIRE Nurse Pre-op and Pre-op Clinic Prior to surgery, the following lab tests have been ordered: BMP, CBC, Type AND Screen Additional counseling AND materials provided: Patient given verbal and written preop instructions and voices comprehension and compliance. [x]Pre-op handout [x]Bowel prep instructions [x]Diet education handout [x]Surgical approach information [x]Surgeon specific instructions [x]Facility directions / map Regis Fonseca RN Time spent on patient education: 20 minutes [facility] 05-21-2024 History of Present illness Narrative Summary: Zaire Cruz COLON & RECTAL SURGERY Nursing Education Visit Chika Good 1970 Surgeon: Hannah Bolaños Reason for Education: [x] Prep for Surgery [x] Wound care [x] Activity [x] Bowel habits and medications [x] Additional questions about surgery [x] Nutrition / Diet [] Stoma care / function [x] Other Present for Education: Patient Surgery: Exam under anesthesia, possible fistulotomy, possible seton placement. Colonoscopy with possible biopsy/polypectomy Patient's overall appearance: GENERAL APPEARANCE: healthy, alert, no distress, cooperative, smiling The following details surrounding surgery were discussed: Preoperative prep: Mechanical Length of hospital stay: OP Anticipated diet at time of discharge from the hospital: Regular Anticipated activity restrictions at time of discharge from the hospital: Continue all normal activities and exercise. Specific questions and topics discussed with the patient: Bowel pre- Clenpiq or Miralax- instructions verbalized and handouts provided Outpatient procedure Transportation DOS contact information provided Map provided Follow up post- procedure discussed Recovery Carla-care, hygiene Drainage Bowel habits Pain control Office contact information provided Prior to surgery, the following consults have been requested: ZAIRE Nurse Pre-op and Pre-op Clinic Prior to surgery, the following lab tests have been ordered: BMP, CBC, Type & Screen Additional counseling & materials provided: Patient given verbal and written preop instructions and voices comprehension and compliance. [x]Pre-op handout [x]Bowel prep instructions [x]Diet education handout [x]Surgical approach information [x]Surgeon specific instructions [x]Facility directions / map Regis Fonseca RN Time spent on patient education: 20 minutes documented in this encounter [facility] 05-21-2024 History and physical note COLORECTAL SURGERY New Patient Visit May 21, 2024 Chief Complaint: Hemorrhoids History of Present Illness: Chika Good is a 53 year old female referred by SELF for second opinion of rectal pain and drainage. Ms. Good is S/p EUA, external hemorrhoidectomy by Dr. Pepe on 02/21/24. The patient noted significant pain following the procedure. The patient currently notes continued discomfort and occasionally a small drop of pus from an external sinus. Was seen in follow up 05/11 with concern for sinus at site of hemorrhoidectomy. Recommend an exam under anesthesia and fistulotomy. Referred here for 2nd opinion. She has been following with Dr. Pepe. She first noticed the onset of anal itching 2 years ago. She then noticed a tiny bump on her rectum when she was in the shower. She monitored it for a while, then noticed an increase in size 6 months later. She consulted her PCP where she was prescribed a steroid suppository that stopped the itching, but the itching resurfaced when she stopped the suppositories. She then saw Dr. Pepe for hemorrhoids that were causing pain/itching but no bleeding. She reports they banded it twice. She said 1-2 days after the banding, it fell off but the hemorrhoids were still present. Was recommended excision due to the unsuccessful response to the banding as she was still having itching. Had severe pain following hemorrhoidectomy that slowly subsided. A few weeks after hemorrhoidectomy, she noticed the itching again and now has recently been having pain again. Other symptoms she reported include a severe stinging sensation and difficulty with BMs due to pain. She consulted dermatology and her PCP again who noticed the sinus tract. Dr. Pepe examined her and said she may have a fistula and she would need a possible fistulotomy which prompted her to want a second opinion here. 2 episodes of partial fecal incontinence. One last week in the middle of the day with liquid stool. She has brownish-yellow leakage of pus from the tract. She has loose, but not liquid stool. Has frequent bowel movements 3-5 times daily. She takes a fiber supplement which seems to help. Colon cancer prevalent on paternal side. Dad dx. at 52. [facility] Examination under anesthesia and single quadrant Hemorrhoidectomy, 02/21/24- Dr. Pepe DESCRIPTION OF PROCEDURE: Sign-in was performed verifying patient site, procedure, position, critical nursing information, VTE, and antibiotic prophylaxis. The patient received 900 mg of clindamycin and sequential compression devices placed. Following induction of general/LMA anesthesia, the patient was positioned in modified lithotomy. The perianal area was prepped and draped in usual fashion. Time-out was performed verifying patient, site, procedure, position. By digital exam revealed the anterior external hemorrhoidal complex otherwise normal sized mixed hemorrhoidal complex of the right posterior left lateral position. Anoscopy demonstrated no internal anal abnormalities. At this point, the planned right anterior hemorrhoid was grasped for planned resection margins with hemostats in the lateral anoderm. Small Bella was used to grab the body of the hemorrhoid and a 2nd hemostat placed on the apex. A scalpel was used to cut the anoderm and the hemorrhoidal complex was dissected off the underlying perianal skin. External sphincter was identified and the hemorrhoid complex was dissected off the external sphincter using back of a scalpel. Then, used electrocautery to divide the anoderm up to the apex of the planned resection. The hemorrhoid was amputated and sent for pathology. 2-0 chromic [id number] sutures placed over the apex with a running locking transition to a simple suture was used to close the mucosal defect. There was good hemostasis at this point. Exparel was injected around the incision and perianally, total of 9 mL. Dibucaine-impregnated Gelfoam was placed in the anal canal. The area was cleaned up. A dressing applied with mesh pants, carla-pad, and held in place with elastic pants. The patient was then taken out of lithotomy, extubated, and brought to recovery room in a stable condition. FINAL DIAGNOSIS A. Hemorrhoids, hemorrhoidectomy: - Skin with dilated/congested blood vessels, hemorrhage and reactive changes. Imaging/Endoscopy Reviewed 02/04/20 Colonoscopy- Dr. Pepe Findings: The perianal and digital rectal examinations were normal. A 6 mm polyp was found in the rectum. The polyp was sessile. The polyp was removed with a cold biopsy forceps. Resection and retrieval were complete. The exam was otherwise without abnormality on direct and retroflexion views. FINAL DIAGNOSIS 5. Rectum, polypectomy (E): Hyperplastic polyp. 02/04/20 EGD- Dr. Pepe Findings: The examined jejunum was normal. The examined duodenum was normal. Localized mild inflammation characterized by erosions and erythema was found in the gastric antrum. Biopsies were taken with a cold forceps for histology. A small hiatal hernia was present. Non-severe esophagitis with no bleeding was found. Multiple sessile polyps with no bleeding and no stigmata of recent bleeding were found in the gastric fundus. Biopsies were taken with a cold forceps for histology. FINAL DIAGNOSIS 1. Mid esophagus, biopsy (A): Squamous mucosa with no significant pathologic abnormality. 2. Gastroesophageal junction, biopsy (B): Squamous mucosa with mild reactive changes. 3. Stomach, biopsy (C): Gastric-type mucosa with intestinal metaplasia; no dysplasia. 4. Stomach, polypectomy (D): Fundic gland polyp. PAST MEDICAL HISTORY Diagnosis Date Abnormal glandular Papanicolaou smear of cervix Abn. Pap smear (cervix) Acute gastritis without mention of hemorrhage Allergic rhinitis, seasonal Anxiety 07/07/2012 Chronic tension-type headache, intractable 03/17/2016 Depression 07/07/2012 Encounter for routine gynecological examination 01/21/[address] 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 Vitamin D deficiency 08/29/2023 Well adult exam 01/21/2020 Last done 10/26/21 PAST SURGICAL HISTORY Procedure Laterality Date ADENOIDECTOMY PRIMARY Adenoidectomy BREAST REDUCTION 09/2016 BX BREAST W/DEVICE 1ST LESION ULTRASOUND GUID Left 05/03/2015 U/S Needle core upper mid left breast DELIVERY ONLY 11/2007 [facility] COLONOSCOPY FLX DX W/COLLJ SPEC WHEN PFRMD 2003 Colonoscopy COLONOSCOPY FLX DX W/COLLJ SPEC WHEN PFRMD 08/21/2008 Colonoscopy COLONOSCOPY FLX DX W/COLLJ SPEC WHEN PFRMD 01/14/2015 COLONOSCOPY FLX DX W/COLLJ SPEC WHEN PFRMD 02/04/2020 Colonoscopy- repeat 5 year CONIZATION CERVIX W/WO D&C RPR ELTRD EXC 1993 LEEP-Cervix D&C, DIAG AND/OR THERAPEUTIC 12/2021 EGD 1991 REMOVAL OF FOREIGN BODY EGD TRANSORAL BIOPSY SINGLE/MULTIPLE 06/12/2008 ESOPHAGOGASTRODUODENOSCOPY TRANSORAL DIAGNOSTIC 05/16/2017 EGD ESOPHAGOGASTRODUODENOSCOPY TRANSORAL DIAGNOSTIC 02/04/2020 EGD- repeat in 1 year ESOPHAGOSCOPY FLEX BALLOON DILAT <30 MM DIAM 06/12/2008 SEPTOPLASTY 08/29/2017 Dr. Manny Sexton-nasal airway obstruction. deviated septum, inferior turbinate hypertrophy TONSILLECTOMY PRIMARY/SECONDARY Tonsillectomy Current Outpatient Medications Medication Sig Dispense Refill tirzepatide, weight loss (ZEPBOUND) 10 mg/0.5 mL pen injector Inject 10 mg subcutaneously one time a week. 2 mL 2 metFORMIN ER (GLUCOPHAGE XR) 500 mg 24 hr tablet Take 2 tablets by mouth daily with dinner. (Patient not taking: Reported on 05/11/2024) 180 tablet 1 omeprazole (PRILOSEC) 40 mg capsule Take 1 capsule by mouth once daily. 90 capsule 1 ondansetron (ZOFRAN) 4 mg tablet Take 1 tablet by mouth every 8 hours as needed for nausea/vomiting for up to 30 doses. (Patient not taking: Reported on 05/11/2024) 30 tablet 1 Norethindrone, Contraceptive, 0.35 mg tablet Take 1 tablet by mouth once daily. ADELINA 0.0375 mg/24 hr estradiol (ESTRACE) 0.01 % (0.1 mg/gram) vaginal cream atorvastatin (LIPITOR) 20 mg tablet Take 1 tablet by mouth daily at bedtime. For cholesterol. 90 tablet 1 fluticasone-salmeterol (ADVAIR DISKUS) 250-50 mcg/dose inhaler Inhale 1 Puff as instructed two times a day. Rinse and gargle mouth after use with water. 3 Each 1 albuterol HFA (VENTOLIN HFA) 90 mcg/actuation inhaler Inhale 2 Puffs as instructed every 4 hours as needed. 24 g 1 CHOLECALCIFEROL, VITAMIN D3, ORAL Take by mouth as directed. Combined with omega 3 DUPIXENT SYRINGE 300 mg/2 mL injection Inject 300 mg subcutaneously every 2 weeks. (Patient not taking: Reported on 04/09/2024) No current facility-administered medications for this visit. ALLERGIES No Known Allergies Review of Systems / PACC screen: Do you have difficulty climbing a full flight of stairs without feeling short of breath? no Do you require oxygen for your breathing or have your gone to an emergency department because of breathing problems? no Are you on dialysis or have you been told that your kidneys do not work well as they should? no Do have an implanted cardiac device (pacemaker, defibrillator etc.) that has not been checked in the last 6 months? no Have you had an organ transplant? no Have you been told that you had excessive bleeding during surgical procedures or do you take blood thinning medications other than aspirin? no Have you ever had a heart attack, heart stents/surgery, valve problems, or other heart problems? no Have you had a stroke, seizures, or unexplained loss of consciousness? no Do you have a neurologic condition like Parkinson's disease or multiple sclerosis? no Have you or a blood relative had a life-threatening reaction to anesthesia? no Do you have cirrhosis of the liver or other liver disease? no Have you had a blood clot within the past year? no Do you take insulin or other injections for diabetes? no Do you have sleep apnea or have you been told you may have sleep apnea? Yes Do you have other implanted devices (deep brain stimulator, spinal cord stimulator, etc.)? no Physical Exam: Sensitive Exam: yes, Participation of a fellow, resident, medical student, or advanced practice provider student in performing the sensitive examination was discussed with the patient or authorized contact center representative. The patient or authorized contact center representative has agreed to proceed with the sensitive examination. (Sensitive examination includes inspection and/or palpation of the breasts, pelvis, prostate and anorectal regions) BP 111/68 Pulse 84 Temp 36.2 C (97.2 F) (Temporal) Ht 160 cm (5' 3) Wt 78 kg (172 lb) LMP 04/28/2024 (Exact Date) SpO2 97% BMI 30.47 kg/m General Appearance: Well appearing, alert, in no acute distress, well-hydrated, well nourished. Lungs: Lungs clear to auscultation. No wheezing, rhonchi, rales. Unlabored on room air Heart: Not examined Abdomen: Not reviewed Anorectal: Perianal skin is intact. No erythema, induration or excoriation. No fissure or external hemorrhoids. Hemorrhoidectomy scar visible anteriorly. Small external opening just left of anterior midline. Probe inserted for ~ 1 cm towards anal canal. Appears superficial. Digital Rectal Exam: Anus: closed Resting tone: NORMAL Squeeze tone: NORMAL Financial Systems Analyst present: Yes, Coni Rodriguez Assessment Medical Decision Making: Assessment & Diagnosis: Chika Good is a 53 year old female with hx of symptomatic hemorrhoids that did not response to conservative measures and RBL, s/p EUA and excision of right anterior anal hemorrhoid 02/21/2024 at [facility]. Now with recurrent anal itching and rectal pain with some leakage and apparent sinus vs/ fistula tract adjacent to hemorrhoidectomy scar that appears superficial. Screening colonoscopy due this year, family hx of colon cancer. Data Reviewed: Tests & Documents Reviewed/ordered: Review of prior notes from previous encounters, all available within [facility] Review of prior operative reports Review of Pathology Review of Labs: CBC, BMP, most recent in [facility] Review of Procedures / Tests: Colonoscopy, EGD Assessment by: [facility] Team I have independently interpreted: photos in chart, colonoscopy I have discussed Chika Good's treatment plan and/or results with the patient. Treatment plan: Discussed that her current symptoms are likely related to drainage from fistula tract. Agree with Dr. Newsome and recommend EUA with fistulotomy versus seton placement depending on degree of muscle involvement. It appears superficial and will likely be appropriate for fistulotomy. Can do colonoscopy at same time since she is due this year for increased-risk screening. Discussed risks, benefits, and alternatives of fistulotomy vs seton placement and colonoscopy in detail. Including risks related to anesthesia, bleeding infection, sphincter injury, recurrence. Obtained consent today. - try applying a layer of Calmoseptine regularly, a barrier ointment, to mitigate itching related to moisture - try using Immodium daily to decrease the frequency of BM and to firm stool, while avoiding hard stool. - continue to use bidet for perianal hygiene Risk of morbidity, and/or complications of treatment plan: low By signing my name below, I, Roya Amador, attest that this documentation has been prepared under the direction and in the presence of Dr. Bolaños. Electronically signed, Liv Perea May 21, 2024 9:16 AM Patient was seen and examined and I confirmed and edited as necessary, findings on history, PFSH, examination, and ROS obtained by others as noted above. Hannah Bolaños MD Colorectal Surgery May 21, 2024 [facility] 05-21-2024 History and physical note COLORECTAL SURGERY New Patient Visit May 21, 2024 Chief Complaint: Hemorrhoids History of Present Illness: Chika Good is a 53 year old female referred by SELF for second opinion of rectal pain and drainage. Ms. Good is S/p EUA, external hemorrhoidectomy by Dr. Pepe on 02/21/24. The patient noted significant pain following the procedure. The patient currently notes continued discomfort and occasionally a small drop of pus from an external sinus. Was seen in follow up 05/11 with concern for sinus at site of hemorrhoidectomy. Recommend an exam under anesthesia and fistulotomy. Referred here for 2nd opinion. She has been following with Dr. Pepe. She first noticed the onset of anal itching 2 years ago. She then noticed a tiny bump on her rectum when she was in the shower. She monitored it for a while, then noticed an increase in size 6 months later. She consulted her PCP where she was prescribed a steroid suppository that stopped the itching, but the itching resurfaced when she stopped the suppositories. She then saw Dr. Pepe for hemorrhoids that were causing pain/itching but no bleeding. She reports they banded it twice. She said 1-2 days after the banding, it fell off but the hemorrhoids were still present. Was recommended excision due to the unsuccessful response to the banding as she was still having itching. Had severe pain following hemorrhoidectomy that slowly subsided. A few weeks after hemorrhoidectomy, she noticed the itching again and now has recently been having pain again. Other symptoms she reported include a severe stinging sensation and difficulty with BMs due to pain. She consulted dermatology and her PCP again who noticed the sinus tract. Dr. Pepe examined her and said she may have a fistula and she would need a possible fistulotomy which prompted her to want a second opinion here. 2 episodes of partial fecal incontinence. One last week in the middle of the day with liquid stool. She has brownish-yellow leakage of pus from the tract. She has loose, but not liquid stool. Has frequent bowel movements 3-5 times daily. She takes a fiber supplement which seems to help. Colon cancer prevalent on paternal side. Dad dx. at 52. [facility] Examination under anesthesia and single quadrant Hemorrhoidectomy, 02/21/24- Dr. Pepe DESCRIPTION OF PROCEDURE: Sign-in was performed verifying patient site, procedure, position, critical nursing information, VTE, and antibiotic prophylaxis. The patient received 900 mg of clindamycin and sequential compression devices placed. Following induction of general/LMA anesthesia, the patient was positioned in modified lithotomy. The perianal area was prepped and draped in usual fashion. Time-out was performed verifying patient, site, procedure, position. By digital exam revealed the anterior external hemorrhoidal complex otherwise normal sized mixed hemorrhoidal complex of the right posterior left lateral position. Anoscopy demonstrated no internal anal abnormalities. At this point, the planned right anterior hemorrhoid was grasped for planned resection margins with hemostats in the lateral anoderm. Small Bella was used to grab the body of the hemorrhoid and a 2nd hemostat placed on the apex. A scalpel was used to cut the anoderm and the hemorrhoidal complex was dissected off the underlying perianal skin. External sphincter was identified and the hemorrhoid complex was dissected off the external sphincter using back of a scalpel. Then, used electrocautery to divide the anoderm up to the apex of the planned resection. The hemorrhoid was amputated and sent for pathology. 2-0 chromic [id number]-ck-zicja sutures placed over the apex with a running locking transition to a simple suture was used to close the mucosal defect. There was good hemostasis at this point. Exparel was injected around the incision and perianally, total of 9 mL. Dibucaine-impregnated Gelfoam was placed in the anal canal. The area was cleaned up. A dressing applied with mesh pants, carla-pad, and held in place with elastic pants. The patient was then taken out of lithotomy, extubated, and brought to recovery room in a stable condition. FINAL DIAGNOSIS A. Hemorrhoids, hemorrhoidectomy: - Skin with dilated/congested blood vessels, hemorrhage and reactive changes. Imaging/Endoscopy Reviewed 02/04/20 Colonoscopy- Dr. Pepe Findings: The perianal and digital rectal examinations were normal. A 6 mm polyp was found in the rectum. The polyp was sessile. The polyp was removed with a cold biopsy forceps. Resection and retrieval were complete. The exam was otherwise without abnormality on direct and retroflexion views. FINAL DIAGNOSIS 5. Rectum, polypectomy (E): Hyperplastic polyp. 02/04/20 EGD- Dr. Pepe Findings: The examined jejunum was normal. The examined duodenum was normal. Localized mild inflammation characterized by erosions and erythema was found in the gastric antrum. Biopsies were taken with a cold forceps for histology. A small hiatal hernia was present. Non-severe esophagitis with no bleeding was found. Multiple sessile polyps with no bleeding and no stigmata of recent bleeding were found in the gastric fundus. Biopsies were taken with a cold forceps for histology. FINAL DIAGNOSIS 1. Mid esophagus, biopsy (A): Squamous mucosa with no significant pathologic abnormality. 2. Gastroesophageal junction, biopsy (B): Squamous mucosa with mild reactive changes. 3. Stomach, biopsy (C): Gastric-type mucosa with intestinal metaplasia; no dysplasia. 4. Stomach, polypectomy (D): Fundic gland polyp. PAST MEDICAL HISTORY Diagnosis Date Abnormal glandular Papanicolaou smear of cervix Abn. Pap smear (cervix) Acute gastritis without mention of hemorrhage Allergic rhinitis, seasonal Anxiety 07/07/2012 Chronic tension-type headache, intractable 03/17/2016 Depression 07/07/2012 Encounter for routine gynecological examination 01/21/[address] 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 Vitamin D deficiency 08/29/2023 Well adult exam 01/21/2020 Last done 10/26/21 PAST SURGICAL HISTORY Procedure Laterality Date ADENOIDECTOMY PRIMARY <AGE 13 Adenoidectomy BREAST REDUCTION 09/2016 BX BREAST W/DEVICE 1ST LESION ULTRASOUND GUID Left 05/03/2015 U/S Needle core upper mid left breast DELIVERY ONLY 11/2007 [facility] COLONOSCOPY FLX DX W/COLLJ SPEC WHEN PFRMD 2003 Colonoscopy COLONOSCOPY FLX DX W/COLLJ SPEC WHEN PFRMD 08/21/2008 Colonoscopy COLONOSCOPY FLX DX W/COLLJ SPEC WHEN PFRMD 01/14/2015 COLONOSCOPY FLX DX W/COLLJ SPEC WHEN PFRMD 02/04/2020 Colonoscopy- repeat 5 year CONIZATION CERVIX W/WO D&C RPR ELTRD EXC 1993 LEEP-Cervix D&C, DIAG AND/OR THERAPEUTIC 12/2021 EGD 1991 REMOVAL OF FOREIGN BODY EGD TRANSORAL BIOPSY SINGLE/MULTIPLE 06/12/2008 ESOPHAGOGASTRODUODENOSCOPY TRANSORAL DIAGNOSTIC 05/16/2017 EGD ESOPHAGOGASTRODUODENOSCOPY TRANSORAL DIAGNOSTIC 02/04/2020 EGD- repeat in 1 year ESOPHAGOSCOPY FLEX BALLOON DILAT <30 MM DIAM 06/12/2008 SEPTOPLASTY 08/29/2017 Dr. Manny Sexton-nasal airway obstruction. deviated septum, inferior turbinate hypertrophy TONSILLECTOMY PRIMARY/SECONDARY <AGE 13 Tonsillectomy Current Outpatient Medications Medication Sig Dispense Refill tirzepatide, weight loss (ZEPBOUND) 10 mg/0.5 mL pen injector Inject 10 mg subcutaneously one time a week. 2 mL 2 metFORMIN ER (GLUCOPHAGE XR) 500 mg 24 hr tablet Take 2 tablets by mouth daily with dinner. (Patient not taking: Reported on 05/11/2024) 180 tablet 1 omeprazole (PRILOSEC) 40 mg capsule Take 1 capsule by mouth once daily. 90 capsule 1 ondansetron (ZOFRAN) 4 mg tablet Take 1 tablet by mouth every 8 hours as needed for nausea/vomiting for up to 30 doses. (Patient not taking: Reported on 05/11/2024) 30 tablet 1 Norethindrone, Contraceptive, 0.35 mg tablet Take 1 tablet by mouth once daily. ADELINA 0.0375 mg/24 hr estradiol (ESTRACE) 0.01 % (0.1 mg/gram) vaginal cream atorvastatin (LIPITOR) 20 mg tablet Take 1 tablet by mouth daily at bedtime. For cholesterol. 90 tablet 1 fluticasone-salmeterol (ADVAIR DISKUS) 250-50 mcg/dose inhaler Inhale 1 Puff as instructed two times a day. Rinse and gargle mouth after use with water. 3 Each 1 albuterol HFA (VENTOLIN HFA) 90 mcg/actuation inhaler Inhale 2 Puffs as instructed every 4 hours as needed. 24 g 1 CHOLECALCIFEROL, VITAMIN D3, ORAL Take by mouth as directed. Combined with omega 3 DUPIXENT SYRINGE 300 mg/2 mL injection Inject 300 mg subcutaneously every 2 weeks. (Patient not taking: Reported on 04/09/2024) No current facility-administered medications for this visit. ALLERGIES No Known Allergies Review of Systems / PACC screen: Do you have difficulty climbing a full flight of stairs without feeling short of breath? no Do you require oxygen for your breathing or have your gone to an emergency department because of breathing problems? no Are you on dialysis or have you been told that your kidneys do not work well as they should? no Do have an implanted cardiac device (pacemaker, defibrillator etc.) that has not been checked in the last 6 months? no Have you had an organ transplant? no Have you been told that you had excessive bleeding during surgical procedures or do you take blood thinning medications other than aspirin? no Have you ever had a heart attack, heart stents/surgery, valve problems, or other heart problems? no Have you had a stroke, seizures, or unexplained loss of consciousness? no Do you have a neurologic condition like Parkinson's disease or multiple sclerosis? no Have you or a blood relative had a life-threatening reaction to anesthesia? no Do you have cirrhosis of the liver or other liver disease? no Have you had a blood clot within the past year? no Do you take insulin or other injections for diabetes? no Do you have sleep apnea or have you been told you may have sleep apnea? Yes Do you have other implanted devices (deep brain stimulator, spinal cord stimulator, etc.)? no Physical Exam: Sensitive Exam: yes, Participation of a fellow, resident, medical student, or advanced practice provider student in performing the sensitive examination was discussed with the patient or authorized contact center representative. The patient or authorized contact center representative has agreed to proceed with the sensitive examination. (Sensitive examination includes inspection and/or palpation of the breasts, pelvis, prostate and anorectal regions) BP 111/68 Pulse 84 Temp 36.2 C (97.2 F) (Temporal) Ht 160 cm (5' 3) Wt 78 kg (172 lb) LMP 04/28/2024 (Exact Date) SpO2 97% BMI 30.47 kg/m General Appearance: Well appearing, alert, in no acute distress, well-hydrated, well nourished. Lungs: Lungs clear to auscultation. No wheezing, rhonchi, rales. Unlabored on room air Heart: Not examined Abdomen: Not reviewed Anorectal: Perianal skin is intact. No erythema, induration or excoriation. No fissure or external hemorrhoids. Hemorrhoidectomy scar visible anteriorly. Small external opening just left of anterior midline. Probe inserted for ~ 1 cm towards anal canal. Appears superficial. Digital Rectal Exam: Anus: closed Resting tone: NORMAL Squeeze tone: NORMAL Financial Systems Analyst present: Yes, Coni Rodriguez Assessment Medical Decision Making: Assessment & Diagnosis: Chika Good is a 53 year old female with hx of symptomatic hemorrhoids that did not response to conservative measures and RBL, s/p EUA and excision of right anterior anal hemorrhoid 02/21/2024 at [facility]. Now with recurrent anal itching and rectal pain with some leakage and apparent sinus vs/ fistula tract adjacent to hemorrhoidectomy scar that appears superficial. Screening colonoscopy due this year, family hx of colon cancer. Data Reviewed: Tests & Documents Reviewed/ordered: Review of prior notes from previous encounters, all available within [facility] Review of prior operative reports Review of Pathology Review of Labs: CBC, BMP, most recent in [facility] Review of Procedures / Tests: [facility], [facility] I have independently interpreted: photos in chart, colonoscopy I have discussed Chika Good's treatment plan and/or results with the patient. Treatment plan: Discussed that her current symptoms are likely related to drainage from fistula tract. Agree with Dr. Newsome and recommend EUA with fistulotomy versus seton placement depending on degree of muscle involvement. It appears superficial and will likely be appropriate for fistulotomy. Can do colonoscopy at same time since she is due this year for increased-risk screening. Discussed risks, benefits, and alternatives of fistulotomy vs seton placement and colonoscopy in detail. Including risks related to anesthesia, bleeding infection, sphincter injury, recurrence. Obtained consent today. - try applying a layer of Calmoseptine regularly, a barrier ointment, to mitigate itching related to moisture - try using Immodium daily to decrease the frequency of BM and to firm stool, while avoiding hard stool. - continue to use bidet for perianal hygiene Risk of morbidity, and/or complications of treatment plan: low By signing my name below, I, Roya Amador, attest that this documentation has been prepared under the direction and in the presence of Dr. Bolaños. Electronically signed, Liv Perea May 21, 2024 9:16 AM Patient was seen and examined and I confirmed and edited as necessary, findings on history, PFSH, examination, and ROS obtained by others as noted above. Hannah Bolaños MD Colorectal Surgery May 21, 2024 documented in this encounter [facility] 05-21-2024 Note Education (MARIAM) ---- BALDEMARCHIKA Montesinos ([id number]) 1970 F Date Time Provider Department 05/21/24 HANNAH BOLAÑOS Reason for Visit: Patient Education [91] During your visit today, we recorded the following information about you: Allergies As of Date: 05/21/2024 (No Known Allergies) Date Reviewed: 05/21/2024 Reviewed by: Coni Rodriguez LPN - Fully Assessed Prescriptions as of 05/21/2024 - tirzepatide, weight loss (ZEPBOUND) 10 mg/0.5 mL pen injector Inject 10 mg subcutaneously one time a week. - metFORMIN ER (GLUCOPHAGE XR) 500 mg 24 hr tablet Take 2 tablets by mouth daily with dinner. - omeprazole (PRILOSEC) 40 mg capsule Take 1 capsule by mouth once daily. - ondansetron (ZOFRAN) 4 mg tablet Take 1 tablet by mouth every 8 hours as needed for nausea/vomiting for up to 30 doses. - Norethindrone, Contraceptive, 0.35 mg tablet Take 1 tablet by mouth once daily. - ADELINA 0.0375 mg/24 hr - estradiol (ESTRACE) 0.01 % (0.1 mg/gram) vaginal cream - atorvastatin (LIPITOR) 20 mg tablet Take 1 tablet by mouth daily at bedtime. For cholesterol. - fluticasone-salmeterol (ADVAIR DISKUS) 250-50 mcg/dose inhaler Inhale 1 Puff as instructed two times a day. Rinse and gargle mouth after use with water. - albuterol HFA (VENTOLIN HFA) 90 mcg/actuation inhaler Inhale 2 Puffs as instructed every 4 hours as needed. - CHOLECALCIFEROL, VITAMIN D3, ORAL Take by mouth as directed. Combined with omega 3 - DUPIXENT SYRINGE 300 mg/2 mL injection Inject 300 mg subcutaneously every 2 weeks. Meds Comments as of 12/01/2007: All medications reviewed today/October 10, 2007 [employer] [facility] All medications reviewed todayDecember 01, 2007 Sharon Poe Rn Encounter Status:Closed by REGIS FONSECA on 05/21/24 [facility] 05-19-2024 Note HNO ID: [id number] Author: REGIS FONSECA RN Service: ? Author Type: Registered Nurse Type: Progress Notes Filed: 05/19/2024 11:40 Note Text: ---- Summary: Abstract ---- Chika Good Age 53 Female [place], [place] Hemorrhoids, second opinion Referral SELF 53 year old female referred by SELF for second opinion of hemorrhoids. Ms. Good is S/p EUA, hemorrhoidectomy on 02/21/24. [facility] Examination under anesthesia and single quadrant Hemorrhoidectomy, 02/21/24- Dr. Pepe FINAL DIAGNOSIS A. Hemorrhoids, hemorrhoidectomy: - Skin with dilated/congested blood vessels, hemorrhage and reactive changes. Imaging/Endoscopy Reviewed 02/04/20 Colonoscopy- Dr. Pepe Findings: The perianal and digital rectal examinations were normal. A 6 mm polyp was found in the rectum. The polyp was sessile. The polyp was removed with a cold biopsy forceps. Resection and retrieval were complete. The exam was otherwise without abnormality on direct and retroflexion views. FINAL DIAGNOSIS 5. Rectum, polypectomy (E): Hyperplastic polyp. 02/04/20 EGD- Dr. Pepe Findings: The examined jejunum was normal. The examined duodenum was normal. Localized mild inflammation characterized by erosions and erythema was found in the gastric antrum. Biopsies were taken with a cold forceps for histology. A small hiatal hernia was present. Non-severe esophagitis with no bleeding was found. Multiple sessile polyps with no bleeding and no stigmata of recent bleeding were found in the gastric fundus. Biopsies were taken with a cold forceps for histology. FINAL DIAGNOSIS 1. Mid esophagus, biopsy (A): Squamous mucosa with no significant pathologic abnormality. 2. Gastroesophageal junction, biopsy (B): Squamous mucosa with mild reactive changes. 3. Stomach, biopsy (C): Gastric-type mucosa with intestinal metaplasia; no dysplasia. 4. Stomach, polypectomy (D): Fundic gland polyp. [facility] 05-19-2024 History of Present illness Narrative Summary: Abstract Chika Good Age 53 Female [place], [place] Hemorrhoids, second opinion Referral SELF 53 year old female referred by SELF for second opinion of hemorrhoids. Ms. Good is S/p EUA, hemorrhoidectomy on 02/21/24. [facility] Examination under anesthesia and single quadrant Hemorrhoidectomy, 02/21/24- Dr. Pepe FINAL DIAGNOSIS A. Hemorrhoids, hemorrhoidectomy: - Skin with dilated/congested blood vessels, hemorrhage and reactive changes. Imaging/Endoscopy Reviewed 02/04/20 Colonoscopy- Dr. Pepe Findings: The perianal and digital rectal examinations were normal. A 6 mm polyp was found in the rectum. The polyp was sessile. The polyp was removed with a cold biopsy forceps. Resection and retrieval were complete. The exam was otherwise without abnormality on direct and retroflexion views. FINAL DIAGNOSIS 5. Rectum, polypectomy (E): Hyperplastic polyp. 02/04/20 EGD- Dr. Pepe Findings: The examined jejunum was normal. The examined duodenum was normal. Localized mild inflammation characterized by erosions and erythema was found in the gastric antrum. Biopsies were taken with a cold forceps for histology. A small hiatal hernia was present. Non-severe esophagitis with no bleeding was found. Multiple sessile polyps with no bleeding and no stigmata of recent bleeding were found in the gastric fundus. Biopsies were taken with a cold forceps for histology. FINAL DIAGNOSIS 1. Mid esophagus, biopsy (A): Squamous mucosa with no significant pathologic abnormality. 2. Gastroesophageal junction, biopsy (B): Squamous mucosa with mild reactive changes. 3. Stomach, biopsy (C): Gastric-type mucosa with intestinal metaplasia; no dysplasia. 4. Stomach, polypectomy (D): Fundic gland polyp. documented in this encounter [facility] 05-11-2024 Note HNO ID: [id number] Author: NAYA PEPE MD Service: ? Author Type: Physician Type: Progress Notes Filed: 05/13/2024 10:05 Note Text: FOLLOW UP VISIT - POST OP NAME: Chika Good [facility] NO.: [id number] DATE OF SERVICE: 05/11/2024 : 1970 REFERRING PHYSICIAN: Clark Javed MD Chika is a patient I am following for a complaint of symptomatic hemorrhoids and now complaint of drainage. The patient initially presented with the complaints on October 20, 2023. At that time I noted: The patient is a 53 year old female with a complaint of symptomatic hemorrhoids. The patient notes issues with itchiness on her external hemorrhoids. She notes a small nodule on the right posterior aspect just inside the anal verge. She has tried suppositories which she felt worked for a little while but not recently. She noted issues with hemorrhoids approximately 10 years ago and now for the past 4 to 6 months has noted issues with itching and some discomfort. Rectal exam findings demonstrated: Rectal exam: Significant hemorrhoid, grade 1 located in the right anterior aspect, otherwise no additional abnormalities or masses. Digital rectal exam -small nodule in the anal canal without significant tenderness consistent with a small thrombosed hemorrhoid. Failure of relaxation of the internal sphincter preventing adequate digital rectal exam. Given that this was a relatively small external complex we attempted to attempts at anoscopy and banding to see if this would at least allow the external complex to shrink up enough that she was no longer symptomatic. She noted no improvement in her symptoms and both digital rectal exam and anoscopy was quite uncomfortable. I performed an examination under anesthesia and excision of her right anterior symptomatic external hemorrhoid on February 21, 2024. This was felt to be a relatively small complex without additional concerning findings. Pathology returned as: FINAL DIAGNOSIS A. Hemorrhoids, hemorrhoidectomy: - Skin with dilated/congested blood vessels, hemorrhage and reactive changes The patient noted significant pain following the procedure. The patient currently notes continued discomfort and occasionally a small drop of pus from an external sinus. She was seen by her primary care provider who took a photograph of her perianal area. VITALS: Blood pressure 126/78, pulse 86, resp. rate 20, last menstrual period 04/28/2024, SpO2 98%. SENSITIVE EXAMINATION CONSENT: The sensitive examination was discussed with the Patient or Patient's Authorized Apparel Patternmaker. As applicable, any other physician, advance practice provider, medical student, or other health professional student that will be observing or involved in the sensitive examination for educational or training purposes was discussed with the Patient or Authorized Apparel Patternmaker. The Patient or Authorized Apparel Patternmaker has agreed to proceed with the sensitive examination. (Sensitive examination includes inspection and/or palpation of the breasts, pelvis, prostate and anorectal regions) On examination, the site of the hemorrhoid excision has a small external sinus with a small drip of pus with no signs of abscess or deeper infection. Consent was obtained and endoscopy was performed. This demonstrated a small dot of granulation tissue at the internal anal excision margin. Patient noted discomfort with both digital exam and anoscope insertion Assessment IMPRESSION: Status post excision of grade 1 external hemorrhoid now superficial fistula/sinus PLAN: I discussed with the patient at this point I would recommend an exam under anesthesia and fistulotomy. I discussed with her this is was a relatively small mostly external hemorrhoidectomy. Given her anal pain and issues with preoperative discomfort on exam and anoscopic and the degree of discomfort she had from a relatively small external hemorrhoid, I discussed with her that I expected while not as severe as a hemorrhoidectomy which she would have discomfort following the procedure. She asked if there were any other options for treatment of this issue I discussed with her I would contact one of my colleagues in colorectal surgery and asked them to evaluate her and see if there were additional or different treatment options they could offer Diagnoses: (K64.1) Grade II hemorrhoids (primary encounter diagnosis) (K64.9) Hemorrhoids, unspecified hemorrhoid type Return to Clinic: The patient is instructed to follow-up with me as needed. Naya Pepe MD UNIVERSAL PROTOCOL / SAFETY CHECKLIST Procedure to be Performed: Anoscopy Sign In: A Moment of CARE was completed. Appropriate PPE (Personal Protective Equipment) worn by all providers involved with the procedure. Special equipment utilized Anoscope. Patient/Surrogate Stated/Verified: Patient name, Date of , Relevant allergies (more content not included)... [facility] 05-11-2024 History of Present illness Narrative FOLLOW UP VISIT - POST OP NAME: Chika Good [facility] NO.: [id number] DATE OF SERVICE: 05/11/2024 : 1970 REFERRING PHYSICIAN: Clark Javed MD Chika is a patient I am following for a complaint of symptomatic hemorrhoids and now complaint of drainage. The patient initially presented with the complaints on October 20, 2023. At that time I noted: The patient is a 53 year old female with a complaint of symptomatic hemorrhoids. The patient notes issues with itchiness on her external hemorrhoids. She notes a small nodule on the right posterior aspect just inside the anal verge. She has tried suppositories which she felt worked for a little while but not recently. She noted issues with hemorrhoids approximately 10 years ago and now for the past 4 to 6 months has noted issues with itching and some discomfort. Rectal exam findings demonstrated: Rectal exam: Significant hemorrhoid, grade 1 located in the right anterior aspect, otherwise no additional abnormalities or masses. Digital rectal exam -small nodule in the anal canal without significant tenderness consistent with a small thrombosed hemorrhoid. Failure of relaxation of the internal sphincter preventing adequate digital rectal exam. Given that this was a relatively small external complex we attempted to attempts at anoscopy and banding to see if this would at least allow the external complex to shrink up enough that she was no longer symptomatic. She noted no improvement in her symptoms and both digital rectal exam and anoscopy was quite uncomfortable. I performed an examination under anesthesia and excision of her right anterior symptomatic external hemorrhoid on February 21, 2024. This was felt to be a relatively small complex without additional concerning findings. Pathology returned as: FINAL DIAGNOSIS A. Hemorrhoids, hemorrhoidectomy: - Skin with dilated/congested blood vessels, hemorrhage and reactive changes The patient noted significant pain following the procedure. The patient currently notes continued discomfort and occasionally a small drop of pus from an external sinus. She was seen by her primary care provider who took a photograph of her perianal area. VITALS: Blood pressure 126/78, pulse 86, resp. rate 20, last menstrual period 04/28/2024, SpO2 98%. SENSITIVE EXAMINATION CONSENT: The sensitive examination was discussed with the Patient or Patient's Authorized Apparel Patternmaker. As applicable, any other physician, advance practice provider, medical student, or other health professional student that will be observing or involved in the sensitive examination for educational or training purposes was discussed with the Patient or Authorized Apparel Patternmaker. The Patient or Authorized Apparel Patternmaker has agreed to proceed with the sensitive examination. (Sensitive examination includes inspection and/or palpation of the breasts, pelvis, prostate and anorectal regions) On examination, the site of the hemorrhoid excision has a small external sinus with a small drip of pus with no signs of abscess or deeper infection. Consent was obtained and endoscopy was performed. This demonstrated a small dot of granulation tissue at the internal anal excision margin. Patient noted discomfort with both digital exam and anoscope insertion Assessment IMPRESSION: Status post excision of grade 1 external hemorrhoid now superficial fistula/sinus PLAN: I discussed with the patient at this point I would recommend an exam under anesthesia and fistulotomy. I discussed with her this is was a relatively small mostly external hemorrhoidectomy. Given her anal pain and issues with preoperative discomfort on exam and anoscopic and the degree of discomfort she had from a relatively small external hemorrhoid, I discussed with her that I expected while not as severe as a hemorrhoidectomy which she would have discomfort following the procedure. She asked if there were any other options for treatment of this issue I discussed with her I would contact one of my colleagues in colorectal surgery and asked them to evaluate her and see if there were additional or different treatment options they could offer Diagnoses: (K64.1) Grade II hemorrhoids (primary encounter diagnosis) (K64.9) Hemorrhoids, unspecified hemorrhoid type Return to Clinic: The patient is instructed to follow-up with me as needed. Naya Pepe MD UNIVERSAL PROTOCOL / SAFETY CHECKLIST Procedure to be Performed: Anoscopy Sign In: A Moment of CARE was completed. Appropriate PPE (Personal Protective Equipment) worn by all providers involved with the procedure. Special equipment utilized Anoscope. Patient/Surrogate Stated/Verified: Patient name, Date of , Relevant allergies, and The intended procedure Time Out: Relevant labs, photos, and/or imaging studies are not applicable. Intended patient and procedure match the source document(s) (e.g. consent, H&P, associated studies [imaging, pathology]) match the intended patient and procedure. Consent obtained and matches the intended procedure. Yes. Correct side/site has been marked and visible. Medications required for this procedure are verified. are not applicable. Fire risk assessed and is not applicable. Implants: are not applicable. Sign Out: Specimens not collected. All instruments, equipment, possible retained foreign bodies are accounted for. Yes. The post-procedure plan of care has been communicated to the patient or surrogate. Erica Larsen LPN documented in this encounter [facility] 05-09-2024 History of Present illness Narrative Chief Complaint Patient presents with: Follow Up HPI Chika Good is a 53 year old female who presents here today for rectal itching Patient was dx with grade [address] Pepe for excision anal hemorrhoid 02/2024 it was banded twice before this and failed. Patient followed up Dr. Pepe's recommendations with dibucaine and sitz baths. Patient is still having intense itching. Itching is always after a BM. Sometimes randomly and on occasion at night. She did go see a humanities instructor and eval was unremarkable. Past medical history, appointments, medications, allergies reviewed. Previous Medical History PAST MEDICAL HISTORY Diagnosis Date Abnormal glandular Papanicolaou smear of cervix Abn. Pap smear (cervix) Acute gastritis without mention of hemorrhage Allergic rhinitis, seasonal Anxiety 07/07/2012 Chronic tension-type headache, intractable 03/17/2016 Depression 07/07/2012 Encounter for routine gynecological examination 01/21/[address] 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 Vitamin D deficiency 08/29/2023 Well adult exam 01/21/2020 Last done 10/26/21 Previous Surgical History PAST SURGICAL HISTORY Procedure Laterality Date ADENOIDECTOMY PRIMARY <AGE 13 Adenoidectomy BREAST REDUCTION 09/2016 BX BREAST W/DEVICE 1ST LESION ULTRASOUND GUID Left 05/03/2015 U/S Needle core upper mid left breast DELIVERY ONLY 11/2007 [facility] COLONOSCOPY FLX DX W/COLLJ SPEC WHEN PFRMD 2003 Colonoscopy COLONOSCOPY FLX DX W/COLLJ SPEC WHEN PFRMD 08/21/2008 Colonoscopy COLONOSCOPY FLX DX W/COLLJ SPEC WHEN PFRMD 01/14/2015 COLONOSCOPY FLX DX W/COLLJ SPEC WHEN PFRMD 02/04/2020 Colonoscopy- repeat 5 year CONIZATION CERVIX W/WO D&C RPR ELTRD EXC 1993 LEEP-Cervix D&C, DIAG AND/OR THERAPEUTIC 12/2021 EGD 1992 REMOVAL OF FOREIGN BODY EGD TRANSORAL BIOPSY SINGLE/MULTIPLE 06/12/2008 ESOPHAGOGASTRODUODENOSCOPY TRANSORAL DIAGNOSTIC 05/16/2017 EGD ESOPHAGOGASTRODUODENOSCOPY TRANSORAL DIAGNOSTIC 02/04/2020 EGD- repeat in 1 year ESOPHAGOSCOPY FLEX BALLOON DILAT <30 MM DIAM 06/12/2008 SEPTOPLASTY 08/29/2017 Dr. Manny Sexton-nasal airway obstruction. deviated septum, inferior turbinate hypertrophy TONSILLECTOMY PRIMARY/SECONDARY <AGE 12 Tonsillectomy Family History FAMILY HISTORY Problem Relation Age of Onset Asthma Mother Hypertension Father Colon Cancer Father Colon polyps Colon Cancer Maternal Grandfather Colon Cancer Paternal Grandfather Patient Allergies ALLERGIES No Known Allergies Current Medications Current Outpatient Medications on File Prior to Visit Medication Sig tirzepatide, weight loss (ZEPBOUND) 10 mg/0.5 mL pen injector Inject 10 mg subcutaneously one time a week. metFORMIN ER (GLUCOPHAGE XR) 500 mg 24 hr tablet Take 2 tablets by mouth daily with dinner. omeprazole (PRILOSEC) 40 mg capsule Take 1 capsule by mouth once daily. ondansetron (ZOFRAN) 4 mg tablet Take 1 tablet by mouth every 8 hours as needed for nausea/vomiting for up to 30 doses. Norethindrone, Contraceptive, 0.35 mg tablet Take 1 tablet by mouth once daily. ADELINA 0.0375 mg/24 hr estradiol (ESTRACE) 0.01 % (0.1 mg/gram) vaginal cream atorvastatin (LIPITOR) 20 mg tablet Take 1 tablet by mouth daily at bedtime. For cholesterol. fluticasone-salmeterol (ADVAIR DISKUS) 250-50 mcg/dose inhaler Inhale 1 Puff as instructed two times a day. Rinse and gargle mouth after use with water. albuterol HFA (VENTOLIN HFA) 90 mcg/actuation inhaler Inhale 2 Puffs as instructed every 4 hours as needed. CHOLECALCIFEROL, VITAMIN D3, ORAL Take by mouth as directed. Combined with omega 3 DUPIXENT SYRINGE 300 mg/2 mL injection Inject 300 mg subcutaneously every 2 weeks. (Patient not taking: Reported on 04/09/2024) No current facility-administered medications on file prior to visit. Social History Social History Tobacco Use Smoking status: Former Current packs/day: 0.00 Types: Cigarettes Start date: 07/13/1991 Quit date: 07/12/2006 Years since quittin.8 Smokeless tobacco: Never Tobacco comments: SOCIAL SMOKER IN PAST Vaping Use Vaping status: Never Used Substance Use Topics Alcohol use: Yes Comment: rare,NOT WHILE Drug use: No Review of Symptoms REVIEW OF SYSTEMS See HPI EXAM: BP 98/60 Pulse 86 Resp 18 LMP 03/25/2024 (Exact Date) General Appearance: Well appearing, alert, in no acute distress, well-hydrated, well nourished.. Rectal: on exam there is a small papule just at the OS just left of the 6 o'clock position. On applying some pressure during the exam fecal material came from this area and with further manipulation was able to see an opening where the material was coming from. (Pic of perianal area taken and in Get images) Health Maintenance List Shingrix Vaccine(1 of 2) Never done Covid-19 Vaccine() due on 11/13/2023 Annual PCP Team Chronic Disease Visit due on 01/02/2025 Mammogram Screening due on 01/15/2025 Colorectal Cancer Screening due on 02/03/2025 Diabetes Screening due on 01/31/2027 Cervical Cancer Screening due on 05/10/2027 Lipid Screening due on 01/31/2029 DTaP,Tdap,Td Vaccine(3 - Td or Tdap) due on 11/01/2032 Influenza Vaccine Completed Hepatitis C Screening Completed Pneumococcal Vaccine: 50+ Completed Hepatitis B Vaccine Discontinued Spirometry Discontinued HIV Screening Discontinued Data reviewed A/P ASSESSMENT/PLAN: 1. Rectal itching - ICD9: 698.0, ICD10: L29.0 (primary diagnosis) - suspect this is due to the fecal material coming out onto the skin from problem #2 2. 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 Clark Javed MD Participation of a fellow, resident, medical student, or advanced practice provider student in performing the sensitive examination was discussed with the patient or authorized contact center representative. The patient or authorized contact center representative has agreed to proceed with the sensitive examination. (Sensitive examination includes inspection and/or palpation of the breasts, pelvis, prostate and anorectal regions) MA was in the room during the examination. documented in this encounter [facility] 05-09-2024 Note HNO ID: [id number] Author: CLARK JAVED MD Service: ? Author Type: Physician Type: Progress Notes Filed: 05/09/2024 16:54 Note Text: Chief Complaint Patient presents with: Follow Up HPI Chika Good is a 53 year old female who presents here today for rectal itching Patient was dx with grade [address] Pepe for excision anal hemorrhoid 02/2024 it was banded twice before this and failed. Patient followed up Dr. Pepe's recommendations with dibucaine and sitz baths. Patient is still having intense itching. Itching is always after a BM. Sometimes randomly and on occasion at night. She did go see a humanities instructor and eval was unremarkable. Past medical history, appointments, medications, allergies reviewed. Previous Medical History PAST MEDICAL HISTORY Diagnosis Date Abnormal glandular Papanicolaou smear of cervix Abn. Pap smear (cervix) Acute gastritis without mention of hemorrhage Allergic rhinitis, seasonal Anxiety 07/07/2012 Chronic tension-type headache, intractable 03/17/2016 Depression 07/07/2012 Encounter for routine gynecological examination 01/21/[address] 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 Vitamin D deficiency 08/29/2023 Well adult exam 01/21/2020 Last done 10/26/21 Previous Surgical History PAST SURGICAL HISTORY Procedure Laterality Date ADENOIDECTOMY PRIMARY Adenoidectomy BREAST REDUCTION 09/2016 BX BREAST W/DEVICE 1ST LESION ULTRASOUND GUID Left 05/03/2015 U/S Needle core upper mid left breast DELIVERY ONLY 11/2007 [facility] COLONOSCOPY FLX DX W/COLLJ SPEC WHEN PFRMD 2003 Colonoscopy COLONOSCOPY FLX DX W/COLLJ SPEC WHEN PFRMD 08/21/2008 Colonoscopy COLONOSCOPY FLX DX W/COLLJ SPEC WHEN PFRMD 01/14/2015 COLONOSCOPY FLX DX W/COLLJ SPEC WHEN PFRMD 02/04/2020 Colonoscopy- repeat 5 year CONIZATION CERVIX W/WO DANDC RPR ELTRD EXC 1994 LEEP-Cervix DANDC, DIAG AND/OR THERAPEUTIC 12/2021 EGD 1992 REMOVAL OF FOREIGN BODY EGD TRANSORAL BIOPSY SINGLE/MULTIPLE 06/12/2008 ESOPHAGOGASTRODUODENOSCOPY TRANSORAL DIAGNOSTIC 05/16/2017 EGD ESOPHAGOGASTRODUODENOSCOPY TRANSORAL DIAGNOSTIC 02/04/2020 EGD- repeat in 1 year ESOPHAGOSCOPY FLEX BALLOON DILAT <30 MM DIAM 06/12/2008 SEPTOPLASTY 08/29/2017 Dr. Manny Sexton-nasal airway obstruction. deviated septum, inferior turbinate hypertrophy TONSILLECTOMY PRIMARY/SECONDARY Tonsillectomy Family History FAMILY HISTORY Problem Relation Age of Onset Asthma Mother Hypertension Father Colon Cancer Father Colon polyps Colon Cancer Maternal Grandfather Colon Cancer Paternal Grandfather Patient Allergies ALLERGIES No Known Allergies Current Medications Current Outpatient Medications on File Prior to Visit Medication Sig tirzepatide, weight loss (ZEPBOUND) 10 mg/0.5 mL pen injector Inject 10 mg subcutaneously one time a week. metFORMIN ER (GLUCOPHAGE XR) 500 mg 24 hr tablet Take 2 tablets by mouth daily with dinner. omeprazole (PRILOSEC) 40 mg capsule Take 1 capsule by mouth once daily. ondansetron (ZOFRAN) 4 mg tablet Take 1 tablet by mouth every 8 hours as needed for nausea/vomiting for up to 30 doses. Norethindrone, Contraceptive, 0.35 mg tablet Take 1 tablet by mouth once daily. ADELINA 0.0375 mg/24 hr estradiol (ESTRACE) 0.01 % (0.1 mg/gram) vaginal cream atorvastatin (LIPITOR) 20 mg tablet Take 1 tablet by mouth daily at bedtime. For cholesterol. fluticasone-salmeterol (ADVAIR DISKUS) 250-50 mcg/dose inhaler Inhale 1 Puff as instructed two times a day. Rinse and gargle mouth after use with water. albuterol HFA (VENTOLIN HFA) 90 mcg/actuation inhaler Inhale 2 Puffs as instructed every 4 hours as needed. CHOLECALCIFEROL, VITAMIN D3, ORAL Take by mouth as directed. Combined with omega 3 DUPIXENT SYRINGE 300 mg/2 mL injection Inject 300 mg subcutaneously every 2 weeks. (Patient not taking: Reported on 04/09/2024) No current facility-administered medications on file prior to visit. Social History Social History Tobacco Use Smoking status: Former Current packs/day: 0.00 Types: Cigarettes Start date: 07/13/1991 Quit date: 07/12/2006 Years since quittin.8 Smokeless tobacco: Never Tobacco comments: SOCIAL SMOKER IN PAST Vaping Use Vaping status: Never Used Substance Use Topics Alcohol use: Yes Comment: rare,NOT WHILE Drug use: No Review of Symptoms REVIEW OF SYSTEMS See HPI EXAM: BP 98/60 Pulse 86 Resp 18 LMP 03/25/2024 (Exact Date) General Appearance: Well appearing, alert, in no acute distress, well-hydrated, well nourished.. Rectal: on exam there is a small papule jus (more content not included)... [facility] 04-09-2024 Instructions Kailyn Gill MD - 04/09/2024 12:23 PM EST Educational Podcasts: The Dr. Ozuna Show- Real Conversations about Health and Weight *October 24, 2023, how to determine your weight Gain Pattern to pick a weight loss medication or lifestyle plan *September 05, 2023, NEAT, Non- exercise activity thermogenesis - yes taking the stairs is good for you! *August 22, 2023, What to do when your weight loss plateaus * November 29, 2022 what you need to know about Carbohydrates and Weight *November 08, 2022 Protein why we need it and how to eat more Protein *October 18, 2022 Menopause and Weight Gain- All the Details with Dr. Tracey Lauren *September 27, 2022 The Science Behind Ultra Processed Food and Weight Gain *July 12, 2022 Effects of sleep and Stress of Weight and Health with Dr. Yahaira Nair-Withers, DO * July 05, 2022 Recognizing and Resolving Emotional Eating with Dr. Andrews Obesity: A Disease *July 05, 2022 Episode 80 Clinical conversations: The Role of Physical Activity in Weight Management * October 15, 2022 Episode 84 Clinical Conversations: NAFLD, The [place] Disease of Metabolic Syndrome *October 142019 Episode 20 Article Reviews: The Role Ultra Processed Diets Play in Weight Gain *September 26, 2019 Episode 21 Clinical Conversations: Breaking Weight Plateaus The Obesity Guide Podcast with Harman Andrews MD The Drive, Abdifatah Cartwright MD Conquer Your Weight, So Rivera MD Docs who lift podcast, Azalia Hurst and Solis Escobedo Nutrition Reminders: NO NAKED CARBS!! Protein >= Carbs for each meal (if you are going to eat 50g carbs for lunch you should eat 50g protein or more). If you do not eat your carbs for lunch you do not get to save them for dinner- you use them or lose them. Balance your Protein between meals. Unless told otherwise your Minimum protein each day is 30grams per meal but don t be afraid to eat more. Focus on WHOLE FOODS if you can as your Gut Microbiome will benefit and you will feel more satisfied - the only caviot to this is protein shakes if needed. Water intake should be a minimum of 64oz per day- but more is better (to an extent) unless you have a medical condition that requires you to keep it to a minimum. Nothing is off limits- this is not about restricting yourself- this about learning what your body can have and still respond well to and learning how to balance food and still feel good. Track your food, weigh your food, measure your portion sizes as most people underestimate their food by approximately 40%. You should be tracking your Carbohydrates and Protein daily. It s ok if you had a bad day- write it down and move on! Weigh yourself daily or at least 5 times per week, it will help to keep you accountable. If you are hungry- think about your stress level, your sleep (did you get 7.5-9hrs?) and your protein consumption- if you did not meet your goals then those could be contributing to your hunger. During weight loss phase it is ok to use two protein shakes per day and eating one meal along with it - studies have shown you will lose more weight and keep it off. Take a multivitamin daily Sit less Move more- Exercise including resistance training is very important for your health and if you are not getting routine exercise right now there will come a point when it will become an important piece of this process. documented in this encounter [facility] 04-09-2024 History of Present illness Narrative Some documentation from previous visit of 01/03/24 was copied and pasted, documentation has been reviewed and edited as necessary for today's visit. Patient Summary: Chika is a 53 year old Female who presents for follow-up evaluation of obesity/weight management to treat and prevent related co-morbidities. In our previous visits we have discussed lifestyle intervention including a nutrition recommendations and physical activity optimization. Her last office visit was 3 months ago. Assessment/plan from last visit: - discussed doing two protein shakes and adding more whole foods with lunch and then regular dinner to add more protein to day - reviewed MINIMUM protein 90g/day - continue vit D supplement - continue with Whole foods, Low carb, High protein -Continue prilosec for GERD -Continue Lipitor for Hypercholesteremia - Reviewed previous labs- CMP, LIPIDS and INSULIN ordered. - Continue METFORMIN and ZEPBOUND- pt reports insurance will no longer cover in March. Reviewed options- maria guadalupe direct vs changing to oral medications. Checking into savings card. -has follow up with PCP for routine care - discussed Journaling how she is feeling so she remembers and helps continue healthy habits. Interval History PT specifies the following items as new or significant updates since the last appointment: - having complete aversion to food with last injection has not been this bad before. No vomiting. Not able to tolerate much but water. - no constipation or diarrhea - exercising every day - feels great, not winded going up steps. Going to [place] this summer and wants to be in shape for steps at [facility]. - not snoring as much per Weight loss since last vist: 17 lb Total weight lost: 59 lb - Last Wt 04/05/24 175 lb 01/03/24 192 lb 10/20/23 198 lb 08/30/23 215 lb 07/12/23 224 lb STARTING WEIGHT 05/30/23 234 lb (106.1 kg) 5% weight loss = 218 lbs, 10% weight loss = 206 lbs Anti-obesity medications: Tirzepatide (Zepbound). Benefit:decreased food noise , decreased appetite, Adverse effects: none Anti-obesity medications: Metformin. Benefit:elevated insulin (86) Adverse effects: none Weight promoting medications: Inhaled corticosteroid Previous Diet (initial appointment): Wakes up: 5:30am- black coffee - drinks until lunch time Breakfast- 9am- Della cottage cheese pineapple and ahrley seeds, pea protein powder Lunch- seed 70cal nhi killer- Rotisserie chicken, garlic coffee Edamame, grapes (10) Dinner- Bonza chickpea pasta, chicken pasta, pepper, with veggies or schezwan chicken with white rice. Red cabbage with rice vinegar Snacks- sometimes chips, beef stick, cheese, Diet/Nutrition overview: Fluids: water (80-120oz) , black coffee 6cups Quality of diet: 24hr recall suggests in between diet. Characterization of diet:Structured. Sleeve Setter Safety Stitch of impaired eating habits:excessive hunger, emotion, and stress Eating Disorder no Preferred foods: Cravings: salty Nutrition Now: same B- Oikos triple zero - sometimes eggs with cottage cheese or protein shake L- cheese, or beef stick. salad, rotissere chicken, primal kitchen avocado dressing or protein Shake ( owyn 32g) , nuts D- meat and vegetable (broccoli), Dietary changes: Eating 3 meals a day, including breakfast Increasing water intake Controlling portions Identify hunger and satiety cues Increasing protein Reducing carbohydrates Current Barriers: inadequate sleep duration/QUALITY Exercise: 6-7 days week- walking and steps, weight training. , feeling stronger. Stress: stable Sleep: stable but up multiple times 8 hours. LITO YES ; CPAP yes - NOT USING (01/02) Estimated Creatinine Clearance: 98.9 mL/min (based on SCr of 0.69 mg/dL). PAST MEDICAL HISTORY Diagnosis Date Abnormal glandular Papanicolaou smear of cervix Abn. Pap smear (cervix) Acute gastritis without mention of hemorrhage Allergic rhinitis, seasonal Anxiety 07/07/2012 Chronic tension-type headache, intractable 03/17/2016 Depression 07/07/2012 Encounter for routine gynecological examination 01/21/[address] 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 6 mL 1 metFORMIN ER (GLUCOPHAGE XR) 500 mg 24 hr tablet Take 2 tablets by mouth daily with dinner. 180 tablet 1 omeprazole (PRILOSEC) 40 mg capsule Take 1 capsule by mouth once daily. 90 capsule 1 ondansetron (ZOFRAN) 4 mg tablet Take 1 tablet by mouth every 8 hours as needed for nausea/vomiting for up to 30 doses. 30 tablet 1 Norethindrone, Contraceptive, 0.35 mg tablet Take 1 tablet by mouth once daily. ADELINA 0.0375 mg/24 hr estradiol (ESTRACE) 0.01 % (0.1 mg/gram) vaginal cream atorvastatin (LIPITOR) 20 mg tablet Take 1 tablet by mouth daily at bedtime. For cholesterol. 90 tablet 1 fluticasone-salmeterol (ADVAIR DISKUS) 250-50 mcg/dose inhaler Inhale 1 Puff as instructed two times a day. Rinse and gargle mouth after use with water. 3 Each 1 albuterol HFA (VENTOLIN HFA) 90 mcg/actuation inhaler Inhale 2 Puffs as instructed every 4 hours as needed. 24 g 1 CHOLECALCIFEROL, VITAMIN D3, ORAL Take by mouth as directed. Combined with omega 3 DUPIXENT SYRINGE 300 mg/2 mL injection Inject 300 mg subcutaneously every 2 weeks. No current facility-administered medications for this visit. 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 Latest Ref Rng & Units 02/01/2024 CMP Sodium 136 - 144 mmol/L 139 Potassium 3.7 - 5.1 mmol/L 4.4 Chloride 98 - 107 mmol/L 103 CO2 22 - 30 mmol/L 24 Glucose 74 - 99 mg/dL 84 BUN 7 - 21 mg/dL 13 Creatinine 0.58 - 0.96 mg/dL 0.69 EGFR >=60 mL/min/1.73m 105 Protein, Total 6.3 - 8.0 g/dL 6.9 Albumin 3.9 - 4.9 g/dL 4.3 Calcium 8.5 - 10.2 mg/dL 9.2 Bilirubin, Total 0.2 - 1.3 mg/dL 0.4 AST 13 - 35 U/L 15 ALT 7 - 38 U/L 19 Alkaline Phosphatase 34 - 123 U/L 78 Cholesterol, Total (mg/dL) Date Value 02/01/2024 162 07/31/2018 177 Total Cholesterol, Nonfasting (mg/dL) Date Value 03/03/2021 195 HDL Cholesterol (mg/dL) Date Value 02/01/2024 42 07/31/2018 43 HDL Cholesterol, Nonfasting (mg/dL) Date Value 03/03/2021 40 LDL Cholesterol (mg/dL) Date Value 02/01/2024 104 07/31/2018 110 LDL Cholesterol, Nonfasting (mg/dL) Date Value 11/01/2022 115 03/03/2021 130 Triglyceride (mg/dL) Date Value 02/01/2024 80 07/31/2018 122 Triglycerides, Nonfasting (mg/dL) Date Value 03/03/2021 125 Latest Ref Rng & Units 06/14/2023 CBC WBC 3.70 - 11.00 k/uL 10.86 RBC 3.90 - 5.20 m/uL 4.46 Hemoglobin 11.5 - 15.5 g/dL 13.1 Hematocrit 36.0 - 46.0 % 40.5 MCV 80.0 - 100.0 fL 90.8 MCH 26.0 - 34.0 pg 29.4 MCHC 30.5 - 36.0 g/dL 32.3 RDW-CV 11.5 - 15.0 % 13.5 Platelet Count 150 - 400 k/uL 324 MPV 9.0 - 12.7 fL 10.6 Baso% % 0.7 Abs Neut (ANC) 1.45 - 7.50 k/uL 6.92 Abs Lymph 1.00 - 4.00 k/uL 2.89 Abs Meigs <0.87 k/uL 0.63 Abs Eosin <0.46 k/uL 0.31 Abs Baso <0.11 k/uL 0.08 NRBC /100 WBC 0.0 Vitamin D 25 Hydroxy Date Value Ref Range Status 04/18/2023 34.2 31.0 - 80.0 ng/mL Final Comment: Classification of 25 OH Vitamin D status: Deficiency/Insufficiency: < or = 30 ng/ml. Sufficiency/Optimal Levels: 31-80 ng/mL Toxicity: > 100 ng/mL. Test performed by chemiluminescent immunoassay. 01/21/2020 24.8 (L) 31.0 - 80.0 ng/mL Final Comment: Classification of 25 OH Vitamin D status: Insufficiency/Moderate Deficiency: < or = 30 ng/mL Sufficiency/Optimal Levels: 31 to 80 ng/mL Toxicity: > 100 ng/mL Test performed by chemiluminescent immunoassay. TSH Date Value 04/18/2023 1.460 mIU/L 05/03/2022 2.040 mIU/L 06/12/2020 2.680 uU/mL 04/14/2020 2.130 uU/mL ) Hemoglobin A1C (%) Date Value 02/01/2024 4.8 04/18/2023 5.4 11/01/2022 5.2 03/03/2021 5.1 01/21/2020 5.2 03/15/2018 4.8 Insulin Date Value Ref Range Status 02/01/2024 8.0 3.0 - 25.0 mU/L Final Assessment/Plan: Chika Good is a 52 year old yo with Class II obesity who presented today for follow up for supervised weight loss to treat and prevent related co-morbidities. (G47.33) LITO (obstructive sleep apnea) (primary encounter diagnosis) (E16.1) Hyperinsulinemia (E88.819) Insulin resistance (E55.9) Vitamin D deficiency (K21.9) Gastroesophageal reflux disease without esophagitis (E78.00) Hypercholesteremia (E66.812, E66.01, Z68.35) Class 2 severe obesity with serious comorbidity and body mass index (BMI) of 35.0 to 35.9 in adult, unspecified obesity type (HCC) -Change zepbound to 10mg dosing due to severe food aversion - ZEPBOUND and LITO indication reviewed - stop metformin- last insulin level was 8 - Labs reviewed with patient - continue vit D supplement - continue with Whole foods, Low carb, High protein -Continue prilosec for GERD -Continue Lipitor for Hypercholesteremia - Reviewed previous labs- CMP, LIPIDS and INSULIN ordered. -has follow up with PCP for routine care - discussed Journaling how she is feeling so she remembers and helps continue healthy habits. -Continue with routine exercise - An overall goal of 150-200 minutes per week of exercise has been effective in weight loss and maintenance. Prescription instructions reviewed with patient as applicable. Potential red flag symptoms discussed with the patient. Reviewed appropriate action plan to take if red flag symptoms occur. Patient agreeable to treatment plan. Follow up in 12 weeks I spent a total of 32 minutes on the date of the service which included preparing to see the patient, [id number] patient care, completing clinical documentation, obtaining and/or reviewing separately obtained history, performing a medically appropriate examination, counseling and educating the patient/family/caregiver, and ordering medications, tests, or procedures. Kailyn Puckett MD, FACOG, DABOM documented in this encounter [facility] 04-09-2024 Note HNO ID: [id number] Author: KAILYN GILL MD Service: ? Author Type: Physician Type: Progress Notes Filed: 04/09/2024 12:23 Note Text: Some documentation from previous visit of 01/03/24 was copied and pasted, documentation has been reviewed and edited as necessary for today's visit. Patient Summary: Chika is a 53 year old Female who presents for follow-up evaluation of obesity/weight management to treat and prevent related co-morbidities. In our previous visits we have discussed lifestyle intervention including a nutrition recommendations and physical activity optimization. Her last office visit was 3 months ago. Assessment/plan from last visit: - discussed doing two protein shakes and adding more whole foods with lunch and then regular dinner to add more protein to day - reviewed MINIMUM protein 90g/day - continue vit D supplement - continue with Whole foods, Low carb, High protein -Continue prilosec for GERD -Continue Lipitor for Hypercholesteremia - Reviewed previous labs- CMP, LIPIDS and INSULIN ordered. - Continue METFORMIN and ZEPBOUND- pt reports insurance will no longer cover in March. Reviewed options- maria guadalupe direct vs changing to oral medications. Checking into savings card. -has follow up with PCP for routine care - discussed Journaling how she is feeling so she remembers and helps continue healthy habits. Interval History PT specifies the following items as new or significant updates since the last appointment: - having complete aversion to food with last injection has not been this bad before. No vomiting. Not able to tolerate much but water. - no constipation or diarrhea - exercising every day - feels great, not winded going up steps. Going to [place] this summer and wants to be in shape for steps at [facility]. - not snoring as much per Weight loss since last vist: 17 lb Total weight lost: 59 lb - Last Wt 04/05/24 175 lb 01/03/24 192 lb 10/20/23 198 lb 08/30/23 215 lb 07/12/23 224 lb STARTING WEIGHT 05/30/23 234 lb (106.1 kg) 5% weight loss = 218 lbs, 10% weight loss = 206 lbs Anti-obesity medications: Tirzepatide (Zepbound). Benefit:decreased food noise , decreased appetite, Adverse effects: none Anti-obesity medications: Metformin. Benefit:elevated insulin (86) Adverse effects: none Weight promoting medications: Inhaled corticosteroid Previous Diet (initial appointment): Wakes up: 5:30am- black coffee - drinks until lunch time Breakfast- 9am- Della cottage cheese pineapple and harley seeds, pea protein powder Lunch- seed 70cal nhi killer- Rotisserie chicken, garlic coffee Edamame, grapes (10) Dinner- Bonza chickpea pasta, chicken pasta, pepper, with veggies or schezwan chicken with white rice. Red cabbage with rice vinegar Snacks- sometimes chips, beef stick, cheese, Diet/Nutrition overview: Fluids: water (80-120oz) , black coffee 6cups Quality of diet: 24hr recall suggests in between diet. Characterization of diet:Structured. Sleeve Setter Safety Stitch of impaired eating habits:excessive hunger, emotion, and stress Eating Disorder no Preferred foods: Cravings: salty Nutrition Now: same B- Oikos triple zero - sometimes eggs with cottage cheese or protein shake L- cheese, or beef stick. salad, rotissere chicken, primal kitchen avocado dressing or protein Shake ( owyn 32g) , nuts D- meat and vegetable (broccoli), Dietary changes: Eating 3 meals a day, including breakfast Increasing water intake Controlling portions Identify hunger and satiety cues Increasing protein Reducing carbohydrates Current Barriers: inadequate sleep duration/QUALITY Exercise: 6-7 days week- walking and steps, weight training. , feeling stronger. Stress: stable Sleep: stable but up multiple times 8 hours. LITO YES ; CPAP yes - NOT USING (01/02) Estimated Creatinine Clearance: 98.9 mL/min (based on SCr of 0.69 mg/dL). PAST MEDICAL HISTORY Diagnosis Date Abnormal glandular Papanicolaou smear of cervix Abn. Pap smear (cervix) Acute gastritis without mention of hemorrhage Allergic rhinitis, seasonal Anxiety 07/07/2012 Chronic tension-type headache, intractable 03/17/2016 Depression 07/07/2012 Encounter for routine gynecological examination 01/21/[address] 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 6 mL 1 metFORMIN ER (GLUCOPHAGE XR) 500 mg 24 hr (more content not included)... [facility] 03-23-2024 Telephone encounter Note Great, thank you [facility] 03-23-2024 Miscellaneous Notes Great, thank you I added LITO as a secondary diagnosis. I just received a notification from [employer] that it was approved. Raphael Vital MA Raphael, let's also add her LITO to diagnosis for Zepbound. Please add her sleep study results if needed. In procedure notes form 2018- medication orders placed. Received PA request for patients Zepbound. Submitted and will await response from patients plan. Raphael Vital MA documented in this encounter [facility] [facility] 03-23-2024 Telephone encounter Note I added LITO as a secondary diagnosis. I just received a notification from [employer] that it was approved. Raphael Vital MA [facility] 03-23-2024 Telephone encounter Note Raphael, let's also add her LITO to diagnosis for Zepbound. Please add her sleep study results if needed. In procedure notes form 2018- medication orders placed. [facility] 03-23-2024 Telephone encounter Note Received PA request for patients Zepbound. Submitted and will await response from patients plan. Raphael Vital MA [facility] 03-22-2024 Telephone encounter Note Pt called to see if Dr. Pepe could review. The itching is quite significant and she is just not sure what to use. She states she will try sitz bath tonight to see if that will help. Is Hydrocortisone suppository an option? Or is this just normal healing post surgery. Please review and advise. Mercedes Dutton MA [facility] 03-22-2024 Miscellaneous Notes Pt called to see if Dr. Pepe could review. The itching is quite significant and she is just not sure what to use. She states she will try sitz bath tonight to see if that will help. Is Hydrocortisone suppository an option? Or is this just normal healing post surgery. Please review and advise. Mercedes Dutton MA documented in this encounter [facility] 02-24-2024 Telephone encounter Note Refill request received via [employer]. Patients next weight management appointment is on 04/09/24. Lucero Bryan RN [facility] 02-24-2024 Miscellaneous Notes Refill request received via [employer]. Patients next weight management appointment is on 04/09/24. Lucreo Bryan RN documented in this encounter [facility] 02-21-2024 Note HNO ID: [id number] Author: ELEN DUQUE APRN.FOOD SERVICE UTILITY WORKER Service: ? Author Type: Nurse Telegraph Plant Maintainer Type: Anesthesia Procedure Notes Filed: 02/21/2024 13:54 Note Text: ANESTHESIOLOGY PROCEDURE NOTE Airway General Information Procedure Start Time/Medication Administration: 02/21/2024 1:47 PM Procedure End Time: 02/21/2024 1:48 PM Patient location during procedure: OR Timeout Performed Pre-procedure: timeout performed Consent Obtained: Yes Patient identity confirmed: arm band, care service team leader and patient Staffing Performed by: FOOD SERVICE UTILITY WORKER Indications and Patient Condition Indications for airway management: anesthesia Preoxygenated: yes anesthesia circuit Patient position: sniffing Method: asleep Cricoid Pressure: No Manual In-Line Stabilization: No Difficult Mask: No Final Airway Details Final airway type: supraglottic airway Number of attempts at approach: 1 Ventilation between attempts: none Final Supraglottic Airway: i-gel Size 4 Seal Adequate: yes Failed airway: no Unrecognized esophageal intubation: no Airway not difficult SIGNATURE: Elen Duque APRN.FOOD SERVICE UTILITY WORKER PATIENT NAME: Chika Good DATE: February 21, 2024 TIME: 1:54 PM CSN: [id number] [facility] 02-21-2024 Note HNO ID: [id number] Author: SHIRA GOLDSMITH RN Service: Nursing Author Type: Registered Nurse Type: Nursing Progress Note Filed: 02/21/2024 13:00 Note Text: Other: pt ready for OR, call light in reach, Hannah called to bedside. [facility] 02-02-2024 Telephone encounter Note Closing encounter. See Mychart messages from 01/28. New dose approved. Raphael Vital MA [facility] 02-02-2024 Miscellaneous Notes Closing encounter. See Mychart messages from 01/28. New dose approved. Raphael Vital MA noted Received PA request for patients increased dose of Zepbound. Submitted and will wait for further response from insurance. Raphael Vital MA documented in this encounter [facility] 02-02-2024 Telephone encounter Note Pt called and is notified of providers results and instructions. Pt voices understanding. Luma Lim RN [facility] 02-02-2024 Miscellaneous Notes Pt called and is notified of providers results and instructions. Pt voices understanding. Luma Lim RN Let patient know her A1c screen for diabetes was good. I looked at her lipid panel that was done by OB and the Trigs and LDL were good. Her good Chol (HDL) was low and this can be increased through exercise. documented in this encounter [facility] 02-02-2024 Telephone encounter Note Let patient know her A1c screen for diabetes was good. I looked at her lipid panel that was done by OB and the [facility]igs and LDL were good. Her good Chol (HDL) was low and this can be increased through exercise. [facility] 01-27-2024 Telephone encounter Note noted [facility] 01-27-2024 Telephone encounter Note Received PA request for patients increased dose of Zepbound. Submitted and will wait for further response from insurance. Raphael Vital MA [facility] 01-27-2024 Telephone encounter Note Called and spoke to patient regarding her Zepbound. Patient was already instructed to stop the medication 7 days prior to surgery. She is going to get the lab work done prior to surgery that was ordered by her PCP. Patient was informed a PACC visit is not needed. H&P 01/25/2024 Dr Pepe. Asiya SLAUGHTERN RN Resource nurse for the PACC Schedulers [facility] 01-27-2024 Miscellaneous Notes Called and spoke to patient regarding her Zepbound. Patient was already instructed to stop the medication 7 days prior to surgery. She is going to get the lab work done prior to surgery that was ordered by her PCP. Patient was informed a PACC visit is not needed. H&P 01/25/2024 Dr Pepe. Asiya SLAUGHTERN RN Resource nurse for the PACC Schedulers documented in this encounter [facility] 01-25-2024 Telephone encounter Note 02-21-2024 hemorrhoidectomy Tam [facility] 01-25-2024 Miscellaneous Notes 02-21-2024 hemorrhoidectomy Tam documented in this encounter [facility] 01-25-2024 Note HNO ID: [id number] Author: NAYA PEPE MD Service: ? Author Type: Physician Type: Progress Notes Filed: 01/25/2024 15:06 Note Text: HISTORY AND PHYSICAL Chika Good 1970 REFERRING PHYSICIAN: Latrice Etienne APRN.* CHIEF COMPLAINT: Hemorrhoids HPI: The patient is a 53 year old female with a complaint of symptomatic hemorrhoids. The patient notes issues with itchiness on her external hemorrhoids. She notes a small nodule on the right posterior aspect just inside the anal verge. She has tried suppositories which she felt worked for a little while but not recently. She noted issues with hemorrhoids approximately 10 years ago and now for the past 4 to 6 months has noted issues with itching and some discomfort. She has a family history of colon cancer. I performed upper and lower endoscopy on February 03, 2022. The patient was found of a 6 mm Polyp which returned as a hyperplastic polyp. I recommended follow-up colonoscopy in 5 years given her family history. Upper endoscopy demonstrated gastritis and mild distal esophagitis. The patient is being seen by me at the request of Latrice Etienne APRN.* my opinion and advice regarding symptomatic hemorrhoids. Has had hemorrhoidal banding twice with no improvement in the symptoms of her external symptomatic hemorrhoid PAST MEDICAL HISTORY Diagnosis Date Abnormal glandular Papanicolaou smear of cervix Abn. Pap smear (cervix) Acute gastritis without mention of hemorrhage Allergic rhinitis, seasonal Anxiety 07/07/2012 Chronic tension-type headache, intractable 03/17/2016 Depression 07/07/2012 Encounter for routine gynecological examination 01/21/[address] 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 Vitamin D deficiency 08/29/2023 Well adult exam 01/21/2020 Last done 10/26/21 PAST SURGICAL HISTORY Procedure Laterality Date ADENOIDECTOMY PRIMARY Adenoidectomy BREAST REDUCTION 09/2016 BX BREAST W/DEVICE 1ST LESION ULTRASOUND GUID Left 05/03/2015 U/S Needle core upper mid left breast DELIVERY ONLY 11/2007 [facility] COLONOSCOPY FLX DX W/COLLJ SPEC WHEN PFRMD 2003 Colonoscopy COLONOSCOPY FLX DX W/COLLJ SPEC WHEN PFRMD 08/21/2008 Colonoscopy COLONOSCOPY FLX DX W/COLLJ SPEC WHEN PFRMD 01/14/2015 COLONOSCOPY FLX DX W/COLLJ SPEC WHEN PFRMD 02/04/2020 Colonoscopy- repeat 5 year CONIZATION CERVIX W/WO DANDC RPR ELTRD EXC 1994 LEEP-Cervix DANDC, DIAG AND/OR THERAPEUTIC 12/2021 EGD 1992 REMOVAL OF FOREIGN BODY EGD TRANSORAL BIOPSY SINGLE/MULTIPLE 06/12/2008 ESOPHAGOGASTRODUODENOSCOPY TRANSORAL DIAGNOSTIC 05/16/2017 EGD ESOPHAGOGASTRODUODENOSCOPY TRANSORAL DIAGNOSTIC 02/04/2020 EGD- repeat in 1 year ESOPHAGOSCOPY FLEX BALLOON DILAT <30 MM DIAM 06/12/2008 SEPTOPLASTY 08/29/2017 Dr. Manny Sexton-nasal airway obstruction. deviated septum, inferior turbinate hypertrophy TONSILLECTOMY PRIMARY/SECONDARY Tonsillectomy Current Outpatient Medications Medication Sig tirzepatide, weight loss (ZEPBOUND) 12.5 mg/0.5 mL pen injector Inject 12.5 mg subcutaneously one time a week. Patient should start on January 24, 2024. omeprazole (PRILOSEC) 40 mg capsule Take 1 capsule by mouth once daily. ondansetron (ZOFRAN) 4 mg tablet Take 1 tablet by mouth every 8 hours as needed for nausea/vomiting for up to 30 doses. metFORMIN ER (GLUCOPHAGE XR) 500 mg 24 hr tablet Take 2 tablets by mouth daily with dinner. Norethindrone, Contraceptive, 0.35 mg tablet Take 1 tablet by mouth once daily. ADELINA 0.0375 mg/24 hr estradiol (ESTRACE) 0.01 % (0.1 mg/gram) vaginal cream atorvastatin (LIPITOR) 20 mg tablet Take 1 tablet by mouth daily at bedtime. For cholesterol. fluticasone-salmeterol (ADVAIR DISKUS) 250-50 mcg/dose inhaler Inhale 1 Puff as instructed two times a day. Rinse and gargle mouth after use with water. albuterol HFA (VENTOLIN HFA) 90 mcg/actuation inhaler Inhale 2 Puffs as instructed every 4 hours as needed. CHOLECALCIFEROL, VITAMIN D3, ORAL Take by mouth as directed. Combined with omega 3 DUPIXENT SYRINGE 300 mg/2 mL injection Inject 300 mg subcutaneously every 2 weeks. No current facility-administered medications for this visit. ALLERGIES: Patient has no known allergies. PERSONAL HISTORY: Social History Tobacco Use Smoking status: Former Current packs/day: 0.00 Types: Cigarettes Start date: 07/13/1991 Quit date: 07/12/2006 Years since quittin.5 Smokeless tobacco: Never Tobacco comments: SOCIAL SMOKER IN PAST Vaping Use Vaping status: Never Used Substance Use Topics Alcohol use: Yes Comment: rare,NOT WHILE Drug use: No FAMILY HISTORY: (more content not included)... [facility] 01-25-2024 History of Present illness Narrative HISTORY AND PHYSICAL Chika Good 1970 REFERRING PHYSICIAN: Latrice Etienne APRN.* CHIEF COMPLAINT: Hemorrhoids HPI: The patient is a 53 year old female with a complaint of symptomatic hemorrhoids. The patient notes issues with itchiness on her external hemorrhoids. She notes a small nodule on the right posterior aspect just inside the anal verge. She has tried suppositories which she felt worked for a little while but not recently. She noted issues with hemorrhoids approximately 10 years ago and now for the past 4 to 6 months has noted issues with itching and some discomfort. She has a family history of colon cancer. I performed upper and lower endoscopy on February 03, 2022. The patient was found of a 6 mm Polyp which returned as a hyperplastic polyp. I recommended follow-up colonoscopy in 5 years given her family history. Upper endoscopy demonstrated gastritis and mild distal esophagitis. The patient is being seen by me at the request of Latrice Etienne APRN.* my opinion and advice regarding symptomatic hemorrhoids. Has had hemorrhoidal banding twice with no improvement in the symptoms of her external symptomatic hemorrhoid PAST MEDICAL HISTORY Diagnosis Date Abnormal glandular Papanicolaou smear of cervix Abn. Pap smear (cervix) Acute gastritis without mention of hemorrhage Allergic rhinitis, seasonal Anxiety 07/07/2012 Chronic tension-type headache, intractable 03/17/2016 Depression 07/07/2012 Encounter for routine gynecological examination 01/21/[address] 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 Vitamin D deficiency 08/29/2023 Well adult exam 01/21/2020 Last done 10/26/21 PAST SURGICAL HISTORY Procedure Laterality Date ADENOIDECTOMY PRIMARY <AGE 13 Adenoidectomy BREAST REDUCTION 09/2016 BX BREAST W/DEVICE 1ST LESION ULTRASOUND GUID Left 05/03/2015 U/S Needle core upper mid left breast DELIVERY ONLY 11/2007 [facility] COLONOSCOPY FLX DX W/COLLJ SPEC WHEN PFRMD 2003 Colonoscopy COLONOSCOPY FLX DX W/COLLJ SPEC WHEN PFRMD 08/21/2008 Colonoscopy COLONOSCOPY FLX DX W/COLLJ SPEC WHEN PFRMD 01/14/2015 COLONOSCOPY FLX DX W/COLLJ SPEC WHEN PFRMD 02/04/2020 Colonoscopy- repeat 5 year CONIZATION CERVIX W/WO D&C RPR ELTRD EXC 1994 LEEP-Cervix D&C, DIAG AND/OR THERAPEUTIC 12/2021 EGD 1992 REMOVAL OF FOREIGN BODY EGD TRANSORAL BIOPSY SINGLE/MULTIPLE 06/12/2008 ESOPHAGOGASTRODUODENOSCOPY TRANSORAL DIAGNOSTIC 05/16/2017 EGD ESOPHAGOGASTRODUODENOSCOPY TRANSORAL DIAGNOSTIC 02/04/2020 EGD- repeat in 1 year ESOPHAGOSCOPY FLEX BALLOON DILAT <30 MM DIAM 06/12/2008 SEPTOPLASTY 08/29/2017 Dr. Manny Sexton-nasal airway obstruction. deviated septum, inferior turbinate hypertrophy TONSILLECTOMY PRIMARY/SECONDARY <AGE 13 Tonsillectomy Current Outpatient Medications Medication Sig tirzepatide, weight loss (ZEPBOUND) 12.5 mg/0.5 mL pen injector Inject 12.5 mg subcutaneously one time a week. Patient should start on January 24, 2024. omeprazole (PRILOSEC) 40 mg capsule Take 1 capsule by mouth once daily. ondansetron (ZOFRAN) 4 mg tablet Take 1 tablet by mouth every 8 hours as needed for nausea/vomiting for up to 30 doses. metFORMIN ER (GLUCOPHAGE XR) 500 mg 24 hr tablet Take 2 tablets by mouth daily with dinner. Norethindrone, Contraceptive, 0.35 mg tablet Take 1 tablet by mouth once daily. ADELINA 0.0375 mg/24 hr estradiol (ESTRACE) 0.01 % (0.1 mg/gram) vaginal cream atorvastatin (LIPITOR) 20 mg tablet Take 1 tablet by mouth daily at bedtime. For cholesterol. fluticasone-salmeterol (ADVAIR DISKUS) 250-50 mcg/dose inhaler Inhale 1 Puff as instructed two times a day. Rinse and gargle mouth after use with water. albuterol HFA (VENTOLIN HFA) 90 mcg/actuation inhaler Inhale 2 Puffs as instructed every 4 hours as needed. CHOLECALCIFEROL, VITAMIN D3, ORAL Take by mouth as directed. Combined with omega 3 DUPIXENT SYRINGE 300 mg/2 mL injection Inject 300 mg subcutaneously every 2 weeks. No current facility-administered medications for this visit. ALLERGIES: Patient has no known allergies. PERSONAL HISTORY: Social History Tobacco Use Smoking status: Former Current packs/day: 0.00 Types: Cigarettes Start date: 07/13/1991 Quit date: 07/12/2006 Years since quittin.5 Smokeless tobacco: Never Tobacco comments: SOCIAL SMOKER IN PAST Vaping Use Vaping status: Never Used Substance Use Topics Alcohol use: Yes Comment: rare,NOT WHILE Drug use: No FAMILY HISTORY: FAMILY HISTORY Problem Relation Age of Onset Asthma Mother Hypertension Father Colon Cancer Father Colon polyps Colon Cancer Maternal Grandfather Colon Cancer Paternal Grandfather REVIEW OF SYMPTOMS: The review of systems data was entered by the nurse and reviewed by me There are no exam notes on file for this visit. PHYSICAL EXAMINATION: General: The patient is 53 year old female, well nourished, well hydrated in no acute distress. The patient is oriented to time, place, and person. VITALS: Blood pressure 110/66, pulse 86, temperature 36.5 C (97.7 F), resp. rate 12, height 160 cm (5' 3), weight 85.7 kg (189 lb), last menstrual period 12/18/2023, SpO2 98%. HEENT: Normal cephalic, ataumatic, pupils are equally round, sclera are anicteric, mucous membranes are moist, oropharynx is clear. Neck has no masses, asymmetry or lymphadenopathy. Thyroid is unremarkable. Respiratory: Clear to auscultation and percussion. Normal respiratory excursion and pattern. Cardiac: Examination is regular rate and rhythm. Abdominal exam: Soft, nontender, with no palpable masses. No hepatosplenomegaly. No palpable hernias. Rectal exam: Significant hemorrhoids, grade 1 located in the right anterior aspect, otherwise no additional abnormalities or masses. Digital rectal exam -small nodule in the anal canal without significant tenderness consistent with a small thrombosed hemorrhoid. Failure of relaxation of the internal sphincter preventing adequate digital rectal exam. Extremities: no clubbing, cyanosis or edema. No adenopathy. Other: LABORATORY VALUES: As Noted RADIOLOGIC STUDIES: As Noted Assessment IMPRESSION: External and mixed hemorrhoids failure to relax, PLAN: I plan to perform an examination under anesthesia with likely single quadrant hemorrhoidectomy. The planned surgical procedure was discussed extensively with the patient. The risks, benefits and anticipated outcomes of the procedure, the risks and benefits of the alternatives to the procedure, and the roles and tasks of the personnel to be involved, were discussed with the patient. My staff has also explained the procedure in understandable terms and the patient was given the option to take printed material concerning the planned procedure. The patient had the opportunity to ask questions concerning the planned procedure. The patient freely consents to the planned procedure. Anticipated Surgical Procedure/ CPT Code: Examination Under Anesthesia, Hemorrhoidectomy - [id number] Anticipated Anesthetic: General Patient weight: Blood pressure 110/66, pulse 86, temperature 36.5 C (97.7 F), resp. rate 12, height 160 cm (5' 3), weight 85.7 kg (189 lb), last menstrual period 12/18/2023, SpO2 98%. BMI: Body mass index is 33.48 kg/m . Planned antibiotic: clindamycin 900mg IVPB propulsion motor and generator repairer to OR SCDs needed: Yes Filing And Polishing Supervisor Needed: Yes Pre Op Clearance: None Anticoagulation: No Diabetic: No Location: [facility] Diagnoses: (K64.1) Grade II hemorrhoids (primary encounter diagnosis) My findings have been communicated to Tahira via shared medical record. This note will be forwarded to Clark Javed MD. Return to Clinic: The patient is instructed to follow-up with me in 1 month if symptoms persist. Naya Pepe MD documented in this encounter [facility] 01-17-2024 Telephone encounter Note Patient notified of results and provider's instructions. Patient verbalizes understanding. Rylie Hardy LPN [facility] 01-17-2024 Miscellaneous Notes Patient notified of results and provider's instructions. Patient verbalizes understanding. Rylie Hardy LPN ----- Message from Abbey Smith PA-C sent at 01/17/2024 12:18 PM EST ----- Normal mammogram. Repeat in 1 year. documented in this encounter [facility] 01-17-2024 Telephone encounter Note ----- Message from Abbey Smith PA-C sent at 01/17/2024 12:18 PM EST ----- Normal mammogram. Repeat in 1 year. [facility] 01-16-2024 History of Present illness Narrative Radiology Service Progress Note PATIENT NAME: Chika Good DATE OF SERVICE: January 16, 2024 TIME: 2:21 PM PATIENT IDENTITY VERIFICATION COMPLETED USING TWO (2) IDENTIFIERS: Name and Date of confirmed by patient verbally. FALL SCREENING: Has the patient had 2 falls in the last year or 1 fall with injury or currently using an Ambulatory Assistive Device (Walker, Cane, Wheelchair, Crutches, etc.)? No PATIENT GENDER DATA: Female. status: : No status: NO. PATIENT RELEVANT IMPLANT DATA REVIEWED: Not Applicable PATIENT PRESENTS WITH AN IMPLANTABLE OR ATTACHED HAULAGE BOSS: No RADIOLOGY DEPARTMENT: Mammography PERIPHERAL IV DATA: Not applicable SIGNED BY: Vasyl Nunez January 16, 2024 2:21 PM documented in this encounter [facility] 01-16-2024 Note HNO ID: [id number] Author: DIANA PEREZ Mammo Tech Service: ? Author Type: Mechanical Product Engineer Type: Progress Notes Filed: 01/16/2024 14:22 Note Text: Radiology Service Progress Note PATIENT NAME: Chika Good DATE OF SERVICE: January 16, 2024 TIME: 2:21 PM PATIENT IDENTITY VERIFICATION COMPLETED USING TWO (2) IDENTIFIERS: Name and Date of confirmed by patient verbally. FALL SCREENING: Has the patient had 2 falls in the last year or 1 fall with injury or currently using an Ambulatory Assistive Device (Walker, Cane, Wheelchair, Crutches, etc.)? No PATIENT GENDER DATA: Female. status: : No status: NO. PATIENT RELEVANT IMPLANT DATA REVIEWED: Not Applicable PATIENT PRESENTS WITH AN IMPLANTABLE OR ATTACHED HAULAGE BOSS: No RADIOLOGY DEPARTMENT: Mammography PERIPHERAL IV DATA: Not applicable SIGNED BY: Vasyl Nunez January 16, 2024 2:21 PM [facility] 01-03-2024 History of Present illness Narrative Chief Complaint Patient presents with: Physical HPI Chika Good is a 53 year old female who presents here today for Physical. Patient with hx of hyperlipidemia, LITO, Asthma, GERD, allergies, depression, anxiety, obesity and those as below. Patient has been doing well. No new issues or concerns. Past medical history, appointments, medications, allergies reviewed. Previous Medical History PAST MEDICAL HISTORY Diagnosis Date Abnormal glandular Papanicolaou smear of cervix Abn. Pap smear (cervix) Acute gastritis without mention of hemorrhage Allergic rhinitis, seasonal Anxiety 07/07/2012 Chronic tension-type headache, intractable 03/17/2016 Depression 07/07/2012 Encounter for routine gynecological examination 01/21/[address] 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 Well adult exam 01/21/2020 Last done 10/26/21 Previous Surgical History PAST SURGICAL HISTORY Procedure Laterality Date ADENOIDECTOMY PRIMARY <AGE 13 Adenoidectomy BREAST REDUCTION 09/2016 BX BREAST W/DEVICE 1ST LESION ULTRASOUND GUID Left 05/03/2015 U/S Needle core upper mid left breast DELIVERY ONLY 11/2007 [facility] COLONOSCOPY FLX DX W/COLLJ SPEC WHEN PFRMD 2003 Colonoscopy COLONOSCOPY FLX DX W/COLLJ SPEC WHEN PFRMD 08/21/2008 Colonoscopy COLONOSCOPY FLX DX W/COLLJ SPEC WHEN PFRMD 01/14/2015 COLONOSCOPY FLX DX W/COLLJ SPEC WHEN PFRMD 02/04/2020 Colonoscopy- repeat 5 year CONIZATION CERVIX W/WO D&C RPR ELTRD EXC 1994 LEEP-Cervix D&C, DIAG AND/OR THERAPEUTIC 12/2021 EGD 1992 REMOVAL OF FOREIGN BODY EGD TRANSORAL BIOPSY SINGLE/MULTIPLE 06/12/2008 ESOPHAGOGASTRODUODENOSCOPY TRANSORAL DIAGNOSTIC 05/16/2017 EGD ESOPHAGOGASTRODUODENOSCOPY TRANSORAL DIAGNOSTIC 02/04/2020 EGD- repeat in 1 year ESOPHAGOSCOPY FLEX BALLOON DILAT <30 MM DIAM 06/12/2008 SEPTOPLASTY 08/29/2017 Dr. Manny Sexton-nasal airway obstruction. deviated septum, inferior turbinate hypertrophy TONSILLECTOMY PRIMARY/SECONDARY <AGE 13 Tonsillectomy Family History FAMILY HISTORY Problem Relation Age of Onset Asthma Mother Hypertension Father Colon Cancer Father Colon polyps Colon Cancer Maternal Grandfather Colon Cancer Paternal Grandfather Blood Disease Sister Asthma Brother Patient Allergies ALLERGIES No Known Allergies Current Medications Current Outpatient Medications on File Prior to Visit Medication Sig omeprazole (PRILOSEC) 40 mg capsule Take 1 capsule by mouth once daily. ondansetron (ZOFRAN) 4 mg tablet Take 1 tablet by mouth every 8 hours as needed for nausea/vomiting for up to 30 doses. metFORMIN ER (GLUCOPHAGE XR) 500 mg 24 hr tablet Take 2 tablets by mouth daily with dinner. Norethindrone, Contraceptive, 0.35 mg tablet Take 1 tablet by mouth once daily. ADELINA 0.0375 mg/24 hr estradiol (ESTRACE) 0.01 % (0.1 mg/gram) vaginal cream atorvastatin (LIPITOR) 20 mg tablet Take 1 tablet by mouth daily at bedtime. For cholesterol. fluticasone-salmeterol (ADVAIR DISKUS) 250-50 mcg/dose inhaler Inhale 1 Puff as instructed two times a day. Rinse and gargle mouth after use with water. albuterol HFA (VENTOLIN HFA) 90 mcg/actuation inhaler Inhale 2 Puffs as instructed every 4 hours as needed. CHOLECALCIFEROL, VITAMIN D3, ORAL Take by mouth as directed. Combined with omega 3 DUPIXENT SYRINGE 300 mg/2 mL injection Inject 300 mg subcutaneously every 2 weeks. No current facility-administered medications on file prior to visit. Social History Social History Tobacco Use Smoking status: Former Current packs/day: 0.00 Types: Cigarettes Start date: 07/13/1991 Quit date: 07/12/2006 Years since quittin.4 Smokeless tobacco: Never Tobacco comments: SOCIAL SMOKER IN PAST Vaping Use Vaping status: Never Used Substance Use Topics Alcohol use: Yes Comment: rare,NOT WHILE Drug use: No Review of Symptoms REVIEW OF SYSTEMS GENERAL: No unintentional weight loss, malaise or fevers HEENT: Negative for frequent or significant headaches, No changes in hearing or vision, no nose bleeds or other nasal problems NECK: Negative for lumps, goiter, pain and significant neck swelling RESPIRATORY: Negative for cough, hemoptysis, wheezing, COPD, dyspnea or shortness of breath CARDIOVASCULAR: Negative for chest pain, leg swelling, hypertension, CHF or palpitations GI: No nausea, vomiting, or diarrhea, No heartburn or reflux symptoms, and no blood : No history of dysuria, frequency or blood MUSCULOSKELETAL: Negative for joint pain or swelling, back pain or muscle pain SKIN: Negative for lesions, rash, and itching PSYCH: Negative for sleep disturbance, mood disorder and recent psychosocial stressors. Is anxious but not overwhelming. HEMATOLOGY/LYMPHOLOGY: Negative for prolonged bleeding, bruising easily or swollen nodes ENDOCRINE: Negative for cold or heat intolerance, polyuria, polydipsia and goiter NEURO: No history of headaches, syncope, paralysis, seizures or tremors EXAM: BP 108/78 (BP Site: Left Arm, BP Position: Sitting, BP Cuff Size: Large Adult) Pulse 80 Resp 16 Ht 160 cm (5' 3) Wt 87.5 kg (193 lb) LMP 12/18/2023 (Exact Date) BMI 34.19 kg/m Last 5 Encounter Wt Readings: Date: Wt: 01/03/2024 87.1 kg (192 lb) 01/03/2024 87.5 kg (193 lb) 11/25/2023 90.5 kg (199 lb 9.6 oz) 10/20/2023 91.5 kg (201 lb 11.5 oz) 10/20/2023 89.8 kg (198 lb) General Appearance: Well appearing, alert, in no acute distress, well-hydrated, well nourished. Obese. Skin: Skin color, texture, turgor normal, no suspicious rashes or lesions. Head: Normocephalic, no masses, lesions, tenderness or abnormalities. Eyes: Anicteric sclera. Pupils are equally round and reactive to light. Extraocular movements are intact. . Ears: External ears, TM's normal, canals clear. Nose/Sinuses: Nares normal, septum midline, mucosa normal, no drainage or sinus tenderness. Oropharynx: Lips, mucosa, and tongue normal, teeth and gums normal, oropharynx normal. Neck: Supple, no adenopathy; thyroid symmetric, normal size, no bruits. Lungs: Lungs clear to auscultation. No wheezing, rhonchi, rales.. Heart: RRR without murmur, gallop, or rubs. No ectopy. Abdomen: Normal abdominal exam, Abdomen soft, non-tender. Bowel sounds normal. No masses, organomegaly. Extremities: No deformities, edema, skin discoloration, clubbing or cyanosis. Good capillary refill. . Musculoskeletal: Muscular strength intact, No joint swelling, deformity, or tenderness. Peripheral Pulses: Normal. Neurologic: Gait normal. Reflexes normal and symmetric. Sensation to light touch and crainal nerves 2-12 intact.. Health Maintenance List Shingrix Vaccine(1 of 2) Never done Influenza Vaccine(1) due on 11/13/2023 Covid-19 Vaccine( - 2023- season) due on 11/13/2023 Mammogram Screening due on 01/13/2024 Annual PCP Team Chronic Disease Visit due on 06/13/2024 Colorectal Cancer Screening due on 02/03/2025 Diabetes Screening due on 06/13/2026 Cervical Cancer Screening due on 05/10/2027 Lipid Screening due on 04/18/2028 DTaP,Tdap,Td Vaccine(3 - Td or Tdap) due on 11/01/2032 Hepatitis C Screening Completed Pneumococcal Vaccine Completed Hepatitis B Vaccine Discontinued Spirometry Discontinued HIV Screening Discontinued Data reviewed A/P ASSESSMENT/PLAN: 1. Well adult exam - ICD9: V70.0, ICD10: Z00.00 (primary diagnosis) - Counseled on healthy diet and regular exercise - Discussed need and benefit for weight loss. BMI 34.19 kg/(m^2) - Patient counseled on and acknowledged vaccine benefits/risks/side effects; VIS provided: Influenza - Follow up for annual exam in one year - advised on COVID and Shingrix. 2. Hyperlipidemia, mixed - ICD9: 272.2, ICD10: E78.2 - Control undetermined, due for labs - Continue current medications - Counseled on healthy diet and regular exercise - Discussed need for and benefit of weight loss. BMI 34.19 kg/(m^2) 3. GERD without esophagitis - ICD9: 530.81, ICD10: K21.9 - Continue treatment with Prilosec 40 mg QD 4. Moderate persistent asthma without complication - ICD9: 493.90, ICD10: J45.40 - Mild persistent asthma stable - Continue current medications - Avoidance of triggers recommended 5. Chronic tension-type headache, intractable - ICD9: 339.12, ICD10: G44.221 - stable without issues. 6. Depression, unspecified depression type - ICD9: 311, ICD10: F32.A - stable not needing meds. 7. Anxiety - ICD9: 300.00, ICD10: F41.9 - as per #6 8. Obesity (BMI 35.0-39.9 without comorbidity) - ICD9: 278.00, ICD10: E66.9 Weight decreasing - Behavioral intervention and - Pharmacological intervention: patient under care of CLINICAL LABORATORY SCIENTIST for this. 9. LITO (obstructive sleep apnea) - ICD9: 327.23, ICD10: G47.33 - working with sleep med. 10. Encounter for screening mammogram for breast cancer - ICD9: V76.12, ICD10: Z12.31 - Completed pelvic and breast exam - Encouraged monthly BSE - Follow up for annual exam in one year. 11. Encounter for screening for diabetes mellitus - ICD9: V77.1, ICD10: Z13.1 Check A1c. 12. Encounter for immunization - ICD9: V03.89, ICD10: Z23 - INFLUENZA VACCINE, AGE [id number]-[id number], TRIVALENT (AFLURIA, FLULAVAL, FLUVIRIN, FLUZONE): given Requested Prescriptions Signed Prescriptions Disp Refills omeprazole (PRILOSEC) 40 mg capsule 90 capsule 1 Sig: Take 1 capsule by mouth once daily. F/u in a year for complete PER or sooner if needed. Clark Javed MD documented in this encounter [facility] 01-03-2024 Note HNO ID: [id number] Author: CLARK JAVED MD Service: ? Author Type: Physician Type: Progress Notes Filed: 01/03/2024 15:26 Note Text: Chief Complaint Patient presents with: Physical HPI Chika Good is a 53 year old female who presents here today for Physical. Patient with hx of hyperlipidemia, LITO, Asthma, GERD, allergies, depression, anxiety, obesity and those as below. Patient has been doing well. No new issues or concerns. Past medical history, appointments, medications, allergies reviewed. Previous Medical History PAST MEDICAL HISTORY Diagnosis Date Abnormal glandular Papanicolaou smear of cervix Abn. Pap smear (cervix) Acute gastritis without mention of hemorrhage Allergic rhinitis, seasonal Anxiety 07/07/2012 Chronic tension-type headache, intractable 03/17/2016 Depression 07/07/2012 Encounter for routine gynecological examination 01/21/[address] 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 Well adult exam 01/21/2020 Last done 10/26/21 Previous Surgical History PAST SURGICAL HISTORY Procedure Laterality Date ADENOIDECTOMY PRIMARY Adenoidectomy BREAST REDUCTION 09/2016 BX BREAST W/DEVICE 1ST LESION ULTRASOUND GUID Left 05/03/2015 U/S Needle core upper mid left breast DELIVERY ONLY 11/2007 [facility] COLONOSCOPY FLX DX W/COLLJ SPEC WHEN PFRMD 2003 Colonoscopy COLONOSCOPY FLX DX W/COLLJ SPEC WHEN PFRMD 08/21/2008 Colonoscopy COLONOSCOPY FLX DX W/COLLJ SPEC WHEN PFRMD 01/14/2015 COLONOSCOPY FLX DX W/COLLJ SPEC WHEN PFRMD 02/04/2020 Colonoscopy- repeat 5 year CONIZATION CERVIX W/WO DANDC RPR ELTRD EXC 1993 LEEP-Cervix DANDC, DIAG AND/OR THERAPEUTIC 12/2021 EGD 1992 REMOVAL OF FOREIGN BODY EGD TRANSORAL BIOPSY SINGLE/MULTIPLE 06/12/2008 ESOPHAGOGASTRODUODENOSCOPY TRANSORAL DIAGNOSTIC 05/16/2017 EGD ESOPHAGOGASTRODUODENOSCOPY TRANSORAL DIAGNOSTIC 02/04/2020 EGD- repeat in 1 year ESOPHAGOSCOPY FLEX BALLOON DILAT <30 MM DIAM 06/12/2008 SEPTOPLASTY 08/29/2017 Dr. Manny Sexton-nasal airway obstruction. deviated septum, inferior turbinate hypertrophy TONSILLECTOMY PRIMARY/SECONDARY Tonsillectomy Family History FAMILY HISTORY Problem Relation Age of Onset Asthma Mother Hypertension Father Colon Cancer Father Colon polyps Colon Cancer Maternal Grandfather Colon Cancer Paternal Grandfather Blood Disease Sister Asthma Brother Patient Allergies ALLERGIES No Known Allergies Current Medications Current Outpatient Medications on File Prior to Visit Medication Sig omeprazole (PRILOSEC) 40 mg capsule Take 1 capsule by mouth once daily. ondansetron (ZOFRAN) 4 mg tablet Take 1 tablet by mouth every 8 hours as needed for nausea/vomiting for up to 30 doses. metFORMIN ER (GLUCOPHAGE XR) 500 mg 24 hr tablet Take 2 tablets by mouth daily with dinner. Norethindrone, Contraceptive, 0.35 mg tablet Take 1 tablet by mouth once daily. ADELINA 0.0375 mg/24 hr estradiol (ESTRACE) 0.01 % (0.1 mg/gram) vaginal cream atorvastatin (LIPITOR) 20 mg tablet Take 1 tablet by mouth daily at bedtime. For cholesterol. fluticasone-salmeterol (ADVAIR DISKUS) 250-50 mcg/dose inhaler Inhale 1 Puff as instructed two times a day. Rinse and gargle mouth after use with water. albuterol HFA (VENTOLIN HFA) 90 mcg/actuation inhaler Inhale 2 Puffs as instructed every 4 hours as needed. CHOLECALCIFEROL, VITAMIN D3, ORAL Take by mouth as directed. Combined with omega 3 DUPIXENT SYRINGE 300 mg/2 mL injection Inject 300 mg subcutaneously every 2 weeks. No current facility-administered medications on file prior to visit. Social History Social History Tobacco Use Smoking status: Former Current packs/day: 0.00 Types: Cigarettes Start date: 07/13/1991 Quit date: 07/12/2006 Years since quittin.4 Smokeless tobacco: Never Tobacco comments: SOCIAL SMOKER IN PAST Vaping Use Vaping status: Never Used Substance Use Topics Alcohol use: Yes Comment: rare,NOT WHILE Drug use: No Review of Symptoms REVIEW OF SYSTEMS GENERAL: No unintentional weight loss, malaise or fevers HEENT: Negative for frequent or significant headaches, No changes in hearing or vision, no nose bleeds or other nasal problems NECK: Negative for lumps, goiter, pain and significant neck swelling RESPIRATORY: Negative for cough, hemoptysis, wheezing, COPD, dyspnea or shortness of breath CARDIOVASCULAR: Negative for chest pain, leg swelling, hypertension, CHF or palpitations GI: No nausea, vomiting, or diarrhea, No heartburn or reflux symptoms, and no blood : No history of dysuria, frequency or blood MUSCULOSKELETAL: Negative for joint pain or swelling, back pain or muscle pain SKIN: Negat (more content not included)... [facility] 01-03-2024 Instructions Kailyn Gill MD - 01/03/2024 10:44 AM EDT <15 gram carb fruit options Berries have the lowest sugar content 1/2 medium apple - 12.5 carbs 1/2 medium avocado - 6.5 gm carbs 1/2 medium banana - 15 carbs 1/2 cup blueberries - 11 carbs - may actually help you lose weight 1/2 cup fresh cherries -11 carbs 1 medium [place] -9 carbs 1/2 cup fresh cranberries - 6.5 carbs 1/2 c grapes - 15 carbs 1/2 medium grapefruit - 10.5 carbs 1/2 cup diced honeydew melon - 8 carbs 1 medium kiwi without skin - 11 carbs 1/2 cup sliced daniel -14 carbs 1 medium nectarine - 15 carbs 1 medium orange -15.5 carbs 1 medium peach -14.5 carbs 1/2 cup fresh pineapple -11 carbs 1 medium plum -7.5 carbs 1 prune - 6 carbs 1/4 c raisins - 31.25 carbs 1/2 cup raspberries -7.5 carbs 1/2 c strawberries - 12.7 carbs 1 medium tangerine -12 carbs 1/2 cup diced watermelon - 6 carbs 5 (FIVE) gram carb vegetable options 1 cup raw OR cup cooked: Asparagus [place] sprouts Beets Broccoli Brussel sprouts Cabbage Carrots Cauliflower Celery [place] Eggplant Green beans Lettuce Peppers Snap peas Spaghetti squash Spinach Tomato Turnips Zucchini 15 gram carb vegetable options cup cooked corn or hominy corn on the cob, large (5 oz) cup cooked green peas 4.3 gm complete protein cup cooked garcia beans 1 small potato or sweet potato cup cooked potato, plain cup cooked sweet potato, plain 1 cup winter squash (pumpkin, acorn, butternut) 1 cup marinara or pasta sauce - check label cup tomato juice cup tomato puree Beans, Seeds, Nuts cup cooked beans (kidney, pepe, red, green, etc.) cup cooked lentils cup baked beans 4 tablespoons nut butter Grains Brown rice 1/2 c 5.5g protein 24 carb White long-grain rice 1/2 c 2g protein 22.5 carb Quinoa 1/2 c 4 gm complete protein 25 carb Oatmeal, old fashioned 1/2 c 5g protein 27g carb Protein - no carbs Egg 1 large - 6g Egg white 1 large 3.6g 3 oz is approximately the size of a deck of cards and equals 21 g protein so 4 oz is 28 gm protein Beef, Chicken, Adams, Pork, Hines 1 oz 7g Fish, Tuna Fish 1 oz 7g (Starkist tuna packet 2.6 oz 17 gm protein) Seafood (Crabmeat, Shrimp, Lobster) 1 oz 6g Protein shakes (read labels) Premier Protein or generic [employer] Equate, [employer] High Performance- 30g protein & 1g carb - meal replacement Premier Protein powder or generic- 30 gm protein, 1g carb Premier Protein plant protein powder - 25 gm protein, 0 sugar/2 carb Vanilla and chocolate (not a meal replacement) Fairlife 30 gram protein - 30g protein & 3g carb BOOST Glucose Control Max 30g Protein Nutritional Drink - 30g protein & 1 carb - meal replacement Slimfast High Protein - 20g protein & 1g carb Ensure Max Protein Nutrition Shake 30g protein & 2 carb Protein AND carbs Beef/Adams Jerky 1 oz dried 10-15g protein - check carb count, can be high if sugar added Slim Jimbo - 6 gm protein and 4 net carb Great Value original turkey sausage sticks - 7 gm protein and 2 gm carb [employer] (at [employer]) Original smoked sausage sticks - 8 gm protein and 0 carb Imitation Crab Meat 1 oz - 2g protein & 4g carb Milk, skim 2% or 1% 8 oz - 8g protein & 12g carb English yogurt Full Fat English Yogurt 1 cup - 20.4g protein & 9.1g carb 2% English Yogurt 1 cup - 22.7g protein & 9.1g carb 0% (fat-free) English Yogurt - 1 cup 24g protein & 9.3g carb Aldi Protein English yogurt single svg - 15g protein & 7g carb Chobani Zero Sugar single svg: - 12g protein & 5g carb Dannon English Light + Fit 1 single svg - 12g protein & 9g carb Oikos Pro single svg - 20g protein & 8g carb Oikos Triple Zero English Nonfat Yogurt 1 single svg - 15g protein & 7g carb :ratio, KETO Friendly Dairy Snack 1 single svg - 15g protein & 2g carb :ratio Protein 1 single svg - 25g protein & 8g carb Two Good Lowfat English Yogurt, [place], Lower Sugar - 12g protein & 2g carb Yoplait Protein 1 single svg 15gm protein & 5gm carb Dairy Free - [place] unsweetened English almond/soy 15 gm protein & 3 gm carb Cheese each oz Brie 5.9g protein & 0.1g carb Cheddar 7g protein & 0.4g carb Branden 6.7g protein & 0.7g carb Cream Cheese 1.7g protein & 1.2g carb Feta 4g protein & 1.2g carb Mozzarella 6.3g protein & 0.6g carb Parmesan 10g protein & 0.9g carb Uzbek 7.6g protein & 1.5g carb Cottage Cheese 1/2 c Breakstone 2% 13g protein 7g carb Della 2% 13g protein 5 g carb Good Culture 2% 14g protein 3g carb [place] s Low Fat 12g protein & 4g carb Legumes Lentils cup 9g protein & 20g carb Garcia beans cup 7g protein & 20g carb Kidney, Black, [place], Cannellini beans cup 8g protein & 20g carb Soybeans 1/2 c 14g complete protein & 8.5g carb Bailey milk, unsweetened 8 oz 1g protein & 2g carb Soy milk 8 oz 3.5g protein & 1.6g carb Tofu 1/2 cup 10g protein & 2.3g carb Peanut butter, natural 2 Tbsp 7-8g protein & 4g net carbs, 190 calories PB2 powder 2 Tbsp 6g protein & 5g carb Nuts and Seeds per oz Almonds - 5.9g protein & 6.1g carb [place] Nuts - 4.0g protein & 3.4g carb Cashews - 5.1g protein & 9.2g carb Hazelnuts - 4.2g protein & 4.7g carb Hemp seeds 3 T/30 gms - 9.5 gm complete protein and 2.5 gm carb Peanuts - 7g protein & 4.6g carb Pecans - 2.6g protein & 3.9g carb Pistachios - 5.8g protein & 7.8g carb Pumpkin Seeds - 6.9g protein & 5g carb [place] Seeds - 5.8g protein & 5.6g carb Walnuts - 4.3g protein & 3.8g carb [place]ame Beans snack 1 pack 11 gm complete protein 2 carb 14 Ways to Lower Your Insulin Levels Insulin is an extremely important hormone that s produced by your pancreas. It has many functions, such as allowing your cells to take in sugar from your blood for energy. However, living with chronically high levels of insulin, also known as hyperinsulinemia, can lead to excessive weight gain and serious health problems like heart disease and cancer (1, 2, 3). High blood insulin levels can also cause your cells to become resistant to the hormone s effects. This condition, known as insulin resistance, leads your pancreas to produce even more insulin, creating a precarious cycle (4). If your doctor has advised you to lower your insulin levels, here are 14 things you can do. 1. Follow a lower-carb eating plan Of the three macronutrients -- carbohydrates, protein, and fat -- carbs raise blood sugar and insulin levels the most. Even though carbs are an essential part of most balanced, nutritious diets, lower-carb diets can be very effective for losing weight and managing diabetes (5, 6). Many studies have confirmed the effectiveness of lower-carb eating plans for lowering insulin levels and increasing insulin sensitivity, especially when compared with other diets. People living with health conditions characterized by insulin resistance, such as metabolic syndrome and polycystic ovary syndrome (PCOS), may experience a dramatic lowering of insulin with carb restriction (6, 7, 8). In a smaller study from 2008, people with metabolic syndrome were randomized to receive either a low fat or low carb diet containing 1,500 calories (9). Insulin levels dropped by an average of 50% in the low carb group, compared with 19% in the low fat group. Those on the low carb diet also lost more weight (9). In another small study from 2012, when people with PCOS ate a lower-carb diet containing enough calories to maintain their weight, they experienced greater reductions in insulin levels than when they ate a higher-carb diet (10). Summary While carbohydrates are typically an important part of a balanced diet, lower-carb diets have been shown to increase insulin sensitivity and reduce insulin levels in people living with obesity, diabetes, metabolic syndrome, and PCOS. 2. Consider supplementing with apple cider vinegar Apple cider vinegar (ACV) may help prevent insulin and blood sugar spikes after eating, particularly when consumed with high carbohydrate foods (11). One review found that consuming 2-6 tablespoons of vinegar daily appears to improve glycemic response to carbohydrate-rich meals. It s important to note, however, that this review incorporated studies that used other forms of vinegar in addition to ACV (12). Another review of studies found that consuming vinegar with meals affects both blood glucose and insulin levels. Individuals consuming vinegar with meals had lower blood sugar and insulin levels than those who didn t consume it. But again, this review did not specify ACV (13). A third review of studies from 2020 specifically targeted ACV analyzed its effect on glycemic control in adults (14). The researchers found that consuming ACV significantly decreased fasting blood sugar and HbA1C (a measure of blood sugar over time). However, ACV did not seem to affect fasting insulin levels or insulin resistance (14). Summary Vinegar may help ease high blood sugar and insulin levels after meals, particularly when those meals are high in carbs. However, results are mixed and more research is needed -- especially around apple cider vinegar in particular. 3. Keep an eye on portion sizes Your pancreas releases different amounts of insulin depending on the type of food you eat, but eating a large amount of foods that cause your body to produce extra insulin can eventually lead to hyperinsulinemia. This is of particular concern for people who are already living with obesity and insulin resistance (15). In one small 2017 study, otherwise healthy people classified as having either a normal BMI or a higher BMI each ate meals with different glycemic loads for a few days. Researchers found that while the meals with a higher glycemic load (those with more sugar and carbs) spiked everyone s blood sugar, the blood sugar of individuals with BMIs in the obese category stayed elevated longer (16). Consuming fewer calories has consistently been shown to increase insulin sensitivity and decrease insulin levels in people living with excess weight and obesity, regardless of the type of diet they consume (17, 18, 19, 20). One small study from 2011 analyzed different weight loss methods in 157 people living with metabolic syndrome, which is a group of conditions that include a larger waist circumference and high blood sugar (19). The researchers found that fasting insulin levels decreased by 16% in the group that practiced calorie restriction and 12% in the group that practiced portion control (19, 21). Even though calorie restriction has been shown to ease excess insulin levels, It s a good idea to seek the help of a cmm inspector or doctor before making any dietary changes to be sure you aren t missing out on any important macro or micronutrients. Summary Reducing calorie intake can help lower insulin levels in people living with excess weight or obesity who have type 2 diabetes or metabolic syndrome. 4. Lower your intake of all forms of sugar Sugar may very well be the most important ingredient to keep an eye on if you re trying to lower your insulin levels. Diets high in added sugar are associated with insulin resistance and may promote the development of metabolic disease (22). In a small study from 2008, otherwise healthy people were tasked with eating an increased amount of either candy (sugar) or peanuts (fat). The candy group experienced a 31% increase in fasting insulin levels, while the peanut group had a 12% increase (23). In another small study from 2013, otherwise healthy adults consumed jams containing varying amounts of sugar. The adults who consumed high sugar jams saw their insulin levels rise significantly as compared with those who ate the lower-sugar jams (24). Fructose is a type of natural sugar found in table sugar, honey, fruit, corn syrup, agave, and syrup. While some studies have singled out fructose as particularly harmful for blood sugar control and insulin resistance, there isn t enough evidence to suggest fructose is more harmful than other types of sugars when consumed in moderate amounts (25). Indeed, one study found that replacing glucose or sucrose with fructose actually lowered peak post-meal blood sugar and insulin levels, especially in people with prediabetes or type 1 or type 2 diabetes (26). Summary A high intake of sugar in any form has been shown to increase insulin levels and promote insulin resistance if consumed for a length of time. 5. Prioritize physical activity Engaging in regular physical activity can have powerful insulin-lowering effects. Aerobic exercise appears to be very effective at increasing insulin sensitivity in people living with obesity or type 2 diabetes (27, 28, 29). One study looked at the effect of sustained aerobic exercise versus high intensity interval training on metabolic fitness in men with obesity (29). Although both groups experienced improvements in fitness, only the group that performed sustained aerobic activity experienced significantly lower insulin levels (29). There s also research showing that resistance training can help decrease insulin levels in older adults and people who are more sedentary (30, 31). And lastly, combining aerobic and resistance exercise may be the best choice when it comes to positively affecting insulin sensitivity and levels (32, 33). Summary Aerobic exercise, strength training, or a combination of both may help lower insulin levels and increase insulin sensitivity. 6. Try adding cinnamon to foods and beverages Cinnamon is a delicious spice loaded with health-promoting antioxidants. Recent studies suggest that both individuals living with insulin resistance and those with relatively normal insulin levels who supplement with cinnamon may experience enhanced insulin sensitivity and decreased insulin levels (34, 35, 36). In one small, well-designed study, women with PCOS who took 1.5 grams of cinnamon powder daily for 12 weeks had significantly lower fasting insulin and insulin resistance than women who took a placebo (35). In another small, well-designed study, individuals living with type 2 diabetes who took 500 mg of cinnamon powder twice daily for 3 months had lower fasting insulin and insulin resistance than those who took a placebo (34). Improvements in insulin and insulin sensitivity were most pronounced for individuals with higher BMIs (34). It s important to note that there is no recommended dose of cinnamon that has been tested across the board, and not all studies have found that cinnamon helps lower insulin levels or increases insulin sensitivity. Cinnamon s effects may vary from person to person (37, 38). Summary Some studies have found that adding cinnamon to foods or beverages lowers insulin levels and increases insulin sensitivity, but results are mixed. 7. When eating carbs, choose complex carbs While complex carbs are an important part of a nutritious diet, refined or simple carbs don t usually contain a lot of fiber or micronutrients and are digested very quickly. Refined carbs include simple sugars as well as grains that have had the fibrous parts removed. Some examples are cereal with added sugar, highly processed fast foods, foods made with refined flour like certain breads and pastries, and white rice (39). Regularly consuming refined carbs can lead to several health problems, including high insulin levels and weight gain (40, 41). Furthermore, refined carbs have a high glycemic index (GI). The GI is a scale that measures a specific food s capacity to raise blood sugar. Glycemic load takes into account a food s glycemic index and the amount of digestible carbs contained in a serving (42). Some studies comparing foods with different glycemic loads have found that eating a rolq-gfxirepd-pdpg food raises insulin levels more than eating the same portion of a kos-zjqjkyqo-crhx food, even if the carb contents of the two foods are similar (43, 44). However, other studies comparing mdol-qeebzccx-hnek and pgpl-fwxyzeka-rkwlt diets with krt-fwntymnz-ncvt and nqn-nqjhoaus-mnjrk diets have found no difference in their effects on insulin levels or insulin sensitivity (45, 46). Summary Replacing refined carbs, which are digested quickly and can sharply raise blood sugar, with slower-digesting complex carbs and whole grains may help lower insulin levels. 8. Increase your overall activity level Living an active lifestyle can help reduce insulin levels. A 2005 study of more than 1,600 people found that the most sedentary people (who didn t spend free time engaged in moderate or vigorous activity) were nearly twice as likely to have metabolic syndrome as those who did at least 150 minutes of moderate activity per week (47). Other studies have shown that getting up and walking around, rather than sitting for prolonged periods, can help keep insulin levels from spiking after a meal (48). One study looked at the effect of physical activity on insulin levels in men with extra weight who were at risk for type 2 diabetes. Those who took the most steps per day had the greatest reduction in insulin levels and belly fat compared with those who took the fewest steps (49). Summary Avoiding sitting for prolonged periods and increasing the amount of time you spend walking or doing other moderate activities may help reduce insulin levels. 9. Consider intermittent fasting Intermittent fasting (an eating plan where you have set hours for eating and set hours for fasting during a 24-hour period) has been popping up in headlines recently, specifically around its possible weight loss benefits. Research also suggests intermittent fasting may help reduce insulin levels as effectively as or more effectively than daily calorie restriction (50, 51). A 2019 study compared alternate-day fasting with calorie restriction in adults with extra weight or obesity and insulin resistance (52). Those using alternate-day fasting for 12 months had greater reductions in fasting insulin and insulin resistance than those who restricted their calorie intake, as well as those in the control group (52). Although many people find intermittent fasting beneficial and enjoyable, it doesn t work for everyone and may cause problems in some people. A doctor or cmm inspector can help you figure out whether intermittent fasting is right for you and how to do it safely. Summary Intermittent fasting may help reduce insulin levels. However, more research needs to be done, and this way of eating may not suit everyone. 10. Increase soluble fiber intake Soluble fiber provides a number of health benefits, including aiding in weight loss and reducing blood sugar levels. After you eat, the soluble fiber in food absorbs water and forms a gel, which slows down the movement of food through your digestive tract. This promotes feelings of fullness and keeps your blood sugar and insulin from rising too quickly after a meal (53, 54). One observational study from 2013 found that individuals assigned female at who ate the most soluble fiber were half as likely to be insulin-resistant as individuals assigned female who ate the least soluble fiber (55). Soluble fiber also helps feed the friendly bacteria that live in your colon, which may improve gut health and reduce insulin resistance. In a 6-week controlled study of older women with obesity, those who took flaxseed (which contains soluble fiber) experienced greater increases in insulin sensitivity and lower insulin levels than women who took a probiotic or placebo (56). Overall, fiber from whole foods appears to be more effective at reducing insulin than fiber in supplement form, although results are mixed. One study found that insulin decreased when people consumed black beans but not when they took a fiber supplement (57). Summary Soluble fiber, especially from whole foods, has been shown to increase insulin sensitivity and lower insulin levels, particularly in people living with obesity or type 2 diabetes. 11. Concentrate on weight loss, if advised The distribution of fat throughout your body is determined by age, sex hormones, and genetic variation (58). An overabundance of belly fat -- also known as visceral or abdominal fat -- in particular is linked to many health issues. Visceral fat can promote inflammation and insulin resistance, which drives hyperinsulinemia (59, 60, 61). A small study from 2013 suggests that losing visceral fat can lead to increased insulin sensitivity and lower insulin levels (62). Interestingly, another small study from 2013 found that people who lost abdominal fat retained the benefits for insulin sensitivity even after regaining a portion of the belly fat (63). There is no way to specifically target visceral fat when losing weight. However, visceral fat loss is linked to subcutaneous fat loss, so when you lose weight in general, you ll likely also lose visceral fat. Furthermore, studies show that when you lose weight, you lose a higher percentage of visceral fat than fat throughout the rest of your body (64). If your doctor has advised you to lose weight, talk with them about the best weight loss program for you. Summary If your doctor advises you to do so, losing visceral fat can increase insulin sensitivity and help reduce your insulin levels. While you can t target visceral fat specifically, when you lose weight overall, you lose visceral fat as well. 12. Incorporate green tea into your diet Green tea contains high amounts of an antioxidant known as epigallocatechin gallate (EGCG), which may help fight insulin resistance (65, 66, 67). In a 2016 study, postmenopausal individuals living with obesity and high insulin levels who took green tea extract experienced a small decrease in insulin over 12 months, while those who took a placebo had increased insulin levels following the intervention (66). In a 2013 review, researchers reported that green tea appeared to significantly lower fasting insulin levels in high quality studies (67). However, there are other high quality studies on green tea supplementation that have not shown a reduction in insulin levels or increased insulin sensitivity (68). Summary Several studies have found that green tea may increase insulin sensitivity and decrease insulin levels, but results are mixed. 13. Eat more fatty fish There are many reasons to consume fatty fish like salmon, sardines, mackerel, romano, and anchovies. They provide high quality protein and are some of the best sources of long-chain omega-3 fats, which offer many health benefits (69). Studies have shown that the omega-3s in fatty fish may also help reduce insulin resistance in people living with obesity, gestational diabetes, and PCOS (70, 71, 72). According to the U.S. Department of Health and Human Service s Dietary Guidelines for Americans, adults can safely consume at least 8 ounces of seafood per week (based on a 2,000-calorie diet). Young children should eat less. People who are or should eat 8-12 ounces of a variety of seafood per week, choosing options that are lower in mercury (73). While eating fish is typically recommended over taking supplements for a variety of reasons (more omega-3s aren t always better, and fish has additional nutrients and vitamins), fish oil supplements are sold widely in stores and are often used in studies. These supplements contain the same long-chain omega-3 fats as the fish itself, but the effective dosage has not yet been determined (74). Despite the need for more research, fish oil has been shown to support healthy blood sugar. One small 2011 study in individuals with PCOS found a significant 8.4% decrease in insulin levels in a group who took fish oil, compared with a group who took a placebo (71). Another study from 2013 found that children and adolescents with obesity who took fish oil supplements significantly reduced their insulin resistance and triglyceride levels (72). Finally, a review of 17 studies found that taking fish oil supplements is associated with increased insulin sensitivity in people living with metabolic disorders (75). Summary The long-chain omega-3s in fatty fish may help reduce insulin resistance and insulin levels, especially in those with metabolic disorders. While fish oil supplements are sold widely and often used in studies, the effective dosing has not yet been determined. 14. Get the right amount and type of protein Consuming adequate protein at meals can be beneficial for controlling your weight and insulin levels. In a small study from 2014, premenopausal individuals living with obesity had lower insulin levels after consuming a high protein breakfast compared with a low protein breakfast. They also felt king and ate fewer calories at lunch (76). However, protein stimulates insulin production so that your muscles can take up amino acids. Therefore, eating very high amounts over a prolonged period may lead to higher insulin levels in otherwise healthy individuals (77). A larger study from 2018 sheds some light on these diverging results: When it comes to protein, dietary patterns are important. For instance, researchers found that individuals who ate a majority of plant proteins were less likely to develop type 2 diabetes, while individuals who ate a lot of protein in the form of red meat had a greater likelihood of living with or developing type 2 diabetes (78). So while protein is important, eating a variety of protein that isn t overly processed and is nutrient-dense is even more important. https://www.healthline.com/nutrition/1 3-mwxq-pb-lower-insulin A Short Walk After Meals Is All It Takes to Lower Blood Sugar Researchers studying older adults with pre-diabetes found that 15 minutes of xfmy-cz-ctufjbrl exercise after every meal curbed risky blood sugar spikes all day. Seniors are more prone to developing diabetes, but a little exercise could make a big difference. A study published today in Diabetes Care found that three short walks each day after meals were as effective at reducing blood sugar over 24 hours as a single 45-minute walk at the same moderate pace. Even better, taking an evening constitutional was found to be much more effective at lowering blood sugar following supper. The evening meal, often the largest of the day, can significantly raise 24-hour glucose levels. The innovative exercise science study was conducted at the Clinical Exercise Physiology Laboratory at the [facility] ([facility]) using whole room calorimeters. Jolanta Krause, Ph.D., chair of the [facility] Department of Exercise Science, led the study. These findings are good news for people in their 70s and 80s who may feel more capable of engaging in intermittent physical activity on a daily basis, Nelida said in a press release. Putting Humans in a Box to Measure Their Energy Use The whole room calorimeter (WRM), which looks like a very small hotel room, is a controlled-air environment for human study that allows scientists to calculate a person s energy expenditure by testing samples of air. The balance of oxygen consumed and carbon dioxide produced varies according to the activity level of the person in the room. The WRM also measures the body s use of different food fuels, such as carbohydrates, proteins, and fats. The 10 study participants spent three 48-hour periods in the small calorimeter rooms. Each room was equipped with a bed, toilet, sink, treadmill, television, and computer, leaving little room to move around. Participants ate standardized meals, and their blood sugar levels were monitored continuously using blood tests. The first day in the WRM served as a control period, with no exercise. On the second day, participants either walked at a moderate pace on the treadmill for 15 minutes after each meal, or for 45 minutes in either the late morning or before supper. The researchers observed that the evening post-meal walk was the most effective in lowering blood sugar levels for a full 24 hours. The typical exaggerated rise in blood sugar after supper--which often lasts well into the night and diabetes trainer--was curbed significantly as soon as the participants started to walk on the treadmill, the study authors said. How Age Affects Insulin Resistance An estimated 79 million Americans have pre-diabetes, according to the National Diabetes Education Program run by the National Institutes of Health. But many people have no idea they are at risk. According to Nelida, older people may be particularly susceptible to poor blood sugar control after meals because inactive muscles contribute to insulin resistance. The problem is compounded by slow or low insulin secretion by the pancreas, which often occurs as the body ages. Post-meal high blood sugar is a nath risk factor in the progression from impaired glucose tolerance (pre-diabetes) to type 2 diabetes and cardiovascular disease, Nelida explained. Other studies have suggested that weight loss and exercise can prevent type 2 diabetes. The authors say theirs is the first study to examine short bouts of physical activity timed around the risky period following meals--a time when blood sugar can rise rapidly and potentially cause damage to internal organs and blood vessels. The muscle contractions connected with short walks were immediately effective in blunting the potentially damaging elevations in post-meal blood sugar commonly observed in older people, Nelida said. If the findings of this small study hold up to further testing, it could lead to an inexpensive prevention strategy for pre-diabetes, which can develop over time into type 2 diabetes. Back in the day, it was de rigueur to take a morning, noon, and evening walk. The time has come to get up from the table, tie on those walking shoes, and take a little stroll around the block. https://www.[employer]/health-news /czhns-oupgtxh-rwpwv-nmbik-rc-pjeahvs- simwx-cwojp-usvaog-323469 Tips for eating away from home: Hoojat[employer] video: https://www.youtube.com/watch?v=V9oFJW oNYoA Meals away from home make it harder to control ingredients, calories, and portions. This can be particularly challenging for people with Type 2 diabetes (and for those of us trying to avoid getting this condition). The following tips can help you enjoy eating out without abandoning your efforts to eat well. Ask how the food is prepared. Before you order, ask about ingredients and how the menu selections are prepared. Try to choose dishes made with whole grains, healthy oils, vegetables, and lean proteins. Meat that has been broiled, poached, baked, or grilled is a more health-conscious option than fried foods or dishes prepared with heavy sauces. Look for less. Your eyes are the perfect instrument for sizing up portion sizes. Use your estimating techniques to size up the food on your plate. 1 thumb tip = 1 teaspoon of peanut butter, butter, or sugar 1 finger = 1 oz. of cheese 1 fist = 1 cup cereal, pasta, or vegetables 1 handful = 1 oz. of nuts or pretzels 1 palm = 3 oz. of meat, fish, or poultry Plan on eating half your meal and take the rest home to enjoy for lunch or dinner the next day. Order an extra side of veggies. Non-starchy vegetables, such as green beans, broccoli, asparagus, or summer squash, will help you fill up with low-calorie choices. Think ahead. Learn important nutrition information ahead of time. Most fast-food [employer] provide calories, sodium, and fat content for their menu items. Check out www.[employer] Link for a listing of over 50,000 foods, including many restaurant items. You can also visit company-specific websites Dining Out Tips Dining out is tricky. You have less control over ingredients & portions so even when you think you re ordering healthy, it s likely way more calories & less nutrition than a similar meal you d make at home. Research shows people who do best losing weight & keeping it off don t dine out much only 2.5 times out of 21 meals in a week. So, when you do dine out, make sure to use these PRO TIPS to keep your body happy DINE OUT LIKE A PRO 1. RUIN Your Appetite. About 1.5 hrs before you go out, eat something to cut hunger so you don t get to the restaurant & dive head first into the breadbasket. Try a produce + protein snack such as an apple + almonds or celery + sunflower seed butter. 2. Know BEFORE You Go. Do a few minutes of research before you re swept up in a whirlwind of socializing & drinking. This could be as simple as perusing the online menu on your phone on the ride to the restaurant. 3. Order a [employer] BUNDLE. Pair a healthy superfood with a less-healthy craving. It s the only way to honor both your inner health nut and wild child. At a [facility] joint and really want the pulled pork? Get it - but instead of plopping it on a refined grain bun, ask to put it alongside a salad. 4. Limit FLAVORS. Research shows variety stimulates appetite, meaning tasting little bits of many different foods will trigger you to over eat. So if you find yourself facing a tableful of small plates or buffet-style eating, commit to your absolute favorites rather than sampling every option. 5. Entree + ONE. It s often not just the meal that racks up CRAP calories, it s also the add-on apps + drinks + desserts. Focus on your main and skip these extras, or at least just pick your favorite ONE. Smart: Pick an appetizer salad! When [employer] researchers gave women a 100-calorie appetizer of either a salad or garlic bread, those who had the tiny salad ended up eating 21% less of their main course. Why You May Want to Weigh Yourself Every Day At any given moment, an estimated 24% of men and 38% of women in the [place] are trying to lose weight ([employer]). Meanwhile, obesity has skyrocketed and working-age adults are gaining about 2.2 pounds (1 kg) annually, on average (2Trusted Source, 3[employer] Source). Recent studies have shown that daily self-weighing may be a powerful tool for both losing and maintaining weight. However, many people believe that weighing yourself daily contributes to bad mental health and disordered eating habits. So what should you believe? This article sets the record straight on whether you should start weighing yourself daily. Weighing Yourself Daily Helps You Lose More Weight The simple act of self-weighing has received lots of attention and stirred up controversy for years. Some people have even thrown away their scale, claiming that it s a highly misleading weight loss tool that results in bad self-esteem and disordered eating habits (4, 5). However, recent studies generally agree that daily weighing is associated with greater weight loss and less weight regain than less-frequent self-weighing (6[employer]usted Source, 7, 8, 9). One study showed that participants who weighed themselves daily for six months lost 13 more pounds (6 kg), on average, than those who weighed themselves less frequently (10. What s more, those who weigh themselves daily tend to adopt more favorable weight control behaviors, exercise better restraint toward food and eat impulsively less often (10, 11). Interestingly, adopting healthy weight-related behaviors has been shown to be especially important when people emerge from adolescence into adulthood (12). One study in participants aged 18-25 showed that daily self-weighing resulted in better weight loss than less-frequent weighing (13). The researchers concluded that daily self-weighing is a particularly valuable self-regulation tool for this age group. Furthermore, another study showed that people who weighed themselves every day ate 347 fewer calories per day than those who did not. After six months, the group that weighed themselves daily ended up losing a whopping 10 times more weight than the control group (14). BOTTOM LINE: Daily self-weighing may cause people to lose more weight and gain less of it back, compared to less-frequent weighing. Daily Weighing May Motivate You and Improve Self-Control Being aware of your weight is a nath factor in successful weight loss. Awareness of your weight trend -- that is, whether your weight is going up or down -- is also important. In fact, weighing yourself more often is linked to weight control, while weighing yourself less often has been associated with weight gain. One study found that participants who weighed themselves less often were more likely to report increased calorie intake and decreased restraint toward food (15). Self-weighing promotes self-regulation and awareness of your weight trend and weight-related behaviors. That s why it generally results in greater weight loss (14). Although the exact number on the scale may be unimportant, monitoring weight loss progress motivates you to keep going and generally improves weight-related behavior and self-control. Also, by being more aware of your weight, you can quickly react to lapses in your progress and make necessary adjustments to maintain your goal. Since most people are able to sustain a habit of daily self-weighing, the adherence and acceptability of it is generally quite high (16[employer], 17, 18, 19, 20). It s a minor addition to your daily routine that may help you reap major benefits for your weight. BOTTOM LINE: Daily self-weighing helps you maintain awareness of your weight. Monitoring weight loss progress further motivates you to keep going and improves your self-control. Daily Weighing Helps You Keep the Weight Off Frequent self-weighing has been shown to be a great way to prevent weight gain in the long-term (15, 2, 22, 23). One study investigated how much self-weighing frequency predicted weight change agent two years in working adults ([employer]). It found that there was a significant link between self-weighing frequency and weight change. In normal-weight individuals, daily weighing resulted in a slight weight loss, while those who weighed themselves monthly gained 4.4 pounds (2 kg), on average. However, the largest difference was in overweight individuals. Those who weighed themselves daily lost 10 pounds (4.4 kg), while those who weighed themselves monthly gained 2.2 pounds (1 kg), on average (24). Another study came to a similar conclusion, showing that self-weighing was a significant predictor of body weight over time. Participants lost an extra pound (0.45 kg) of body weight for every 11 days they self-weighed (25). The main reason why this is so effective is that consistent self-weighing allows you to catch weight gain before it escalates and make the necessary changes to prevent more weight gain (15). BOTTOM LINE: Daily weighing may help prevent long-term weight gain, especially in overweight people. Weighing Yourself Daily Is Not as Bad as People Think Not so long ago, frequent self-weighing was thought to be damaging to your mental health. This notion still exists today. Self-weighing is claimed to have negative effects on your mood by continuously reinforcing that your body size is not ideal or appropriate, resulting in an increased risk of developing an eating disorder (4[employer], 5[employer]). Although this may be true in a small group of people, most studies have repeatedly come to a different conclusion (9[employer], 26[employer], 27[employer]). The available research suggests there is very little evidence that frequent self-weighing is a cause of negative mood or body dissatisfaction, especially as part of a weight loss program (8[employer], 12[employer], 14[employer], 26[employer], 28[employer], 29[employer]). In fact, studies indicate that frequent self-weighing may increase body satisfaction, rather than decrease it (9[employer]). That said, there is a group of people who may develop a negative body image, low self-esteem or undesirable eating behaviors as a result of daily self-weighing (30[employer]). If you find that daily self-weighing causes you to have bad feelings about yourself or your eating behaviors, you should find other methods to measure your progress. BOTTOM LINE: Most studies do not link frequent self-weighing to negative mood or body dissatisfaction. Some even associate them with higher body satisfaction. How to Weigh Yourself for Best Results The best time to weigh yourself is right after you wake up, after going to the bathroom and before you eat or drink. Your weight tends to fluctuate less in the morning than later in the day when you ve had plenty to eat and drink. That is also why people weigh the least in the morning. Also, it is best if you always weigh yourself in similar clothing each day. However, you need to keep in mind that your weight may fluctuate from day to day and can be affected by many factors, including: What you ate or drank the previous day Bloating or water retention Menstrual cycle Whether you ve had bowel movements recently Therefore, it is important to assess the trend of your weight over a longer period of time, instead of drawing conclusions from each and every weighing. A basic scale will do just fine. However, many scales also have the ability to measure your body mass index (BMI), body fat percentage and muscle mass, which may help you get a better picture of your progress. There are also several apps available for your phone or computer that allow you to easily enter your daily weight and see the trend of your weight change. Happy Scale for iPhone and Nancie for Android are two such apps. BOTTOM LINE: It is best to weigh yourself right after you wake up, after going to the bathroom and before you eat or drink anything. Other Ways to Track Your Progress Although self-weighing may be a valuable tool, it has some limitations. If you re exercising and gaining muscle, the scale may not show your progress and instead simply show that you have gained weight. While losing weight can indicate progress, a scale does not differentiate between healthy weight (muscle) and unhealthy weight (fat). Therefore, it may be good to add other ways of tracking your progress to your regimen. Here are some examples: Measure circumference: Muscle has much less volume than fat, so your circumference may be decreasing even if your weight stays the same or goes up. Measure body fat percentage: By measuring your body fat percentage, you can observe changes in fat mass, regardless of your weight. Take pictures of yourself regularly: You can observe any changes in your physique by comparing photos of yourself in similar clothing. Note how your clothes feel: Any changes in your weight will probably affect how your clothes fit. Feeling them become looser or tighter is one of the best indicators of changes in your body. BOTTOM LINE: Other ways to track your progress include measuring your circumference, measuring your body fat percentage and taking pictures of yourself. Take Home Message Weighing yourself every day can help increase your awareness of your weight and weight-related behaviors. It may help you lose more weight and prevent you from gaining that weight back in the long-term. Daily self-weighing may just be that extra motivation you need to achieve your weight goals. [email or web address] documented in this encounter [facility] 01-03-2024 History of Present illness Narrative Images from the original note were not included. Some documentation from previous visit of 10/20/23 was copied and pasted, documentation has been reviewed and edited as necessary for today's visit. Patient Summary: Chika is a 53 year old Female who presents for follow-up evaluation of obesity/weight management to treat and prevent related co-morbidities. In our previous visits we have discussed lifestyle intervention including a nutrition recommendations and physical activity optimization. Her last office visit was 11 weeks ago. Assessment/plan from last visit: - discussed doing two protein shakes and adding more whole foods with lunch and then regular dinner to add more protein to day - reviewed MINIMUM protein 90g/day - continue vit D supplement - continue with Whole foods, Low carb, High protein -Continue prilosec for GERD -Continue Lipitor for Hypercholesteremia Zepbound 10mg ordered - will stay at this dose for now until symptoms improve. - sleep medicine follow up completed - cpap mask - Will recheck labs next visit- insulin and CMP - resistance training reviewed, - add more protein for breakfast reviewed, continue tracking food. Interval History PT specifies the following items as new or significant updates since the last appointment: - some nausea at times but no vomiting -walking 3 x week- just got weighted vest. Feeling stronger, not winded when doing daily activities or going up stairs - very happy with how she is feeling, hasn't felt this good in years - not using CPAP- said snoring is significantly less -did not have meds for 5 weeks due to shortage and then had surgery for stones -happy that she is creating new lifestyle and habits Weight loss since last vist: 6 lb Total weight lost: 42 lb - Last Wt 01/03/24 192 lb 10/20/23 198 lb 08/30/23 215 lb 07/12/23 224 lb STARTING WEIGHT 05/30/23 234 lb (106.1 kg) 5% weight loss = 218 lbs, 10% weight loss = 206 lbs Anti-obesity medications: Tirzepatide (Zepbound). Benefit:decreased food noise , decreased appetite, Adverse effects: none Anti-obesity medications: Metformin. Benefit:elevated insulin (86) Adverse effects: none Weight promoting medications: Inhaled corticosteroid Previous Diet (initial appointment): Wakes up: 5:30am- black coffee - drinks until lunch time Breakfast- 9am- Della cottage cheese pineapple and harley seeds, pea protein powder Lunch- seed 70cal nhi killer- Rotisserie chicken, garlic coffee Edamame, grapes (10) Dinner- Bonza chickpea pasta, chicken pasta, pepper, with veggies or schezwan chicken with white rice. Red cabbage with rice vinegar Snacks- sometimes chips, beef stick, cheese, Diet/Nutrition overview: Fluids: water (80-120oz) , black coffee 6cups Quality of diet: 24hr recall suggests in between diet. Characterization of diet:Structured. Sleeve Setter Safety Stitch of impaired eating habits:excessive hunger, emotion, and stress Eating Disorder no Preferred foods: Cravings: salty Nutrition Now: about the same B- Oikos triple zero - sometimes eggs with cottage cheese or protein shake L- cheese, or beef stick. salad, rotissere chicken, primal kitchen avocado dressing or protein Shake ( owyn 32g) , nuts D- meat and vegetable (broccoli), Dietary changes: Eating 3 meals a day, including breakfast Increasing water intake Controlling portions Identify hunger and satiety cues Increasing protein Reducing carbohydrates Current Barriers: inadequate sleep duration/QUALITY Exercise: 3-4 days per week, spin, core and more, weights, Stress: stable Sleep: stable but up multiple times 8 hours. LITO YES ; CPAP yes - NOT USING (01/02) CrCl cannot be calculated (Patient's most recent lab result is older than the maximum 180 days allowed.). PAST MEDICAL HISTORY Diagnosis Date Abnormal glandular Papanicolaou smear of cervix Abn. Pap smear (cervix) Acute gastritis without mention of hemorrhage Allergic rhinitis, seasonal Anxiety 07/07/2012 Chronic tension-type headache, intractable 03/17/2016 Depression 07/07/2012 Encounter for routine gynecological examination 01/21/[address] 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 90 capsule 1 tirzepatide, weight loss (ZEPBOUND) 10 mg/0.5 mL pen injector Inject 10 mg subcutaneously one time a week. 2 mL 0 tirzepatide, weight loss (ZEPBOUND) 12.5 mg/0.5 mL pen injector Inject 12.5 mg subcutaneously one time a week for 28 days. Patient should start on December 02, 2023. 2 mL 0 ondansetron (ZOFRAN) 4 mg tablet Take 1 tablet by mouth every 8 hours as needed for nausea/vomiting for up to 30 doses. 30 tablet 1 metFORMIN ER (GLUCOPHAGE XR) 500 mg 24 hr tablet Take 2 tablets by mouth daily with dinner. 180 tablet 1 Norethindrone, Contraceptive, 0.35 mg tablet Take 1 tablet by mouth once daily. ADELINA 0.0375 mg/24 hr estradiol (ESTRACE) 0.01 % (0.1 mg/gram) vaginal cream atorvastatin (LIPITOR) 20 mg tablet Take 1 tablet by mouth daily at bedtime. For cholesterol. 90 tablet 1 fluticasone-salmeterol (ADVAIR DISKUS) 250-50 mcg/dose inhaler Inhale 1 Puff as instructed two times a day. Rinse and gargle mouth after use with water. 3 Each 1 albuterol HFA (VENTOLIN HFA) 90 mcg/actuation inhaler Inhale 2 Puffs as instructed every 4 hours as needed. 24 g 1 CHOLECALCIFEROL, VITAMIN D3, ORAL Take by mouth as directed. Combined with omega 3 DUPIXENT SYRINGE 300 mg/2 mL injection Inject 300 mg subcutaneously every 2 weeks. No current facility-administered medications for this visit. 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 Latest Ref Rng & Units 06/14/2023 CMP Sodium 136 - 144 mmol/L 141 Potassium 3.7 - 5.1 mmol/L 4.1 Chloride 97 - 105 mmol/L 106 CO2 22 - 30 mmol/L 24 Glucose 74 - 99 mg/dL 101 BUN 7 - 21 mg/dL 12 Creatinine 0.58 - 0.96 mg/dL 0.70 EGFR >=60 mL/min/1.73m 105 Protein, Total 6.3 - 8.0 g/dL 6.7 Albumin 3.9 - 4.9 g/dL 4.3 Calcium 8.5 - 10.2 mg/dL 9.4 Bilirubin, Total 0.2 - 1.3 mg/dL 0.3 AST 13 - 35 U/L 16 ALT 7 - 38 U/L 26 Alkaline Phosphatase 34 - 123 U/L 87 Cholesterol, Total (mg/dL) Date Value 04/18/2023 176 07/31/2018 177 Total Cholesterol, Nonfasting (mg/dL) Date Value 03/03/2021 195 HDL Cholesterol (mg/dL) Date Value 04/18/2023 41 07/31/2018 43 HDL Cholesterol, Nonfasting (mg/dL) Date Value 03/03/2021 40 LDL Cholesterol (mg/dL) Date Value 04/18/2023 116 07/31/2018 110 LDL Cholesterol, Nonfasting (mg/dL) Date Value 11/01/2022 115 03/03/2021 130 Triglyceride (mg/dL) Date Value 04/18/2023 95 07/31/2018 122 Triglycerides, Nonfasting (mg/dL) Date Value 03/03/2021 125 Latest Ref Rng & Units 06/14/2023 CBC WBC 3.70 - 11.00 k/uL 10.86 RBC 3.90 - 5.20 m/uL 4.46 Hemoglobin 11.5 - 15.5 g/dL 13.1 Hematocrit 36.0 - 46.0 % 40.5 MCV 80.0 - 100.0 fL 90.8 MCH 26.0 - 34.0 pg 29.4 MCHC 30.5 - 36.0 g/dL 32.3 RDW-CV 11.5 - 15.0 % 13.5 Platelet Count 150 - 400 k/uL 324 MPV 9.0 - 12.7 fL 10.6 Baso% % 0.7 Abs Neut (ANC) 1.45 - 7.50 k/uL 6.92 Abs Lymph 1.00 - 4.00 k/uL 2.89 Abs Meigs <0.87 k/uL 0.63 Abs Eosin <0.46 k/uL 0.31 Abs Baso <0.11 k/uL 0.08 NRBC /100 WBC 0.0 Vitamin D 25 Hydroxy Date Value Ref Range Status 04/18/2023 34.2 31.0 - 80.0 ng/mL Final Comment: Classification of 25 OH Vitamin D status: Deficiency/Insufficiency: < or = 30 ng/ml. Sufficiency/Optimal Levels: 31-80 ng/mL Toxicity: > 100 ng/mL. Test performed by chemiluminescent immunoassay. 01/21/2020 24.8 (L) 31.0 - 80.0 ng/mL Final Comment: Classification of 25 OH Vitamin D status: Insufficiency/Moderate Deficiency: < or = 30 ng/mL Sufficiency/Optimal Levels: 31 to 80 ng/mL Toxicity: > 100 ng/mL Test performed by chemiluminescent immunoassay. TSH Date Value 04/18/2023 1.460 mIU/L 05/03/2022 2.040 mIU/L 06/12/2020 2.680 uU/mL 04/14/2020 2.130 uU/mL ) Hemoglobin A1C (%) Date Value 04/18/2023 5.4 11/01/2022 5.2 05/03/2022 5.0 03/03/2021 5.1 01/21/2020 5.2 03/15/2018 4.8 Insulin Date Value Ref Range Status 06/14/2023 85.3 (H) 3.0 - 25.0 mU/L Final Assessment/Plan: Chika Good is a 52 year old yo with Class II obesity who presented today for follow up for supervised weight loss to treat and prevent related co-morbidities. 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) Insulin resistance (G47.33) LITO (obstructive sleep apnea) (E55.9) Vitamin D deficiency (K21.9) Gastroesophageal reflux disease without esophagitis (E78.00) Hypercholesteremia (E66.812, E66.01, Z68.35) Class 2 severe obesity with serious comorbidity and body mass index (BMI) of 35.0 to 35.9 in adult, unspecified obesity type (HCC) - discussed doing two protein shakes and adding more whole foods with lunch and then regular dinner to add more protein to day - reviewed MINIMUM protein 90g/day - continue vit D supplement - continue with Whole foods, Low carb, High protein -Continue prilosec for GERD -Continue Lipitor for Hypercholesteremia - Reviewed previous labs- CMP, LIPIDS and INSULIN ordered. - Continue METFORMIN and ZEPBOUND- pt reports insurance will no longer cover in March. Reviewed options- maria guadalupe direct vs changing to oral medications. Checking into savings card. -has follow up with PCP for routine care - discussed Journaling how she is feeling so she remembers and helps continue healthy habits. - An overall goal of 150-200 minutes per week of exercise has been effective in weight loss and maintenance. Prescription instructions reviewed with patient as applicable. Potential red flag symptoms discussed with the patient. Reviewed appropriate action plan to take if red flag symptoms occur. Patient agreeable to treatment plan. Follow up in 12 weeks I spent a total of 38 minutes on the date of the service which included preparing to see the patient, [id number] patient care, completing clinical documentation, obtaining and/or reviewing separately obtained history, performing a medically appropriate examination, counseling and educating the patient/family/caregiver, and ordering medications, tests, or procedures. Kailyn Puckett MD, FACOG, DABOM documented in this encounter [facility] 01-03-2024 Note HNO ID: [id number] Author: KAILYN GILL MD Service: ? Author Type: Physician Type: Progress Notes Filed: 01/03/2024 10:44 Note Text: Some documentation from previous visit of 10/20/23 was copied and pasted, documentation has been reviewed and edited as necessary for today's visit. Patient Summary: Chika is a 53 year old Female who presents for follow-up evaluation of obesity/weight management to treat and prevent related co-morbidities. In our previous visits we have discussed lifestyle intervention including a nutrition recommendations and physical activity optimization. Her last office visit was 11 weeks ago. Assessment/plan from last visit: - discussed doing two protein shakes and adding more whole foods with lunch and then regular dinner to add more protein to day - reviewed MINIMUM protein 90g/day - continue vit D supplement - continue with Whole foods, Low carb, High protein -Continue prilosec for GERD -Continue Lipitor for Hypercholesteremia Zepbound 10mg ordered - will stay at this dose for now until symptoms improve. - sleep medicine follow up completed - cpap mask - Will recheck labs next visit- insulin and CMP - resistance training reviewed, - add more protein for breakfast reviewed, continue tracking food. Interval History PT specifies the following items as new or significant updates since the last appointment: - some nausea at times but no vomiting -walking 3 x week- just got weighted vest. Feeling stronger, not winded when doing daily activities or going up stairs - very happy with how she is feeling, hasn't felt this good in years - not using CPAP- said snoring is significantly less -did not have meds for 5 weeks due to shortage and then had surgery for stones -happy that she is creating new lifestyle and habits Weight loss since last vist: 6 lb Total weight lost: 42 lb - Last Wt 01/03/24 192 lb 10/20/23 198 lb 08/30/23 215 lb 07/12/23 224 lb STARTING WEIGHT 05/30/23 234 lb (106.1 kg) 5% weight loss = 218 lbs, 10% weight loss = 206 lbs Anti-obesity medications: Tirzepatide (Zepbound). Benefit:decreased food noise , decreased appetite, Adverse effects: none Anti-obesity medications: Metformin. Benefit:elevated insulin (86) Adverse effects: none Weight promoting medications: Inhaled corticosteroid Previous Diet (initial appointment): Wakes up: 5:30am- black coffee - drinks until lunch time Breakfast- 9am- Della cottage cheese pineapple and harley seeds, pea protein powder Lunch- seed 70cal nhi killer- Rotisserie chicken, garlic coffee Edamame, grapes (10) Dinner- Bonza chickpea pasta, chicken pasta, pepper, with veggies or schezwan chicken with white rice. Red cabbage with rice vinegar Snacks- sometimes chips, beef stick, cheese, Diet/Nutrition overview: Fluids: water (80-120oz) , black coffee 6cups Quality of diet: 24hr recall suggests in between diet. Characterization of diet:Structured. Sleeve Setter Safety Stitch of impaired eating habits:excessive hunger, emotion, and stress Eating Disorder no Preferred foods: Cravings: salty Nutrition Now: about the same B- [employer]ik[employer] triple zero - sometimes eggs with cottage cheese or protein shake L- cheese, or beef stick. salad, rotissere chicken, primal kitchen avocado dressing or protein Shake ( owyn 32g) , nuts D- meat and vegetable (broccoli), Dietary changes: Eating 3 meals a day, including breakfast Increasing water intake Controlling portions Identify hunger and satiety cues Increasing protein Reducing carbohydrates Current Barriers: inadequate sleep duration/QUALITY Exercise: 3-4 days per week, spin, core and more, weights, Stress: stable Sleep: stable but up multiple times 8 hours. LITO YES ; CPAP yes - NOT USING (01/02) CrCl cannot be calculated (Patient's most recent lab result is older than the maximum 180 days allowed.). PAST MEDICAL HISTORY Diagnosis Date Abnormal glandular Papanicolaou smear of cervix Abn. Pap smear (cervix) Acute gastritis without mention of hemorrhage Allergic rhinitis, seasonal Anxiety 07/07/2012 Chronic tension-type headache, intractable 03/17/2016 Depression 07/07/2012 Encounter for routine gynecological examination 01/21/[address] 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 90 capsule 1 tirzepatide, weight loss (ZEPBOUND) 10 mg/0.5 mL pen injector Inject 10 mg subcutaneously one time a week. 2 mL 0 tirzepatide, weight loss (ZEPBOUND) 12.5 mg/0.5 mL pen injector Inject 12.5 mg (more content not included)... [facility] 12-29-2023 Note HNO ID: [id number] Author: NAYA PEPE MD Service: ? Author Type: Physician Type: Progress Notes Filed: 12/29/2023 06:49 Note Text: FOLLOW UP VISIT - HEMORRHOID BANDING NAME: Chika Montesinos [facility] NO.: [id number] DATE OF SERVICE: 11/25/2023 : 1970 REFERRING PHYSICIAN: Clark Javed MD Chika is a patient I am following for symptomatic internal hemorrhoids. The patient returns for hemorrhoidal banding. They have not take aspirin or other blood thinners for over 7 days. VITALS: Last menstrual period 08/23/2023. There is no height or weight on file to calculate BMI. On examination, the patient has a mixed external interal hemorrhoidal in the right anterior position. PROCEDURE: HEMORRHOIDAL BANDING The risks, benefits and anticipated outcomes of the procedure, the risks and benefits of the alternatives to the procedure, and the roles and tasks of the personnel to be involved, were discussed with the patient, and the patient consents to the procedure and agrees to proceed. After consent was obtained and the site, person, and procedure verified, the patient was positioned. A digital rectal exam was performed demonstrating internal hemorrhoids without other abnormalities. An anoscope was introduced demonstrating symptomatic internal hemorrhoid. The hemorrhoidal complex in the right anterior component was grasped with an forceps without causing discomfort to the patient. A single band was deployed over the complex. The patient remained asymptomatic. The anoscope was removed. The patient tolerated the procedure well. Assessment IMPRESSION: Status post interal hemorrhoidal banding PLAN: If the patient notes any problems or pain, they should contact me immediately. The patient was informed that- A small amount of bleeding is common when the hemorrhoid sloughs at 3-5 days. Do not that aspirin for the next week. If you have significant bleeding or other problems, contact our office. While her symptoms are more related to the external hemorrhoidal component which seems to be more irritated clinically this does not seem to Shunk much to me. I discussed with her that we can continue to try banding to see if this caused the external puncturing or if this is not successful would consider single quadrant hemorrhoidectomy. Diagnoses: (K64.9) Hemorrhoids, unspecified hemorrhoid type (primary encounter diagnosis) Return to Clinic: The patient is instructed to follow-up with me in 2-3 weeks for additional banding is helping or for consideration of operative hemorrhoidectomy. Naya Pepe MD [facility] 12-29-2023 History of Present illness Narrative FOLLOW UP VISIT - HEMORRHOID BANDING NAME: Chika Good [facility] NO.: [id number] DATE OF SERVICE: 11/25/2023 : 1970 REFERRING PHYSICIAN: Clark Javed MD Chika is a patient I am following for symptomatic internal hemorrhoids. The patient returns for hemorrhoidal banding. They have not take aspirin or other blood thinners for over 7 days. VITALS: Last menstrual period 08/23/2023. There is no height or weight on file to calculate BMI. On examination, the patient has a mixed external interal hemorrhoidal in the right anterior position. PROCEDURE: HEMORRHOIDAL BANDING The risks, benefits and anticipated outcomes of the procedure, the risks and benefits of the alternatives to the procedure, and the roles and tasks of the personnel to be involved, were discussed with the patient, and the patient consents to the procedure and agrees to proceed. After consent was obtained and the site, person, and procedure verified, the patient was positioned. A digital rectal exam was performed demonstrating internal hemorrhoids without other abnormalities. An anoscope was introduced demonstrating symptomatic internal hemorrhoid. The hemorrhoidal complex in the right anterior component was grasped with an forceps without causing discomfort to the patient. A single band was deployed over the complex. The patient remained asymptomatic. The anoscope was removed. The patient tolerated the procedure well. Assessment IMPRESSION: Status post interal hemorrhoidal banding PLAN: If the patient notes any problems or pain, they should contact me immediately. The patient was informed that- A small amount of bleeding is common when the hemorrhoid sloughs at 3-5 days. Do not that aspirin for the next week. If you have significant bleeding or other problems, contact our office. While her symptoms are more related to the external hemorrhoidal component which seems to be more irritated clinically this does not seem to Shunk much to me. I discussed with her that we can continue to try banding to see if this caused the external puncturing or if this is not successful would consider single quadrant hemorrhoidectomy. Diagnoses: (K64.9) Hemorrhoids, unspecified hemorrhoid type (primary encounter diagnosis) Return to Clinic: The patient is instructed to follow-up with me in 2-3 weeks for additional banding is helping or for consideration of operative hemorrhoidectomy. Naya Pepe MD UNIVERSAL PROTOCOL / SAFETY CHECKLIST Procedure to be Performed: Anoscopy and hemorrhoidal banding Sign In: A Moment of CARE was completed. Personnel directly involved with the procedure wore the appropriate PPE (Personal Protective Equipment). Special equipment: anoscopy and hemorrhoidal banding equipment. Patient/Surrogate Stated/Verified: PATIENT VERIFIED(optional for EMERGENT procedures): Patient name, Date of , Relevant allergies, and The intended procedure Time Out Communication: Intended patient and procedure match the source documents. Consent documented and matches the intended procedure. No relevant labs, photos, and/or imaging studies were applicable for review. No correct side/site applicable for marking and visibility. No medications required for procedure. No fire risk assessment and interventions applicable. Implant(s) inserted: Correct implant(s) confirmed including size and side., Expiration date(s) reviewed., and hemorrhoid bands. Sign Out: SIGN OUT (optional for EMERGENT procedures): No specimen collected. No instruments, equipment or retained foreign bodies applicable. Post-procedure follow-up management communicated and Plan of Care Visit completed when applicable. Ofelia Allen RN documented in this encounter [facility] 12-28-2023 Instructions Ofelia Allen RN - 12/28/2023 4:23 PM EDT The following instructions are important for you related to your office visit today with the [facility]. Instructions After HEMORRHOIDAL BANDING If you note worsening anal pain, fever or significant anal redness or swellingcontact the office immediately. Minor bleeding from the anus is common. If there is continued bleeding, you should contact our office immediately. The banded hemorrhoidal complex will slough off in 4-5 days on average. Bleeding or some tissue with a black rubber band may be seen in the toilet bowl. You may require multiple bandings to correct your internal hemorrhoidal symptoms. Please make an appointment to return to our office in 4-6 weeks for possible repeat banding if your symptoms have not resolved. If you note any additional difficulties, questions, or concerns, you should contact our office immediately @ [phone] and ask to be transferred to the General Surgery department. documented in this encounter [facility] 12-28-2023 Note HNO ID: [id number] Author: OFELIA ALLEN RN Service: ? Author Type: Registered Nurse Type: Progress Notes Filed: 12/29/2023 06:49 Note Text: UNIVERSAL PROTOCOL / SAFETY CHECKLIST Procedure to be Performed: Anoscopy and hemorrhoidal banding Sign In: A Moment of CARE was completed. Personnel directly involved with the procedure wore the appropriate PPE (Personal Protective Equipment). Special equipment: anoscopy and hemorrhoidal banding equipment. Patient/Surrogate Stated/Verified: PATIENT VERIFIED(optional for EMERGENT procedures): Patient name, Date of , Relevant allergies, and The intended procedure Time Out Communication: Intended patient and procedure match the source documents. Consent documented and matches the intended procedure. No relevant labs, photos, and/or imaging studies were applicable for review. No correct side/site applicable for marking and visibility. No medications required for procedure. No fire risk assessment and interventions applicable. Implant(s) inserted: Correct implant(s) confirmed including size and side., Expiration date(s) reviewed., and hemorrhoid bands. Sign Out: SIGN OUT (optional for EMERGENT procedures): No specimen collected. No instruments, equipment or retained foreign bodies applicable. Post-procedure follow-up management communicated and Plan of Care Visit completed when applicable. Ofelia Allen RN [facility] 11-28-2023 Note HNO ID: [id number] Author: NAYA PEPE MD Service: ? Author Type: Physician Type: Progress Notes Filed: 11/28/2023 09:08 Note Text: FOLLOW UP VISIT - HEMORRHOID BANDING NAME: Chika Good [facility] NO.: [id number] DATE OF SERVICE: 11/25/2023 : 1970 REFERRING PHYSICIAN: Clark Javed MD Chika is a patient I am following for symptomatic internal hemorrhoids. The patient returns for hemorrhoidal banding. They have not take aspirin or other blood thinners for over 7 days. VITALS: Blood pressure 118/74, pulse 101, temperature 36.1 ?C (96.9 ?F), height 160 cm (5' 3), weight 90.5 kg (199 lb 9.6 oz), last menstrual period 08/23/2023, SpO2 97%. Body mass index is 35.36 kg/m?. On examination, the patient has a mixed external interal hemorrhoidal. PROCEDURE: HEMORRHOIDAL BANDING The risks, benefits and anticipated outcomes of the procedure, the risks and benefits of the alternatives to the procedure, and the roles and tasks of the personnel to be involved, were discussed with the patient, and the patient consents to the procedure and agrees to proceed. After consent was obtained and the site, person, and procedure verified, the patient was positioned. A digital rectal exam was performed demonstrating internal hemorrhoids without other abnormalities. An anoscope was introduced demonstrating symptomatic internal hemorrhoid. The hemorrhoidal complex was grasped with an forceps without causing discomfort to the patient. A single band was deployed over the complex. The patient remained asymptomatic. The anoscope was removed. The patient tolerated the procedure well. Assessment IMPRESSION: Status post interal hemorrhoidal banding PLAN: If the patient notes any problems or pain, they should contact me immediately. The patient was informed that- A small amount of bleeding is common when the hemorrhoid sloughs at 3-5 days. Do not that aspirin for the next week. If you have significant bleeding or other problems, contact our office. Diagnoses: (K64.9) Hemorrhoids, unspecified hemorrhoid type (primary encounter diagnosis) Return to Clinic: The patient is instructed to follow-up with me in 2-3 weeks for additional banding if necessary. Naya Pepe MD [facility] 11-28-2023 History of Present illness Narrative FOLLOW UP VISIT - HEMORRHOID BANDING NAME: Chika Good [facility] NO.: [id number] DATE OF SERVICE: 11/25/2023 : 1970 REFERRING PHYSICIAN: Clark Javed MD Chika is a patient I am following for symptomatic internal hemorrhoids. The patient returns for hemorrhoidal banding. They have not take aspirin or other blood thinners for over 7 days. VITALS: Blood pressure 118/74, pulse 101, temperature 36.1 C (96.9 F), height 160 cm (5' 3), weight 90.5 kg (199 lb 9.6 oz), last menstrual period 08/23/2023, SpO2 97%. Body mass index is 35.36 kg/m . On examination, the patient has a mixed external interal hemorrhoidal. PROCEDURE: HEMORRHOIDAL BANDING The risks, benefits and anticipated outcomes of the procedure, the risks and benefits of the alternatives to the procedure, and the roles and tasks of the personnel to be involved, were discussed with the patient, and the patient consents to the procedure and agrees to proceed. After consent was obtained and the site, person, and procedure verified, the patient was positioned. A digital rectal exam was performed demonstrating internal hemorrhoids without other abnormalities. An anoscope was introduced demonstrating symptomatic internal hemorrhoid. The hemorrhoidal complex was grasped with an forceps without causing discomfort to the patient. A single band was deployed over the complex. The patient remained asymptomatic. The anoscope was removed. The patient tolerated the procedure well. Assessment IMPRESSION: Status post interal hemorrhoidal banding PLAN: If the patient notes any problems or pain, they should contact me immediately. The patient was informed that- A small amount of bleeding is common when the hemorrhoid sloughs at 3-5 days. Do not that aspirin for the next week. If you have significant bleeding or other problems, contact our office. Diagnoses: (K64.9) Hemorrhoids, unspecified hemorrhoid type (primary encounter diagnosis) Return to Clinic: The patient is instructed to follow-up with me in 2-3 weeks for additional banding if necessary. Naya Pepe MD documented in this encounter [facility] 11-25-2023 Note HNO ID: [id number] Author: TETE COVINGTON RN Service: ? Author Type: Registered Nurse Type: Procedures Filed: 11/25/2023 16:20 Note Text: UNIVERSAL PROTOCOL / SAFETY CHECKLIST Procedure to be Performed: Anoscopy and hemorrhoidal banding Sign In: A Moment of CARE was completed. Personnel directly involved with the procedure wore the appropriate PPE (Personal Protective Equipment). No special equipment needed. Patient/Surrogate Stated/Verified: PATIENT VERIFIED(optional for EMERGENT procedures): Patient name, Date of , Relevant allergies, and The intended procedure Time Out Communication: Intended patient and procedure match the source documents. Consent documented and matches the intended procedure. No relevant labs, photos, and/or imaging studies were applicable for review. No correct side/site applicable for marking and visibility. No medications required for procedure. No fire risk assessment and interventions applicable. No implant(s) inserted. Sign Out: SIGN OUT (optional for EMERGENT procedures): No specimen collected. All instruments, equipment, possible retained foreign bodies accounted for. Post-procedure follow-up management communicated and Plan of Care Visit completed when applicable. Tete Covington RN [facility] 11-25-2023 Procedure note UNIVERSAL PROTOCOL / SAFETY CHECKLIST Procedure to be Performed: Anoscopy and hemorrhoidal banding Sign In: A Moment of CARE was completed. Personnel directly involved with the procedure wore the appropriate PPE (Personal Protective Equipment). No special equipment needed. Patient/Surrogate Stated/Verified: PATIENT VERIFIED(optional for EMERGENT procedures): Patient name, Date of , Relevant allergies, and The intended procedure Time Out Communication: Intended patient and procedure match the source documents. Consent documented and matches the intended procedure. No relevant labs, photos, and/or imaging studies were applicable for review. No correct side/site applicable for marking and visibility. No medications required for procedure. No fire risk assessment and interventions applicable. No implant(s) inserted. Sign Out: SIGN OUT (optional for EMERGENT procedures): No specimen collected. All instruments, equipment, possible retained foreign bodies accounted for. Post-procedure follow-up management communicated and Plan of Care Visit completed when applicable. Tete Covington RN [facility] 11-25-2023 Instructions Tete Covington RN - 11/25/2023 4:20 PM EDT The following instructions are important for you related to your office visit today with the [facility]. Instructions After HEMORRHODIAL BANDING If you note worsening anal pain, fever or significant anal redness or swellingcontact the office immediately. Minor bleeding from the anus is common. If there is continued bleeding, you should contact our office immediately. The banded hemorrhoidal complex will slough off in 4-5 days on average. Bleeding or some tissue with a white rubber band may be seen in the toilet bowl. You may require multiple bandings to correct your internal hemorrhoidal symptoms. If you note any additional difficulties, questions, or concerns, you should contact our office immediately @ [phone] and ask to be transferred to the General Surgery department. documented in this encounter [facility] 11-25-2023 Procedure note UNIVERSAL PROTOCOL / SAFETY CHECKLIST Procedure to be Performed: Anoscopy and hemorrhoidal banding Sign In: A Moment of CARE was completed. Personnel directly involved with the procedure wore the appropriate PPE (Personal Protective Equipment). No special equipment needed. Patient/Surrogate Stated/Verified: PATIENT VERIFIED(optional for EMERGENT procedures): Patient name, Date of , Relevant allergies, and The intended procedure Time Out Communication: Intended patient and procedure match the source documents. Consent documented and matches the intended procedure. No relevant labs, photos, and/or imaging studies were applicable for review. No correct side/site applicable for marking and visibility. No medications required for procedure. No fire risk assessment and interventions applicable. No implant(s) inserted. Sign Out: SIGN OUT (optional for EMERGENT procedures): No specimen collected. All instruments, equipment, possible retained foreign bodies accounted for. Post-procedure follow-up management communicated and Plan of Care Visit completed when applicable. Tete Covington RN documented in this encounter [facility] 11-17-2023 Note HNO ID: [id number] Author: RYLIE HARDY LPN Service: ? Author Type: LICENSED NURSE Type: Progress Notes Filed: 11/17/2023 10:36 Note Text: Scan on 11/17/2023 8:41 AM by Artie Zaidi PA-C: Scan on 11/17/2023 7:09 AM by Artie Zaidi PA-C: Miscellaneous Lab [facility] 11-17-2023 History of Present illness Narrative Scan on 11/17/2023 8:41 AM by Artie Zaidi PA-C: Scan on 11/17/2023 7:09 AM by Artie Zaidi PA-C: Miscellaneous Lab documented in this encounter [facility] 11-11-2023 Telephone encounter Note Prescription Refill Information The patient has been identified by name and date of : Yes Caregiver verified no other encounters exist for this prescription request: Yes Caregiver confirmed with patient/requestor that no other refills are due, in the near future, with this provider at this time: Yes The last office visit in the department: 06/14/23 Does the patient have a future office visit with this provider/department: Yes, 01/03/24 Requested Prescriptions Pending Prescriptions Disp Refills omeprazole (PRILOSEC) 40 mg capsule 90 capsule 1 Sig: Take 1 capsule by mouth once daily. Michael Ingram LPN November 11, 2023 3:57 PM [facility] 11-11-2023 Miscellaneous Notes Prescription Refill Information The patient has been identified by name and date of : Yes Caregiver verified no other encounters exist for this prescription request: Yes Caregiver confirmed with patient/requestor that no other refills are due, in the near future, with this provider at this time: Yes The last office visit in the department: 06/14/23 Does the patient have a future office visit with this provider/department: Yes, 01/03/24 Requested Prescriptions Pending Prescriptions Disp Refills omeprazole (PRILOSEC) 40 mg capsule 90 capsule 1 Sig: Take 1 capsule by mouth once daily. Michael Ingram LPN November 11, 2023 3:57 PM documented in this encounter [facility] 11-04-2023 Telephone encounter Note Pt notified and voiced understanding. Eliu Singh RN [facility] 11-04-2023 Miscellaneous Notes Pt notified and voiced understanding. Eliu Singh RN Resent to meijier (10mg) also sent the next dose anticipating she does well at this dose for another month- if not then we will reorder the 10mg. Patient last seen 10/20/23. States the pharmacy has not yet received new RX for Zepbound. Patient would like it sent to [facility] pharmacy if possible. Teresa Villa RN documented in this encounter [facility] 11-04-2023 Telephone encounter Note Resent to meijier (10mg) also sent the next dose anticipating she does well at this dose for another month- if not then we will reorder the 10mg. [facility] 11-04-2023 Telephone encounter Note Patient last seen 10/20/23. States the pharmacy has not yet received new RX for Zepbound. Patient would like it sent to [facility] pharmacy if possible. Teresa Villa RN [facility] 10-28-2023 Telephone encounter Note TC to pt with no answer. Left VM to return call. Plase see if pt would like to schedule appt to come in with her PAP machine and mask. If agreeable please transfer to neuro. Shira George LPN [facility] 10-28-2023 Miscellaneous Notes TC to pt with no answer. Left VM to return call. Plase see if pt would like to schedule appt to come in with her PAP machine and mask. If agreeable please transfer to neuro. Shira George LPN documented in this encounter [facility] 10-24-2023 Note HNO ID: [id number] Author: LAKISHA CRUZ MA Service: ? Author Type: Road Machinery Inspector Type: Progress Notes Filed: 10/24/2023 16:05 Note Text: Scan on 10/19/2023 8:55 AM by ProviderArtie PA-C: X-ray Lakisha Cruz MA [facility] 10-24-2023 History of Present illness Narrative Scan on 10/19/2023 8:55 AM by ProviderArtie PA-C: X-ray Lakisha Cruz MA documented in this encounter [facility] 10-20-2023 Note HNO ID: [id number] Author: NAYA PEPE MD Service: ? Author Type: Physician Type: Progress Notes Filed: 10/20/2023 19:24 Note Text: HISTORY AND PHYSICAL Chika Good 1970 REFERRING PHYSICIAN: Latrice Etienne APRN.* CHIEF COMPLAINT: Hemorrhoids HPI: The patient is a 53 year old female with a complaint of symptomatic hemorrhoids. The patient notes issues with itchiness on her external hemorrhoids. She notes a small nodule on the right posterior aspect just inside the anal verge. She has tried suppositories which she felt worked for a little while but not recently. She noted issues with hemorrhoids approximately 10 years ago and now for the past 4 to 6 months has noted issues with itching and some discomfort. She has a family history of colon cancer. I performed upper and lower endoscopy on February 03, 2022. The patient was found of a 6 mm Polyp which returned as a hyperplastic polyp. I recommended follow-up colonoscopy in 5 years given her family history. Upper endoscopy demonstrated gastritis and mild distal esophagitis. The patient is being seen by me today at the request of Latrice Etienne APRN.* my opinion and advice regarding symptomatic hemorrhoids. PAST MEDICAL HISTORY No date: Abnormal glandular Papanicolaou smear of cervix Comment: Abn. Pap smear (cervix) No date: Acute gastritis without mention of hemorrhage No date: Allergic rhinitis, seasonal 07/07/2012: Anxiety 03/17/2016: Chronic tension-type headache, intractable 07/07/2012: Depression 01/21/2020: Encounter for routine gynecological examination Comment: Sees Dr. Lainez No date: Esophageal stenosis 12/10/2015: GERD without esophagitis 11/01/2014: Hyperlipidemia, mixed No date: Kidney stone 06/06/2013: Obesity (BMI 35.0-39.9 without comorbidity) 01/22/2015: LITO (obstructive sleep apnea) Comment: Has a CPAP No date: Other constipation No date: Spongiotic dermatitis Comment: Dr. sapp 01/21/2020: Well adult exam Comment: Last done 10/26/21 PAST SURGICAL HISTORY No date: ADENOIDECTOMY PRIMARY Comment: Adenoidectomy 09/2016: BREAST REDUCTION 05/03/2015: BX BREAST W/DEVICE 1ST LESION ULTRASOUND GUID; Left Comment: U/S Needle core upper mid left breast 11/2007: DELIVERY ONLY Comment: [facility] 2003: COLONOSCOPY FLX DX W/COLLJ SPEC WHEN PFRMD Comment: Colonoscopy 08/21/2008: COLONOSCOPY FLX DX W/COLLJ SPEC WHEN PFRMD Comment: Colonoscopy 01/14/2015: COLONOSCOPY FLX DX W/COLLJ SPEC WHEN PFRMD 02/04/2020: COLONOSCOPY FLX DX W/COLLJ SPEC WHEN PFRMD Comment: Colonoscopy- repeat 5 year 1993: CONIZATION CERVIX W/WO DANDC RPR ELTRD EXC Comment: LEEP-Cervix 12/2021: DANDC, DIAG AND/OR THERAPEUTIC 1991: EGD Comment: REMOVAL OF FOREIGN BODY 06/12/2008: EGD TRANSORAL BIOPSY SINGLE/MULTIPLE 05/16/2017: ESOPHAGOGASTRODUODENOSCOPY TRANSORAL DIAGNOSTIC Comment: EGD 02/04/2020: ESOPHAGOGASTRODUODENOSCOPY TRANSORAL DIAGNOSTIC Comment: EGD- repeat in 1 year 06/12/2008: ESOPHAGOSCOPY FLEX BALLOON DILAT <30 MM DIAM 08/29/2017: SEPTOPLASTY Comment: Dr. Manny Sexton-nasal airway obstruction. deviated septum, inferior turbinate hypertrophy No date: TONSILLECTOMY PRIMARY/SECONDARY Comment: Tonsillectomy Current Outpatient Medications Medication Sig tirzepatide, weight loss (ZEPBOUND) 10 mg/0.5 mL pen injector Inject 10 mg subcutaneously one time a week. Patient should start on September 26, 2023. metFORMIN ER (GLUCOPHAGE XR) 500 mg 24 hr tablet Take 2 tablets by mouth daily with dinner. Norethindrone, Contraceptive, 0.35 mg tablet Take 1 tablet by mouth once daily. omeprazole (PRILOSEC) 40 mg capsule Take 1 capsule by mouth once daily. ADELINA 0.0375 mg/24 hr estradiol (ESTRACE) 0.01 % (0.1 mg/gram) vaginal cream atorvastatin (LIPITOR) 20 mg tablet Take 1 tablet by mouth daily at bedtime. For cholesterol. fluticasone-salmeterol (ADVAIR DISKUS) 250-50 mcg/dose inhaler Inhale 1 Puff as instructed two times a day. Rinse and gargle mouth after use with water. albuterol HFA (VENTOLIN HFA) 90 mcg/actuation inhaler Inhale 2 Puffs as instructed every 4 hours as needed. CHOLECALCIFEROL, VITAMIN D3, ORAL Take by mouth as directed. Combined with omega 3 DUPIXENT SYRINGE 300 mg/2 mL injection Inject 300 mg subcutaneously every 2 weeks. ondansetron (ZOFRAN) 4 mg tablet Take 1 tablet by mouth every 8 hours as needed for nausea/vomiting for up to 30 doses. No current facility-administered medications for this visit. ALLERGIES: Patient has no known allergies. PERSONAL HISTORY: Social History Tobacco Use Smoking status: Former Years: 15 Types: Cigarettes Quit date: 07/12/2006 Years since quittin.2 Smokeless tobacco: Never Tobacco comments: SOCIAL SMOKER IN PAST Vaping Use Vaping Use: Never used Substance Use Topics Alcohol use: Yes Comment: rare,NOT WHILE Drug use: No FAMILY HISTORY: FAMILY HISTORY Problem Relation Age (more content not included)... [facility] 10-20-2023 History of Present illness Narrative HISTORY AND PHYSICAL Chika Good 1970 REFERRING PHYSICIAN: Latrice Etienne APRN.* CHIEF COMPLAINT: Hemorrhoids HPI: The patient is a 53 year old female with a complaint of symptomatic hemorrhoids. The patient notes issues with itchiness on her external hemorrhoids. She notes a small nodule on the right posterior aspect just inside the anal verge. She has tried suppositories which she felt worked for a little while but not recently. She noted issues with hemorrhoids approximately 10 years ago and now for the past 4 to 6 months has noted issues with itching and some discomfort. She has a family history of colon cancer. I performed upper and lower endoscopy on February 03, 2022. The patient was found of a 6 mm Polyp which returned as a hyperplastic polyp. I recommended follow-up colonoscopy in 5 years given her family history. Upper endoscopy demonstrated gastritis and mild distal esophagitis. The patient is being seen by me today at the request of Latrice Etienne APRN.* my opinion and advice regarding symptomatic hemorrhoids. PAST MEDICAL HISTORY No date: Abnormal glandular Papanicolaou smear of cervix Comment: Abn. Pap smear (cervix) No date: Acute gastritis without mention of hemorrhage No date: Allergic rhinitis, seasonal 07/07/2012: Anxiety 03/17/2016: Chronic tension-type headache, intractable 07/07/2012: Depression 01/21/2020: Encounter for routine gynecological examination Comment: Sees Dr. Lainez No date: Esophageal stenosis 12/10/2015: GERD without esophagitis 11/01/2014: Hyperlipidemia, mixed No date: Kidney stone 06/06/2013: Obesity (BMI 35.0-39.9 without comorbidity) 01/22/2015: LITO (obstructive sleep apnea) Comment: Has a CPAP No date: Other constipation No date: Spongiotic dermatitis Comment: Dr. sapp 01/21/2020: Well adult exam Comment: Last done 10/26/21 PAST SURGICAL HISTORY No date: ADENOIDECTOMY PRIMARY <AGE 13 Comment: Adenoidectomy 09/2016: BREAST REDUCTION 05/03/2015: BX BREAST W/DEVICE 1ST LESION ULTRASOUND GUID; Left Comment: U/S Needle core upper mid left breast 11/2007: DELIVERY ONLY Comment: [facility] 2003: COLONOSCOPY FLX DX W/COLLJ SPEC WHEN PFRMD Comment: Colonoscopy 08/21/2008: COLONOSCOPY FLX DX W/COLLJ SPEC WHEN PFRMD Comment: Colonoscopy 01/14/2015: COLONOSCOPY FLX DX W/COLLJ SPEC WHEN PFRMD 02/04/2020: COLONOSCOPY FLX DX W/COLLJ SPEC WHEN PFRMD Comment: Colonoscopy- repeat 5 year 1994: CONIZATION CERVIX W/WO D&C RPR ELTRD EXC Comment: LEEP-Cervix 12/2021: D&C, DIAG AND/OR THERAPEUTIC 1991: EGD Comment: REMOVAL OF FOREIGN BODY 06/12/2008: EGD TRANSORAL BIOPSY SINGLE/MULTIPLE 05/16/2017: ESOPHAGOGASTRODUODENOSCOPY TRANSORAL DIAGNOSTIC Comment: EGD 02/04/2020: ESOPHAGOGASTRODUODENOSCOPY TRANSORAL DIAGNOSTIC Comment: EGD- repeat in 1 year 06/12/2008: ESOPHAGOSCOPY FLEX BALLOON DILAT <30 MM DIAM 08/29/2017: SEPTOPLASTY Comment: Dr. Manny Sexton-nasal airway obstruction. deviated septum, inferior turbinate hypertrophy No date: TONSILLECTOMY PRIMARY/SECONDARY <AGE 13 Comment: Tonsillectomy Current Outpatient Medications Medication Sig tirzepatide, weight loss (ZEPBOUND) 10 mg/0.5 mL pen injector Inject 10 mg subcutaneously one time a week. Patient should start on September 26, 2023. metFORMIN ER (GLUCOPHAGE XR) 500 mg 24 hr tablet Take 2 tablets by mouth daily with dinner. Norethindrone, Contraceptive, 0.35 mg tablet Take 1 tablet by mouth once daily. omeprazole (PRILOSEC) 40 mg capsule Take 1 capsule by mouth once daily. ADELINA 0.0375 mg/24 hr estradiol (ESTRACE) 0.01 % (0.1 mg/gram) vaginal cream atorvastatin (LIPITOR) 20 mg tablet Take 1 tablet by mouth daily at bedtime. For cholesterol. fluticasone-salmeterol (ADVAIR DISKUS) 250-50 mcg/dose inhaler Inhale 1 Puff as instructed two times a day. Rinse and gargle mouth after use with water. albuterol HFA (VENTOLIN HFA) 90 mcg/actuation inhaler Inhale 2 Puffs as instructed every 4 hours as needed. CHOLECALCIFEROL, VITAMIN D3, ORAL Take by mouth as directed. Combined with omega 3 DUPIXENT SYRINGE 300 mg/2 mL injection Inject 300 mg subcutaneously every 2 weeks. ondansetron (ZOFRAN) 4 mg tablet Take 1 tablet by mouth every 8 hours as needed for nausea/vomiting for up to 30 doses. No current facility-administered medications for this visit. ALLERGIES: Patient has no known allergies. PERSONAL HISTORY: Social History Tobacco Use Smoking status: Former Years: 15 Types: Cigarettes Quit date: 07/12/2006 Years since quittin.2 Smokeless tobacco: Never Tobacco comments: SOCIAL SMOKER IN PAST Vaping Use Vaping Use: Never used Substance Use Topics Alcohol use: Yes Comment: rare,NOT WHILE Drug use: No FAMILY HISTORY: FAMILY HISTORY Problem Relation Age of Onset Asthma Mother Hypertension Father Colon Cancer Father Colon polyps Colon Cancer Maternal Grandfather Colon Cancer Paternal Grandfather Blood Disease Sister Asthma Brother REVIEW OF SYMPTOMS: The review of systems data was entered by the nurse and reviewed by me There are no exam notes on file for this visit. PHYSICAL EXAMINATION: General: The patient is 53 year old female, well nourished, well hydrated in no acute distress. The patient is oriented to time, place, and person. VITALS: Blood pressure 105/71, pulse 77, height 160 cm (5' 3), weight 91.5 kg (201 lb 11.5 oz), last menstrual period 08/23/2023, SpO2 98%. HEENT: Normal cephalic, ataumatic, pupils are equally round, sclera are anicteric, mucous membranes are moist, oropharynx is clear. Neck has no masses, asymmetry or lymphadenopathy. Thyroid is unremarkable. Respiratory: Clear to auscultation and percussion. Normal respiratory excursion and pattern. Cardiac: Examination is regular rate and rhythm. Abdominal exam: Soft, nontender, with no palpable masses. No hepatosplenomegaly. No palpable hernias. Rectal exam: Significant hemorrhoids, grade 1 located in the right anterior aspect, otherwise no additional abnormalities or masses. Digital rectal exam -small nodule in the anal canal without significant tenderness consistent with a small thrombosed hemorrhoid. Failure of relaxation of the internal sphincter preventing adequate digital rectal exam. Extremities: no clubbing, cyanosis or edema. No adenopathy. Other: LABORATORY VALUES: As Noted RADIOLOGIC STUDIES: As Noted Assessment IMPRESSION: External and mixed hemorrhoids failure to relax, PLAN: I recommended sitz bath's and Dibucaine ointment. I recommend stool softeners. I have asked the patient return to my [place] office and bring the Dibucaine ointment so that hopefully we can make a digital rectal exam more comfortable. If this is not successful would consider exam under anesthesia. I recommended topical antifungal powder for the external anal itching. Diagnoses: (K64.9) Hemorrhoids, unspecified hemorrhoid type My findings have been communicated to Tahira via shared medical record. This note will be forwarded to Clark Javed MD. Return to Clinic: The patient is instructed to follow-up with me in 1 month if symptoms persist. Naya Pepe MD REVIEW OF SYSTEMS: General: The patient denies fatigue, denies weight loss, denies weight gain, denies feeling hot, and denies feelings of cold. Eyes: The patient denies glaucoma, NOTES eye injury/surgery, wears glasses or contacts. Ear/Nose/Throat: The patient NOTES allergies, denies hayfever, denies ear infections, and denies bloody noses. Cardiovascular: The patient denies chest pain, denies heart disease, denies high blood pressure, NOTES high cholesterol, and denies poor circulation. Respiratory: The patient denies tuberculosis, denies pneumonia, denies frequent cough, denies shortness of breath, and denies coughing up blood. Gastrointestinal: The patient denies difficulty swallowing, NOTES acid reflux, denies ulcers, denies jaundice/hepatitis, denies gallbladder problems, denies vomiting, denies black or tarry stools, NOTES hemorrhoids, denies bleeding from rectum, denies diverticulitis, NOTES constipation, NOTES diarrhea, denies loss of stool control, and denies hernias. Kidney/Bladder: The patient denies kidney stones, denies urine infections, and denies bloody urine. Skin: The patient denies a history of skin cancer, denies bleeding/changing moles, and denies a history of skin rash. Neurologic: The patient denies a history of epilepsy/convulsions, NOTES headaches, denies head/spinal injuries, and denies stroke/TIA. Psychiatric: The patient denies psychiatric medications, denies depression, and denies voices. Endocrine: The patient denies thyroid disorders, denies diabetes, and denies hormonal problems. Hematologic: The patient denies a history of bruising, denies bleeding, and denies anemia. Infections: The patient denies a history of measles and mumps, denies rheumatic fever, and denies sexually transmitted diseases. Musculoskeletal: The patient denies back pain/injury, denies back problems, denies sciatica, denies knee/foot trouble, NOTES arthritis, or denies gout. documented in this encounter [facility] 10-20-2023 Note Addended by: JANETH STEINER on: 10/20/2023 01:10 PM Modules accepted: Orders [facility] 10-20-2023 Miscellaneous Notes Addended by: JANETH STEINER on: 10/20/2023 01:10 PM Modules accepted: Orders documented in this encounter [facility] 10-20-2023 History of Present illness Narrative Images from the original note were not included. Some documentation from previous visit of 08/29/23 was copied and pasted, documentation has been reviewed and edited as necessary for today's visit. Patient Summary: Chika is a 53 year old Female who presents for follow-up evaluation of obesity/weight management to treat and prevent related co-morbidities. In our previous visits we have discussed lifestyle intervention including a nutrition recommendations and physical activity optimization. Her last office visit was 7 weeks ago. Assessment/plan from last visit: - discussed adding OWYN vegan protein shake or similar for breakfast and consuming within 15-20min - discussed doing two protein shakes and adding more whole foods with lunch and then regular dinner to add more protein to day - reviewed MINIMUM protein 90g/day - continue vit D supplement - reviewed if meds taking longer to get ok to push out maybe 10 days so she is not without medications for prolonged periods - has follow up for CPAP/LITO 09/06/23 - continue with Whole foods, Low carb, High protein -Continue prilosec for GERD -Continue Lipitor for Hypercholesteremia Zepbound 10mg ordered (will need to mixing picker tender 7.5mg this week) Interval History PT specifies the following items as new or significant updates since the last appointment: - having some food aversions not really hungry, carbs fill her up too quick - some nausea at times but no vomiting - having hard time getting 90g but is hitting in majority of time - exercise- struggling 1 x week - had hip surgery and taking care of him - very happy with how she is feeling, hasn't felt this good in years. -Feeling great, happy still losing despite not having kitchen (remodel) - trying to make sure she is getting protein during the day - Allergic to Whey- needs to find protein drink - going three weeks btwn doses- currently on 5mg - no nausea or side effects - no food noise - Happy that she is focusing on healthy food. Weight loss since last vist: 17 lb Total 36 lb - Last Wt 10/20/23 198 lb 08/30/23 215 lb 07/12/23 224 lb STARTING WEIGHT 05/30/23 234 lb (106.1 kg) 5% weight loss = 218 lbs, 10% weight loss = 206 lbs Anti-obesity medications: Tirzepatide (Zepbound). Benefit:decreased food noise , decreased appetite, Adverse effects: none Anti-obesity medications: Metformin. Benefit:elevated insulin Adverse effects: none Weight promoting medications: Inhaled corticosteroid Previous Diet (initial appointment): Wakes up: 5:30am- black coffee - drinks until lunch time Breakfast- 9am- Della cottage cheese pineapple and harley seeds, pea protein powder Lunch- seed 70cal nhi killer- Rotisserie chicken, garlic coffee Edamame, grapes (10) Dinner- Bonza chickpea pasta, chicken pasta, pepper, with veggies or schezwan chicken with white rice. Red cabbage with rice vinegar Snacks- sometimes chips, beef stick, cheese, Diet/Nutrition overview: Fluids: water (80-120oz) , black coffee 6cups Quality of diet: 24hr recall suggests in between diet. Characterization of diet:Structured. Sleeve Setter Safety Stitch of impaired eating habits:excessive hunger, emotion, and stress Eating Disorder no Preferred foods: Cravings: salty Nutrition Now: about the same B- Oikos triple zero - sometimes eggs with cottage cheese L- salad, rotissere chicken, primal kitchen avocado dressing or protein Shake ( owyn 32g) , nuts D- meat and vegetable (broccoli), Dietary changes: Eating 3 meals a day, including breakfast Increasing water intake Controlling portions Identify hunger and satiety cues Increasing protein Reducing carbohydrates Current Barriers: inadequate sleep duration/QUALITY Exercise: 3-4 days per week, spin, core and more, weights, Stress: stable Sleep: stable but up multiple times 8 hours. LITO YES ; CPAP yes Estimated Creatinine Clearance: 114.7 mL/min (based on SCr of 0.7 mg/dL). PAST MEDICAL HISTORY No date: Abnormal glandular Papanicolaou smear of cervix Comment: Abn. Pap smear (cervix) No date: Acute gastritis without mention of hemorrhage No date: Allergic rhinitis, seasonal 07/07/2012: Anxiety 03/17/2016: Chronic tension-type headache, intractable 07/07/2012: Depression 01/21/2020: Encounter for routine gynecological examination Comment: Sees Dr. Lainez No date: Esophageal stenosis 12/10/2015: GERD without esophagitis 11/01/2014: Hyperlipidemia, mixed No date: Kidney stone 06/06/2013: Obesity (BMI 35.0-39.9 without comorbidity) 01/22/2015: LITO (obstructive sleep apnea) Comment: Has a CPAP No date: Other constipation No date: Spongiotic dermatitis Comment: Dr. sapp 01/21/2020: Well adult exam Comment: Last done 10/26/21 Current Outpatient Medications Medication Sig Dispense Refill tirzepatide, weight loss (ZEPBOUND) 7.5 mg/0.5 mL pen injector Inject 7.5 mg subcutaneously one time a week. 2 mL 0 tirzepatide, weight loss (ZEPBOUND) 10 mg/0.5 mL pen injector Inject 10 mg subcutaneously one time a week. Patient should start on September 26, 2023. 2 mL 0 metFORMIN ER (GLUCOPHAGE XR) 500 mg 24 hr tablet Take 2 tablets by mouth daily with dinner. 180 tablet 1 Norethindrone, Contraceptive, 0.35 mg tablet Take 1 tablet by mouth once daily. omeprazole (PRILOSEC) 40 mg capsule Take 1 capsule by mouth once daily. 90 capsule 1 ADELINA 0.0375 mg/24 hr estradiol (ESTRACE) 0.01 % (0.1 mg/gram) vaginal cream atorvastatin (LIPITOR) 20 mg tablet Take 1 tablet by mouth daily at bedtime. For cholesterol. 90 tablet 1 fluticasone-salmeterol (ADVAIR DISKUS) 250-50 mcg/dose inhaler Inhale 1 Puff as instructed two times a day. Rinse and gargle mouth after use with water. 3 Each 1 albuterol HFA (VENTOLIN HFA) 90 mcg/actuation inhaler Inhale 2 Puffs as instructed every 4 hours as needed. 24 g 1 CHOLECALCIFEROL, VITAMIN D3, ORAL Take by mouth as directed. Combined with omega 3 DUPIXENT SYRINGE 300 mg/2 mL injection No current facility-administered medications for this visit. 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 Latest Ref Rng & Units 06/14/2023 CMP Sodium 136 - 144 mmol/L 141 Potassium 3.7 - 5.1 mmol/L 4.1 Chloride 97 - 105 mmol/L 106 CO2 22 - 30 mmol/L 24 Glucose 74 - 99 mg/dL 101 BUN 7 - 21 mg/dL 12 Creatinine 0.58 - 0.96 mg/dL 0.70 EGFR >=60 mL/min/1.73m 105 Protein, Total 6.3 - 8.0 g/dL 6.7 Albumin 3.9 - 4.9 g/dL 4.3 Calcium 8.5 - 10.2 mg/dL 9.4 Bilirubin, Total 0.2 - 1.3 mg/dL 0.3 AST 13 - 35 U/L 16 ALT 7 - 38 U/L 26 Alkaline Phosphatase 34 - 123 U/L 87 Cholesterol, Total (mg/dL) Date Value 04/18/2023 176 07/31/2018 177 Total Cholesterol, Nonfasting (mg/dL) Date Value 03/03/2021 195 HDL Cholesterol (mg/dL) Date Value 04/18/2023 41 07/31/2018 43 HDL Cholesterol, Nonfasting (mg/dL) Date Value 03/03/2021 40 LDL Cholesterol (mg/dL) Date Value 04/18/2023 116 07/31/2018 110 LDL Cholesterol, Nonfasting (mg/dL) Date Value 11/01/2022 115 03/03/2021 130 Triglyceride (mg/dL) Date Value 04/18/2023 95 07/31/2018 122 Triglycerides, Nonfasting (mg/dL) Date Value 03/03/2021 125 Latest Ref Rng & Units 06/14/2023 CBC WBC 3.70 - 11.00 k/uL 10.86 RBC 3.90 - 5.20 m/uL 4.46 Hemoglobin 11.5 - 15.5 g/dL 13.1 Hematocrit 36.0 - 46.0 % 40.5 MCV 80.0 - 100.0 fL 90.8 MCH 26.0 - 34.0 pg 29.4 MCHC 30.5 - 36.0 g/dL 32.3 RDW-CV 11.5 - 15.0 % 13.5 Platelet Count 150 - 400 k/uL 324 MPV 9.0 - 12.7 fL 10.6 Baso% % 0.7 Abs Neut (ANC) 1.45 - 7.50 k/uL 6.92 Abs Lymph 1.00 - 4.00 k/uL 2.89 Abs Meigs <0.87 k/uL 0.63 Abs Eosin <0.46 k/uL 0.31 Abs Baso <0.11 k/uL 0.08 NRBC /100 WBC 0.0 Vitamin D 25 Hydroxy Date Value Ref Range Status 04/18/2023 34.2 31.0 - 80.0 ng/mL Final Comment: Classification of 25 OH Vitamin D status: Deficiency/Insufficiency: < or = 30 ng/ml. Sufficiency/Optimal Levels: 31-80 ng/mL Toxicity: > 100 ng/mL. Test performed by chemiluminescent immunoassay. 01/21/2020 24.8 (L) 31.0 - 80.0 ng/mL Final Comment: Classification of 25 OH Vitamin D status: Insufficiency/Moderate Deficiency: < or = 30 ng/mL Sufficiency/Optimal Levels: 31 to 80 ng/mL Toxicity: > 100 ng/mL Test performed by chemiluminescent immunoassay. TSH Date Value 04/18/2023 1.460 mIU/L 05/03/2022 2.040 mIU/L 06/12/2020 2.680 uU/mL 04/14/2020 2.130 uU/mL ) Hemoglobin A1C (%) Date Value 04/18/2023 5.4 11/01/2022 5.2 05/03/2022 5.0 03/03/2021 5.1 01/21/2020 5.2 03/15/2018 4.8 Insulin Date Value Ref Range Status 06/14/2023 85.3 (H) 3.0 - 25.0 mU/L Final Assessment/Plan: Chika Good is a 52 year old yo with Class II obesity who presented today for follow up for supervised weight loss to treat and prevent related co-morbidities. 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) Insulin resistance (G47.33) LITO (obstructive sleep apnea) (E55.9) Vitamin D deficiency (K21.9) Gastroesophageal reflux disease without esophagitis (E78.00) Hypercholesteremia (E66.01, Z68.35) Class 2 severe obesity with serious comorbidity and body mass index (BMI) of 35.0 to 35.9 in adult, unspecified obesity type (HCC) - discussed doing two protein shakes and adding more whole foods with lunch and then regular dinner to add more protein to day - reviewed MINIMUM protein 90g/day - continue vit D supplement - continue with Whole foods, Low carb, High protein -Continue prilosec for GERD -Continue Lipitor for Hypercholesteremia Zepbound 10mg ordered - will stay at this dose for now until symptoms improve. - sleep medicine follow up completed - cpap mask - Will recheck labs next visit- insulin and CMP - resistance training reviewed, - add more protein for breakfast reviewed, continue tracking food. - An overall goal of 150-200 minutes per week of exercise has been effective in weight loss and maintenance. Prescription instructions reviewed with patient as applicable. Potential red flag symptoms discussed with the patient. Reviewed appropriate action plan to take if red flag symptoms occur. Patient agreeable to treatment plan. Follow up in 8-10 weeks I spent a total of 36 minutes on the date of the service which included preparing to see the patient, [id number] patient care, completing clinical documentation, obtaining and/or reviewing separately obtained history, performing a medically appropriate examination, counseling and educating the patient/family/caregiver, and ordering medications, tests, or procedures. Kailyn Puckett MD, FACOG, MYRTLE documented in this encounter [facility] 10-20-2023 Note HNO ID: [id number] Author: KAILYN GILL MD Service: ? Author Type: Physician Type: Progress Notes Filed: 10/20/2023 12:24 Note Text: Some documentation from previous visit of 08/29/23 was copied and pasted, documentation has been reviewed and edited as necessary for today's visit. Patient Summary: Chika is a 53 year old Female who presents for follow-up evaluation of obesity/weight management to treat and prevent related co-morbidities. In our previous visits we have discussed lifestyle intervention including a nutrition recommendations and physical activity optimization. Her last office visit was 7 weeks ago. Assessment/plan from last visit: - discussed adding OWYN vegan protein shake or similar for breakfast and consuming within 15-20min - discussed doing two protein shakes and adding more whole foods with lunch and then regular dinner to add more protein to day - reviewed MINIMUM protein 90g/day - continue vit D supplement - reviewed if meds taking longer to get ok to push out maybe 10 days so she is not without medications for prolonged periods - has follow up for CPAP/LITO 09/06/23 - continue with Whole foods, Low carb, High protein -Continue prilosec for GERD -Continue Lipitor for Hypercholesteremia Zepbound 10mg ordered (will need to mixing picker tender 7.5mg this week) Interval History PT specifies the following items as new or significant updates since the last appointment: - having some food aversions not really hungry, carbs fill her up too quick - some nausea at times but no vomiting - having hard time getting 90g but is hitting in majority of time - exercise- struggling 1 x week - had hip surgery and taking care of him - very happy with how she is feeling, hasn't felt this good in years. -Feeling great, happy still losing despite not having kitchen (remodel) - trying to make sure she is getting protein during the day - Allergic to Whey- needs to find protein drink - going three weeks btwn doses- currently on 5mg - no nausea or side effects - no food noise - Happy that she is focusing on healthy food. Weight loss since last vist: 17 lb Total 36 lb - Last Wt 10/20/23 198 lb 08/30/23 215 lb 07/12/23 224 lb STARTING WEIGHT 05/30/23 234 lb (106.1 kg) 5% weight loss = 218 lbs, 10% weight loss = 206 lbs Anti-obesity medications: Tirzepatide (Zepbound). Benefit:decreased food noise , decreased appetite, Adverse effects: none Anti-obesity medications: Metformin. Benefit:elevated insulin Adverse effects: none Weight promoting medications: Inhaled corticosteroid Previous Diet (initial appointment): Wakes up: 5:30am- black coffee - drinks until lunch time Breakfast- 9am- Della cottage cheese pineapple and harley seeds, pea protein powder Lunch- seed 70cal nhi killer- Rotisserie chicken, garlic coffee Edamame, grapes (10) Dinner- Bonza chickpea pasta, chicken pasta, pepper, with veggies or schezwan chicken with white rice. Red cabbage with rice vinegar Snacks- sometimes chips, beef stick, cheese, Diet/Nutrition overview: Fluids: water (80-120oz) , black coffee 6cups Quality of diet: 24hr recall suggests in between diet. Characterization of diet:Structured. Sleeve Setter Safety Stitch of impaired eating habits:excessive hunger, emotion, and stress Eating Disorder no Preferred foods: Cravings: salty Nutrition Now: about the same B- [employer] triple zero - sometimes eggs with cottage cheese L- salad, rotissere chicken, primal kitchen avocado dressing or protein Shake ( owyn 32g) , nuts D- meat and vegetable (broccoli), Dietary changes: Eating 3 meals a day, including breakfast Increasing water intake Controlling portions Identify hunger and satiety cues Increasing protein Reducing carbohydrates Current Barriers: inadequate sleep duration/QUALITY Exercise: 3-4 days per week, spin, core and more, weights, Stress: stable Sleep: stable but up multiple times 8 hours. LITO YES ; CPAP yes Estimated Creatinine Clearance: 114.7 mL/min (based on SCr of 0.7 mg/dL). PAST MEDICAL HISTORY No date: Abnormal glandular Papanicolaou smear of cervix Comment: Abn. Pap smear (cervix) No date: Acute gastritis without mention of hemorrhage No date: Allergic rhinitis, seasonal 07/07/2012: Anxiety 03/17/2016: Chronic tension-type headache, intractable 07/07/2012: Depression 01/21/2020: Encounter for routine gynecological examination Comment: Sees Dr. Lainez No date: Esophageal stenosis 12/10/2015: GERD without esophagitis 11/01/2014: Hyperlipidemia, mixed No date: Kidney stone 06/06/2013: Obesity (BMI 35.0-39.9 without comorbidity) 01/22/2015: LITO (obstructive sleep apnea) Comment: Has a CPAP No date: Other constipation No date: Spongiotic dermatitis Comment: Dr. sapp 01/21/2020: Well adult exam Comment: Last done 10/26/21 Current Outpatient Medications Medication Sig Dispense Refill tirzepatide, weight loss ( (more content not included)... [facility] 10-20-2023 Note HNO ID: [id number] Author: THAIS FLETCHER LPN Service: ? Author Type: LICENSED NURSE Type: Progress Notes Filed: 10/20/2023 19:24 Note Text: REVIEW OF SYSTEMS: General: The patient denies fatigue, denies weight loss, denies weight gain, denies feeling hot, and denies feelings of cold. Eyes: The patient denies glaucoma, NOTES eye injury/surgery, wears glasses or contacts. Ear/Nose/Throat: The patient NOTES allergies, denies hayfever, denies ear infections, and denies bloody noses. Cardiovascular: The patient denies chest pain, denies heart disease, denies high blood pressure, NOTES high cholesterol, and denies poor circulation. Respiratory: The patient denies tuberculosis, denies pneumonia, denies frequent cough, denies shortness of breath, and denies coughing up blood. Gastrointestinal: The patient denies difficulty swallowing, NOTES acid reflux, denies ulcers, denies jaundice/hepatitis, denies gallbladder problems, denies vomiting, denies black or tarry stools, NOTES hemorrhoids, denies bleeding from rectum, denies diverticulitis, NOTES constipation, NOTES diarrhea, denies loss of stool control, and denies hernias. Kidney/Bladder: The patient denies kidney stones, denies urine infections, and denies bloody urine. Skin: The patient denies a history of skin cancer, denies bleeding/changing moles, and denies a history of skin rash. Neurologic: The patient denies a history of epilepsy/convulsions, NOTES headaches, denies head/spinal injuries, and denies stroke/TIA. Psychiatric: The patient denies psychiatric medications, denies depression, and denies voices. Endocrine: The patient denies thyroid disorders, denies diabetes, and denies hormonal problems. Hematologic: The patient denies a history of bruising, denies bleeding, and denies anemia. Infections: The patient denies a history of measles and mumps, denies rheumatic fever, and denies sexually transmitted diseases. Musculoskeletal: The patient denies back pain/injury, denies back problems, denies sciatica, denies knee/foot trouble, NOTES arthritis, or denies gout. [facility] 10-20-2023 Instructions Kailyn Gill MD - 10/20/2023 7:44 AM EDT Images from the original note were not included. Nutrition Reminders: NO NAKED CARBS!! Protein >= Carbs for each meal (if you are going to eat 50g carbs for lunch you should eat 50g protein or more). If you do not eat your carbs for lunch you do not get to save them for dinner- you use them or lose them. Balance your Protein between meals. Unless told otherwise your Minimum protein each day is 30grams per meal but don t be afraid to eat more. Focus on WHOLE FOODS if you can as your Gut Microbiome will benefit and you will feel more satisfied - the only caviot to this is protein shakes if needed. Water intake should be a minimum of 64oz per day- but more is better (to an extent) unless you have a medical condition that requires you to keep it to a minimum. Nothing is off limits- this is not about restricting yourself- this about learning what your body can have and still respond well to and learning how to balance food and still feel good. Track your food, weigh your food, measure your portion sizes as most people underestimate their food by approximately 40%. You should be tracking your Carbohydrates and Protein daily. It s ok if you had a bad day- write it down and move on! Weigh yourself daily or at least 5 times per week, it will help to keep you accountable. If you are hungry- think about your stress level, your sleep (did you get 7.5-9hrs?) and your protein consumption- if you did not meet your goals then those could be contributing to your hunger. During weight loss phase it is ok to use two protein shakes per day and eating one meal along with it - studies have shown you will lose more weight and keep it off. Take a multivitamin daily Sit less Move more- Exercise including resistance training is very important for your health and if you are not getting routine exercise right now there will come a point when it will become an important piece of this process. VEGAN PROTEIN LIST SOY Tempeh: 17g protein 8g carbohydrate in 1/2 cup, Shelled Edamame: 9g Protein, 8g carbohydrate in 1/2cup Tofu: 9g protein,2 g carbohydrate per 3oz Soy Milk: 7g Protein, 15g carbohydrate in 1 cup Nutritional Yeast 8g Protein, 5g Carbohydrate in 2TBSP (16g) Seitan 30g Protein, 6.8g Carbohydrate in 1/2 cup Whole Grains Quinoa: 8g protein in 1cup Wild rice 6.5g protein in 1 cup Legumes Lentils 12g protein, 23g carbohydrate in 1/2 cup cooked Chickpea 6g protein, 17g carbohydrate in 1/2 cup cooked Black Beans 7g protein, 19g carbohydrate in 1/2 cup cooked Green Split peas 8g protein, 22g carbohydrate in 1/2 cup cooked Garcia Mendiola 8g protein, 20g carbohydrate in 1/2 cup cooked Seeds Pumpkin 8g protein, 3 carbohydrate in 1/4cup Hemp 9g protein, 3 carbohydrate in 3 Tablespoons Tahini 10g protein, 3 carbohydrate in 2 Tablespoons Harley 5g protein, 10g carbohydrate in 2 tablespoons Nuts Almonds 6g protein, 6g carbohydrate in 1/4cup Walnuts 4g protein, 4g carbohydrate in 1/4cup Cashew 4g protein, 9g carbohydrate in 1/4cup Peanuts 8g protein, 5g carbohydrate in 1/4cup Peanut butter 7g protein, 6g carbohydrate in 2 TBSP Potatoes Russet potato- 1 medium (173g) 4.5g protein, 37g carbohydrate Red Potato- 1 large (299g) 6.9g protein, 59g carbohydrate Sweet Potato - 1 medium (114g) 2.3g protein, 24g carbohydrate Sprouted grain bread Nestor bread- per slice 5g protein, 15g carbohydrate Vegetables Artichoke- 4.2g protein, 13g carbohydrate in 1 medium (128g) Green Peas- 8g protein, 21g carbohydrates in 1 cup Brussel Sprouts - 3g protein, 8g carbohydrate in 1 cup [place]- 4.3g protein, 19g carbohydrate in 1/2cup Spinach- 1g protein, 1g carbohydrate in 1 cup 3g carb8g carb 20g protein, 4 carbohydrate per scoop QUICK VEGAN PROTEIN PRODUCTS/SNACKS: NOT high in protein- BUT LOW CARB SUBSTITUTE FOR NOODLES Tips for eating away from home: Youtube video: https://www.youtube.com/watch?v=V9oFJW oNYoA Meals away from home make it harder to control ingredients, calories, and portions. This can be particularly challenging for people with Type 2 diabetes (and for those of us trying to avoid getting this condition). The following tips can help you enjoy eating out without abandoning your efforts to eat well. Ask how the food is prepared. Before you order, ask about ingredients and how the menu selections are prepared. Try to choose dishes made with whole grains, healthy oils, vegetables, and lean proteins. Meat that has been broiled, poached, baked, or grilled is a more health-conscious option than fried foods or dishes prepared with heavy sauces. Look for less. Your eyes are the perfect instrument for sizing up portion sizes. Use your estimating techniques to size up the food on your plate. 1 thumb tip = 1 teaspoon of peanut butter, butter, or sugar 1 finger = 1 oz. of cheese 1 fist = 1 cup cereal, pasta, or vegetables 1 handful = 1 oz. of nuts or pretzels 1 palm = 3 oz. of meat, fish, or poultry Plan on eating half your meal and take the rest home to enjoy for lunch or dinner the next day. Order an extra side of veggies. Non-starchy vegetables, such as green beans, broccoli, asparagus, or summer squash, will help you fill up with low-calorie choices. Think ahead. Learn important nutrition information ahead of time. Most [employer] provide calories, sodium, and fat content for their menu items. Check out www.[employer] Link for a listing of over 50,000 foods, including many restaurant items. You can also visit company-specific websites Dining Out Tips Dining out is tricky. You have less control over ingredients & portions so even when you think you re ordering healthy, it s likely way more calories & less nutrition than a similar meal you d make at home. Research shows people who do best losing weight & keeping it off don t dine out much only 2.5 times out of 21 meals in a week. So, when you do dine out, make sure to use these PRO TIPS to keep your body happy DINE OUT LIKE A PRO 1. RUIN Your Appetite. About 1.5 hrs before you go out, eat something to cut hunger so you don t get to the restaurant & dive head first into the breadbasket. Try a produce + protein snack such as an apple + almonds or celery + sunflower seed butter. 2. Know BEFORE You Go. Do a few minutes of research before you re swept up in a whirlwind of socializing & drinking. This could be as simple as perusing the online menu on your phone on the ride to the restaurant. 3. Order a [employer] BUNDLE. Pair a healthy superfood with a less-healthy craving. It s the only way to honor both your inner health nut and wild child. At a [facility] joint and really want the pulled pork? Get it - but instead of plopping it on a refined grain bun, ask to put it alongside a salad. 4. Limit FLAVORS. Research shows variety stimulates appetite, meaning tasting little bits of many different foods will trigger you to over eat. So if you find yourself facing a tableful of small plates or buffet-style eating, commit to your absolute favorites rather than sampling every option. 5. Entree + ONE. It s often not just the meal that racks up CRAP calories, it s also the add-on apps + drinks + desserts. Focus on your main and skip these extras, or at least just pick your favorite ONE. Smart: Pick an appetizer salad! When [employer] researchers gave women a 100-calorie appetizer of either a salad or garlic bread, those who had the tiny salad ended up eating 21% less of their main course. Why Is Protein So Important for Weight loss? consuming more protein not only reduces body weight but enhances body composition by decreasing fat mass while preserving fat-free mass During weight loss phase protein consumption (with normal kidney function) should be 1-1.6g protein per Kilogram of body weight (1kg=2.2lbs) On average Women need to Aim for a minimum 90g protein per day Consuming higher protein can also prevent weight regain after weight loss Protein consumption increases hormones responsible for satiety (feeling full)- these include Gut hormones like Glucagon-like peptide-1 (GLP-1), Cholecystokinin (CCK), Peptide Tyrosine-Tyrosine (PYY) and decreasing the Gut hormone responsible for causing hunger Ghrelin Protein has an increased thermogenesis effect of food- which means it take more calories to break down protein when consumed compared to carbohydrates or fats Protein also prevents a losing lean mass during weight loss (lose more fat and preserve fat free mass) which helps to increase resting energy expenditure (resting metabolic rate) Every pound of muscle tracy ~ 6 kcal per pound/day vs fat tracy ~ 2kcal per pound/day Carbohydrates - Why do You Crave Them? Eating too many refined carbohyrdates (sugar beverages, pastries, bread, pizza) which raises your blood glucose levels and therefore releasing insulin which in turn causes increase in hunger Carbohydrates suppress Ghrelin quickly but does not maintain the suppression for very long therefore hunger returns more quickly Consuming carbohydrates leads to a release of Dopamine feel good hormone in our brain So how do you Curb these cravings? Eating Whole Foods with more fiber - High fiber carbs are absorbed and digested slowly so it does not impact blood sugar levels as much and will help in making you feel king for longer; fiber also is healthy for your gut bacteria and can help with constipation. Remember- carbohydrates are not the enemy but know what a proper serving size is, choose nutritious carbohydrates and space them out between meals. Always- eat your protein first followed by your non starchy vegetables followed by your carbohydrates- it will help your body with your glucose and insulin regulation Processed Foods vs Whole Foods- Impact on Weight: People who eat Ultra Processed food tend to consume about 500 calories more per day Ultra Processed foods are considered Calorie Dense so when a person feels full they have typically already over eaten and consumed more calories Whole Foods (unprocessed foods) tend to be more more filling and more Nutrient Dense Unprocessed foods can be more expensive and not realistic for everyone however when you have the choice to consume unprocessed vs Ultra processed foods always pick unprocessed. Why can't people stop eating Ultra Processed foods? They are economical and optimized for taste by [employer] - they are designed to make you want to keep eating them- they feed common cravings and bypass the mechanisms that tell your brain you are full Benefits of eating Whole Foods and cutting out Ultra Processed Foods Increased concentration and focus (decreased brain fog), improved mood, better sleep, Decrease in fatigue, improvement in gut health, decreased inflammation, Likely WEIGHT LOSS Creating a Mindful Eating Environment: 10 Mindless Eating Solutions If you're looking for easier ways to make healthy changes to your diet and lifestyle, consider these simple mindless eating solutions for staying on-track with nutrition: Serve Salad and Vegetables First. Before bringing out your main dish, serve salad and vegetables first to ensure you're eating enough of this important food group. This strategy will also help you eat less of the rest of your dish which is likely higher in calories, etc. Serve Your [facility] on the Stove or Counter. Studies show that we're likely to eat less if our food is placed on the stove or counter rather than right in front of us. Eat on Smaller Plates. Similar to the strategy mentioned above, studies show that you're likely to consume less food if you're eating from a smaller plate. This is likely due to the increase of smaller portion sizes. Turn off Your Television. Watching television as you eat can be highly distracting, and it affects your ability to eat mindfully. For example: you're less likely to notice when you're full, so you might consume excess calories. Keep Mostly Water On-hand. Calories from drinks can add up quickly, especially in fruit juices, alcohol and soft drinks. By minimizing the amounts of those drinks on-hand, you're more likely to consume water when you're thirsty - and water has amazing health benefits! Keep Your Kitchen Organized. An organized refrigerator, counter and cabinet space makes you more likely to find and choose the foods which are healthiest for you. On the contrary, a messy kitchen space may make you more apt to grab the first item you see. Pre-cut Your Fruits and Vegetables. Let's admit it: We're more likely to put off eating produce if we have to go through the burden of cutting it first. Pre-cut fruits and vegetables will eliminate this extra step. Have at Least Six Single Servings of Lean Protein On-hand. This includes lean meats such as turkey and chicken, yogurt, eggs, nuts, beans and legumes. By having plenty of lean protein on-hand, you can better manage your appetite and hunger levels. Keep All Snack Foods in One Inconvenient Cupboard. You're less likely to reach for unhealthy snack foods if they're not all gazing up at you from plain sight! Keep Only a Fruit Bowl on Your Counter. This way, if you're one to grab foods based off of their availability, you'll reach for healthier fruits rather than less healthy snack foods. https://www.obesityaction.org/communit y/news/community-news/wdifhj-b-fwheonu -eating-environment/ When thinking about weight-loss, one often has an ideal body weight in mind or an ultimate weight-loss goal. It s very common for people to think that unless they lose dozens of pounds, they will not be any healthier. This is a misconception. Studies have shown that health benefits resulting from weight-loss are evident with a weight reduction as low as 5-10 percent. This means that an individual that weighs 200 pounds will benefit greatly from losing 10 to 20 pounds. A 5-10 percent weight-loss can result in: A five point increase in HDL cholesterol. Decrease triglycerides by an average of 40 mg/dl Decrease in blood pressure, both systolic and diastolic, by 5 mmHg on average. Decrease HgB A1C by half a point on average Significant decrease in insulin levels May improve sleep apnea and sometimes if the apnea was not very severe, one can be weaned from the CPAP breathing machine Decrease in levels of inflammatory substances circulating in the blood drop significantly and therefore the risk of vascular damage is reduced as well AACE clinical criteria for insulin resistance syndrome The [place] Association of Clinical Endocrinologists (AACE) has formulated clinical criteria for the diagnosis of insulin resistance syndrome, as follows [7] : BMI of 25 kg/m2 or higher? Triglyceride level of 150 mg/dL or higher? HDL-C level of less than 40 mg/dL in men or less than 50 mg/dL in women? Blood pressure of 130/85 mm Hg or higher? Glucose level of more than 140 mg/dL 2 hours after administration of 75 g of glucose? Fasting glucose level of 110-126 mg/dL? Differences in diagnostic criteria Whereas the NCEP/ATP III criteria use fasting glucose level as the only measurement of glucose tolerance, the WHO and AACE criteria include the option of performing a 2-hour oral glucose tolerance test (OGTT). The OGTT better identifies individuals at risk for endothelial damage due to hyperglycemia, because IGT has been shown to be independently associated with endothelial dysfunction and, hence, cardiovascular risk. [16] Educational Podcasts: The Dr. Ozuna Show- Real Conversations about Health and Weight * November 29, 2022 what you need to know about Carbohydrates and Weight *November 08, 2022 Protein why we need it and how to eat more Protein *October 18, 2022 Menopause and Weight Gain- All the Details with Dr. Tracey Lauren *September 27, 2022 The Science Behind Ultra Processed Food and Weight Gain *July 12, 2022 Effects of sleep and Stress of Weight and Health with Dr. Yahaira Nair-DO Comfort * July 05, 2022 Recognizing and Resolving Emotional Eating with Dr. Andrews Obesity: A Disease *July 05, 2022 Episode 80 Clinical conversations: The Role of Physical Activity in Weight Management * October 15, 2022 Episode 84 Clinical Conversations: NAFLD, The [place] Disease of Metabolic Syndrome *October 142019 Episode 20 Article Reviews: The Role Ultra Processed Diets Play in Weight Gain *September 26, 2019 Episode 21 Clinical Conversations: Breaking Weight Plateaus documented in this encounter [facility] 10-13-2023 History of Present illness Narrative Scan on 10/13/2023 7:49 AM by Provider, JUAN DIEGO Alva: Consultation - Emergency Medicine documented in this encounter [facility] 09-09-2023 Telephone encounter Note TC to pt to discuss CPAP mask. Left VM to return call. Can transfer to neuro. Shira George LPN [facility] 09-09-2023 Miscellaneous Notes TC to pt to discuss CPAP mask. Left VM to return call. Can transfer to neuro. Shira George LPN documented in this encounter [facility] 09-06-2023 History of Present illness Narrative Images from the original note were not included. [facility] New Patient Evaluation PATIENT NAME: Chika Good DATE OF SERVICE: September 05, 2023 I have communicated my name and active licensure. The patient's identity and physical location were verified at the time of this visit. Either the patient or their legal contact center representative has been informed of the risks and benefits of -- and alternatives to -- treatment through a remote evaluation and consents to proceed with the evaluation remotely. CONSULTING PROVIDER: Dr Givens REASON FOR CONSULT: Self sends the patient for an opinion about LITO. My findings and recommendations will be transmitted electronically via shared medical record to the consulting provider. HPI: Chika Good is a 52 year old female. Sleep-related history: LITO, was never able to tolerate PAP. Never had trouble falling asleep with PAP. But she always awoke with air leaking out sides of mask, FFM, this happened maybe 1-2 hrs after falling asleep. Can sometimes feel her throat closing as she is falling asleep. Dentist just told her she is clenching, has a mouth guard now. SLEEP-WAKE SCHEDULE Bedtime: 9-930 PM. She does not have a hard time falling asleep. Wake time: 530 AM, with an alarm. After falling asleep: she does not usually wake up during the night. On weekends, she sleeps until 630-730 AM. Average total sleep time (in a 24 hour period): 8 hours. SLEEP-RELATED DETAILS Preferred sleep position: back Breathing disturbances and other behaviors during sleep: snoring. Bruxism: Yes clenches GERD or aspiration: No Waking up with heart pounding or racing: No Anxiety or rumination: No She reports having an urge to move the legs. The urge to move the legs only occurs in the evening or nighttime. The urge to move the legs begins or worsens during periods of rest or inactivity (e.g. lying or sitting). The urge to move the legs is partially or totally relieved by movements such as walking or stretching, at least as long as the activity continues. The urge to move the legs occurs once every few months and began many years ago. There is no history of iron deficiency or anemia. She has not been told that she has leg kicking during sleep. She denies any history of parasomnias. Daytime sleepiness is not a problem. She does not report sleep paralysis or sleep-related hallucinations or cataplexy WAKE-RELATED DETAILS She works but is not a shift worker. She does not have difficulty with memory or concentration. She denies falling asleep or dozing off when driving. She does not take naps. She does drink 1 caffeinated beverages per day. She has lost 20 pounds since 3 mos. Patient Questionnaires Sleep Scores 09/06/2023 Sleep Questions Reason for visit: Sleep apnea On average, hours of sleep in 24 hours: 8 Accidents or near accidents due to drowsy drivin 09/06/2023 [place] Sleepiness Scale Score 2 (No clinically significant daytime sleepiness) 09/06/2023 PROMIS CAT Sleep Disturbance PROMIS Sleep Disturbance T-Score 50 (within normal limits) PROMIS Sleep Disturbance Percentile 50 09/06/2023 Restless Leg Syndrome Score 8 (Mild Symptoms) 09/06/2023 PHQ-9 Score 2 09/06/2023 PROMIS Global Health - (T-Scores - the mean of general population = 50. Five points is a clinically meaningful difference.) Physical T-Score 54.1 Mental T-Score 50.8 Patient Questionnaires Sleep Scores 06/13/2023 PROMIS Global Health - (T-Scores - the mean of general population = 50. Five points is a clinically meaningful difference.) Physical T-Score 42.3 Mental T-Score 43.5 PAST TREATMENTS: CPAP PRIOR SLEEP STUDIES: 2014 PSG at [facility]: AHI 8.2, RDI 21, supine 11, REM 32, REM RDI 62 04/13/17 PAP titration at [facility], a PAP setting of 16/12 cm H20 was recommended (after she didn't tolerate CPAP). 08/2017 nasal septoplasty and turbinate reduction by Dr Sexton PAST MEDICAL HISTORY Diagnosis Date Abnormal glandular Papanicolaou smear of cervix Abn. Pap smear (cervix) Acute gastritis without mention of hemorrhage Allergic rhinitis, seasonal Anxiety 07/07/2012 Chronic tension-type headache, intractable 03/17/2016 Depression 07/07/2012 Encounter for routine gynecological examination 01/21/[address] 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 Well adult exam 01/21/2020 Last done 10/26/21 PAST SURGICAL HISTORY Procedure Laterality Date ADENOIDECTOMY PRIMARY <AGE 13 Adenoidectomy BREAST REDUCTION 09/2016 BX BREAST W/DEVICE 1ST LESION ULTRASOUND GUID Left 05/03/2015 U/S Needle core upper mid left breast DELIVERY ONLY 11/2007 [facility] COLONOSCOPY FLX DX W/COLLJ SPEC WHEN PFRMD 2003 Colonoscopy COLONOSCOPY FLX DX W/COLLJ SPEC WHEN PFRMD 08/21/2008 Colonoscopy COLONOSCOPY FLX DX W/COLLJ SPEC WHEN PFRMD 01/14/2015 COLONOSCOPY FLX DX W/COLLJ SPEC WHEN PFRMD 02/04/2020 Colonoscopy- repeat 5 year CONIZATION CERVIX W/WO D&C RPR ELTRD EXC 1993 LEEP-Cervix D&C, DIAG AND/OR THERAPEUTIC 12/2021 EGD 1991 REMOVAL OF FOREIGN BODY EGD TRANSORAL BIOPSY SINGLE/MULTIPLE 06/12/2008 ESOPHAGOGASTRODUODENOSCOPY TRANSORAL DIAGNOSTIC 05/16/2017 EGD ESOPHAGOGASTRODUODENOSCOPY TRANSORAL DIAGNOSTIC 02/04/2020 EGD- repeat in 1 year ESOPHAGOSCOPY FLEX BALLOON DILAT <30 MM DIAM 06/12/2008 SEPTOPLASTY 08/29/2017 Dr. Manny Sexton-nasal airway obstruction. deviated septum, inferior turbinate hypertrophy TONSILLECTOMY PRIMARY/SECONDARY <AGE 13 Tonsillectomy ACTIVE PROBLEM LIST Family history of malignant neoplasm of gastrointestinal tract Moderate Persistent Asthma Without Complication Allergic Rhinitis, Seasonal Anxiety Depression Obesity (BMI 35.0-39.9 without comorbidity) Hyperlipidemia, Mixed Lito (Obstructive Sleep Apnea) Abnormal Mammogram Psoriasis Gerd Without Esophagitis Upper Back Pain Neck Pain Chronic Tension-Type Headache, Intractable Large Breasts Encounter for Screening for Diabetes Mellitus Well Adult Exam Spongiotic Dermatitis Encounter for Routine Gynecological Examination Medication Management Vitamin D Deficiency Allergies As of Date: 09/06/2023 (No Known Allergies) Fully Assessed 09/06/2023 CURRENT MEDICATIONS: tirzepatide, weight loss (ZEPBOUND) 7.5 mg/0.5 mL pen injector Inject 7.5 mg subcutaneously one time a week. [START ON 09/26/2023] tirzepatide, weight loss (ZEPBOUND) 10 mg/0.5 mL pen injector Inject 10 mg subcutaneously one time a week. Patient should start on September 26, 2023. metFORMIN ER (GLUCOPHAGE XR) 500 mg 24 hr tablet Take 2 tablets by mouth daily with dinner. Norethindrone, Contraceptive, 0.35 mg tablet Take 1 tablet by mouth once daily. omeprazole (PRILOSEC) 40 mg capsule Take 1 capsule by mouth once daily. ADELINA 0.0375 mg/24 hr estradiol (ESTRACE) 0.01 % (0.1 mg/gram) vaginal cream atorvastatin (LIPITOR) 20 mg tablet Take 1 tablet by mouth daily at bedtime. For cholesterol. fluticasone-salmeterol (ADVAIR DISKUS) 250-50 mcg/dose inhaler Inhale 1 Puff as instructed two times a day. Rinse and gargle mouth after use with water. albuterol HFA (VENTOLIN HFA) 90 mcg/actuation inhaler Inhale 2 Puffs as instructed every 4 hours as needed. CHOLECALCIFEROL, VITAMIN D3, ORAL Take by mouth as directed. Combined with omega 3 DUPIXENT SYRINGE 300 mg/2 mL injection Review of Systems Constitutional: Negative for fatigue and recent unintentional weight change. Cardiovascular: Negative for palpitations. Gastrointestinal: Negative for heartburn (controlled with med). Genitourinary: Negative for nocturia. Neurological: Negative for headaches (had morning headaches until she got mouth guard). SOCIAL HISTORY: Social History Tobacco Use Smoking status: Former Years: 15 Types: Cigarettes Quit date: 07/12/2006 Years since quittin.1 Smokeless tobacco: Never Tobacco comments: SOCIAL SMOKER IN PAST Vaping Use Vaping Use: Never used Substance Use Topics Alcohol use: Yes Comment: rare,NOT WHILE Drug use: No FAMILY HISTORY: FAMILY HISTORY Problem Relation Age of Onset Asthma Mother Hypertension Father Colon Cancer Father Colon polyps Colon Cancer Maternal Grandfather Colon Cancer Paternal Grandfather Blood Disease Sister Asthma Brother There is a family history of: Sleep apnea. Relative: mother and brother PHYSICAL EXAMINATION: Vital Signs: Deferred due to virtual visit via Zoom. General appearance: NAD Mental status: awake and alert Constitutional: Well groomed Skin: Dry and intact Neuro: Speech fluent IMPRESSION/PLAN: G47.33 Obstructive sleep apnea (primary encounter diagnosis) Z78.9 Intolerance of continuous positive airway pressure (CPAP) ventilation Chika Good is a 52 year old female with overall mild LITO which is exacerbated to severe in REM sleep. PMH of HLD, asthma, GERD, psoriasis, depression, anxiety. She was prescribed autoCPAP in 2014, was able to fall asleep without difficulty, but then would awake 1-2 hrs later with mask blowing off face, like air couldn't get in. This seems consistent with increased nasal congestion in REM sleep. I don't find an Rx for biPAP in her chart, unclear if she ever tried biPAP after the 2018 titration study. She then had septoplasty/turbinate reduction in 08/2017--unclear if she tried PAP after that surgery. Plan is to try PAP again and see if she remains asleep with it. She will bring machine to me at office so I can see if CPAP or biPAP and check pressure setting. Will supply a sample Rm hybrid FFM. She is working on wt loss. Treating LITO may help with wt loss. Could consider oral mandibular advancement device; would need to update sleep study, insurance would require HSAT. Libby Goodman APRN.[email or web address] documented in this encounter [facility] 08-29-2023 Instructions Kailyn Gill MD - 08/29/2023 5:14 PM EDT Images from the original note were not included. VEGAN PROTEIN LIST SOY Tempeh: 17g protein 8g carbohydrate in 1/2 cup, Shelled Edamame: 9g Protein, 8g carbohydrate in 1/2cup Tofu: 9g protein,2 g carbohydrate per 3oz Soy Milk: 7g Protein, 15g carbohydrate in 1 cup Nutritional Yeast 8g Protein, 5g Carbohydrate in 2TBSP (16g) Seitan 30g Protein, 6.8g Carbohydrate in 1/2 cup Whole Grains Quinoa: 8g protein in 1cup Wild rice 6.5g protein in 1 cup Legumes Lentils 12g protein, 23g carbohydrate in 1/2 cup cooked Chickpea 6g protein, 17g carbohydrate in 1/2 cup cooked Black Beans 7g protein, 19g carbohydrate in 1/2 cup cooked Green Split peas 8g protein, 22g carbohydrate in 1/2 cup cooked Garcia Mendiola 8g protein, 20g carbohydrate in 1/2 cup cooked Seeds Pumpkin 8g protein, 3 carbohydrate in 1/4cup Hemp 9g protein, 3 carbohydrate in 3 Tablespoons Tahini 10g protein, 3 carbohydrate in 2 Tablespoons Harley 5g protein, 10g carbohydrate in 2 tablespoons Nuts Almonds 6g protein, 6g carbohydrate in 1/4cup Walnuts 4g protein, 4g carbohydrate in 1/4cup Cashew 4g protein, 9g carbohydrate in 1/4cup Peanuts 8g protein, 5g carbohydrate in 1/4cup Peanut butter 7g protein, 6g carbohydrate in 2 TBSP Potatoes Russet potato- 1 medium (173g) 4.5g protein, 37g carbohydrate Red Potato- 1 large (299g) 6.9g protein, 59g carbohydrate Sweet Potato - 1 medium (114g) 2.3g protein, 24g carbohydrate Sprouted grain bread Nestor bread- per slice 5g protein, 15g carbohydrate Vegetables Artichoke- 4.2g protein, 13g carbohydrate in 1 medium (128g) Green Peas- 8g protein, 21g carbohydrates in 1 cup Brussel Sprouts - 3g protein, 8g carbohydrate in 1 cup [place]- 4.3g protein, 19g carbohydrate in 1/2cup Spinach- 1g protein, 1g carbohydrate in 1 cup 3g carb8g carb 20g protein, 4 carbohydrate per scoop QUICK VEGAN PROTEIN PRODUCTS/SNACKS: NOT high in protein- BUT LOW CARB SUBSTITUTE FOR NOODLES Get started cutting down on sugar with these tips: Toss the table sugar (white and brown), syrup, honey and molasses. Cut back on the amount of sugar added to things you eat or drink regularly like cereal, pancakes, coffee or tea. Try cutting the usual amount of sugar you add by half and wean down from there. Swap out the soda. Water is best, but if you want something sweet to drink or are trying to lose weight, diet drinks can be a better choice than sugary drinks. Eat fresh, frozen, dried or canned fruits. Choose fruit canned in water or natural juice. Avoid fruit canned in syrup, especially heavy syrup. Drain and rinse in a colander to remove excess syrup or juice. Compare food labels and choose products with the lowest amounts of added sugars. Dairy and fruit products will contain some natural sugars. Added sugars can be identified in the ingredients list. Add fruit. Instead of adding sugar to cereal or oatmeal, try fresh fruit (bananas, cherries or strawberries) or dried fruit (raisins, cranberries or apricots). Cut the serving back. When baking cookies, brownies or cakes, cut the sugar called for in your recipe by one-third to one-half. Often you won t notice the difference. Try extracts. Instead of adding sugar in recipes, use extracts like almond, vanilla, orange or lemon. Replace it completely. Enhance foods with spices instead of sugar. Try henrry, allspice, cinnamon or nutmeg. Substitute. Switch out sugar with unsweetened applesauce in recipes (use equal amounts). Limit Non-nutritive Sweeteners. If you are trying to lose weight, a temporary fix to satisfying your sweet tooth may be with non-nutritive sweeteners. But watch out! Make sure that swapping sugary options for non-nutritive sweeteners now doesn t lead to eating more later. https://www.heart.org/en/healthy-livin g/healthy-eating/eat-smart/sugar/tips- fci-qmaslgy-bfzx-on-sugar 14 Ways to Lower Your Insulin Levels Insulin is an extremely important hormone that s produced by your pancreas. It has many functions, such as allowing your cells to take in sugar from your blood for energy. However, living with chronically high levels of insulin, also known as hyperinsulinemia, can lead to excessive weight gain and serious health problems like heart disease and cancer (1, 2, 3). High blood insulin levels can also cause your cells to become resistant to the hormone s effects. This condition, known as insulin resistance, leads your pancreas to produce even more insulin, creating a precarious cycle (4). If your doctor has advised you to lower your insulin levels, here are 14 things you can do. 1. Follow a lower-carb eating plan Of the three macronutrients -- carbohydrates, protein, and fat -- carbs raise blood sugar and insulin levels the most. Even though carbs are an essential part of most balanced, nutritious diets, lower-carb diets can be very effective for losing weight and managing diabetes (5, 6). Many studies have confirmed the effectiveness of lower-carb eating plans for lowering insulin levels and increasing insulin sensitivity, especially when compared with other diets. People living with health conditions characterized by insulin resistance, such as metabolic syndrome and polycystic ovary syndrome (PCOS), may experience a dramatic lowering of insulin with carb restriction (6, 7, 8). In a smaller study from 2008, people with metabolic syndrome were randomized to receive either a low fat or low carb diet containing 1,500 calories (9). Insulin levels dropped by an average of 50% in the low carb group, compared with 19% in the low fat group. Those on the low carb diet also lost more weight (9). In another small study from 2012, when people with PCOS ate a lower-carb diet containing enough calories to maintain their weight, they experienced greater reductions in insulin levels than when they ate a higher-carb diet (10). Summary While carbohydrates are typically an important part of a balanced diet, lower-carb diets have been shown to increase insulin sensitivity and reduce insulin levels in people living with obesity, diabetes, metabolic syndrome, and PCOS. 2. Consider supplementing with apple cider vinegar Apple cider vinegar (ACV) may help prevent insulin and blood sugar spikes after eating, particularly when consumed with high carbohydrate foods (11). One review found that consuming 2-6 tablespoons of vinegar daily appears to improve glycemic response to carbohydrate-rich meals. It s important to note, however, that this review incorporated studies that used other forms of vinegar in addition to ACV (12). Another review of studies found that consuming vinegar with meals affects both blood glucose and insulin levels. Individuals consuming vinegar with meals had lower blood sugar and insulin levels than those who didn t consume it. But again, this review did not specify ACV (13). A third review of studies from 2020 specifically targeted ACV analyzed its effect on glycemic control in adults (14). The researchers found that consuming ACV significantly decreased fasting blood sugar and HbA1C (a measure of blood sugar over time). However, ACV did not seem to affect fasting insulin levels or insulin resistance (14). Summary Vinegar may help ease high blood sugar and insulin levels after meals, particularly when those meals are high in carbs. However, results are mixed and more research is needed -- especially around apple cider vinegar in particular. 3. Keep an eye on portion sizes Your pancreas releases different amounts of insulin depending on the type of food you eat, but eating a large amount of foods that cause your body to produce extra insulin can eventually lead to hyperinsulinemia. This is of particular concern for people who are already living with obesity and insulin resistance (15). In one small 2017 study, otherwise healthy people classified as having either a normal BMI or a higher BMI each ate meals with different glycemic loads for a few days. Researchers found that while the meals with a higher glycemic load (those with more sugar and carbs) spiked everyone s blood sugar, the blood sugar of individuals with BMIs in the obese category stayed elevated longer (16). Consuming fewer calories has consistently been shown to increase insulin sensitivity and decrease insulin levels in people living with excess weight and obesity, regardless of the type of diet they consume (17, 18, 19, 20). One small study from 2011 analyzed different weight loss methods in 157 people living with metabolic syndrome, which is a group of conditions that include a larger waist circumference and high blood sugar (19). The researchers found that fasting insulin levels decreased by 16% in the group that practiced calorie restriction and 12% in the group that practiced portion control (19, 21). Even though calorie restriction has been shown to ease excess insulin levels, It s a good idea to seek the help of a cmm inspector or doctor before making any dietary changes to be sure you aren t missing out on any important macro or micronutrients. Summary Reducing calorie intake can help lower insulin levels in people living with excess weight or obesity who have type 2 diabetes or metabolic syndrome. 4. Lower your intake of all forms of sugar Sugar may very well be the most important ingredient to keep an eye on if you re trying to lower your insulin levels. Diets high in added sugar are associated with insulin resistance and may promote the development of metabolic disease (22). In a small study from 2008, otherwise healthy people were tasked with eating an increased amount of either candy (sugar) or peanuts (fat). The candy group experienced a 31% increase in fasting insulin levels, while the peanut group had a 12% increase (23). In another small study from 2013, otherwise healthy adults consumed jams containing varying amounts of sugar. The adults who consumed high sugar jams saw their insulin levels rise significantly as compared with those who ate the lower-sugar jams (24). Fructose is a type of natural sugar found in table sugar, honey, fruit, corn syrup, agave, and syrup. While some studies have singled out fructose as particularly harmful for blood sugar control and insulin resistance, there isn t enough evidence to suggest fructose is more harmful than other types of sugars when consumed in moderate amounts (25). Indeed, one study found that replacing glucose or sucrose with fructose actually lowered peak post-meal blood sugar and insulin levels, especially in people with prediabetes or type 1 or type 2 diabetes (26). Summary A high intake of sugar in any form has been shown to increase insulin levels and promote insulin resistance if consumed for a length of time. 5. Prioritize physical activity Engaging in regular physical activity can have powerful insulin-lowering effects. Aerobic exercise appears to be very effective at increasing insulin sensitivity in people living with obesity or type 2 diabetes (27, 28, 29). One study looked at the effect of sustained aerobic exercise versus high intensity interval training on metabolic fitness in men with obesity (29). Although both groups experienced improvements in fitness, only the group that performed sustained aerobic activity experienced significantly lower insulin levels (29). There s also research showing that resistance training can help decrease insulin levels in older adults and people who are more sedentary (30, 31). And lastly, combining aerobic and resistance exercise may be the best choice when it comes to positively affecting insulin sensitivity and levels (32, 33). Summary Aerobic exercise, strength training, or a combination of both may help lower insulin levels and increase insulin sensitivity. 6. Try adding cinnamon to foods and beverages Cinnamon is a delicious spice loaded with health-promoting antioxidants. Recent studies suggest that both individuals living with insulin resistance and those with relatively normal insulin levels who supplement with cinnamon may experience enhanced insulin sensitivity and decreased insulin levels (34, 35, 36). In one small, well-designed study, women with PCOS who took 1.5 grams of cinnamon powder daily for 12 weeks had significantly lower fasting insulin and insulin resistance than women who took a placebo (35). In another small, well-designed study, individuals living with type 2 diabetes who took 500 mg of cinnamon powder twice daily for 3 months had lower fasting insulin and insulin resistance than those who took a placebo (34). Improvements in insulin and insulin sensitivity were most pronounced for individuals with higher BMIs (34). It s important to note that there is no recommended dose of cinnamon that has been tested across the board, and not all studies have found that cinnamon helps lower insulin levels or increases insulin sensitivity. Cinnamon s effects may vary from person to person (37, 38). Summary Some studies have found that adding cinnamon to foods or beverages lowers insulin levels and increases insulin sensitivity, but results are mixed. 7. When eating carbs, choose complex carbs While complex carbs are an important part of a nutritious diet, refined or simple carbs don t usually contain a lot of fiber or micronutrients and are digested very quickly. Refined carbs include simple sugars as well as grains that have had the fibrous parts removed. Some examples are cereal with added sugar, highly processed fast foods, foods made with refined flour like certain breads and pastries, and white rice (39). Regularly consuming refined carbs can lead to several health problems, including high insulin levels and weight gain (40, 41). Furthermore, refined carbs have a high glycemic index (GI). The GI is a scale that measures a specific food s capacity to raise blood sugar. Glycemic load takes into account a food s glycemic index and the amount of digestible carbs contained in a serving (42). Some studies comparing foods with different glycemic loads have found that eating a tzfi-kjihqjbp-okwo food raises insulin levels more than eating the same portion of a koa-zvrickqi-aocf food, even if the carb contents of the two foods are similar (43, 44). However, other studies comparing kbiv-jlsjarco-gqpx and nliu-mmsyeagh-oqoxv diets with los-gizumdnb-mces and lew-udybdzzz-pkbql diets have found no difference in their effects on insulin levels or insulin sensitivity (45, 46). Summary Replacing refined carbs, which are digested quickly and can sharply raise blood sugar, with slower-digesting complex carbs and whole grains may help lower insulin levels. 8. Increase your overall activity level Living an active lifestyle can help reduce insulin levels. A 2005 study of more than 1,600 people found that the most sedentary people (who didn t spend free time engaged in moderate or vigorous activity) were nearly twice as likely to have metabolic syndrome as those who did at least 150 minutes of moderate activity per week (47). Other studies have shown that getting up and walking around, rather than sitting for prolonged periods, can help keep insulin levels from spiking after a meal (48). One study looked at the effect of physical activity on insulin levels in men with extra weight who were at risk for type 2 diabetes. Those who took the most steps per day had the greatest reduction in insulin levels and belly fat compared with those who took the fewest steps (49). Summary Avoiding sitting for prolonged periods and increasing the amount of time you spend walking or doing other moderate activities may help reduce insulin levels. 9. Consider intermittent fasting Intermittent fasting (an eating plan where you have set hours for eating and set hours for fasting during a 24-hour period) has been popping up in headlines recently, specifically around its possible weight loss benefits. Research also suggests intermittent fasting may help reduce insulin levels as effectively as or more effectively than daily calorie restriction (50, 51). A 2019 study compared alternate-day fasting with calorie restriction in adults with extra weight or obesity and insulin resistance (52). Those using alternate-day fasting for 12 months had greater reductions in fasting insulin and insulin resistance than those who restricted their calorie intake, as well as those in the control group (52). Although many people find intermittent fasting beneficial and enjoyable, it doesn t work for everyone and may cause problems in some people. A doctor or cmm inspector can help you figure out whether intermittent fasting is right for you and how to do it safely. Summary Intermittent fasting may help reduce insulin levels. However, more research needs to be done, and this way of eating may not suit everyone. 10. Increase soluble fiber intake Soluble fiber provides a number of health benefits, including aiding in weight loss and reducing blood sugar levels. After you eat, the soluble fiber in food absorbs water and forms a gel, which slows down the movement of food through your digestive tract. This promotes feelings of fullness and keeps your blood sugar and insulin from rising too quickly after a meal (53, 54). One observational study from 2013 found that individuals assigned female at who ate the most soluble fiber were half as likely to be insulin-resistant as individuals assigned female who ate the least soluble fiber (55). Soluble fiber also helps feed the friendly bacteria that live in your colon, which may improve gut health and reduce insulin resistance. In a 6-week controlled study of older women with obesity, those who took flaxseed (which contains soluble fiber) experienced greater increases in insulin sensitivity and lower insulin levels than women who took a probiotic or placebo (56). Overall, fiber from whole foods appears to be more effective at reducing insulin than fiber in supplement form, although results are mixed. One study found that insulin decreased when people consumed black beans but not when they took a fiber supplement (57). Summary Soluble fiber, especially from whole foods, has been shown to increase insulin sensitivity and lower insulin levels, particularly in people living with obesity or type 2 diabetes. 11. Concentrate on weight loss, if advised The distribution of fat throughout your body is determined by age, sex hormones, and genetic variation (58). An overabundance of belly fat -- also known as visceral or abdominal fat -- in particular is linked to many health issues. Visceral fat can promote inflammation and insulin resistance, which drives hyperinsulinemia (59, 60, 61). A small study from 2013 suggests that losing visceral fat can lead to increased insulin sensitivity and lower insulin levels (62). Interestingly, another small study from 2013 found that people who lost abdominal fat retained the benefits for insulin sensitivity even after regaining a portion of the belly fat (63). There is no way to specifically target visceral fat when losing weight. However, visceral fat loss is linked to subcutaneous fat loss, so when you lose weight in general, you ll likely also lose visceral fat. Furthermore, studies show that when you lose weight, you lose a higher percentage of visceral fat than fat throughout the rest of your body (64). If your doctor has advised you to lose weight, talk with them about the best weight loss program for you. Summary If your doctor advises you to do so, losing visceral fat can increase insulin sensitivity and help reduce your insulin levels. While you can t target visceral fat specifically, when you lose weight overall, you lose visceral fat as well. 12. Incorporate green tea into your diet Green tea contains high amounts of an antioxidant known as epigallocatechin gallate (EGCG), which may help fight insulin resistance (65, 66, 67). In a 2016 study, postmenopausal individuals living with obesity and high insulin levels who took green tea extract experienced a small decrease in insulin over 12 months, while those who took a placebo had increased insulin levels following the intervention (66). In a 2013 review, researchers reported that green tea appeared to significantly lower fasting insulin levels in high quality studies (67). However, there are other high quality studies on green tea supplementation that have not shown a reduction in insulin levels or increased insulin sensitivity (68). Summary Several studies have found that green tea may increase insulin sensitivity and decrease insulin levels, but results are mixed. 13. Eat more fatty fish There are many reasons to consume fatty fish like salmon, sardines, mackerel, romano, and anchovies. They provide high quality protein and are some of the best sources of long-chain omega-3 fats, which offer many health benefits (69). Studies have shown that the omega-3s in fatty fish may also help reduce insulin resistance in people living with obesity, gestational diabetes, and PCOS (70, 71, 72). According to the U.S. Department of Health and Human Service s Dietary Guidelines for Americans, adults can safely consume at least 8 ounces of seafood per week (based on a 2,000-calorie diet). Young children should eat less. People who are or should eat 8-12 ounces of a variety of seafood per week, choosing options that are lower in mercury (73). While eating fish is typically recommended over taking supplements for a variety of reasons (more omega-3s aren t always better, and fish has additional nutrients and vitamins), fish oil supplements are sold widely in stores and are often used in studies. These supplements contain the same long-chain omega-3 fats as the fish itself, but the effective dosage has not yet been determined (74). Despite the need for more research, fish oil has been shown to support healthy blood sugar. One small 2011 study in individuals with PCOS found a significant 8.4% decrease in insulin levels in a group who took fish oil, compared with a group who took a placebo (71). Another study from 2012 found that children and adolescents with obesity who took fish oil supplements significantly reduced their insulin resistance and triglyceride levels (72). Finally, a review of 17 studies found that taking fish oil supplements is associated with increased insulin sensitivity in people living with metabolic disorders (75). Summary The long-chain omega-3s in fatty fish may help reduce insulin resistance and insulin levels, especially in those with metabolic disorders. While fish oil supplements are sold widely and often used in studies, the effective dosing has not yet been determined. 14. Get the right amount and type of protein Consuming adequate protein at meals can be beneficial for controlling your weight and insulin levels. In a small study from 2014, premenopausal individuals living with obesity had lower insulin levels after consuming a high protein breakfast compared with a low protein breakfast. They also felt king and ate fewer calories at lunch (76). However, protein stimulates insulin production so that your muscles can take up amino acids. Therefore, eating very high amounts over a prolonged period may lead to higher insulin levels in otherwise healthy individuals (77). A larger study from 2018 sheds some light on these diverging results: When it comes to protein, dietary patterns are important. For instance, researchers found that individuals who ate a majority of plant proteins were less likely to develop type 2 diabetes, while individuals who ate a lot of protein in the form of red meat had a greater likelihood of living with or developing type 2 diabetes (78). So while protein is important, eating a variety of protein that isn t overly processed and is nutrient-dense is even more important. https://www.healthline.com/nutrition/1 2-mxtk-ha-lower-insulin Tips for eating away from home: Youtube video: https://www.youVoz.ioube.com/watch?v=V9oFJW oNYoA Meals away from home make it harder to control ingredients, calories, and portions. This can be particularly challenging for people with Type 2 diabetes (and for those of us trying to avoid getting this condition). The following tips can help you enjoy eating out without abandoning your efforts to eat well. Ask how the food is prepared. Before you order, ask about ingredients and how the menu selections are prepared. Try to choose dishes made with whole grains, healthy oils, vegetables, and lean proteins. Meat that has been broiled, poached, baked, or grilled is a more health-conscious option than fried foods or dishes prepared with heavy sauces. Look for less. Your eyes are the perfect instrument for sizing up portion sizes. Use your estimating techniques to size up the food on your plate. 1 thumb tip = 1 teaspoon of peanut butter, butter, or sugar 1 finger = 1 oz. of cheese 1 fist = 1 cup cereal, pasta, or vegetables 1 handful = 1 oz. of nuts or pretzels 1 palm = 3 oz. of meat, fish, or poultry Plan on eating half your meal and take the rest home to enjoy for lunch or dinner the next day. Order an extra side of veggies. Non-starchy vegetables, such as green beans, broccoli, asparagus, or summer squash, will help you fill up with low-calorie choices. Think ahead. Learn important nutrition information ahead of time. Most fast-food [employer] provide calories, sodium, and fat content for their menu items. Check out www.C2[employer] Link for a listing of over 50,000 foods, including many restaurant items. You can also visit company-specific websites Dining Out Tips Dining out is tricky. You have less control over ingredients & portions so even when you think you re ordering healthy, it s likely way more calories & less nutrition than a similar meal you d make at home. Research shows people who do best losing weight & keeping it off don t dine out much only 2.5 times out of 21 meals in a week. So, when you do dine out, make sure to use these PRO TIPS to keep your body happy DINE OUT LIKE A PRO 1. RUIN Your Appetite. About 1.5 hrs before you go out, eat something to cut hunger so you don t get to the restaurant & dive head first into the breadbasket. Try a produce + protein snack such as an apple + almonds or celery + sunflower seed butter. 2. Know BEFORE You Go. Do a few minutes of research before you re swept up in a whirlwind of socializing & drinking. This could be as simple as perusing the online menu on your phone on the ride to the restaurant. 3. Order a [employer] BUNDLE. Pair a healthy superfood with a less-healthy craving. It s the only way to honor both your inner health nut and wild child. At a bb joint and really want the pulled pork? Get it - but instead of plopping it on a refined grain bun, ask to put it alongside a salad. 4. Limit FLAVORS. Research shows variety stimulates appetite, meaning tasting little bits of many different foods will trigger you to over eat. So if you find yourself facing a tableful of small plates or buffet-style eating, commit to your absolute favorites rather than sampling every option. 5. Entree + ONE. It s often not just the meal that racks up CRAP calories, it s also the add-on apps + drinks + desserts. Focus on your main and skip these extras, or at least just pick your favorite ONE. Smart: Pick an appetizer salad! When [employer] researchers gave women a 100-calorie appetizer of either a salad or garlic bread, those who had the tiny salad ended up eating 21% less of their main course. How alcohol affects your weight loss 1. Alcohol is often empty calories Alcoholic drinks are often referred to as empty calories. This means that they provide your body with calories but contain very little nutrients. There are almost 155 calories in one 12-ounce can of beer, and 125 calories in a 5-ounce glass of red wine. By comparison, a recommended afternoon snack should have between 150 and 200 calories. A night out with several drinks can lead to consuming a few hundred extra calories. Drinks that have mixers, such as fruit juice or soda, contain even more calories. 2. Alcohol is used as a primary source of fuel There are also other elements that can cause weight gain outside of calorie content. When alcohol is consumed, it s burned first as a fuel source before your body uses anything else. This includes glucose from carbohydrates or lipids from fats. When your body is using alcohol as a primary source of energy, the excess glucose and lipids end up, unfortunately for us, as adipose tissue, or fat. 3. Alcohol can affect your organs The primary role of your liver is to act as the filter for any foreign substances that enter your body, such as drugs and alcohol. The liver also plays a role in the metabolism of fats, carbohydrates, and proteins. Excess alcohol consumption can lead to what is known as alcoholic fatty liver. This condition can damage your liver, affecting the way your body metabolizes and stores carbohydrates and fats. Changes in the way your body stores energy from food can make it very difficult to lose weight. 4. Alcohol can contribute to excess belly fat The beer gut isn t just a myth. Foods high in simple sugars, such as those found in candy, soda, and even beer, are also high in calories. Extra calories end up stored as fat in the body. Consuming foods and drinks high in sugar can quickly lead to weight gain. We can t choose where all that extra weight ends up. But the body tends to accumulate fat in the abdominal area. 5. Alcohol affects judgment calls especially with food Even the most -hard diet fan will have a hard time fighting the urge to dig in when intoxicated. Alcohol lowers inhibitions and can lead to poor decision-making in the heat of the moment -- especially when it comes to food choices. However, the effects of alcohol surpass even social drinking etiquette. A recent animal studyTrusted Source found that mice given ethanol over a period of three days demonstrated a significant increase in food intake. This study suggests that alcohol can actually trigger hunger signals in the brain, leading to an increased urge to eat more food. 6. Alcohol and sex hormones It s long been known that alcohol intake can affect levels of hormones in the body, especially testosteroneTrusted Source. Testosterone is a sex hormone that plays a role in many metabolic processes, including muscle formation and fat burning capabilities. One study found that low testosterone levels may predict the prevalence of metabolic syndrome in men. Metabolic syndrome is characterized by: high cholesterol high blood pressure high blood sugar levels high body mass index Plus, lower testosterone levels may affect quality of sleep, especially in older men. 7. Alcohol can negatively affect your sleep A nightcap before bed may sound like a ticket to a good night s rest but you may want to reconsider. ResearchTrusted Source suggests that alcohol can lead to increased periods of wakefulness during sleep cycles. Sleep deprivation, whether from lack of sleep or impaired sleep, can lead to an imbalance in the hormones related to hunger, satiety, and energy storage. 8. Alcohol affects digestion and nutrient uptake Your social anxiety isn t the only thing that alcohol inhibits. Intake of alcoholic beverages can also inhibit proper digestive function. Alcohol can cause stress on the stomach and the intestines. This leads to decreasedTrusted Source digestive secretions and movement of food through the tract. Digestive secretions are an essential element of healthy digestion. They break down food into the basic macro- and micronutrients that are absorbed and used by the body. Alcohol intake of all levels can lead to impaired digestion and absorption of these nutrients. This can greatly affect the metabolism of organs that play a role in weight management. Best alcoholic drinks for weight loss This may all sound as if alcohol is ruining your chances of that beach body. But fear not -- watching your weight doesn t necessarily mean having to cut alcohol entirely out of your diet. Rather than reaching for drinks high in sugar or calories, enjoy some of these 100-calorie options instead: 1. Vodka Calories: 100 calories in 1.5 ounces of distilled 80-proof vodka Alternative cocktail: Choose low-calories mixers such as club soda and avoid overly sugary juices. 2. Whiskey Calories: 100 calories in 1.5 ounces of 86-proof whiskey Alternative cocktail: Ditch the cola and take your whiskey on the rocks for a low-calorie alternative. 3. Gin Calories: 115 calories in 1.5 ounces of 90-proof gin Alternative cocktail: Aim for something simple, such as a martini -- and don t skip the olives, they contain beneficial antioxidants such as vitamin E. 4. Tequila Calories: 100 calories in 1.5 ounces of tequila Alternative cocktail: The best part about tequila is that the customary tequila shot is just salt, tequila, and [place]. 5. Kindra Calories: 100 calories in 1.5 ounces of kindra Alternative cocktail: This drink is best served as an after-dinner digestif and a good kindra should be enjoyed slowly to savor the subtle fruity sweetness. The bottom line While cutting alcohol completely out of your diet isn t necessarily the only way to lose weight, there are many improvements that can be made in your health journey by simply cutting back on the booze. You can enjoy a healthier body, improved sleep, better digestion, and fewer of those excess empty calories. And if you do plan to drink, enjoy a vodka or whiskey on the rocks -- and skip the soda! https://www.SentreHEART/health/alco jou-ejr-fqdyzt-loss#giimmyl-tmm-ekjfxv -loss When thinking about weight-loss, one often has an ideal body weight in mind or an ultimate weight-loss goal. It s very common for people to think that unless they lose dozens of pounds, they will not be any healthier. This is a misconception. Studies have shown that health benefits resulting from weight-loss are evident with a weight reduction as low as 5-10 percent. This means that an individual that weighs 200 pounds will benefit greatly from losing 10 to 20 pounds. A 5-10 percent weight-loss can result in: A five point increase in HDL cholesterol. Decrease triglycerides by an average of 40 mg/dl Decrease in blood pressure, both systolic and diastolic, by 5 mmHg on average. Decrease HgB A1C by half a point on average Significant decrease in insulin levels May improve sleep apnea and sometimes if the apnea was not very severe, one can be weaned from the CPAP breathing machine Decrease in levels of inflammatory substances circulating in the blood drop significantly and therefore the risk of vascular damage is reduced as well Foods that fight inflammation November 30, 2019 Doctors are learning that one of the best ways to reduce inflammation lies not in the medicine cabinet, but in the refrigerator. By following an anti-inflammatory diet you can fight off inflammation for good. What does an anti-inflammatory diet do? Your immune system becomes activated when your body recognizes anything that is foreign--such as an invading microbe, plant pollen, or chemical. This often triggers a process called inflammation. Intermittent bouts of inflammation directed at truly threatening invaders protect your health. However, sometimes inflammation persists, day in and day out, even when you are not threatened by a foreign invader. That's when inflammation can become your enemy. Many major diseases that plague us--including cancer, heart disease, diabetes, arthritis, depression, and Alzheimer's--have been linked to chronic inflammation. One of the most powerful tools to combat inflammation comes not from the pharmacy, but from the grocery store. Many experimental studies have shown that components of foods or beverages may have anti-inflammatory effects, says Dr. José Servin, professor of nutrition and epidemiology in the Department of Nutrition at the [employer]. Choose the right anti-inflammatory foods, and you may be able to reduce your risk of illness. Consistently pick the wrong ones, and you could accelerate the inflammatory disease process. Get simple tips to fight inflammation and stay healthy -- from [facility] experts. Protect yourself from the damage of chronic inflammation Click here to learn more Foods that cause inflammation Try to avoid or limit these foods as much as possible: refined carbohydrates, such as white bread and pastries New Zealander fries and other fried foods soda and other sugar-sweetened beverages red meat (burgers, steaks) and processed meat (hot dogs, sausage) margarine, shortening, and lard The health risks of inflammatory foods Not surprisingly, the same foods on an inflammation diet are generally considered bad for our health, including sodas and refined carbohydrates, as well as red meat and processed meats. Some of the foods that have been associated with an increased risk for chronic diseases such as type 2 diabetes and heart disease are also associated with excess inflammation, Dr. Servin says. It's not surprising, since inflammation is an important underlying mechanism for the development of these diseases. Unhealthy foods also contribute to weight gain, which is itself a risk factor for inflammation. Yet in several studies, even after researchers took obesity into account, the link between foods and inflammation remained, which suggests weight gain isn't the sole auto transport driver. Some of the food components or ingredients may have independent effects on inflammation over and above increased caloric intake, Dr. Servin says. Anti-inflammatory foods An anti-inflammatory diet should include these foods: tomatoes olive oil green leafy vegetables, such as spinach, kale, and collards nuts like almonds and walnuts fatty fish like salmon, mackerel, tuna, and sardines fruits such as strawberries, blueberries, cherries, and oranges Benefits of anti-inflammatory foods On the flip side are beverages and foods that reduce inflammation, and with it, chronic disease, says Dr. Servin. He notes in particular fruits and vegetables such as blueberries, apples, and leafy greens that are high in natural antioxidants and polyphenols--protective compounds found in plants. Studies have also associated nuts with reduced markers of inflammation and a lower risk of cardiovascular disease and diabetes. Coffee, which contains polyphenols and other anti-inflammatory compounds, may protect against inflammation, as well. Anti-inflammatory diet To reduce levels of inflammation, aim for an overall healthy diet. If you're looking for an eating plan that closely follows the tenets of anti-inflammatory eating, consider the Mediterranean diet, which is high in fruits, vegetables, nuts, whole grains, fish, and healthy oils. In addition to lowering inflammation, a more natural, less processed diet can have noticeable effects on your physical and emotional health. A healthy diet is beneficial not only for reducing the risk of chronic diseases, but also for improving mood and overall quality of life, Dr. Servin says. documented in this encounter [facility] 08-29-2023 History of Present illness Narrative Images from the original note were not included. Some documentation from previous visit of 07/12/2023 was copied and pasted, documentation has been reviewed and edited as necessary for today's visit. Patient Summary: Chika is a 52 year old Female who presents for follow-up evaluation of obesity/weight management to treat and prevent related co-morbidities. In our previous visits we have discussed lifestyle intervention including a nutrition recommendations and physical activity optimization. Her last office visit was 7 weeks ago. Assessment/plan from last visit: -Discussed adding protein shake for breakfast- eliminating yogurt - increase protein intake - Has sleep consult with Tracey Goodman - continue whole foods, low carb, high protein - Continue Metformin and zepbound 5mg dose was previously sent will send 7.5mg dose to [facility] today for July filling - continue Lipitor - continue Prilosec -Continue vit D supplementation Interval History PT specifies the following items as new or significant updates since the last appointment: -Feeling great, happy still losing despite not having kitchen (remodel) - trying to make sure she is getting protein during the day - Allergic to Whey- needs to find protein drink - going three weeks btwn doses- currently on 5mg - no nausea or side effects - no food noise - Happy that she is focusing on healthy food. Weight loss since last vist: 9 lb Total 19 lb - Last Wt 08/30/23 : 215 lb 07/12/23 ; 224 lb STARTING WEIGHT 05/30/23 : 234 lb (106.1 kg) 5% weight loss = 218 lbs, 10% weight loss = 206 lbs Anti-obesity medications: Tirzepatide (Zepbound). Benefit:decreased food noise , decreased appetite, Adverse effects: none Anti-obesity medications: Metformin. Benefit:elevated insulin Adverse effects: none Weight promoting medications: Inhaled corticosteroid Previous Diet (initial appointment): Wakes up: 5:30am- black coffee - drinks until lunch time Breakfast- 9am- Della cottage cheese pineapple and harley seeds, pea protein powder Lunch- seed 70cal nhi killer- Rotisserie chicken, garlic coffee Edamame, grapes (10) Dinner- Bonza chickpea pasta, chicken pasta, pepper, with veggies or schezwan chicken with white rice. Red cabbage with rice vinegar Snacks- sometimes chips, beef stick, cheese, Diet/Nutrition overview: Fluids: water (80-120oz) , black coffee 6cups Quality of diet: 24hr recall suggests in between diet. Characterization of diet:Structured. Sleeve Setter Safety Stitch of impaired eating habits:excessive hunger, emotion, and stress Eating Disorder no Preferred foods: Cravings: salty Nutrition Now: about the same B- Oikos triple zero - takes her all morning to eat it L- salad, rotissere chicken, [employer] avocado dressing D- meat and vegetable (broccoli), Dietary changes: Eating 3 meals a day, including breakfast Increasing water intake Controlling portions Identify hunger and satiety cues Increasing protein Reducing carbohydrates Current Barriers: inadequate sleep duration/QUALITY Exercise: 3-4 days per week, spin, core and more, weights, Stress: stable Sleep: stable but up multiple times 8 hours. LITO YES ; CPAP yes Estimated Creatinine Clearance: 118.6 mL/min (based on SCr of 0.7 mg/dL). PAST MEDICAL HISTORY Diagnosis Date Abnormal glandular Papanicolaou smear of cervix Abn. Pap smear (cervix) Acute gastritis without mention of hemorrhage Allergic rhinitis, seasonal Anxiety 07/07/2012 Chronic tension-type headache, intractable 03/17/2016 Depression 07/07/2012 Encounter for routine gynecological examination 01/21/[address] 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 Well adult exam 01/21/2020 Last done 10/26/21 Current Outpatient Medications Medication Sig Dispense Refill metFORMIN ER (GLUCOPHAGE XR) 500 mg 24 hr tablet Take 2 tablets by mouth daily with dinner. 180 tablet 1 tirzepatide, weight loss (ZEPBOUND) 7.5 mg/0.5 mL pen injector Inject 7.5 mg subcutaneously one time a week. Patient should start on August 03, 2023. 2 mL 0 Norethindrone, Contraceptive, 0.35 mg tablet Take 1 tablet by mouth once daily. tirzepatide, weight loss (ZEPBOUND) 2.5 mg/0.5 mL pen injector Inject 2.5 mg subcutaneously one time a week. 2 mL 0 tirzepatide, weight loss (ZEPBOUND) 5 mg/0.5 mL pen injector Inject 5 mg subcutaneously one time a week. Patient should start on June 27, 2023. 2 mL 0 omeprazole (PRILOSEC) 40 mg capsule Take 1 capsule by mouth once daily. 90 capsule 1 ADELINA 0.0375 mg/24 hr estradiol (ESTRACE) 0.01 % (0.1 mg/gram) vaginal cream atorvastatin (LIPITOR) 20 mg tablet Take 1 tablet by mouth daily at bedtime. For cholesterol. 90 tablet 1 fluticasone-salmeterol (ADVAIR DISKUS) 250-50 mcg/dose inhaler Inhale 1 Puff as instructed two times a day. Rinse and gargle mouth after use with water. 3 Each 1 albuterol HFA (VENTOLIN HFA) 90 mcg/actuation inhaler Inhale 2 Puffs as instructed every 4 hours as needed. 24 g 1 OTC PRODUCT once daily. Tumeric CHOLECALCIFEROL, VITAMIN D3, ORAL Take by mouth as directed. Combined with omega 3 DUPIXENT SYRINGE 300 mg/2 mL injection No current facility-administered medications for this visit. 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 Latest Ref Rng & Units 06/14/2023 CMP Sodium 136 - 144 mmol/L 141 Potassium 3.7 - 5.1 mmol/L 4.1 Chloride 97 - 105 mmol/L 106 CO2 22 - 30 mmol/L 24 Glucose 74 - 99 mg/dL 101 BUN 7 - 21 mg/dL 12 Creatinine 0.58 - 0.96 mg/dL 0.70 EGFR >=60 mL/min/1.73m 105 Protein, Total 6.3 - 8.0 g/dL 6.7 Albumin 3.9 - 4.9 g/dL 4.3 Calcium 8.5 - 10.2 mg/dL 9.4 Bilirubin, Total 0.2 - 1.3 mg/dL 0.3 AST 13 - 35 U/L 16 ALT 7 - 38 U/L 26 Alkaline Phosphatase 34 - 123 U/L 87 Cholesterol, Total (mg/dL) Date Value 04/18/2023 176 07/31/2018 177 Total Cholesterol, Nonfasting (mg/dL) Date Value 03/03/2021 195 HDL Cholesterol (mg/dL) Date Value 04/18/2023 41 07/31/2018 43 HDL Cholesterol, Nonfasting (mg/dL) Date Value 03/03/2021 40 LDL Cholesterol (mg/dL) Date Value 04/18/2023 116 07/31/2018 110 LDL Cholesterol, Nonfasting (mg/dL) Date Value 11/01/2022 115 03/03/2021 130 Triglyceride (mg/dL) Date Value 04/18/2023 95 07/31/2018 122 Triglycerides, Nonfasting (mg/dL) Date Value 03/03/2021 125 Latest Ref Rng & Units 06/14/2023 CBC WBC 3.70 - 11.00 k/uL 10.86 RBC 3.90 - 5.20 m/uL 4.46 Hemoglobin 11.5 - 15.5 g/dL 13.1 Hematocrit 36.0 - 46.0 % 40.5 MCV 80.0 - 100.0 fL 90.8 MCH 26.0 - 34.0 pg 29.4 MCHC 30.5 - 36.0 g/dL 32.3 RDW-CV 11.5 - 15.0 % 13.5 Platelet Count 150 - 400 k/uL 324 MPV 9.0 - 12.7 fL 10.6 Baso% % 0.7 Abs Neut (ANC) 1.45 - 7.50 k/uL 6.92 Abs Lymph 1.00 - 4.00 k/uL 2.89 Abs Meigs <0.87 k/uL 0.63 Abs Eosin <0.46 k/uL 0.31 Abs Baso <0.11 k/uL 0.08 NRBC /100 WBC 0.0 Vitamin D 25 Hydroxy Date Value Ref Range Status 04/18/2023 34.2 31.0 - 80.0 ng/mL Final Comment: Classification of 25 [place] Vitamin D status: Deficiency/Insufficiency: < or = 30 ng/ml. Sufficiency/Optimal Levels: 31-80 ng/mL Toxicity: > 100 ng/mL. Test performed by chemiluminescent immunoassay. 01/21/2020 24.8 (L) 31.0 - 80.0 ng/mL Final Comment: Classification of 25 [place] Vitamin D status: Insufficiency/Moderate Deficiency: < or = 30 ng/mL Sufficiency/Optimal Levels: 31 to 80 ng/mL Toxicity: > 100 ng/mL Test performed by chemiluminescent immunoassay. TSH Date Value 04/18/2023 1.460 mIU/L 05/03/2022 2.040 mIU/L 06/12/2020 2.680 uU/mL 04/14/2020 2.130 uU/mL ) Hemoglobin A1C (%) Date Value 04/18/2023 5.4 11/01/2022 5.2 05/03/2022 5.0 03/03/2021 5.1 01/21/2020 5.2 03/15/2018 4.8 Insulin Date Value Ref Range Status 06/14/2023 85.3 (H) 3.0 - 25.0 mU/L Final Assessment/Plan: Chika Good is a 52 year old yo with Class II obesity who presented today for follow up for supervised weight loss to treat and prevent related co-morbidities. 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) Insulin resistance (G47.33) LITO (obstructive sleep apnea) (E55.9) Vitamin D deficiency (K21.9) Gastroesophageal reflux disease without esophagitis (E78.00) Hypercholesteremia (E66.01, Z68.35) Class 2 severe obesity with serious comorbidity and body mass index (BMI) of 35.0 to 35.9 in adult, unspecified obesity type (HCC) - discussed adding OWYN vegan protein shake or similar for breakfast and consuming within 15-20min - discussed doing two protein shakes and adding more whole foods with lunch and then regular dinner to add more protein to day - reviewed MINIMUM protein 90g/day - continue vit D supplement - reviewed if meds taking longer to get ok to push out maybe 10 days so she is not without medications for prolonged periods - has follow up for CPAP/LITO 09/06/23 - continue with Whole foods, Low carb, High protein -Continue prilosec for GERD -Continue Lipitor for Hypercholesteremia Zepbound 10mg ordered (will need to mixing picker tender 7.5mg this week) - An overall goal of 150-200 minutes per week of exercise has been effective in weight loss and maintenance. Prescription instructions reviewed with patient as applicable. Potential red flag symptoms discussed with the patient. Reviewed appropriate action plan to take if red flag symptoms occur. Patient agreeable to treatment plan. Follow up in 6-8 weeks I spent a total of 35 minutes on the date of the service which included preparing to see the patient, [id number] patient care, completing clinical documentation, obtaining and/or reviewing separately obtained history, performing a medically appropriate examination, counseling and educating the patient/family/caregiver, and ordering medications, tests, or procedures. Kailyn Puckett MD, FACOG, MYRTLE documented in this encounter [facility] 08-12-2023 Telephone encounter Note Last received refill of medication 06/15/2023 60 tablets no refills. Has appt 08/28 for weight mgmt f/u with Dr Givens [facility] 08-12-2023 Miscellaneous Notes Last received refill of medication 06/15/2023 60 tablets no refills. Has appt 08/28 for weight mgmt f/u with Dr Givens documented in this encounter [facility] 07-12-2023 Instructions Kailyn Gill MD - 07/12/2023 1:12 PM EDT I would the insulin level to be < 10 and ideally < 5. Insulin is a hormone that's normally produced by your pancreas, which helps regulate blood sugar. Higher than normal insulin levels can be an indicator of insulin resistance. Hyperinsulinemia is most often caused by insulin resistance - a condition in which your body doesn't respond well to the effects of insulin. Your pancreas tries to compensate by making more insulin. Insulin resistance may eventually lead to the development of type 2 diabetes. A low-carb diet can have a positive effect on insulin levels. Exercise and physical activity in general improve insulin sensitivity, as does getting an adequate amount of good quality sleep. Eating regular meals that are nourishing and satisfying-as opposed to grazing all day-can also help promote healthy insulin levels. What are the symptoms of hyperinsulinemia? Although hyperinsulinemia often has little clear indicator, hyperinsulinemia symptoms may include: Weight gain Cravings for sugar Intense hunger Feeling frequently hungry Difficulty concentrating Feeling anxious or panicky Lacking focus or motivation Fatigue Hyperinsulinemia is often associated with type 2 diabetes , but it isn t diabetes as such. Hyperinsulinemia means that the amount of insulin in the blood is higher than considered normal amongst people without diabetes. When a person has hyperinsulinemia they have a problem controlling blood sugar, meaning that the pancreas has to secrete larger amounts of insulin to keep blood sugar at a normal level. How is hyperinsulinemia caused? Insulin resistance is the primary cause of hyperinsulinemia, with the pancreas compensating by producing more insulin. Insulin resistance of this type can lead to the development of type 2 diabetes, which occurs when the pancreas cannot secrete the insulin required to maintain normal blood glucose levels. In more rare cases, hyperinsulinemia may be caused by a tumour of the insulin-producing cells of the pancreas (insulinoma). It may also be caused by excessive numbers of insulin-producing cells in the pancreas (nesidioblastosis). What are the risks of having hyperinsulinemia? There are a number of risks involved in having hyperinsulinemia which include: Higher triglyceride levels High uric acid Hardening of the arteries (artherosclerosis) Weight gain Hypertension Type 2 diabetes The sooner hyperinsulinemia is diagnosed, which may be in the form of pre-diabetes or type 2 diabetes, the sooner the risks or extent of the above can be reduced. How is hyperinsulinemia treated? Medical treatment, in the form of diabetes medication , may help to relieve the symptoms of hyperinsulinemia. The root cause of the problem can be targeted and treated by diet, exercise and other lifestyle changes In the rarer case of insulinoma, tumours in the pancreas, the treatment will likely be surgery to remove the tumours. [email or web address] [email or web address]#symptoms How to Lower Your Insulin Levels ([employer]) Disrupted Sleep Linked to Weight Gain - YouTube How To Improve Your Sleep To Impact Your Weight Loss: [email or web address] Weight Loss and Sleep Updated December 21, 2019 Written by Robert Lomax Medically Reviewed by Erica Jaramillo In This Article The Connection Between Sleep and Weight Sleep and Obesity Sleep During Weight Loss Maintaining a Healthy Relationship With Your Body Losing weight is challenging, and keeping weight off can be just as difficult. Although the medical community is still untangling the complicated relationship between sleep and body weight, several potential links have emerged that highlight the potential weight loss benefits of getting a good night s rest and the negative health impacts of sleep deprivation. The Connection Between Sleep and Weight Over the past several decades, the amount of time that Americans spend sleeping has steadily decreased1, as has the self-reported quality of that sleep. For much of the same time period, the average body mass index (BMI) of Americans increased2, reflecting a trend toward higher body weights and elevated rates of obesity. In response to these trends, many researchers began to hypothesize about potential connections between weight and sleep. Numerous studies have suggested that restricted sleep and poor sleep quality may lead to metabolic disorders, weight gain, and an increased risk of obesity and other chronic health conditions. While there is continuing debate within the medical community about the exact nature of this relationship, the existing research points to a positive correlation between good sleep and healthy body weight. There remains much to be discovered about the intricate details of how sleep and weight are connected. Several hypotheses offer paths for additional research with the hope that increasing our understanding of the relationship between weight and sleep will lead to reduced obesity and better weight-loss methods. Can Lack of Sleep Increase Appetite? One common hypothesis about the connection between weight and sleep involves how sleep affects appetite. While we often think of appetite as simply a matter of stomach grumbling, it s actually controlled by neurotransmitters, which are chemical messengers that allow neurons (nerve cells) to communicate with one another. The neurotransmitters ghrelin and leptin are thought to be central to appetite. Ghrelin promotes hunger, and leptin contributes to feeling full. The body naturally increases and decreases the levels of these neurotransmitters throughout the day, signaling the need to consume calories3. A lack of sleep may affect the body s regulation of these neurotransmitters. In one study, men who got 4 hours of sleep had increased ghrelin and decreased leptin compared to those who got 10 hours of sleep. This dysregulation of ghrelin and leptin may lead to increased appetite and diminished feelings of fullness in people who are sleep deprived. In addition, several studies have also indicated that sleep deprivation affects food preferences. Sleep-deprived individuals tend to choose foods that are high in calories and carbohydrates4. Other hypotheses regarding the connection between sleep and increased appetite involve the body s endocannabinoid system5 and orexin6, a neurotransmitter targeted by some sleep aids. Many researchers believe that the connection between sleep and dysregulation of neurotransmitters is complicated and additional studies are needed to further understand the neurobiological relationship. Does Sleep Increase Metabolism? Metabolism7 is a chemical process in which the body converts what we eat and drink into energy needed to survive. All of our collective activities, from breathing to exercising and everything in between, is part of metabolism. While activities like exercise can temporarily increase metabolism, sleep cannot8. Metabolism actually slows about 15% during sleep, reaching its lowest level in the morning 9. In fact, many studies have shown that sleep deprivation (whether due to self-induction, insomnia, untreated sleep apnea, or other sleep disorders) commonly leads to metabolic [id number]. Poor sleep is associated with increased oxidative stress, glucose (blood sugar) intolerance (a precursor to diabetes), and insulin resistance. Extra time spent awake may increase the opportunities to eat11, and sleeping less may disrupt circadian rhythms, leading to weight gain12. How is Sleep Related to Physical Activity? Losing sleep can result in having less energy for exercise and physical activity. Feeling tired can also make sports and exercising less safe, especially activities like weightlifting and or those requiring balance. While researchers are still working to understand this [id number], it s well known that exercise is essential to maintaining weight loss and overall health. Getting regular exercise can improve sleep quality, especially if that exercise involves natural light. While even taking a short walk during the day may help improve sleep, more activity can have a more dramatic impact. Engaging in at least 150 minutes of moderate-intensity or 75 minutes of high-intensity exercise per week can improve daytime concentration and decrease daytime [id number]. Sleep and Obesity In children and adolescents, the link between not getting enough sleep and an increased risk of obesity is well-established, although the reason for this link is still being debated. Insufficient sleep in children can lead to metabolic irregularities as discussed earlier, skipping breakfast in the mornings, and increased intake of sweet, salty, fatty, and starchy foods15. In adults, the research is less clear. While a large analysis of past studies suggests that people getting less than 6 hours of sleep at night are more likely to be diagnosed as obese16, it s challenging for these studies to determine cause and effect. Obesity itself can increase the risk of developing conditions that interfere with sleep, like sleep apnea and depression. It s not clear if getting less sleep is the cause of obesity in these studies, if obesity is causing the participants to get less sleep, or perhaps a mix of both. Even though more studies are needed to understand this connection, experts encourage improving sleep quality when treating obesity in adults. Sleep During Weight Loss Getting adequate, quality sleep is an important part of a healthy weight loss plan. Most importantly, research has shown that losing sleep while dieting can reduce the amount of weight lost17 and encourage [id number]. Tips for Quality Sleep During Weight Loss There are many ways to improve sleep. Here are a few research-based tips for sleeping better when you re trying to lose weight: Keep a regular sleep schedule: Big swings in your sleep schedule or trying to catch up on sleep after a week of late nights can cause changes in metabolism and reduce insulin [id number], making it easier for blood sugar to be elevated. Sleep in a dark room: Exposure to artificial light while sleeping, such as a TV or bedside lamp, is associated with an increased risk of weight gain and qseyahp83. Don t eat right before bed: Eating late may reduce the success of weight loss [id number] Reduce Stress: Chronic stress may lead to poor sleep and weight gain in several ways, including eating to cope with negative [id number] Be an Early Bird: People with late bedtimes may consume more calories and be at a higher risk for weight gain23. Early birds may be more likely to maintain weight loss when compared to night owls24. Maintaining a Healthy Relationship With Your Body Deciding if you should attempt to change your body weight is a personal decision best made with the guidance of your doctor. Don t take all the health and weight loss information you read [id number] at face value. Weight loss isn t appropriate for everyone and doesn t always mean better health. Remember that health is a lifelong journey that includes not only healthy habits but also having a healthy relationship with your body. If you re considering weight loss, the National Institutes of Health offers a helpful resource for choosing a safe weight loss [id number] Source National [place] of Diabetes and Digestive and Kidney DiseasesNIDDK research creates knowledge about and treatments for diseases that are among the most chronic, costly, and consequential for patients, their families, and the Nation. niddk.nih.gov . https://www.sleepfoundation.org/physic al-health/spkxpq-heqv-aoq-sleep Sleep Hygiene Tips Set a sleep schedule and stick to it. Try to go to bed at night and awaken in the morning around the same times, even on weekends. This helps to regulate the body s sleep cycles and circadian rhythms. Try to exercise at some point in the day but avoid vigorous activity (running, fast dancing, high-intensity interval training) one hour before bedtime. Regular exercise of adequate intensity can promote muscle relaxation and deeper sleep later on. If you re in the habit of napping during the day, aim for a 10-20 minute power nap to achieve the goals of reduced fatigue and increased alertness. It s best to take naps in the early afternoon to avoid interference with nighttime sleep. Try to avoid large meals, heavy snacking,or alcohol 2-3 hours before bed. If you are sensitive to caffeine, try to avoid drinking caffeinated beverages 4-6 hours before bedtime. Stop using electronic devices an hour before bed, especially those emitting blue light such as smartphones, tablets, and televisions. Schedule before-bed activities to signal that you are winding down, such as changing into pajamas and brushing teeth. Create a quiet, dark, relaxing environment in your bedroom. Dim the lights and turn off your cell phone s sound and vibration modes if possible. Ensure a comfortable temperature, as feeling too hot or cold can disrupt sleep. Create calming bedtime rituals such as practicing deep breathing exercises, doing light yoga stretches, or listening to soothing relaxing music. If you awaken and can t return to sleep, don t stay in bed. Get up and do quiet relaxing activities, such as reading, until you feel tired enough to fall back asleep. Sleep Apnea and Weight Gain: 3 Facts You Should Know By Jo Corral, MPH, RD Does sleep apnea cause weight gain? According to experts, sleep apnea affects more than your sleep. It may also cause weight gain and prevent weight loss. Sleep apnea is a severe sleep disorder that causes a disrupted breathing pattern during sleep. Signs and symptoms of the condition include snoring and gasping for air while sleeping. According to [facility], sleep apnea affects 25% of men and almost 10% of women. But can the disorder cause weight gain? Here, experts offer their insights about the possible relationship between sleep apnea and weight gain. Sleep Restriction Can Increase Your Appetite One hypothesis about how sleep apnea can affect weight gain relies on two hormones called ghrelin and leptin. Leptin is meant to decrease your appetite, whereas ghrelin is intended to increase it. Sleep apnea patients have significantly higher ghrelin levels, the hormone that makes you feel hungry, and significantly lower leptin levels, the hormone that makes you feel full, Carla Murphy, Ph.D., lead sleep specialist and neuroscientist at [facility], tells [employer] [facility]. This means that individuals with obstructive sleep apnea are more likely to feel hungry and consume more calories. A 2019 article published by [employer] notes that leptin resistance is often observed in obese individuals, which can lead to the intake of excessive calories and difficulties with weight loss. In addition, decreased ghrelin levels are commonly seen in individuals who are obese. However, the association between leptin and ghrelin levels regarding sleep apnea and weight gain in humans is still being studied. Sleep Loss Can Hinder Your Ability to Lose Weight According to the Centers for Disease Control and Prevention (CDC), adults between the ages of 18 and 60 need at least seven hours of sleep per night. However, if you re sleep-deprived, this may affect your ability to lose weight. Sleep loss from sleep apnea can also reduce your body's ability to lose weight efficiently. Studies have shown that even when placed on low-calorie diets, individuals that are sleep deprived lost 55% less weight from fat than individuals that were on the same diet but had sufficient sleep, Jeffrey says. According to a 2019 study published in the International Journal of Obesity, inconsistent sleep patterns or a shortened sleep duration can lower the likelihood of successful weight loss. Additionally, lack of sleep can lead to diminished or lack of impulse control, junk food cravings, and being too tired to exercise, which can prevent you from being motivated to lose weight. Weight Gain Can Increase Your Chances of Sleep Apnea Additionally, being obese can put you at a higher risk of developing sleep apnea. As the body gains weight, more tissue can be found on or around the throat. This makes apnea events more common. Because the extra weight makes it more likely, the tissues in the soft palate will collapse, causing an apnea event, Regis Thompson DDS, a sleep specialist at [facility], tells [facility]. According to a 2017 article published in Anesthesia and Analgesia, weight gain can cause an increase in fat distribution in the neck and waist specifically, which can subsequently contribute to the development of sleep apnea. In addition, [facility] observes that an increased neck circumference can narrow the airway, which can cause snoring and sleep apnea. https://www.StartBull.com/boqwgny-qu-mupd/ sleep-apnea/hpkns-vqati-qym-weight-gai n Educational Podcasts: The Dr. Ozuna Show- Real Conversations about Health and Weight * November 29, 2022 what you need to know about Carbohydrates and Weight *November 08, 2022 Protein why we need it and how to eat more Protein *October 18, 2022 Menopause and Weight Gain- All the Details with Dr. Tracey Lauren *September 27, 2022 The Science Behind Ultra Processed Food and Weight Gain *July 12, 2022 Effects of sleep and Stress of Weight and Health with Dr. Yahaira Nair-Withdoe, * July 05, 2022 Recognizing and Resolving Emotional Eating with Dr. Andrews Obesity: A Disease *July 05, 2022 Episode 80 Clinical conversations: The Role of Physical Activity in Weight Management * October 15, 2022 Episode 84 Clinical Conversations: NAFLD, The [place] Disease of Metabolic Syndrome *October 142019 Episode 20 Article Reviews: The Role Ultra Processed Diets Play in Weight Gain *September 26, 2019 Episode 21 Clinical Conversations: Breaking Weight Plateaus Creating a Mindful Eating Environment: 10 Mindless Eating Solutions If you're looking for easier ways to make healthy changes to your diet and lifestyle, consider these simple mindless eating solutions for staying on-track with nutrition: Serve Salad and Vegetables First. Before bringing out your main dish, serve salad and vegetables first to ensure you're eating enough of this important food group. This strategy will also help you eat less of the rest of your dish which is likely higher in calories, etc. Serve Your [facility] on the Stove or Counter. Studies show that we're likely to eat less if our food is placed on the stove or counter rather than right in front of us. Eat on Smaller Plates. Similar to the strategy mentioned above, studies show that you're likely to consume less food if you're eating from a smaller plate. This is likely due to the increase of smaller portion sizes. Turn off Your Television. Watching television as you eat can be highly distracting, and it affects your ability to eat mindfully. For example: you're less likely to notice when you're full, so you might consume excess calories. Keep Mostly Water On-hand. Calories from drinks can add up quickly, especially in fruit juices, alcohol and soft drinks. By minimizing the amounts of those drinks on-hand, you're more likely to consume water when you're thirsty - and water has amazing health benefits! Keep Your Kitchen Organized. An organized refrigerator, counter and cabinet space makes you more likely to find and choose the foods which are healthiest for you. On the contrary, a messy kitchen space may make you more apt to grab the first item you see. Pre-cut Your Fruits and Vegetables. Let's admit it: We're more likely to put off eating produce if we have to go through the burden of cutting it first. Pre-cut fruits and vegetables will eliminate this extra step. Have at Least Six Single Servings of Lean Protein On-hand. This includes lean meats such as turkey and chicken, yogurt, eggs, nuts, beans and legumes. By having plenty of lean protein on-hand, you can better manage your appetite and hunger levels. Keep All Snack Foods in One Inconvenient Cupboard. You're less likely to reach for unhealthy snack foods if they're not all gazing up at you from plain sight! Keep Only a Fruit Bowl on Your Counter. This way, if you're one to grab foods based off of their availability, you'll reach for healthier fruits rather than less healthy snack foods. https://www.obesityaction.org/communit y/news/community-news/tofcht-c-bapgxcq -eating-environment/ The Role of Exercise in Weight Management No one can deny the psychological and physical benefits of exercise. Regular physical exercise aids in stress reduction, blood sugar control, cholesterol reduction, and improved sleep. It s also beneficial for weight control. both aerobic and strength training is beneficial for weight control. The ACSM ([place] [employer]) advises 200-300 minutes of moderate-intensity exercise to lose weight and sustain the loss. Aerobic exercise (walking, jogging, swimming, cycling) uses glucose (from glycogen) and triglycerides (from fat in storage) for energy. Strength or resistance training helps build muscle, which is more metabolic at rest than fat tissue. Both are beneficial to weight management. According to the 2018 Physical Activity Guidelines for Americans, Americans are advised to do a minimum of 30 minutes of physical activity most days of the week. This equates to 150 minutes of moderate activity or 75 minutes of vigorous exercise per week for general health. This should include both aerobic and strength training exercises. However, without calorie restriction, this isn t enough for weight loss or weight maintenance in most people. Currently, 53 % of Americans over 18 do adequate aerobic exercise while only 23% get both aerobic and muscle-strengthening activity. Most [place] adults are still too sedentary. A sedentary lifestyle is associated with cardiovascular disease, type 2 diabetes, and certain types of cancer including endometrial, colon, and lung cancer. Which types of exercise aid in weight control? How much should I do? In addition to caloric restriction, both aerobic and strength training is beneficial for weight control. The ACSM ([place] [employer]) advises 200-300 minutes of moderate-intensity exercise to lose weight and sustain the loss.Moderate-intensity exercises include brisk walking, jogging, using a rowing machine, or doing a 50-60 minute dance class. To senior sourcing manager the level of intensity you should aim for, think of it this way: a person should be able to carry a conversation but not be able to sing. HIIT (high-intensity interval training) is one method of exercise that may be beneficial to those who are trying to lose weight and are short on time. One way to do HIIT involves doing high-intensity exercise (such as sprinting) for 60 seconds followed by 60 seconds of low-intensity exercise (walking) or rest. Exercises are repeated 8 times with rest for a few minutes, then repeated until 30 minutes of exercise is completed. A meta-analysis of 39 studies with 671 participants showed that HIIT reduced total, abdominal, and visceral fat mass in both men and women aged 38.8 +/- 14.4. Running was more effective than cycling in lowering total and visceral fat mass while low-intensity exercise (like walking) also resulted in abdominal and visceral fat loss. The latter took more time. HIIT training is typically done a few days a week. Individuals are advised to choose less intense exercises in between HIIT training days. More muscle matters! One of the biggest reasons (no pun intended) that adults gain weight over time is due to muscle loss. A comparison study of various methods of exercise was performed with older subjects with obesity. Subjects got randomly assigned to a weight control program along with one of four programs: aerobic training, resistance training, combined aerobic and resistance training, or a control group (no treatment). The initial outcome was the change in Physical Performance Test Scores from the start to 6 months after the study began, while secondary outcomes included changes in body composition, bone mineral density, and physical function. There were 141 total subjects that finished the study. Physical Performance Test score was higher in the combination group than in the aerobic and resistance groups. Bodyweight decreased in all exercise groups (9%) but not in the control group. Lean mass and bone density were maintained the most in the combination and resistance groups. Strength also increased in the resistance training and combination training groups. As muscle is more metabolic than fat, maintaining muscle mass is important to long-term weight control. It s important for individuals who have been sedentary to check with their doctors before embarking on a new exercise program. While HIIT training may be appropriate for younger individuals and/or those without comorbidities like cardiovascular disease, it s important to find an exercise that s enjoyable. Physical activities could include: Multiple bouts of moderately paced walking a few times per day. Use of an elliptical or rowing machine or a water aerobics class A walking video to use at home Playing tennis or pickleball Trying a regular or stationary bike or a spin class Joining a kickboxing or Fly class at a gym or rec center Resistance training may include: Use of stretch bands Multiple reps of small hand weights Use of nautilus machines A pilates class (in person or at home) HOW MUCH PHYSICAL ACTIVITY IS ENOUGH? RECOMMENDATIONS FOR THE WEEK https://blog.Handipoints.org Before we can begin to answer the question of how much activity is enough, we need to consider what fitness means. Fitness is synonymous with health, our physical condition and even our ability to complete the tasks required for our ongoing survival (and perpetuation of the species). Our modernized society has overwhelmingly reduced the tasks and activities we need to accomplish to survive, but the general lack of movement has negatively impacted our health and physical condition. Regular physical activity, even in small amounts, can help prevent, treat, and sometimes even alleviate some of the most common chronic conditions we encounter, including high blood pressure, cardiovascular disease, stroke, obesity, type 2 diabetes, osteoporosis, depression, and some cancers (1,2). WEEKLY PHYSICAL ACTIVITY REQUIREMENTS FOR FITNESS Guidelines recommend at least 150 minutes of moderate-intensity cardiorespiratory exercise, 75 minutes of vigorous-intensity, or a combination of moderate- and vigorous-intensity exercise per week. The weekly recommendation for resistance training is 2 or more days per week with exercises for all the major muscle groups (minimum of 1 set of 8-12 repetitions for each muscle group). Flexibility and neuromotor exercises (balance, agility, coordination) are also recommended at least twice per week. The nath phrase to note is at least with more benefits being realized with more activity. But what if your clients aren t quite ready to tackle these recommendations? When developing exercise programs for a previously sedentary individual, meet them where their abilities are now and help them find ways to increase their activity levels. Those 150 minutes of moderate-intensity cardiorespiratory activity are to be spread out over the week, ideally 30 minutes a day, 5 times per week. This data is from two of the most widely recognized activity guideline reports for improving physical fitness include Quantity and Quality of Exercise for Developing and Maintaining Cardiorespiratory, Musculoskeletal, and Neuromotor Fitness in Apparently Healthy Adults: Guidance for Prescribing Exercise from the [place] [employer] (2) and the Physical Activity Guidelines for Americans from the U.S. Department of Health and Human Services (3). Consider that those 30 minutes can be further broken down into 10 minute bouts of activity. Some individuals may even need to start with as little as two minutes of walking and build their way up to 10 minutes over days, or even weeks. The goal is to motivate them to increase their activity and succeed. Even if more activity is better, a little activity beats none at all. And walking is really great for weight loss too. Don t discount the importance of also increasing unstructured non-exercise activity thermogenesis (NEAT) (4). These are the activities beyond sleeping, eating and intentional exercise that include daily motions such as standing, walking, using the stairs, fidgeting, yard work, and multiple other movements we make throughout the day. NEAT is not to be confused with movements that have measurable metabolic equivalents. Unstructured physical activity is the foundation that can help people realize that just being active, rather than sedentary, can impact their overall, long-term health. Understandably, goals need to be explored to discover just how much activity may be needed and over what associated time frame in order to reach those goals. For someone wanting to adopt a healthier lifestyle, finding enjoyable activities with a realistic schedule are essential. Start with a conservative approach where the individual will be successful, safe, and comfortable. Then encourage them to improve the return on their results with a mix of higher frequencies, durations, and intensities of activity. Sources: AMNA Byrd, DAPHNEY Contreras, BG Canelo. [facility] Essentials of Personal Fitness Training 4th ed. MD Jeffery: Jen [employer] Mar[employer]; 2012. [place] [employer]. Quantity and quality of exercise for developing and maintaining cardiorespiratory, musculoskeletal, and neuromotor fitness in apparently healthy adults: Guidance for prescribing exercise. Medicine and Science in Sports and Exercise 2011;43(7):0960-9247. U.S. Department of Health and Human Services. 2008 Physical activity guidelines for Americans. http://www.health.gov/paguidelines/alisha delines/default.aspx (accessed August 15, 2012). KANIKA Galeano. Nonexercise activity thermogenesis - liberating the life-force. Journal of Internal Medicine, 2007;262: 273-287. documented in this encounter [facility] 07-12-2023 History of Present illness Narrative Images from the original note were not included. Some documentation from previous visit of 05/30/2023 was copied and pasted, documentation has been reviewed and edited as necessary for today's visit. Patient Summary: Chika is a 52 year old Female who presents for follow-up evaluation of obesity/weight management to treat and prevent related co-morbidities. In our previous visits we have discussed lifestyle intervention including a nutrition recommendations and physical activity optimization. Her last office visit was 6 weeks ago. Assessment/plan from last visit: -Saw Project Coordinator at [facility]- may reach out again but will start with High protein low CHO- reviewed plan with patient -ZEPBOUND ordered - Reviewed Sleep medicine - does not wear CPAP b/c air leaks and makes high pitched sound- feels airway close at night. -Check insulin Level fasting - ordered -Continue Lipitor -GERD- continue Prilosec -Low Vit D continue Supplementation Interval History PT specifies the following items as new or significant updates since the last appointment: - only been on medication about 2-3 weeks, doing well , has responded well. No side effects. - decreased appetite - no food noise - decreased Wine intake - didn't realize how many carbs she was consuming - getting regular exercise - has upcoming appt with sleep medicine to have CPAP evaluated Proud- of awareness for nutrition , was eating more carbs , proud of weight loss Goal- work on protein minimum 90 would like to get 100g Weight loss since last vist: 10 lb - Last Wt 07/12/23 ; 224 lb STARTING WEIGHT 05/30/23 : 234 lb (106.1 kg) 5% weight loss = 218 lbs, 10% weight loss = 206 lbs Anti-obesity medications: Tirzepatide (Zepbound). Benefit:decreased food noise Adverse effects: none Anti-obesity medications: Metformin. Benefit:elevated insulin Adverse effects: none Weight promoting medications: Inhaled corticosteroid Previous Diet (initial appointment): Wakes up: 5:30am- black coffee - drinks until lunch time Breakfast- 9am- Della cottage cheese pineapple and harley seeds, pea protein powder Lunch- seed 70cal nhi killer- Rotisserie chicken, garlic coffee Edamame, grapes (10) Dinner- Bonza chickpea pasta, chicken pasta, pepper, with veggies or schezwan chicken with white rice. Red cabbage with rice vinegar Snacks- sometimes chips, beef stick, cheese, Diet/Nutrition overview: Fluids: water (80-120oz) , black coffee 6cups Quality of diet: 24hr recall suggests in between diet. Characterization of diet:Structured. Sleeve Setter Safety Stitch of impaired eating habits:excessive hunger, emotion, and stress Eating Disorder no Preferred foods: Cravings: salty Nutrition Now: B- Oikos triple zero L- salad, rotissere chicken, primal kitchen avocado dressing D- meat and vegetable (broccoli), sweet Dietary changes: Eating 3 meals a day, including breakfast Increasing water intake Controlling portions Identify hunger and satiety cues Increasing protein Reducing carbohydrates Current Barriers: inadequate sleep duration/QUALITY Exercise: 3-4 days per week, spin, core and more, weights, Stress: stable Sleep: stable but up multiple times 8 hours. LITO YES ; CPAP yes but does not wear it- air leaks Estimated Creatinine Clearance: 121.3 mL/min (based on SCr of 0.7 mg/dL). PAST MEDICAL HISTORY Diagnosis Date Abnormal glandular Papanicolaou smear of cervix Abn. Pap smear (cervix) Acute gastritis without mention of hemorrhage Allergic rhinitis, seasonal Anxiety 07/07/2012 Chronic tension-type headache, intractable 03/17/2016 Depression 07/07/2012 Encounter for routine gynecological examination 01/21/[address] 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 Well adult exam 01/21/2020 Last done 10/26/21 Current Outpatient Medications Medication Sig Dispense Refill metFORMIN ER (GLUCOPHAGE XR) 500 mg 24 hr tablet Take 2 tablets by mouth daily with dinner. 60 tablet 1 Norethindrone, Contraceptive, 0.35 mg tablet Take 1 tablet by mouth once daily. tirzepatide, weight loss (ZEPBOUND) 2.5 mg/0.5 mL pen injector Inject 2.5 mg subcutaneously one time a week. 2 mL 0 tirzepatide, weight loss (ZEPBOUND) 5 mg/0.5 mL pen injector Inject 5 mg subcutaneously one time a week. Patient should start on June 27, 2023. 2 mL 0 omeprazole (PRILOSEC) 40 mg capsule Take 1 capsule by mouth once daily. 90 capsule 1 ADELINA 0.0375 mg/24 hr estradiol (ESTRACE) 0.01 % (0.1 mg/gram) vaginal cream atorvastatin (LIPITOR) 20 mg tablet Take 1 tablet by mouth daily at bedtime. For cholesterol. 90 tablet 1 fluticasone-salmeterol (ADVAIR DISKUS) 250-50 mcg/dose inhaler Inhale 1 Puff as instructed two times a day. Rinse and gargle mouth after use with water. 3 Each 1 albuterol HFA (VENTOLIN HFA) 90 mcg/actuation inhaler Inhale 2 Puffs as instructed every 4 hours as needed. 24 g 1 OTC PRODUCT once daily. Tumeric CHOLECALCIFEROL, VITAMIN D3, ORAL Take by mouth as directed. Combined with omega 3 DUPIXENT SYRINGE 300 mg/2 mL injection No current facility-administered medications for this visit. 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 Latest Ref Rng & Units 06/14/2023 CMP Sodium 136 - 144 mmol/L 141 Potassium 3.7 - 5.1 mmol/L 4.1 Chloride 97 - 105 mmol/L 106 CO2 22 - 30 mmol/L 24 Glucose 74 - 99 mg/dL 101 BUN 7 - 21 mg/dL 12 Creatinine 0.58 - 0.96 mg/dL 0.70 EGFR >=60 mL/min/1.73m 105 Protein, Total 6.3 - 8.0 g/dL 6.7 Albumin 3.9 - 4.9 g/dL 4.3 Calcium 8.5 - 10.2 mg/dL 9.4 Bilirubin, Total 0.2 - 1.3 mg/dL 0.3 AST 13 - 35 U/L 16 ALT 7 - 38 U/L 26 Alkaline Phosphatase 34 - 123 U/L 87 Cholesterol, Total (mg/dL) Date Value 04/18/2023 176 07/31/2018 177 Total Cholesterol, Nonfasting (mg/dL) Date Value 03/03/2021 195 HDL Cholesterol (mg/dL) Date Value 04/18/2023 41 07/31/2018 43 HDL Cholesterol, Nonfasting (mg/dL) Date Value 03/03/2021 40 LDL Cholesterol (mg/dL) Date Value 04/18/2023 116 07/31/2018 110 LDL Cholesterol, Nonfasting (mg/dL) Date Value 11/01/2022 115 03/03/2021 130 Triglyceride (mg/dL) Date Value 04/18/2023 95 07/31/2018 122 Triglycerides, Nonfasting (mg/dL) Date Value 03/03/2021 125 Latest Ref Rng & Units 06/14/2023 CBC WBC 3.70 - 11.00 k/uL 10.86 RBC 3.90 - 5.20 m/uL 4.46 Hemoglobin 11.5 - 15.5 g/dL 13.1 Hematocrit 36.0 - 46.0 % 40.5 MCV 80.0 - 100.0 fL 90.8 MCH 26.0 - 34.0 pg 29.4 MCHC 30.5 - 36.0 g/dL 32.3 RDW-CV 11.5 - 15.0 % 13.5 Platelet Count 150 - 400 k/uL 324 MPV 9.0 - 12.7 fL 10.6 Baso% % 0.7 Abs Neut (ANC) 1.45 - 7.50 k/uL 6.92 Abs Lymph 1.00 - 4.00 k/uL 2.89 Abs Meigs <0.87 k/uL 0.63 Abs Eosin <0.46 k/uL 0.31 Abs Baso <0.11 k/uL 0.08 NRBC /100 WBC 0.0 Vitamin D 25 Hydroxy Date Value Ref Range Status 04/18/2023 34.2 31.0 - 80.0 ng/mL Final Comment: Classification of 25 OH Vitamin D status: Deficiency/Insufficiency: < or = 30 ng/ml. Sufficiency/Optimal Levels: 31-80 ng/mL Toxicity: > 100 ng/mL. Test performed by chemiluminescent immunoassay. 01/21/2020 24.8 (L) 31.0 - 80.0 ng/mL Final Comment: Classification of 25 OH Vitamin D status: Insufficiency/Moderate Deficiency: < or = 30 ng/mL Sufficiency/Optimal Levels: 31 to 80 ng/mL Toxicity: > 100 ng/mL Test performed by chemiluminescent immunoassay. TSH Date Value 04/18/2023 1.460 mIU/L 05/03/2022 2.040 mIU/L 06/12/2020 2.680 uU/mL 04/14/2020 2.130 uU/mL ) Hemoglobin A1C (%) Date Value 04/18/2023 5.4 11/01/2022 5.2 05/03/2022 5.0 03/03/2021 5.1 01/21/2020 5.2 03/15/2018 4.8 Insulin Date Value Ref Range Status 06/14/2023 85.3 (H) 3.0 - 25.0 mU/L Final Assessment/Plan: Chika Good is a 52 year old yo with Class II obesity who presented today for follow up for supervised weight loss to treat and prevent related co-morbidities. 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) LITO (obstructive sleep apnea) (E55.9) Vitamin D deficiency (K21.9) Gastroesophageal reflux disease without esophagitis (E78.00) Hypercholesteremia (R63.5) Weight gain (E66.01, Z68.35) Class 2 severe obesity with serious comorbidity and body mass index (BMI) of 35.0 to 35.9 in adult, unspecified obesity type (HCC) -Discussed adding protein shake for breakfast- eliminating yogurt - increase protein intake - Has sleep consult with Tracey Goodman - continue whole foods, low carb, high protein - Continue Metformin and zepbound 5mg dose was previously sent will send 7.5mg dose to [facility] today for July filling - continue Lipitor - continue Prilosec -Continue vit D supplementation Prescription instructions reviewed with patient as applicable. Potential red flag symptoms discussed with the patient. Reviewed appropriate action plan to take if red flag symptoms occur. Patient agreeable to treatment plan. Follow up in 6-8 weeks I spent a total of 35 minutes on the date of the service which included preparing to see the patient, [id number] patient care, completing clinical documentation, obtaining and/or reviewing separately obtained history, performing a medically appropriate examination, counseling and educating the patient/family/caregiver, and ordering medications, tests, or procedures. Kailyn Puckett MD, FACOG, MYRTLE documented in this encounter [facility] 07-01-2023 Miscellaneous Notes Pt returns call gave information provided. Pt voices understanding. Left message for patient to return call to office Rafia Lundberg MA Please let patient know their echo is normal. documented in this encounter [facility] 06-16-2023 Miscellaneous Notes Pt called and is notified of providers results. Pt voices understanding. Luma Lim RN Please let patient know their labs are normal. documented in this encounter [facility] 06-14-2023 Miscellaneous Notes Patient called and notified of results. Patient verbalizes understanding. Rula Xiong RN Please let patient know her cxr is negative. documented in this encounter [facility] 06-14-2023 History of Present illness Narrative Radiology Service Progress Note PATIENT NAME: Chika Good DATE OF SERVICE: June 14, 2023 TIME: 10:13 AM PATIENT IDENTITY VERIFICATION COMPLETED USING TWO (2) IDENTIFIERS: Name and Date of confirmed by patient verbally. FALL SCREENING: Has the patient had 2 falls in the last year or 1 fall with injury or currently using an Ambulatory Assistive Device (Walker, Cane, Wheelchair, Crutches, etc.)? No PATIENT GENDER DATA: Female. status: : No status: NO. PATIENT RELEVANT IMPLANT DATA REVIEWED: Not Applicable PATIENT PRESENTS WITH AN IMPLANTABLE OR ATTACHED HAULAGE BOSS: No RADIOLOGY DEPARTMENT: General X-ray: Exam(s) Completed: Chest X-Ray PERIPHERAL IV DATA: Not applicable SIGNED BY: RT Hoa(R) June 14, 2023 10:13 AM documented in this encounter [facility] 06-14-2023 History of Present illness Narrative Chief Complaint Patient presents with: arm numbness: Left arm numbness X 1 week HPI Chika Good is a 52 year old female who presents here today for Above Complaints.. Patient presents for increasing SOB with exertion as well as swelling in her lower extremities. Patient also reports she is also having some left arm numbness. Past medical history, appointments, medications, allergies reviewed. Previous Medical History PAST MEDICAL HISTORY Diagnosis Date Abnormal glandular Papanicolaou smear of cervix Abn. Pap smear (cervix) Acute gastritis without mention of hemorrhage Allergic rhinitis, seasonal Anxiety 07/07/2012 Chronic tension-type headache, intractable 03/17/2016 Depression 07/07/2012 Encounter for routine gynecological examination 01/21/[address] 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 [facility] adult exam 01/21/2020 Last done 10/26/21 Previous Surgical History PAST SURGICAL HISTORY Procedure Laterality Date ADENOIDECTOMY PRIMARY <AGE 13 Adenoidectomy BREAST REDUCTION 09/2016 BX BREAST W/DEVICE 1ST LESION ULTRASOUND GUID Left 05/03/2015 U/S Needle core upper mid left breast DELIVERY ONLY 11/2007 [facility] COLONOSCOPY FLX DX W/COLLJ SPEC WHEN PFRMD 2003 Colonoscopy COLONOSCOPY FLX DX W/COLLJ SPEC WHEN PFRMD 08/21/2008 Colonoscopy COLONOSCOPY FLX DX W/COLLJ SPEC WHEN PFRMD 01/14/2015 COLONOSCOPY FLX DX W/COLLJ SPEC WHEN PFRMD 02/04/2020 Colonoscopy- repeat 5 year CONIZATION CERVIX W/WO D&C RPR ELTRD EXC 1994 LEEP-Cervix D&C, DIAG AND/OR THERAPEUTIC 12/2021 EGD 1992 REMOVAL OF FOREIGN BODY EGD TRANSORAL BIOPSY SINGLE/MULTIPLE 06/12/2008 ESOPHAGOGASTRODUODENOSCOPY TRANSORAL DIAGNOSTIC 05/16/2017 EGD ESOPHAGOGASTRODUODENOSCOPY TRANSORAL DIAGNOSTIC 02/04/2020 EGD- repeat in 1 year ESOPHAGOSCOPY FLEX BALLOON DILAT <30 MM DIAM 06/12/2008 SEPTOPLASTY 08/29/2017 Dr. Manny Sexton-nasal airway obstruction. deviated septum, inferior turbinate hypertrophy TONSILLECTOMY PRIMARY/SECONDARY <AGE 13 Tonsillectomy Family History FAMILY HISTORY Problem Relation Age of Onset Asthma Mother Hypertension Father Colon Cancer Father Colon polyps Colon Cancer Maternal Grandfather Colon Cancer Paternal Grandfather Blood Disease Sister Asthma Brother Patient Allergies ALLERGIES No Known Allergies Current Medications Current Outpatient Medications on File Prior to Visit Medication Sig Norethindrone, Contraceptive, 0.35 mg tablet Take 1 tablet by mouth once daily. tirzepatide, weight loss (ZEPBOUND) 2.5 mg/0.5 mL pen injector Inject 2.5 mg subcutaneously one time a week. [START ON 06/27/2023] tirzepatide, weight loss (ZEPBOUND) 5 mg/0.5 mL pen injector Inject 5 mg subcutaneously one time a week. Patient should start on June 27, 2023. omeprazole (PRILOSEC) 40 mg capsule Take 1 capsule by mouth once daily. ADELINA 0.0375 mg/24 hr estradiol (ESTRACE) 0.01 % (0.1 mg/gram) vaginal cream atorvastatin (LIPITOR) 20 mg tablet Take 1 tablet by mouth daily at bedtime. For cholesterol. fluticasone-salmeterol (ADVAIR DISKUS) 250-50 mcg/dose inhaler Inhale 1 Puff as instructed two times a day. Rinse and gargle mouth after use with water. albuterol HFA (VENTOLIN HFA) 90 mcg/actuation inhaler Inhale 2 Puffs as instructed every 4 hours as needed. OTC PRODUCT once daily. Tumeric CHOLECALCIFEROL, VITAMIN D3, ORAL Take by mouth as directed. Combined with omega 3 DUPIXENT SYRINGE 300 mg/2 mL injection No current facility-administered medications on file prior to visit. Social History Social History Tobacco Use Smoking status: Former Years: 15 Types: Cigarettes Quit date: 07/12/2006 Years since quittin.9 Smokeless tobacco: Never Tobacco comments: SOCIAL SMOKER IN PAST Vaping Use Vaping Use: Never used Substance Use Topics Alcohol use: Yes Comment: rare,NOT WHILE Drug use: No Review of Symptoms REVIEW OF SYSTEMS SEE HPI EXAM: BP 116/72 Pulse 82 Resp 16 LMP 05/04/2023 (Exact Date) General Appearance: Well appearing, alert, in no acute distress, well-hydrated, well nourished.. Lungs: Lungs clear to auscultation. No wheezing, rhonchi, rales.. Heart: RRR without murmur, gallop, or rubs. No ectopy. Peripheral Pulses: Normal. Health Maintenance List Shingrix Vaccine(1 of 2) Never done Influenza Vaccine(Season Ended) due on 11/13/2023 Mammogram Screening due on 01/13/2024 Annual PCP Team Chronic Disease Visit due on 04/18/2024 Colorectal Cancer Screening due on 02/03/2025 Diabetes Screening due on 04/18/2026 Pap Testing due on 05/10/2027 HPV Testing due on 05/10/2027 Lipid Screening due on 04/18/2028 DTaP,Tdap,Td Vaccine(3 - Td or Tdap) due on 11/01/2032 Hepatitis C Screening Completed Covid-19 Vaccine Completed Pneumococcal Vaccine Completed Hepatitis B Vaccine Discontinued Spirometry Discontinued HIV Screening Discontinued ASSESSMENT/PLAN: 1. SOB (shortness of breath) - ICD9: 786.05, ICD10: R06.02 (primary diagnosis) - CBC + DIFF - COMP METABOLIC PANEL - NT PRO BNP - ECG COMPLETE-NSR - ECHO - XR CHEST 2V FRONTAL/LAT 2. Peripheral edema - ICD9: 782.3, ICD10: R60.0 - NT PRO BNP - ECHO - PERFLUTREN LIPID MICROSPHERES 1.1 MG/ML INJECTION IN NS 10 ML - SODIUM CHLORIDE 0.9 % (FLUSH) INJECTION SYRINGE Latrice Etienne APRN.REPAIRER SHOE STICKS documented in this encounter [facility] 05-30-2023 History of Present illness Narrative Images from the original note were not included. Patient Summary: Chika Good is a 52 year old female with obesity who presents for an initial evaluation of overweight/obesity to treat and prevent co-morbidities and is interested in combination of behavioral and pharmacological. Motivation for seeking treatment for the disease of overweight/obesity : preventing other diseases and feeling better Goal weight: 150 Lowest recall weight: 121lbs Highest recall weight: 234lbs Patient identified barriers to weight loss: having some feet issues- leonard splints [place] body weight: 140 lb 14 oz (63.9 kg) Adjusted ideal body weight: 178 lb 2 oz (80.8 kg) Weight History: She reports a family history of obesity (brother, grandparents) and late adulthood weight gain. She states her weight gain is related to the following factors, including weight retention , onset of menopause, reduced physical activity, consumption of unhealthy foods, and stress and autoimmune . - Last Wt 05/30/23 : 234 lb (106.1 kg) 5% weight loss = 218 lbs, 10% weight loss = 206 lbs WEIGHT GRAPH: Wakes up: 5:30am- black coffee - drinks until lunch time Breakfast- 9am- Della cottage cheese pineapple and harley seeds, pea protein powder Lunch- seed 70cal nhi killer- Rotisserie chicken, garlic coffee Edamame, grapes (10) Dinner- Bonza chickpea pasta, chicken pasta, pepper, with veggies or schezwan chicken with white rice. Red cabbage with rice vinegar Snacks- sometimes chips, beef stick, cheese, Diet/Nutrition overview: Fluids: water (80-120oz) , black coffee 6cups Quality of diet: 24hr recall suggests in between diet. Characterization of diet:Structured. 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 LITO YES ; CPAP yes but does not wear it- air leaks ??Stress: Stress:yes , Cause:Personal Obesity Related Comorbidities: Prior Weight Loss Surgery:No PAST MEDICAL HISTORY Diagnosis Date Abnormal glandular Papanicolaou smear of cervix Abn. Pap smear (cervix) Acute gastritis without mention of hemorrhage Allergic rhinitis, seasonal Anxiety 07/07/2012 Chronic tension-type headache, intractable 03/17/2016 Depression 07/07/2012 Encounter for routine gynecological examination 01/21/[address] 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 [facility] adult exam 01/21/2020 Last done 10/26/21 PAST SURGICAL HISTORY Procedure Laterality Date ADENOIDECTOMY PRIMARY <AGE 13 Adenoidectomy BREAST REDUCTION 09/2016 BX BREAST W/DEVICE 1ST LESION ULTRASOUND GUID Left 05/03/2015 U/S Needle core upper mid left breast DELIVERY ONLY 11/2007 [facility] COLONOSCOPY FLX DX W/COLLJ SPEC WHEN PFRMD 2003 Colonoscopy COLONOSCOPY FLX DX W/COLLJ SPEC WHEN PFRMD 08/21/2008 Colonoscopy COLONOSCOPY FLX DX W/COLLJ SPEC WHEN PFRMD 01/14/2015 COLONOSCOPY FLX DX W/COLLJ SPEC WHEN PFRMD 02/04/2020 Colonoscopy- repeat 5 year CONIZATION CERVIX W/WO D&C RPR ELTRD EXC 1994 LEEP-Cervix D&C, DIAG AND/OR THERAPEUTIC 12/2021 EGD 1992 REMOVAL OF FOREIGN BODY EGD TRANSORAL BIOPSY SINGLE/MULTIPLE 06/12/2008 ESOPHAGOGASTRODUODENOSCOPY TRANSORAL DIAGNOSTIC 05/16/2017 EGD ESOPHAGOGASTRODUODENOSCOPY TRANSORAL DIAGNOSTIC 02/04/2020 EGD- repeat in 1 year ESOPHAGOSCOPY FLEX BALLOON DILAT <30 MM DIAM 06/12/2008 SEPTOPLASTY 08/29/2017 Dr. Manny Sexton-nasal airway obstruction. deviated septum, inferior turbinate hypertrophy TONSILLECTOMY PRIMARY/SECONDARY <AGE 13 Tonsillectomy FAMILY HISTORY Problem Relation Age of Onset Asthma Mother Hypertension Father Colon Cancer Father Colon polyps Colon Cancer Maternal Grandfather Colon Cancer Paternal Grandfather Blood Disease Sister Asthma Brother Social History Tobacco Use Smoking status: Former Years: 15 Types: Cigarettes Quit date: 07/12/2006 Years since quittin.8 Smokeless tobacco: Never Tobacco comments: SOCIAL SMOKER IN PAST Vaping Use Vaping Use: Never used Substance Use Topics Alcohol use: Yes Comment: rare,NOT WHILE Drug use: No Medications: Adipex-1.5 years ago-Dr. Lainez-had some success but didn't meet the weight loss Criteria and was taking off of the medication Weight Promoting Medications: Diet/weight loss History: Past weight loss attempts? 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 Its been a stressful 2 years of trying things and nothing is happening Exercise: Regular exercise: yes- 10 min of cardio warmup on elliptical 3 days a week Strength/resistance exercise:yes-weights x 3 days a week Barriers to regular exercise? yes -leonard splints-very painful Work-related activity:Sedentary. 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 Contraception: perimenopausal/ HRT- Estrogen and NE POP Obesity ROS/ FHx GEN: Fatigue:no CV: h/o palpitations/cardiac arrhythmia, Chest pain: no HTN: no PULM: Asthma:yes GI: GERD:yes ; Gallstones:no ; Fatty liver disease:no Pancreatitis: no MSK: Joint Pain:yes : Nephrolithiasis: yes Symptoms of PCOS: no NEURO: Migraines/MURDOCK: yes ; H/o seizures: no Glaucoma:no; Cataracts no Symptoms of or History of pseudotumor cerebri:no Family or personal History of MEN2 or Medullary thyroid cancer: no PE BP 110/68 Pulse 84 Ht 5' 8 (1.727 m) Wt 234 lb (106.1 kg) LMP 05/04/2023 (Exact Date) SpO2 96% BMI 35.58 kg/m Waist Circumference: 44.5 GENERAL: Female in NAD. Mixed central and gluteofemoral adiposity. SKIN: acanthosis nigricans no, Skin tags: no Hirsutism: no HEENT: PERRL, No supraclavicular adiposity. No dorsal adiposity. RESPIRATORY: CBTA CARDIAC: RRR ABDOMEN: Large pannus; EXTREMITIES: peripheral edema: yes (minimal) Results: reviewed with the patient Results Only on 04/30/2023 Component Date Value Ref Range Status Mathematics Technician 04/30/2023 Final Value:Provider CHUCK GIVENS your patient CHIKA GOOD started their Dania on 05-03-2023 and completed it on 05-03-2023 Dania program: [facility] SAFETY OFFIC[facility] WHAT TO EXPECT AT YOUR APPOINTMENT Appointment on 04/16/2023 Component Date Value Ref Range Status WBC 04/18/2023 8.61 3.70 - 11.00 k/uL Final RBC 04/18/2023 4.50 3.90 - 5.20 m/uL Final Hemoglobin 04/18/2023 13.4 11.5 - 15.5 g/dL Final Hematocrit 04/18/2023 41.4 36.0 - 46.0 % Final MCV 04/18/2023 92.0 80.0 - 100.0 fL Final MCH 04/18/2023 29.8 26.0 - 34.0 pg Final MCHC 04/18/2023 32.4 30.5 - 36.0 g/dL Final RDW-CV 04/18/2023 13.3 11.5 - 15.0 % Final Platelet Count 04/18/2023 286 150 - 400 k/uL Final MPV 04/18/2023 10.5 9.0 - 12.7 fL Final Absolute nRBC 04/18/2023 <0.01 <0.01 k/uL Final Protein, Total 04/18/2023 6.9 6.3 - 8.0 g/dL Final Albumin 04/18/2023 4.3 3.9 - 4.9 g/dL Final Calcium, Total 04/18/2023 9.2 8.5 - 10.2 mg/dL Final Bilirubin, Total 04/18/2023 0.2 0.2 - 1.3 mg/dL Final Alkaline Phosphatase 04/18/2023 78 34 - 123 U/L Final AST 04/18/2023 20 13 - 35 U/L Final ALT 04/18/2023 24 7 - 38 U/L Final Glucose 04/18/2023 94 74 - 99 mg/dL Final BUN 04/18/2023 8 7 - 21 mg/dL Final Creatinine 04/18/2023 0.59 0.58 - 0.96 mg/dL Final Sodium 04/18/2023 139 136 - 144 mmol/L Final Potassium 04/18/2023 4.2 3.7 - 5.1 mmol/L Final Chloride 04/18/2023 106 (H) 97 - 105 mmol/L Final CO2 04/18/2023 24 22 - 30 mmol/L Final Anion Gap 04/18/2023 9 9 - 18 mmol/L Final Estimated Glomerular Filtration Ra* 04/18/2023 109 >=60 mL/min/1.73m Final Hemoglobin A1C 04/18/2023 5.4 4.3 - 5.6 % Final Estimated Average Glucose 04/18/2023 108 mg/dL Final Cholesterol, Total 04/18/2023 176 <200 mg/dL Final Triglyceride 04/18/2023 95 <150 mg/dL Final HDL Cholesterol 04/18/2023 41 >39 mg/dL Final Non HDL Cholesterol 04/18/2023 135 (H) <130 mg/dL Final Fasting Time 04/18/2023 12 hrs Final VLDL Cholesterol 04/18/2023 19 <30 mg/dL Final TC:HDL Ratio 04/18/2023 4.29 <5.10 Final LDL Cholesterol 04/18/2023 116 (H) <100 mg/dL Final LDL:HDL Ratio 04/18/2023 2.83 (H) <2.54 Final Insulin Antibody, Qual 04/18/2023 Negative Negative Final Insulin Antibody 04/18/2023 <0.4 <0.4 U/mL Final Vitamin D 25 Hydroxy 04/18/2023 34.2 31.0 - 80.0 ng/mL Final Vitamin B12 04/18/2023 442 232 - 1,245 pg/mL Final TSH 04/18/2023 1.460 0.270 - 4.200 mIU/L Final Free T4 04/18/2023 1.1 0.9 - 1.7 ng/dL Final Impression: Chika Good is a 52 year old Female with Class II obesity (Body mass index is 35.58 kg/m .) who has adult onset obesity with gradual weight gain despite several weight loss attempts. The causes of her obesity are multifactorial, biological, psychological and social and environmental. Specific factors include increased consumption of high calorie/process foods, suboptimal physical activity, onset of menopause, and post weight retention. She has few weight-related medical comorbidities which increase her cardiovascular mortality risk. There are additional metabolic obesity complications including obstructive sleep apnea and Hypercholesterolemia. Other medical conditions as above. Regarding her lifestyle, as above, she has a few behavioral contributors ; her physical activity is regular but not at the recommended levels of 200min per week. Overall, it is clear that her quality of life is mildly compromised by her weight. It is likely a combination of weight loss therapies will be needed. She appears motivated today. 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 -- We discussed several strategies to track food intake and increase mindfulness around eating while will decrease calorie intake. She was counseled on the following: Eating primarily whole foods. Limit carbs, especially processed carbs. Do not drink your calories 30 grams of protein for breakfast decreases your hunger during the day by up to 40 % Premier Protein or generic 30 gm protein 1 gm sugar Walk for 15 minutes immediately a meal. -- Encouraged the patient to improve her physical activity. Although cardiovascular exercise is most beneficial for weight loss initially, we discussed healthy muscle from a combination of resistance training and cardiovascular exercise is the best truck terminal manager plan. An overall goal of 150-200 minutes per week of exercise has been effective in weight loss and maintenance. -- Reviewed that monitoring weight daily and food intake can have a positive impact on overall weight loss and maintenance of weight loss. Activity tracking can be used to stay on target for exercise however should not be used to reward oneself She understands that there can be limitations of pharmacotherapy due to contraindications, side effects and cost. Patient was told to contact her insurance company to see what AOMs and supervised behavioral medical appointments are currently covered. Patient understands she will have more success when following a healthy lifestyle. We reviewed continued use of online tracking of daily weights, food journal and if desired physical activity. We reviewed that during management she is to report any concerning side effects of any pharmacotherapy she is placed on. She understands that she will need routine follow up in the office. Prior to any virtual visits in the future she will need to check her Blood pressure, weight, and pulse. -Saw Project Coordinator at [facility]- may reach out again but will start with High protein low CHO- reviewed plan with patient -ZEPBOUND ordered - Reviewed Sleep medicine - does not wear CPAP b/c air leaks and makes high pitched sound- feels airway close at night. -Check insulin Level fasting - ordered -Continue Lipitor -GERD- continue Prilosec -Low Vit D continue Supplementation (G47.33) LITO (obstructive sleep apnea) (primary encounter diagnosis) (E55.9) Vitamin D deficiency (K21.9) Gastroesophageal reflux disease without esophagitis (E78.00) Hypercholesteremia (R63.5) Weight gain (E66.01, Z68.35) Class 2 severe obesity with serious comorbidity and body mass index (BMI) of 35.0 to 35.9 in adult, unspecified obesity type (HCC) (Z13.1) Screening for diabetes mellitus (Z13.228) Screening for metabolic disorder -- follow-up visit in 6 weeks for management of above interventions I spent a total of 75 minutes on the date of the service which included preparing to see the patient, [id number] patient care, completing clinical documentation, obtaining and/or reviewing separately obtained history, performing a medically appropriate examination, counseling and educating the patient/family/caregiver, and ordering medications, tests, or procedures. Kailyn Puckett MD, FACOG, GAYOM documented in this encounter [facility] 05-30-2023 Instructions Kailyn Gill MD - 05/30/2023 3:11 PM EDT Images from the original note were not included. Weight Management: You have taken the initiative to become a healthier version of yourself and to decrease the risks that come with the diagnosis of obesity or being overweight. We are happy to help you along this journey but know this is a lifetime commitment to yourself. Losing just 3-10 % of your body weight can decrease your risks of many other serious diseases like diabetes, heart disease, osteoarthritis, hypertension, cancer and so many others. During this time you will have triumphs, setbacks and plateaus- your body will fight against you but we are here to give you the tools and the resources to continue to reach your goals. We recommend during this time that you track your weight daily or at least five times per week as well as tracking your nutrition. You may track your activity but do not use hitting your fitness goals as a reward system as this can derail your success. We recommend weekly physical activity of 150-200 min/week-although physical exercise can help with maintaining weight loss it adds only a little benefit for truck terminal manager weight loss success. However, exercise can have many other benefits including improving mental health and cardiovascular health. Do not feel overwhelmed- we will discuss this more at your visits. Our time will be limited with each visit but we will try to touch on factors that are important to you and to your overall goals. We will try to set a goal at the end of each visit and then decide on what we want to accomplish with your upcoming visits. On your After Visit Summary (AVS), we will provide you with information that may be useful during this journey so please remember to read the information given. Check your AVS a few days after your appointment because we may have added more information specifically for you. Remember that if you are placed on medications, they are tools that can help you succeed but you must put in the work. Your nutrition will be the main factor. There are medications that work well for some and not for others- so it may take time to find the right combination for your body's needs. Please remember that factors such as other health co-morbidities one might have, as well as insurance coverage, will play a factor in determining which medications you can take. Most of the newer medications that are all the craze ,injectables, may not be covered or will only be covered if you fail months of oral medications- so please be patient with the process. It would be beneficial for you to determine what your insurance covers as far as Anti-Obesity Medications (AOMs), Nutritional Counseling, behavioral intervention and weight loss surgery. Please call your health insurance prior to your first appointment and write down coverage for each of those therapies. Most importantly, remember that ultimately our goal is to help you get to a healthier weight which will decrease your overall health risks. We will work together as a team and try to reach your personalized goals as well. We appreciate that you have entrusted us with your health and know that we are committed to this process with you. Sincerely, Kailyn Givens MD, MYRTLE WORKMAN & Janeth Steiner, REPAIRER SHOE STICKS Obesity Obesity is a disease that affects nearly one-third of the adult [place] population (approximately 60 million). The number of overweight and obese Americans has continued to increase since 1960, a trend that is not slowing down. Today, 64.5 percent of adult Americans (about 127 million) are categorized as being overweight or obese. Each year, obesity causes at least 300,000 excess deaths in the [place] and healthcare costs of [place] adults with obesity amount to approximately $100 billion. (AOA) Obesity is a complex, multi-factorial chronic disease involving: Environmental (social and cultural) The tendency toward obesity is a result of our environment: lack of physical activity along with high-calorie, low-cost foods. Home, work, school, and even the community can inhibit a healthy lifestyle. Genetic (Hereditary plays a large role in determining how susceptible people are to overweight and obesity). Genes also influence how the body tracy calories for energy and stores fat. Physiologic, metabolic, behavioral (eating too many calories while not getting enough exercise) and psychological components. It is the second leading cause of preventable in the [place] Behavioral changes brought on by economic development, modernization and urbanization have been linked to the rise in global obesity. Calculating BMI Body Mass Index (BMI) is a measurement tool used to determine excess body weight. Overweight is defined as a BMI of 25 or more, obesity is 30 or more, and severe obesity is 40 or more. You can visit www.nhlbi.nih.gov to estimate your BMI. Obesity Related Health Conditions The morbidity and mortality risk from being overweight is proportional to its degree. Individuals with morbid obesity, therefore, have the highest risk for developing numerous illnesses that often reduce mobility and quality of life due to their excess weight. In particular, type 2 diabetes, gallbladder disease and osteoarthritis have been found to increase concurrently with higher BMI. Premature , a 20-year shorter life span, has also been found in individuals with morbid obesity. All of the systems that make the body function are affected by morbid obesity. Type 2 diabetes Gallbladder disease and gallstones Liver disease Osteoarthritis, a disease in which the joints deteriorate. This is possibly the result of excess weight on the joints. Gout, another disease affecting the joints Pulmonary (breathing) problems, including sleep apnea in which a person can stop breathing for a short time during sleep Reproductive problems in women, including menstrual irregularities and infertility Gastroesophageal reflux/heartburn Hypertension Heart Disease Depression Psychological disorders/social impairments Urinary Stress Incontinence Obesity is also linked to higher rates of certain types of cancer. Obese men are more likely than non-obese men to from cancer of the colon, rectum, or prostate. Obese women are more likely than non-obese women to from cancer of the gallbladder, breast, uterus, cervix, or ovaries https://my.[facility].org/health/ diseases/84547-xoacwm-zakxfnbgjf-jxvsu nt-education ---- Nutrition - Eat primarily whole foods. Limit carbs, especially processed carbs. - Do not drink your calories - 30 grams of protein for breakfast decreases your hunger during the day by up to 40 % Premier Protein or generic 30 gm protein 1 gm sugar - Walk for 15 minutes immediately a meal. TIRZEPATIDE (Zepbound) Tirzepatide (Mounjaro, Zepbound) is a combination drug (mimics 2 gut hormones, GLP1 and GIP) which has demonstrated superior weight loss >20% body wt loss after 72 week randomized controlled study. It's only approved for diabetes currently, but likely will have approval for weight/obesity next year. Below is more information on it as we discussed. Tirzepatide delays gastric emptying and has the potential to alter absorption of oral medications. This is important in patients taking narrow therapeutic index drugs or drugs that need a minimum blood level for efficacy. If you are taking oral contraceptives switch to a non-oral contraceptive method or add a barrier contraceptive method for 4 weeks after initiation of tirzepatide and for 4 weeks after each dose escalation. Video Instructions for Injecting Mounjaro/Zepbound: https://www.[employer]eker [employer].com/watch?v=nxnhBd yTSZ0 Link to Shoe Packer Website: zepbound https://[email or web address].[email or web address]/?gclid= [email or web address] To see if it is covered - coupon program [email or web address]://[email or web address]/coverag e-savings Medication Guide: https://www.Fiz.Sociall.[email or web address]/how-to- use Tirzepatide: Patient drug information What is Zepbound? Zepbound is an injectable prescription medicine that may help adults with obesity, or with excess weight (overweight) who also have weight-related medical problems, lose weight and keep it off. Zepbound should be used with a reduced-calorie diet and increased physical activity. Zepbound contains tirzepatide and should not be used with other tirzepatide-containing products or any GLP-1 receptor agonist medicines. It is not known if Zepbound is safe and effective when taken with other prescription, vmxf-vpc-lnnnvvi, or herbal weight loss products. It is not known if Zepbound can be used in people who have had pancreatitis. It is not known if Zepbound is safe and effective for use in children under 18 years of age. PLEASE READ THE SAFETY INFORMATION ON THE ABOVE WEBSITE It works in multiple ways. It helps: - THE BODY RELEASE INSULIN WHEN BLOOD SUGAR IS HIGH - THE BODY REMOVE EXCESS SUGAR FROM THE BLOOD - STOP THE LIVER FROM MAKING AND RELEASING TOO MUCH SUGAR - REDUCE HOW MUCH FOOD IS EATEN - SLOW DOWN HOW QUICKLY FOOD LEAVES THE STOMACH. THIS LESSENS OVER TIME. Meal replacements: Meal Replacements Plant-based protein bars Meal replacements. One option that works for some people is to use meal replacements, as in the DiRECT and Look AHEAD trials.The available options in Look AHEAD included shakes, bars, and meals from a variety of companies ([employer], [employer], [employer], and [employer]). The calorie content was 150 to 220 calories, depending on the product. People who used meal replacements 12 times a week instead of preparing their own meals lost about 11% of their weight in the first year, whereas those who used just two per week lost about 6% of their weight. Keep in mind, though, that people in the trial who used meal replacements also tended to consume a healthier diet over all; they were more likely to have met their goals for dietary fat, fruits and vegetables, and dairy foods, and to have cut back on sweets, than those who didn t use meal replacements. Similarly, in the DiRECT trial, participants consumed special nutritionally complete shakes and soups (the Counterweight-Plus program) for the first 12 weeks.If you opt for meal-replacement drinks, bars, or frozen entrees, here are some criteria to look for: calories, 150 to 300 fat, 3 to 10 grams protein, > 20 grams sugar < 5 g Meal replacements are typically fortified with vitamins and minerals and contain some fiber. Because they are calorie controlled, the amount of added sugars is usually minimal. If you want to try this approach to boost weight loss, ask your dietitian or another member of your health care team how to incorporate the replacements into your meal planning and discuss whether you might need to reduce your doses of diabetes medications to prevent hypoglycemia (low blood sugar) as you cut calories and lose weight. It is important to find a meal-replacement product that suits your taste. If you prefer not to consume processed foods, you can make your own portion-controlled versions. Note that meal replacements don t work for everyone. While some people like meal-replacement shakes, bars, and soups and find them to be a convenient way to sustain a reduced calorie intake over time, others don t feel satisfied drinking them and often end up simply adding them to what they d normally eat--which could lead to weight gain. What s more, some people have a hard time readjusting to eating real food after they stop using meal replacements. 30 High Protein Snack Ideas 1. Jerky 2. [place]line mix without dried fruit 3. Adams roll-ups 4. English yogurt 5. Veggies and yogurt dip 6. Tuna 7. Hard-boiled eggs 8. Peanut butter with celery 9. Cheese slices/ Cheese Stick 10. Handful of almonds, peanuts or walnuts 11. Cottage Cheese 12. Beef sticks 13. Protein bars 14. Canned [place] 15. Pumpkin seeds 16. Nut butter 17. Protein shakes 18. Avocado and chicken salad 19. Egg muffins 20. Leftover protein or lunch meat 21. 1/2 c blended cottage cheese with 1 Tbsp sugar-free dry cheesecake pudding mix 12g protein 10 carb <15 gram carb fruit options Berries have the lowest sugar content 1/2 cup diced honeydew melon - 8 carbs 1/2 cup diced watermelon - 6 carbs One half medium grapefruit - 10.5 carbs 1 medium orange -15.5 carbs 1 medium peach -14.5 carbs 1/2 cup fresh cranberries - 6.5 carbs 1 medium plum -7.5 carbs 1/2 cup raspberries -7.5 carbs 1 medium [place] -9 carbs 1/2 cup fresh pineapple -11 carbs 1 medium nectarine - 15 carbs 1/2 cup blueberries - 11 carbs - may actually help you lose weight 1 medium kiwi without skin - 11 carbs 1/2 cup fresh cherries -11 carbs 1 medium tangerine -12 carbs 1/2 cup sliced daniel -14 carbs 1/2 medium banana 1/2 c grapes 1/2 medium apple - 12.5 carbs 1/2 c strawberries - 12.7 carbs 5 (FIVE) gram carb vegetable options 1 cup raw OR cup cooked: Asparagus Cabbage Spinach Peppers Green beans Carrots Tomato [place] sprouts Cauliflower Lettuce Snap peas Broccoli Eggplant Zucchini Turnips Spaghetti squash Brussel sprouts 15 gram carb vegetable options cup cooked green peas cup cooked corn or hominy corn on the cob, large (5 oz) cup cooked sweet potato, plain cup cooked potato, plain 1 small potato or sweet potato 1 cup winter squash (pumpkin, acorn, butternut) 1 cup marinara or pasta sauce - check label cup tomato juice cup tomato puree Beans, Seeds, Nuts cup cooked beans (kidney, pepe, red, green, etc.) cup cooked lentils cup baked beans 4 tablespoons nut butter Grains Brown rice 1/2 c 5.5g protein 24 carb White long-grain rice 1/2 c 2g protein 22.5 carb Quinoa 1/2 c 4 gm complete protein 25 carb Oatmeal, old fashioned 1/2 c 5g protein 27g carb Protein - no carbs Egg 1 large - 6g Egg white 1 large 3.6g 3 oz is approximately the size of a deck of cards and equals 21 g protein Beef, Chicken, Adams, Pork, Hines 1 oz 7g Fish, Tuna Fish 1 oz 7g (Starkist tuna packet 2.6 oz 17 gm protein) Seafood (Crabmeat, Shrimp, Lobster) 1 oz 6g Protein shakes (read labels) Premier Protein or generic [employer] Equate, Me[employer] High Performance- 30g protein & 1g carb - meal replacement Premier Protein plant protein powder - 25 gm protein, 0 suger/2 carb Vanilla and chocolate (not a meal replacement) Fairlife 30 gram protein - 30g protein & 3g carb BOOST Glucose Control Max 30g Protein Nutritional Drink - 30g protein & 1 carb - meal replacement Slimfast High Protein - 20g protein & 1g carb Ensure Max Protein Nutrition Shake 30g protein & 2 carb Protein AND carbs Beef/Adams Jerky 1 oz dried 10-15g protein - check carb count, can be high if sugar added Slim Jimbo - 6 gm protein and 4 net carb Great Value original turkey sausage sticks - 7 gm protein and 2 gm carb Ty (at [facility]) Original smoked sausage sticks - 8 gm protein and 0 carb Imitation Crab Meat 1 oz - 2g protein & 4g carb Milk, skim 2% or 1% 8 oz - 8g protein & 12g carb English yogurt Full Fat English Yogurt 1 cup - 20.4g protein & 9.1g carb 2% English Yogurt 1 cup - 22.7g protein & 9.1g carb 0% (fat-free) English Yogurt - 1 cup 24g protein & 9.3g carb :ratio, KETO Friendly Dairy Snack 1 single svg - 15g protein & 2g carb :ratio Protein 1 single svg - 25g protein & 8g carb Dannon Light + Fit 1 single csvg - 12g protein & 9g carb Two Good Lowfat English Yogurt, [place], Lower Sugar - 12g protein & 2g carb Oikos Triple Zero English Nonfat Yogurt 1 single svg - 15g protein & 7g carb Aldi Protein English yogurt 15g protein & 7g carb Cheese each oz Brie 5.9g protein & 0.1g carb Cheddar Cheese 7g protein & 0.4g carb Mozzarella Cheese 6.3g protein & 0.6g carb Branden Cheese 6.7g protein & 0.7g carb Parmesan Cheese 10g protein & 0.9g carb Cream Cheese 1.7g protein & 1.2g carb Feta 4g protein & 1.2g carb Uzbek Cheese 7.6g protein & 1.5g carb [place] s Low Fat Cottage Cheese 1/2cup 12g protein & 4g carb Legumes Lentils cup 9g protein & 20g carb Garcia beans cup 7g protein & 20g carb Kidney, Black, [place], Cannellini beans cup 8g protein & 20g carb Soybeans 1/2 c 14g protein & 8.5g carb Peanut butter, natural 2 Tbsp 7-8g protein & 4g net carbs, 190 calories PB2 powder 2 Tbsp 6g protein & 5g carb Bailey milk, unsweetened 8 oz 1g protein & 2g carb Soy milk 8 oz 3.5g protein & 1.6g carb Tofu 1/2 cup 10g protein & 2.3g carb Nuts and Seeds per oz Pumpkin Seeds - 6.9g protein & 5g carb Almonds - 5.9g protein & 6.1g carb [place] Seeds - 5.8g protein & 5.6g carb Pistachios - 5.8g protein & 7.8g carb Cashews - 5.1g protein & 9.2g carb Walnuts - 4.3g protein & 3.8g carb Hazelnuts - 4.2g protein & 4.7g carb [place] Nuts - 4.0g protein & 3.4g carb Pecans - 2.6g protein & 3.9g carb Peanuts - 7g protein & 4.6g carb Sleep Apnea and Weight Gain: 3 Facts You Should Know By Jo Corral, MPH, RD Does sleep apnea cause weight gain? According to experts, sleep apnea affects more than your sleep. It may also cause weight gain and prevent weight loss. Sleep apnea is a severe sleep disorder that causes a disrupted breathing pattern during sleep. Signs and symptoms of the condition include snoring and gasping for air while sleeping. According to [facility], sleep apnea affects 25% of men and almost 10% of women. But can the disorder cause weight gain? Here, experts offer their insights about the possible relationship between sleep apnea and weight gain. Sleep Restriction Can Increase Your Appetite One hypothesis about how sleep apnea can affect weight gain relies on two hormones called ghrelin and leptin. Leptin is meant to decrease your appetite, whereas ghrelin is intended to increase it. Sleep apnea patients have significantly higher ghrelin levels, the hormone that makes you feel hungry, and significantly lower leptin levels, the hormone that makes you feel full, Carla Murphy, Ph.D., lead sleep specialist and neuroscientist at [facility], tells [employer] [facility]. This means that individuals with obstructive sleep apnea are more likely to feel hungry and consume more calories. A 2019 article published by Nutrients notes that leptin resistance is often observed in obese individuals, which can lead to the intake of excessive calories and difficulties with weight loss. In addition, decreased ghrelin levels are commonly seen in individuals who are obese. However, the association between leptin and ghrelin levels regarding sleep apnea and weight gain in humans is still being studied. Sleep Loss Can Hinder Your Ability to Lose Weight According to the Centers for Disease Control and Prevention (CDC), adults between the ages of 18 and 60 need at least seven hours of sleep per night. However, if you re sleep-deprived, this may affect your ability to lose weight. Sleep loss from sleep apnea can also reduce your body's ability to lose weight efficiently. Studies have shown that even when placed on low-calorie diets, individuals that are sleep deprived lost 55% less weight from fat than individuals that were on the same diet but had sufficient sleep, Jeffrey says. According to a 2019 study published in the International Journal of Obesity, inconsistent sleep patterns or a shortened sleep duration can lower the likelihood of successful weight loss. Additionally, lack of sleep can lead to diminished or lack of impulse control, junk food cravings, and being too tired to exercise, which can prevent you from being motivated to lose weight. Weight Gain Can Increase Your Chances of Sleep Apnea Additionally, being obese can put you at a higher risk of developing sleep apnea. As the body gains weight, more tissue can be found on or around the throat. This makes apnea events more common. Because the extra weight makes it more likely, the tissues in the soft palate will collapse, causing an apnea event, Regis Thompson DDS, a sleep specialist at [facility], tells [facility]. According to a 2017 article published in Anesthesia and Analgesia, weight gain can cause an increase in fat distribution in the neck and waist specifically, which can subsequently contribute to the development of sleep apnea. In addition, [facility] observes that an increased neck circumference can narrow the airway, which can cause snoring and sleep apnea. [email or web address]-[email or web address]/ sleep-apnea/rlycb-rqbnn-ist-weight-gai n Disrupted Sleep Linked to Weight Gain - YouTube How To Improve Your Sleep To Impact Your Weight Loss: [email or web address] Weight Loss and Sleep Updated December 21, 2019 Written by Robert Lomax Medically Reviewed by Erica Jaramillo In This Article The Connection Between Sleep and Weight Sleep and Obesity Sleep During Weight Loss Maintaining a Healthy Relationship With Your Body Losing weight is challenging, and keeping weight off can be just as difficult. Although the medical community is still untangling the complicated relationship between sleep and body weight, several potential links have emerged that highlight the potential weight loss benefits of getting a good night s rest and the negative health impacts of sleep deprivation. The Connection Between Sleep and Weight Over the past several decades, the amount of time that Americans spend sleeping has steadily decreased1, as has the self-reported quality of that sleep. For much of the same time period, the average body mass index (BMI) of Americans increased2, reflecting a trend toward higher body weights and elevated rates of obesity. In response to these trends, many researchers began to hypothesize about potential connections between weight and sleep. Numerous studies have suggested that restricted sleep and poor sleep quality may lead to metabolic disorders, weight gain, and an increased risk of obesity and other chronic health conditions. While there is continuing debate within the medical community about the exact nature of this relationship, the existing research points to a positive correlation between good sleep and healthy body weight. There remains much to be discovered about the intricate details of how sleep and weight are connected. Several hypotheses offer paths for additional research with the hope that increasing our understanding of the relationship between weight and sleep will lead to reduced obesity and better weight-loss methods. Can Lack of Sleep Increase Appetite? One common hypothesis about the connection between weight and sleep involves how sleep affects appetite. While we often think of appetite as simply a matter of stomach grumbling, it s actually controlled by neurotransmitters, which are chemical messengers that allow neurons (nerve cells) to communicate with one another. The neurotransmitters ghrelin and leptin are thought to be central to appetite. Ghrelin promotes hunger, and leptin contributes to feeling full. The body naturally increases and decreases the levels of these neurotransmitters throughout the day, signaling the need to consume calories3. A lack of sleep may affect the body s regulation of these neurotransmitters. In one study, men who got 4 hours of sleep had increased ghrelin and decreased leptin compared to those who got 10 hours of sleep. This dysregulation of ghrelin and leptin may lead to increased appetite and diminished feelings of fullness in people who are sleep deprived. In addition, several studies have also indicated that sleep deprivation affects food preferences. Sleep-deprived individuals tend to choose foods that are high in calories and carbohydrates4. Other hypotheses regarding the connection between sleep and increased appetite involve the body s endocannabinoid system5 and orexin6, a neurotransmitter targeted by some sleep aids. Many researchers believe that the connection between sleep and dysregulation of neurotransmitters is complicated and additional studies are needed to further understand the neurobiological relationship. Does Sleep Increase Metabolism? Metabolism7 is a chemical process in which the body converts what we eat and drink into energy needed to survive. All of our collective activities, from breathing to exercising and everything in between, is part of metabolism. While activities like exercise can temporarily increase metabolism, sleep cannot8. Metabolism actually slows about 15% during sleep, reaching its lowest level in the morning 9. In fact, many studies have shown that sleep deprivation (whether due to self-induction, insomnia, untreated sleep apnea, or other sleep disorders) commonly leads to metabolic [id number]. Poor sleep is associated with increased oxidative stress, glucose (blood sugar) intolerance (a precursor to diabetes), and insulin resistance. Extra time spent awake may increase the opportunities to eat11, and sleeping less may disrupt circadian rhythms, leading to weight gain12. How is Sleep Related to Physical Activity? Losing sleep can result in having less energy for exercise and physical activity. Feeling tired can also make sports and exercising less safe, especially activities like weightlifting and or those requiring balance. While researchers are still working to understand this [id number], it s well known that exercise is essential to maintaining weight loss and overall health. Getting regular exercise can improve sleep quality, especially if that exercise involves natural light. While even taking a short walk during the day may help improve sleep, more activity can have a more dramatic impact. Engaging in at least 150 minutes of moderate-intensity or 75 minutes of high-intensity exercise per week can improve daytime concentration and decrease daytime [id number]. Sleep and Obesity In children and adolescents, the link between not getting enough sleep and an increased risk of obesity is well-established, although the reason for this link is still being debated. Insufficient sleep in children can lead to metabolic irregularities as discussed earlier, skipping breakfast in the mornings, and increased intake of sweet, salty, fatty, and starchy foods15. In adults, the research is less clear. While a large analysis of past studies suggests that people getting less than 6 hours of sleep at night are more likely to be diagnosed as obese16, it s challenging for these studies to determine cause and effect. Obesity itself can increase the risk of developing conditions that interfere with sleep, like sleep apnea and depression. It s not clear if getting less sleep is the cause of obesity in these studies, if obesity is causing the participants to get less sleep, or perhaps a mix of both. Even though more studies are needed to understand this connection, experts encourage improving sleep quality when treating obesity in adults. Sleep During Weight Loss Getting adequate, quality sleep is an important part of a healthy weight loss plan. Most importantly, research has shown that losing sleep while dieting can reduce the amount of weight lost17 and encourage [id number]. Tips for Quality Sleep During Weight Loss There are many ways to improve sleep. Here are a few research-based tips for sleeping better when you re trying to lose weight: Keep a regular sleep schedule: Big swings in your sleep schedule or trying to catch up on sleep after a week of late nights can cause changes in metabolism and reduce insulin [id number], making it easier for blood sugar to be elevated. Sleep in a dark room: Exposure to artificial light while sleeping, such as a TV or bedside lamp, is associated with an increased risk of weight gain and wxatygl96. Don t eat right before bed: Eating late may reduce the success of weight loss [id number] Reduce Stress: Chronic stress may lead to poor sleep and weight gain in several ways, including eating to cope with negative [id number] Be an Early Bird: People with late bedtimes may consume more calories and be at a higher risk for weight gain23. Early birds may be more likely to maintain weight loss when compared to night [id number]. Maintaining a Healthy Relationship With Your Body Deciding if you should attempt to change your body weight is a personal decision best made with the guidance of your doctor. Don t take all the health and weight loss information you read [id number] at face value. Weight loss isn t appropriate for everyone and doesn t always mean better health. Remember that health is a lifelong journey that includes not only healthy habits but also having a healthy relationship with your body. If you re considering weight loss, the National Institutes of Health offers a helpful resource for choosing a safe weight loss [id number] Source National [place] of Diabetes and Digestive and Kidney DiseasesNIDDK research creates knowledge about and treatments for diseases that are among the most chronic, costly, and consequential for patients, their families, and the Nation. niddk.nih.gov . https://www.sleepfoundation.org/physic al-health/tniosy-ivqo-bej-sleep The Role of Exercise in Weight Management No one can deny the psychological and physical benefits of exercise. Regular physical exercise aids in stress reduction, blood sugar control, cholesterol reduction, and improved sleep. It s also beneficial for weight control. both aerobic and strength training is beneficial for weight control. The ACSM ([place] [employer]) advises 200-300 minutes of moderate-intensity exercise to lose weight and sustain the loss. Aerobic exercise (walking, jogging, swimming, cycling) uses glucose (from glycogen) and triglycerides (from fat in storage) for energy. Strength or resistance training helps build muscle, which is more metabolic at rest than fat tissue. Both are beneficial to weight management. According to the 2018 Physical Activity Guidelines for Americans, Americans are advised to do a minimum of 30 minutes of physical activity most days of the week. This equates to 150 minutes of moderate activity or 75 minutes of vigorous exercise per week for general health. This should include both aerobic and strength training exercises. However, without calorie restriction, this isn t enough for weight loss or weight maintenance in most people. Currently, 53 % of Americans over 18 do adequate aerobic exercise while only 23% get both aerobic and muscle-strengthening activity. Most [place] adults are still too sedentary. A sedentary lifestyle is associated with cardiovascular disease, type 2 diabetes, and certain types of cancer including endometrial, colon, and lung cancer. Which types of exercise aid in weight control? How much should I do? In addition to caloric restriction, both aerobic and strength training is beneficial for weight control. The ACSM ([place] [employer]) advises 200-300 minutes of moderate-intensity exercise to lose weight and sustain the loss.Moderate-intensity exercises include brisk walking, jogging, using a rowing machine, or doing a 50-60 minute dance class. To senior sourcing manager the level of intensity you should aim for, think of it this way: a person should be able to carry a conversation but not be able to sing. HIIT (high-intensity interval training) is one method of exercise that may be beneficial to those who are trying to lose weight and are short on time. One way to do HIIT involves doing high-intensity exercise (such as sprinting) for 60 seconds followed by 60 seconds of low-intensity exercise (walking) or rest. Exercises are repeated 8 times with rest for a few minutes, then repeated until 30 minutes of exercise is completed. A meta-analysis of 39 studies with 671 participants showed that HIIT reduced total, abdominal, and visceral fat mass in both men and women aged 38.8 +/- 14.4. Running was more effective than cycling in lowering total and visceral fat mass while low-intensity exercise (like walking) also resulted in abdominal and visceral fat loss. The latter took more time. HIIT training is typically done a few days a week. Individuals are advised to choose less intense exercises in between HIIT training days. More muscle matters! One of the biggest reasons (no pun intended) that adults gain weight over time is due to muscle loss. A comparison study of various methods of exercise was performed with older subjects with obesity. Subjects got randomly assigned to a weight control program along with one of four programs: aerobic training, resistance training, combined aerobic and resistance training, or a control group (no treatment). The initial outcome was the change in Physical Performance Test Scores from the start to 6 months after the study began, while secondary outcomes included changes in body composition, bone mineral density, and physical function. There were 141 total subjects that finished the study. Physical Performance Test score was higher in the combination group than in the aerobic and resistance groups. Bodyweight decreased in all exercise groups (9%) but not in the control group. Lean mass and bone density were maintained the most in the combination and resistance groups. Strength also increased in the resistance training and combination training groups. As muscle is more metabolic than fat, maintaining muscle mass is important to long-term weight control. It s important for individuals who have been sedentary to check with their doctors before embarking on a new exercise program. While HIIT training may be appropriate for younger individuals and/or those without comorbidities like cardiovascular disease, it s important to find an exercise that s enjoyable. Physical activities could include: Multiple bouts of moderately paced walking a few times per day. Use of an elliptical or rowing machine or a water aerobics class A walking video to use at home Playing tennis or pickleball Trying a regular or stationary bike or a spin class Joining a kickboxing or Fly class at a gym or rec center Resistance training may include: Use of stretch bands Multiple reps of small hand weights Use of nautilus machines A pilates class (in person or at home) HOW MUCH PHYSICAL ACTIVITY IS ENOUGH? RECOMMENDATIONS FOR THE WEEK https://blog.nasm.org Before we can begin to answer the question of how much activity is enough, we need to consider what fitness means. Fitness is synonymous with health, our physical condition and even our ability to complete the tasks required for our ongoing survival (and perpetuation of the species). Our modernized society has overwhelmingly reduced the tasks and activities we need to accomplish to survive, but the general lack of movement has negatively impacted our health and physical condition. Regular physical activity, even in small amounts, can help prevent, treat, and sometimes even alleviate some of the most common chronic conditions we encounter, including high blood pressure, cardiovascular disease, stroke, obesity, type 2 diabetes, osteoporosis, depression, and some cancers (1,2). WEEKLY PHYSICAL ACTIVITY REQUIREMENTS FOR FITNESS Guidelines recommend at least 150 minutes of moderate-intensity cardiorespiratory exercise, 75 minutes of vigorous-intensity, or a combination of moderate- and vigorous-intensity exercise per week. The weekly recommendation for resistance training is 2 or more days per week with exercises for all the major muscle groups (minimum of 1 set of 8-12 repetitions for each muscle group). Flexibility and neuromotor exercises (balance, agility, coordination) are also recommended at least twice per week. The nath phrase to note is at least with more benefits being realized with more activity. But what if your clients aren t quite ready to tackle these recommendations? When developing exercise programs for a previously sedentary individual, meet them where their abilities are now and help them find ways to increase their activity levels. Those 150 minutes of moderate-intensity cardiorespiratory activity are to be spread out over the week, ideally 30 minutes a day, 5 times per week. This data is from two of the most widely recognized activity guideline reports for improving physical fitness include Quantity and Quality of Exercise for Developing and Maintaining Cardiorespiratory, Musculoskeletal, and Neuromotor Fitness in Apparently Healthy Adults: Guidance for Prescribing Exercise from the [place] [employer] (2) and the Physical Activity Guidelines for Americans from the U.S. Department of Health and Human Services (3). Consider that those 30 minutes can be further broken down into 10 minute bouts of activity. Some individuals may even need to start with as little as two minutes of walking and build their way up to 10 minutes over days, or even weeks. The goal is to motivate them to increase their activity and succeed. Even if more activity is better, a little activity beats none at all. And walking is really great for weight loss too. Don t discount the importance of also increasing unstructured non-exercise activity thermogenesis (NEAT) (4). These are the activities beyond sleeping, eating and intentional exercise that include daily motions such as standing, walking, using the stairs, fidgeting, yard work, and multiple other movements we make throughout the day. NEAT is not to be confused with movements that have measurable metabolic equivalents. Unstructured physical activity is the foundation that can help people realize that just being active, rather than sedentary, can impact their overall, long-term health. Understandably, goals need to be explored to discover just how much activity may be needed and over what associated time frame in order to reach those goals. For someone wanting to adopt a healthier lifestyle, finding enjoyable activities with a realistic schedule are essential. Start with a conservative approach where the individual will be successful, safe, and comfortable. Then encourage them to improve the return on their results with a mix of higher frequencies, durations, and intensities of activity. Sources: AMNA Byrd, DAPHNEY Contreras, BG Canelo. [facility] Essentials of Personal Fitness Training 4th ed. MD Jeffery: Jen [employer]; 2012. [place] [employer]. Quantity and quality of exercise for developing and maintaining cardiorespiratory, musculoskeletal, and neuromotor fitness in apparently healthy adults: Guidance for prescribing exercise. Medicine and Science in Sports and Exercise 2011;43(7):3087-8383. U.S. Department of Health and Human Services. 2008 Physical activity guidelines for Americans. http://www.health.gov/paguidelines/alisha delines/default.aspx (accessed August 15, 2012). KANIKA Galeano. Nonexercise activity thermogenesis - liberating the life-force. Journal of Internal Medicine, 2007;262: 273-287. Tips for eating away from home: Youtube video: https://www.[employer].com/watch?v=V9oFJW oNYoA Meals away from home make it harder to control ingredients, calories, and portions. This can be particularly challenging for people with Type 2 diabetes (and for those of us trying to avoid getting this condition). The following tips can help you enjoy eating out without abandoning your efforts to eat well. Ask how the food is prepared. Before you order, ask about ingredients and how the menu selections are prepared. Try to choose dishes made with whole grains, healthy oils, vegetables, and lean proteins. Meat that has been broiled, poached, baked, or grilled is a more health-conscious option than fried foods or dishes prepared with heavy sauces. Look for less. Your eyes are the perfect instrument for sizing up portion sizes. Use your estimating techniques to size up the food on your plate. 1 thumb tip = 1 teaspoon of peanut butter, butter, or sugar 1 finger = 1 oz. of cheese 1 fist = 1 cup cereal, pasta, or vegetables 1 handful = 1 oz. of nuts or pretzels 1 palm = 3 oz. of meat, fish, or poultry Plan on eating half your meal and take the rest home to enjoy for lunch or dinner the next day. Order an extra side of veggies. Non-starchy vegetables, such as green beans, broccoli, asparagus, or summer squash, will help you fill up with low-calorie choices. Think ahead. Learn important nutrition information ahead of time. Most [employer] provide calories, sodium, and fat content for their menu items. Check out www.C2[employer] Link for a listing of over 50,000 foods, including many restaurant items. You can also visit company-specific websites Dining Out Tips Dining out is tricky. You have less control over ingredients & portions so even when you think you re ordering healthy, it s likely way more calories & less nutrition than a similar meal you d make at home. Research shows people who do best losing weight & keeping it off don t dine out much only 2.5 times out of 21 meals in a week. So, when you do dine out, make sure to use these PRO TIPS to keep your body happy DINE OUT LIKE A PRO 1. RUIN Your Appetite. About 1.5 hrs before you go out, eat something to cut hunger so you don t get to the restaurant & dive head first into the breadbasket. Try a produce + protein snack such as an apple + almonds or celery + sunflower seed butter. 2. Know BEFORE You Go. Do a few minutes of research before you re swept up in a whirlwind of socializing & drinking. This could be as simple as perusing the online menu on your phone on the ride to the restaurant. 3. Order a [employer]-V[employer] BUNDLE. Pair a healthy superfood with a less-healthy craving. It s the only way to honor both your inner health nut and wild child. At a [facility] joint and really want the pulled pork? Get it - but instead of plopping it on a refined grain bun, ask to put it alongside a salad. 4. Limit FLAVORS. Research shows variety stimulates appetite, meaning tasting little bits of many different foods will trigger you to over eat. So if you find yourself facing a tableful of small plates or buffet-style eating, commit to your absolute favorites rather than sampling every option. 5. Entree + ONE. It s often not just the meal that racks up CRAP calories, it s also the add-on apps + drinks + desserts. Focus on your main and skip these extras, or at least just pick your favorite ONE. Smart: Pick an appetizer salad! When [employer] researchers gave women a 100-calorie appetizer of either a salad or garlic bread, those who had the tiny salad ended up eating 21% less of their main course. Foods that fight inflammation November 30, 2019 Doctors are learning that one of the best ways to reduce inflammation lies not in the medicine cabinet, but in the refrigerator. By following an anti-inflammatory diet you can fight off inflammation for good. What does an anti-inflammatory diet do? Your immune system becomes activated when your body recognizes anything that is foreign--such as an invading microbe, plant pollen, or chemical. This often triggers a process called inflammation. Intermittent bouts of inflammation directed at truly threatening invaders protect your health. However, sometimes inflammation persists, day in and day out, even when you are not threatened by a foreign invader. That's when inflammation can become your enemy. Many major diseases that plague us--including cancer, heart disease, diabetes, arthritis, depression, and Alzheimer's--have been linked to chronic inflammation. One of the most powerful tools to combat inflammation comes not from the pharmacy, but from the grocery store. Many experimental studies have shown that components of foods or beverages may have anti-inflammatory effects, says Dr. José Servin, professor of nutrition and epidemiology in the Department of Nutrition at the [employer]. Choose the right anti-inflammatory foods, and you may be able to reduce your risk of illness. Consistently pick the wrong ones, and you could accelerate the inflammatory disease process. Get simple tips to fight inflammation and stay healthy -- from [employer] experts. Protect yourself from the damage of chronic inflammation Click here to learn more Foods that cause inflammation Try to avoid or limit these foods as much as possible: refined carbohydrates, such as white bread and pastries New Zealander fries and other fried foods soda and other sugar-sweetened beverages red meat (burgers, steaks) and processed meat (hot dogs, sausage) margarine, shortening, and lard The health risks of inflammatory foods Not surprisingly, the same foods on an inflammation diet are generally considered bad for our health, including sodas and refined carbohydrates, as well as red meat and processed meats. Some of the foods that have been associated with an increased risk for chronic diseases such as type 2 diabetes and heart disease are also associated with excess inflammation, Dr. Servin says. It's not surprising, since inflammation is an important underlying mechanism for the development of these diseases. Unhealthy foods also contribute to weight gain, which is itself a risk factor for inflammation. Yet in several studies, even after researchers took obesity into account, the link between foods and inflammation remained, which suggests weight gain isn't the sole auto transport driver. Some of the food components or ingredients may have independent effects on inflammation over and above increased caloric intake, Dr. Servin says. Anti-inflammatory foods An anti-inflammatory diet should include these foods: tomatoes olive oil green leafy vegetables, such as spinach, kale, and collards nuts like almonds and walnuts fatty fish like salmon, mackerel, tuna, and sardines fruits such as strawberries, blueberries, cherries, and oranges Benefits of anti-inflammatory foods On the flip side are beverages and foods that reduce inflammation, and with it, chronic disease, says Dr. Servin. He notes in particular fruits and vegetables such as blueberries, apples, and leafy greens that are high in natural antioxidants and polyphenols--protective compounds found in plants. Studies have also associated nuts with reduced markers of inflammation and a lower risk of cardiovascular disease and diabetes. Coffee, which contains polyphenols and other anti-inflammatory compounds, may protect against inflammation, as well. Anti-inflammatory diet To reduce levels of inflammation, aim for an overall healthy diet. If you're looking for an eating plan that closely follows the tenets of anti-inflammatory eating, consider the Mediterranean diet, which is high in fruits, vegetables, nuts, whole grains, fish, and healthy oils. In addition to lowering inflammation, a more natural, less processed diet can have noticeable effects on your physical and emotional health. A healthy diet is beneficial not only for reducing the risk of chronic diseases, but also for improving mood and overall quality of life, Dr. Servin says. Five principles of a healthy diet While details may vary from diet to diet, all healthy eating plans have these five principles in common: 1. Lots of plants. Plant foods--vegetables, fruits, legumes, whole grains, nuts, and seeds--offer a wealth of vitamins and minerals, as well as fiber and healthful compounds called phytochemicals (literally plant chemicals, natural substances in plants that offer humans a range of health benefits, including antioxidant, anti-inflammatory, and even anti-cancer activity). At the same time, while many plant foods are high in nutrients, they are relatively low in calories. The combination of high nutrient content and low calories--a quality known as nutrient density--means that a plantheavy diet can be good for both health and weight loss. Because people often underestimate how large their portions of fruits and vegetables should be, [employer] devised the [employer] Healthy Eating Plate (see Figure 1, at left) to provide a graphic representation of a healthy dinner. Fully half the plate contains produce. 2. Adequate protein. Abundant research shows it s important to eat enough protein, but there are many ways o get that protein, and some are more healthful than others. People who limit how much meat they eat tend to have lower risks or chronic diseases. Plant protein sources (beans, lentils, soy foods, nuts, seeds) and seafood offer the most health benefits. Getting enough protein, along with physical activity, is important for staying strong, healthy, and independent. 3. Minimally processed foods. A 2019 National Institutes of Health study definitively showed that eating a diet high in ultra-processed foods causes weight gain and unhealthy shifts in blood sugar and blood cholesterol. For the healthiest diet, rely as much as possible on whole foods (that is, unprocessed foods, such as broccoli, apples, and almonds) and minimally processed foods (such as plain yogurt, canned tuna, and naturalpeanut butter). Processing tends to strip away nutrients while adding extra fats, sugars, and sodium, not to mention other additives and preservatives. 4. Limited saturated fats, added sugars, and sodium. The U.S. government s Dietary Guidelines for Americans recommend limiting saturated fat intake to less than 10% of daily calories. The same goes for added sugars (sugars added during processing). If you have a 2,443-zsuapsu-d-day diet, that means that no more than 200 calories a day should come from added sugars. As for sodium, keep it below 2,300 milligrams per day. The average [place] consumes more than 3,400 milligrams per day. 5. Balance. To meet nutrient needs, it s important to choose a variety of nutrient-dense foods across and within all food groups (see What the food groups do for you, page 10). Choosing nutrient-dense foods helps you get the nutrients you need without taking in too many calories. What the Food Groups Do For You Harp Regulator are always stressing the importance of a balanced diet, and for good reason. Each food group--and each food within a given group--offers a different nutrient package. This doesn t mean that you have to cover each group in every meal. But over the course of a day, you should have something from each group. And over the longer term--say, a week or a month--you should strive to eat a variety of foods from within each group, particularly vegetables and fruits.Here s a quick overview of what each group has to offer--and how much we should all be consuming. Vegetables and fruits. Fruit and vegetable intake is associated with reduced risk of a number of chronic diseases, including cardiovascular disease, type 2 diabetes, certain kinds of cancer, and dementia. Some of these benefits come from the nutrients and fiber in produce. These include not only the obvious vitamins and minerals, but also phytochemicals ranging from the anti-carcinogenic isothiocyanates in cruciferous vegetables like broccoli and cauliflower to antioxidants like vitamin C and hesperetin in citrus fruits. Fiber, too, is associated with a host of benefits, including bowel health, increased insulin sensitivity, and slower digestion that makes you feel king longer. Increasing your intake of fruits and vegetables may also improve your overall diet simply by displacing less healthy foods. The USDA now recommends daily consumption of 2 to 3 cups (roughly four to six half-cup servings) of vegetables and another 1 to 2 cups of fruit (three to four half-cup servings; see Table 1, page 9).Whole grains. Carbohydrates are primarily an energy source to fuel your body. But whole grains--such as quinoa, barley, and brown rice--do even more for you. Whole grains come packaged with their natural fiber, vitamins, minerals, and phytochemicals, so they deliver additional health benefits. Perhaps that s why research shows that people who eat whole grains tend to live longer and have a lower risk of chronic diseases, especially cardiovascular disease. By contrast, refined grains (such as white flour) have been stripped of their fiber-rich bran (the outer coating of the kernel) as well as the vitamin- and mineral-packed germ (see Figure 2, at left). For people up to age 50, the recommended intake is 38 grams for men and 25 grams for women (unless they are or , in which case the recommendation goes up to 28 grams and 29 grams, respectively). The recommendation is lower for people over age 50: 30 grams for men, and 21 grams for women. Dairy. Our first food as infants is milk, and dairy is associated with improved bone health, especially in children and adolescents. While adults don t need to consume dairy products, dairy foods offer protein and an array of vitamins and minerals, including calcium. Some dairy foods (English yogurt, cottage cheese, other cheeses) are better sources of protein than others (milk, regular yogurt), but keep in mind that many types of cheese are high in sodium and saturated fat. If you can t consume dairy or prefer not to, make sure you meet your calcium needs through other foods or supplements. Protein. You need protein in order to maintain your muscles, bones, skin, and every other organ and tissue in your body. Protein also helps you stay satisfied and manage hunger. Not only is protein important in your overall diet, but emerging research suggests that you should have some at all three meals, especially if you are older. However, keep in mind that while it s important to get enough protein, more is not necessarily better!Protein foods are a diverse group, including both animal sources (fish and seafood, meats, poultry, eggs, and dairy) and plant sources (soy products, pulses--that is, beans, lentils, chickpeas, and dry peas--and nuts and seeds). As with any food, quality counts: some protein-rich foods have more health benefits than others. [place] and other oily fish provide heart-healthy omega-3 fatty acids. Pulses and whole or minimally processed soy foods like tofu, tempeh, and edamame offer phytochemicals and fiber. On the other hand, fatty or processed meats come with excess saturated fat and other components that don t support optimal health. Fats and oils. Fat is an essential element of the diet. It s a major source of energy. In addition, the body requires fat to make cell membranes, provide a protective coating for nerves, maintain healthy skin and hair, and perform other vital functions.After some decades of thinking that we needed to limit fat to be healthy, scientists now know that it s not how much fat we eat (within reason), but the quality of the fat. For example, it s crystal clear that we need to avoid artificial trans fats--the hydrogenated vegetable oils that were once used in a variety of processed foods to help keep them from spoiling. Fortunately, those are largely gone from the food supply now, as the result of an FDA ruling in August 2017 banning them from foods sold in [place] grocery stores and restaurants. As for saturated fats--the kind found in animal products like meat and cheese--while limited amounts (less than 10% of daily calories) are fine for most people, they may contribute to a number of health problems, including increased LDL (bad) cholesterol and chronic inflammation, especially when eaten in excess.Most of the fat we eat should be unsaturated. This includes polyunsaturated fats from fatty fish like salmon, walnuts, sunflower seeds, flaxseeds, and some vegetable oils, as well as monounsaturated fats from nuts, peanuts, avocados, olive oil, and canola oil. Unsaturated fats have a number of benefits for health, especially cardiovascular health. A shorthand way of thinking of the different types of fats is this: if they are solid at room temperature, like the marbling in meats, they may lead to stiffer arteries (and therefore high blood pressure) as your body deposits them in arterial linings. If they are liquid at room temperature, like the olive oil you drizzle on your salad, they will help keep arteries more flexible. documented in this encounter [facility] 05-16-2023 Miscellaneous Notes Patient has been identified by name and date of : Yes, Provider Dr Javed Date 05/16/2023 Time 9:29 am Requested Prescriptions Pending Prescriptions Disp Refills omeprazole (PRILOSEC) 40 mg capsule 90 capsule 1 Sig: Take 1 capsule by mouth once daily. RX INSTRUCTIONS: Patient aware RX will be sent to pharmacy. No need to notify patient. AMNA Worley 04/2023 Nov 10/2023 Last refill: 10/2022 documented in this encounter [facility] 04-18-2023 History of Present illness Narrative Chief Complaint No chief complaint on file. HPI Chika Good is a 52 year old female who presents here today for Above Complaints.. Patient presents for routine follow up. Patient reports she has an external hemorrhoid and has been using tucks pads and preparation H cream although not as often as she should per patient report. Patient reports at times severe itching in the anus as well as occasional bleeding after a bowel movement. Past medical history, appointments, medications, allergies reviewed. Previous Medical History PAST MEDICAL HISTORY Diagnosis Date Abnormal glandular Papanicolaou smear of cervix Abn. Pap smear (cervix) Acute gastritis without mention of hemorrhage Allergic rhinitis, seasonal Anxiety 07/07/2012 Chronic tension-type headache, intractable 03/17/2016 Depression 07/07/2012 Encounter for routine gynecological examination 01/21/[address] 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 Well adult exam 01/21/2020 Last done 10/26/21 Previous Surgical History PAST SURGICAL HISTORY Procedure Laterality Date ADENOIDECTOMY PRIMARY <AGE 13 Adenoidectomy BREAST REDUCTION 09/2016 BX BREAST W/DEVICE 1ST LESION ULTRASOUND GUID Left 05/03/2015 U/S Needle core upper mid left breast DELIVERY ONLY 11/2007 [facility] COLONOSCOPY FLX DX W/COLLJ SPEC WHEN PFRMD 2003 Colonoscopy COLONOSCOPY FLX DX W/COLLJ SPEC WHEN PFRMD 08/21/2008 Colonoscopy COLONOSCOPY FLX DX W/COLLJ SPEC WHEN PFRMD 01/14/2015 COLONOSCOPY FLX DX W/COLLJ SPEC WHEN PFRMD 02/04/2020 Colonoscopy- repeat 5 year CONIZATION CERVIX W/WO D&C RPR ELTRD EXC 1994 LEEP-Cervix D&C, DIAG AND/OR THERAPEUTIC 12/2021 EGD 1992 REMOVAL OF FOREIGN BODY EGD TRANSORAL BIOPSY SINGLE/MULTIPLE 06/12/2008 ESOPHAGOGASTRODUODENOSCOPY TRANSORAL DIAGNOSTIC 05/16/2017 EGD ESOPHAGOGASTRODUODENOSCOPY TRANSORAL DIAGNOSTIC 02/04/2020 EGD- repeat in 1 year ESOPHAGOSCOPY FLEX BALLOON DILAT <30 MM DIAM 06/12/2008 SEPTOPLASTY 08/29/2017 Dr. Manny Sexton-nasal airway obstruction. deviated septum, inferior turbinate hypertrophy TONSILLECTOMY PRIMARY/SECONDARY <AGE 13 Tonsillectomy Family History FAMILY HISTORY Problem Relation Age of Onset Asthma Mother Hypertension Father Colon Cancer Father Colon polyps Colon Cancer Maternal Grandfather Colon Cancer Paternal Grandfather Blood Disease Sister Asthma Brother Patient Allergies ALLERGIES No Known Allergies Current Medications Current Outpatient Medications on File Prior to Visit Medication Sig atorvastatin (LIPITOR) 20 mg tablet Take 1 tablet by mouth daily at bedtime. For cholesterol. fluticasone-salmeterol (ADVAIR DISKUS) 250-50 mcg/dose inhaler Inhale 1 Puff as instructed two times a day. Rinse and gargle mouth after use with water. albuterol HFA (VENTOLIN HFA) 90 mcg/actuation inhaler Inhale 2 Puffs as instructed every 4 hours as needed. omeprazole (PRILOSEC) 40 mg capsule Take 1 capsule by mouth once daily. OTC PRODUCT once daily. Tumeric CHOLECALCIFEROL, VITAMIN D3, ORAL Take by mouth as directed. Combined with omega 3 DUPIXENT SYRINGE 300 mg/2 mL injection No current facility-administered medications on file prior to visit. Social History Social History Tobacco Use Smoking status: Former Years: 15 Types: Cigarettes Quit date: 07/12/2006 Years since quittin.7 Smokeless tobacco: Never Tobacco comments: SOCIAL SMOKER IN PAST Vaping Use Vaping Use: Never used Substance Use Topics Alcohol use: Yes Comment: rare,NOT WHILE Drug use: No Review of Symptoms REVIEW OF SYSTEMS SEE HPI EXAM: BP 104/72 Pulse 84 Resp 14 Wt 103.9 kg (229 lb) LMP 11/01/2022 (Exact Date) BMI 40.57 kg/m PHYSICAL EXAMINATION: General appearance: Well appearing, alert, in no acute distress, well-hydrated, well nourished. Lungs: Lungs clear to auscultation. No wheezing, rhonchi, rales. Heart: RRR without murmur, gallop, or rubs. No ectopy Health Maintenance List Influenza Vaccine(1) due on 11/12/2022 Shingrix Vaccine(1 of 2) due on 05/03/2023 Annual PCP Team Chronic Disease Visit due on 11/02/2023 Mammogram Screening due on 01/13/2024 Colorectal Cancer Screening due on 02/03/2025 Diabetes Screening due on 11/01/2025 Pap Testing due on 05/10/2027 HPV Testing due on 05/10/2027 Lipid Screening due on 11/02/2027 DTaP,Tdap,Td Vaccine(3 - Td or Tdap) due on 11/01/2032 Hepatitis C Screening Completed Covid-19 Vaccine Completed Pneumococcal Vaccine Completed Hepatitis B Vaccine Discontinued Spirometry Discontinued HIV Screening Discontinued ASSESSMENT/PLAN: 1. Hemorrhoids, unspecified hemorrhoid type - ICD9: 455.6, ICD10: K64.9 (primary diagnosis) - HYDROCORTISONE ACETATE 25 MG RECTAL SUPPOSITORY 2. Hyperlipidemia, mixed - ICD9: 272.2, ICD10: E78.2 - Control undetermined, due for labs - Continue current medications - Counseled on healthy diet and regular exercise - Discussed need for and benefit of weight loss. BMI 40.57 kg/(m^2) 3. GERD without esophagitis - ICD9: 530.81, ICD10: K21.9 - Discussed lifestyle modifications including losing weight, limiting caffeine, no meals three hours before sleep, and head of bed elevation - Continue treatment with Pepcid 40 mg QD 4. Moderate persistent asthma without complication - ICD9: 493.90, ICD10: J45.40 - Moderate persistent asthma stable - Continue current medications - Avoidance of triggers recommended 5. LITO (obstructive sleep apnea) - ICD9: 327.23, ICD10: G47.33 -Does not wear cpap currently 6. Weight gain - ICD9: 783.1, ICD10: R63.5 - CONSULT TO ENDOCRINOLOGY - CONSULT TO [facility] WEIGHT [facility]NAG[facility] 7. Class 3 severe obesity with body mass index (BMI) of 40.0 to 44.9 in adult, unspecified obesity type, unspecified whether serious comorbidity present (HCC) - ICD9: 278.01, V85.41, ICD10: E66.01, Z68.41 - CONSULT TO [facility] WEIGHT [facility]NAG[facility] Latrice Etienne APRN.[employer] documented in this encounter [facility] 01-12-2023 History of Present illness Narrative Scan on 01/12/2023 11:24 AM by Provider, External, PADadaC: Mammography documented in this encounter [facility] 09-27-2022 History of Present illness Narrative Patient presents with: Diarrhea: abdominal cramping x 5 days HPI: Having diarrhea for 5 days. She returned from [facility] this weekend and the diarrhea is not improving. Positive symptoms: diarrhea, abdominal cramping, recent travel, has diarrhea also. Negative symptoms: Fever, Nausea, Vomiting, blood in stool, dizziness, recent antibiotic use OTC: was taking pepto and imodium PAST MEDICAL HISTORY Diagnosis Date Abnormal glandular Papanicolaou smear of cervix Abn. 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 For cholesterol. OTC PRODUCT once daily. Tumeric fluticasone-salmeterol (ADVAIR DISKUS) 250-50 mcg/dose inhaler Inhale 1 Puff as instructed twice daily. Rinse and gargle mouth after use with water. omeprazole (PRILOSEC) 40 mg capsule Take 1 capsule by mouth once daily. albuterol HFA (VENTOLIN HFA) 90 mcg/actuation inhaler Inhale 2 Puffs as instructed every 4 hours as needed. Do no substitute with ProAir. CHOLECALCIFEROL, VITAMIN D3, ORAL Take by mouth as directed. Combined with omega 3 DUPIXENT SYRINGE 300 mg/2 mL injection omega 8-bme-cty-fish oil 250-500-1,000 mg cap Take 1 capsule by mouth once daily. apremilast (OTEZLA) 30 mg tablet Take 1 tablet by mouth once daily. Per derm (Patient not taking: Reported on 09/27/2022) No current facility-administered medications for this visit. ALLERGIES: ALLERGIES No Known Allergies VITALS: BP 102/68 Pulse 86 Temp 36.2 C (97.2 F) Resp 16 Wt 98 kg (216 lb) LMP 01/10/2020 (Approximate) SpO2 97% BMI 38.76 kg/m PHYSICAL EXAM: GEN: Pleasant, in no acute distress. HEENT: PERRL, EOMI, conjunctiva clear Throat: moist mucous membranes, Neck: supple, no thyromegaly, no lymphadenopathy HEART: regular rate and rhythm, no murmurs LUNGS: clear to auscultation, no wheezes or crackles, no increased WOB ABD: Soft, non-distended, diffusely uncomfortable, no masses ASSESSMENT/PLAN: 1. Traveler's diarrhea - ICD9: 009.2, ICD10: A09 Hydration with fluids encouraged. Resume normal solid intake as tolerated. Hand hygiene to reduce transmission. Follow up in the ER with signs of dehydration, increasing abdominal pain, high fever, or blood in vomit or stool. - ENTERIC BACTERIAL PANEL BY PCR - OVA + PARA MICROSCOPIC - AZITHROMYCIN 500 MG TABLET Manny Kendrick MD documented in this encounter [facility] 05-17-2022 History of Present illness Narrative Scan on 05/14/2022 4:57 PM by External Provider: GLOBAL SAFETY OFFICER HM updated Lakisha Cruz MA documented in this encounter [facility] 05-10-2022 Note [facility] Pap Smear Specimen Adequacy May 10, 2022 11:59pm Comment . Satisfactory for evaluation. No endocervical component is identified. Comment on above: Satisfactory for asif luation. No endocervical component is identified. 05-10-2022 Note [facility] Pap Smear Specimen Adequacy May 11, 2022 12:59am Comment . Satisfactory for evaluation. No endocervical component is identified. Comment on above: Satisfactory for asif luation. No endocervical component is identified. 05-10-2022 Note [facility] Pap Smear Specimen Adequacy May 11, 2022 12:59am Comment . Satisfactory for evaluation. No endocervical component is identified. Comment on above: Satisfactory for asif luation. No endocervical component is identified. 05-10-2022 Note [facility] Pap Smear Specimen Adequacy May 11, 2022 12:59am Comment . Satisfactory for evaluation. No endocervical component is identified. Comment on above: Satisfactory for asif luation. No endocervical component is identified. 05-06-2022 Miscellaneous Notes Formattin g of this note might be different from the original. Pt notified of results & instructions, pt voiced understanding. Azeb Coats LPN Let patient know that ISABELLE was mildly elevated but the rest of the reflex titers were negative. Would recommend a repeat ISABELLE in 2 months. Abbey Smith PA-C documented in this encounter [facility] 05-04-2022 Miscellaneous Notes Formattin g of this note might be different from the original. Pt notified of instructions & that Rx has been sent to the pharmacy. Azeb Coats LPN She can finish up the 10mg by taking 2 but also, I sent in new prescription. The following approved medication requests have been transmitted electronically. Requested Prescriptions Signed Prescriptions Disp Refills atorvastatin (LIPITOR) 20 mg tablet 90 tablet 1 Sig: Take 1 tablet by mouth daily at bedtime. For cholesterol. Authorizing Provider: ABBEY SMITH PA-C Pt notified of results and provider message. Pt is willing to increase dose of lipitor. Jessica Funk LPN Left message for patient to call office back [place] Horton Ma Let patient know that all her labs except for cholesterol is okay. Waiting for isabelle yet though and will call once those are available. Her cholesterol has increased. LDL is up to 138 with goal under 100. Is she willing to increase lipitor to 20mg? Abbey Smith PA-C documented in this encounter [facility] 04-20-2022 Miscellaneous Notes Formattin g of this note is different from the original. The following approved medication requests have been transmitted electronically. Requested Prescriptions Signed Prescriptions Disp Refills albuterol HFA (VENTOLIN HFA) 90 mcg/actuation inhaler 24 g 1 Sig: Inhale 2 Puffs as instructed every 4 hours as needed. Do no substitute with ProAir. Authorizing Provider: CLARK JAVED MD Last office visit: 10/26/21 F/u scheduled: 05/03/22 Nay Cowart Ma documented in this encounter [facility] 10-30-2021 Miscellaneous Notes Formattin g of this note might be different from the original. noted Pt notified of results. Pt has not scheduled with concrete mason yet but states she will call [place] to schedule an appointment. Pt states she sees Dr Lainez. Advised pt would fax copy of results to her office to review. Pt verbalizes understanding. Results have been faxed. Rylie Hardy LPN US shows a cervical polyp and some cyst. Has she made an appointment with her concrete mason yet? Abbey Smith PA-C documented in this encounter [facility] 10-29-2021 Miscellaneous Notes Formattin g of this note might be different from the original. Patient notified of results and provider's instructions. Patient verbalizes understanding. Rylie Hardy LPN Repeat WBC is normal. Hold off on atb for now. I should have US results by tomorrow. documented in this encounter [facility] 10-29-2021 History of Presen t illness Narrative Radiology Service Progress Note PATIENT NAME: Chika Good DATE OF SERVICE: October 29, 2021 TIME: 3:48 PM PATIENT IDENTITY VERIFICATION COMPLETED USING TWO (2) IDENTIFIERS: Name and Date of confirmed by patient verbally. FALL SCREENING: Has the patient had 2 falls in the last year or 1 fall with injury or currently using an Ambulatory Assistive Device (Walker, Cane, Wheelchair, Crutches, etc.)? No PATIENT GENDER DATA: Female. status: : No status: N/A PATIENT RELEVANT IMPLANT DATA REVIEWED: Not Applicable RADIOLOGY DEPARTMENT: Ultrasound PERIPHERAL IV DATA: Not applicable SIGNED BY: Shira Avalos RDMS RVT October 29, 2021 3:48 PM documented in this encounter [facility] 10-27-2021 Miscellaneous Notes Formattin g of this note might be different from the original. Patient notified of results and provider's instructions. Patient verbalizes understanding. Rylie Hardy LPN WBC is elevated. Urine shows small amount of blood. I would like to get another urine to send for culture today. I'm also going to put her on atb. Need the urine before she start antibiotics Potassium level is slightly low. Recheck in 1 week. Will recheck CBC then too. Rest of her labs are normal. Abbey Smith PA-C documented in this encounter [facility] 10-26-2021 History of Presen t illness Narrative Chief Complaint Patient presents with: Physical Abdominal Pain: Lower abdomen X 1 month HPI Chika Good is a 51 year old female who presents here today for physical. Patient with hx of hyperlipidemia, LITO, Asthma, GERD, allergies, depression, anxiety, obesity and those as below. Patient states she has had lower abdominal pain over the past month. Pain is kind of across her abdomen. States she feels like she needs to have a BM or pass gas. She noted pain during intercourse. Stool has been normal consistency for her. No nausea or vomiting. 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 Otherwise doing well. Past medical history, appointments, medications, allergies reviewed. Previous Medical History PAST MEDICAL HISTORY Diagnosis Date Abnormal glandular Papanicolaou smear of cervix Abn. 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 Unspecified asthma(493.90) seasonal Previous Surgical History PAST SURGICAL HISTORY Procedure Laterality Date ADENOIDECTOMY PRIMARY <AGE 13 Adenoidectomy BREAST REDUCTION 09/2016 BX BREAST W/DEVICE 1ST LESION ULTRASOUND GUID Left 05/03/2015 U/S Needle core upper mid left breast DELIVERY ONLY 11/2007 [facility] COLONOSCOPY FLX DX W/COLLJ SPEC WHEN PFRMD 2003 Colonoscopy COLONOSCOPY FLX DX W/COLLJ SPEC WHEN PFRMD 08/21/2008 Colonoscopy COLONOSCOPY FLX DX W/COLLJ SPEC WHEN PFRMD 01/14/2015 COLONOSCOPY FLX DX W/COLLJ SPEC WHEN PFRMD 02/04/2020 Colonoscopy- repeat 5 year CONIZATION CERVIX W/WO D&C RPR ELTRD EXC 1993 LEEP-Cervix EGD 1991 REMOVAL OF FOREIGN BODY EGD TRANSORAL BIOPSY SINGLE/MULTIPLE 06/12/2008 ESOPHAGOGASTRODUODENOSCOPY TRANSORAL DIAGNOSTIC 05/16/2017 EGD ESOPHAGOGASTRODUODENOSCOPY TRANSORAL DIAGNOSTIC 02/04/2020 EGD- repeat in 1 year ESOPHAGOSCOPY FLEX BALLOON DILAT <30 MM DIAM 06/12/2008 SEPTOPLASTY 08/29/2017 Dr. Manny Sexton-nasal airway obstruction. deviated septum, inferior turbinate hypertrophy TONSILLECTOMY PRIMARY/SECONDARY <AGE 13 Tonsillectomy Family History FAMILY HISTORY Problem Relation Age of Onset Asthma Mother Hypertension Father Colon Cancer Father Colon polyps Colon Cancer Maternal Grandfather Colon Cancer Paternal Grandfather Blood Disease Sister Asthma Brother Patient Allergies ALLERGIES No Known Allergies Current Medications Current Outpatient Medications on File Prior to Visit Medication Sig albuterol HFA (VENTOLIN HFA) 90 mcg/actuation inhaler Inhale 2 Puffs as instructed every 4 hours as needed. Do no substitute with ProAir. fluticasone-salmeterol (ADVAIR DISKUS) 250-50 mcg/dose inhaler Inhale 1 Puff as instructed twice daily. Rinse and gargle mouth after use with water. atorvastatin (LIPITOR) 10 mg tablet Take 1 tablet by mouth daily at bedtime. For cholesterol. CHOLECALCIFEROL, VITAMIN D3, ORAL Take by mouth as directed. pantoprazole DR (PROTONIX) 40 mg tablet Take 1 tablet by mouth once daily. DUPIXENT SYRINGE 300 mg/2 mL injection apremilast (OTEZLA) 30 mg tablet Take 1 tablet by mouth once daily. Per derm BIOTIN ORAL Take by mouth as directed. (Patient not taking: Reported on 09/01/2021 ) phenazopyridine (PYRIDIUM, GERIDIUM) 200 mg tablet Take 1 tablet by mouth three times daily as needed. (Patient not taking: Reported on 09/01/2021 ) omega 3-enn-xum-fish oil 250-500-1,000 mg cap Take 1 capsule by mouth once daily. No current facility-administered medications on file prior to visit. Social History Social History Tobacco Use Smoking status: Former Years: 15.00 Types: Cigarettes Quit date: 07/12/2006 Years since quittin. Smokeless tobacco: Never Tobacco comments: SOCIAL SMOKER IN PAST Vaping Use Vaping Use: Never used Substance Use Topics Alcohol use: Yes Comment: rare,NOT WHILE Drug use: No Review of Symptoms REVIEW OF SYSTEMS GENERAL: No weight loss, malaise or fevers HEENT: No changes in hearing or vision, no nose bleeds or other nasal problems NECK: Negative for lumps, goiter, pain and significant neck swelling RESPIRATORY: Negative for cough, hemoptysis, wheezing, COPD, dyspnea or shortness of breath CARDIOVASCULAR: Negative for chest pain, leg swelling, hypertension, CHF or palpitations GI: See HPI : No history of dysuria, frequency or incontinence MUSCULOSKELETAL: Negative for joint pain or swelling, back pain or muscle pain SKIN: Negative for lesions, rash, and itching PSYCH: Negative for sleep disturbance, mood disorder and recent psychosocial stressors HEMATOLOGY/LYMPHOLOGY: Negative for prolonged bleeding, bruising easily or swollen nodes ENDOCRINE: Negative for cold or heat intolerance, polyuria, polydipsia and goiter NEURO: No history of headaches, syncope, paralysis, seizures or tremors EXAM: BP 106/86 (BP Site: Left Arm, BP Position: Sitting, BP Cuff Size: Large Adult) Pulse 110 Temp 36.7 C (98 F) Resp 16 Ht 159 cm (5' 2.6) Wt 96.2 kg (212 lb) LMP 01/10/2020 (Approximate) BMI 38.04 kg/m General Appearance: Well appearing, alert, in no acute distress, well-hydrated, well nourished. and Overweight. Skin: Skin color, texture, turgor normal, no suspicious rashes or lesions. Head: Normocephalic, no masses, lesions, tenderness or abnormalities. Eyes: Anicteric sclera. Pupils are equally round and reactive to light. Extraocular movements are intact. . Ears: External ears normal, canals clear, TMspearly barnett. Nose/Sinuses: Not examined, mask. Oropharynx: deferred= mask. Neck: Supple, no adenopathy; thyroid symmetric, normal size, no bruits. Lungs: Lungs clear to auscultation. No wheezing, rhonchi, rales.. Heart: RRR without murmur, gallop, or rubs. No ectopy. Abdomen: BS+. Pain in LLQ and RLQ to palp. No suprapubic pain. . Extremities: No deformities, edema, skin discoloration, clubbing or cyanosis. Good capillary refill. . Musculoskeletal: No joint swelling, deformity, or tenderness. Peripheral Pulses: Normal. Neurologic: Gait normal. Reflexes normal and symmetric. Sensation grossly intact.. Health Maintenance List HEPATITIS B(1 of 3 - 3-dose series) Never done SPIROMETRY Never done SHINGRIX VACCINE(1 of 2) Never done PNEUMOCOCCAL(2 - PCV) due on 09/19/2013 MAMMOGRAM due on 10/07/2019 PAP TESTING due on 04/07/2020 HPV TESTING due on 04/07/2020 COVID-19 VACCINE(5 - Booster for Pfizer series) due on 10/13/2021 INFLUENZA(1) due on 11/12/2021 DTAP,TDAP,TD(2 - Td or Tdap) due on 03/29/2022 ANNUAL PCP TEAM CHRONIC DISEASE VISIT due on 09/01/2022 DIABETES SCREEN due on 03/03/2024 COLORECTAL CANCER SCREENING due on 02/03/2025 LIPID SCREEN due on 03/03/2026 HEPATITIS C SCREENING Completed HIV SCREENING Discontinued Data reviewed N/a ASSESSMENT/PLAN: 1. Well adult exam - ICD9: V70.0, ICD10: Z00.00 (primary diagnosis) - Counseled on healthy diet and regular exercise - Calcium intake with supplements or by diet of 1000 mg/day for under 50, 4603-8349 mg/day for 50+ - patient is checking with insurance on coverage for vaccines 2. Hyperlipidemia, mixed - ICD9: 272.2, ICD10: E78.2 - to be determined upon return of lab results - Encouraged following a low carbohydrate, healthy oil intake diet. - Continue current therapy. 3. LITO (obstructive sleep apnea) - ICD9: 327.23, ICD10: G47.33 stable 4. GERD without esophagitis - ICD9: 530.81, ICD10: K21.9 - stable 5. Abnormal urine odor - ICD9: 791.9, ICD10: R82.90 Check: - URINALYSIS, WITH MICROSCOPIC 6. Lower abdominal pain - ICD9: 789.09, ICD10: R10.30 - check US - US FEMALE PELVIS TRANSABD COMPLETE - US FEMALE PELVIS TRANSVAG 7. Dyspareunia in female - ICD9: 625.0, ICD10: N94.10 Check US Advise follow up with concrete mason - US FEMALE PELVIS TRANSABD COMPLETE - US FEMALE PELVIS TRANSVAG 8. Chronic tension-type headache, intractable - ICD9: 339.12, ICD10: G44.221 stable 9. Depression, unspecified depression type - ICD9: 311, ICD10: F32.A stable 10. Anxiety - ICD9: 300.00, ICD10: F41.9 stable 11. Obesity (BMI 35.0-39.9 without comorbidity) - ICD9: 278.00, ICD10: E66.9 Stable - Behavioral intervention Abbey Smith PA-C documented in this encounter [facility] 09-23-2021 Miscellaneous Notes The following approved medication requests have been transmitted electronically. Signed Prescriptions Disp Refills albuterol HFA (VENTOLIN HFA) 90 mcg/actuation inhaler 24 g 1 Sig: Inhale 2 Puffs as instructed every 4 hours as needed. Do no substitute with ProAir. LEIGH: No Authorizing Provider: CLARK JAVED fluticasone-salmeterol (ADVAIR DISKUS) 250-50 mcg/dose inhaler 3 Each 1 Sig: Inhale 1 Puff as instructed twice daily. Rinse and gargle mouth after use with water. LEIGH: No Authorizing Provider: CLARK JAVED atorvastatin (LIPITOR) 10 mg tablet 30 tablet 5 Sig: Take 1 tablet by mouth daily at bedtime. For cholesterol. LEIGH: No Authorizing Provider: CLARK JAVED MD Pt scheduled for physical and will get lab work done. She declines lab apt and will walk in. Patient has been identified by name and date of : Yes Patient phones for refill(s): Pending Prescriptions Disp Refills ALBUTEROL SULFATE HFA 90 MCG/ACTUATION AEROSOL INHALER 24 g 1 Sig: Inhale 2 Puffs as instructed every 4 hours as needed. Do no substitute with ProAir. LEIGH: No FLUTICASONE 250 MCG-SALMETEROL 50 MCG/DOSE BLISTR POWDR FOR INHALATION 3 Each 1 Sig: Inhale 1 Puff as instructed twice daily. Rinse and gargle mouth after use with water. LEIGH: No Refused Prescriptions Disp Refills atorvastatin (LIPITOR) 10 mg tablet 30 tablet 5 Sig: Take 1 tablet by mouth daily at bedtime. For cholesterol. LEIGH: No Date of last office visit in primary care: 09/01/21 next apt 10/26/21 physical and will get labs done ahead of time. Last 2 Encounter Wt Readings: Date: Wt: 09/01/2021 95.3 kg (210 lb) 03/03/2021 95.7 kg (211 lb) Previous labs/tests for medication: Cholesterol: HDL Cholesterol (mg/dL) Date Value 07/31/2018 43 HDL Cholesterol, Nonfasting (mg/dL) Date Value 03/03/2021 40 LDL Cholesterol (mg/dL) Date Value 07/31/2018 110 LDL Cholesterol, Nonfasting (mg/dL) Date Value 03/03/2021 130 ALT (U/L) Date Value 03/03/2021 16 Non HDL Cholesterol, Nonfasting (mg/dL) Date Value 03/03/2021 155 Please advise. Thank you. Mercedes Duran LPN documented in this encounter [facility] 09-01-2021 History of Presen t illness Narrative Chief Complaint Patient presents with: Physical HPI Chika Good is a 50 year old female who presents here today for memory concerns. Patient was scheduled for physical however she wants to focus on her memory. States she is struggling with her memory on a daily basis now. In the past 8 months is when she is starting to notice it. She will walk into a room and forgets why she went into the room. She will go to [facility] to [facility] prescription and makes a list of things she needs. Will get everything on the list but then forgot the prescription. She is perimenopausal and symptoms seem to be worse since noticing these changes.. Feels like she may have always had some trouble completing tasks but was able to get by. Does feel like she has a lot going on but doesn't necessarily feel this is different. Has trouble focusing on people who are in conversation with her or giving her instructions for work. Past medical history, appointments, medications, allergies reviewed. Previous Medical History PAST MEDICAL HISTORY Diagnosis Date Abnormal glandular Papanicolaou smear of cervix Abn. 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 Unspecified asthma(493.90) seasonal Previous Surgical History PAST SURGICAL HISTORY Procedure Laterality Date ADENOIDECTOMY PRIMARY <AGE 13 Adenoidectomy BREAST REDUCTION 09/2016 BX BREAST W/DEVICE 1ST LESION ULTRASOUND GUID Left 05/03/2015 U/S Needle core upper mid left breast DELIVERY ONLY 11/2007 [facility] COLONOSCOPY FLX DX W/COLLJ SPEC WHEN PFRMD 2003 Colonoscopy COLONOSCOPY FLX DX W/COLLJ SPEC WHEN PFRMD 08/21/2008 Colonoscopy COLONOSCOPY FLX DX W/COLLJ SPEC WHEN PFRMD 01/14/2015 COLONOSCOPY FLX DX W/COLLJ SPEC WHEN PFRMD 02/04/2020 Colonoscopy- repeat 5 year CONIZATION CERVIX W/WO D&C RPR ELTRD EXC 1994 LEEP-Cervix EGD 1991 REMOVAL OF FOREIGN BODY EGD TRANSORAL BIOPSY SINGLE/MULTIPLE 06/12/2008 ESOPHAGOGASTRODUODENOSCOPY TRANSORAL DIAGNOSTIC 05/16/2017 EGD ESOPHAGOGASTRODUODENOSCOPY TRANSORAL DIAGNOSTIC 02/04/2020 EGD- repeat in 1 year ESOPHAGOSCOPY FLEX BALLOON DILAT <30 MM DIAM 06/12/2008 SEPTOPLASTY 08/29/2017 Dr. Manny Sexton-nasal airway obstruction. deviated septum, inferior turbinate hypertrophy TONSILLECTOMY PRIMARY/SECONDARY <AGE 13 Tonsillectomy Family History FAMILY HISTORY Problem Relation Age of Onset Asthma Mother Hypertension Father Colon Cancer Father Colon polyps Colon Cancer Maternal Grandfather Colon Cancer Paternal Grandfather Blood Disease Sister Asthma Brother Patient Allergies ALLERGIES No Known Allergies Current Medications Current Outpatient Medications on File Prior to Visit Medication Sig CHOLECALCIFEROL, VITAMIN D3, ORAL Take by mouth as directed. albuterol HFA (VENTOLIN HFA) 90 mcg/actuation inhaler Inhale 2 Puffs as instructed every 4 hours as needed. Do no substitute with ProAir. fluticasone-salmeterol (ADVAIR DISKUS) 250-50 mcg/dose inhaler Inhale 1 Puff as instructed twice daily. Rinse and gargle mouth after use with water. pantoprazole DR (PROTONIX) 40 mg tablet Take 1 tablet by mouth once daily. DUPIXENT SYRINGE 300 mg/2 mL injection apremilast (OTEZLA) 30 mg tablet Take 1 tablet by mouth once daily. Per derm BIOTIN ORAL Take by mouth as directed. (Patient not taking: Reported on 09/01/2021 ) amitriptyline (ELAVIL) 10 mg tablet Take 1 tablet by mouth daily at bedtime. atorvastatin (LIPITOR) 10 mg tablet Take 1 tablet by mouth daily at bedtime. For cholesterol. tamsulosin (FLOMAX) 0.4 mg Take 1 capsule by mouth daily at bedtime. (Patient not taking: Reported on 09/01/2021 ) phenazopyridine (PYRIDIUM, GERIDIUM) 200 mg tablet Take 1 tablet by mouth three times daily as needed. (Patient not taking: Reported on 09/01/2021 ) omega 9-kcj-okp-fish oil 250-500-1,000 mg cap Take 1 capsule by mouth once daily. No current facility-administered medications on file prior to visit. Social History Social History Tobacco Use Smoking status: Former Smoker Years: 15.00 Types: Cigarettes Quit date: 07/12/2006 Years since quittin.1 Smokeless tobacco: Never Used Tobacco comment: SOCIAL SMOKER IN PAST Vaping Use Vaping Use: Never used Substance Use Topics Alcohol use: Yes Comment: rare,NOT WHILE Drug use: No Review of Symptoms REVIEW OF SYSTEMS see hpi Patient denies chest pain, shortness of breath. +headaches. EXAM: BP 100/76 (BP Site: Left Arm, BP Position: Sitting, BP Cuff Size: Large Adult) Pulse 72 Temp 36.6 C (97.9 F) Resp 18 Ht 160 cm (5' 2.99) Wt 95.3 kg (210 lb) LMP 01/10/2020 (Approximate) BMI 37.21 kg/m General Appearance: Well appearing, alert, in no acute distress, well-hydrated, well nourished.. Neck: Supple, no adenopathy; thyroid symmetric, normal size, no bruits. Lungs: Lungs clear to auscultation. No wheezing, rhonchi, rales.. Heart: RRR without murmur, gallop, or rubs. No ectopy. Health Maintenance List SPIROMETRY Never done PNEUMOCOCCAL(2 - PCV) due on 09/19/2013 MAMMOGRAM due on 10/07/2019 PAP TESTING due on 04/07/2020 HPV TESTING due on 04/07/2020 COVID-19 VACCINE(5 - Booster for Pfizer series) due on 10/13/2021 ANNUAL PCP TEAM CHRONIC DISEASE VISIT due on 03/03/2022 DTAP,TDAP,TD(2 - Td or Tdap) due on 03/29/2022 DIABETES SCREEN due on 03/03/2024 COLORECTAL CANCER SCREENING due on 02/03/2025 LIPID SCREEN due on 03/03/2026 INFLUENZA Completed HEPATITIS C SCREENING Completed HIV SCREENING Discontinued Data reviewed ASSESSMENT/PLAN: 1. Memory changes - ICD9: 780.93, ICD10: R41.3 (primary diagnosis) Discussed different options. Patient agreeable to evaluation for ADHD/depression/anxiety. May need further workup if worsening. Will also check labs - CONSULT TO [facility] - TSH BLD - CBC + DIFF - VITAMIN B12 BLOOD - COMP METABOLIC PANEL 2. Attention and concentration deficit - ICD9: 799.51, ICD10: R41.840 As above - CONSULT TO [facility] - TSH BLD - CBC + DIFF - VITAMIN B12 BLOOD - COMP METABOLIC PANEL 3. Hyperlipidemia, mixed - ICD9: 272.2, ICD10: E78.2 - to be determined upon return of lab results Restart meds. - LIPID PANEL, NONFASTING - COMP METABOLIC PANEL Abbey Smith PA-C documented in this encounter [facility] 04-19-2007 History of Past i llness Narrative Problem Noted Date Resolved Date ADVANCED MATERNAL AGE:MULTIPARA[659.63] 04/19/19 08 04/19/2007 Elderly primigravida, antepartum 04/19/2007 11/21/2007 documented as of this encounter (statuses as of 09/01/2021) [facility] History of Past illness Narrative* Problem Noted Date Resolved Date ADVANCED MATERNAL AGE:MULTIPARA[659.63] 04/19/19 08 04/19/2007 Elderly primigravida, antepartum 04/19/2007 11/21/2007 documented as of this encounter (statuses as of 09/24/2021) [facility] History of Past illness Narrative* Problem Noted Date Resolved Date ADVANCED MATERNAL AGE:MULTIPARA[659.63] 04/19/19 08 04/19/2007 Elderly primigravida, antepartum 04/19/2007 11/21/2007 documented as of this encounter (statuses as of 10/26/2021) [facility] History of Past illness Narrative* Problem Noted Date Resolved Date ADVANCED MATERNAL AGE:MULTIPARA[659.63] 04/19/19 08 04/19/2007 Elderly primigravida, antepartum 04/19/2007 11/21/2007 documented as of this encounter (statuses as of 10/27/2021) [facility] History of Past illness Narrative* Problem Noted Date Resolved Date ADVANCED MATERNAL AGE:MULTIPARA[659.63] 04/19/19 08 04/19/2007 Elderly primigravida, antepartum 04/19/2007 11/21/2007 documented as of this encounter (statuses as of 10/29/2021) [place] [id number] History of Past illness Narrative* Problem Noted Date Resolved Date ADVANCED MATERNAL AGE:MULTIPARA[659.63] 04/19/19 08 04/19/2007 Elderly primigravida, antepartum 04/19/2007 11/21/2007 documented as of this encounter (statuses as of 10/30/2021) [facility] History of Past illness Narrative* Problem Noted Date Resolved Date ADVANCED MATERNAL AGE:MULTIPARA[659.63] 04/19/19 08 04/19/2007 Elderly primigravida, antepartum 04/19/2007 11/21/2007 documented as of this encounter (statuses as of 10/30/2021) [facility] History of Past illness Narrative* Problem Noted Date Resolved Date ADVANCED MATERNAL AGE:MULTIPARA[659.63] 04/19/19 08 04/19/2007 Elderly primigravida, antepartum 04/19/2007 11/21/2007 documented as of this encounter (statuses as of 12/07/2021) [facility] History of Past illness Narrative* Problem Noted Date Resolved Date ADVANCED MATERNAL AGE:MULTIPARA[659.63] 04/19/19 08 04/19/2007 Elderly primigravida, antepartum 04/19/2007 11/21/2007 documented as of this encounter (statuses as of 04/20/2022) [facility] History of Past illness Narrative* Problem Noted Date Resolved Date ADVANCED MATERNAL AGE:MULTIPARA[659.63] 04/19/19 08 04/19/2007 Elderly primigravida, antepartum 04/19/2007 11/21/2007 documented as of this encounter (statuses as of 05/04/2022) [facility] History of Past illness Narrative* Problem Noted Date Resolved Date ADVANCED MATERNAL AGE:MULTIPARA[659.63] 04/19/19 08 04/19/2007 Elderly primigravida, antepartum 04/19/2007 11/21/2007 documented as of this encounter (statuses as of 05/06/2022) [facility] History of Past illness Narrative* Problem Noted Date Resolved Date ADVANCED MATERNAL AGE:MULTIPARA[659.63] 04/19/19 08 04/19/2007 Elderly primigravida, antepartum 04/19/2007 11/21/2007 documented as of this encounter (statuses as of 05/18/2022) [facility] History of Past illness Narrative* Problem Noted Date Diagnosed Date Resolved Date ADVANCED MATERNAL AGE:MULTIPARA[659.63] 04/19/2007 04/19/2007 Elderly primigravida, antepartum 04/19/2007 11/21/2007 documented as of this encounter (statuses as of 09/27/2022) [facility] History of Past illness Narrative* Problem Noted Date Diagnosed Date Resolved Date ADVANCED MATERNAL AGE:MULTIPARA[659.63] 04/19/2007 04/19/2007 Elderly primigravida, antepartum 04/19/2007 11/21/2007 documented as of this encounter (statuses as of 11/08/2022) [facility] History of Past illness Narrative* Problem Noted Date Diagnosed Date Resolved Date ADVANCED MATERNAL AGE:MULTIPARA[659.63] 04/19/2007 04/19/2007 Elderly primigravida, antepartum 04/19/2007 11/21/2007 documented as of this encounter (statuses as of 01/13/2023) [facility] History of Past illness Narrative* Problem Noted Date Diagnosed Date Resolved Date ADVANCED MATERNAL AGE:MULTIPARA[659.63] 04/19/2007 04/19/2007 Elderly primigravida, antepartum 04/19/2007 11/21/2007 documented as of this encounter (statuses as of 04/18/2023) [facility] History of Past illness Narrative* Problem Noted Date Diagnosed Date Resolved Date ADVANCED MATERNAL AGE:MULTIPARA[659.63] 04/19/2007 04/19/2007 Elderly primigravida, antepartum 04/19/2007 11/21/2007 documented as of this encounter (statuses as of 04/21/2023) [facility] History of Past illness Narrative* Problem Noted Date Diagnosed Date Resolved Date ADVANCED MATERNAL AGE:MULTIPARA[659.63] 04/19/2007 04/19/2007 Elderly primigravida, antepartum 04/19/2007 11/21/2007 documented as of this encounter (statuses as of 05/16/2023) [facility] History of Past illness Narrative* Problem Noted Date Diagnosed Date Resolved Date ADVANCED MATERNAL AGE:MULTIPARA[659.63] 04/19/2007 04/19/2007 Elderly primigravida, antepartum 04/19/2007 11/21/2007 documented as of this encounter (statuses as of 05/31/2023) [address]06-2008 History of Past illness Narrative* Problem Noted Date Diagnosed Date Resolved Date ADVANCED MATERNAL AGE:MULTIPARA[659.63] 04/19/2007 04/19/2007 Elderly primigravida, antepartum 04/19/2007 11/21/2007 documented as of this encounter (statuses as of 06/14/2023) [facility] History of Past illness Narrative* Problem Noted Date Diagnosed Date Resolved Date ADVANCED MATERNAL AGE:MULTIPARA[659.63] 04/19/2007 04/19/2007 Elderly primigravida, antepartum 04/19/2007 11/21/2007 documented as of this encounter (statuses as of 06/15/2023) [facility] History of Past illness Narrative* Problem Noted Date Diagnosed Date Resolved Date ADVANCED MATERNAL AGE:MULTIPARA[659.63] 04/19/2007 04/19/2007 Elderly primigravida, antepartum 04/19/2007 11/21/2007 documented as of this encounter (statuses as of 06/17/2023) [facility] History of Past illness Narrative* Problem Noted Date Diagnosed Date Resolved Date ADVANCED MATERNAL AGE:MULTIPARA[659.63] 04/19/2007 04/19/2007 Elderly primigravida, antepartum 04/19/2007 11/21/2007 documented as of this encounter (statuses as of 07/01/2023) [facility] Memory changes- Primary Memory loss Attention and concentration deficit Attention or concentration deficit Hyperlipidemia, mixed Mixed hyperlipidemia [facility] Diagnosis Well adult exam- Primary Routine general medical examination at a health care facility Hyperlipidemia, mixed Mixed hyperlipidemia LITO (obstructive sleep apnea) Obstructive sleep apnea (adult) (pediatric) GERD without esophagitis Esophageal reflux Abnormal urine odor Other nonspecific finding on examination of urine Lower abdominal pain Abdominal pain, other specified site Dyspareunia in female Chronic tension-type headache, intractable Chronic tension type headache Depression, unspecified depression type Anxiety Anxiety state, unspecified Obesity (BMI 35.0-39.9 without comorbidity) Obesity, unspecified documented in this encounter [facility] note* Diagnosis Lower abdominal pain- Primary Abdominal pain, other specified site Leukocytosis, unspecified type Hypokalemia Hypopotassemia documented in this encounter [facility] note* Diagnosis Lower abdominal pain Abdominal pain, other specified site Dyspareunia in female documented in this encounter [facility] note* Diagnosis Encounter for screening mammogram for breast cancer documented in this encounter [facility] note* Diagnosis Onset Date Resolution Status Climacteric acute Endocervical polyp acute Hyperlipidemia acute Endocervical polyp acute [facility] Work Phone: evaluation note* Diagnosis Onset Date Resolution Status Climacteric acute Hyperlipidemia acute Postoperative examination no neactive [facility] Work Phone: evaluation note* Diagnosis Elevated antinuclear antibody (ISABELLE) level- Primary Other and unspecified nonspecific immunological findings documented in this encounter [facility] note* Diagnosis Onset Date Resolution Status BMI greater than 40 acute Other obesity acute BMI greater than 40 acute Climacteric acute Dysmenorrhea acute Hyperlipidemia acute Immunosuppressed status acut e Other obesity acute Encounter for routine gynecological examination noneactive [facility] Work Phone: Evaluation note* Diagnosis Onset Date Resolution Status BMI greater than 40 acute Other obesity acute BMI greater than 40 acute Climacteric acute Dysmenorrhea acute Hyperlipidemia acute Immunosuppressed status acut e Other obesity acute Encounter for routine gynecological examination noneactive BMI greater than 40 acute Climacteric acute Dysmenorrhea acute Other obesity acute Vaginal odor acute [facility] Work Phone: Evaluation note* Diagnosis Onset Date Resolution Status BMI greater than 40 acute Climacteric acute Dysmenorrhea acute Other obesity acute Vaginal odor acute [facility] Work Phone: Evaluation note* Diagnosis Traveler's diarrhea- Primary Infectious diarrhea documented in this encounter [facility] note* Diagnosis Encounter for screening mammogram for breast cancer documented in this encounter [facility] noteNo assessment information [facility]WC[facility]: [facility]* Diagnosis Hemorrhoids, unspecified hemorrhoid type- Primary Hyperlipidemia, mixed Mixed hyperlipidemia GERD without esophagitis Esophageal reflux Moderate persistent asthma without complication Unspecified asthma LITO (obstructive sleep apnea) Obstructive sleep apnea (adult) (pediatric) Weight gain Abnormal weight gain Class 3 severe obesity with body mass index (BMI) of 40.0 to 44.9 in adult, unspecified obesity type, unspecified whether serious comorbidity present (HCC) documented in this encounter [facility] note* Diagnosis LITO (obstructive sleep apnea)- Primary Obstructive sleep apnea (adult) (pediatric) Vitamin D deficiency Unspecified vitamin D deficiency Gastroesophageal reflux disease without esophagitis Esophageal reflux Hypercholesteremia Pure hypercholesterolemia Weight gain Abnormal weight gain Class 2 severe obesity with serious comorbidity and body mass index (BMI) of 35.0 to 35.9 in adult, unspecified obesity type (HCC) Screening for diabetes mellitus Screening for metabolic disorder documented in this encounter [facility] note* Diagnosis SOB (shortness of breath)- Primary Shortness of breath Peripheral edema Edema documented in this encounter [facility] note* Diagnosis Hyperinsulinemia- Primary Other specified hypoglycemia LITO (obstructive sleep apnea) Obstructive sleep apnea (adult) (pediatric) Vitamin D deficiency Unspecified vitamin D deficiency Gastroesophageal reflux disease without esophagitis Esophageal reflux Hypercholesteremia Pure hypercholesterolemia Weight gain Abnormal weight gain Class 2 severe obesity with serious comorbidity and body mass index (BMI) of 35.0 to 35.9 in adult, unspecified obesity type (HCC) documented in this encounter [facility] note* Diagnosis Hyperinsulinemia- Primary Other specified hypoglycemia Insulin resistance Dysmetabolic Syndrome X LITO (obstructive sleep apnea) Obstructive sleep apnea (adult) (pediatric) Vitamin D deficiency Unspecified vitamin D deficiency Gastroesophageal reflux disease without esophagitis Esophageal reflux Hypercholesteremia Pure hypercholesterolemia Class 2 severe obesity with serious comorbidity and body mass index (BMI) of 35.0 to 35.9 in adult, unspecified obesity type (HCC) documented in this encounter [facility] note* Diagnosis Obstructive sleep apnea- Primary Obstructive sleep apnea (adult) (pediatric) Intolerance of continuous positive airway pressure (CPAP) ventilation documented in this encounter [facility] note* Diagnosis Hemorrhoids, unspecified hemorrhoid type- Primary documented in this encounter [facility] note* Diagnosis Hyperinsulinemia- Primary Other specified hypoglycemia Insulin resistance Dysmetabolic Syndrome X LITO (obstructive sleep apnea) Obstructive sleep apnea (adult) (pediatric) Vitamin D deficiency Unspecified vitamin D deficiency Gastroesophageal reflux disease without esophagitis Esophageal reflux Hypercholesteremia Pure hypercholesterolemia Class 2 severe obesity with serious comorbidity and body mass index (BMI) of 35.0 to 35.9 in adult, unspecified obesity type (HCC) Drug-induced nausea and vomiting Nausea with vomiting [facility] Diagnosis Hemorrhoids, unspecified hemorrhoid type [facility] Diagnosis Class 2 severe obesity with serious comorbidity and body mass index (BMI) of 35.0 to 35.9 in adult, unspecified obesity type (HCC) [facility] Diagnosis SOB (shortness of breath) Shortness of breath [facility] Diagnosis Hemorrhoids, unspecified hemorrhoid type- Primary [facility] Diagnosis Hemorrhoids, unspecified hemorrhoid type- Primary [facility] Diagnosis Hyperinsulinemia- Primary Other specified hypoglycemia Insulin resistance Dysmetabolic Syndrome X LITO (obstructive sleep apnea) Obstructive sleep apnea (adult) (pediatric) Vitamin D deficiency Unspecified vitamin D deficiency Gastroesophageal reflux disease without esophagitis Esophageal reflux Hypercholesteremia Pure hypercholesterolemia Class 2 severe obesity with serious comorbidity and body mass index (BMI) of 35.0 to 35.9 in adult, unspecified obesity type (HCC) [facility] Diagnosis Well adult exam- Primary Routine general medical examination at a health care facility Hyperlipidemia, mixed Mixed hyperlipidemia GERD without esophagitis Esophageal reflux Moderate persistent asthma without complication Unspecified asthma Chronic tension-type headache, intractable Chronic tension type headache Depression, unspecified depression type Anxiety Anxiety state, unspecified Obesity (BMI 35.0-39.9 without comorbidity) Obesity, unspecified LITO (obstructive sleep apnea) Obstructive sleep apnea (adult) (pediatric) Encounter for screening mammogram for breast cancer Encounter for screening for diabetes mellitus Screening for diabetes mellitus Encounter for immunization Need for other specified prophylactic vaccination against single bacterial disease [facility] Diagnosis Encounter for screening mammogram for breast cancer [facility] Diagnosis Grade II hemorrhoids- Primary Unspecified hemorrhoids with other complication Grade II hemorrhoids Unspecified hemorrhoids with other complication documented in this encounter [facility] note* Diagnosis Class 2 severe obesity with serious comorbidity and body mass index (BMI) of 35.0 to 35.9 in adult, unspecified obesity type (HCC) Grade II hemorrhoids Unspecified hemorrhoids with other complication documented in this encounter [facility] note* Diagnosis LITO (obstructive sleep apnea)- Primary Obstructive sleep apnea (adult) (pediatric) Class 2 severe obesity with serious comorbidity and body mass index (BMI) of 35.0 to 35.9 in adult, unspecified obesity type (HCC) documented in this encounter [facility] note* Diagnosis Hyperinsulinemia- Primary Other specified hypoglycemia Insulin resistance Dysmetabolic Syndrome X LITO (obstructive sleep apnea) Obstructive sleep apnea (adult) (pediatric) Vitamin D deficiency Unspecified vitamin D deficiency Gastroesophageal reflux disease without esophagitis Esophageal reflux Hypercholesteremia Pure hypercholesterolemia Class 2 severe obesity with serious comorbidity and body mass index (BMI) of 35.0 to 35.9 in adult, unspecified obesity type (HCC) documented in this encounter [facility] note* Diagnosis Rectal itching- Primary Pruritus ani Fistula Unspecified local infection of skin and subcutaneous tissue documented in this encounter [facility] note* Diagnosis Grade II hemorrhoids- Primary Unspecified hemorrhoids with other complication Hemorrhoids, unspecified hemorrhoid type documented in this encounter [facility] note* Diagnosis Anorectal fistula- Primary Anal fistula Anorectal fistula Anal fistula documented in this encounter [facility] note* Diagnosis Anorectal fistula- Primary Anal fistula Family history of colon cancer Family history of malignant neoplasm of gastrointestinal tract Anorectal fistula Anal fistula documented in this encounter [facility] note* Diagnosis Pre-op exam- Primary Preoperative examination, unspecified Anorectal fistula Anal fistula Anal fistula Encounter for screening colonoscopy Special screening for malignant neoplasms, colon Anorectal fistula Anal fistula documented in this encounter [facility] note* Diagnosis LITO (obstructive sleep apnea)- Primary Obstructive sleep apnea (adult) (pediatric) Hyperinsulinemia Other specified hypoglycemia Insulin resistance Dysmetabolic Syndrome X Vitamin D deficiency Unspecified vitamin D deficiency Gastroesophageal reflux disease without esophagitis Esophageal reflux Hypercholesteremia Pure hypercholesterolemia Class 2 severe obesity with serious comorbidity and body mass index (BMI) of 35.0 to 35.9 in adult, unspecified obesity type (HCC) Diarrhea, unspecified type [facility] Diagnosis Immunity status testing- Primary Antibody response examination Encounter for immunization Need for other specified prophylactic vaccination against single bacterial disease Motion sickness, initial encounter [facility] this [facility] Diagnosis Need for vaccination- Primary Need for prophylactic vaccination and inoculation against unspecified single disease [facility] this [facility]* Diagnosis Encounter for immunization- Primary Need for other specified prophylactic vaccination against single bacterial disease [facility] Additional Instructions Implant Used?: [facility] Work Phone: [facility] for referral (narrative)* Diagnostic Procedure Only (Routine) - Authorized Specialty Diagnoses / Procedures Referred By Contac t Referred To Contact US IMAGING Diagnoses Lower abdominal pain Dyspareunia in female Procedures US FEMALE PELVIS TRANSVAG US TRANSVAGINAL Abbey Smith PA-C [address] [place] [address] Us Imaging Referral ID Status Reason Start Date Expiration Date Visits Requested Visits Authorized [id number] Authorized Auto-Generat ed Referral 10/26/2021 11/25/2022 1 1 * Diagnostic Procedure Only (Routine) - Authorized Specialty Diagnoses / Procedures Referred By Contac t Referred To Contact US IMAGING Diagnoses Lower abdominal pain Dyspareunia in female Procedures US FEMALE PELVIS TRANSABD COMPLETE US PELVIC NONOBSTETRIC REAL-TIME IMAGE COMPLETE Abbey Smith PA-C [address] [place] [address] Us Imaging Referral ID Status Reason Start Date Expiration Date Visits Requested Visits Authorized [id number] Authorized Auto-Generat ed Referral 10/26/2021 11/25/2022 1 1 [facility] for referral (narrative)* Diagnostic Procedure Only (Routine) - Closed Specialty Diagnoses / Procedures Referred By Contac t Referred To Contact US IMAGING Diagnoses Lower abdominal pain Dyspareunia in female Procedures US FEMALE PELVIS TRANSVAG US TRANSVAGINAL Abbey Smith PA-C [address] [place] [address] Us Imaging Referral ID Status Reason Start Date Expiration Date V isits Requested Visits Authorized [id number] Closed Auto-Generate d Referral 10/26/2021 11/25/2022 1 1 [facility] for referral (narrative)* Diagnostic Procedure Only (Routine) - Pending Review Specialty Diagnoses / Procedures Referred By Contac t Referred To Contact BR IMAGING Diagnoses Encounter for screening mammogram for breast cancer Procedures ROM SCREENING SCREENING MAMMOGRAPHY BI 2-VIEW BREAST INC CAD Clark Javed MD [address] [place] [address] Br Imaging [address] [place] [address] Referral ID Status Reason Start Date Expiration Date Visits Requested Visits Authorized [id number] Pending Review Auto-Generat ed Referral 12/02/2021 01/01/2023 1 1 [facility] for referral (narrative)* Diagnostic Procedure Only (Routine) - Pending Review Specialty Diagnoses / Procedures Referred By Contac t Referred To Contact BR IMAGING Diagnoses Encounter for screening mammogram for breast cancer Procedures ROM SCREENING SCREENING MAMMOGRAPHY BI 2-VIEW BREAST INC CAD Clark Javed MD [address] [place] [address] [facility] Imaging [address] [place] [address] Referral ID Status Reason Start Date Expiration Date Visits Requested Visits Authorized [id number] Pending Review Auto-Generat ed Referral 11/03/2022 12/03/2023 1 1 T [facility] for referral (narrative)* Outpatient Procedure (Urgent) - Authorized Specialty Diagnoses / Procedures Referred By Marito t Referred To [facility] Diagnoses SOB (shortness of breath) Peripheral edema Procedures ECHO ECHO TTHRC R-T 2D W/WOM-MODE COMPL SPEC&COLR D Latrice Etienne APRN.[employer] [address] [place] [address] [address] Referral ID Status Reason Start Date Expiration Date Visits Requested Visits Authorized [id number] Authorized Auto-Generat ed Referral 06/14/2023 06/13/2024 1 1 * Outpatient Procedure (Routine) - Pending Review Specialty Diagnoses / Procedures Referred By Contac t Referred To Contact [facility] Diagnoses SOB (shortness of breath) Procedures ECG COMPLETE ECG ROUTINE ECG W/LEAST 12 LDS W/I&R Latrice Etienne APRN.CNP [address] [place] [address] [address] Referral ID Status Reason Start Date Expiration Date Visits Requested Visits Authorized [id number] Pending Review Auto-Generat ed Referral 06/14/2023 06/13/2024 1 1 [facility] for referral (narrative)* Diagnostic Procedure Only (Routine) - Authorized Specialty Diagnoses / Procedures Referred By Marito t Referred To Contact BR IMAGING Diagnoses Encounter for screening mammogram for breast cancer Procedures ROM SCREENING SCREENING MAMMOGRAPHY BI 2-VIEW BREAST INC CAD Clark Javed MD [address] [place] [address] Br Imaging [address] [place] [id number] Referral ID Status Reason Start Date Expiration Date Visits Requested Visits Authorized [id number] Authorized Auto-Generat ed Referral 02/01/2025 1 1 [facility] for visit Narrative* Diagnostic Procedure Only (Routine) - Closed Specialty Diagnoses / Procedures Referred By Contac t Referred To Contact BR IMAGING Diagnoses Encounter for screening mammogram for breast cancer Procedures ROM SCREENING SCREENING MAMMOGRAPHY BI 2-VIEW BREAST INC CAD Clark Javed MD [address] [place] [address] [facility] Imaging [address] [place] [address] Referral ID Status Reason Start Date Expiration Date V isits Requested Visits Authorized [id number] Closed Auto-Generate d Referral 01/03/2024 02/01/2025 1 1 [facility] Advance Directives No Advanced Directives Records FoundDocuments on File Type Date Recorded 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 Advance Directive(s) 02/04/2020 11:11 AM Advance Directive(s) 01/23/2020 12:03 PM Advance Directive(s) 06/12/2018 10:44 AM Advance Directive(s) 05/16/2017 2:40 PM Documents on File Type Date Recorded 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 Advance Directive(s) 06/12/2018 10:44 AM Documents on File Type Date Recorded 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 Advance Directive(s) 06/12/2018 10:44 AM Advance Directive Response Recorded Date/ Time Name of Medical Power of Supervisor Of Communications December 23, 2021 9:04am Living Will Yes December 23 9:04am Power of Supervisor Of Communications Yes December 23, 2021 9:04am Advance Directive Response Recorded Date/ Time Name of Medical Power of Supervisor Of Communications December 23, 2021 8:04am Living Will Yes December 23 8:04am Power of Supervisor Of Communications Yes December 23, 2021 8:04am Advance Directive Response Recorded Date/ Time Living Will Yes December 23 8:04am Power of Supervisor Of Communications Yes December 23, 2021 8:04am Advance Directive Response Recorded Date/ Time Living Will Yes December 23 9:04am Power of Supervisor Of Communications Yes December 23, 2021 9:04am Chief Complaint and Reason for Visit Chief Complaint u/s cyst and polyp o n left ovary hyster d&c hyster d&c Reason for Visit Climacteric Endocervical polyp Hyperlipidemia Endocervical polyp Chief Complaint u/s cyst and polyp o n left ovary hyster d&c hyster d&c 2 wk D&C SKIN Reason for Visit Climacteric Hyperlipidemia Postoperative examination Chief Complaint SKIN WT/BP check 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) Reason for Visit BMI greater than 40 Other obesity BMI greater than 40 Climacteric Dysmenorrhea Hyperlipidemia Immunosuppressed status Other obesity Encounter for routine gynecological examination Chief Complaint WT/BP check 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 Reason for Visit BMI greater than 40 Other obesity BMI greater than 40 Climacteric Dysmenorrhea Hyperlipidemia Immunosuppressed status Other obesity Encounter for routine gynecological examination Chief Complaint 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 OBESITY Reason for Visit BMI greater than 40 Other obesity BMI greater than 40 Climacteric Dysmenorrhea Hyperlipidemia Immunosuppressed status Other obesity Encounter for routine gynecological examination Chief Complaint 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 OBESITY 3 mo f/u climateric Reason for Visit BMI greater than 40 Other obesity BMI greater than 40 Climacteric Dysmenorrhea Hyperlipidemia Immunosuppressed status Other obesity Encounter for routine gynecological examination BMI greater than 40 Climacteric Dysmenorrhea Other obesity Vaginal odor Chief Complaint OBESITY OBESITY 3 mo f/u climateric OBESITY Reason for Visit BMI greater than 40 Climacteric Dysmenorrhea Other obesity Vaginal odor Chief Complaint SCREENING Family History No Family History Records Found Relationship Condition Age at Onset Recorded Date/T gerardo father Malignant neoplasm of colon Unknown grandfather Malignant neoplasm of colon Unknown brother Malignant neoplasm of colon Unknown mother Malignant neoplasm of breast 71 uncle Malignant neoplasm of colon Unknown Reason for Referral Specialty Diagnoses / Procedures Referred By Marito pennington Referred To Contact Diagnoses Weight gain Class 3 severe obesity with body mass index (BMI) of 40.0 to 44.9 in adult, unspecified obesity type, unspecified whether serious comorbidity present (HCC) Procedures CONSULT TO [facility] WEIGHT MANAGEMENT PROGRAM OFFICE/OUTPATIENT [facility] 60 MINUTES Latrice Etienne, MIRACLE.[employer] [address] [place], [place] [id number] Referral ID Status Reason Start Date Expiration Date Visits Requested Visits Authorized [id number] Authorized PCP Requested Referral Auto-Generate d Referral 04/18/2023 04/17/2024 1 1 Specialty Diagnoses / Procedures Referred By Marito pennington Referred To Contact Endocrinology Diagnoses Weight gain Procedures CONSULT TO ENDOCRINOLOGY OFFICE/OUTPATIENT [facility] 60 MINUTES Latrice Etienne, 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.[employer] [address] [place] [address] Referral ID Status Reason Start Date Expiration Date Visits Requested Visits Authorized [id number] Authorized PCP Requested Referral 04/18/2023 04/17/2024 1 1 Specialty Diagnoses / Procedures Referred By Contac t Referred To Contact Diagnoses LITO (obstructive sleep apnea) Class 2 severe obesity with serious comorbidity and body mass index (BMI) of 35.0 to 35.9 in adult, unspecified obesity type (HCC) Procedures CONSULT TO SLEEP MEDICINE - ADULT Kailyn Gill MD [address] [place] [address] [facility] [address] [place] [address] Referral ID Status Reason Start Date Expiration Date Visits Requested Visits Authorized [id number] Ref Not Required PCP Requested Referral 05/30/2023 05/29/2024 1 1 Specialty Diagnoses / Procedures Referred By Contac t Referred To Contact General Surgery Diagnoses Hemorrhoids, unspecified hemorrhoid type Procedures CONSULT TO GENERAL SURGERY OFFICE/OUTPATIENT [facility] 60 MINUTES Latrice Etienne APRN.[facility] [address] [place] [address] Referral ID Status Reason Start Date Expiration Date Visits Requested Visits Authorized [id number] Authorized PCP Requested Referral 09/29/2023 09/28/2024 1 1 Summary Purpose Additional Source Comments Source Comments (unrecognize d section and content) In the event this informatio n is protected by the Federal Confidentiality of Alcohol and Drug Abuse Patient Records regulations: The Federal rules restrict any use of the information to criminally investigate or prosecute any alcohol or drug abuse patient.[facility] [facility] event this information is protected by the Federal Confidentiality of Alcohol and Drug Abuse Patient Records regulations: The Federal rules restrict any use of the information to criminally investigate or prosecute any alcohol or drug abuse patient.[facility] [facility] the event this information is protected by the Federal Confidentiality of Alcohol and Drug Abuse Patient Records regulations: The Federal rules restrict any use of the information to criminally investigate or prosecute any alcohol or drug abuse patient.[facility] [facility] the event this information is protected by the Federal Confidentiality of Alcohol and Drug Abuse Patient Records regulations: The Federal rules restrict any use of the information to criminally investigate or prosecute any alcohol or drug abuse patient.[facility] [facility] the event this information is protected by the Federal Confidentiality of Alcohol and Drug Abuse Patient Records regulations: The Federal rules restrict any use of the information to criminally investigate or prosecute any alcohol or drug abuse patient.[facility] [facility] the event this information is protected by the Federal Confidentiality of Alcohol and Drug Abuse Patient Records regulations: The Federal rules restrict any use of the information to criminally investigate or prosecute any alcohol or drug abuse patient.[facility] [facility] the event this information is protected by the Federal Confidentiality of Alcohol and Drug Abuse Patient Records regulations: The Federal rules restrict any use of the information to criminally investigate or prosecute any alcohol or drug abuse patient.[facility] [facility] the event this information is protected by the Federal Confidentiality of Alcohol and Drug Abuse Patient Records regulations: The Federal rules restrict any use of the information to criminally investigate or prosecute any alcohol or drug abuse patient.[facility] [facility] the event this information is protected by the Federal Confidentiality of Alcohol and Drug Abuse Patient Records regulations: The Federal rules restrict any use of the information to criminally investigate or prosecute any alcohol or drug abuse patient.[facility] [facility] the event this information is protected by the Federal Confidentiality of Alcohol and Drug Abuse Patient Records regulations: The Federal rules restrict any use of the information to criminally investigate or prosecute any alcohol or drug abuse patient.[facility] [facility] the event this information is protected by the Federal Confidentiality of Alcohol and Drug Abuse Patient Records regulations: The Federal rules restrict any use of the information to criminally investigate or prosecute any alcohol or drug abuse patient.[facility] [facility] the event this information is protected by the Federal Confidentiality of Alcohol and Drug Abuse Patient Records regulations: The Federal rules restrict any use of the information to criminally investigate or prosecute any alcohol or drug abuse patient.[facility] [facility] the event this information is protected by the Federal Confidentiality of Alcohol and Drug Abuse Patient Records regulations: The Federal rules restrict any use of the information to criminally investigate or prosecute any alcohol or drug abuse patient.[facility] [facility] the event this information is protected by the Federal Confidentiality of Alcohol and Drug Abuse Patient Records regulations: The Federal rules restrict any use of the information to criminally investigate or prosecute any alcohol or drug abuse patient.[facility] [facility] the event this information is protected by the Federal Confidentiality of Alcohol and Drug Abuse Patient Records regulations: The Federal rules restrict any use of the information to criminally investigate or prosecute any alcohol or drug abuse patient.[facility] [facility] the event this information is protected by the Federal Confidentiality of Alcohol and Drug Abuse Patient Records regulations: The Federal rules restrict any use of the information to criminally investigate or prosecute any alcohol or drug abuse patient.[facility] [facility] the event this information is protected by the Federal Confidentiality of Alcohol and Drug Abuse Patient Records regulations: The Federal rules restrict any use of the information to criminally investigate or prosecute any alcohol or drug abuse patient.[facility] [facility] the event this information is protected by the Federal Confidentiality of Alcohol and Drug Abuse Patient Records regulations: The Federal rules restrict any use of the information to criminally investigate or prosecute any alcohol or drug abuse patient.[facility] [facility] the event this information is protected by the Federal Confidentiality of Alcohol and Drug Abuse Patient Records regulations: The Federal rules restrict any use of the information to criminally investigate or prosecute any alcohol or drug abuse patient.[facility] [facility] the event this information is protected by the Federal Confidentiality of Alcohol and Drug Abuse Patient Records regulations: The Federal rules restrict any use of the information to criminally investigate or prosecute any alcohol or drug abuse patient.[facility] HospitalIn the event this information is protected by the Federal Confidentiality of Alcohol and Drug Abuse Patient Records regulations: The Federal rules restrict any use of the information to criminally investigate or prosecute any alcohol or drug abuse patient.[facility] HospitalIn the event this information is protected by the Federal Confidentiality of Alcohol and Drug Abuse Patient Records regulations: The Federal rules restrict any use of the information to criminally investigate or prosecute any alcohol or drug abuse patient.[facility] HospitalIn the event this information is protected by the Federal Confidentiality of Alcohol and Drug Abuse Patient Records regulations: The Federal rules restrict any use of the information to criminally investigate or prosecute any alcohol or drug abuse patient.[facility] HospitalIn the event this information is protected by the Federal Confidentiality of Alcohol and Drug Abuse Patient Records regulations: The Federal rules restrict any use of the information to criminally investigate or prosecute any alcohol or drug abuse patient.[facility] HospitalIn the event this information is protected by the Federal Confidentiality of Alcohol and Drug Abuse Patient Records regulations: The Federal rules restrict any use of the information to criminally investigate or prosecute any alcohol or drug abuse patient.[facility] HospitalIn the event this information is protected by the Federal Confidentiality of Alcohol and Drug Abuse Patient Records regulations: The Federal rules restrict any use of the information to criminally investigate or prosecute any alcohol or drug abuse patient.[facility] HospitalIn the event this information is protected by the Federal Confidentiality of Alcohol and Drug Abuse Patient Records regulations: The Federal rules restrict any use of the information to criminally investigate or prosecute any alcohol or drug abuse patient.[facility] HospitalIn the event this information is protected by the Federal Confidentiality of Alcohol and Drug Abuse Patient Records regulations: The Federal rules restrict any use of the information to criminally investigate or prosecute any alcohol or drug abuse patient.[facility] HospitalIn the event this information is protected by the Federal Confidentiality of Alcohol and Drug Abuse Patient Records regulations: The Federal rules restrict any use of the information to criminally investigate or prosecute any alcohol or drug abuse patient.[facility] HospitalIn the event this information is protected by the Federal Confidentiality of Alcohol and Drug Abuse Patient Records regulations: The Federal rules restrict any use of the information to criminally investigate or prosecute any alcohol or drug abuse patient.[facility] HospitalIn the event this information is protected by the Federal Confidentiality of Alcohol and Drug Abuse Patient Records regulations: The Federal rules restrict any use of the information to criminally investigate or prosecute any alcohol or drug abuse patient.[facility] HospitalIn the event this information is protected by the Federal Confidentiality of Alcohol and Drug Abuse Patient Records regulations: The Federal rules restrict any use of the information to criminally investigate or prosecute any alcohol or drug abuse patient.[facility] HospitalIn the event this information is protected by the Federal Confidentiality of Alcohol and Drug Abuse Patient Records regulations: The Federal rules restrict any use of the information to criminally investigate or prosecute any alcohol or drug abuse patient.[facility] HospitalIn the event this information is protected by the Federal Confidentiality of Alcohol and Drug Abuse Patient Records regulations: The Federal rules restrict any use of the information to criminally investigate or prosecute any alcohol or drug abuse patient.[facility] HospitalIn the event this information is protected by the Federal Confidentiality of Alcohol and Drug Abuse Patient Records regulations: The Federal rules restrict any use of the information to criminally investigate or prosecute any alcohol or drug abuse patient.[facility] HospitalIn the event this information is protected by the Federal Confidentiality of Alcohol and Drug Abuse Patient Records regulations: The Federal rules restrict any use of the information to criminally investigate or prosecute any alcohol or drug abuse patient.[facility] HospitalIn the event this information is protected by the Federal Confidentiality of Alcohol and Drug Abuse Patient Records regulations: The Federal rules restrict any use of the information to criminally investigate or prosecute any alcohol or drug abuse patient.[facility] HospitalIn the event this information is protected by the Federal Confidentiality of Alcohol and Drug Abuse Patient Records regulations: The Federal rules restrict any use of the information to criminally investigate or prosecute any alcohol or drug abuse patient.[facility] HospitalIn the event this information is protected by the Federal Confidentiality of Alcohol and Drug Abuse Patient Records regulations: The Federal rules restrict any use of the information to criminally investigate or prosecute any alcohol or drug abuse patient.[facility] HospitalIn the event this information is protected by the Federal Confidentiality of Alcohol and Drug Abuse Patient Records regulations: The Federal rules restrict any use of the information to criminally investigate or prosecute any alcohol or drug abuse patient.[facility] HospitalIn the event this information is protected by the Federal Confidentiality of Alcohol and Drug Abuse Patient Records regulations: The Federal rules restrict any use of the information to criminally investigate or prosecute any alcohol or drug abuse patient.[facility] HospitalIn the event this information is protected by the Federal Confidentiality of Alcohol and Drug Abuse Patient Records regulations: The Federal rules restrict any use of the information to criminally investigate or prosecute any alcohol or drug abuse patient.[facility] HospitalIn the event this information is protected by the Federal Confidentiality of Alcohol and Drug Abuse Patient Records regulations: The Federal rules restrict any use of the information to criminally investigate or prosecute any alcohol or drug abuse patient.[facility] HospitalIn the event this information is protected by the Federal Confidentiality of Alcohol and Drug Abuse Patient Records regulations: The Federal rules restrict any use of the information to criminally investigate or prosecute any alcohol or drug abuse patient.[facility] HospitalIn the event this information is protected by the Federal Confidentiality of Alcohol and Drug Abuse Patient Records regulations: The Federal rules restrict any use of the information to criminally investigate or prosecute any alcohol or drug abuse patient.[facility] HospitalIn the event this information is protected by the Federal Confidentiality of Alcohol and Drug Abuse Patient Records regulations: The Federal rules restrict any use of the information to criminally investigate or prosecute any alcohol or drug abuse patient.[facility] HospitalIn the event this information is protected by the Federal Confidentiality of Alcohol and Drug Abuse Patient Records regulations: The Federal rules restrict any use of the information to criminally investigate or prosecute any alcohol or drug abuse patient.[facility] [facility] HospitalIn the event this information is protected by the Federal Confidentiality of Alcohol and Drug Abuse Patient Records regulations: The Federal rules restrict any use of the information to criminally investigate or prosecute any alcohol or drug abuse patient.[facility] [facility] HospitalIn the event this information is protected by the Federal Confidentiality of Alcohol and Drug Abuse Patient Records regulations: The Federal rules restrict any use of the information to criminally investigate or prosecute any alcohol or drug abuse patient.[facility] [facility] HospitalIn the event this information is protected by the Federal Confidentiality of Alcohol and Drug Abuse Patient Records regulations: The Federal rules restrict any use of the information to criminally investigate or prosecute any alcohol or drug abuse patient.[facility] [facility] HospitalIn the event this information is protected by the Federal Confidentiality of Alcohol and Drug Abuse Patient Records regulations: The Federal rules restrict any use of the information to criminally investigate or prosecute any alcohol or drug abuse patient.[facility] [facility] HospitalIn the event this information is protected by the Federal Confidentiality of Alcohol and Drug Abuse Patient Records regulations: The Federal rules restrict any use of the information to criminally investigate or prosecute any alcohol or drug abuse patient.[facility] [facility] HospitalIn the event this information is protected by the Federal Confidentiality of Alcohol and Drug Abuse Patient Records regulations: The Federal rules restrict any use of the information to criminally investigate or prosecute any alcohol or drug abuse patient.[facility] [facility] HospitalIn the event this information is protected by the Federal Confidentiality of Alcohol and Drug Abuse Patient Records regulations: The Federal rules restrict any use of the information to criminally investigate or prosecute any alcohol or drug abuse patient.[facility] HospitalIn the event this information is protected by the Federal Confidentiality of Alcohol and Drug Abuse Patient Records regulations: The Federal rules restrict any use of the information to criminally investigate or prosecute any alcohol or drug abuse patient.[facility] HospitalIn the event this information is protected by the Federal Confidentiality of Alcohol and Drug Abuse Patient Records regulations: The Federal rules restrict any use of the information to criminally investigate or prosecute any alcohol or drug abuse patient.[facility] [facility] HospitalIn the event this information is protected by the Federal Confidentiality of Alcohol and Drug Abuse Patient Records regulations: The Federal rules restrict any use of the information to criminally investigate or prosecute any alcohol or drug abuse patient.[facility] HospitalIn the event this information is protected by the Federal Confidentiality of Alcohol and Drug Abuse Patient Records regulations: The Federal rules restrict any use of the information to criminally investigate or prosecute any alcohol or drug abuse patient.[facility] HospitalIn the event this information is protected by the Federal Confidentiality of Alcohol and Drug Abuse Patient Records regulations: The Federal rules restrict any use of the information to criminally investigate or prosecute any alcohol or drug abuse patient.[facility] HospitalIn the event this information is protected by the Federal Confidentiality of Alcohol and Drug Abuse Patient Records regulations: The Federal rules restrict any use of the information to criminally investigate or prosecute any alcohol or drug abuse patient.[facility] [facility] HospitalIn the event this information is protected by the Federal Confidentiality of Alcohol and Drug Abuse Patient Records regulations: The Federal rules restrict any use of the information to criminally investigate or prosecute any alcohol or drug abuse patient.[facility] [facility] HospitalIn the event this information is protected by the Federal Confidentiality of Alcohol and Drug Abuse Patient Records regulations: The Federal rules restrict any use of the information to criminally investigate or prosecute any alcohol or drug abuse patient.[facility] [facility] HospitalIn the event this information is protected by the Federal Confidentiality of Alcohol and Drug Abuse Patient Records regulations: The Federal rules restrict any use of the information to criminally investigate or prosecute any alcohol or drug abuse patient.[facility] [facility] HospitalIn the event this information is protected by the Federal Confidentiality of Alcohol and Drug Abuse Patient Records regulations: The Federal rules restrict any use of the information to criminally investigate or prosecute any alcohol or drug abuse patient.[facility] [facility] HospitalIn the event this information is protected by the Federal Confidentiality of Alcohol and Drug Abuse Patient Records regulations: The Federal rules restrict any use of the information to criminally investigate or prosecute any alcohol or drug abuse patient.[facility] [facility] HospitalIn the event this information is protected by the Federal Confidentiality of Alcohol and Drug Abuse Patient Records regulations: The Federal rules restrict any use of the information to criminally investigate or prosecute any alcohol or drug abuse patient.[facility] [facility] HospitalIn the event this information is protected by the Federal Confidentiality of Alcohol and Drug Abuse Patient Records regulations: The Federal rules restrict any use of the information to criminally investigate or prosecute any alcohol or drug abuse patient.[facility] [facility] HospitalIn the event this information is protected by the Federal Confidentiality of Alcohol and Drug Abuse Patient Records regulations: The Federal rules restrict any use of the information to criminally investigate or prosecute any alcohol or drug abuse patient.[facility] [facility] HospitalIn the event this information is protected by the Federal Confidentiality of Alcohol and Drug Abuse Patient Records regulations: The Federal rules restrict any use of the information to criminally investigate or prosecute any alcohol or drug abuse patient.[facility] Reason for Visit (unrecogniz ed section and content) Reason Comments Physical Reason Onset Date Comments Refill Request 09/23/2021 Reason Comments Physical Abdominal Pain Lower abdomen X 1 mo nth 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 Reason Comments Radiology US Specialty Diagnoses / Procedures Referred By Marito pennington Referred To Contact US IMAGING Diagnoses Lower abdominal pain Dyspareunia in female Procedures US FEMALE PELVIS TRANSVAG US TRANSVAGINAL Abbey Smith PA-C [address] [place] [address] Us Imaging Referral ID Status Reason Start Date Expiration Date V isits Requested Visits Authorized [id number] Closed Auto-Generate d Referral 10/26/2021 11/25/2022 1 1 Reason Onset Date Comments Refill Request 04/20/2022 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 Labs 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, 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 Exam PAP/HPV Reason Comments Diarrhea abdominal cramping x 5 days Reason Comments Outside mammogram Reason Comments 6 Month Exam Hemorrhoids Reason Onset Date Comments Refill Request 05/13/2023 Reason Onset Date Comments Weight Management 05/30/2023 Specialty Diagnoses / Procedures Referred By Marito pennington Referred To Contact Diagnoses Weight gain Class 3 severe obesity with body mass index (BMI) of 40.0 to 44.9 in adult, unspecified obesity type, unspecified whether serious comorbidity present (HCC) Procedures CONSULT TO [facility] WEIGHT [facility]NAG[facility] PROGRAM OFFICE/OUTPATIENT [facility] 60 MINUTES Latrice Etienne, MIRACLE.REPA[employer] [address] [place] [address] Referral ID Status Reason Start Date Expiration Date V isits Requested Visits Authorized [id number] Closed PCP Requested Referral Auto-Generated Referral 04/18/2023 04/17/2024 1 1 Reason Comments arm numbness Left arm numbness X 1 week Reason Comments Weight Management Reason Onset Date Comments Refill Request 08/12/2023 Reason Comments New Patient Reason Comments Patient Question Reason Comments ER Discharge Summary Reason Comments Hemorrhoids Specialty Diagnoses / Procedures Referred By Marito pennington Referred To Contact General Surgery Diagnoses Hemorrhoids, unspecified hemorrhoid type Procedures CONSULT TO GENERAL SURGERY OFFICE/OUTPATIENT [facility] 60 MINUTES Latrice Etienne, 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.[employer] [address] [place] [address] Referral ID Status Reason Start Date Expiration Date V isits Requested Visits Authorized [id number] Closed PCP Requested Referral 09/29/2023 09/28/2024 1 1 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 X-ray Reason Comments Orders Reason Comments Medication Problem Reason Onset Date Comments Refill Request 11/11/2023 Reason Comments Outside Procedure Lab Reason Comments Follow Up hemorrhoids Reason Comments Procedure Hemorrhoid banding Reason Comments Physical Reason Comments Consult last seen by man 12/28/23 for hemorroid issues Reason Comments Insurance Authorization Reason Onset Date Comments Refill Request 02/24/2024 Reason Comments Follow Up Reason Comments Follow Up Rectal itching and b leeding since procedure in February Reason Comments Patient Education Reason Comments Pain Anorectal fistula Reason Comments Patient Update hemorrhoidectomy Reason Comments Weight Management Reason Comments Imm/Inj Care Teams (unrecognized sec tion and content) Schedule Manager Relationship Specialty Start Date End Date Clark Javed MD [address] [place] [address] PCP - General Family Practice 12/24/16 Schedule Manager Relationship Specialty Start Date End Date Clark Javed MD [address] [facility] [address] PCP - General Family Practice 12/24/16 Schedule Manager Relationship Specialty Start Date End Date Clark Javed MD [facility] [address] PCP - General Family Practice 12/24/16 Schedule Manager Relationship Specialty Start Date End Date Clark Javed MD [address] [place] [address] [place] [address] PCP - General Family Practice 12/24/16 Schedule Manager Relationship Specialty Start Date End Date Clark Javed MD [address] [place] [address] [place] [address] PCP - General Family Practice 12/24/16 Schedule Manager Relationship Specialty Start Date End Date Clark Javed MD [address] [place] [address] [place] [address] PCP - General Family Practice 12/24/16 Schedule Manager Relationship Specialty Start Date End Date Clark Javed MD [address] [place] [address] [place] [address] PCP - General Family Medicine 12/24/16 Schedule Manager Relationship Specialty Start Date End Date Clark Javed MD [facility] [place] [address] PCP - General Family Medicine 12/24/16 Schedule Manager Relationship Specialty Start Date End Date Clark Javed MD [address] [place] [address], [place] [address] PCP - General Family Medicine 12/24/16 Schedule Manager Relationship Specialty Start Date End Date Clark Javed MD [address] [place] [address] PCP - General Family Medicine 12/24/16 Team Status: Active Member Role Status Dates Dr. Clark Javed MD Family Provider Active Dr. Clark Javed MD Primary Care Provider Active Team Status: Inactive Member Role Status Dates Dr. Clark Javed MD Primary Care Provider, Referri ng Provider Active Dr. Keyonna Lainez MD Attending Provider Active Team Status: Inactive Member Role Status Dates Dr. Clark Javed MD Primary Care Provider, Referri ng Provider Active Erin Canales SUPERVISING FLOORPERSON, SUPERVISING FLOORPERSON-C Attending Provider Active Team Status: Inactive Member Role Status Dates Dr. Clark Javed MD Primary Care Provider Active Dr. Memo Wallis MD Attending Provider, Referring P cristel Active Team Status: Inactive Member Role Status Dates Dr. Clark Javed MD Primary Care Provider Active Dr. Keyonna Lainez MD Attending Provider, Referr ing Provider Active Schedule Manager Relationship Specialty Start Date End Date Clark Javed MD [address] [place] [address] PCP - General Family Medicine 12/24/16 Team Status: Inactive Member Role Status Dates Dr. Clark Javed MD Primary Care Provider Active Dr. Keyonna Lainez MD Attending Provider Active Schedule Manager Relationship Specialty Start Date End Date Clark Javed MD [address] [place] [address] PCP - General Family Medicine 12/24/16 Schedule Manager Relationship Specialty Start Date End Date Clark Javed MD [address] [place] [address] PCP - General Family Medicine 12/24/16 Schedule Manager Relationship Specialty Start Date End Date Clark Javed MD [address] [place] [address] PCP - General Family Medicine 12/24/16 Schedule Manager Relationship Specialty Start Date End Date Clark Javed MD [address] [place] [address] PCP - General Family Medicine 12/24/16 Schedule Manager Relationship Specialty Start Date End Date Clark Javed MD [address] [place] [address] PCP - General Family Medicine 12/24/16 Schedule Manager Relationship Specialty Start Date End Date Clark Javed MD [address] [place] [address] PCP - General Family Medicine 12/24/16 Schedule Manager Relationship Specialty Start Date End Date Clark Javed MD [address] [place] [address] PCP - General Family Medicine 12/24/16 Schedule Manager Relationship Specialty Start Date End Date Clark Javed MD [address] [place] [address] PCP - General Family Medicine 12/24/16 Schedule Manager Relationship Specialty Start Date End Date Clark Javed MD [address] [place] [address] PCP - General Family Medicine 12/24/16 Schedule Manager Relationship Specialty Start Date End Date Clark Javed MD [address] [place] [address] PCP - General Family Medicine 12/24/16 Schedule Manager Relationship Specialty Start Date End Date Clark Javed MD [address] [place] [address] PCP - General Family Medicine 12/24/16 Schedule Manager Relationship Specialty Start Date End Date Clark Javed MD [address] [place] [address] PCP - General Family Medicine 12/24/16 Schedule Manager Relationship Specialty Start Date End Date Clark Javed MD [address] [place] [address] PCP - General Family Medicine 12/24/16 Schedule Manager Relationship Specialty Start Date End Date Clark Javed MD [address] [place] [address] PCP - General Family Medicine 12/24/16 Schedule Manager Relationship Specialty Start Date End Date Clark Javed MD [address] [place] [address] PCP - General Family Medicine 12/24/16 Schedule Manager Relationship Specialty Start Date End Date Clark Javed MD [address] [place] [address] PCP - General Family Medicine 12/24/16 Schedule Manager Relationship Specialty Start Date End Date Clark Javed MD [address] [place] [address] PCP - General Family Medicine 12/24/16 Schedule Manager Relationship Specialty Start Date End Date Clark Javed MD [address] [place] [address] PCP - General Family Medicine 12/24/16 Schedule Manager Relationship Specialty Start Date End Date Clark Javed MD [address] [place] [address] PCP - General Family Medicine 12/24/16 Schedule Manager Relationship Specialty Start Date End Date Clark Javed MD [address] [place] [address] PCP - General Family Medicine 12/24/16 Schedule Manager Relationship Specialty Start Date End Date Clark Javed MD [address] [place] [address] PCP - General Family Medicine 12/24/16 Schedule Manager Relationship Specialty Start Date End Date Clark Javed MD [address] [place] [address] PCP - General Family Medicine 12/24/16 Schedule Manager Relationship Specialty Start Date End Date Clark Javed MD [address] [place] [address] PCP - General Family Medicine 12/24/16 Schedule Manager Relationship Specialty Start Date End Date Clark Javed MD [address] [place] [address] PCP - General Family Medicine 12/24/16 Schedule Manager Relationship Specialty Start Date End Date Clark Javed MD [address] [place] [address] PCP - General Family Medicine 12/24/16 Latrice Etienne APRN.CNP [address] [place] [address] [facility] 02/18/24 Abbey Smith PA-C [address] [place] [address] [facility] 02/18/24 Schedule Manager Relationship Specialty Start Date End Date Clark Javed MD [address] [place] [address] PCP - General Family Medicine 12/24/16 Latrice Etienne APRN.REPA[employer]ER [employer]IC[employer] [address] [place] [address] [facility] 02/18/24 Abbey Smith PA-C [address] [place] [address] [facility] 02/18/24 Schedule Manager Relationship Specialty Start Date End Date Clark Javed MD [address] [place] [address] PCP - General Family Medicine 12/24/16 Latrice Etienne, MIRACLE.REPAIRER SHOE STICKS [address] [place] [address] [facility] 02/18/24 Abbey Smith PA-C [address] [place] [address] [facility] 02/18/24 Schedule Manager Relationship Specialty Start Date End Date Clark Javed MD [address] [place] [address] PCP - General Family Medicine 12/24/16 Latrice Etienne, MIRACLE.REPAIRER SHOE STICKS [address] [place] [address] [facility] 02/18/24 Abbey Smith PA-C [address] [facility] [place] [address] [facility] 02/18/24 Schedule Manager Relationship Specialty Start Date End Date Clark Javed MD [address] [facility] [place] [address] PCP - General Family Medicine 12/24/16 Latrice Etienne, MIRACLE.REPAIRER SHOE STICKS [address] [facility] [place] [address] [facility] 02/18/24 Abbey Smith PA-C [address] [facility] [place] [address] [facility] 02/18/24 Schedule Manager Relationship Specialty Start Date End Date Clark Javed MD [address] [facility] [address] PCP - General Family Medicine 12/24/16 Latrice Etienne, MIRACLE.REPAIRER SHOE STICKS [address] [facility] [place] [address] [facility] 02/18/24 Abbey Smith PA-C [address] [facility] [place] [address] [facility] 02/18/24 Schedule Manager Relationship Specialty Start Date End Date Clark Javed MD [address] [facility] [place] [address] PCP - General Family Medicine 12/24/16 Latrice Etienne, 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.REPAIRER SHOE STICKS [address] [place] [address] [facility] 02/18/24 Abbey Smith PA-C [address] [place] [address] [facility] 02/18/24 Schedule Manager Relationship Specialty Start Date End Date Clark Javed MD [address] [place] [address] PCP - General Family Medicine 12/24/16 Latrice Etienne APRN.REPAIRER SHOE STICKS [address] [place] [address] [facility] 02/18/24 Abbey Smith PA-C [address] [place] [address] [facility] 02/18/24 Schedule Manager Relationship Specialty Start Date End Date Clark Javed MD [address] [place] [address] PCP - General Family Medicine 12/24/16 Latrice Etienne APRN.REPAIRER SHOE STICKS [address] [place] [address] [facility] 02/18/24 Abbey Smith PA-C [address] [place] [address] [facility] 02/18/24 Schedule Manager Relationship Specialty Start Date End Date Clark Javed MD [address] [place] [address] PCP - General Family Medicine 12/24/16 Latrice Etienne, MIRACLE.REPAIRER SHOE STICKS [address] [place] [address] [facility] 02/18/24 Abbey Smith PA-C [address] [place] [address] [facility] 02/18/24 Schedule Manager Relationship Specialty Start Date End Date Clark Javed MD [address] [place] [address] PCP - General Family Medicine 06/18/24 Latrice Etienne APRN.REPAIRER SHOE STICKS [address] [place] [address] [facility] 02/18/24 Abbey Smith PA-C [address] [place] [address] [facility] 02/18/24 Schedule Manager Relationship Specialty Start Date End Date Clark Javed MD [address] [place] [address] PCP - General Family Medicine 06/18/24 Latrice Etienne, 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.REPAIRER SHOE STICKS [facility] [place] [address] [facility] 02/18/24 Abbey Smith PA-C [address] [place] [address] [facility] 02/18/24 Schedule Manager Relationship Specialty Start Date End Date Clark Javed MD [address] [place] [address] PCP - General Family Medicine 06/18/24 Latrice Etienne APRN.REPAIRER SHOE STICKS [address] [place] [address] [facility] 02/18/24 Abbey mSith PA-C [address] [place] [address] [facility] 02/18/24 Schedule Manager Relationship Specialty Start Date End Date Clark Javed MD [address] [place] [address] PCP - General Family Medicine 06/18/24 Latrice Etienne APRN.REPAIRER SHOE STICKS [address] [place] [address] [facility] 02/18/24 Abbey Smith PA-C [address] [place] [address] [facility] Schedule Manager Relationship Specialty Start Date End Date Clark Javed MD [address] [place] [address] PCP - General Family Medicine 06/18/24 Latrice Etienne APRN.REPAIRER SHOE STICKS [address] [place] [address] [facility] 02/18/24 07/29/24 Abbey Smith PA-C [address] [place] [address] [facility] 02/18/24 08/12/24 Latrice Etienne APRN.REPAIRER SHOE STICKS [address] [place], [place] [address] [facility] 08/13/24 Abbey Smith PA-C [address] [place], [place] [address] [facility] 08/13/24 Schedule Manager Relationship Specialty Start Date End Date Clark Javed MD [address] [place] [id number] PCP - General [facility] 06/18/24 Latrice Etienne APRN.REPAIRER SHOE STICKS [address] [place] [address] [facility] 08/13/24 Abbey Smith PA-C [address] [place], [place] [id number] [facility] 08/13/24 Goals (unrecognized section and content) Goals may be documented in a n alternate sectionGoals may be documented in an alternate sectionGoals may be documented in an alternate sectionGoals may be documented in an alternate sectionGoals may be documented in an alternate sectionGoals may be documented in an alternate section INFORMATION SOURCE (unrecogn ized section and content) DATE CREATED AUTHOR 01/02/2024 [facility] DATE CREATED AUTHOR AUTHOR'S ORGANIZ ATION 02/05/2024 [facility] DATE CREATED AUTHOR AUTHOR'S ORGANIZ ATION 02/28/2024 [facility] DATE CREATED AUTHOR AUTHOR'S ORGANIZ ATION 10/14/2024 [facility] FOR RECORDS PERTAINING TO PATIENTS WHO ARE OR HAVE BEEN ENROLLED IN A CHEMICAL DEPENDENCY/SUBSTANCEABUSE PROGRAM, SOME INFORMATION MAY BE OMITTED. This clinical summary was aggregated from multiple sources. Caution should be exercised in using it in the provision of clinical care. This summary normalizes information from multiple sources, and as a consequence, information in this document may materially change the coding, format and clinical context of patient data. In addition, data may be omitted in some cases. CLINICAL DECISIONS SHOULD BE BASED ON THE PRIMARY CLINICAL RECORDS. [employer] [facility]. provides no warranty or guarantee of the accuracy or completeness of information in this document.
[2024-10-17 20:35] LABS: Mucous, Urine 0 SEEN /hpf (<or=2+)
[2024-10-17 20:37] LABS: Color, Urine Yellow (Yellow); Glucose, Dipstick Normal (Normal); Ketone-Dipstick Negative (Negative); Leukocyte Esterase-Dipstick 100 /ul (Negative); Nitrite-Dipstick Negative (Negative); Occult Blood-Urine 50 /ul (Negative); Protein-Dipstick 30 mg/dl (Negative); Specific Gravity, Urine 1.010 (1.002-1.030); Urine Bilirubin Dipstick Negative (Negative)
[2024-10-17 20:57] LABS: Hematocrit 37.6 % (37-47); Hemoglobin 13.1 g/dL (12.0-15.0); Immature Granulocytes Count 0.020 X10^3/uL (0.0-0.0); Mean Corp Hgb Conc 34.8 g/dL (32-36); Mean Corpuscular Volume 90.8 fL (81-99); Mean Platelet Vol. 10.2 fl (6.2-12.0); NRBC Flagged by Analyzer 0 % (0-5); Platelet Count 290 K/mm3 (150-450); RBC Distribution Width CV 12.9 % (11.6-14.6); RBC Distribution Width SD 42.9 fl (35.1-43.9); Red Blood Count 4.14 M/mm3 (4.2-5.4); White Blood Count 9.9 K/mm3 (4.4-11.0)
[2024-10-17 21:09] LABS: Red Blood Cells-Urine 0-5 SEEN /hpf (0-5)
[2024-10-17 21:10] LABS: Squamous Epithelial Cells - UA 0-5 SEEN /hpf (5-10)
[2024-10-17 21:20] LABS: Anion Gap 12 (5-15); BUN 12 mg/dL (4-19); BUN/Creat Ratio 13.7 RATIO (10-20); Calcium,Total 9.4 mg/dL (7.6-11.0); Carbon Dioxide 23.3 mmol/L (21.0-32.0); Chloride 102 mmol/L (98-108); Estimated Creatinine Clearance 75.71 ml/min (50-250); Glucose 95 mg/dL (70-99); Potassium 4.1 mmol/L (3.3-5.1)
[2024-10-17 21:44] VITALS: BP 98/63; PULSE 74; RESP 16; TEMP 36.8; O2SAT 95
[2024-10-17 22:22] VITALS: BP 98/63; PULSE 74; RESP 16; TEMP 36.8; O2SAT 95
== END 2024-10-17 22:36 | disposition home or self-care (01) ==
PROVIDERS: Emergency Provider Emergency Medicine; PCP Family Medicine; Visit Provider Emergency Medicine
DX: N20.0 Calculus of kidney (principal); E11.9 Type 2 diabetes mellitus without complications; Z78.0 Asymptomatic menopausal state; E78.00 Pure hypercholesterolemia, unspecified; Z79.84 Long term (current) use of oral hypoglycemic drugs; R31.9 Hematuria, unspecified; Z87.442 Personal history of urinary calculi; Z79.890 Hormone replacement therapy; K21.9 Gastro-esophageal reflux disease without esophagitis; J45.909 Unspecified asthma, uncomplicated
CPT/HCPCS: 74176; 80048; 81001; 85025; 96361; 96374; 96375; 99283; J2405

== ENCOUNTER 2024-12-21 10:46 | Emergency (ER) | payer BC, SELFPAY ==
[2024-12-21 10:46] VITALS: BP 135/108; PULSE 82; RESP 18; TEMP 36.6; O2SAT 100; BMI 29.0
--- NOTE | 2024-12-21 11:18 | EX.ED.DYSGE1 ---
HPI History of Present Illness Chief Complaint: Flank Pain Narrative Narrative: Pt is a 54-year-old female who is presenting to the ER today with chief complaint of right lower inguinal pain, right flank pain, right lower back pain. Patient had a dull ache to her right lower back earlier this week. Patient states that she has passed 3-5 kidney stones in the past. She has no urinary frequency urgency or burning, she does have bladder pressure. Patient is here because the pain was much worse this morning to her right lower inguinal area, also including nausea. Patient drove to the ER, but she can get a ride home. Patient states that she is going through menopause and not . Patient still has her appendix and gallbladder. Patient has no heavy lifting, no rash, no other acute complaints. Patient is in tears secondary to pain. REVIEW OF SYSTEMS: Unless otherwise stated in this report the patient's positive and negative responses for review of systems for constitutional, eyes, ENT, cardiovascular, respiratory, gastrointestinal, neurological, , musculoskeletal, and integument systems and related systems to the presenting problem are either stated in the history of present illness or were not pertinent or were negative for the symptoms and/or complaints related to the presenting medical problem. Nurse's notes and vital signs reviewed. The patient is not hypoxic. General: Alert, moderate stress secondary to pain, patient sitting up uncomfortable, tears, holding her right lower inguinal area. Patient is not toxic or lethargic. Skin: warm, intact, no pallor noted Head: Normocephalic, atraumatic Eye: Normal conjunctiva Ears, Nose, Throat: Mucous membranes moist Neck: No anterior/posterior lymphadenopathy noted. no erythema, no masses, no fluctuance or induration noted. No meningeal signs. Cardio: Regular Rate and Rhythm Respiratory: No acute distress, no rhonchi, wheezing or rales noted. No stridor or retractions are noted. Abdomen: Patient has mild right flank tenderness to palpation, mild right CVA tenderness palpation, no right lower quadrant tenderness to palpation, no right inguinal tenderness to palpation, mild suprapubic tenderness to palpation, no left CVA left flank left lower quadrant and left inguinal tenderness to palpation, the rest of her abdomen is soft, nontender, no masses detected. No rebound, guarding, or rigidity noted. Neurological: Appropriate for age Psychiatric: [facility] Medical History (Updated 12/21/24 @ 13:[address] Clark San, DO) Urinary tract infection (~12/21/24) GERD (gastroesophageal reflux disease) Sleep apnea Kidney stones Diabetes Psoriatic arthritis Restless legs Injury of head and neck Asthma CPAP (continuous positive airway pressure) dependence History of deviated nasal septum Wears glasses High cholesterol Migraine headache History of hiatal hernia Non-smoker Endocervical polyp Psoriasis Abnormal uterine bleeding Abnormal Pap smear of cervix Anxiety Asthma Home Medications ?Medication ?Instructions ?Recorded ?Last Taken ?Type albuterol sulfate 90 mcg/actuation 1 puff inhalation Q6H PRN 06/28/17 12/29/21 History aerosol inhaler (ProAir HFA) shortness of breath or wheezing psyllium husk 0.4 gram capsule 0.4 g PO DAILY PRN constipation 03/09/23 11/16/23 History (Daily Fiber) estradiol 0.0375 mg/24 hr 1 patch transdermal .EVERY 3 DAYS 11/10/23 11/16/23 History semiweekly transdermal patch (Adelina) omeprazole 40 mg capsule,delayed 40 mg PO QHS 11/10/23 11/16/23 History release progesterone micronized 100 mg 100 mg PO QHS 11/10/23 11/16/23 History capsule tirzepatide (weight loss) 10 10 mg subcut STEELE 11/10/23 10/27/23 History mg/0.5 mL subcutaneous pen injector (Zepbound) ondansetron 4 mg disintegrating 4 mg PO Q8H PRN nausea and 12/01/23 Unknown Rx tablet vomiting #10 tabs Saccharomyces boulardii 250 mg 250 mg PO BID 10/22/24 Unknown History capsule (Daily Probiotic (S. boulardii)) cholecalciferol (vitamin D3) 25 25 mcg PO QDAY 10/22/24 Unknown History mcg (1,000 unit) capsule minoxidil 2.5 mg tablet 2.5 mg PO QDAY 10/22/24 Unknown History phytonadione (vitamin K1) 5 mg 5 mg PO QDAY 10/22/24 Unknown History tablet cephalexin 500 mg capsule 500 mg PO Q12 #14 CAPSULES 12/21/24 Unknown Rx hydrocodone-acetaminophen 5-325mg 1 tab PO Q4H PRN PRN Pain 3 days 12/21/24 Unknown Rx 5mg-325mg #8 TABLETS ketorolac 10 mg tablet 10 mg PO Q8H 3 days #9 tabs 12/21/24 Unknown Rx ondansetron 4 mg disintegrating 4 mg PO Q8H PRN PRN Nausea #10 tabs 12/21/24 Unknown Rx tablet tamsulosin 0.4 mg capsule 0.4 mg PO DAILY #7 CAPSULES 12/21/24 Unknown Rx Allergy/AdvReac Type Severity Reaction Status Date / Time oxycodone Allergy headache Verified 12/21/24 10:46 Family History Father Colon cancer Grandfather Colon cancer paternal Brother Colon cancer Mother Breast cancer, Onset Age: 71 Uncle Colon cancer Grandfather Colon cancer maternal Surgical History Hx of esophagogastroduodenoscopy Hx of colonoscopy History of Hx of dilation and curettage Hx of tonsillectomy Hx of breast reduction, elective H/O LEEP Social History Smoking Status: Never smoker alcohol intake: current details: social substance use type: does not use caffeine: Yes what type of physical activity do you participate in: walking seatbelt use: always do you feel safe at home: Yes additional social history: is Ioana (BLOCK H[employer] at [employer] in [place]) Patient works at [employer] ESC EXAM Physical Exam Const Vital Signs: 12/21/24 10:46 12/21/24 11:54 12/21/24 13:00 Temperature 97.8 F 98.3 F Temperature Source Oral Oral Pulse Rate 82 60 72 Respiratory Rate 18 16 Blood Pressure 135/108 H 109/63 104/63 Blood Pressure Mean 117 78 76 Pulse Ox 100 98 99 Oxygen Delivery Method Room Air Room Air Room Air 12/21/24 13:55 Temperature 98.2 F Temperature Source Pulse Rate 76 Respiratory Rate 16 Blood Pressure 113/72 Blood Pressure Mean 85 Pulse Ox 99 Oxygen Delivery Method MDM MDM MDM Narrative Medical decision making narrative: Patient seen and examined: IV, fluids, Toradol, Zofran, morphine, KUB which patient agrees to secondary to having several CAT scans Differential diagnosis includes but is not limited to: UTI, pyelonephritis, kidney stones, ovarian cyst, Relevant laboratory interpretation: KUB shows no acute stone, no acute abnormality. Urine shows blood, leuk esterase, protein. Radiological studies: KUB shows no acute findings Reevaluation: Patient felt much better after IV fluids, Zofran, morphine and Toradol. Patient was reexamined at discharge, she has no abdominal pain. No right lower quadrant suprapubic or right inguinal pain. Etiology, most likely not ovarian tubo-ovarian abscess, or torsion Less likely ovarian etiology. Social barriers to healthcare: There are no food insecurities, there is no issue with transportation, there are no insurance barriers Disposition:home Lab Data Labs: Laboratory Results - last 24 hr 12/21/24 12/21/24 11:25 11:30 WBC 8.6 RBC 4.89 Hgb 15.4 H Hct 44.5 MCV 91.0 MCH 31.5 MCHC 34.6 RDW Std Deviation 43.0 RDW Coeff of John 12.9 Plt Count 297 MPV 9.5 Immature Gran % (Auto) 0.200 Neut % (Auto) 65.9 Lymph % (Auto) 25.5 [place] % (Auto) 6.4 Eos % (Auto) 1.7 Baso % (Auto) 0.3 Absolute Neuts (auto) 5.7 Absolute Lymphs (auto) 2.19 Nucleated RBC % 0 Sodium 138 Potassium 4.1 Chloride 104 Carbon Dioxide 21.1 Anion Gap 13 BUN 15 Creatinine 0.71 Estim Creat Clear Calc 88.53 Est GFR (MDRD) Non-Af 102 BUN/Creatinine Ratio 21.6 H Glucose 80 Calcium 9.2 Total Bilirubin 0.47 AST 12 ALT 6 Alkaline Phosphatase 65 Total Protein 7.3 Albumin 4.5 Globulin 2.7 Albumin/Globulin Ratio 1.7 Lipase 48 Urine Color Yellow Urine Clarity Clear Urine pH 6.5 Ur Specific [place] 1.010 Urine Protein 30 H Urine Glucose (UA) Normal Urine Ketones Negative Urine Occult Blood 150 H Urine Nitrite Negative Urine Bilirubin Negative Urine Urobilinogen Normal Ur Leukocyte Esterase 100 H Urine RBC 0-5 SEEN Urine WBC 0 SEEN Ur Squamous Epith Cells 0-5 SEEN Urine Bacteria RARE Urine Mucus 0 SEEN Radiography Diagnostic Testing: Clinical Impression(s) from Imaging Studies KUB X-Ray 12/21/24 11:30 IMPRESSION: No evidence of urinary tract calculus. Normal bowel pattern. Mild bilateral SI joint sclerosis most likely degenerative. Reading Location: [facility] Discharge Plan Triage Chief Complaint: Flank Pain ED Provider: Clark San Dx/Rx/DC Orders Clinical Impression: Renal colic on right side, Hematuria, Abdominal pain, Proteinuria Instructions: Abdominal Pain, ED Kidney Stone, Passed, ED Proteinuria, ED Urine Strainer, ED Kidney Stone with Pain, ED UTIs Women Prescriptions: New tamsulosin 0.4 mg capsule 0.4 mg PO DAILY Qty: 7 0RF ondansetron 4 mg tablet,disintegrating 4 mg PO Q8H PRN PRN (Reason: Nausea) Qty: 10 0RF ketorolac 10 mg tablet 10 mg PO Q8H 3 Days Qty: 9 0RF cephalexin 500 mg capsule 500 mg PO Q12 Qty: 14 0RF hydrocodone-acetaminophen 5-325 mg tablet 1 tab PO Q4H PRN PRN (Reason: Pain) 3 Days Qty: 8 0RF No Action albuterol sulfate [ProAir HFA] 90 mcg/actuation HFA aerosol inhaler 1 puff INHALATION Q6H PRN (Reason: shortness of breath or wheezing) psyllium husk [Daily Fiber] 0.4 gram capsule 0.4 g PO DAILY PRN (Reason: constipation) cholecalciferol (vitamin D3) 25 mcg (1,000 unit) capsule 25 mcg PO QDAY phytonadione (vitamin K1) 5 mg tablet 5 mg PO QDAY Saccharomyces boulardii [Daily Probiotic (S. boulardii)] 250 mg capsule 250 mg PO BID minoxidil 2.5 mg tablet 2.5 mg PO QDAY estradiol [Adelina] 0.0375 mg/24 hr patch semiweekly 1 patch transdermal .EVERY 3 DAYS progesterone micronized 100 mg capsule 100 mg PO QHS omeprazole 40 mg capsule,delayed release(DR/EC) 40 mg PO QHS Zepbound 10 mg/0.5 mL pen injector 10 mg subcut STEELE ondansetron 4 mg tablet,disintegrating 4 mg PO Q8H PRN (Reason: nausea and vomiting) Qty: 10 0RF Stand Alone Forms: ED Work / School Excuse Primary Care Provider: Clark Uribe Referrals: Jyotsna Mcwilliams MD [Med Staff - Active Staff, Urology] Clark Uribe MD [Primary Care Provider, Family Practice] Activity Restrictions/Additional Instructions: Increase liquids, cranberry juice, water for the next 3 to 5 days. Use urine strainer for the next 2 to 3 days. Take Flomax daily, use Zofran and Toradol as needed for nausea and pain. You may alternate Tylenol and either Motrin, Advil, ibuprofen every 4 hours as needed for pain/fever. Take anti-inflammatories with food or drink to help buffer the medication. MAX dose of Tylenol is 3000 mg a day. MAX dose of Motrin, Advil, ibuprofen is 2400 mg a day. Print Language: Samoan Disposition Disposition: Home, Self Care Discharge Date/Time: 12/21/24 13:57
[2024-12-21] MEDS: 0.9% Normal Saline (1000mL) 1,000 ML 999 ML IV (11:26)
[2024-12-21 11:30] LABS: Hematocrit 44.5 % (37-47); Hemoglobin 15.4 g/dL (12.0-15.0); Immature Granulocytes Count 0.020 X10^3/uL (0.0-0.0); Mean Corp Hgb Conc 34.6 g/dL (32-36); Mean Corpuscular Volume 91.0 fL (81-99); Mean Platelet Vol. 9.5 fl (6.2-12.0); NRBC Flagged by Analyzer 0 % (0-5); Platelet Count 297 K/mm3 (150-450); RBC Distribution Width CV 12.9 % (11.6-14.6); RBC Distribution Width SD 43.0 fl (35.1-43.9); Red Blood Count 4.89 M/mm3 (4.2-5.4); White Blood Count 8.6 K/mm3 (4.4-11.0)
--- NOTE | 2024-12-21 11:30 | RAD_ITS ---
PROCEDURE: ABDOMEN SINGLE VIEW 12/21/2024 REASON FOR EXAM: STONES TECHNIQUE: Procedure Code: RADABD Modality: DX Procedure: ABDOMEN SINGLE VIEW COMPARISON: Abdomen CT 10/17/2024. FINDINGS: Normal bowel-gas pattern. No definite free air, obstruction, or ileus. Portions of the right upper abdomen are excluded from the imaging field. Mild bilateral SI joint sclerosis is likely degenerative. Vascular calcifications in the pelvis. No definite renal or ureteral calculus is identified radiographically. No other abnormality.. RAD/Abdomen Single View IMPRESSION: No evidence of urinary tract calculus. Normal bowel pattern. Mild bilateral SI joint sclerosis most likely degenerative. Reading Location: [facility]
[2024-12-21 11:35] LABS: Mucous, Urine 0 SEEN /hpf (<or=2+)
[2024-12-21 11:49] LABS: Color, Urine Yellow (Yellow); Glucose, Dipstick Normal (Normal); Ketone-Dipstick Negative (Negative); Leukocyte Esterase-Dipstick 100 /ul (Negative); Nitrite-Dipstick Negative (Negative); Occult Blood-Urine 150 /ul (Negative); Protein-Dipstick 30 mg/dl (Negative); Specific Gravity, Urine 1.010 (1.002-1.030); Urine Bilirubin Dipstick Negative (Negative)
[2024-12-21 11:54] VITALS: BP 109/63; PULSE 60; RESP 16; TEMP 36.8; O2SAT 98
[2024-12-21 12:10] LABS: Red Blood Cells-Urine 0-5 SEEN /hpf (0-5); Squamous Epithelial Cells - UA 0-5 SEEN /hpf (5-10)
[2024-12-21 12:23] LABS: AST(SGOT) 12 U/L (<=31); Alanine Aminotransfer ALT/SGPT 6 U/L (<=34); Albumin, Serum 4.5 g/dL (3.5-5.0); Alkaline Phosphatase 65 U/L (35-104); Anion Gap 13 (5-15); BUN 15 mg/dL (4-19); BUN/Creat Ratio 21.6 RATIO (10-20); Calcium,Total 9.2 mg/dL (7.6-11.0); Carbon Dioxide 21.1 mmol/L (21.0-32.0); Chloride 104 mmol/L (98-108); Estimated Creatinine Clearance 88.53 ml/min (50-250); Globulin 2.7 g/dL (2.2-4.2); Glucose 80 mg/dL (70-99); Lipase 48 U/L (13-75); Potassium 4.1 mmol/L (3.3-5.1)
[2024-12-21 13:00] VITALS: BP 104/63; PULSE 72; O2SAT 99
[2024-12-21 13:55] VITALS: BP 113/72; PULSE 76; RESP 16; TEMP 36.8; O2SAT 99
== END 2024-12-21 13:57 | disposition home or self-care (01) ==
PROVIDERS: Emergency Provider Emergency Medicine; PCP Family Medicine; Visit Provider Emergency Medicine
DX: R10.31 Right lower quadrant pain (principal); L40.50 Arthropathic psoriasis, unspecified; E11.9 Type 2 diabetes mellitus without complications; R31.9 Hematuria, unspecified; R80.9 Proteinuria, unspecified; R11.0 Nausea; M54.50 Low back pain, unspecified; K21.9 Gastro-esophageal reflux disease without esophagitis; G47.30 Sleep apnea, unspecified; J45.909 Unspecified asthma, uncomplicated; Z87.19 Personal history of other diseases of the digestive system; Z79.85 Long-term (current) use of injectable non-insulin antidiabetic drugs; Z87.442 Personal history of urinary calculi; Z87.440 Personal history of urinary (tract) infections; Z79.899 Other long term (current) drug therapy
CPT/HCPCS: 36415; 74018; 80053; 81001; 83690; 85025; 96361; 96374; 96375; 99283; A4216; J2405